=== PATIENT | female | born 1950 | race Caucasian/White ===

== ENCOUNTER → 2016-12-07 | Outpatient (CLI) | payer BC, OTHER ==
[~2016-12-07] MED LIST: ASPCH81X PO; BIOT1CAP8 PO; CALC-51 PO; CHOL20009 PO; DICY10CA12 PO; FLUT0.15 NAE; GLUC1CAP33 PO; LEVO75TA5 PO; MULT-506 PO; NAPR1CAP12 PO; PRM/3 PO; ROSU5TAB PO; TYLOTC500 PO; VITACAP26 PO
[2016-12-07 13:13] LABS: ALT/SGPT 35 U/L (12-78); BLOOD UREA NITROGEN 10 mg/dl (7-18); BUN/CREATININE RATIO 15.8 (10-20); CALCIUM 9.6 mg/dl (8.5-10.1); CARBON DIOXIDE 26 mmol/L (21-32); CHLORIDE 107 mmol/L (98-107); CHOLESTEROL 189 mg/dl (0-200); CREATININE 0.66 mg/dl (0.60-1.20); GLUCOSE 89 mg/dl (70-99); POTASSIUM 4.4 mmol/L (3.5-5.1); SODIUM 142 mmol/L (136-145); TRIGLYCERIDES 140 mg/dl (0-150); VERY LOW DENSITY LIPOPROT CALC 28 mg/dl
[2016-12-07 13:23] LABS: ALB/GLOB RATIO 1.1 (0.9-2); ALKALINE PHOSPHATASE 85 U/L (45-117); AST/SGOT 24 U/L (15-37); CHOLESTEROL/HDL RATIO 2.7; HDL CHOLESTEROL 70 mg/dl; LDL CHOLESTEROL CALCULATED 91 mg/dl; THYROID STIMULATING HORMONE 0.994 uIu/ml (0.300-4.500)
== END | disposition home or self-care (01) ==
LOC: C.LABBFT 09:56
PROVIDERS: ATTEND Nurse Practitioner
DX: E78.5 Hyperlipidemia, unspecified (principal); E03.9 Hypothyroidism, unspecified

== ENCOUNTER → 2017-02-22 | Outpatient (CLI) | payer OTHER ==
--- NOTE | 2017-02-27 09:09 | CODING QUERY MEDICAL NECESSITY ---
SUPPORTING DIAGNOSIS NEEDED Dr. Henson, A supporting diagnosis is required for the test/procedure performed on this patient in order for us to be reimbursed by the patient's insurance. Please provide a supporting diagnosis for the following test/procedure listed below next to the test name along with your signature. *If there is no additional diagnosis for this patient that would support the following test/procedure please document that below next to the test/procedure. Test(s)/Procedure(s) that require a supporting diagnosis: * ([id number]) DXA BONE DENSITY, AXIAL DIAGNOSIS: DATE OF SERVICE: 02/22/17 Provider Signature: Date: Thank you Rufus Taylor [facility] Information Management Once completed, please kindly fax back to [phone] For questions please call [phone]
== END | disposition home or self-care (01) ==
LOC: C.MAMM 10:51
PROVIDERS: ATTEND Nurse Practitioner
DX: Z13.820 Encounter for screening for osteoporosis (principal); E89.40 Asymptomatic postprocedural ovarian failure; Z79.899 Other long term (current) drug therapy

== ENCOUNTER → 2017-03-30 | Outpatient (CLI) | payer BC, OTHER ==
--- NOTE | 2017-03-30 14:53 | MAMMOGRAPHY REPORT ---
BILATERAL DIGITAL SCREENING MAMMOGRAM WITH CAD: 03/30/2017 CLINICAL HISTORY: Routine screening. Patient has no complaints. TECHNIQUE: Current study was also evaluated with a Computer Aided Detection (CAD) system. Bilatera l CC and MLO views were obtained. COMPARISON: Comparison is made to exams dated: 03/24/2015 mammogram, 03/23/2014 mammogram, 03/19/2013 dilshad mogram, 03/18/2012 mammogram, 03/17/2011 mammogram, and 03/16/2010 mammogram - [facility] nt. BREAST COMPOSITION: The tissue of both breasts is almost entirely fatty. FINDINGS: No suspicious masses, calcifications, or areas of architectural distortion are noted in e ither breast. There has been no significant interval change compared to prior exams. Scattered bilat eral benign-appearing calcifications are not significantly changed. IMPRESSION: ACR BI-RADS CATEGORY 2: BENIGN There is no mammographic evidence of malignancy. A 1 year screening mammogram is recommended. The p atient will receive written notification of the results. Approximately 10% of breast cancers are not detected with mammography. A negative mammographic repor t should not delay biopsy if a clinically suggestive mass is present. Lucinda Amor M.D. /:03/30/2017 12:48:38 Environmental Remediation Specialist: Marbella VALENZUELA(Humaira)(Josep)(ELIZABETH), [facility] letter sent: Normal 1/2 BI-RADS Code: ACR BI-RADS Category 2: Benign
== END | disposition home or self-care (01) ==
LOC: C.MAMM 10:10
PROVIDERS: ATTEND Nurse Practitioner
DX: Z12.31 Encounter for screening mammogram for malignant neoplasm of breast (principal); Z79.899 Other long term (current) drug therapy; E87.5 Hyperkalemia; E03.9 Hypothyroidism, unspecified; M15.9 Polyosteoarthritis, unspecified; J31.0 Chronic rhinitis

== ENCOUNTER → 2017-06-12 | Outpatient (CLI) | payer OTHER ==
[2017-06-12 12:48] LABS: ALB/GLOB RATIO 1.1 (0.9-2); ALKALINE PHOSPHATASE 84 U/L (45-117); ALT/SGPT 33 U/L (12-78); AST/SGOT 24 U/L (15-37); BLOOD UREA NITROGEN 14 mg/dl (7-18); BUN/CREATININE RATIO 19.4 (10-20); CALCIUM 9.3 mg/dl (8.5-10.1); CARBON DIOXIDE 29 mmol/L (21-32); CHLORIDE 105 mmol/L (98-107); CHOLESTEROL 206 mg/dl (0-200); GLUCOSE 89 mg/dl (70-99); HDL CHOLESTEROL 68 mg/dl; POTASSIUM 3.9 mmol/L (3.5-5.1); SODIUM 140 mmol/L (136-145)
[2017-06-12 13:02] LABS: LDL CHOLESTEROL CALCULATED 106 mg/dl; TRIGLYCERIDES 161 mg/dl (0-150); VERY LOW DENSITY LIPOPROT CALC 32 mg/dl
--- NOTE | 2017-06-19 09:11 | CODING QUERY MEDICAL NECESSITY ---
SUPPORTING DIAGNOSIS NEEDED Sixto SON, A supporting diagnosis is required for the test/procedure performed on this patient in order for us to be reimbursed by the patient's insurance. Please provide a supporting diagnosis for the following test/procedure listed below next to the test name along with your signature. *If there is no additional diagnosis for this patient that would support the following test/procedure please document that below next to the test/procedure. Test(s)/Procedure(s) that require a supporting diagnosis: * ([id number]) VITAMIN D ASSAY DIAGNOSIS: DATE OF SERVICE: 06/12/17 Provider Signature: Date: Thank you Rufus Taylor [facility] Information Management Once completed, please kindly fax back to [phone] For questions please call [phone]
== END | disposition home or self-care (01) ==
LOC: C.LABBFT 10:10
PROVIDERS: ATTEND Nurse Practitioner
DX: M15.9 Polyosteoarthritis, unspecified (principal); E78.5 Hyperlipidemia, unspecified; E03.9 Hypothyroidism, unspecified; Z13.820 Encounter for screening for osteoporosis

== ENCOUNTER → 2017-10-18 | Outpatient (CLI) | payer OTHER ==
[2017-10-18 14:39] LABS: URINE APPEARANCE CLEAR (CLEAR); URINE BILIRUBIN NEG (NEG); URINE COLOR YELLOW; URINE NITRITE NEG (NEG); URINE SPECIFIC GRAVITY 1.019 (1.000-1.030); UROBILINOGEN NEG (NEG)
[2017-10-18 14:40] LABS: MANUAL MICROSCOPIC REQUIRED? NO; REVIEW REQ? NO
[2017-10-18 14:42] LABS: BASO % 0.4 %; BASO ABS # 0.03 K/uL (0-0.2); COMPLETE YES; EOS % 2.2 %; HEMATOCRIT 42.3 % (37-47); IG% 0.3 %; LYMPH % 24.8 %; LYMPH ABS # 1.78 K/uL (1.2-3.4); MEAN CELL VOLUME 96.6 fL (80-100); MEAN CORPUSCULAR HEMOGLOBIN 32.2 pg (25-34); MEAN CORPUSCULAR HGB CONC 33.3 g/dl (32-36); MEAN PLATELET VOLUME 10.8 fL (7.4-10.4); MONO % 6.5 %; NEUT % 65.8 %; PLATELET COUNT 296 K/uL (130-400); RED BLOOD COUNT 4.38 M/uL (4.2-5.4); WHITE BLOOD COUNT 7.19 K/uL (4.8-10.8)
== END | disposition home or self-care (01) ==
LOC: C.LAB1850 12:19
PROVIDERS: ATTEND Obstetrics & Gynecology
DX: Z01.812 Encounter for preprocedural laboratory examination (principal)

== ENCOUNTER → 2017-11-16 | Day surgery (SDC) | payer OTHER ==
[2017-11-01 09:20] VITALS: BMI 45.0
[~2017-11-16] VITALS: Ht 160 cm; Wt 115.9 kg
[~2017-11-16] MED LIST changes: +ATROPINE SULFATE 0.1 MG/ML 5ML SYR IV PRN; +BIOT1CAP3 PO; -BIOT1CAP8 PO; +BUPIVACAINE 0.5 % 5 MG/1 ML MPF 30ML VIAL ONE; -DICY10CA12 PO; +EpHEDrine SULFATE INJ 50 MG/ML AMP IV PRN; +FENTANYL CITRATE INJ 50 MCG/1 ML 2 ML VIAL IV PRN; +FENTANYL CITRATE INJ 50 MCG/1 ML 2 ML VIAL ONE; +HYDR-5688 PO; +HYDROmorphone INJ 1 MG/ML SYR IV PRN; +KETOROLAC TROMETHAMINE 30 MG/ML VIAL IV. PRN; +LABETALOL HCL IV 5 MG/ML 20ML IV PRN; +LACTATED RINGER'S 1000ML 1,000 ML IV SCH; +LIDOCAINE HCL 2% 2 ML VIAL (20MG/ML) ONE; +MEPERIDINE HCL 25 MG/ML CARP IV PRN; +MIDAZOLAM HCL 1 MG/ML 2ML VIAL ONE; +ONDANSETRON INJ 2 MG/ML 2 ML VIAL IV PRN; +ONDANSETRON INJ 2 MG/ML 2 ML VIAL ONE; +OXYCODONE/ACETAMINOPHEN 5-325 TAB PO PRN; -PRM/3 PO; +PROPOFOL IV EMULSION 10 MG/ML 20 ML VIAL IV ONE; +SILVER NITR/POTASSIUM NITRATE APPLICATOR ONE; +SODIUM CHLORIDE 0.9% 1000ML 1,000 ML IV SCH
[2017-11-16 08:57] VITALS: BP 165/71; PULSE 87; TEMP 36.9; O2SAT 96; Ht 160 cm; Wt 115.9 kg
--- NOTE | 2017-11-16 10:42 | History & Physical Bridge Note ---
H&P Re-Evaluation Bridge Note: I have examined the patient, reviewed the History & Physical and in the interval since the performance of the History & Physical I have noted the following changes of clinical significance: No changes noted
--- NOTE | 2017-11-16 12:07 | [facility] Post Operative Brief Note ---
Immediate Operative Summary Operative Date Nov 16, 2017. Pre-Operative Diagnosis Bartholin Gland Cyst Post-Operative Diagnosis Bartholin Gland Cyst Procedure(s) Performed Right Marsupialization and Removal Bartholin's Cyst Surgeon Dr. Grace Lopez Television Inspector Surgeon(s) None Estimated Blood Loss 100ml Findings 2cm Bartholin's Cyst. Otherwise normal appearing tissue. Specimens Permanent Solution: A.) Bartholin's Gland Cyst Drains none, bladder drained prior to procedure Anesthesia general Complication(s) None Disposition Recovery Room / PACU
--- NOTE | 2017-11-16 12:10 | Discharge Instructions ---
Discharge Instructions Date of Service Nov 16, 2017. Visit Reason for Visit: Bartholin Gland Cyst Discharge Discharge Diagnosis / Problem: Bartholin Gland Cyst Discharge Goals Goal(s): Diagnostic testing, Therapeutic intervention Activity Recommendations Activity Limitations: per Instructions/Follow-up section Anesthesia . Post Anesthesia Instructions: If you have had General Anesthesia or IV Sedation: * Do not drive today. * Resume driving when surgeon permits. * Do not make important decisions or sign legal documents today. * Call surgeon for: 1. Temperature elevations greater than 101 degrees F. 2. Uncontrollable pain. 3. Excessive bleeding. 4. Persistent nausea and vomiting. 5. Medication intolerance (nausea, vomiting or rash). * For nausea and vomiting use only clear liquids such as: tea, soda, bouillon until nausea subsides, then gradually increase diet as tolerated. * If you have any concerns or questions, call your surgeon's office. If physician is unavailable and it is an emergency, call 911 or go to the nearest emergency room. . Instructions / Follow-Up Instructions / Follow-Up ACTIVITY RECOMMENDATIONS: * Avoid tampons, douching, hot tubs, pools, and intercourse until bleeding has stopped. * May shower as usual. * No strenuous activity for 24-48 hours. After 24-48 hours, you may do anything you feel like doing (driving and sports are okay). SPECIAL CARE INSTRUCTIONS: Special Diet: * Mild nausea may occur in the immediate post-operative period. * Take clear liquids such as tea, cola or bouillon until all nausea has subsided; you may then resume your normal diet. Special Care: * Light bleeding and vaginal spotting can last from a few days to 3-4 weeks. Call your doctor if bleeding becomes heavier than the heaviest part of your period. * Check your temperature twice a day for one week. If it goes above 100.4 degrees Fahrenheit (38.0 Celsius), notify your doctor. * Call your doctor's office for an appointment for 2 weeks after your surgery. FOLLOW-UP VISIT: Call your doctor's office for an appointment for 2 weeks after your surgery. Diet Recommendations Recommended Home Diet: resume previous diet Procedures Procedures Performed: Right Marsupialization and Removal Bartholin's Cyst Pending Studies Studies pending at discharge: yes List of pending studies: pathology - Bartholin's cyst Medical Emergencies . Who to Call and When: Medical Emergencies: If at any time you feel your situation is an emergency, please call 911 immediately. . Non-Emergent Contact Non-Emergency issues call your: Primary Care Provider, Instructional Specialist . . "Provider Documentation" section prepared by Grace Lopez. . [place] Drug Monitoring Program Search Results: patient reviewed within database
--- NOTE | 2017-11-16 12:37 | OPERATIVE REPORT ---
DATE OF OPERATION: 11/16/2017 PREOPERATIVE DIAGNOSIS: Bartholin gland cyst. POSTOPERATIVE DIAGNOSIS: Same. PROCEDURES PERFORMED: Right marsupialization and removal of Bartholin cyst. SURGEON: Grace Lopez DO REVIT DRAFTER: None. ESTIMATED BLOOD LOSS: 100 mL. FINDINGS: A 2-cm Bartholin cyst. Otherwise normal appearing tissue. SPECIMENS: Bartholin gland cyst. DRAINS: None. Bladder drained prior to procedure. ANESTHESIA: General. COMPLICATIONS: None. DISPOSITION: Stable and good to recovery room. INDICATIONS FOR PROCEDURE: The patient is a 66-year-old who had a persistent right Bartholin cyst, approximately 2 cm. It was noticeable, but not tender due to the patient's age and therefore, risk for malignancy, she elected to have it removed. DESCRIPTION OF PROCEDURE: The patient was seen in the preoperative holding area, where risks, benefits, and alternatives were reviewed. She elected to proceed with the case. All questions were answered to her satisfaction. She had previously signed an informed consent in the office under no duress. She was taken to the operating room, where general anesthesia was administered. She was prepared and draped in the usual sterile fashion in the dorsal lithotomy position with feet in Yellofin stirrups. Allis clamps were used to retract tissue to visualize the Bartholin cyst. It was right-sided nondraining and approximately 2 cm mobile. A scalpel was used to make an incision on the anterior aspect of the hymenal ring. I attempted to shell out the cyst wall; however, the cyst ruptured for clear fluid during this process. Therefore, the cyst wall was grasped with hemostats and carefully dissected from the surrounding tissue with both blunt dissection and Bovie cautery. This was then sent to pathology. Using Bovie cautery, hemostasis was attempted. Due to multiple small oozing bleeders, 3-0 Vicryl stitch suture was used to suture the Bartholin cyst wall edges in a circumferential fashion. Excellent hemostasis was achieved. The patient was then taken to the recovery area in stable and good condition. I attest to the content of the Intraoperative Record and any orders documented therein. Any exception s are noted below.
--- NOTE | 2017-11-16 12:58 | Anesthesiology Progress Note ---
Anesthesia Post Op Note Date & Time Nov 16, 2017 at 12:57 Vital Signs Pain Intensity: 0 Vital Signs Past 12 Hours Date Time Temp Pulse Resp B/P (MAP) Pulse Ox O2 Delivery O2 Flow Rate FiO2 11/16/17 12:51 85 23 96 11/16/17 12:51 86 23 11/16/17 12:50 154/85 11/16/17 12:46 84 17 98 11/16/17 12:46 85 17 11/16/17 12:45 136/84 11/16/17 12:41 80 15 11/16/17 12:41 81 15 99 11/16/17 12:40 135/76 11/16/17 12:36 85 17 11/16/17 12:36 84 17 132/82 98 11/16/17 12:33 36.7 89 19 132/82 (97) 98 11/16/17 12:31 95 19 98 11/16/17 12:31 94 19 11/16/17 12:30 139/87 11/16/17 12:29 91 18 11/16/17 12:29 89 18 96 11/16/17 12:29 89 18 96 11/16/17 12:29 91 18 11/16/17 12:25 131/87 11/16/17 12:25 131/87 11/16/17 12:24 93 15 97 11/16/17 12:24 93 15 97 11/16/17 12:24 91 15 11/16/17 12:24 91 15 11/16/17 12:20 120/76 11/16/17 12:20 120/76 11/16/17 12:19 93 17 95 11/16/17 12:19 95 17 11/16/17 12:19 93 17 95 11/16/17 12:19 95 17 11/16/17 12:15 123/65 11/16/17 12:15 123/65 11/16/17 12:14 89 12 11/16/17 12:14 89 12 11/16/17 12:14 88 12 99 11/16/17 12:14 88 12 99 11/16/17 12:10 132/71 11/16/17 12:10 132/71 11/16/17 12:09 36.4 88 12 136/77 (98) 98 Nasal Cannula 2 11/16/17 12:09 88 14 136/77 95 11/16/17 12:09 88 14 136/77 95 11/16/17 12:09 88 14 11/16/17 12:09 88 14 11/16/17 08:57 36.9 87 20 165/71 (102) 96 Room Air Notes Mental Status: alert / awake / arousable, participated in evaluation Pt Amnestic to Procedure: Yes Nausea / Vomiting: adequately controlled Pain: adequately controlled Airway Patency, RR, SpO2: stable & adequate BP & HR: stable & adequate Hydration State: stable & adequate Anesthetic Complications: no major complications apparent
[2017-11-16 13:00] VITALS: BP 147/77; PULSE 85; TEMP 36.4; O2SAT 96
[2017-11-16 13:30] VITALS: BP 137/86; PULSE 73; TEMP 36.3; O2SAT 100
[2017-11-16 14:00] VITALS: BP 184/88; PULSE 77; TEMP 36.4; O2SAT 95
== END | disposition home or self-care (01) ==
LOC: C.ACU 08:35
PROVIDERS: ATTEND Obstetrics & Gynecology
DX: N75.0 Cyst of Bartholin's gland (principal); E78.5 Hyperlipidemia, unspecified; E03.9 Hypothyroidism, unspecified; E66.9 Obesity, unspecified; Z79.82 Long term (current) use of aspirin; E78.00 Pure hypercholesterolemia, unspecified; M19.90 Unspecified osteoarthritis, unspecified site; Z90.710 Acquired absence of both cervix and uterus; Z90.49 Acquired absence of other specified parts of digestive tract; Z88.0 Allergy status to penicillin; K21.9 Gastro-esophageal reflux disease without esophagitis

== ENCOUNTER → 2018-01-07 | Outpatient (CLI) | payer OTHER ==
[~2018-01-07] MED LIST changes: -ATROPINE SULFATE 0.1 MG/ML 5ML SYR IV PRN; -BUPIVACAINE 0.5 % 5 MG/1 ML MPF 30ML VIAL ONE; -EpHEDrine SULFATE INJ 50 MG/ML AMP IV PRN; -FENTANYL CITRATE INJ 50 MCG/1 ML 2 ML VIAL IV PRN; -FENTANYL CITRATE INJ 50 MCG/1 ML 2 ML VIAL ONE; -HYDR-5688 PO; -HYDROmorphone INJ 1 MG/ML SYR IV PRN; -KETOROLAC TROMETHAMINE 30 MG/ML VIAL IV. PRN; -LABETALOL HCL IV 5 MG/ML 20ML IV PRN; -LACTATED RINGER'S 1000ML 1,000 ML IV SCH; -LIDOCAINE HCL 2% 2 ML VIAL (20MG/ML) ONE; -MEPERIDINE HCL 25 MG/ML CARP IV PRN; -MIDAZOLAM HCL 1 MG/ML 2ML VIAL ONE; -ONDANSETRON INJ 2 MG/ML 2 ML VIAL IV PRN; -ONDANSETRON INJ 2 MG/ML 2 ML VIAL ONE; -OXYCODONE/ACETAMINOPHEN 5-325 TAB PO PRN; -PROPOFOL IV EMULSION 10 MG/ML 20 ML VIAL IV ONE; -SILVER NITR/POTASSIUM NITRATE APPLICATOR ONE; -SODIUM CHLORIDE 0.9% 1000ML 1,000 ML IV SCH
[2018-01-07 12:42] LABS: HEMATOCRIT 42.6 % (37-47); HEMOGLOBIN 14.3 g/dL (12.0-16.0); MEAN CELL VOLUME 96.2 fL (80-100); MEAN CORPUSCULAR HEMOGLOBIN 32.3 pg (25-34); MEAN CORPUSCULAR HGB CONC 33.6 g/dl (32-36); MEAN PLATELET VOLUME 10.6 fL (7.4-10.4); PLATELET COUNT 304 K/uL (130-400); RED CELL DISTRIBUTION WIDTH CV 14.2 % (11.5-14.5); RED CELL DISTRIBUTION WIDTH SD 49.8 fL (36.4-46.3); WHITE BLOOD COUNT 5.24 K/uL (4.8-10.8)
[2018-01-07 13:46] LABS: BLOOD UREA NITROGEN 13 mg/dl (7-18); CALCIUM 9.9 mg/dl (8.5-10.1); CARBON DIOXIDE 30 mmol/L (21-32); CHOLESTEROL 204 mg/dl (0-200); GLUCOSE 89 mg/dl (70-99); POTASSIUM 4.2 mmol/L (3.5-5.1); SODIUM 141 mmol/L (136-145)
[2018-01-07 13:49] LABS: LDL CHOLESTEROL CALCULATED 108 mg/dl
== END | disposition home or self-care (01) ==
LOC: C.LABBFT 09:40
PROVIDERS: ATTEND Nurse Practitioner
DX: E78.5 Hyperlipidemia, unspecified (principal)

== ENCOUNTER → 2018-04-01 | Outpatient (CLI) | payer OTHER ==
--- NOTE | 2018-04-02 15:04 | MAMMOGRAPHY REPORT ---
BILATERAL DIGITAL SCREENING MAMMOGRAM TOMOSYNTHESIS WITH CAD: 04/01/2018 CLINICAL HISTORY: Routine screening. Patient has no complaints. TECHNIQUE: Breast tomosynthesis in addition to standard 2D mammography was performed. Current study was also evaluated with a Computer Aided Detection (CAD) system. COMPARISON: Comparison is made to exams dated: 03/30/2017 mammogram, 03/27/2016 mammogram, 03/24/2015 dilshad mogram, 03/23/2014 mammogram, 03/19/2013 mammogram, and 03/18/2012 mammogram - [facility] BREAST COMPOSITION: The tissue of both breasts is almost entirely fatty. FINDINGS: There are scattered benign-appearing calcifications. A 10 mm focal asymmetry in the upper outer middle to posterior right breast is stable in size and visual appearance dating back to at leas t 03/16/2010, therefore considered benign. No suspicious mass, architectural distortion or cluster of microcalcifications is seen. IMPRESSION: ACR BI-RADS CATEGORY 1: NEGATIVE There is no mammographic evidence of malignancy. A 1 year screening mammogram is recommended. The pa tient will receive written notification of the results. Approximately 10% of breast cancers are not detected with mammography. A negative mammographic report should not delay biopsy if a clinically suggestive mass is present. Lamar Vee M.D. ay/:04/01/2018 16:57:25 Vp Cardiovascular Service Line: Jennifer VALENZUELA(R)(Josep), [facility] letter sent: Normal 1/2 BI-RADS Code: ACR BI-RADS Category 1: Negative
== END | disposition home or self-care (01) ==
LOC: C.MAMM 11:25
PROVIDERS: ATTEND Obstetrics & Gynecology
DX: Z12.31 Encounter for screening mammogram for malignant neoplasm of breast (principal)

== ENCOUNTER → 2018-06-14 | Outpatient (CLI) | payer OTHER ==
--- NOTE | 2018-06-14 10:48 | DIAGNOSTIC IMAGING REPORT ---
PELVIS/UNILATERAL HIP 2-3VIEWS HISTORY: 67 years-old Female R10.30 acute pelvis and right hip pain COMPARISON: None available TECHNIQUE: AP view of the pelvis with 2 views of the right hip FINDINGS: Degenerative changes of the SI joints, pubic symphysis and lower lumbar spine. 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 There is no acute fracture or dislocation. Phleboliths about the pelvis. IMPRESSION: No acute fracture or dislocation. The above report was generated using voice recognition software. It may contain grammatical, syntax or spelling errors. Electronically signed by: Brenton Avilez M.D. 06/14/2018 10:46 AM Dictated Date/Time: 06/14/2018 10:45 AM
== END | disposition home or self-care (01) ==
LOC: C.RAD1850 10:14
PROVIDERS: ATTEND Nurse Practitioner
DX: R10.30 Lower abdominal pain, unspecified (principal); M25.551 Pain in right hip

== ENCOUNTER → 2018-07-08 | Outpatient (CLI) | payer OTHER ==
[2018-07-08 13:53] LABS: ALBUMIN 3.9 gm/dl (3.4-5.0); ALKALINE PHOSPHATASE 74 U/L (45-117); ALT/SGPT 26 U/L (12-78); AST/SGOT 16 U/L (15-37); BLOOD UREA NITROGEN 15 mg/dl (7-18); CALCIUM 9.1 mg/dl (8.5-10.1); CARBON DIOXIDE 28 mmol/L (21-32); CHOLESTEROL 198 mg/dl (0-200); GLUCOSE 97 mg/dl (70-99); LDL CHOLESTEROL CALCULATED 99 mg/dl; SODIUM 141 mmol/L (136-145); TOTAL PROTEIN 7.3 gm/dl (6.4-8.2)
== END | disposition home or self-care (01) ==
LOC: C.LABBFT 09:19
PROVIDERS: ATTEND Nurse Practitioner
DX: E78.5 Hyperlipidemia, unspecified (principal); E03.9 Hypothyroidism, unspecified

== ENCOUNTER 2020-10-15 10:52 | Inpatient (IN) ==
[2020-10-15] MEDS ORDERED: DEXAMETHASONE SOD INJ 10 MG/ML VIAL IV ONE ×2 (11:23→20:33)
[2020-10-15] MEDS: SODIUM CHLORIDE 0.9% 1000ML 1,000 ML IV SCH ×2 (11:30→21:10)
--- NOTE | 2020-10-15 11:47 | XRay Report ---
XR chest 1V portable HISTORY: 69 years-old Female SEPSIS acute sepsis COMPARISON: CT abdomen 05/23/2007 TECHNIQUE: Portable AP view of the chest. FINDINGS: Cardiac silhouette is upper limits of normal in size. Mild asymmetric right hilar prominence. There i s unchanged right hemidiaphragmatic elevation. Pulmonary vascular congestion with radicular opacities . Calcified granuloma of the left upper lung. No pneumothorax, large pleural effusion or lobar airspa ce consolidation. Degenerative changes of the shoulders and spine with left shoulder rotator cuff river cific tendinosis. Cholecystectomy. IMPRESSION: 1. Pulmonary vascular congestion with bilateral reticular opacities are suggestive of pulmonary edema versus atypical pneumonitis. 2. Asymmetric right hilar prominence may be projectional or reflect underlying adenopathy or lesion. Attention at follow-up recommended. ACT 112: Negative or not required by law. The above report was generated using voice recognition software. It may contain grammatical, syntax o r spelling errors. Electronically signed by: Brenton Avilez M.D. 10/15/2020 11:46 AM
[2020-10-15 11:55] LABS: Basophils # (auto) 0.01 K/uL (0-0.2); Basophils % (auto) 0.1 %; Hematocrit (blood only) 45.8 % (37-47); Hemoglobin 15.8 g/dL (12.0-16.0); Immature Granulocytes # (auto) 0.13 K/uL (0.00-0.02); Immature Granulocytes % (auto) 1.1 %; Lymphocytes # (auto) 0.56 K/uL (1.2-3.4); Lymphocytes % (auto) 4.8 %; Mean Corpuscular Hemoglobin 32.9 pg (25-34); Mean Corpuscular Hgb Conc 34.5 g/dL (32-36); Mean Corpuscular Volume 95.4 fL (80-100); Mean Platelet Volume 10.7 fL (7.4-10.4); Monocytes # (auto) 0.57 K/uL (0.11-0.59); Monocytes % (auto) 4.9 %; Neutrophils # (auto) 10.38 K/uL (1.4-6.5); Neutrophils % (auto) 89.1 %; Nucleated RBC # (auto) 0.03 K/uL (0-0); Nucleated RBC % (auto) 0.2 %; Platelet Count 299 K/uL (130-400); RDW Coefficient of Variation 13.5 % (11.5-14.5); RDW Standard Deviation 47.5 fL (36.4-46.3); White Blood Count 11.65 K/uL (4.8-10.8)
[2020-10-15 11:56] LABS: Base Excess VBG 3.9 mEq/L; Oxygen Saturation VBG 63.5 %; pH VBG 7.43 (7.36-7.41)
[2020-10-15 12:01] LABS: iSTAT Creatinine 0.9 mg/dl (0.6-1.3); iSTAT Hemoglobin 15.6 g/dl (12.0-16.0); iSTAT Ionized Calcium 1.04 mmol/l (1.12-1.32); iSTAT Potassium 3.5 mmol/L (3.3-5.0)
[2020-10-15 12:06] LABS: INR 1.1 (0.9-1.1); Partial Thromboplastin Ratio 0.9; Partial Thromboplastin Time 24.2 Seconds (21.0-31.0); Prothrombin Time 11.2 Seconds (9.0-12.0)
[2020-10-15 12:16] LABS: Alanine Aminotransferase 60 U/L (12-78); Albumin Level 2.8 gm/dl (3.4-5.0); Aspartate Aminotransferase 73 U/L (15-37); BUN Creatinine Ratio 31.2 (10-20); Blood Urea Nitrogen 29 mg/dl (7-18); Calcium 9.1 mg/dl (8.5-10.1); Carbon Dioxide 28 mmol/L (21-32); Chloride 101 mmol/L (98-107); Creatinine Clr Calc Pharmacy 67.5 ml/min; Est GFR (African American) 74.2; Glucose 129 mg/dl (70-99); Magnesium 2.8 mg/dl (1.8-2.4); Potassium 3.5 mmol/L (3.5-5.1); Sodium 136 mmol/L (136-145)
[2020-10-15 12:21] LABS: Albumin Globulin Ratio 0.6 (0.9-2); Alkaline Phosphatase 78 U/L (45-117); Bilirubin,Total 0.7 mg/dl (0.2-1); Creatine Kinase 182 U/L (26-192); Total Protein 7.8 gm/dl (6.4-8.2); Troponin I < 0.015 ng/ml (0-0.045)
[2020-10-15] MEDS ORDERED: OPTIRAY 320 125ml IV ONE (13:02)
--- NOTE | 2020-10-15 13:24 | CT Scan Report ---
CT head/brain wo con CLINICAL HISTORY: 69 years-old Female with fall. Acute head injury status post fall. TECHNIQUE: Multiple axial CT images of the head were obtained without contrast. A dose lowering tech nique was utilized adhering to the principles of ALARA. CT DOSE: 776.86 mGycm COMPARISON: Brain MRI 01/29/2019 FINDINGS: No acute intracranial hemorrhage, midline shift, intracranial mass, hydrocephalus, territorial ischem ia or abnormal extra-axial collection. Patchy white matter hypodensities suggest chronic microvascula r ischemic disease. The calvarium is intact. The paranasal sinuses, mastoid air cells, and middle ear cavities are clear . IMPRESSION: No acute intracranial abnormality or calvarial fracture. ACT 112: Negative or not required by law. The above report was generated using voice recognition software. It may contain grammatical, syntax o r spelling errors. Electronically signed by: Brenton Avilez M.D. 10/15/2020 1:17 PM
--- NOTE | 2020-10-15 13:30 | CT Scan Report ---
CT cervical spine wo con CT DOSE: 466.95 mGycm CLINICAL HISTORY: 69 years-old Female with fall. Acute head and neck injury status post fall COMPARISON: Head CT of same day TECHNIQUE: Multiple axial CT images of the cervical spine were obtained without contrast. A dose low ering technique was utilized adhering to the principles of ALARA. FINDINGS: Multilevel disc space narrowing, moderate at C5-C6. Mostly mild multilevel spondylitic spurring with mild to moderate facet arthrosis. No acute fracture or subluxation. Evaluation of the central canal a nd neuroforamina is better assessed by MRI. Bilateral neuroforaminal narrowing appears to be at least mild to moderate C5-C6. Groundglass opacities with mosaic attenuation are noted involving the imaged lung apices. No pneumoth orax. Suspected plaque of the carotid bulbs. IMPRESSION: 1. No acute fracture or subluxation. 2. Biapical pulmonary opacities are better characterized in detail on the CTA chest study of same day . ACT 112: Negative or not required by law. The above report was generated using voice recognition software. It may contain grammatical, syntax o r spelling errors. Electronically signed by: Brenton Avilez M.D. 10/15/2020 1:28 PM
--- NOTE | 2020-10-15 13:34 | CT Scan Report ---
CT ANGIOGRAPHY OF THE CHEST, PULMONARY EMBOLUS PROTOCOL CLINICAL HISTORY: Shortness of breath and cough. Covid. COMPARISON STUDY: Chest radiograph performed earlier today. TECHNIQUE: Following IV administration of 119 mL of Optiray-320, helical axial images of the chest we re obtained utilizing the pulmonary embolus protocol. Maximal intensity projections and sagittal and coronal reformats were viewed on an independent 3D workstation. IV contrast was administered withou t complication. Automated exposure control was utilized for the study. A dose lowering technique wa s utilized adhering to the principles of ALARA. CT DOSE: 652.55 mGycm FINDINGS: No pulmonary emboli are identified although the segmental and subsegmental pulmonary arter ies are suboptimally assessed given respiratory motion. Prominent mediastinal and bilateral hilar lym ph nodes are likely reactive. Mild cardiomegaly is noted. There is no pericardial effusion. There is no pneumothorax or pleural effusion. Extensive groundglass opacities are noted. There is also moderat e consolidation within the bilateral lower lobes. No cavitation is present. Central airways are paten t. No acute rib or thoracic spine fracture is noted although sensitivity for detection of fractures i s diminished given motion artifact. A small hiatal hernia is present. Gallbladder is surgically absen t. Several hepatic cysts are incidentally noted. IMPRESSION: 1. No pulmonary emboli identified although segmental and subsegmental pulmonary arteries suboptimally assessed due to respiratory motion. 2. Extensive groundglass opacities throughout the lungs with bilateral lower lobe consolidation. Thes e findings represent an infectious process. 3. Small hiatal hernia. 4. Cardiomegaly. ACT 112: Negative or not required by law. Electronically signed by: Israel Gar M.D. 10/15/2020 1:32 PM
[2020-10-15] MEDS ORDERED: ONDANSETRON INJ 2 MG/ML 2 ML VIAL IV STA (13:45)
--- NOTE | 2020-10-15 14:18 | History & Physical Report ---
Date of Service October 15, 2020 Assessment & Plan (1) Sepsis: Lactate 2.2 -> 1.5 Source - COVID-19 +/- possible bacterial PNA Procalcitonin negative but given severity of illness on imaging and hypoxia with mildly increased WBC will cover for bacterial PNA. Given penicillin allergy with "respiratory distress" will start aztreonam and levaquin - both niece and patient are unable to elaborate on this allergy. MRSA nose swab negative therefore will hold off vancomycin at the present time. Influenza negative Follow up blood cultures UA pending but no symptoms suggestive of UTI. (2) Pneumonia due to COVID-19 virus: Decadron 6 mg IV given in ER. Continue Decadron 6 mg IV daily for 9 further days. Discussed remdesivir and convalescent plasma - she agrees to both these interventions. FDA patient information sheets given to patient and blood consent signed. Self prone as able. Consult pulmonology. (3) Acute respiratory failure with hypoxia: Aim O2 sats > 90%. Currently adequate on high flow oxygen @ 40LPM, FiO2 100%. (4) Prediabetes: HbA1C 5.9 in May. Will repeat with AM labs. Glucose 129 on admission. BSG ACHS and will initially use correction factor only Novolog in case dexamethasone increases her glucose levels. (5) Hyperlipidemia: Continue her usual rosuvastatin dosing. (6) GERD (gastroesophageal reflux disease): Continue her usual pantoprazole 40mg PO daily (7) Esophageal dysmotility: Aspiration precautions. (8) Hypothyroidism: TSH 1.31 in Aug. Continue levothyroxine 75 mcg PO daily (9) Anxiety: Will reduce her usual clonazepam 0.5 -> 0.25mg q12h PRN as does not use this regularly and to avoid respiratory depression. (10) DVT prophylaxis: Lovenox 40mg SQ BID Admission and Anticipated Discharge Date Admission Date: 10/15/2020 History of Present Illness Primary Care Provider: ADELAIDA Lopes Diane Garcia is a 69 year old female who presents to the ER with cold-like symptoms and recent diagnosis of COVID-19 pneumonia. She reports initially having cold symptoms since the (12 days ago). Symptoms including sore throat, chills, generalized weakness, myalgias, right sided headache and non- productive cough. She denies any objective fevers or shortness of breath. She reports feeling nauseous and losing her appetite. Notes she has not eaten properly for days and main issue is being generally weak to the point most of yesterday she spent on the floor too weak to get up. I discussed her care with the patient's permission with her niece Dipak who confirms the above history. She also notes thinking her Aunt seemed not to be able to complete her sentences yesterday due to shortness of breath and has been getting increasingly confused in addition to generalized weakness. She encouraged her Aunt to call for an ambulance yesterday but she refused. Today she was unable to contact her by phone so called for an ambulance herself. In the ER O2 sats were as low as 65% on room air (when her high flow became disconnected). CXR and subsequent CT concerning for extensive groundglass opacities bilaterally. She was started on treatment for COVID-19 pneumonia with Dexamethasone and referred to medicine for admission. Allergies Allergy/AdvReac Type Severity Reaction Status Date / Time Penicillins Allergy Severe RESP Verified 07/15/20 09:32 DISTRESS/HIVES Home Medications Medication Instructions Recorded Confirmed Type Glucosamine Chondroitin 1 cap PO BID 04/03/19 10/15/20 History aspirin [Aspirin Low Dose] 81 mg PO HS 04/03/19 10/15/20 History biotin 5,000 mcg SUBLINGUAL 1200 04/03/19 10/15/20 History calcium carbonate-vitamin D3 1 tab PO BID 04/03/19 10/15/20 History [Calcium 600 + D(3)] cholecalciferol (vitamin D3) 2,000 unit PO 1200 04/03/19 10/15/20 History [Vitamin D3] multivitamin 1 tab PO 1200 04/03/19 10/15/20 History clonazepam 0.5 mg tablet 0.5 mg PO BID PRN #60 tab 09/17/19 10/15/20 Rx ciclopirox 8 % topical solution 1 appln TOP DAILY #6.6 ml 05/26/20 10/15/20 Rx fluticasone propionate 50 1 spray INTRANASAL HS #16 gm 06/15/20 10/15/20 Rx mcg/actuation nasal spray,suspension levothyroxine 75 mcg tablet 75 mcg PO DAILY #90 tab 07/05/20 10/15/20 Rx rosuvastatin 5 mg tablet 5 mg PO .COMPLEX #36 tab 07/08/20 10/15/20 Rx meloxicam 15 mg tablet 15 mg PO DAILY PRN #30 tab 07/28/20 10/15/20 Rx ondansetron HCl 4 mg tablet 4 mg PO Q8H PRN #30 tab 10/11/20 10/15/20 Rx pantoprazole 40 mg PO DAILYBB 10/15/20 10/15/20 History Past Med/Surg History Medical History COVID-19 GERD (gastroesophageal reflux disease) History of anesthesia reaction difficulty waking Hyperlipidemia Hypothyroidism Migraine Osteoarthritis Schatzki's ring of distal esophagus Surgical History History of cholecystectomy History of colonoscopy 2004 - Mand - Divertics sigmoid History of dilatation and curettage History of oral surgery permanent bridge placed History of total hysterectomy with bilateral salpingo-oophorectomy (BSO) 12/09/2013 History of vaginal surgery bartholin cyst removal History of wisdom tooth extraction Hx of laparoscopy diagnostic Family History Sister Family history of diabetes mellitus Bleeding disorder Grandfather (Paternal) Family hx of colon cancer Father Cardiac disorder Cancer Sister Hypertension Clotting disorder Sinusitis Mother Hypertension Stroke Cancer Sinusitis Other No family history of adverse response to anesthesia Social History Smoking Status: Never smoker Second Hand Exposure: No (father smoked); Hx Alcohol Use: Yes Alcohol type: beer, wine and hard liquor Alcohol Intake Frequency Comment: Social Drinker Hx Substance Use: No Preferred Language: Wolof Communication Ability: Effective Process Tech Required: No Beliefs That Will Affect Care: None marital status: Current Living Situation: Alone Other Information That Helps Us Care for You: No Feels Safe at Home: Yes Safety Concerns: Feels Safe At This Time Assistive Devices: Glasses Review of Systems Review of Systems: All systems reviewed & are unremarkable except as noted in HPI & below Constitutional: + chills, + body aches and + fatigue Respiratory: + cough and + dyspnea on exertion; no wheezing Gastrointestinal: no abdominal pain, no heartburn, no nausea, no vomiting, no constipation and no diarrhea/loose stools Physical Exam Constitutional: well developed; + not well nourished and no acute distress Eyes: + anicteric sclerae; normal pupil size Respiratory: + retractions, + uses accessory muscles and + cough (dry); + not able to speak in complete sentence Auscultation: lungs clear to auscultation bilaterally (anteriorly) and + diminished lung sounds (bibasal, poor inspiratory effort); no crackles, no rales and no rhonchi Cardiovascular: Rate/Rhythm: regular rate and regular rhythm Heart Sounds: no murmur Vessels: no JVD Extremities: + abnormal capillary refill (6-7 seconds toes and fingers b/l equal), no calf tenderness and no pedal edema Gastrointestinal (Abdomen): Inspection/Auscultation: + hypoactive bowel sounds Percussion/Palpation: abdomen soft; abdomen nontender, no guarding and abdomen not rigid Skin: no rashes, warm and dry (no areas of cellulitis) Neurologic: moves all extremities and awake; no focal motor deficits (no laterlizing deficit) and not confused Speech / Cognition: normal speech Motor/Sensory: no tremor and no pronator drift Psychiatric: A+Ox3, euthymic affect Genitourinary: no CVA tenderness Results & Data Results & Data ([facility]) Vital Signs (Past 12 Hours) Vital Signs Temp Pulse Resp BP Pulse Ox 10/15/20 12:00 96 H 21 113/76 95 10/15/20 11:46 20 93 10/15/20 11:45 89 24 121/78 88 L 10/15/20 11:30 91 H 35 H 121/85 87 L 10/15/20 11:15 83 28 H 128/67 90 10/15/20 11:14 83 32 H 128/74 90 10/15/20 11:00 37.1 C 88 33 H 134/78 70 L 10/15/20 10:59 110 H 33 H 134/[address] head/brain wo con IMPRESSION: No acute intracranial abnormality or calvarial fracture. CT cervical spine wo con IMPRESSION: 1. No acute fracture or subluxation. 2. Biapical pulmonary opacities are better characterized in detail on the CTA chest study of same day. XR chest 1V portable IMPRESSION: 1. Pulmonary vascular congestion with bilateral reticular opacities are suggestive of pulmonary edema versus atypical pneumonitis. 2. Asymmetric right hilar prominence may be projectional or reflect underlying adenopathy or lesion. Attention at follow-up recommended. CT ANGIOGRAPHY OF THE CHEST, PULMONARY EMBOLUS PROTOCOL IMPRESSION: 1. No pulmonary emboli identified although segmental and subsegmental pulmonary arteries suboptimally assessed due to respiratory motion. 2. Extensive groundglass opacities throughout the lungs with bilateral lower lobe consolidation. These findings represent an infectious process. 3. Small hiatal hernia. 4. Cardiomegaly. Medications Administered ER medications given: Decadron 6 mg IV Ondansetron 4 mg IV ECG Indication: SOB/dyspnea Rate (beats per minute): 74 Rhythm: normal sinus Findings: no acute ischemic change Comparison ECG Date: from (February 24, 2002) Change: no significant change Code Status & VTE Plan Code Status Full as discussed with the patient VTE Prophylaxis Plan VTE Prophylaxis will be ordered: Yes PG Care Time/CCT Total # of Minutes Spent Total Time Spent with Patient: Total time spent is greater than 50% in coordination of care (as documented) at patient's floor/unit and/or counseling patient: Coding Level of Care Code 54548 Initial Inpt Care Lvl 3 Diagnoses Sepsis A41.9 Sepsis acute organ dysfunction status: unspecified Sepsis type: sepsis due to unspecified organism Pneumonia due to COVID-19 virus U07.1; J12.89 Acute respiratory failure with hypoxia J96.01 Prediabetes R73.03 Hyperlipidemia E78.5 GERD (gastroesophageal reflux disease) K21.9 Esophageal dysmotility K22.4 Hypothyroidism E03.9 Anxiety F41.9 DVT prophylaxis Z29.9 (1) Sepsis Sepsis acute organ dysfunction status: unspecified Sepsis type: sepsis due to unspecified organism Qualified Code(s): A41.9 - Sepsis, unspecified organism
[2020-10-15] MEDS ORDERED: AZITHROMYCIN 500 MG in DEXTROSE 5% 250 ML IV STA (14:30)
[2020-10-15] MEDS ORDERED: CEFEPIME 2,000 MG in SYRINGE 0 ML IV STA (14:30)
[2020-10-15 14:53] LABS: D Dimer 1140 ug/L FEU (0-500)
[2020-10-15 15:16] LABS: C Reactive Protein 17.3 mg/dl (0-0.29); Ferritin 1197.4 ng/ml (8-388)
[2020-10-15] MEDS ORDERED: CEFEPIME 2,000 MG/20 ML VIAL ONE (15:27)
[2020-10-15] MEDS ORDERED: AZTREONAM CONSULT ACTIVE PRN (15:29)
[2020-10-15] MEDS ORDERED: levoFLOXacin/D5W 750 MG/150 ML BAG IV SCH (15:45)
[2020-10-15] MEDS ORDERED: AZTREONAM 2,000 MG in DEXTROSE 5% 100 ML IV ONE (15:45)
--- NOTE | 2020-10-15 16:01 | Emergency Department Note ---
History of Present Illness General Chief complaint: Shortness of Breath/Dyspnea Stated complaint: ILLNESS, DIARRHEA, NAUSEA, COVID + Time Seen by Provider: 10/15/20 11:17 History of Present Illness Provider complaint: Shortness of breath fall Covid positive Onset (ago): day(s) 1 Maximum Pain Intensity: 0 Associated symptoms: + cough, + shortness of breath and + weakness; no confusion, no chest pain and no headaches 69-year-old female presents emergency department for shortness of breath and fall. Patient was tested for COVID-19 on October 05, 2020 and tested positive. Patient reports she has been feeling increasingly weak and short of breath. She reports she has been coughing a lot. Patient reports she fell yesterday and was unable to get up. Family called to check up on her and found her lying on the ground and EMS was called. Patient also reports diarrhea. No melena or hematochezia. No hemoptysis. No hematuria or dysuria. Home Medications Medication Instructions Recorded Confirmed Type Glucosamine Chondroitin 1 cap PO BID 04/03/19 10/15/20 History aspirin [Aspirin Low Dose] 81 mg PO HS 04/03/19 10/15/20 History biotin 5,000 mcg SUBLINGUAL 1200 04/03/19 10/15/20 History calcium carbonate-vitamin D3 1 tab PO BID 04/03/19 10/15/20 History [Calcium 600 + D(3)] cholecalciferol (vitamin D3) 2,000 unit PO 1200 04/03/19 10/15/20 History [Vitamin D3] multivitamin 1 tab PO 1200 04/03/19 10/15/20 History clonazepam 0.5 mg tablet 0.5 mg PO BID PRN #60 tab 09/17/19 10/15/20 Rx ciclopirox 8 % topical solution 1 appln TOP DAILY #6.6 ml 05/26/20 10/15/20 Rx fluticasone propionate 50 1 spray INTRANASAL HS #16 gm 06/15/20 10/15/20 Rx mcg/actuation nasal spray,suspension levothyroxine 75 mcg tablet 75 mcg PO DAILY #90 tab 07/05/20 10/15/20 Rx rosuvastatin 5 mg tablet 5 mg PO .COMPLEX #36 tab 07/08/20 10/15/20 Rx meloxicam 15 mg tablet 15 mg PO DAILY PRN #30 tab 07/28/20 10/15/20 Rx ondansetron HCl 4 mg tablet 4 mg PO Q8H PRN #30 tab 10/11/20 10/15/20 Rx pantoprazole 40 mg PO DAILYBB 10/15/20 10/15/20 History Allergies Allergy/AdvReac Type Severity Reaction Status Date / Time Penicillins Allergy Severe RESP Verified 07/15/20 09:32 DISTRESS/HIVES Past Med/Surg History Medical History COVID-19 GERD (gastroesophageal reflux disease) History of anesthesia reaction difficulty waking Hyperlipidemia Hypothyroidism Migraine Osteoarthritis Schatzki's ring of distal esophagus Surgical History History of cholecystectomy History of colonoscopy 2004 - - Divertics sigmoid History of dilatation and curettage History of oral surgery permanent bridge placed History of total hysterectomy with bilateral salpingo-oophorectomy (BSO) 12/09/2013 History of vaginal surgery bartholin cyst removal History of wisdom tooth extraction Hx of laparoscopy diagnostic Family History Sister Family history of diabetes mellitus Bleeding disorder Grandfather (Paternal) Family hx of colon cancer Father Cardiac disorder Cancer Sister Hypertension Clotting disorder Sinusitis Mother Hypertension Stroke Cancer Sinusitis Other No family history of adverse response to anesthesia Social History Smoking Status: Unknown if ever smoked Second Hand Exposure: No (father smoked); Hx Alcohol Use: Yes Alcohol type: beer, wine and hard liquor Alcohol Intake Frequency Comment: Social Drinker Hx Substance Use: No Preferred Language: Turkmen Communication Ability: Effective Defense Analyst Required: No Beliefs That Will Affect Care: None marital status: Current Living Situation: Significant Other Feels Safe at Home: Yes Assistive Devices: Glasses Review of Systems A total of 10 systems reviewed and were otherwise negative Physical Exam Vital Signs Vital Signs - 24 hr 10/15/20 10:59 10/15/20 11:00 10/15/20 11:14 Temperature 37.1 C Temperature Source Oral Pulse Rate 110 H 88 83 Pulse Rate from SpO2 Sensor 104 H 83 Pulse Rhythm Regular Pulse Strength Normal Respiratory Rate 33 H 33 H 32 H Respiratory Effort / Characteristics Short of Breath Respiratory Depth Shallow Respiratory Pattern Tachypnea Blood Pressure 134/78 134/78 128/74 Blood Pressure Mean 83 96 102 Blood Pressure Position Lying Pulse Oximetry 84 L 70 L 90 Oxygen Delivery Method Room Air Non-rebreather Oxygen Flow Rate 0 Fraction of Inspired Oxygen Sepsis Recent Fever Within 48 Hours No Sepsis New/Unexplained Change in Mental Status N/A Sepsis Action Taken by Nursing No Action Required Oxygen Flow Rate - Titration 15 Pulse Oximetry Post Tiitration 90 10/15/20 11:15 10/15/20 11:30 10/15/20 11:45 Temperature Temperature Source Pulse Rate 83 91 H 89 Pulse Rate from SpO2 Sensor 80 94 H 87 Pulse Rhythm Pulse Strength Respiratory Rate 28 H 35 H 24 Respiratory Effort / Characteristics Respiratory Depth Respiratory Pattern Blood Pressure 128/67 121/85 121/78 Blood Pressure Mean 90 94 92 Blood Pressure Position Pulse Oximetry 90 87 L 88 L Oxygen Delivery Method Oxygen Flow Rate Fraction of Inspired Oxygen Sepsis Recent Fever Within 48 Hours Sepsis New/Unexplained Change in Mental Status Sepsis Action Taken by Nursing Oxygen Flow Rate - Titration Pulse Oximetry Post Tiitration 10/15/20 11:46 10/15/20 12:00 10/15/20 12:15 Temperature Temperature Source Pulse Rate 96 H 81 Pulse Rate from SpO2 Sensor 97 H 81 Pulse Rhythm Pulse Strength Respiratory Rate 20 21 26 H Respiratory Effort / Characteristics Non-Labored Spontaneous Respiratory Depth Respiratory Pattern Blood Pressure 113/76 135/94 Blood Pressure Mean 92 101 Blood Pressure Position Pulse Oximetry 93 95 94 Oxygen Delivery Method High Flow Nasal Cannula Oxygen Flow Rate 40 Fraction of Inspired Oxygen 100 Sepsis Recent Fever Within 48 Hours Sepsis New/Unexplained Change in Mental Status Sepsis Action Taken by Nursing Oxygen Flow Rate - Titration Pulse Oximetry Post Tiitration 10/15/20 12:30 10/15/20 12:45 10/15/20 13:00 Temperature Temperature Source Pulse Rate 77 78 79 Pulse Rate from SpO2 Sensor 78 75 76 Pulse Rhythm Pulse Strength Respiratory Rate 25 H 24 27 H Respiratory Effort / Characteristics Respiratory Depth Respiratory Pattern Blood Pressure 129/88 124/79 125/71 Blood Pressure Mean 103 107 89 Blood Pressure Position Pulse Oximetry 95 97 75 L Oxygen Delivery Method Oxygen Flow Rate Fraction of Inspired Oxygen Sepsis Recent Fever Within 48 Hours Sepsis New/Unexplained Change in Mental Status Sepsis Action Taken by Nursing Oxygen Flow Rate - Titration Pulse Oximetry Post Tiitration 10/15/20 13:30 10/15/20 13:33 10/15/20 13:47 Temperature Temperature Source Pulse Rate 90 77 72 Pulse Rate from SpO2 Sensor 90 78 Pulse Rhythm Pulse Strength Respiratory Rate 22 23 32 H Respiratory Effort / Characteristics Respiratory Depth Respiratory Pattern Blood Pressure 150/95 H 139/99 138/94 Blood Pressure Mean 107 106 114 Blood Pressure Position Pulse Oximetry 96 98 Oxygen Delivery Method Oxygen Flow Rate Fraction of Inspired Oxygen Sepsis Recent Fever Within 48 Hours Sepsis New/Unexplained Change in Mental Status Sepsis Action Taken by Nursing Oxygen Flow Rate - Titration Pulse Oximetry Post Tiitration 10/15/20 14:00 10/15/20 14:15 10/15/20 14:30 Temperature Temperature Source Pulse Rate 73 77 91 H Pulse Rate from SpO2 Sensor Pulse Rhythm Pulse Strength Respiratory Rate 26 H 22 Respiratory Effort / Characteristics Respiratory Depth Respiratory Pattern Blood Pressure 142/86 H 146/102 H 146/85 H Blood Pressure Mean 101 113 113 Blood Pressure Position Pulse Oximetry Oxygen Delivery Method Oxygen Flow Rate Fraction of Inspired Oxygen Sepsis Recent Fever Within 48 Hours Sepsis New/Unexplained Change in Mental Status Sepsis Action Taken by Nursing Oxygen Flow Rate - Titration Pulse Oximetry Post Tiitration 10/15/20 14:45 10/15/20 15:01 10/15/20 15:15 Temperature Temperature Source Pulse Rate Pulse Rate from SpO2 Sensor 85 77 Pulse Rhythm Pulse Strength Respiratory Rate Respiratory Effort / Characteristics Respiratory Depth Respiratory Pattern Blood Pressure 122/88 166/116 H 174/103 H Blood Pressure Mean 94 125 135 Blood Pressure Position Pulse Oximetry 89 L 90 Oxygen Delivery Method Oxygen Flow Rate Fraction of Inspired Oxygen Sepsis Recent Fever Within 48 Hours Sepsis New/Unexplained Change in Mental Status Sepsis Action Taken by Nursing Oxygen Flow Rate - Titration Pulse Oximetry Post Tiitration Physical Exam GENERAL: She is oriented to person, place, and time. She appears well-developed and well-nourished. She does not appear distressed. HENT: Exam performed. -Head: Normocephalic and atraumatic. -Right Ear: External ear normal. No mastoid tenderness. -Left Ear: External ear normal. No mastoid tenderness. -Mouth/Throat: The oropharynx is clear and moist. No trismus in the jaw. No dental abscesses or uvula swelling. No oropharyngeal exudate or tonsillar abscesses. EYES: Conjunctivae and EOM are normal. Pupils are equal, round, and reactive to light. Right eye exhibits no discharge. Left eye exhibits no discharge. No scleral icterus. NECK: Normal range of motion. Neck supple. No JVD present. No spinous process tenderness present. No carotid bruit present. No rigidity. No tracheal deviation and normal range of motion present. No Brudzinski's sign and no Kernig's sign noted. CV: Normal rate, regular rhythm, normal heart sounds and intact distal pulses. There is no peripheral edema. Palpable radial pulses bue. PULM/CHEST: Rhonchi bilaterally. ABD: The abdomen is soft. Bowel sounds are normal. She has no distension. No mass is present. There is no tenderness. There is no rebound, no guarding, no Goyal's sign and no tenderness at McBurney's point. Rovsig negative MUSC/SKEL: Normal range of motion. There is no peripheral edema, tenderness or deformity. LYMPH: No cervical adenopathy. NEURO: She is alert and oriented to person, place, and time. She has normal strength. No cranial nerve deficit or sensory deficit. Coordination and gait normal. GCS eye subscore is 4. GCS verbal subscore is 5. GCS motor subscore is 6. Cerebellar tests wnl. SKIN: Skin is warm and dry. She is not diaphoretic. PSYCH: She has a normal mood and affect. Behavior is normal. Judgment and thought content normal. Course Course 1117: The patient was evaluated in room B8. A complete history and physical exam was performed. Patient was seen in full airborne precautions. Patient was seen in N95's, gloves, gowns, face shield by myself and staff. Patient was started on supervisor dials and hooked up to continuous pulse oximetr y. Patient's pulse oximeter he on room air was in the low 80s and high 70s. Patient was started on nonrebreather mask which only improved her oxygen saturation to 88 to 89%. Patient will be started on high flow nasal cannula. Decadron 6 mg IV push ordered for the patient. Cardiac monitoring: An order was placed for continuous cardiac monitoring. The monitor shows a rate of 70 with sinus rhythm 1336: Vital signs stable. Patient's oxygen saturation stable on high flow nasal cannula. Imaging shows no acute traumatic injury. No PE on CTA of the chest. Extensive groundglass opacities throughout the lungs and bilateral lower lobe consolidation. Lactic acid 2.2. Given the patient's hypoxia and lactic acidemia, patient will be admitted to the [facility]. Administered Medications Sodium Chloride (Nss 1000ml) 1,000 mls @ 125 mls/hr IV .Q8H HARISH Stop: 11/14/20 11:29 Last Admin: 10/15/20 11:30 Dose: 125 mls/hr Documented by: [id number] Levofloxacin/Dextrose (Levaquin/D5w) 750 mg in 150 mls @ 100 mls/hr IV 1545 HARISH Stop: 10/15/20 17:14 Last Admin: 10/15/20 15:39 Dose: 100 mls/hr Documented by: [id number] Aztreonam 2,000 mg/ Dextrose 110 mls @ 110 mls/hr IV 1545 ONE Stop: 10/15/20 16:44 Last Admin: 10/15/20 16:15 Dose: 110 mls/hr Documented by: [id number] Discontinued Medications Cefepime HCl (Cefepime 2,000 Mg/20 Ml Vial) Confirm Administered Dose 2,000 mg .ROUTE .STK-MED ONE Stop: 10/15/20 15:28 Last Admin: 10/15/20 15:29 Dose: Not Given Documented by: [id number] Dexamethasone (Dexamethasone Sod Inj 10 Mg/Ml Vial) 6 mg IV NOW ONE Stop: 10/15/20 11:24 Last Admin: 10/15/20 11:25 Dose: 6 mg Documented by: [id number] Ioversol (Optiray 320 125ml) 119 ml IV ONCE ONE Stop: 10/15/20 13:03 Last Admin: 10/15/20 13:03 Dose: 119 ml Documented by: [id number] Ondansetron HCl (Ondansetron Inj 2 Mg/Ml 2 Ml Vial) 4 mg IV NOW STA Stop: 10/15/20 13:46 Last Admin: 10/15/20 14:16 Dose: 4 mg Documented by: [id number] Critical Care Time Critical Care Time: Yes Total Critical Care Time: 68 I have personally spent greater than 68 minutes of critical care time in the direct management of this patient. This includes bedside care, interpretation of diagnostic studies, and testing, discussion with consultants, patient, and family members, and other required patient management activities. This 68 minutes is in excess of all separately billable procedures. Medical Decision Making Laboratory Data Result diagrams: 10/15/20 11:41 10/15/20 11:41 Lab Results 10/15/20 10/15/20 10/15/20 Range/Units 11:40 11:41 11:41 WBC 11.65 H (4.8-10.8) K/uL RBC 4.80 (4.2-5.4) M/uL Hgb 15.8 (12.0-16.0) g/dL POC Hgb 15.6 (12.0-16.0) g/dl Hct 45.8 (37-47) % POC Hct 46 (37-47) % MCV 95.4 (80-100) fL MCH 32.9 (25-34) pg MCHC 34.5 (32-36) g/dL RDW Std Deviation 47.5 H (36.4-46.3) fL RDW Coeff of Mary 13.5 (11.5-14.5) % Plt Count 299 (130-400) K/uL MPV 10.7 H (7.4-10.4) fL Immature Gran % (Auto) 1.1 % Neut % (Auto) 89.1 % Lymph % (Auto) 4.8 % [place] % (Auto) 4.9 % Eos % (Auto) 0.0 % Baso % (Auto) 0.1 % Neut # (Auto) 10.38 H (1.4-6.5) K/uL Lymph # (Auto) 0.56 L (1.2-3.4) K/uL [place] # (Auto) 0.57 (0.11-0.59) K/uL Eos # (Auto) 0.00 (0-0.5) K/uL Baso # (Auto) 0.01 (0-0.2) K/uL Immature Gran # (Auto) 0.13 H (0.00-0.02) K/uL Absolute Nucleated RBC 0.03 H (0-0) K/uL Nucleated RBC % (auto) 0.2 % PT 11.2 (9.0-12.0) Seconds INR 1.1 (0.9-1.1) APTT 24.2 (21.0-31.0) Seconds PTT Ratio 0.9 D-Dimer (0-500) ug/L FEU VBG pH (7.36-7.41) VBG pCO2 (38-50) mmHg VBG pO2 mmHg VBG HCO3 mmol/L VBG O2 Saturation % VBG Base Excess mEq/L Barometric Pressure mm/Hg POC Sodium 138 (135-144) mmol/L Sodium (136-145) mmol/L POC Potassium 3.5 (3.3-5.0) mmol/L Potassium (3.5-5.1) mmol/L POC Chloride 100 L (101-112) mmol/L Chloride (98-107) mmol/L Carbon Dioxide (21-32) mmol/L POC Total CO2 28 (24-31) mmol/L Anion Gap (3-11) POC Anion Gap 14.0 L (16-25) mmol/L POC BUN 30 H (7-18) mg/dl BUN (7-18) mg/dl Creatinine (0.6-1.2) mg/dl POC Creatinine 0.9 (0.6-1.3) mg/dl Est Cr Clr Drug Dosing ml/min Est GFR ( Amer) Est GFR (Non-Af Amer) BUN/Creatinine Ratio (10-20) Glucose (70-99) mg/dl POC Glucose (other) 131 H (70-99) mg/dl Lactate (0.4-2.0) mmol/L Calcium (8.5-10.1) mg/dl POC Ioniz Calcium Lynn 1.04 L (1.12-1.32) mmol/l Magnesium (1.8-2.4) mg/dl Ferritin (8-388) ng/ml Total Bilirubin (0.2-1) mg/dl AST (15-37) U/L ALT (12-78) U/L Alkaline Phosphatase (45-117) U/L Lactate Dehydrogenase (84-246) U/L Total Creatine Kinase (26-192) U/L Troponin I (0-0.045) ng/ml C-Reactive Protein (0-0.29) mg/dl Total Protein (6.4-8.2) gm/dl Albumin (3.4-5.0) gm/dl Globulin (2.5-4.0) gm/dl Albumin/Globulin Ratio (0.9-2) Procalcitonin (0-0.5) ng/ml Urine Color Urine Appearance (Clear) Urine pH (4.5-7.5) Ur Specific Waggoner (1.000-1.030) Urine Protein (Negative) Urine Glucose (UA) (Negative) Urine Ketones (Negative) Urine Blood (Negative) Urine Nitrite (Negative) Urine Bilirubin (Negative) Urine Urobilinogen (Negative) Ur Leukocyte Esterase (Negative) Urine WBC (Auto) (0-5) /hpf Urine RBC (Auto) (0-4) /hpf U Hyaline Cast (Auto) (0-5) /lpf U Epithel Cells (Auto) (0-5) /lpf Urine Bacteria (Auto) (Negative) Urine Yeast Blood Type Antibody Screen 10/15/20 10/15/20 10/15/20 Range/Units 11:41 11:41 11:41 WBC (4.8-10.8) K/uL RBC (4.2-5.4) M/uL Hgb (12.0-16.0) g/dL POC Hgb (12.0-16.0) g/dl Hct (37-47) % POC Hct (37-47) % MCV (80-100) fL MCH (25-34) pg MCHC (32-36) g/dL RDW Std Deviation (36.4-46.3) fL RDW Coeff of Mary (11.5-14.5) % Plt Count (130-400) K/uL MPV (7.4-10.4) fL Immature Gran % (Auto) % Neut % (Auto) % Lymph % (Auto) % [place] % (Auto) % Eos % (Auto) % Baso % (Auto) % Neut # (Auto) (1.4-6.5) K/uL Lymph # (Auto) (1.2-3.4) K/uL [place] # (Auto) (0.11-0.59) K/uL Eos # (Auto) (0-0.5) K/uL Baso # (Auto) (0-0.2) K/uL Immature Gran # (Auto) (0.00-0.02) K/uL Absolute Nucleated RBC (0-0) K/uL Nucleated RBC % (auto) % PT (9.0-12.0) Seconds INR (0.9-1.1) APTT (21.0-31.0) Seconds PTT Ratio D-Dimer (0-500) ug/L FEU VBG pH (7.36-7.41) VBG pCO2 (38-50) mmHg VBG pO2 mmHg VBG HCO3 mmol/L VBG O2 Saturation % VBG Base Excess mEq/L Barometric Pressure mm/Hg POC Sodium (135-144) mmol/L Sodium 136 (136-145) mmol/L POC Potassium (3.3-5.0) mmol/L Potassium 3.5 (3.5-5.1) mmol/L POC Chloride (101-112) mmol/L Chloride 101 (98-107) mmol/L Carbon Dioxide 28 (21-32) mmol/L POC Total CO2 (24-31) mmol/L Anion Gap 7.0 (3-11) POC Anion Gap (16-25) mmol/L POC BUN (7-18) mg/dl BUN 29 H (7-18) mg/dl Creatinine 0.92 (0.6-1.2) mg/dl POC Creatinine (0.6-1.3) mg/dl Est Cr Clr Drug Dosing 67.5 ml/min Est GFR ( Amer) 74.2 Est GFR (Non-Af Amer) 64.0 BUN/Creatinine Ratio 31.2 H (10-20) Glucose 129 H (70-99) mg/dl POC Glucose (other) (70-99) mg/dl Lactate 2.2 H* (0.4-2.0) mmol/L Calcium 9.1 (8.5-10.1) mg/dl POC Ioniz Calcium Lynn (1.12-1.32) mmol/l Magnesium 2.8 H (1.8-2.4) mg/dl Ferritin (8-388) ng/ml Total Bilirubin 0.7 (0.2-1) mg/dl AST 73 H (15-37) U/L ALT 60 (12-78) U/L Alkaline Phosphatase 78 (45-117) U/L Lactate Dehydrogenase (84-246) U/L Total Creatine Kinase 182 (26-192) U/L Troponin I < 0.015 (0-0.045) ng/ml C-Reactive Protein (0-0.29) mg/dl Total Protein 7.8 (6.4-8.2) gm/dl Albumin 2.8 L (3.4-5.0) gm/dl Globulin 5.0 H (2.5-4.0) gm/dl Albumin/Globulin Ratio 0.6 L (0.9-2) Procalcitonin 0.14 (0-0.5) ng/ml Urine Color Urine Appearance (Clear) Urine pH (4.5-7.5) Ur Specific W[place]oner (1.000-1.030) Urine Protein (Negative) Urine Glucose (UA) (Negative) Urine Ketones (Negative) Urine Blood (Negative) Urine Nitrite (Negative) Urine Bilirubin (Negative) Urine Urobilinogen (Negative) Ur Leukocyte Esterase (Negative) Urine WBC (Auto) (0-5) /hpf Urine RBC (Auto) (0-4) /hpf U Hyaline Cast (Auto) (0-5) /lpf U Epithel Cells (Auto) (0-5) /lpf Urine Bacteria (Auto) (Negative) Urine Yeast Blood Type Antibody Screen 10/15/20 10/15/20 10/15/20 Range/Units 11:41 11:41 11:41 WBC (4.8-10.8) K/uL RBC (4.2-5.4) M/uL Hgb (12.0-16.0) g/dL POC Hgb (12.0-16.0) g/dl Hct (37-47) % POC Hct (37-47) % MCV (80-100) fL MCH (25-34) pg MCHC (32-36) g/dL RDW Std Deviation (36.4-46.3) fL RDW Coeff of Mary (11.5-14.5) % Plt Count (130-400) K/uL MPV (7.4-10.4) fL Immature Gran % (Auto) % Neut % (Auto) % Lymph % (Auto) % [place] % (Auto) % Eos % (Auto) % Baso % (Auto) % Neut # (Auto) (1.4-6.5) K/uL Lymph # (Auto) (1.2-3.4) K/uL [place] # (Auto) (0.11-0.59) K/uL Eos # (Auto) (0-0.5) K/uL Baso # (Auto) (0-0.2) K/uL Immature Gran # (Auto) (0.00-0.02) K/uL Absolute Nucleated RBC (0-0) K/uL Nucleated RBC % (auto) % PT (9.0-12.0) Seconds INR (0.9-1.1) APTT (21.0-31.0) Seconds PTT Ratio D-Dimer 1140 H* (0-500) ug/L FEU VBG pH 7.43 H (7.36-7.41) VBG pCO2 44 (38-50) mmHg VBG pO2 34 mmHg VBG HCO3 29 mmol/L VBG O2 Saturation 63.5 % VBG Base Excess 3.9 mEq/L Barometric Pressure 736.1 mm/Hg POC Sodium (135-144) mmol/L Sodium (136-145) mmol/L POC Potassium (3.3-5.0) mmol/L Potassium (3.5-5.1) mmol/L POC Chloride (101-112) mmol/L Chloride (98-107) mmol/L Carbon Dioxide (21-32) mmol/L POC Total CO2 (24-31) mmol/L Anion Gap (3-11) POC Anion Gap (16-25) mmol/L POC BUN (7-18) mg/dl BUN (7-18) mg/dl Creatinine (0.6-1.2) mg/dl POC Creatinine (0.6-1.3) mg/dl Est Cr Clr Drug Dosing ml/min Est GFR ( Amer) Est GFR (Non-Af Amer) BUN/Creatinine Ratio (10-20) Glucose (70-99) mg/dl POC Glucose (other) (70-99) mg/dl Lactate (0.4-2.0) mmol/L Calcium (8.5-10.1) mg/dl POC Ioniz Calcium Lynn (1.12-1.32) mmol/l Magnesium (1.8-2.4) mg/dl Ferritin 1197.4 H (8-388) ng/ml Total Bilirubin (0.2-1) mg/dl AST (15-37) U/L ALT (12-78) U/L Alkaline Phosphatase (45-117) U/L Lactate Dehydrogenase (84-246) U/L Total Creatine Kinase (26-192) U/L Troponin I (0-0.045) ng/ml C-Reactive Protein 17.30 H (0-0.29) mg/dl Total Protein (6.4-8.2) gm/dl Albumin (3.4-5.0) gm/dl Globulin (2.5-4.0) gm/dl Albumin/Globulin Ratio (0.9-2) Procalcitonin (0-0.5) ng/ml Urine Color Urine Appearance (Clear) Urine pH (4.5-7.5) Ur Specific [place] (1.000-1.030) Urine Protein (Negative) Urine Glucose (UA) (Negative) Urine Ketones (Negative) Urine Blood (Negative) Urine Nitrite (Negative) Urine Bilirubin (Negative) Urine Urobilinogen (Negative) Ur Leukocyte Esterase (Negative) Urine WBC (Auto) (0-5) /hpf Urine RBC (Auto) (0-4) /hpf U Hyaline Cast (Auto) (0-5) /lpf U Epithel Cells (Auto) (0-5) /lpf Urine Bacteria (Auto) (Negative) Urine Yeast Blood Type Antibody Screen 10/15/20 10/15/20 10/15/20 Range/Units 14:10 15:04 15:04 WBC (4.8-10.8) K/uL RBC (4.2-5.4) M/uL Hgb (12.0-16.0) g/dL POC Hgb (12.0-16.0) g/dl Hct (37-47) % POC Hct (37-47) % MCV (80-100) fL MCH (25-34) pg MCHC (32-36) g/dL RDW Std Deviation (36.4-46.3) fL RDW Coeff of Mary (11.5-14.5) % Plt Count (130-400) K/uL MPV (7.4-10.4) fL Immature Gran % (Auto) % Neut % (Auto) % Lymph % (Auto) % [place] % (Auto) % Eos % (Auto) % Baso % (Auto) % Neut # (Auto) (1.4-6.5) K/uL Lymph # (Auto) (1.2-3.4) K/uL [place] # (Auto) (0.11-0.59) K/uL Eos # (Auto) (0-0.5) K/uL Baso # (Auto) (0-0.2) K/uL Immature Gran # (Auto) (0.00-0.02) K/uL Absolute Nucleated RBC (0-0) K/uL Nucleated RBC % (auto) % PT (9.0-12.0) Seconds INR (0.9-1.1) APTT (21.0-31.0) Seconds PTT Ratio D-Dimer (0-500) ug/L FEU VBG pH (7.36-7.41) VBG pCO2 (38-50) mmHg VBG pO2 mmHg VBG HCO3 mmol/L VBG O2 Saturation % VBG Base Excess mEq/L Barometric Pressure mm/Hg POC Sodium (135-144) mmol/L Sodium (136-145) mmol/L POC Potassium (3.3-5.0) mmol/L Potassium (3.5-5.1) mmol/L POC Chloride (101-112) mmol/L Chloride (98-107) mmol/L Carbon Dioxide (21-32) mmol/L POC Total CO2 (24-31) mmol/L Anion Gap (3-11) POC Anion Gap (16-25) mmol/L POC BUN (7-18) mg/dl BUN (7-18) mg/dl Creatinine (0.6-1.2) mg/dl POC Creatinine (0.6-1.3) mg/dl Est Cr Clr Drug Dosing ml/min Est GFR ( Amer) Est GFR (Non-Af Amer) BUN/Creatinine Ratio (10-20) Glucose (70-99) mg/dl POC Glucose (other) (70-99) mg/dl Lactate 1.5 (0.4-2.0) mmol/L Calcium (8.5-10.1) mg/dl POC Ioniz Calcium Lynn (1.12-1.32) mmol/l Magnesium (1.8-2.4) mg/dl Ferritin (8-388) ng/ml Total Bilirubin (0.2-1) mg/dl AST (15-37) U/L ALT (12-78) U/L Alkaline Phosphatase (45-117) U/L Lactate Dehydrogenase 585 H (84-246) U/L Total Creatine Kinase (26-192) U/L Troponin I (0-0.045) ng/ml C-Reactive Protein (0-0.29) mg/dl Total Protein (6.4-8.2) gm/dl Albumin (3.4-5.0) gm/dl Globulin (2.5-4.0) gm/dl Albumin/Globulin Ratio (0.9-2) Procalcitonin (0-0.5) ng/ml Urine Color Urine Appearance (Clear) Urine pH (4.5-7.5) Ur Specific [place] (1.000-1.030) Urine Protein (Negative) Urine Glucose (UA) (Negative) Urine Ketones (Negative) Urine Blood (Negative) Urine Nitrite (Negative) Urine Bilirubin (Negative) Urine Urobilinogen (Negative) Ur Leukocyte Esterase (Negative) Urine WBC (Auto) (0-5) /hpf Urine RBC (Auto) (0-4) /hpf U Hyaline Cast (Auto) (0-5) /lpf U Epithel Cells (Auto) (0-5) /lpf Urine Bacteria (Auto) (Negative) Urine Yeast Blood Type O Positive Antibody Screen NEGATIVE 10/15/20 Range/Units 15:30 WBC (4.8-10.8) K/uL RBC (4.2-5.4) M/uL Hgb (12.0-16.0) g/dL POC Hgb (12.0-16.0) g/dl Hct (37-47) % POC Hct (37-47) % MCV (80-100) fL MCH (25-34) pg MCHC (32-36) g/dL RDW Std Deviation (36.4-46.3) fL RDW Coeff of Mary (11.5-14.5) % Plt Count (130-400) K/uL MPV (7.4-10.4) fL Immature Gran % (Auto) % Neut % (Auto) % Lymph % (Auto) % [place] % (Auto) % Eos % (Auto) % Baso % (Auto) % Neut # (Auto) (1.4-6.5) K/uL Lymph # (Auto) (1.2-3.4) K/uL [place] # (Auto) (0.11-0.59) K/uL Eos # (Auto) (0-0.5) K/uL Baso # (Auto) (0-0.2) K/uL Immature Gran # (Auto) (0.00-0.02) K/uL Absolute Nucleated RBC (0-0) K/uL Nucleated RBC % (auto) % PT (9.0-12.0) Seconds INR (0.9-1.1) APTT (21.0-31.0) Seconds PTT Ratio D-Dimer (0-500) ug/L FEU VBG pH (7.36-7.41) VBG pCO2 (38-50) mmHg VBG pO2 mmHg VBG HCO3 mmol/L VBG O2 Saturation % VBG Base Excess mEq/L Barometric Pressure mm/Hg POC Sodium (135-144) mmol/L Sodium (136-145) mmol/L POC Potassium (3.3-5.0) mmol/L Potassium (3.5-5.1) mmol/L POC Chloride (101-112) mmol/L Chloride (98-107) mmol/L Carbon Dioxide (21-32) mmol/L POC Total CO2 (24-31) mmol/L Anion Gap (3-11) POC Anion Gap (16-25) mmol/L POC BUN (7-18) mg/dl BUN (7-18) mg/dl Creatinine (0.6-1.2) mg/dl POC Creatinine (0.6-1.3) mg/dl Est Cr Clr Drug Dosing ml/min Est GFR ( Amer) Est GFR (Non-Af Amer) BUN/Creatinine Ratio (10-20) Glucose (70-99) mg/dl POC Glucose (other) (70-99) mg/dl Lactate (0.4-2.0) mmol/L Calcium (8.5-10.1) mg/dl POC Ioniz Calcium Lynn (1.12-1.32) mmol/l Magnesium (1.8-2.4) mg/dl Ferritin (8-388) ng/ml Total Bilirubin (0.2-1) mg/dl AST (15-37) U/L ALT (12-78) U/L Alkaline Phosphatase (45-117) U/L Lactate Dehydrogenase (84-246) U/L Total Creatine Kinase (26-192) U/L Troponin I (0-0.045) ng/ml C-Reactive Protein (0-0.29) mg/dl Total Protein (6.4-8.2) gm/dl Albumin (3.4-5.0) gm/dl Globulin (2.5-4.0) gm/dl Albumin/Globulin Ratio (0.9-2) Procalcitonin (0-0.5) ng/ml Urine Color Yellow Urine Appearance Clear (Clear) Urine pH 6.0 (4.5-7.5) Ur Specific W[place]oner > 1.045 H (1.000-1.030) Urine Protein 1+ H (Negative) Urine Glucose (UA) Negative (Negative) Urine Ketones 1+ H (Negative) Urine Blood 1+ H (Negative) Urine Nitrite Negative (Negative) Urine Bilirubin Negative (Negative) Urine Urobilinogen Negative (Negative) Ur Leukocyte Esterase 2+ H (Negative) Urine WBC (Auto) >30 H (0-5) /hpf Urine RBC (Auto) 0-4 (0-4) /hpf U Hyaline Cast (Auto) 5-10 H (0-5) /lpf U Epithel Cells (Auto) >30 H (0-5) /lpf Urine Bacteria (Auto) 1+ H (Negative) Urine Yeast Not Reportable Blood Type Antibody Screen Imaging Data Radiologist's Impression: CT head/brain wo con CLINICAL HISTORY: 69 years-old Female with fall. Acute head injury status post fall. TECHNIQUE: Multiple axial CT images of the head were obtained without contrast. A dose lowering technique was utilized adhering to the principles of ALARA. CT DOSE: 776.86 mGycm COMPARISON: Brain MRI 01/29/2019 FINDINGS: No acute intracranial hemorrhage, midline shift, intracranial mass, hydrocephalus, territorial ischemia or abnormal extra-axial collection. Patchy white matter hypodensities suggest chronic microvascular ischemic disease. The calvarium is intact. The paranasal sinuses, mastoid air cells, and middle ear cavities are clear. IMPRESSION: No acute intracranial abnormality or calvarial fracture. ACT 112: Negative or not required by law. The above report was generated using voice recognition software. It may contain grammatical, syntax or spelling errors. Electronically signed by: Brenton Avilez M.D. 10/15/2020 1:17 PM Dictated: 10/15/201314Transcribed: 10/15/201314 CT ANGIOGRAPHY OF THE CHEST, PULMONARY EMBOLUS PROTOCOL CLINICAL HISTORY: Shortness of breath and cough. Covid. COMPARISON STUDY: Chest radiograph performed earlier today. TECHNIQUE: Following IV administration of 119 mL of [id number]-320, helical axial images of the chest were obtained utilizing the pulmonary embolus protocol. Maximal intensity projections and sagittal and coronal reformats were viewed on an independent 3D workstation. IV contrast was administered without complication. Automated exposure control was utilized for the study. A dose lowering technique was utilized adhering to the principles of ALARA. CT DOSE: 652.55 mGycm FINDINGS: No pulmonary emboli are identified although the segmental and subsegmental pulmonary arteries are suboptimally assessed given respiratory motion. Prominent mediastinal and bilateral hilar lymph nodes are likely reactive. Mild cardiomegaly is noted. There is no pericardial effusion. There is no pneumothorax or pleural effusion. Extensive groundglass opacities are noted. There is also moderate consolidation within the bilateral lower lobes. No cavitation is present. Central airways are patent. No acute rib or thoracic spine fracture is noted although sensitivity for detection of fractures is diminished given motion artifact. A small hiatal hernia is present. Gallbladder is surgically absent. Several hepatic cysts are incidentally noted. IMPRESSION: 1. No pulmonary emboli identified although segmental and subsegmental pulmonary arteries suboptimally assessed due to respiratory motion. 2. Extensive groundglass opacities throughout the lungs with bilateral lower lobe consolidation. These findings represent an infectious process. 3. Small hiatal hernia. 4. Cardiomegaly. ACT 112: Negative or not required by law. Electronically signed by: Israel Gar M.D. 10/15/2020 1:32 PM Dictated: 10/15/20 1324Transcribed: 10/15/[address] cervical spine wo con CT DOSE: 466.95 mGycm CLINICAL HISTORY: 69 years-old Female with fall. Acute head and neck injury status post fall COMPARISON: Head CT of same day TECHNIQUE: Multiple axial CT images of the cervical spine were obtained without contrast. A dose lowering technique was utilized adhering to the principles of ALARA. FINDINGS: Multilevel disc space narrowing, moderate at C5-C6. Mostly mild multilevel spondylitic spurring with mild to moderate facet arthrosis. No acute fracture or subluxation. Evaluation of the central canal and neuroforamina is better assessed by MRI. Bilateral neuroforaminal narrowing appears to be at least mild to moderate C5-C6. Groundglass opacities with mosaic attenuation are noted involving the imaged lung apices. No pneumothorax. Suspected plaque of the carotid bulbs. IMPRESSION: 1. No acute fracture or subluxation. 2. Biapical pulmonary opacities are better characterized in detail on the CTA chest study of same day. ACT 112: Negative or not required by law. The above report was generated using voice recognition software. It may contain grammatical, syntax or spelling errors. Electronically signed by: Brenton Avilez M.D. 10/15/2020 1:28 PM Dictated: 10/15/20 1324Transcribed: 10/15/20 1324 XR chest 1V portable HISTORY: 69 years-old Female SEPSIS acute sepsis COMPARISON: CT abdomen 05/23/2007 TECHNIQUE: Portable AP view of the chest. FINDINGS: Cardiac silhouette is upper limits of normal in size. Mild asymmetric right hilar prominence. There is unchanged right hemidiaphragmatic elevation. Pulmonary vascular congestion with radicular opacities. Calcified granuloma of the left upper lung. No pneumothorax, large pleural effusion or lobar airspace consolidation. Degenerative changes of the shoulders and spine with left shoulder rotator cuff calcific tendinosis. Cholecystectomy. IMPRESSION: 1. Pulmonary vascular congestion with bilateral reticular opacities are suggestive of pulmonary edema versus atypical pneumonitis. 2. Asymmetric right hilar prominence may be projectional or reflect underlying adenopathy or lesion. Attention at follow-up recommended. ACT 112: Negative or not required by law. The above report was generated using voice recognition software. It may contain grammatical, syntax or spelling errors. Electronically signed by: Brenton Avilez M.D. 10/15/2020 11:46 AM Dictated: 10/15/20 1143Transcribed: 10/15/20 1143 ECG Data Indication: + SOB/dyspnea Rate (beats per minute): 74 Rhythm: + normal sinus ECG Intervals/blocks: + Normal QRS, + Normal GA and + Normal QT-c ECG ST segments: + Normal ST segments Additional Comments: T wave inversion in lead III only. [facility] Narrative 1117: The patient was evaluated in room B8. A complete history and physical exam was performed. Patient was seen in full airborne precautions. Patient was seen in N95's, gloves, gowns, face shield by myself and staff. Patient was started on supervisor dials and hooked up to continuous pulse oximetry. Patient's pulse oximeter he on room air was in the low 80s and high 70s. Patient was started on nonrebreather mask which only improved her oxygen saturation to 88 to 89%. Patient will be started on high flow nasal cannula. Decadron 6 mg IV push ordered for the patient. Cardiac monitoring: An order was placed for continuous cardiac monitoring. The monitor shows a rate of 70 with sinus rhythm 1336: Vital signs stable. Patient's oxygen saturation stable on high flow nasal cannula. Imaging shows no acute traumatic injury. No PE on CTA of the chest. Extensive groundglass opacities throughout the lungs and bilateral lower lobe consolidation. Lactic acid 2.2. Given the patient's hypoxia and lactic acidemia, patient will be admitted to the [facility]. Impression & Plan Hypoxia, 2019 novel coronavirus–infected pneumonia (NCIP)#8211;infected pneumonia (NCIP), Sepsis Discharge Plan Visit Data Chief Complaint: Shortness of Breath/Dyspnea Stated Complaint: ILLNESS, DIARRHEA, NAUSEA, COVID + ED Provider: Kenyon Younger Discharge Problem: Hypoxia, 2019 novel coronavirus–infected pneumonia (NCIP)#8211;infected pneumonia (NCIP), Sepsis Patient Disposition: Admitted As Inpatient Forms Stand Alone Forms: My [facility] Prescriptions Prescriptions: No Action fluticasone propionate [Flonase Allergy Relief] 50 mcg/actuation spray,suspension 1 spray INTRANASAL HS Qty: 16 RF: 5 levothyroxine 75 mcg tablet 75 mcg PO DAILY Qty: 90 RF: 3 rosuvastatin 5 mg tablet 5 mg PO .COMPLEX Qty: 36 RF: 3 meloxicam 15 mg tablet 15 mg PO DAILY PRN (Reason: Pain) Qty: 30 RF: 5 ondansetron HCl 4 mg tablet 4 mg PO Q8H PRN (Reason: nausea) Qty: 30 RF: 0 clonazepam 0.5 mg tablet 0.5 mg PO BID PRN (Reason: anxiety) Qty: 60 RF: 2 ciclopirox 8 % solution 1 appln TOP DAILY Qty: 6.6 RF: 5 multivitamin Tablet 1 tab PO 1200 RF: 0 aspirin [Aspirin Low Dose] 81 mg Tablet,Delayed Release (Dr/Ec) 81 mg PO HS RF: 0 calcium carbonate-vitamin D3 [Calcium 600 + D(3)] 600 mg(1,500mg) -400 unit Tablet 1 tab PO BID RF: 0 cholecalciferol (vitamin D3) [Vitamin D3] 2,000 unit Tablet 2,000 unit PO 1200 RF: 0 biotin 5,000 mcg Tablet, Sublingual 5,000 mcg SUBLINGUAL 1200 RF: 0 Glucosamine Chondroitin 550-30-1 mg Capsule 1 cap PO BID RF: 0 pantoprazole 40 mg tablet,delayed release (DR/EC) 40 mg PO DAILYBB RF: 0 Referrals Referrals: Dolly Henson CRNP [Primary Care Provider] - Discharge Problem: Sepsis Qualifiers: Sepsis type: sepsis due to unspecified organism Sepsis acute organ dysfunction status: unspecified Qualified Code(s): A41.9 - Sepsis, unspecified organism
[2020-10-15 16:09] LABS: Appearance Urine Clear (Clear); Bilirubin Urine Negative (Negative); Blood Urine 1+ (Negative); Color Urine Yellow; Epithelial Cell Urine Auto >30 /lpf (0-5); Glucose Urine UA Negative (Negative); Ketones Urine 1+ (Negative); Leukocyte Esterase Urine 2+ (Negative); Nitrite Urine Negative (Negative); Protein Urine 1+ (Negative); RBC Urine Automated 0-4 /hpf (0-4); Specific Gravity Urine > 1.045 (1.000-1.030); Urobilinogen Urine Negative (Negative); WBC Urine Automated >30 /hpf (0-5)
[2020-10-15 16:24] LABS: Bacteria Urine Automated 1+ (Negative)
[2020-10-15 17:04] LABS: Influenza A virus by PCR Negative (Negative); Influenza B virus by PCR Negative (Negative)
[2020-10-15] MEDS ORDERED: GLUCAGON FOR INJ 1 MG VIAL SQ PRN (20:33)
[2020-10-15] MEDS ORDERED: GLUCOSE 10 TABS/TUBE PO PRN (20:33)
[2020-10-15] MEDS ORDERED: CEFEPIME CONSULT ACTIVE ONE (20:33)
[2020-10-15] MEDS ORDERED: MELOXICAM 7.5 MG TAB PO PRN (20:33)
[2020-10-15] MEDS ORDERED: clonazePAM 0.5 MG TAB PO PRN (20:33)
[2020-10-15] MEDS ORDERED: REMDESIVIR 200 MG in SODIUM CHLORIDE 0.9% 210 ML IV STA (20:33)
[2020-10-15] MEDS ORDERED: GLUCOSE 40% GEL 15 GM TUBE PO PRN (20:33)
[2020-10-15] MEDS ORDERED: CARBOHYDRATES FOR HYPOGLYCEMIA PO PRN (20:33)
[2020-10-15] MEDS ORDERED: ALUMINUM/MAGNESIUM SUSP 30 ML UDC PO PRN (20:33)
[2020-10-15] MEDS ORDERED: DEXTROSE 50% 50 ML SYRINGE IV PRN (20:33)
[2020-10-15] MEDS ORDERED: ONDANSETRON 4 MG OD TAB PO PRN (20:54)
[2020-10-15] MEDS ORDERED: NON-FORMULARY MEDICATION (Glucos Sul 2kcl-Msm-Chond-C-Mn [Glucosamine Chondroitin] 550-30- PO SCH (21:00)
[2020-10-15] MEDS: FLUTICASONE PROPIONATE NA SPR 16 GM BTL NAE SCH (21:44)
[2020-10-15] MEDS: ENOXAPARIN INJ 40 MG/0.4 ML SYR SQ SCH (21:45)
[2020-10-15] MEDS: CALCIUM 600MG + VIT D 400 IU TAB PO SCH (21:46)
[2020-10-15] MEDS: ASPIRIN 81 MG ECTAB PO SCH (21:46)
[2020-10-15] MEDS: INSULIN ASPART 100 UNITS/ML 3 ML PEN SC SCH ×2 (22:02→22:04)
--- NOTE | 2020-10-15 23:12 | Electrocardiogram Report ---
Test Reason : Blood Pressure : / mmHG Vent. Rate : 074 BPM Atrial Rate : 074 BPM P-R Int : 136 ms QRS Dur : 086 ms QT Int : 362 ms P-R-T Axes : 060 020 009 degrees QTc Int : 401 ms Normal sinus rhythm Normal ECG When compared with ECG of 24-FEB-2002 16:27, No significant change was found Confirmed by Francisco J Thompson ([id number]) on 10/15/2020 11:11:45 PM Referred By: Confirmed By:Francisco J Thompson
[2020-10-15] MEDS: AZTREONAM 2,000 MG in DEXTROSE 5% 100 ML IV SCH (23:57)
[2020-10-16] MEDS: SODIUM CHLORIDE 0.9% 10ML FLUSH IV SCH ×2 (01:52→23:01)
[2020-10-16] MEDS: LEVOTHYROXINE SODIUM 75 MCG TABLET PO SCH (05:34)
[2020-10-16] MEDS: PANTOprazole 40 MG TAB PO SCH (05:34)
[2020-10-16 07:14] LABS: Basophils # (auto) 0.01 K/uL (0-0.2); Basophils % (auto) 0.1 %; Hematocrit (blood only) 39.6 % (37-47); Hemoglobin 13.2 g/dL (12.0-16.0); Immature Granulocytes # (auto) 0.18 K/uL (0.00-0.02); Immature Granulocytes % (auto) 1.6 %; Lymphocytes # (auto) 0.77 K/uL (1.2-3.4); Mean Corpuscular Hgb Conc 33.3 g/dL (32-36); Mean Corpuscular Volume 96.1 fL (80-100); Mean Platelet Volume 10.7 fL (7.4-10.4); Monocytes # (auto) 0.32 K/uL (0.11-0.59); Monocytes % (auto) 2.9 %; Neutrophils # (auto) 9.73 K/uL (1.4-6.5); Neutrophils % (auto) 88.4 %; Platelet Count 338 K/uL (130-400); RDW Coefficient of Variation 13.6 % (11.5-14.5); RDW Standard Deviation 48.2 fL (36.4-46.3); Red Blood Count 4.12 M/uL (4.2-5.4); White Blood Count 11.01 K/uL (4.8-10.8)
[2020-10-16 07:28] LABS: Albumin Level 2.3 gm/dl (3.4-5.0); BUN Creatinine Ratio 32.5 (10-20); Calcium 8.9 mg/dl (8.5-10.1); Creatinine Clr Calc Pharmacy 84.7 ml/min; Est GFR (African American) 98.1; Est GFR (Non-African American) 84.6; Potassium 3.7 mmol/L (3.5-5.1)
[2020-10-16 07:31] LABS: Albumin Globulin Ratio 0.5 (0.9-2); Bilirubin,Total 0.4 mg/dl (0.2-1); Globulin 4.4 gm/dl (2.5-4.0); Total Protein 6.7 gm/dl (6.4-8.2)
[2020-10-16 08:03] LABS: Estimated Average Glucose 140 mg/dl; Hemoglobin A1C 6.5 % (4.5-5.6)
[2020-10-16] MEDS: DEXAMETHASONE SOD PHOSPHATE 6 MG in SYRINGE 0 ML IV SCH (08:56)
[2020-10-16] MEDS: AZTREONAM 2,000 MG in DEXTROSE 5% 100 ML IV SCH (08:56)
[2020-10-16] MEDS: CALCIUM 600MG + VIT D 400 IU TAB PO SCH ×2 (08:57→21:40)
[2020-10-16] MEDS: ENOXAPARIN INJ 40 MG/0.4 ML SYR SQ SCH ×2 (08:58→21:38)
[2020-10-16] MEDS ORDERED: AZITHROMYCIN 250 MG in DEXTROSE 5% 250 ML IV SCH (09:00)
[2020-10-16] MEDS: INSULIN ASPART 100 UNITS/ML 3 ML PEN SC SCH ×4 (09:18→22:00)
--- NOTE | 2020-10-16 12:00 | Pulmonary Consultation ---
Date of Consultation October 16, 2020 Assessment & Plan (1) 2019 novel coronavirus–infected pneumonia (NCIP)#8211;infected pneumonia (NCIP): (2) Acute respiratory failure with hypoxia: Impression: 69-year-old female diagnosed with COVID-19 10/05/2020 admitted 10/15/2020 with diffuse pulmonary infiltrates and progressive hypoxemic respiratory failure. She has been on high flow and overnight required noninvasive positive pressure ventilation. This morning she is back to high flow oxygen at 30 L/min and FiO2 100%. She appears very comfortable and in no apparent respiratory distress. Recommendations: 1. Covid pneumonia: Patient is currently receiving therapy with remdesivir and dexamethasone per protocols. This is appropriate given the degree of hypoxemia. 2. Hypoxemic respiratory failure: I reviewed with the patient options at this point time. I would like her to try self proning is much as possible to see if this can improve her VQ mismatch and shunt physiology. Given the fairly diffuse nature on her CT scan, I am not sure if this will be beneficial or not, however there does appear to be some basilar consolidation which may predispose her to shunt physiology and may improve with prone positioning. She will give it a try. We will continue high flow oxygen with target oxygen saturations greater than or equal to 85%. If we are unable to achieve this, noninvasive positive pressure ventilation may be appropriate. Would defer intubation until the patient develops respiratory distress. 3. The patient was placed on broad-spectrum antibiotics for presumed pneumonia. She does not require double coverage gram-negative rods so we will discontinue the aztreonam. Continue levofloxacin. Procalcitonin has been negative so I think 3 days of antimicrobial therapy should be adequate. We will check a BNP and try and gently diurese the patient as well to try and improve any hydrostatic pulmonary edema component. 4. Management of the other medical issues for the patient will be deferred to the admitting service. We will try and move her to a bed capable of ICU capabilities in the event that she deteriorates. I discussed with the hospitalist as well as with the charge nurse on the floor. The patient is critically ill at this point time. A total of 40 minutes of critical care time was spent evaluation management stabilization of this patient including discussion with other providers and nursing staff. We will continue to follow closely with you History of Present Illness Attending Physician: Michael Monae, DO Allergies Allergy/AdvReac Type Severity Reaction Status Date / Time Penicillins Allergy Severe RESP Verified 07/15/20 09:32 DISTRESS/HIVES Home Medications Medication Instructions Recorded Confirmed Type Glucosamine Chondroitin 1 cap PO BID 04/03/19 10/15/20 History aspirin [Aspirin Low Dose] 81 mg PO HS 04/03/19 10/15/20 History biotin 5,000 mcg SUBLINGUAL 1200 04/03/19 10/15/20 History calcium carbonate-vitamin D3 1 tab PO BID 04/03/19 10/15/20 History [Calcium 600 + D(3)] cholecalciferol (vitamin D3) 2,000 unit PO 1200 04/03/19 10/15/20 History [Vitamin D3] multivitamin 1 tab PO 1200 04/03/19 10/15/20 History clonazepam 0.5 mg tablet 0.5 mg PO BID PRN #60 tab 09/17/19 10/15/20 Rx ciclopirox 8 % topical solution 1 appln TOP DAILY #6.6 ml 05/26/20 10/15/20 Rx fluticasone propionate 50 1 spray INTRANASAL HS #16 gm 06/15/20 10/15/20 Rx mcg/actuation nasal spray,suspension levothyroxine 75 mcg tablet 75 mcg PO DAILY #90 tab 07/05/20 10/15/20 Rx rosuvastatin 5 mg tablet 5 mg PO .COMPLEX #36 tab 07/08/20 10/15/20 Rx meloxicam 15 mg tablet 15 mg PO DAILY PRN #30 tab 07/28/20 10/15/20 Rx ondansetron HCl 4 mg tablet 4 mg PO Q8H PRN #30 tab 10/11/20 10/15/20 Rx pantoprazole 40 mg PO DAILYBB 10/15/20 10/15/20 History Patient History Medical History COVID-19 GERD (gastroesophageal reflux disease) History of anesthesia reaction difficulty waking Hyperlipidemia Hypothyroidism Migraine Osteoarthritis Schatzki's ring of distal esophagus Surgical History History of cholecystectomy History of colonoscopy 2004 - - Divertics sigmoid History of dilatation and curettage History of oral surgery permanent bridge placed History of total hysterectomy with bilateral salpingo-oophorectomy (BSO) 12/09/2013 History of vaginal surgery bartholin cyst removal History of wisdom tooth extraction Hx of laparoscopy diagnostic Family History Sister Family history of diabetes mellitus Bleeding disorder Grandfather (Paternal) Family hx of colon cancer Father Cardiac disorder Cancer Sister Hypertension Clotting disorder Sinusitis Mother Hypertension Stroke Cancer Sinusitis Other No family history of adverse response to anesthesia Social History Smoking Status: Never smoker Second Hand Exposure: No (father smoked); Hx Alcohol Use: Yes Alcohol type: beer, wine and hard liquor Alcohol Intake Frequency Comment: Social Drinker Hx Substance Use: No Preferred Language: Liberian Communication Ability: Effective Floor Worker [place] Required: No Beliefs That Will Affect Care: None marital status: Current Living Situation: Alone Other Information That Helps Us Care for You: No Feels Safe at Home: Yes Safety Concerns: Feels Safe At This Time Assistive Devices: Glasses Review of Systems Review of Systems: Please refer to admission H&P. No additions or deletions Physical Exam Constitutional: WD/WN, vitals as above Patient appears relatively comfortable without conversational dyspnea despite her oxygen requirement Neck: trachea midline, no thyromegaly Respiratory: normal respiratory effort Coarse breath sounds bilaterally with few mid-to-late end expiratory wheezes Cardiovascular: RRR, no murmur, no edema Gastrointestinal (Abdomen): normal bowel sounds, soft, nontender, no hepatosplenomegaly Musculoskeletal: Extremities: extremities normal to inspection Skin: no rashes, warm and dry Neurologic: Nonfocal exam Lymphatic: no cervical lymphadenopathy Results & Data Results & Data ([facility]) Vital Signs (Past 12 Hours) Vital Signs Temp Pulse Pulse Resp BP Pulse Ox 10/16/20 11:36 36.8 C 75 24 146/84 H 93 10/16/20 11:30 57 L 20 99 10/16/20 10:36 100 10/16/20 09:32 55 L 10/16/20 08:04 58 L 20 90 10/16/20 07:08 55 L 18 108/73 95 10/16/20 04:10 36.9 C 55 L 20 155/95 H 92 10/16/20 02:25 52 L 18 94 10/16/20 00:18 91 10/16/20 00:05 88 L 10/16/20 00:02 87 L 10/16/20 00:01 36.8 C 66 18 142/72 H 80 L 10/15/20 23:53 58 L 18 91 Laboratory Results 10/16/20 06:31 10/16/20 06:31 INR 1.1 Venous blood gas with a pH 7.43 and CO2 of 44 Initial lactate 2.2 now down to 1.5 Ferritin elevated at 1197 Initial AST elevated at 73 now down to 65 LDH elevated 585 CPK 182 which is normal C-reactive protein elevated at 17.3 Initial procalcitonin 0.14 and currently 0.19 Influenza negative COVID-19 from 10/05/2020 + Diagnostic Findings Chest x-ray from 10/15/2020 was independently reviewed. There is diffuse increased densities throughout without ham consolidation. CT angiogram from 10/15/2020 was independently reviewed. There are patchy areas of groundglass opacity with some basilar consolidation present. These groundglass opacities extend up to the apices with some mosaicism. No significant adenopathy. PG Care Time/CCT Total # of Minutes Spent Total Time Spent with Patient: Total time spent is greater than 50% in coordination of care (as documented) at patient's floor/unit and/or counseling patient: Coding Level of Care Code None Diagnoses 2019 novel coronavirus–infected pneumonia (NCIP)#8211;infected pneumonia (NCIP) U07.1; J12.89 Acute respiratory failure with hypoxia J96.01 Time Spent (min) 45 Comment 45 minutes critical care time, [id number]
[2020-10-16] MEDS: CHOLECALCIFEROL 1,000 UNITS 25 MCG TAB PO SCH (12:12)
[2020-10-16] MEDS: MULTIVITAMIN TAB PO SCH (12:12)
[2020-10-16] MEDS: FUROSEMIDE 20 MG in SYRINGE 0 ML IV SCH (12:26)
[2020-10-16] MEDS: levoFLOXacin/D5W 750 MG/150 ML BAG IV SCH (17:01)
--- NOTE | 2020-10-16 21:13 | Hospitalist Progress Note ---
Date of Service October 16, 2020 Assessment & Plan (1) Sepsis: Lactate 2.2 -> 1.5 Source - COVID-19 +/- possible bacterial PNA Procalcitonin negative but given severity of illness on imaging and hypoxia with mildly increased WBC will cover for bacterial PNA. stop aztreonam, continue levofloxacin for 3 days and re-evaluate Influenza negative Follow up blood cultures UA pending but no symptoms suggestive of UTI. (2) Pneumonia due to COVID-19 virus: Continue Decadron 6 mg IV daily, day 2 today continue Remdesivir, day 2 convalescent plasma on 10/16 on HFNC 100% FiO2 and 40L, no distress at all auto prone as much as possible to reduce effects of shunt physiology pulmonary following (3) Acute respiratory failure with hypoxia: Aim O2 sats > 90%. Currently adequate on high flow oxygen @ 40LPM, FiO2 100%. continue to prone as much as she can (4) Prediabetes: HbA1C 5.9 in May. Glucose 129 on admission. BSG ACHS and will initially use correction factor only Novolog in case dexamethasone increases her glucose levels. (5) Hyperlipidemia: Continue her usual rosuvastatin dosing. (6) GERD (gastroesophageal reflux disease): Continue her usual pantoprazole 40mg PO daily (7) Esophageal dysmotility: Aspiration precautions. (8) Hypothyroidism: TSH 1.31 in Aug. Continue levothyroxine 75 mcg PO daily (9) Anxiety: Will reduce her usual clonazepam 0.5 -> 0.25mg q12h PRN as does not use this regularly and to avoid respiratory depression. (10) DVT prophylaxis: Lovenox 40mg SQ BID Admission and Anticipated Discharge Date Admission Date: October 15, 2020 Subjective patient was on BIPAP over night, now on HFNC 40L and 100% FiO2 she is not in any distress, she is comfortable laying prone to promote better oxygen exchange she reports that she is strong and physically fit at baseline, she was just using a chainsaw to cut down trees three days ago she is determined to get through this illness discussed with her the importance of eating to maintain strength appreciate consult from Dr. Zazueta, discussed plan with him moved patient to 206 in case she would decompensate and we could intubate if needed patient is open to being intubated and ventilated if needed Review of Systems Review of Systems: All systems reviewed & are unremarkable except as noted in Subjective Constitutional: no fever, no chills, no sweats, no fatigue and no weakness Respiratory: + dyspnea and + dyspnea on exertion; no cough and no wheezing Cardiovascular: no chest pain and no edema Physical Exam Constitutional: well developed, well nourished and comfortable; no acute distress Neck: trachea midline, no thyromegaly Respiratory: + labored breathing and + tachypneic; no respiratory distress and no cough Auscultation: lungs clear to auscultation bilaterally Cardiovascular: RRR, no murmur, no edema Gastrointestinal (Abdomen): normal bowel sounds, soft, nontender, no hepatosplenomegaly Musculoskeletal: no cyanosis or clubbing, extremities motor strength 5/5 Skin: no rashes, warm and dry Neurologic: patellar DTR's 2+ bilat, sensation intact and PERRL, EOMI, accommodation nl, no face palsy, no dysarthria Psychiatric: A+Ox3, euthymic affect Results & Data Results & Data ([facility]) Vital Signs (Past 12 Hours) Vital Signs Temp Pulse Pulse Resp BP BP Pulse Ox 10/16/20 20:10 36.9 C 66 22 122/73 90 10/16/20 20:06 36.9 C 66 22 122/73 90 10/16/20 19:30 36.6 C 67 20 123/64 89 L 10/16/20 19:25 73 20 91 10/16/20 18:30 36.6 C 71 20 107/68 91 10/16/20 18:00 36.8 C 87 22 130/97 91 10/16/20 17:45 36.8 C 69 22 123/75 89 L 10/16/20 17:26 36.9 C 61 18 115/83 89 L 10/16/20 16:06 36.6 C 70 22 119/79 89 L 10/16/20 15:35 61 20 91 10/16/20 13:44 78 10/16/20 12:50 58 L 20 92 10/16/20 11:36 36.8 C 75 24 146/84 H 93 10/16/20 11:30 57 L 20 99 10/16/20 10:36 100 10/16/20 09:32 55 L Laboratory Results Laboratory Results - last 24 hr 11/27/20 11/28/20 11/28/20 15:04 06:31 06:31 WBC 11.01 H RBC 4.12 L Hgb 13.2 Hct 39.6 MCV 96.1 MCH 32.0 MCHC 33.3 RDW Std Deviation 48.2 H RDW Coeff of Mary 13.6 Plt Count 338 MPV 10.7 H Immature Gran % (Auto) 1.6 Neut % (Auto) 88.4 Lymph % (Auto) 7.0 [place] % (Auto) 2.9 Eos % (Auto) 0.0 Baso % (Auto) 0.1 Neut # (Auto) 9.73 H Lymph # (Auto) 0.77 L [place] # (Auto) 0.32 Eos # (Auto) 0.00 Baso # (Auto) 0.01 Immature Gran # (Auto) 0.18 H Sodium 142 Potassium 3.7 Chloride 107 Carbon Dioxide 29 Anion Gap 6.0 BUN 24 H Creatinine 0.73 Est Cr Clr Drug Dosing 84.7 Est GFR ( Amer) 98.1 Est GFR (Non-Af Amer) 84.6 BUN/Creatinine Ratio 32.5 H Glucose 146 H POC Glucose Estimat Average Glucose Hemoglobin A1c Calcium 8.9 Total Bilirubin 0.4 AST 65 H ALT 60 Alkaline Phosphatase 66 NT-Pro-B Natriuret Pep Total Protein 6.7 Albumin 2.3 L Globulin 4.4 H Albumin/Globulin Ratio 0.5 L Procalcitonin Hepatitis C Ab Screen Blood Type O Positive Antibody Screen NEGATIVE 10/16/20 10/16/20 10/16/20 06:31 06:31 06:31 WBC RBC Hgb Hct MCV MCH MCHC RDW Std Deviation RDW Coeff of Mary Plt Count MPV Immature Gran % (Auto) Neut % (Auto) Lymph % (Auto) [place] % (Auto) Eos % (Auto) Baso % (Auto) Neut # (Auto) Lymph # (Auto) [place] # (Auto) Eos # (Auto) Baso # (Auto) Immature Gran # (Auto) Sodium Potassium Chloride Carbon Dioxide Anion Gap BUN Creatinine Est Cr Clr Drug Dosing Est GFR ( Amer) Est GFR (Non-Af Amer) BUN/Creatinine Ratio Glucose POC Glucose Estimat Average Glucose 140 Hemoglobin A1c 6.5 H Calcium Total Bilirubin AST ALT Alkaline Phosphatase NT-Pro-B Natriuret Pep Total Protein Albumin Globulin Albumin/Globulin Ratio Procalcitonin 0.19 Hepatitis C Ab Screen Neg Blood Type Antibody Screen 10/16/20 10/16/20 10/16/20 07:45 11:34 12:10 WBC RBC Hgb Hct MCV MCH MCHC RDW Std Deviation RDW Coeff of Mary Plt Count MPV Immature Gran % (Auto) Neut % (Auto) Lymph % (Auto) [place] % (Auto) Eos % (Auto) Baso % (Auto) Neut # (Auto) Lymph # (Auto) [place] # (Auto) Eos # (Auto) Baso # (Auto) Immature Gran # (Auto) Sodium Potassium Chloride Carbon Dioxide Anion Gap BUN Creatinine Est Cr Clr Drug Dosing Est GFR ( Amer) Est GFR (Non-Af Amer) BUN/Creatinine Ratio Glucose POC Glucose 143 H 160 H Estimat Average Glucose Hemoglobin A1c Calcium Total Bilirubin AST ALT Alkaline Phosphatase NT-Pro-B Natriuret Pep 308 Total Protein Albumin Globulin Albumin/Globulin Ratio Procalcitonin Hepatitis C Ab Screen Blood Type Antibody Screen 10/16/20 10/16/20 16:52 20:53 WBC RBC Hgb Hct MCV MCH MCHC RDW Std Deviation RDW Coeff of Mary Plt Count MPV Immature Gran % (Auto) Neut % (Auto) Lymph % (Auto) [place] % (Auto) Eos % (Auto) Baso % (Auto) Neut # (Auto) Lymph # (Auto) [place] # (Auto) Eos # (Auto) Baso # (Auto) Immature Gran # (Auto) Sodium Potassium Chloride Carbon Dioxide Anion Gap BUN Creatinine Est Cr Clr Drug Dosing Est GFR ( Amer) Est GFR (Non-Af Amer) BUN/Creatinine Ratio Glucose POC Glucose 155 H 162 H Estimat Average Glucose Hemoglobin A1c Calcium Total Bilirubin AST ALT Alkaline Phosphatase NT-Pro-B Natriuret Pep Total Protein Albumin Globulin Albumin/Globulin Ratio Procalcitonin Hepatitis C Ab Screen Blood Type Antibody Screen Medications Administered Current Inpatient Medications Acetaminophen (Acetaminophen 325 Mg Tab) 650 mg PO Q4H PRN PRN Reason: Pain or Fever Stop: 11/14/20 20:32 Al Hydrox/Mg Hydrox/Simethicone (Aluminum/Magnesium Susp 30 Ml Udc) 15 ml PO Q4H PRN PRN Reason: Dyspepsia Stop: 11/14/20 20:32 Aspirin (Aspirin 81 Mg Ectab) 81 mg PO HS HARISH Stop: 11/14/20 20:59 Last Admin: 10/16/20 21:46 Dose: 81 mg Documented by: Clonazepam (Clonazepam 0.25 Mg Tab) 0.25 mg PO BID PRN PRN Reason: anxiety Stop: 11/14/20 20:32 Dextrose (Dextrose 50% 50 Ml Syringe) 25 - 50 ml IV UD PRN; Protocol PRN Reason: Hypoglycemia Protocol Stop: 11/14/20 20:32 Enoxaparin Sodium (Enoxaparin Inj 40 Mg/0.4 Ml Syr) 40 mg SQ BID HARISH Stop: 11/14/20 20:59 Last Admin: 10/16/20 21:38 Dose: 40 mg Documented by: Fluticasone Propionate (Fluticasone Propionate Na Spr 16 Gm Btl) 1 sprays ABRAHAN HS HARISH Stop: 11/14/20 20:59 Last Admin: 10/16/20 21:39 Dose: 1 sprays Documented by: Glucagon (Glucagon For Inj 1 Mg Vial) 1 mg SQ UD PRN; Protocol PRN Reason: Hypoglycemia Protocol Stop: 11/14/20 20:32 Glucose (Glucose 10 Tabs/Tube) 4 - 8 tabs PO UD PRN; Protocol PRN Reason: Hypoglycemia Protocol Stop: 11/14/20 20:32 Glucose (Glucose 40% Gel 15 Gm Tube) 15 - 30 gm PO UD PRN; Protocol PRN Reason: Hypoglycemia Protocol Stop: 11/14/20 20:32 Remdesivir 100 mg/ Sodium (Chloride) 250 mls @ 250 mls/hr IV Q24H HARISH; Protocol Stop: 10/19/20 21:59 Last Admin: 10/16/20 21:38 Dose: 250 mls/hr Documented by: Dexamethasone Sodium Phosphate (6 mg/ Syringe) 1.5 mls @ 1 mls/min IV QAM [facility] Stop: 10/24/20 09:02 Last Admin: 10/16/20 08:56 Dose: 1 mls/min Documented by: Levofloxacin/Dextrose (Levaquin/D5w) 750 mg in 150 mls @ 100 mls/hr IV DAILY@1600 HARISH; Protocol Stop: 10/22/20 15:59 Last Infusion: 10/16/20 18:37 Dose: Infused Documented by: Furosemide 20 mg/ Syringe 2 mls @ 4 mls/min IV DAILY [facility] Stop: 11/15/20 12:14 Last Admin: 10/16/20 12:26 Dose: 4 mls/min Documented by: Insulin Aspart (Insulin Aspart 100 Units/Ml 3 Ml Pen) 0 units SC ACHS [facility] Stop: 11/14/20 20:32 Last Admin: 10/16/20 22:00 Dose: 1 units Documented by: Levothyroxine Sodium (Levothyroxine Sodium 75 Mcg Tablet) 75 mcg PO DAILYBB [facility] Stop: 11/15/20 06:29 Last Admin: 10/16/20 05:34 Dose: 75 mcg Documented by: Meloxicam (Meloxicam 7.5 Mg Tab) 15 mg PO DAILY PRN PRN Reason: Pain Stop: 11/14/20 20:32 Last Admin: 10/16/20 08:58 Dose: 15 mg Documented by: Miscellaneous (Carbohydrates For Hypoglycemia ) 15 - 30 gm PO UD PRN PRN Reason: Hypoglycemia Protocol Stop: 11/14/20 20:32 Miscellaneous Information (Levofloxacin Consult Active) 1 ea N/A UD PRN PRN Reason: Consult Stop: 11/14/20 15:28 Multivitamins (Multivitamin Tab) 1 tab PO 1200 [facility] Stop: 11/15/20 11:59 Last Admin: 10/16/20 12:12 Dose: 1 tab Documented by: Multivitamins/Minerals (Calcium 600mg + Vit D 400 Iu Tab) 1 tab PO BID [facility] Stop: 11/14/20 20:59 Last Admin: 10/16/20 21:40 Dose: 1 tab Documented by: Ondansetron HCl (Ondansetron 4 Mg Od Tab) 4 mg PO Q8H PRN PRN Reason: nausea Stop: 11/14/20 20:53 Pantoprazole Sodium (Pantoprazole 40 Mg Tab) [facility] Stop: 11/15/20 06:29 Last Admin: 10/16/20 05:34 Dose: 40 mg Documented by: Polyethylene Glycol (Polyethylene (Miralax) 17 Gm Pack) 17 gm PO DAILY PRN PRN Reason: Constipation Stop: 11/14/20 20:32 Rosuvastatin Calcium (Rosuvastatin Calcium 5 Mg Tab) 5 mg PO MoWeFr@0900 [facility] Stop: 11/17/20 08:59 Sodium Chloride (Sodium Chloride 0.9% 10ml Flush) 30 ml IV Q24H [facility] Stop: 10/19/20 21:01 Last Admin: 10/16/20 01:52 Dose: 30 ml Documented by: Vitamin D (Cholecalciferol 1,000 Units 25 Mcg Tab) 2,000 units PO DAILY@1200 [facility] Stop: 11/15/20 11:59 Last Admin: 10/16/20 12:12 Dose: 2,000 units Documented by: PG Care Time/CCT Total # of Minutes Spent Total Time Spent: 40 Total Time Spent with Patient: Total time spent is greater than 50% in coordination of care (as documented) at patient's floor/unit and/or counseling patient: Prolonged Care Time Prolonged Care Time: No Coding Level of Care Code 60374 Subseq Hosp Care Lvl 3 Diagnoses Sepsis A41.9 Sepsis acute organ dysfunction status: unspecified Sepsis type: sepsis due to unspecified organism Pneumonia due to COVID-19 virus U07.1; J12.89 Acute respiratory failure with hypoxia J96.01 Prediabetes R73.03 Hyperlipidemia E78.5 GERD (gastroesophageal reflux disease) K21.9 Esophageal dysmotility K22.4 Hypothyroidism E03.9 Anxiety F41.9 DVT prophylaxis Z29.9 (1) Sepsis Sepsis acute organ dysfunction status: unspecified Sepsis type: sepsis due to unspecified organism Qualified Code(s): A41.9 - Sepsis, unspecified organism
[2020-10-16] MEDS: REMDESIVIR 100 MG in SODIUM CHLORIDE 0.9% 230 ML IV SCH (21:38)
[2020-10-16] MEDS: FLUTICASONE PROPIONATE NA SPR 16 GM BTL NAE SCH (21:39)
[2020-10-16] MEDS: ASPIRIN 81 MG ECTAB PO SCH (21:46)
[2020-10-17] MEDS ORDERED: COUGH DROP (SUGAR FREE) LOZ 24 LOZ/1 BOX BUCCAL ONE (01:44)
[2020-10-17] MEDS: ACETAMINOPHEN 325 MG TAB PO PRN ×2 (04:11→22:46)
[2020-10-17] MEDS: LEVOTHYROXINE SODIUM 75 MCG TABLET PO SCH (06:24)
[2020-10-17] MEDS: PANTOprazole 40 MG TAB PO SCH (06:24)
[2020-10-17] MEDS: INSULIN ASPART 100 UNITS/ML 3 ML PEN SC SCH ×4 (08:09→20:28)
[2020-10-17] MEDS: FUROSEMIDE 20 MG in SYRINGE 0 ML IV SCH (08:10)
[2020-10-17] MEDS: CALCIUM 600MG + VIT D 400 IU TAB PO SCH ×2 (08:10→20:27)
[2020-10-17] MEDS: DEXAMETHASONE SOD PHOSPHATE 6 MG in SYRINGE 0 ML IV SCH (08:10)
[2020-10-17] MEDS: ENOXAPARIN INJ 40 MG/0.4 ML SYR SQ SCH ×2 (09:15→20:27)
--- NOTE | 2020-10-17 11:15 | Pulmonology Progress Note ---
Date of Service October 17, 2020 Assessment & Plan (1) 2019 novel coronavirus–infected pneumonia (NCIP)#8211;infected pneumonia (NCIP): (2) Acute respiratory failure with hypoxia: Impression: 69-year-old female diagnosed with COVID-19 10/05/2020 admitted 10/15/2020 with diffuse pulmonary infiltrates and progressive hypoxemic respiratory failure. Patient continues to demonstrate significant shunt physiology with high oxygen requirement intermittently requiring high flow nasal cannula or BiPAP. Recommendations: 1. Covid pneumonia: Patient is currently receiving therapy with remdesivir and dexamethasone per protocols. This is appropriate given the degree of hypoxemia. 2. Hypoxemic respiratory failure: The patient has not been enthusiastic about pursuing proning up to this point. I advised her that I do think it would be beneficial to see whether or not she can respond and we can improve her shunt physiology. We will continue to alternate between high flow and BiPAP at this point time. The patient states that she is amenable to trying to self prone. We did discuss placing a [place] catheter to eliminate need to get up and urinate at the bedside commode and try and improve her oxygenation however she is reluctant to consider this at this point time. I did advise her that if things worsen, the recommendation would be to pursue mechanical ventilation. She is amenable to being intubated but states that right now she is doing just fine. We will continue to follow her closely. 3. The patient was placed on broad-spectrum antibiotics for presumed pneumonia. We deescalated to levofloxacin as monotherapy which should be adequate. She is currently day #3. Can likely discontinue in the next 24 hours based on clinical response. We also initiated diuretics to treat any form of hydrostatic pulmonary edema. Her I/O remains slightly positive, however her BNP was normal at 308. 4. Management of the other medical issues for the patient will be deferred to the admitting service. Patient's prognosis is guarded. We will continue to follow closely. The patient is critically ill at this point time. A total of 40 minutes of critical care time was spent evaluation management stabilization of this patient including discussion with other providers and nursing staff. We will continue to follow closely with you. Prognosis is guarded and the patient is certainly at risk of developing progressive respiratory failure requiring intubation mechanical ventilation. Admission and Anticipated Discharge Date Admission Date: October 15, 2020 Subjective Patient seen and examined. She is currently on BiPAP. Her oxygen saturations are in the low 90% range on 100% FiO2. She again does not appear toxic or in any distress. She wants to eat and drink. We recommended proning yesterday however the patient was reluctant to consider proning. She is coughing but not expectorating any phlegm. Review of Systems Review of Systems: Unchanged from prior Physical Exam Constitutional: well developed; not ill appearing Neck: trachea midline, no thyromegaly Respiratory: + labored breathing and + uses accessory muscles Faint rales bilaterally Cardiovascular: RRR, no murmur, no edema Gastrointestinal (Abdomen): normal bowel sounds, soft, nontender, no hepatosplenomegaly Musculoskeletal: Extremities: extremities normal to inspection Skin: no rashes, warm and dry Lymphatic: no cervical lymphadenopathy Results & Data Results & Data ([facility]) Vital Signs (Past 12 Hours) Vital Signs Temp Pulse Pulse Resp BP Pulse Ox 10/17/20 07:53 81 30 H 90 10/17/20 07:30 37 C 74 20 146/93 H 88 L 10/17/20 06:22 37.2 C 10/17/20 04:19 38.2 C H 92 10/17/20 03:45 37.5 C 83 20 164/97 H 10/17/20 03:32 65 20 90 10/16/20 23:20 68 22 91 Laboratory Results 10/16/20 06:31 10/16/20 06:31 Diagnostic Findings No new imaging PG Care Time/CCT Total # of Minutes Spent Total Time Spent with Patient: Total time spent is greater than 50% in coordination of care (as documented) at patient's floor/unit and/or counseling patient: Coding Level of Care Code None Diagnoses 2019 novel coronavirus–infected pneumonia (NCIP)#8211;infected pneumonia (NCIP) U07.1; J12.89 Acute respiratory failure with hypoxia J96.01 Time Spent (min) 45 Comment 45 minutes critical care time, [id number]
[2020-10-17] MEDS: CHOLECALCIFEROL 1,000 UNITS 25 MCG TAB PO SCH (12:24)
[2020-10-17] MEDS: MULTIVITAMIN TAB PO SCH (12:24)
--- NOTE | 2020-10-17 16:43 | Hospitalist Progress Note ---
Date of Service October 17, 2020 Assessment & Plan (1) Sepsis: Lactate 2.2 -> 1.5 Source - COVID-19 +/- possible bacterial PNA Procalcitonin negative but given severity of illness on imaging and hypoxia with mildly increased WBC will cover for bacterial PNA. stop aztreonam, continue levofloxacin for 5 days then stop, today is day 3 Influenza negative Follow up blood cultures - no growth (2) Pneumonia due to COVID-19 virus: Continue Decadron 6 mg IV daily, day 3 today continue Remdesivir, day 3 convalescent plasma on 10/16 on HFNC 100% FiO2 and 40L, no distress at all auto prone as much as possible to reduce effects of shunt physiology pulmonary following, appreciate recommendations from Dr. Zazueta (3) Acute respiratory failure with hypoxia: Aim O2 sats > 90%. Currently adequate on high flow oxygen @ 40LPM, FiO2 100%. continue to prone as much as she can she needs BIPAP at night some times (4) Prediabetes: HbA1C 5.9 in May. Glucose 129 on admission. BSG ACHS and will initially use correction factor only Novolog in case dexamethasone increases her glucose levels sugars stable (5) Hyperlipidemia: Continue her usual rosuvastatin dosing. (6) GERD (gastroesophageal reflux disease): Continue her usual pantoprazole 40mg PO daily (7) Esophageal dysmotility: Aspiration precautions. (8) Hypothyroidism: TSH 1.31 in Aug. Continue levothyroxine 75 mcg PO daily (9) Anxiety: Will reduce her usual clonazepam 0.5 -> 0.25mg q12h PRN as does not use this regularly and to avoid respiratory depression. (10) DVT prophylaxis: Lovenox 40mg SQ BID Admission and Anticipated Discharge Date Admission Date: October 15, 2020 Subjective patient says she feels fine, minimal shortness of breath she says she is eating fairly well she needed BIPAP this morning due to saturations being in the mid 80's on HFNC encouraged her to keep trying to lay on her stomach, she said she will try discussed with Dr. Zazueta, he spoke with the patient, stressed that she is really ill, needs to listen to our advice about laying prone no labs today Review of Systems Review of Systems: All systems reviewed & are unremarkable except as noted in Subjective Constitutional: + weakness; no fever and no fatigue Respiratory: + cough, + dyspnea and + dyspnea on exertion Cardiovascular: no chest pain and no edema Gastrointestinal: no abdominal pain, no nausea, no vomiting, no constipation and no diarrhea/loose stools Physical Exam Constitutional: well developed, well nourished and comfortable; no acute distress Neck: trachea midline, no thyromegaly Respiratory: + labored breathing and + tachypneic; no respiratory distress and no cough Auscultation: lungs clear to auscultation bilaterally Cardiovascular: RRR, no murmur, no edema Gastrointestinal (Abdomen): normal bowel sounds, soft, nontender, no hepatosplenomegaly Musculoskeletal: no cyanosis or clubbing, extremities motor strength 5/5 Skin: no rashes, warm and dry Neurologic: patellar DTR's 2+ bilat, sensation intact and PERRL, EOMI, accommodation nl, no face palsy, no dysarthria Psychiatric: A+Ox3, euthymic affect Results & Data Results & Data ([facility]) Vital Signs (Past 12 Hours) Vital Signs Temp Pulse Pulse Resp BP BP Pulse Ox 10/17/20 15:41 37.3 C 67 25 H 107/55 L 94 10/17/20 15:22 64 19 93 10/17/20 11:44 37.1 C 76 20 122/71 91 10/17/20 11:12 80 18 91 10/17/20 07:53 81 30 H 90 10/17/20 07:30 37 C 74 20 146/93 H 88 L 10/17/20 06:22 37.2 C Laboratory Results Laboratory Results - last 24 hr 10/15/20 10/16/20 10/16/20 15:04 16:52 20:53 POC Glucose 155 H 162 H Blood Type O Positive Antibody Screen NEGATIVE 10/17/20 10/17/20 07:28 11:43 POC Glucose 94 130 H Blood Type Antibody Screen Medications Administered Current Inpatient Medications Acetaminophen (Acetaminophen 325 Mg Tab) 650 mg PO Q4H PRN PRN Reason: Pain or Fever Stop: 11/14/20 20:32 Last Admin: 10/17/20 04:11 Dose: 650 mg Documented by: Al Hydrox/Mg Hydrox/Simethicone (Aluminum/Magnesium Susp 30 Ml Udc) 15 ml PO Q4H PRN PRN Reason: Dyspepsia Stop: 11/14/20 20:32 Aspirin (Aspirin 81 Mg Ectab) 81 mg PO HS [facility] Stop: 11/14/20 20:59 Last Admin: 10/16/20 21:46 Dose: 81 mg Documented by: Clonazepam (Clonazepam 0.25 Mg Tab) 0.25 mg PO BID PRN PRN Reason: anxiety Stop: 11/14/20 20:32 Dextrose (Dextrose 50% 50 Ml Syringe) 25 - 50 ml IV UD PRN; Protocol PRN Reason: Hypoglycemia Protocol Stop: 11/14/20 20:32 Enoxaparin Sodium (Enoxaparin Inj 40 Mg/0.4 Ml Syr) 40 mg SQ BID [facility] Stop: 11/14/20 20:59 Last Admin: 10/17/20 09:15 Dose: 40 mg Documented by: Fluticasone Propionate (Fluticasone Propionate Na Spr 16 Gm Btl) [address] [facility] Stop: 11/14/20 20:59 Last Admin: 10/16/20 21:39 Dose: 1 sprays Documented by: Glucagon (Glucagon For Inj 1 Mg Vial) 1 mg SQ UD PRN; Protocol PRN Reason: Hypoglycemia Protocol Stop: 11/14/20 20:32 Glucose (Glucose 10 Tabs/Tube) 4 - 8 tabs PO UD PRN; Protocol PRN Reason: Hypoglycemia Protocol Stop: 11/14/20 20:32 Glucose (Glucose 40% Gel 15 Gm Tube) 15 - 30 gm PO UD PRN; Protocol PRN Reason: Hypoglycemia Protocol Stop: 11/14/20 20:32 Remdesivir 100 mg/ Sodium (Chloride) 250 mls @ 250 mls/hr IV Q24H [facility]; Protocol Stop: 10/19/20 21:59 Last Infusion: 10/16/20 23:02 Dose: Infused Documented by: Dexamethasone Sodium Phosphate (6 mg/ Syringe) 1.5 mls @ 1 mls/min IV QAM [facility] Stop: 10/24/20 09:02 Last Admin: 10/17/20 08:10 Dose: 1 mls/min Documented by: Levofloxacin/Dextrose (Levaquin/D5w) 750 mg in 150 mls @ 100 mls/hr IV DAILY@1600 [facility]; Protocol Stop: 10/22/20 15:59 Last Infusion: 10/16/20 18:37 Dose: Infused Documented by: Furosemide 20 mg/ Syringe 2 mls @ 4 mls/min IV DAILY [facility] Stop: 11/15/20 12:14 Last Admin: 10/17/20 08:10 Dose: 4 mls/min Documented by: Insulin Aspart (Insulin Aspart 100 Units/Ml 3 Ml Pen) 0 units SC ACHS [facility] Stop: 11/14/20 20:32 Last Admin: 10/17/20 12:06 Dose: Not Given Documented by: Levothyroxine Sodium (Levothyroxine Sodium 75 Mcg Tablet) 75 mcg PO DAILYBB [facility] Stop: 11/15/20 06:29 Last Admin: 10/17/20 06:24 Dose: 75 mcg Documented by: Meloxicam (Meloxicam 7.5 Mg Tab) 15 mg PO DAILY PRN PRN Reason: Pain Stop: 11/14/20 20:32 Last Admin: 10/16/20 08:58 Dose: 15 mg Documented by: Miscellaneous (Carbohydrates For Hypoglycemia ) 15 - 30 gm PO UD PRN PRN Reason: Hypoglycemia Protocol Stop: 11/14/20 20:32 Miscellaneous Information (Levofloxacin Consult Active) 1 ea N/A UD PRN PRN Reason: Consult Stop: 11/14/20 15:28 Multivitamins (Multivitamin Tab) 1 tab PO 1200 [facility] Stop: 11/15/20 11:59 Last Admin: 10/17/20 12:24 Dose: 1 tab Documented by: Multivitamins/Minerals (Calcium 600mg + Vit D 400 Iu Tab) 1 tab PO BID [facility] Stop: 11/14/20 20:59 Last Admin: 10/17/20 08:10 Dose: Not Given Documented by: Ondansetron HCl (Ondansetron 4 Mg Od Tab) 4 mg PO Q8H PRN PRN Reason: nausea Stop: 11/14/20 20:53 Pantoprazole Sodium (Pantoprazole 40 Mg Tab) 40 mg PO DAILYBB [facility] Stop: 11/15/20 06:29 Last Admin: 10/17/20 06:24 Dose: 40 mg Documented by: Polyethylene Glycol (Polyethylene (Miralax) 17 Gm Pack) 17 gm PO DAILY PRN PRN Reason: Constipation Stop: 11/14/20 20:32 Rosuvastatin Calcium (Rosuvastatin Calcium 5 Mg Tab) 5 mg PO MoWeFr@0900 [facility] Stop: 11/17/20 08:59 Sodium Chloride (Sodium Chloride 0.9% 10ml Flush) 30 ml IV Q24H [facility] Stop: 10/19/20 21:01 Last Admin: 10/16/20 23:01 Dose: 30 ml Documented by: Vitamin D (Cholecalciferol 1,000 Units 25 Mcg Tab) 2,000 units PO DAILY@1200 [facility] Stop: 11/15/20 11:59 Last Admin: 10/17/20 12:24 Dose: 2,000 units Documented by: PG Care Time/CCT Total # of Minutes Spent Total Time Spent: 36 Total Time Spent with Patient: Total time spent is greater than 50% in coordination of care (as documented) at patient's floor/unit and/or counseling patient: two visits with patient discussion with Dr. Zazueta reviewed chart and labs documentation Coding Level of Care Code 96371 Subseq Hosp Care Lvl 3 Diagnoses Sepsis A41.9 Sepsis acute organ dysfunction status: unspecified Sepsis type: sepsis due to unspecified organism Pneumonia due to COVID-19 virus U07.1; J12.89 Acute respiratory failure with hypoxia J96.01 Prediabetes R73.03 Hyperlipidemia E78.5 GERD (gastroesophageal reflux disease) K21.9 Esophageal dysmotility K22.4 Hypothyroidism E03.9 Anxiety F41.9 DVT prophylaxis Z29.9 (1) Sepsis Sepsis acute organ dysfunction status: unspecified Sepsis type: sepsis due to unspecified organism Qualified Code(s): A41.9 - Sepsis, unspecified organism
[2020-10-17] MEDS: levoFLOXacin/D5W 750 MG/150 ML BAG IV SCH (17:11)
[2020-10-17] MEDS: FLUTICASONE PROPIONATE NA SPR 16 GM BTL NAE SCH (20:26)
[2020-10-17] MEDS: ASPIRIN 81 MG ECTAB PO SCH (20:27)
[2020-10-17] MEDS: SODIUM CHLORIDE 0.9% 10ML FLUSH IV SCH (20:46)
[2020-10-17] MEDS: REMDESIVIR 100 MG in SODIUM CHLORIDE 0.9% 230 ML IV SCH (20:46)
[2020-10-18] MEDS: ACETAMINOPHEN 325 MG TAB PO PRN ×2 (03:32→15:21)
[2020-10-18] MEDS: PANTOprazole 40 MG TAB PO SCH (06:48)
[2020-10-18] MEDS: LEVOTHYROXINE SODIUM 75 MCG TABLET PO SCH (06:49)
[2020-10-18 07:18] LABS: Est GFR (African American) 105.2; Est GFR (Non-African American) 90.8
--- NOTE | 2020-10-18 07:43 | Hospitalist Progress Note ---
Date of Service October 18, 2020 Assessment & Plan (1) Sepsis: Lactate 2.2 -> 1.5 Source - COVID-19 +/- possible bacterial PNA Procalcitonin negative but given severity of illness on imaging and hypoxia with mildly increased WBC will cover for bacterial PNA. stop aztreonam, continue levofloxacin for 5 days then stop, LD 10/19 still with fevers to 100.8 10/18/20 Influenza negative Follow up blood cultures - no growth to date (2) Pneumonia due to COVID-19 virus: Continue Decadron 6 mg IV daily,LD 10/24 continue Remdesivir, LD 10/19 convalescent plasma on 10/16 on HFNC 100% FiO2 and 40L, auto prone as much as possible to reduce effects of shunt physiology pulmonary following, appreciate recommendations (3) Acute respiratory failure with hypoxia: Aim O2 sats > 90%. Currently adequate on high flow oxygen @ 40LPM, FiO2 100%. continue to prone as much as she can she needs BIPAP at night some times (4) Prediabetes: HbA1C 5.9 in May. Glucose 129 on admission. BSG ACHS and will initially use correction factor only Novolog in case dexamethasone increases her glucose levels so far BSG have been acceptable (5) Hyperlipidemia: Continue her usual rosuvastatin dosing. (6) GERD (gastroesophageal reflux disease): Continue her usual pantoprazole 40mg PO daily (7) Esophageal dysmotility: Aspiration precautions. (8) Hypothyroidism: TSH 1.31 in Aug. Continue levothyroxine 75 mcg PO daily (9) Anxiety: reduced her usual clonazepam 0.5 -> 0.25mg q12h PRN (10) DVT prophylaxis: Lovenox 40mg SQ BID Admission and Anticipated Discharge Date Admission Date: October 15, 2020 Subjective this pt was seen while laying on her side, she states she feels "ok" and was on HI flow oxygen 40 Liters 100%. She was not having diarrhea and did not have loss of taste or smell, she was able to sit at the bedside and eat, still has cough and temps to 100.8 Review of Systems Review of Systems: Moderate respiratory distress and fatigue no headache, blurry or double vision no speech or swallowing issues no chest pain, pressure or palpitations short of breath at rest and non productive cough no abdominal pain, nausea or vomiting, diarrhea or constipation no dysuria, hematuria or frequency no focal joint pain or swelling no back pain, CVA tenderness or radicular pain no bruising, bleeding or rashes no focal signs of weakness or numbness or altered sensation no complaints of anxiety or depression. Physical Exam Physical Exam: The patient appeared to be moderately ill Vital signs as documented. Head exam is normocephalic atraumatic no scleral icterus Neck is without JVD, thyromegaly, or carotid bruits. Lungs are coarse bibasilar rales Cardiac exam, Rhythm is regular.. No murmurs, rubs or gallops. Abdominal exam reveals normal bowel sounds, soft non tender, no masses Extremities are nonedematous and both pedal pulses are present Neurologic exam is alert and oriented, no focal loss of strength or sensation Skin is without bruises or rashes Psychologically is without concerns for anxiety or depression. Results & Data Results & Data ([facility]) Vital Signs (Past 12 Hours) Vital Signs Temp Pulse Pulse Pulse Resp BP Pulse Ox 10/18/20 07:26 82 22 86 L 10/18/20 05:45 98.8 F 10/18/20 03:25 100.8 F H 87 20 130/79 91 10/18/20 03:18 90 31 H 88 L 10/18/20 00:44 80 28 H 92 10/18/20 00:12 98.6 F 102 H 24 116/59 L 83 L 10/17/20 23:14 89 22 88 L 10/17/20 19:41 81 24 90 PG Care Time/CCT Total # of Minutes Spent Total Time Spent with Patient: Total time spent is greater than 50% in c oordination of care (as documented) at patient's floor/unit and/or counseling patient: Coding Level of Care Code 80342 Subseq Hosp Care Lvl 3 Diagnoses Sepsis A41.9 Sepsis acute organ dysfunction status: unspecified Sepsis type: sepsis due to unspecified organism Pneumonia due to COVID-19 virus U07.1; J12.89 Acute respiratory failure with hypoxia J96.01 Prediabetes R73.03 Hyperlipidemia E78.5 GERD (gastroesophageal reflux disease) K21.9 Esophageal dysmotility K22.4 Hypothyroidism E03.9 Anxiety F41.9 DVT prophylaxis Z29.9 (1) Sepsis Sepsis acute organ dysfunction status: unspecified Sepsis type: sepsis due to unspecified organism Qualified Code(s): A41.9 - Sepsis, unspecified organism
[2020-10-18] MEDS: ROSUVASTATIN CALCIUM 5 MG TAB PO SCH (08:30)
[2020-10-18] MEDS: CALCIUM 600MG + VIT D 400 IU TAB PO SCH ×2 (08:31→21:02)
[2020-10-18] MEDS: DEXAMETHASONE SOD PHOSPHATE 6 MG in SYRINGE 0 ML IV SCH (08:31)
[2020-10-18] MEDS: FUROSEMIDE 20 MG in SYRINGE 0 ML IV SCH (08:31)
[2020-10-18] MEDS: ENOXAPARIN INJ 40 MG/0.4 ML SYR SQ SCH ×2 (08:31→21:03)
[2020-10-18] MEDS: INSULIN ASPART 100 UNITS/ML 3 ML PEN SC SCH ×4 (09:19→21:06)
--- NOTE | 2020-10-18 10:31 | Pulmonology Progress Note ---
Date of Service October 18, 2020 Assessment & Plan (1) 2019 novel coronavirus–infected pneumonia (NCIP)#8211;infected pneumonia (NCIP): (2) Acute respiratory failure with hypoxia: Impression: 69-year-old female diagnosed with COVID-19 10/05/2020 admitted 10/15/2020 with diffuse pulmonary infiltrates and progressive hypoxemic respiratory failure. Patient continues to demonstrate significant shunt physiology with high oxygen requirement intermittently requiring high flow nasal cannula or BiPAP. Recommendations: Covid pneumonia: Patient is currently receiving therapy with remdesivir and dexamethasone per protocols. This is appropriate given the degree of hypoxemia. Recommend a 10-day course of Decadron with a possible 10-day course of remdesivir. Self proning is recommended. She says that she is going to try to prone more. Her procalcitonin has been negative. She is currently on Levaquin. This can be continued for total of 5 to 7 days for possible atypical pneumonia. Her overall fluid balance is 5.46 L positive. She is currently on a low-dose of 20 mg IV Lasix. Admission and Anticipated Discharge Date Admission Date: October 15, 2020 Subjective She denies any significant complaints currently. She does have some mild pain in her right arm where the nurses tried to place an IV. She denies any chest pain, fevers or chills. She has not been proning much, but notes that she has been "trying". Review of Systems Review of Systems: All systems reviewed & are unremarkable except as noted in HPI & below Physical Exam Constitutional: well developed, well nourished and comfortable; no acute distress Eyes: PERRL, conjunctivae normal, anicteric sclerae ENMT: external ear and nose normal, oropharynx normal Neck: trachea midline, no thyromegaly Respiratory: + cough; no respiratory distress Auscultation: lungs clear to auscultation bilaterally Cardiovascular: RRR, no murmur, no edema Gastrointestinal (Abdomen): normal bowel sounds, soft, nontender, no hepatosplenomegaly Musculoskeletal: no cyanosis or clubbing, extremities motor strength 5/5 Skin: no rashes, warm and dry Neurologic: patellar DTR's 2+ bilat, sensation intact and PERRL, EOMI, accommodation nl, no face palsy, no dysarthria Psychiatric: A+Ox3, euthymic affect Results & Data Results & Data ([facility]) Vital Signs (Past 12 Hours) Vital Signs Temp Pulse Pulse Pulse Resp BP Pulse Ox 10/18/20 07:50 98.4 F 64 20 115/65 88 L 10/18/20 07:26 82 22 86 L 10/18/20 05:45 98.8 F 10/18/20 03:25 100.8 F H 87 20 130/79 91 10/18/20 03:18 90 31 H 88 L 10/18/20 00:44 80 28 H 92 10/18/20 00:12 98.6 F 102 H 24 116/59 L 83 L 10/17/20 23:14 89 22 88 L I reviewed the vital signs, labs and imaging PG Care Time/CCT Total # of Minutes Spent Total Time Spent with Patient: Total time spent is greater than 50% in coordi nation of care (as documented) at patient's floor/unit and/or counseling patient: Coding Level of Care Code 74586 Subseq Hosp Care Lvl 3 Diagnoses 2019 novel coronavirus–infected pneumonia (NCIP)#8211;infected pneumonia (NCIP) U07.1; J12.89 Acute respiratory failure with hypoxia J96.01
[2020-10-18] MEDS ORDERED: SODIUM CHLORIDE 0.65% NA SOLN 45 ML (OCEAN) NAE PRN (10:46)
[2020-10-18] MEDS: MULTIVITAMIN TAB PO SCH (12:59)
[2020-10-18] MEDS: CHOLECALCIFEROL 1,000 UNITS 25 MCG TAB PO SCH (12:59)
[2020-10-18] MEDS: levoFLOXacin/D5W 750 MG/150 ML BAG IV SCH (15:22)
[2020-10-18] MEDS: REMDESIVIR 100 MG in SODIUM CHLORIDE 0.9% 230 ML IV SCH (21:00)
[2020-10-18] MEDS: clonazePAM 0.25 MG TAB PO PRN (21:02)
[2020-10-18] MEDS: ASPIRIN 81 MG ECTAB PO SCH (21:02)
[2020-10-18] MEDS: FLUTICASONE PROPIONATE NA SPR 16 GM BTL SCH (21:03)
[2020-10-18] MEDS: SODIUM CHLORIDE 0.9% 10ML FLUSH IV SCH (21:04)
[2020-10-19] MEDS: LEVOTHYROXINE SODIUM 75 MCG TABLET PO SCH (06:27)
[2020-10-19] MEDS: PANTOprazole 40 MG TAB PO SCH (06:27)
[2020-10-19 07:04] LABS: Creatinine Clr Calc Pharmacy 87.3 ml/min; Est GFR (African American) 101.4; Est GFR (Non-African American) 87.5
--- NOTE | 2020-10-19 07:54 | Hospitalist Progress Note ---
Date of Service October 19, 2020 Assessment & Plan (1) Sepsis: Lactate 2.2 -> 1.5 Source - COVID-19 +/- possible bacterial PNA Procalcitonin negative but given severity of illness on imaging and hypoxia with mildly increased WBC initially was also covered for bacterial pneumonia with levofloxacin. With her persistent fevers and confirmation of group c beta strep uti >100,000 poa. Pulmonary medicine requires continuation of levofloxacin for bacterial pneumonia coverage and checking a pro calcitonin. will complete 5 days and have procal in am with other labs Influenza negative Follow up blood cultures - no growth to date (2) Pneumonia due to COVID-19 virus: Continue Decadron 6 mg IV daily,LD 10/24 continue Remdesivir, LD 10/19 convalescent plasma on 10/16 on HFNC 100% FiO2 and 40L, auto prone as much as possible to reduce effects of shunt physiology pulmonary following, appreciate recommendations (3) Acute respiratory failure with hypoxia: Aim O2 sats > 90%. Currently adequate on high flow oxygen @ 40LPM, FiO2 100%. continue to prone as much as she can she needs BIPAP at night some times remains with significant oxygen requirements (4) Prediabetes: HbA1C 5.9 in May. Glucose 129 on admission. BSG ACHS and will initially use correction factor only, Novolog in case dexamethasone increases her glucose levels so far BSG have been acceptable (5) Hyperlipidemia: Continue her usual rosuvastatin dosing. (6) GERD (gastroesophageal reflux disease): Continue her usual pantoprazole 40mg PO daily (7) Esophageal dysmotility: Aspiration precautions. (8) Hypothyroidism: TSH 1.31 in Aug. Continue levothyroxine 75 mcg PO daily (9) Anxiety: reduced her usual clonazepam 0.5 -> 0.25mg q12h PRN (10) DVT prophylaxis: Lovenox 40mg SQ BID, consider increasing to therapuetic dosing if hypoxia persists Admission and Anticipated Discharge Date Admission Date: October 15, 2020 Subjective This patient had a fever today although still fairly asymptomatic with it. Once again was 100 degrees. She is found to have a group C strep UTI. To this and because of recurrent fevers despite treating her Covid almost 4 days we will amend her antibiotics in case her strep is resistant to levofloxacin for which she is on. She remains on HI flow oxygen 40 Liters 100%. She continues without having diarrhea and did not have loss of taste or smell, she was able to sit at the bedside and eat, still has cough Review of Systems Review of Systems: Moderate respiratory distress and fatigue no headache, blurry or double vision no speech or swallowing issues no chest pain, pressure or palpitations short of breath at rest and non productive cough no abdominal pain, nausea or vomiting, diarrhea or constipation no dysuria, hematuria or frequency no focal joint pain or swelling no back pain, CVA tenderness or radicular pain no bruising, bleeding or rashes no focal signs of weakness or numbness or altered sensation no complaints of anxiety or depression. Physical Exam Physical Exam: The patient appeared to be moderately ill Vital signs as documented. Head exam is normocephalic atraumatic no scleral icterus Neck is without JVD, thyromegaly, or carotid bruits. Lungs are coarse bibasilar rales Cardiac exam, Rhythm is regular.. No murmurs, rubs or gallops. Abdominal exam reveals normal bowel sounds, soft non tender, no masses Extremities are nonedematous and both pedal pulses are present Neurologic exam is alert and oriented, no focal loss of strength or sensation Skin is without bruises or rashes Psychologically is without concerns for anxiety or depression. Results & Data Results & Data ([facility]) Vital Signs (Past 12 Hours) Vital Signs Temp Pulse Pulse Pulse Resp BP BP 10/19/20 07:51 100.6 F H 97 H 21 111/84 10/19/20 07:35 71 35 H 10/19/20 04:17 98.6 F 69 22 141/87 H 10/19/20 02:10 58 L 20 10/18/20 23:46 55 L 22 10/18/20 23:34 98.4 F 60 21 122/60 Pulse Ox 10/19/20 07:51 94 10/19/20 07:35 92 10/19/20 04:17 94 10/19/20 02:10 96 10/18/20 23:46 95 10/18/20 23:34 95 PG Care Time/CCT Total # of Minutes Spent Total Time Spent with Patient: Total time spent is greater than 50% in coordination of care (as documented) at patient's floor/unit and/or counseling patient: Coding Level of Care Code 70363 Subseq Hosp Care Lvl 3 Diagnoses Sepsis A41.9 Sepsis acute organ dysfunction status: unspecified Sepsis type: sepsis due to unspecified organism Pneumonia due to COVID-19 virus U07.1; J12.89 Acute respiratory failure with hypoxia J96.01 Prediabetes R73.03 Hyperlipidemia E78.5 GERD (gastroesophageal reflux disease) K21.9 Esophageal dysmotility K22.4 Hypothyroidism E03.9 Anxiety F41.9 DVT prophylaxis Z29.9 (1) Sepsis Sepsis acute organ dysfunction status: unspecified Sepsis type: sepsis due to unspecified organism Qualified Code(s): A41.9 - Sepsis, unspecified organism
[2020-10-19] MEDS: CALCIUM 600MG + VIT D 400 IU TAB PO SCH ×2 (08:36→21:51)
[2020-10-19] MEDS: ENOXAPARIN INJ 40 MG/0.4 ML SYR SQ SCH ×2 (08:36→21:52)
[2020-10-19] MEDS: DEXAMETHASONE SOD PHOSPHATE 6 MG in SYRINGE 0 ML IV SCH (08:40)
[2020-10-19] MEDS: FUROSEMIDE 20 MG in SYRINGE 0 ML IV SCH (08:40)
[2020-10-19] MEDS: INSULIN ASPART 100 UNITS/ML 3 ML PEN SC SCH ×4 (09:59→21:55)
[2020-10-19] MEDS: MULTIVITAMIN TAB PO SCH (13:04)
[2020-10-19] MEDS: CHOLECALCIFEROL 1,000 UNITS 25 MCG TAB PO SCH (13:04)
[2020-10-19] MEDS: cefTRIAXone SODIUM 2,000 MG in DEXTROSE 5% 50 ML IV SCH (13:19)
--- NOTE | 2020-10-19 13:53 | Pulmonology Progress Note ---
Date of Service October 19, 2020 Assessment & Plan (1) 2019 novel coronavirus–infected pneumonia (NCIP)#8211;infected pneumonia (NCIP): (2) Acute respiratory failure with hypoxia: Impression: 69-year-old female diagnosed with COVID-19 10/05/2020 admitted 10/15/2020 with diffuse pulmonary infiltrates and progressive hypoxemic respiratory failure. Patient continues to demonstrate significant shunt physiology with high oxygen requirement intermittently requiring high flow nasal cannula or BiPAP. Recommendations: Covid pneumonia: Patient is currently receiving therapy with remdesivir and dexamethasone per protocols. This is appropriate given the degree of hypoxemia. Self proning is recommended. She says that she is going to try to prone more. Her procalcitonin has been negative. She has been switched back to Rocephin due to ongoing fever. I would recommend rechecking a procalcitonin level. She ideally should complete a course of 5 to 7 days of antibiotics for atypical coverage. Rocephin will not be adequate for atypical coverage. She is on low- dose diuretics. I think this could be likely switched to as needed. Her overall prognosis remains guarded. Pulmonary will follow from periphery. Please call with questions. Thank you for the consult. (3) Fever: Admission and Anticipated Discharge Date Admission Date: October 15, 2020 Subjective At the time of the exam, the patient was on BiPAP. She was actually reporting that she was feeling better. There has been no significant change in her oxygenation status. She was laying completely supine with the head of the bed at a level 0 degrees. I increase her incline to 35 degrees and asked her to keep the head of the bed elevated. She denies any chest pain, fevers or chills. She is eager to get better. Review of Systems Review of Systems: All systems reviewed & are unremarkable except as noted in HPI & below Physical Exam Constitutional: + ill appearing; no acute distress Eyes: PERRL, conjunctivae normal, anicteric sclerae ENMT: external ear and nose normal, oropharynx normal Respiratory: + cough; no respiratory distress Auscultation: lungs clear to auscultation bilaterally Cardiovascular: RRR, no murmur, no edema Chest (Breasts): normal inspection/palpation of breasts Gastrointestinal (Abdomen): normal bowel sounds, soft, nontender, no hepatosplenomegaly Skin: no rashes, warm and dry Neurologic: PERRL, EOMI, accommodation nl, no face palsy, no dysarthria Psychiatric: A+Ox3, euthymic affect Results & Data Results & Data ([place]) Vital Signs (Past 12 Hours) Vital Signs Temp Pulse Pulse Pulse Resp BP BP 10/19/20 13:00 98.2 F 99 H 18 100/49 L 10/19/20 10:42 101 H 32 H 10/19/20 08:00 87 10/19/20 07:51 100.6 F H 97 H 21 111/84 10/19/20 07:35 71 35 H 10/19/20 04:17 98.6 F 69 22 141/87 H 10/19/20 02:10 58 L 20 Pulse Ox 10/19/20 13:00 92 10/19/20 10:42 90 10/19/20 08:00 10/19/20 07:51 94 10/19/20 07:35 92 10/19/20 04:17 94 10/19/20 02:10 96 I reviewed the vital signs, labs and imaging PG Care Time/CCT Total # of Minutes Spent Total Time Spent with Patient: Total time spent is greater than 50% in coordination of care (as documented) at patient's floor/unit and/or counseling patient: Coding Level of Care Code 02157 Subseq Hosp Care Lvl 3 Diagnoses 2019 novel coronavirus–infected pneumonia (NCIP)#8211;infected pneumonia (NCIP) U07.1; J12.89 Acute respiratory failure with hypoxia J96.01 Fever R50.9
[2020-10-19] MEDS: levoFLOXacin/D5W 500 MG/100 ML BAG IV SCH (18:34)
[2020-10-19] MEDS: REMDESIVIR 100 MG in SODIUM CHLORIDE 0.9% 230 ML IV SCH (21:49)
[2020-10-19] MEDS: FLUTICASONE PROPIONATE NA SPR 16 GM BTL SCH (21:50)
[2020-10-19] MEDS: clonazePAM 0.25 MG TAB PO PRN (21:51)
[2020-10-19] MEDS: ASPIRIN 81 MG ECTAB PO SCH (21:52)
[2020-10-19] MEDS: SODIUM CHLORIDE 0.9% 10ML FLUSH IV SCH (21:53)
[2020-10-20] MEDS: LEVOTHYROXINE SODIUM 75 MCG TABLET PO SCH (06:05)
[2020-10-20] MEDS: PANTOprazole 40 MG TAB PO SCH (06:05)
[2020-10-20 07:08] LABS: Hematocrit (blood only) 39.8 % (37-47); Hemoglobin 13.3 g/dL (12.0-16.0); Mean Corpuscular Hemoglobin 31.9 pg (25-34); Mean Corpuscular Hgb Conc 33.4 g/dL (32-36); Mean Corpuscular Volume 95.4 fL (80-100); Mean Platelet Volume 10.1 fL (7.4-10.4); Platelet Count 335 K/uL (130-400); RDW Coefficient of Variation 13.6 % (11.5-14.5); RDW Standard Deviation 47.2 fL (36.4-46.3); Red Blood Count 4.17 M/uL (4.2-5.4); White Blood Count 15.02 K/uL (4.8-10.8)
[2020-10-20 07:31] LABS: BUN Creatinine Ratio 30.2 (10-20); Calcium 8.8 mg/dl (8.5-10.1); Creatinine Clr Calc Pharmacy 99.9 ml/min; Est GFR (African American) 107.4; Est GFR (Non-African American) 92.7; Potassium 3.4 mmol/L (3.5-5.1)
[2020-10-20 07:43] LABS: ALC (manual) 0.92 K/uL (1.2-3.4); Lymphocytes # (manual) 0.92 K/uL (1.2-3.4); Lymphocytes % (manual) 6.1 %; Metamyelocytes # (manual) 0.27 K/uL (0-0); Metamyelocytes % (manual) 1.8 %; Monocytes # (manual) 0.14 K/uL (0.11-0.59); Monocytes % (manual) 0.9 %; Neutrophils % (manual) 91.2 %
[2020-10-20] MEDS: INSULIN ASPART 100 UNITS/ML 3 ML PEN SC SCH ×4 (08:21→20:49)
[2020-10-20] MEDS: DEXAMETHASONE SOD PHOSPHATE 6 MG in SYRINGE 0 ML IV SCH (09:45)
[2020-10-20] MEDS: ROSUVASTATIN CALCIUM 5 MG TAB PO SCH (09:45)
[2020-10-20] MEDS: ENOXAPARIN INJ 40 MG/0.4 ML SYR SQ SCH ×2 (09:45→20:14)
[2020-10-20] MEDS: CALCIUM 600MG + VIT D 400 IU TAB PO SCH ×2 (09:45→20:09)
[2020-10-20] MEDS: MULTIVITAMIN TAB PO SCH (12:31)
[2020-10-20] MEDS: CHOLECALCIFEROL 1,000 UNITS 25 MCG TAB PO SCH (12:31)
[2020-10-20] MEDS: cefTRIAXone SODIUM 2,000 MG in DEXTROSE 5% 50 ML IV SCH (13:12)
[2020-10-20] MEDS: levoFLOXacin/D5W 500 MG/100 ML BAG IV SCH (18:04)
--- NOTE | 2020-10-20 18:46 | Hospitalist Progress Note ---
Date of Service October 20, 2020 Assessment & Plan (1) Sepsis: Lactate 2.2 -> 1.5 Source - COVID-19 +/- possible bacterial PNA Procalcitonin negative but given severity of illness on imaging and hypoxia with mildly increased WBC initially was also covered for bacterial pneumonia with levofloxacin. no additonal fevers, did start rocephin, group c beta strep uti >100,000 poa. Pulmonary medicine requires continuation of levofloxacin for bacterial pneumonia coverage and checking a pro calcitonin. will complete 5 days and have procal in am with other labs Influenza negative Follow up blood cultures - no growth to date (2) Pneumonia due to COVID-19 virus: Continue Decadron 6 mg IV daily,LD 10/24 continue Remdesivir, LD 10/19 convalescent plasma on 10/16 on HFNC 100% FiO2 and 40L, auto prone as much as possible to reduce effects of shunt physiology pulmonary following, appreciate recommendations (3) Acute respiratory failure with hypoxia: Aim O2 sats > 90%. Currently adequate on high flow oxygen @ 40LPM, FiO2 100%. continue to prone as much as she can she needs BIPAP at night some times remains with significant oxygen requirements (4) Prediabetes: HbA1C 5.9 in May. Glucose 129 on admission. BSG ACHS and will initially use correction factor only, Novolog in case dexamethasone increases her glucose levels so far BSG have been acceptable (5) Hyperlipidemia: Continue her usual rosuvastatin dosing. (6) GERD (gastroesophageal reflux disease): Continue her usual pantoprazole 40mg PO daily (7) Esophageal dysmotility: Aspiration precautions. (8) Hypothyroidism: TSH 1.31 in Aug. Continue levothyroxine 75 mcg PO daily (9) Anxiety: reduced her usual clonazepam 0.5 -> 0.25mg q12h PRN (10) DVT prophylaxis: Lovenox 40mg SQ BID Admission and Anticipated Discharge Date Admission Date: October 15, 2020 Subjective This patient had no fever since 10/19/20. She is found to have a group C strep UTI. Because of recurrent fevers despite treating her Covid almost 4 days we will amend her antibiotics in case her strep is resistant to levofloxacin for which she is on. She remains on HI flow oxygen 40 Liters 100%. She continues without having diarrhea and did not have loss of taste or smell, she was able to sit at the bedside and eat, still has cough Review of Systems Review of Systems: Moderate respiratory distress and fatigue no headache, blurry or double vision no speech or swallowing issues no chest pain, pressure or palpitations short of breath at rest and non productive cough no abdominal pain, nausea or vomiting, diarrhea or constipation no dysuria, hematuria or frequency no focal joint pain or swelling no back pain, CVA tenderness or radicular pain no bruising, bleeding or rashes no focal signs of weakness or numbness or altered sensation no complaints of anxiety or depression. Physical Exam Physical Exam: The patient appeared to be moderately ill Vital signs as documented. Head exam is normocephalic atraumatic no scleral icterus Neck is without JVD, thyromegaly, or carotid bruits. Lungs are coarse bibasilar rales Cardiac exam, Rhythm is regular.. No murmurs, rubs or gallops. Abdominal exam reveals normal bowel sounds, soft non tender, no masses Extremities are nonedematous and both pedal pulses are present Neurologic exam is alert and oriented, no focal loss of strength or sensation Skin is without bruises or rashes Psychologically is without concerns for anxiety or depression. Results & Data Results & Data ([facility]) Vital Signs (Past 12 Hours) Vital Signs Temp Pulse Pulse Resp BP BP Pulse Ox 10/20/20 17:55 97.7 F 76 24 113/62 90 10/20/20 16:00 89 10/20/20 15:35 97.7 F 81 20 140/87 88 L 10/20/20 14:41 64 24 90 10/20/20 13:15 98.8 F 85 22 141/60 H 88 L 10/20/20 11:37 77 22 89 L 10/20/20 09:11 74 22 90 10/20/20 08:00 53 L 10/20/20 07:49 98.1 F 56 L 16 127/75 96 PG Care Time/CCT Total # of Minutes Spent Total Time Spent with Patient: Total time spent is greater than 50% in coordination of care (as documented) at patient's floor/unit and/or counseling patient: Coding Level of Care Code 07746 Subseq Hosp Care Lvl 3 Diagnoses Sepsis A41.9 Sepsis acute organ dysfunction status: unspecified Sepsis type: sepsis due to unspecified organism Pneumonia due to COVID-19 virus U07.1; J12.89 Acute respiratory failure with hypoxia J96.01 Prediabetes R73.03 Hyperlipidemia E78.5 GERD (gastroesophageal reflux disease) K21.9 Esophageal dysmotility K22.4 Hypothyroidism E03.9 Anxiety F41.9 DVT prophylaxis Z29.9 (1) Sepsis Sepsis acute organ dysfunction status: unspecified Sepsis type: sepsis due to unspecified organism Qualified Code(s): A41.9 - Sepsis, unspecified organism
[2020-10-20] MEDS: ASPIRIN 81 MG ECTAB PO SCH (20:09)
[2020-10-20] MEDS: FLUTICASONE PROPIONATE NA SPR 16 GM BTL SCH (20:09)
[2020-10-21] MEDS: PANTOprazole 40 MG TAB PO SCH (05:40)
[2020-10-21] MEDS: LEVOTHYROXINE SODIUM 75 MCG TABLET PO SCH (05:40)
[2020-10-21] MEDS: INSULIN ASPART 100 UNITS/ML 3 ML PEN SC SCH ×4 (10:05→20:44)
[2020-10-21] MEDS: DEXAMETHASONE SOD PHOSPHATE 6 MG in SYRINGE 0 ML IV SCH (10:05)
[2020-10-21] MEDS: CALCIUM 600MG + VIT D 400 IU TAB PO SCH ×2 (10:05→20:19)
[2020-10-21] MEDS: ENOXAPARIN INJ 40 MG/0.4 ML SYR SQ SCH ×2 (10:06→20:19)
[2020-10-21] MEDS: cefTRIAXone SODIUM 2,000 MG in DEXTROSE 5% 50 ML IV SCH (12:43)
[2020-10-21] MEDS: CHOLECALCIFEROL 1,000 UNITS 25 MCG TAB PO SCH (16:15)
[2020-10-21] MEDS: MULTIVITAMIN TAB PO SCH (16:17)
[2020-10-21] MEDS: ACETAMINOPHEN 325 MG TAB PO PRN (16:32)
--- NOTE | 2020-10-21 18:02 | Hospitalist Progress Note ---
Date of Service October 21, 2020 Assessment & Plan (1) Sepsis: Lactate 2.2 -> 1.5 Source - COVID-19 +/- possible bacterial PNA Procalcitonin negative but given severity of illness on imaging and hypoxia with mildly increased WBC initially was also covered for bacterial pneumonia with levofloxacin(completed 5 days ). no additional fevers, did start rocephin, group c beta strep uti >100,000 poa. Pulmonary medicine requires continuation of levofloxacin for bacterial pneumonia coverage and checking a pro calcitonin. will complete 5 days and have procal in am with other labs Influenza negative Follow up blood cultures - no growth to date (2) Pneumonia due to COVID-19 virus: Continue Decadron 6 mg IV daily,LD 10/24 continue Remdesivir, LD 10/19 convalescent plasma on 10/16 support with hiflo and bipap, bipap setting 14/8, 60% auto prone as much as possible to reduce effects of shunt physiology pulmonary following, appreciate recommendations (3) Acute respiratory failure with hypoxia: Aim O2 sats > 90%. Currently adequate on high flow oxygen and bipap when sleeping continue to prone as much as she can she needs BIPAP at night some times remains with significant oxygen requirements (4) Prediabetes: HbA1C 5.9 in May. Glucose 129 on admission. BSG ACHS and will initially use correction factor only, Novolog in case dexamethasone increases her glucose levels so far BSG have been acceptable (5) Hyperlipidemia: Continue her usual rosuvastatin dosing. (6) GERD (gastroesophageal reflux disease): Continue her usual pantoprazole 40mg PO daily (7) Esophageal dysmotility: Aspiration precautions. (8) Hypothyroidism: TSH 1.31 in Aug. Continue levothyroxine 75 mcg PO daily (9) Anxiety: reduced her usual clonazepam 0.5 -> 0.25mg q12h PRN (10) DVT prophylaxis: Lovenox 40mg SQ BID Admission and Anticipated Discharge Date Admission Date: October 15, 2020 Subjective This patient remains without fever since 10/19/20. She is found to have a group C strep UTI. She remains on HI flow oxygen 40 Liters 100%. Review of Systems Review of Systems: Moderate respiratory distress and fatigue no headache, blurry or double vision no speech or swallowing issues no chest pain, pressure or palpitations short of breath at rest and non productive cough no abdominal pain, nausea or vomiting, diarrhea or constipation no dysuria, hematuria or frequency no focal joint pain or swelling no back pain, CVA tenderness or radicular pain no bruising, bleeding or rashes no focal signs of weakness or numbness or altered sensation no complaints of anxiety or depression. Physical Exam Physical Exam: The patient appeared to be moderately ill Vital signs as documented. Head exam is normocephalic atraumatic no scleral icterus Neck is without JVD, thyromegaly, or carotid bruits. Lungs are coarse bibasilar rales Cardiac exam, Rhythm is regular.. No murmurs, rubs or gallops. Abdominal exam reveals normal bowel sounds, soft non tender, no masses Extremities are nonedematous and both pedal pulses are present Neurologic exam is alert and oriented, no focal loss of strength or sensation Skin is without bruises or rashes Psychologically is without concerns for anxiety or depression. Results & Data Results & Data ([facility]) Vital Signs (Past 12 Hours) Vital Signs Temp Pulse Pulse Pulse Resp BP BP 10/21/20 15:50 98.4 F 62 22 132/69 10/21/20 13:59 64 23 10/21/20 12:17 69 20 10/21/20 12:15 98.2 F 89 18 141/84 H 10/21/20 12:07 89 24 10/21/20 11:29 98.2 F 68 18 121/75 10/21/20 08:44 97.7 F 68 18 128/69 10/21/20 08:00 72 10/21/20 07:42 78 22 Pulse Ox 10/21/20 15:50 91 10/21/20 13:59 88 L 10/21/20 12:17 80 L 10/21/20 12:15 90 10/21/20 12:07 89 L 10/21/20 11:29 93 10/21/20 08:44 95 10/21/20 08:00 10/21/20 07:42 93 PG Care Time/CCT Total # of Minutes Spent Total Time Spent with Patient: Total time spent is greater than 50% in coordination of care (as documented) at patient's floor/unit and/or counseling patient: Coding Level of Care Code 63388 Subseq Hosp Care Lvl 3 Diagnoses Sepsis A41.9 Sepsis acute organ dysfunction status: unspecified Sepsis type: sepsis due to unspecified organism Pneumonia due to COVID-19 virus U07.1; J12.89 Acute respiratory failure with hypoxia J96.01 Prediabetes R73.03 Hyperlipidemia E78.5 GERD (gastroesophageal reflux disease) K21.9 Esophageal dysmotility K22.4 Hypothyroidism E03.9 Anxiety F41.9 DVT prophylaxis Z29.9 (1) Sepsis Sepsis acute organ dysfunction status: unspecified Sepsis type: sepsis due to unspecified organism Qualified Code(s): A41.9 - Sepsis, unspecified organism
[2020-10-21] MEDS: levoFLOXacin/D5W 500 MG/100 ML BAG IV SCH (18:46)
[2020-10-21] MEDS: FLUTICASONE PROPIONATE NA SPR 16 GM BTL SCH (20:18)
[2020-10-21] MEDS: ASPIRIN 81 MG ECTAB PO SCH (20:19)
--- NOTE | 2020-10-21 23:33 | Communication Note ---
Date of Service: October 21, 2020 Code jeremie called ~[phone] regarding diminished O2 saturations in pt with PNA due to COVID-19 virus. Upon entering the room it was discovered that pt had taken BiPAP off due to concerns of not being able to catch a breath. BiPAP was quickly placed back on pt correctly and O2 saturations improved into high 90s. This was reportedly not first such occurrence like this. Due to concern of pt's possible confusion and repeat occurrences of taking BiPAP off with low respiratory reserve as evidenced by quick desaturations and lack of staffing to have 1:1 si tter, decision made to transfer pt to where pt can be placed in room with clear doors for continuous monitoring. Pt continues to be med surg status. Attending made aware of all of the above. Resident Activity Tracking Resident Involvement: Resident Care Provided Care Provided: Adult [facility]
[2020-10-22] MEDS: MELATONIN 3 MG TAB PO SCH ×2 (01:11→19:48)
[2020-10-22] MEDS: LEVOTHYROXINE SODIUM 75 MCG TABLET PO SCH (06:08)
[2020-10-22] MEDS: PANTOprazole 40 MG TAB PO SCH (06:08)
[2020-10-22] MEDS: INSULIN ASPART 100 UNITS/ML 3 ML PEN SC SCH ×4 (08:27→20:38)
[2020-10-22] MEDS: DEXAMETHASONE SOD PHOSPHATE 6 MG in SYRINGE 0 ML IV SCH (08:29)
[2020-10-22] MEDS: ENOXAPARIN INJ 40 MG/0.4 ML SYR SQ SCH ×2 (08:29→19:44)
--- NOTE | 2020-10-22 10:20 | XRay Report ---
SINGLE VIEW CHEST CLINICAL HISTORY: Hypoxia. FINDINGS: An AP, portable, upright chest radiograph is compared to chest x-ray and chest CT dated . The heart is top normal for projection. Multifocal airspace consolidation is similar to prev ious. No large pleural effusion or pneumothorax is seen. A calcified granuloma seen in the left upper lobe. The skeletal structures are osteopenic. The bony thorax is grossly intact. IMPRESSION: Multifocal airspace consolidation is similar to 10/15/2020. ACT 112: Negative or not required by law. Electronically signed by: Steven Chavez M.D. 10/22/2020 10:19 AM
[2020-10-22] MEDS: METOPROLOL TARTRATE 1 MG/ML VIAL IV PRN (11:46)
[2020-10-22] MEDS: cefTRIAXone SODIUM 2,000 MG in DEXTROSE 5% 50 ML IV SCH (11:50)
[2020-10-22] MEDS: MULTIVITAMIN TAB PO SCH (12:42)
[2020-10-22] MEDS: CHOLECALCIFEROL 1,000 UNITS 25 MCG TAB PO SCH (12:42)
[2020-10-22] MEDS: ROSUVASTATIN CALCIUM 5 MG TAB PO SCH (12:44)
[2020-10-22] MEDS: CALCIUM 600MG + VIT D 400 IU TAB PO SCH (12:45)
--- NOTE | 2020-10-22 12:58 | Electrocardiogram Report ---
Test Reason : Blood Pressure : / mmHG Vent. Rate : 117 BPM Atrial Rate : 107 BPM P-R Int : 000 ms QRS Dur : 082 ms QT Int : 318 ms P-R-T Axes : 000 036 -42 degrees QTc Int : 443 ms Poor data quality, interpretation may be adversely affected Atrial fibrillation with rapid ventricular response Nonspecific ST abnormality Abnormal ECG When compared with ECG of 15-OCT-2020 11:12, Atrial fibrillation has replaced Sinus rhythm Vent. rate has increased BY 43 BPM T wave inversion more evident in Inferior leads Confirmed by Jono Blankenship ([id number]) on 10/22/2020 12:57:47 PM Referred By: REFERRED SELF Confirmed By:Valdez Blankenship
[2020-10-22] MEDS ORDERED: FUROSEMIDE 20 MG in SYRINGE 0 ML IV ONE (15:14)
[2020-10-22] MEDS ORDERED: FUROSEMIDE 40 MG/4 ML VIAL IV STA (15:16)
--- NOTE | 2020-10-22 15:20 | Hospitalist Progress Note ---
Date of Service October 22, 2020 Assessment & Plan (1) Atrial fibrillation: Patient developed atrial fibrillation in the face of her hypoxic respiratory distress on 10/22 rate controlled with parenteral intermittent metoprolol hopeful to increase her oxygen will return her to sinus rhythm. If not she may be started on a more routine longer acting rate controlling agent. At this time she is anticoagulated with prophylactic Lovenox dosing however if she remains in atrial fibrillation for more than 24 hours we will revert to full dose therapeutic dosing, her electrolytes were not checked for some time we will check her electrolytes and magnesium (2) Pneumonia due to COVID-19 virus: Continue Decadron 6 mg IV daily,LD 10/24 continue Remdesivir, LD 10/19 convalescent plasma on 10/16 support with hiflo and bipap, bipap setting /, 60% auto prone as much as possible to reduce effects of shunt physiology pulmonary following, appreciate recommendations (3) Acute respiratory failure with hypoxia: Aim O2 sats > 90%. Currently adequate on high flow oxygen and bipap when sleeping continue to prone as much as she can she needs BIPAP intermittently throughout the day remains with significant oxygen requirements (4) Sepsis: Lactate 2.2 -> 1.5 Source - COVID-19 +/- possible bacterial PNA Procalcitonin negative but given severity of illness on imaging and hypoxia with mildly increased WBC initially was also covered for bacterial pneumonia with levofloxacin(completed 5 days ). no additional fevers, did start rocephin, group c beta strep uti >100,000 poa. Pulmonary medicine requires continuation of levofloxacin for bacterial pneumonia coverage and checking a pro calcitonin. will complete 5 days and have procal in am with other labs Influenza negative Follow up blood cultures - no growth to date Repeat chest x-ray after periods of extended BiPAP need on 10/23 shows continued bilateral groundglass infiltrates without improvement, due to increased oxygen demands patient will receive 1 dose of diuretics checking renal function in the morning (5) Prediabetes: HbA1C 5.9 in May. Glucose 129 on admission. BSG ACHS and will initially use correction factor only, Novolog in case dexamethasone increases her glucose levels so far BSG have been acceptable (6) Hyperlipidemia: Continue her usual rosuvastatin dosing. (7) GERD (gastroesophageal reflux disease): Continue her usual pantoprazole 40mg PO daily (8) Esophageal dysmotility: Aspiration precautions. (9) Hypothyroidism: TSH 1.31 in Aug. Continue levothyroxine 75 mcg PO daily (10) Anxiety: reduced her usual clonazepam 0.5 -> 0.25mg q12h PRN (11) DVT prophylaxis: Lovenox 40mg SQ BID Admission and Anticipated Discharge Date Admission Date: October 15, 2020 Subjective Patient had a code purple overnight where she took her BiPAP off in her room. She is in the room was further away from the nurses station was this was not discovered for period of time. Patient was subsequently be transferred back to a telemetry bed where she could be more visibly seen. She is regained her typical alert self temporarily being on high flow oxygen, she denies any focal complaints but she does still require BiPAP when resting Review of Systems Review of Systems: Moderate respiratory distress and fatigue no headache, blurry or double vision no speech or swallowing issues no chest pain, pressure or palpitations Continues to be short of breath at rest and non productive cough no abdominal pain, nausea or vomiting, diarrhea or constipation no dysuria, hematuria or frequency no focal joint pain or swelling no back pain, CVA tenderness or radicular pain no bruising, bleeding or rashes no focal signs of weakness or numbness or altered sensation no complaints of anxiety or depression. Physical Exam Physical Exam: The patient appeared to be moderately ill Vital signs as documented. Head exam is normocephalic atraumatic no scleral icterus Neck is without JVD, thyromegaly, or carotid bruits. Lungs are coarse bibasilar rales Cardiac exam, Rhythm is irregular regular.. Tachycardic at times, no murmurs, rubs or gallops. Abdominal exam reveals normal bowel sounds, soft non tender, no masses Extremities are nonedematous and both pedal pulses are present Neurologic exam is alert and oriented, no focal loss of strength or sensation Skin is without bruises or rashes Psychologically is without concerns for anxiety or depression. Results & Data Results & Data ([facility]) Vital Signs (Past 12 Hours) Vital Signs Temp Pulse Pulse Resp BP BP Pulse Ox 10/22/20 11:46 121 H 107/60 10/22/20 11:44 113 H 24 97 10/22/20 07:59 84 88 22 79 L 10/22/20 07:50 97.7 F 103 H 21 146/123 H 87 L 10/22/20 04:27 98.1 F 72 20 123/89 90 PG Care Time/CCT Total # of Minutes Spent Total Time Spent with Patient: Total time spent is greater than 50% in coordination of care (as documented) at patient's floor/unit and/or counseling patient: Coding Level of Care Code 07137 Subseq Hosp Care Lvl 3 Diagnoses Atrial fibrillation I48.91 Pneumonia due to COVID-19 virus U07.1; J12.89 Acute respiratory failure with hypoxia J96.01 Sepsis A41.9 Sepsis acute organ dysfunction status: unspecified Sepsis type: sepsis due to unspecified organism Prediabetes R73.03 Hyperlipidemia E78.5 GERD (gastroesophageal reflux disease) K21.9 Esophageal dysmotility K22.4 Hypothyroidism E03.9 Anxiety F41.9 DVT prophylaxis Z29.9 (1) Sepsis Sepsis acute organ dysfunction status: unspecified Sepsis type: sepsis due to unspecified organism Qualified Code(s): A41.9 - Sepsis, unspecified organism
[2020-10-22] MEDS ORDERED: METOPROLOL TARTRATE 25 MG TAB PO ONE (16:00)
[2020-10-22] MEDS ORDERED: FUROSEMIDE 40 MG/4 ML VIAL IV ONE (16:20)
[2020-10-22 16:31] LABS: BUN Creatinine Ratio 23.8 (10-20); Calcium 8.6 mg/dl (8.5-10.1); Creatinine Clr Calc Pharmacy 76.2 ml/min; Est GFR (African American) 86.5; Est GFR (Non-African American) 74.6; Magnesium 2.6 mg/dl (1.8-2.4); Potassium 4.1 mmol/L (3.5-5.1)
[2020-10-22] MEDS: guaiFENesin 600 MG TABCR PO SCH (19:43)
[2020-10-22] MEDS: FLUTICASONE PROPIONATE NA SPR 16 GM BTL SCH (19:45)
[2020-10-22] MEDS: ASPIRIN 81 MG ECTAB PO SCH (19:46)
[2020-10-23] MEDS ORDERED: LORazepam 2 MG/4 ML VIAL ONE (10:20)
[2020-10-23] MEDS ORDERED: 0.2 MICRON FILTER SET 1 EA IV ONE (12:40)
[2020-10-23] MEDS ORDERED: AMIODARONE 360MG / 200ML D5W IV ONE (12:45)
[2020-10-23] MEDS ORDERED: DIGOXIN 500 MCG in SYRINGE 8 ML IV ONE (13:15)
[2020-10-23] MEDS ORDERED: MAGNESIUM SULFATE / D5W 1 GM/100 ML BAG IV SCH (13:15)
[2020-10-23] MEDS: LEVOTHYROXINE SODIUM 75 MCG TABLET PO SCH (17:14)
[2020-10-23] MEDS: PANTOprazole 40 MG TAB PO SCH (17:14)
[2020-10-23] MEDS: ENOXAPARIN INJ 40 MG/0.4 ML SYR SQ SCH (17:15)
[2020-10-23] MEDS: DEXAMETHASONE SOD PHOSPHATE 6 MG in SYRINGE 0 ML IV SCH (17:15)
[2020-10-23] MEDS: INSULIN ASPART 100 UNITS/ML 3 ML PEN SC SCH ×4 (17:15→20:59)
[2020-10-23] MEDS: guaiFENesin 600 MG TABCR PO SCH ×2 (17:15→20:23)
[2020-10-23] MEDS: MULTIVITAMIN TAB PO SCH (17:16)
[2020-10-23] MEDS: CHOLECALCIFEROL 1,000 UNITS 25 MCG TAB PO SCH (17:16)
[2020-10-23] MEDS: cefTRIAXone SODIUM 2,000 MG in DEXTROSE 5% 50 ML IV SCH (17:16)
--- NOTE | 2020-10-23 17:33 | Hospitalist Progress Note ---
Date of Service October 23, 2020 Assessment & Plan (1) Atrial fibrillation: Patient developed atrial fibrillation in the face of her hypoxic respiratory distress on 10/22 patient persistent with tachyarrhythmia associate with hypoxia to the point where her heart rate was exceeding 200. A phone conversation with cardiology prompted the decision that institute amiodarone therapy without bolus and 1 dose of digoxin 0.5. Patient was also given 1 g of magnesium prior to understanding that her magnesium was repleted. Patient reportedly broke and became slightly bradycardic at times in a junctional rhythm but now she is bigeminy in sinus in route and around 70 bpm. Her blood pressure is much better when her heart is controlled with its rate. We did therapeutically anticoagulate her at this point time he likely will need to be anticoagulated possibly for a month we will discuss this further with cardiology (2) Pneumonia due to COVID-19 virus: Continue Decadron 6 mg IV daily,LD 10/24 continue Remdesivir, LD 10/19 convalescent plasma on 10/16 Patient has been intolerant of high flow on 10/23 we will continue BiPAP and retry this tomorrow. auto prone as much as possible to reduce effects of shunt physiology pulmonary following, appreciate recommendations (3) Acute respiratory failure with hypoxia: Aim O2 sats > 90%. Currently adequate on high flow oxygen and bipap when sleeping continue to prone as much as she can She will be maintained on BiPAP (4) Sepsis: Lactate 2.2 -> 1.5 Source - COVID-19 +/- possible bacterial PNA Procalcitonin negative but given severity of illness on imaging and hypoxia with mildly increased WBC initially was also covered for bacterial pneumonia with levofloxacin(completed 5 days ). no additional fevers, did start rocephin, group c beta strep uti >100,000 poa. Pulmonary medicine requires continuation of levofloxacin for bacterial pneumonia coverage and checking a pro calcitonin. will complete 5 days and have procal in am with other labs Influenza negative Follow up blood cultures - no growth to date Repeat chest x-ray after periods of extended BiPAP need on 10/23 shows continued bilateral groundglass infiltrates without improvement, (5) Prediabetes: HbA1C 5.9 in May. Glucose 129 on admission. BSG ACHS and will initially use correction factor only, Novolog in case dexamethasone increases her glucose levels so far BSG have been acceptable (6) Hyperlipidemia: Continue her usual rosuvastatin dosing. (7) GERD (gastroesophageal reflux disease): Continue her usual pantoprazole 40mg PO daily (8) Esophageal dysmotility: Aspiration precautions. (9) Hypothyroidism: TSH 1.31 in Aug. Continue levothyroxine 75 mcg PO daily (10) Anxiety: reduced her usual clonazepam 0.5 -> 0.25mg q12h PRN added some as needed Ativan to help with anxiety (11) DVT prophylaxis: Lovenox therapeutic Lovenox currently Admission and Anticipated Discharge Date Admission Date: October 15, 2020 Subjective Patient having significant issues coming off BiPAP with high flow nasal cannula she becomes hypoxic in which accelerates her atrial fibrillation creating hypotension. This happened on 2 occasions necessitating us to just abandon attempts at high flow today resume BiPAP and have her prone. We did also apply rate controlling agent of amiodarone and 1 dose of digoxin. The patient then broke to a sinus bradycardia type rhythm but her rhythm is now in the 70s it appears to be sinus in bigeminy her electrolytes are replete we will not attempt to have her come off BiPAP until 10/24 we did therapeutically anticoagulate her due to her history of atrial fibrillation on 10/23 Review of Systems Review of Systems: Moderate respiratory distress and fatigue no headache, blurry or double vision no speech or swallowing issues no chest pain, pressure or palpitations Continues to be short of breath at rest and non productive cough no abdominal pain, nausea or vomiting, diarrhea or constipation no dysuria, hematuria or frequency no focal joint pain or swelling no back pain, CVA tenderness or radicular pain no bruising, bleeding or rashes no focal signs of weakness or numbness or altered sensation no complaints of anxiety or depression. Physical Exam Physical Exam: The patient appeared to be moderately ill Vital signs as documented. Head exam is normocephalic atraumatic no scleral icterus Neck is without JVD, thyromegaly, or carotid bruits. Lungs are coarse bibasilar rales Cardiac exam, Rhythm is irregular regular.. Tachycardic at times, no murmurs, rubs or gallops. Abdominal exam reveals normal bowel sounds, soft non tender, no masses Extremities are nonedematous and both pedal pulses are present Neurologic exam is alert and oriented, no focal loss of strength or sensation Skin is without bruises or rashes Psychologically is without concerns for anxiety or depression. PG Care Time/CCT Total # of Minutes Spent Total Time Spent with Patient: Total time spent is greater than 50% in coordination of care (as documented) at patient's floor/unit and/or counseling patient: Coding Level of Care Code 10251 Subseq Hosp Care Lvl 3 Diagnoses Atrial fibrillation I48.91 Pneumonia due to COVID-19 virus U07.1; J12.89 Acute respiratory failure with hypoxia J96.01 Sepsis A41.9 Sepsis acute organ dysfunction status: unspecified Sepsis type: sepsis due to unspecified organism Prediabetes R73.03 Hyperlipidemia E78.5 GERD (gastroesophageal reflux disease) K21.9 Esophageal dysmotility K22.4 Hypothyroidism E03.9 Anxiety F41.9 DVT prophylaxis Z29.9 (1) Sepsis Sepsis acute organ dysfunction status: unspecified Sepsis type: sepsis due to unspecified organism Qualified Code(s): A41.9 - Sepsis, unspecified organism
[2020-10-23 17:48] LABS: BUN Creatinine Ratio 28.5 (10-20); Creatinine Clr Calc Pharmacy 75.3 ml/min; Est GFR (African American) 85.2; Est GFR (Non-African American) 73.5; Magnesium 2.2 mg/dl (1.8-2.4); Potassium 4.1 mmol/L (3.5-5.1)
[2020-10-23] MEDS: MELATONIN 3 MG TAB PO SCH (20:23)
[2020-10-23] MEDS: ASPIRIN 81 MG ECTAB PO SCH (20:23)
[2020-10-23] MEDS: FLUTICASONE PROPIONATE NA SPR 16 GM BTL SCH (20:23)
[2020-10-23] MEDS: LORazepam 0.5 MG/1 ML VIAL IV PRN (20:25)
[2020-10-23] MEDS: ENOXAPARIN 100 MG/1ML SYR SQ SCH (21:56)
--- NOTE | 2020-10-23 22:59 | Critical Care Progress Note ---
Date of Service October 23, 2020 Assessment & Plan (1) 2019 novel coronavirus–infected pneumonia (NCIP)#8211;infected pneumonia (NCIP): (2) Acute respiratory failure with hypoxia: Impression: 69-year-old female diagnosed with COVID-19 10/05/2020 admitted 10/15/2020 with diffuse pulmonary infiltrates and progressive hypoxemic respiratory failure. Patient continues to demonstrate significant shunt physiology with high oxygen requirement intermittently requiring high flow nasal cannula or BiPAP. Recommendations: Covid pneumonia: No further indication for remdesivir at this time. Steroids should be stopped after 10 days as she runs the risk of GIB, myopathy, hypergl ycemia, etc with likely minimal benefit to her pulmonary status. Recommend self proning, out of bed to chair and IS as much as possibe. Patient has not been compliant with recommendation. Recommend increasing flow rate to 60L on high flow nasal cannula with goal saturation of roughly 92-94%. I will check a pro- BNP, ESR, CRP and ferritin tomorrow morning. CXR ordered as well. Lasix can be used prn to maintain slightly negative balance daily. She is positive 6L since admission. No clear indication for abx at this time and can discontinue Rocephin. Obesity, atelectasis, V/Q mistmatch playing a large role in her hypoxia as well. Proning would be beneficial as noted above. Intubation and mechanical ventilation would likely lead to increased mortality and morbidity and should be reserved as a last line. If intubated, VV ecmo may need to be considered. Atrial fibrillation with RVR: Rates better controlled with amiodarone bolus. Likely hypoxia mediated. Cardiology consult placed by hospitalist. Unclear indication for anticoagulation as CHADS-VASC score is low. She is on a very large dose of Lovenox. Consider checking Xa levels given her obesity. Can coordinate with pharmacy. Now that her rates are better controlled, recommend echocardiogram to eval RV and LVEF. Body habitus may limit image quality. Her overall prognosis remains guarded. I again discussed code status with the patient and she indicated that she would like to remain a full code. Case discussed with hospitalist and bedside RN. Pulmonary will continue to follow. 39 min critical care time. Due to a high probability of clinically significant, life threatening deterioration, the patient required my highest level of preparedness to intervene emergently and I personally spent this critical care time directly and personally managing the patient. This critical care time included obtaining a history; examining the patient; pulse oximetry; ordering and review of studies; arranging urgent treatment with development of a management plan; evaluation of patient's response to treatment; frequent reassessment; and, discussions with other providers. (3) Fever: (4) Atrial fibrillation: (5) Hypotension: (6) Obesity (BMI 30-39.9): Admission and Anticipated Discharge Date Admission Date: October 15, 2020 Subjective Pt with mild shortness of breath at rest. Had some hypotension with AF RVR earlier in the night and morning. Bedside nurse trying to place additional IV. She was desaturing on high flow nasal cannula and thus was placed on BiPAP. She has not been self proning much. Review of Systems Review of Systems: All systems reviewed & are unremarkable except as noted in HPI & below Physical Exam Constitutional: well developed and + obese; no acute distress Eyes: PERRL, conjunctivae normal, anicteric sclerae ENMT: external ear and nose normal, oropharynx normal Respiratory: + tachypneic; no labored breathing and does not use accessory muscles Auscultation: lungs clear to auscultation bilaterally Cardiovascular: Rate/Rhythm: + tachycardic and + irregularly irregular Heart Sounds: no murmur Extremities: no edema Chest (Breasts): normal inspection/palpation of breasts Gastrointestinal (Abdomen): normal bowel sounds, soft, nontender, no hepatosplenomegaly Skin: no rashes, warm and dry Neurologic: PERRL, EOMI, accommodation nl, no face palsy, no dysarthria Psychiatric: A+Ox3, euthymic affect Results & Data Results & Data ([facility]) Vital Signs (Past 12 Hours) Vital Signs Temp Pulse Pulse Resp BP Pulse Ox 10/23/20 21:56 55 L 10/23/20 20:00 98.2 F 55 L 22 163/87 H 97 I reviewed vital signs, labs and imaging. Coding Level of Care Code Critical Care 1st 30-74 mins Diagnoses 2019 novel coronavirus–infected pneumonia (NCIP)#8211;infected pneumonia (NCIP) U07.1; J12.89 Acute respiratory failure with hypoxia J96.01 Fever R50.9 Atrial fibrillation I48.91 Hypotension I95.9 Obesity (BMI 30-39.9) E66.9 Time Spent (min) 39
[2020-10-24] MEDS: ENOXAPARIN 100 MG/1ML SYR SQ SCH ×2 (01:16→13:04)
[2020-10-24] MEDS: PANTOprazole 40 MG TAB PO SCH (05:48)
[2020-10-24] MEDS: LEVOTHYROXINE SODIUM 75 MCG TABLET PO SCH (05:48)
[2020-10-24] MEDS: AMIODARONE / D5W 360 MG/200 ML BAG IV SCH ×2 (07:37→07:40)
--- NOTE | 2020-10-24 07:59 | Hospitalist Progress Note ---
Date of Service October 24, 2020 Assessment & Plan (1) Atrial fibrillation: Patient developed atrial fibrillation in the face of her hypoxic respiratory distress on 10/22 patient persistent with tachyarrhythmia associate with hypoxia to the point where her heart rate was exceeding 200. A phone conversation with cardiology prompted the decision that institute amiodarone therapy without bolus and 1 dose of digoxin 0.5. Patient was also given 1 g of magnesium prior to understanding that her magnesium was repleted. Patient reportedly broke and became slightly bradycardic at times in a junctional rhythm but now she is bigeminy in sinus in route and around 70 bpm. Her blood pressure remained better when her heart is controlled . We did therapeutically anticoagulate her at this point time he likely will need to be anticoagulated possibly for a month but since her A. fib is of short this duration may consider discuss this further with cardiology prior to instituting oral anticoagulation therapy currently she is on Lovenox (2) Pneumonia due to COVID-19 virus: Continue Decadron 6 mg IV daily,LD 10/24 continue Remdesivir, LD 10/19 convalescent plasma on 10/16 Patient has been tolerant of short durations of high flow on 10/24 we will patric nue BiPAP and prone ventilation is much as possible to reduce effects of shunt physiology pulmonary following, appreciate recommendations (3) Acute respiratory failure with hypoxia: Aim O2 sats > 90%. Currently adequate on high flow oxygen and bipap when sleeping continue to prone as much as she can She will be maintained on BiPAP/high flow oxygen (4) Sepsis: Lactate 2.2 -> 1.5 Source - COVID-19 +/- possible bacterial PNA Procalcitonin negative but given severity of illness on imaging and hypoxia with mildly increased WBC initially was also covered for bacterial pneumonia with levofloxacin(completed 5 days ). no additional fevers, did start rocephin, group c beta strep uti >100,000 poa. completed levofloxacin for bacterial pneumonia coverage for 5 days Influenza negative Follow up blood cultures - no growth to date Repeat chest x-ray after periods of extended BiPAP need on 10/24 shows continued bilateral groundglass infiltrates without improvement, (5) Prediabetes: HbA1C 5.9 in May. Glucose 129 on admission. BSG ACHS and will initially use correction factor only, Novolog in case dexamethasone increases her glucose levels so far BSG have been acceptable (6) Hyperlipidemia: Continue her usual rosuvastatin dosing. (7) GERD (gastroesophageal reflux disease): Continue her usual pantoprazole 40mg PO daily (8) Esophageal dysmotility: Aspiration precautions. (9) Hypothyroidism: TSH 1.31 in Aug. Continue levothyroxine 75 mcg PO daily (10) Anxiety: reduced her usual clonazepam 0.5 -> 0.25mg q12h PRN added some as needed Ativan to help with anxiety (11) DVT prophylaxis: Lovenox therapeutic Lovenox currently Admission and Anticipated Discharge Date Admission Date: October 15, 2020 Subjective Patient has been able to tolerate some times of BiPAP today. However when she becomes hypoxic on high flow she accelerates her atrial fibrillation creating hypotension. He did receive amiodarone and 1 dose of digoxin on 10/23 and appears to be back in sinus rhythm on 10/24. resume BiPAP and have her prone. we did therapeutically anticoagulate her due to her history of atrial fibrillation on 10/23 Review of Systems Review of Systems: Moderate respiratory distress and fatigue no headache, blurry or double vision no speech or swallowing issues no chest pain, pressure or palpitations Continues to be short of breath at rest and non productive cough no abdominal pain, nausea or vomiting, diarrhea or constipation no dysuria, hematuria or frequency no focal joint pain or swelling no back pain, CVA tenderness or radicular pain no bruising, bleeding or rashes no focal signs of weakness or numbness or altered sensation no complaints of anxiety or depression. Physical Exam Physical Exam: The patient appeared to be moderately ill Vital signs as documented. Head exam is normocephalic atraumatic no scleral icterus Neck is without JVD, thyromegaly, or carotid bruits. Lungs are coarse bibasilar rales Cardiac exam, Rhythm is irregular regular.. Tachycardic at times, no murmurs, rubs or gallops. Abdominal exam reveals normal bowel sounds, soft non tender, no masses Extremities are nonedematous and both pedal pulses are present Neurologic exam is alert and oriented, no focal loss of strength or sensation Skin is without bruises or rashes Psychologically is without concerns for anxiety or depression. Results & Data Results & Data ([facility]) Vital Signs (Past 12 Hours) Vital Signs Temp Pulse Pulse Resp BP Pulse Ox 10/24/20 07:33 56 L 24 95 10/24/20 03:29 98.2 F 60 20 132/89 91 10/24/20 02:17 77 20 96 10/23/20 23:16 77 20 96 10/23/20 23:13 98.4 F 68 20 132/64 96 10/23/20 23:08 57 L 10/23/20 21:56 55 L 10/23/20 20:00 98.2 F 55 L 22 163/87 H 97 PG Care Time/CCT Total # of Minutes Spent Total Time Spent with Patient: Total time spent is greater than 50% in c oordination of care (as documented) at patient's floor/unit and/or counseling patient: Coding Level of Care Code 79935 Subseq Hosp Care Lvl 3 Diagnoses Atrial fibrillation I48.91 Pneumonia due to COVID-19 virus U07.1; J12.89 Acute respiratory failure with hypoxia J96.01 Sepsis A41.9 Sepsis acute organ dysfunction status: unspecified Sepsis type: sepsis due to unspecified organism Prediabetes R73.03 Hyperlipidemia E78.5 GERD (gastroesophageal reflux disease) K21.9 Esophageal dysmotility K22.4 Hypothyroidism E03.9 Anxiety F41.9 DVT prophylaxis Z29.9 (1) Sepsis Sepsis acute organ dysfunction status: unspecified Sepsis type: sepsis due to unspecified organism Qualified Code(s): A41.9 - Sepsis, unspecified organism
[2020-10-24 08:08] LABS: BUN Creatinine Ratio 27.9 (10-20); C Reactive Protein 9.67 mg/dl (0-0.29); Calcium 9.1 mg/dl (8.5-10.1); Creatinine Clr Calc Pharmacy 91.8 ml/min; Est GFR (African American) 104.7; Est GFR (Non-African American) 90.3; Potassium 3.9 mmol/L (3.5-5.1)
[2020-10-24] MEDS: guaiFENesin 600 MG TABCR PO SCH ×2 (08:24→19:27)
[2020-10-24] MEDS: INSULIN ASPART 100 UNITS/ML 3 ML PEN SC SCH ×4 (08:26→20:50)
[2020-10-24] MEDS: DEXAMETHASONE SOD PHOSPHATE 6 MG in SYRINGE 0 ML IV SCH (09:00)
--- NOTE | 2020-10-24 09:10 | XRay Report ---
XR chest 1V portable CLINICAL HISTORY: follow up viral pna and pulmonary edema COMPARISON STUDY: Chest radiograph October 22, 2020. Chest CT October 15, 2020. FINDINGS: The patient is rotated. There is no pneumothorax or pleural effusion. Moderate bilateral ai rspace opacities have increased since prior exam of October 22, 2020. Cardiomediastinal silhouette is stable. IMPRESSION: Progression of moderate bilateral airspace opacities consistent with an infectious proce ss. ACT 112: Negative or not required by law. Electronically signed by: Israel Gar M.D. 10/24/2020 9:09 AM
--- NOTE | 2020-10-24 12:52 | Pulmonology Progress Note ---
Date of Service October 24, 2020 Assessment & Plan (1) 2019 novel coronavirus–infected pneumonia (NCIP)#8211;infected pneumonia (NCIP): (2) Acute respiratory failure with hypoxia: Impression: 69-year-old female diagnosed with COVID-19 10/05/2020 admitted 10/15/2020 with diffuse pulmonary infiltrates and progressive hypoxemic respiratory failure. Patient continues to demonstrate significant shunt physiology with high oxygen requirement intermittently requiring high flow nasal cannula or BiPAP. Recommendations: Covid pneumonia: No further indication for remdesivir at this time. She has completed her course of Decadron. Continue self proning, out of bed to chair and incentive spirometry. Patient is more compliant with therapy today. Recommend increasing flow rate to 60L on high flow nasal cannula with goal saturation of roughly 92-94%. I discussed this with the respiratory therapist. We will have her bring in a ventilator to allow for flow rates up to 60 L via nasal cannula. Chest x-ray is mildly worse. Ferritin level continues to be elevated. ESR is elevated. proBNP within normal limits. Lasix can be used prn to maintain slightly negative balance daily. No clear indication for any further antibiotics at this time. Obesity, atelectasis, V/Q mistmatch playing a large role in her hypoxia as well. Proning would be beneficial as noted above. Intubation and mechanical ventilation would likely lead to increased mortality and morbidity and should be reserved as a last line. If intubated, VV ecmo may need to be considered. She is on high doses of Lovenox. Consider checking Xa levels given her obesity. Atrial fibrillation with RVR: Heart rates are much better controlled today. This appears to be hypoxia mediated. Her overall prognosis remains guarded. Pulmonary will continue to follow. (3) Fever: (4) Atrial fibrillation: (5) Hypotension: (6) Obesity (BMI 30-39.9): Admission and Anticipated Discharge Date Admission Date: October 15, 2020 Subjective Patient seen and examined this afternoon. She is self proning currently. She denies any significant shortness of breath. She notes that her appetite is poor and that she has not been eating well in the morning. Her cough is mild and dry. She is currently on BiPAP. I had a discussion with the bedside nurse, respiratory therapist and the hospitalist. The nurse indicated that the patient desaturates to 78% on high flow nasal cannula. She has been on BiPAP since 9 AM. Review of Systems Review of Systems: All systems reviewed & are unremarkable except as noted in HPI & below Physical Exam Constitutional: well developed and + obese; no acute distress Eyes: PERRL, conjunctivae normal, anicteric sclerae ENMT: external ear and nose normal, oropharynx normal Respiratory: + tachypneic; no labored breathing and does not use accessory muscles Auscultation: lungs clear to auscultation bilaterally Cardiovascular: Rate/Rhythm: + tachycardic and + irregularly irregular Heart Sounds: no murmur Extremities: no edema Chest (Breasts): normal inspection/palpation of breasts Gastrointestinal (Abdomen): normal bowel sounds, soft, nontender, no hepatosplenomegaly Skin: no rashes, warm and dry Neurologic: PERRL, EOMI, accommodation nl, no face palsy, no dysarthria Psychiatric: A+Ox3, euthymic affect Results & Data Results & Data ([facility]) Vital Signs (Past 12 Hours) Vital Signs Temp Pulse Pulse Pulse Resp BP Pulse Ox 10/24/20 12:38 100 H 30 H 88 L 10/24/20 11:57 81 24 94 10/24/20 11:31 99.5 F 65 26 H 146/74 H 95 10/24/20 09:10 56 L 10/24/20 08:40 71 18 90 10/24/20 08:20 74 26 H 10/24/20 08:01 97.7 F 77 27 H 146/79 H 95 10/24/20 07:33 56 L 24 95 10/24/20 03:29 98.2 F 60 20 132/89 91 10/24/20 02:17 77 20 96 Vital signs reviewed. Chest x-ray with progression of bilateral airspace opacities. proBNP within normal limits. PG Care Time/CCT Total # of Minutes Spent Total Time Spent with Patient: Total time spent is greater than 50% in coordination of care (as documented) at patient's floor/unit and/or counseling patient: Coding Level of Care Code 77154 Subseq Hosp Care Lvl 3 Diagnoses 2019 novel coronavirus–infected pneumonia (NCIP)#8211;infected pneumonia (NCIP) U07.1; J12.89 Acute respiratory failure with hypoxia J96.01 Fever R50.9 Atrial fibrillation I48.91 Hypotension I95.9 Obesity (BMI 30-39.9) E66.9
[2020-10-24] MEDS: MULTIVITAMIN TAB PO SCH (13:02)
[2020-10-24] MEDS: CHOLECALCIFEROL 1,000 UNITS 25 MCG TAB PO SCH (13:04)
[2020-10-24] MEDS: FLUTICASONE PROPIONATE NA SPR 16 GM BTL SCH (19:27)
[2020-10-24] MEDS: ASPIRIN 81 MG ECTAB PO SCH (19:27)
[2020-10-24] MEDS: MELATONIN 3 MG TAB PO SCH (19:27)
[2020-10-25] MEDS: ENOXAPARIN 100 MG/1ML SYR SQ SCH ×2 (01:26→14:43)
[2020-10-25] MEDS: PANTOprazole 40 MG TAB PO SCH (06:14)
[2020-10-25] MEDS: LEVOTHYROXINE SODIUM 75 MCG TABLET PO SCH (06:14)
[2020-10-25] MEDS: INSULIN ASPART 100 UNITS/ML 3 ML PEN SC SCH ×4 (07:49→20:56)
[2020-10-25] MEDS: guaiFENesin 600 MG TABCR PO SCH ×2 (07:56→20:50)
[2020-10-25] MEDS: ROSUVASTATIN CALCIUM 5 MG TAB PO SCH (07:56)
[2020-10-25] MEDS: ACETAMINOPHEN 325 MG TAB PO PRN (10:05)
[2020-10-25] MEDS: CHOLECALCIFEROL 1,000 UNITS 25 MCG TAB PO SCH (12:13)
[2020-10-25] MEDS: MULTIVITAMIN TAB PO SCH (12:13)
--- NOTE | 2020-10-25 15:56 | Hospitalist Progress Note ---
Date of Service October 25, 2020 Assessment & Plan (1) Atrial fibrillation: Patient developed atrial fibrillation in the face of her hypoxic respiratory distress on 10/22 patient persistent with tachyarrhythmia associate with hypoxia to the point where her heart rate was exceeding 200. A phone conversation with cardiology prompted the decision that institute amiodarone therapy without bolus and 1 dose of digoxin 0.5. Patient was also given 1 g of magnesium prior to understanding that her magnesium was repleted. Patient reportedly broke and became slightly bradycardic at times in a junctional rhythm HR well controlled today continue full anticoagulation not currently on any rate or rhythm control medications continue to monitor on tele (2) Pneumonia due to COVID-19 virus: Continue Decadron 6 mg IV daily, will resume since she remains on HFNC treated with Remdesivir, LD 10/19 convalescent plasma on 10/16 Patient has been tolerant of short durations of high flow on 10/24 we will continue BiPAP and prone ventilation is much as possible to reduce effects of shunt physiology pulmonary following, appreciate recommendations she is on 60L and 100% FiO2, saturations 86-88% when sitting up, improved when prone she is eating okay prognosis remains guarded (3) Acute respiratory failure with hypoxia: Aim O2 sats > 90%. Currently adequate on high flow oxygen and bipap when sleeping continue to prone as much as she can She will be maintained on BiPAP/high flow oxygen (4) Sepsis: Lactate 2.2 -> 1.5 Source - COVID-19 +/- possible bacterial PNA Procalcitonin negative but given severity of illness on imaging and hypoxia with mildly increased WBC initially was also covered for bacterial pneumonia with levofloxacin(completed 5 days ). no additional fevers, did start rocephin, group c beta strep uti >100,000 poa. completed levofloxacin for bacterial pneumonia coverage for 5 days Influenza negative Follow up blood cultures - no growth to date Repeat chest x-ray after periods of extended BiPAP need on 10/24 shows continued bilateral groundglass infiltrates without improvement, (5) Prediabetes: HbA1C 5.9 in May. Glucose 129 on admission. BSG ACHS and will initially use correction factor only, Novolog in case dexamethasone increases her glucose levels so far BSG have been acceptable (6) Hyperlipidemia: Continue her usual rosuvastatin dosing. (7) GERD (gastroesophageal reflux disease): Continue her usual pantoprazole 40mg PO daily (8) Esophageal dysmotility: Aspiration precautions. (9) Hypothyroidism: TSH 1.31 in Aug. Continue levothyroxine 75 mcg PO daily (10) Anxiety: reduced her usual clonazepam 0.5 -> 0.25mg q12h PRN added some as needed Ativan to help with anxiety (11) DVT prophylaxis: Lovenox therapeutic Lovenox currently Admission and Anticipated Discharge Date Admission Date: October 15, 2020 Subjective patient sitting up in chair, saturations 87% on HFNC 60L and 100% no dyspnea, no distress at all reviewed pulmonary recommendations with her stressed importance of laying prone, said she will continue to be compliant she is eating fairly well, no fever despite being so hypoxic, she feels strong, says she would like to take a walk in the hallway explained that she is on too much oxygen, will need to be patient Review of Systems Review of Systems: All systems reviewed & are unremarkable except as noted in Subjective Respiratory: + cough and + dyspnea on exertion Physical Exam Constitutional: well developed, well nourished and comfortable; no acute distress Neck: trachea midline, no thyromegaly Respiratory: + labored breathing and + tachypneic; no respiratory distress and no cough Auscultation: lungs clear to auscultation bilaterally Cardiovascular: RRR, no murmur, no edema Gastrointestinal (Abdomen): normal bowel sounds, soft, nontender, no hepatosplenomegaly Musculoskeletal: no cyanosis or clubbing, extremities motor strength 5/5 Skin: no rashes, warm and dry Neurologic: patellar DTR's 2+ bilat, sensation intact and PERRL, EOMI, accommodation nl, no face palsy, no dysarthria Psychiatric: A+Ox3, euthymic affect Results & Data Results & Data ([facility]) Vital Signs (Past 12 Hours) Vital Signs Temp Pulse Pulse Resp BP BP Pulse Ox 10/25/20 15:36 37.1 C 78 18 147/83 H 87 L 10/25/20 12:04 37.5 C 82 20 115/66 100 10/25/20 11:53 65 18 88 L 10/25/20 09:00 54 L 10/25/20 08:40 68 22 90 10/25/20 08:07 36.6 C 60 22 115/66 100 10/25/20 07:46 56 L 21 89 L 10/25/20 04:10 37.1 C 61 20 124/66 94 Laboratory Results Laboratory Results - last 24 hr 10/23/20 10/25/20 10/25/20 07:21 07:48 11:50 POC Glucose 115 H 90 115 H 10/25/20 10/25/20 16:28 20:11 POC Glucose 116 H 146 H Medications Administered Current Inpatient Medications Acetaminophen (Acetaminophen 325 Mg Tab) 650 mg PO Q4H PRN PRN Reason: Pain or Fever Stop: 11/14/20 20:32 Last Admin: 10/25/20 10:05 Dose: 650 mg Documented by: Al Hydrox/Mg Hydrox/Simethicone (Aluminum/Magnesium Susp 30 Ml Udc) 15 ml PO Q4H PRN PRN Reason: Dyspepsia Stop: 11/14/20 20:32 Aspirin (Aspirin 81 Mg Ectab) 81 mg PO [facility] Stop: 11/14/20 20:59 Last Admin: 10/25/20 20:50 Dose: 81 mg Documented by: Clonazepam (Clonazepam 0.25 Mg Tab) 0.25 mg PO BID PRN PRN Reason: anxiety Stop: 11/14/20 20:32 Last Admin: 10/19/20 21:51 Dose: 0.25 mg Documented by: Dextrose (Dextrose 50% 50 Ml Syringe) 25 - 50 ml IV UD PRN; Protocol PRN Reason: Hypoglycemia Protocol Stop: 11/14/20 20:32 Enoxaparin Sodium (Enoxaparin 100 Mg/1ml Syr) 100 mg SQ Q12H [facility] Stop: 11/22/20 13:14 Last Admin: 10/25/20 14:43 Dose: 100 mg Documented by: Fluticasone Propionate (Fluticasone Propionate Na Spr 16 Gm Btl) 2 sprays NA HS [facility] Stop: 11/17/20 20:59 Last Admin: 10/25/20 20:50 Dose: 2 sprays Documented by: Glucagon (Glucagon For Inj 1 Mg Vial) 1 mg SQ UD PRN; Protocol PRN Reason: Hypoglycemia Protocol Stop: 11/14/20 20:32 Glucose (Glucose 10 Tabs/Tube) 4 - 8 tabs PO UD PRN; Protocol PRN Reason: Hypoglycemia Protocol Stop: 11/14/20 20:32 Glucose (Glucose 40% Gel 15 Gm Tube) 15 - 30 gm PO UD PRN; Protocol PRN Reason: Hypoglycemia Protocol Stop: 11/14/20 20:32 Guaifenesin (Guaifenesin 600 Mg Tabcr) 1,200 mg PO Q12 [facility] Stop: 11/21/20 20:59 Last Admin: 10/25/20 20:50 Dose: 1,200 mg Documented by: Lorazepam (Ativan) 0.5 mg in 1 mls @ 1 mls/min IV Q4H PRN PRN Reason: Anxiety Stop: 11/22/20 09:41 Last Admin: 10/23/20 20:25 Dose: 1 mls/min Documented by: Insulin Aspart (Insulin Aspart 100 Units/Ml 3 Ml Pen) 0 units SC ACHS [facility] Stop: 11/14/20 20:32 Last Admin: 10/25/20 20:56 Dose: 1 units Documented by: Levothyroxine Sodium (Levothyroxine Sodium 75 Mcg Tablet) 75 mcg PO DAILYBB [facility] Stop: 11/15/20 06:29 Last Admin: 10/25/20 06:14 Dose: 75 mcg Documented by: Melatonin (Melatonin 3 Mg Tab) 3 mg PO HS [facility] Stop: 11/20/20 23:04 Last Admin: 10/25/20 20:49 Dose: 3 mg Documented by: Meloxicam (Meloxicam 7.5 Mg Tab) 15 mg PO DAILY PRN PRN Reason: Pain Stop: 11/14/20 20:32 Last Admin: 10/16/20 08:58 Dose: 15 mg Documented by: Metoprolol Tartrate (Metoprolol Tartrate 1 Mg/Ml Vial) 5 mg IV Q4 PRN PRN Reason: sbp> 185, dbp >95, HR >120 Stop: 11/21/20 11:26 Last Admin: 10/22/20 11:46 Dose: 5 mg Documented by: Miscellaneous (Carbohydrates For Hypoglycemia ) 15 - 30 gm PO UD PRN PRN Reason: Hypoglycemia Protocol Stop: 11/14/20 20:32 Multivitamins (Multivitamin Tab) 1 tab PO 1200 [facility] Stop: 11/15/20 11:59 Last Admin: 10/25/20 12:13 Dose: 1 tab Documented by: Ondansetron HCl (Ondansetron 4 Mg Od Tab) 4 mg PO Q8H PRN PRN Reason: nausea Stop: 11/14/20 20:53 Last Admin: 10/17/20 22:46 Dose: 4 mg Documented by: Pantoprazole Sodium (Pantoprazole 40 Mg Tab) 40 mg PO DAILYBB [facility] Stop: 11/15/20 06:29 Last Admin: 10/25/20 06:14 Dose: 40 mg Documented by: Polyethylene Glycol (Polyethylene (Miralax) 17 Gm Pack) 17 gm PO DAILY PRN PRN Reason: Constipation Stop: 11/14/20 20:32 Rosuvastatin Calcium (Rosuvastatin Calcium 5 Mg Tab) 5 mg PO MoWeFr@0900 [facility] Stop: 11/17/20 08:59 Last Admin: 10/25/20 07:56 Dose: 5 mg Documented by: Sodium Chloride (Sodium Chloride 0.65% Na Soln 45 Ml ([place])) 2 sprays ABRAHAN QID PRN PRN Reason: Congestion Stop: 11/17/20 10:45 Last Admin: 10/18/20 14:56 Dose: 2 sprays Documented by: Vitamin D (Cholecalciferol 1,000 Units 25 Mcg Tab) 2,000 units PO DAILY@1200 [facility] Stop: 11/15/20 11:59 Last Admin: 10/25/20 12:13 Dose: 2,000 units Documented by: PG Care Time/CCT Total # of Minutes Spent Total Time Spent with Patient: Total time spent is greater than 50% in coordination of care (as documented) at patient's floor/unit and/or counseling patient: Coding Level of Care Code 97098 Subseq Hosp Care Lvl 2 Diagnoses Atrial fibrillation I48.91 Pneumonia due to COVID-19 virus U07.1; J12.89 Acute respiratory failure with hypoxia J96.01 Sepsis A41.9 Sepsis acute organ dysfunction status: unspecified Sepsis type: sepsis due to unspecified organism Prediabetes R73.03 Hyperlipidemia E78.5 GERD (gastroesophageal reflux disease) K21.9 Esophageal dysmotility K22.4 Hypothyroidism E03.9 Anxiety F41.9 DVT prophylaxis Z29.9 (1) Sepsis Sepsis acute organ dysfunction status: unspecified Sepsis type: sepsis due to unspecified organism Qualified Code(s): A41.9 - Sepsis, unspecified organism
[2020-10-25] MEDS: MELATONIN 3 MG TAB PO SCH (20:49)
[2020-10-25] MEDS: ASPIRIN 81 MG ECTAB PO SCH (20:50)
[2020-10-25] MEDS: FLUTICASONE PROPIONATE NA SPR 16 GM BTL SCH (20:50)
[2020-10-26] MEDS: ENOXAPARIN 100 MG/1ML SYR SQ SCH ×2 (00:58→12:30)
[2020-10-26] MEDS: PANTOprazole 40 MG TAB PO SCH (05:06)
[2020-10-26] MEDS: LEVOTHYROXINE SODIUM 75 MCG TABLET PO SCH (05:06)
[2020-10-26 06:57] LABS: BUN Creatinine Ratio 18.7 (10-20); Calcium 8.4 mg/dl (8.5-10.1); Creatinine Clr Calc Pharmacy 108.2 ml/min; Est GFR (African American) 110.4; Est GFR (Non-African American) 95.3; Potassium 4.2 mmol/L (3.5-5.1)
[2020-10-26] MEDS: guaiFENesin 600 MG TABCR PO SCH ×2 (07:35→20:01)
[2020-10-26] MEDS: dexAMETHasone 6 MG in SYRINGE 0 ML IV SCH (08:37)
[2020-10-26] MEDS: INSULIN ASPART 100 UNITS/ML 3 ML PEN SC SCH ×4 (09:49→22:10)
--- NOTE | 2020-10-26 09:57 | Hospitalist Progress Note ---
Date of Service October 26, 2020 Assessment & Plan (1) Atrial fibrillation: Patient developed atrial fibrillation in the face of her hypoxic respiratory distress on 10/22 cardiology recommended amiodarone therapy without bolus and 1 dose of digoxin 0.5. Patient reportedly broke and became slightly bradycardic at times in a junctional rhythm HR well controlled today continue full anticoagulation not currently on any rate or rhythm control medications continue to monitor on tele, rate in 60's (2) Pneumonia due to COVID-19 virus: Continue Decadron 6 mg IV daily, will resume since she remains on HFNC treated with Remdesivir, LD 10/19 convalescent plasma on 10/16 Patient has been tolerant of short durations of high flow on 10/24 we will continue BiPAP and prone ventilation is much as possible to reduce effects of shunt physiology unsure of what else to do to improve saturations remains on BIPAP all day, unlikely that intubation and ventilation would improve clinical picture CXR with persistent infiltrates, ARDS picture ABG with PaO2 69 on 100% FiO2 prognosis remains guarded will add gentle IV fluids as not drinking/eating today (3) Acute respiratory failure with hypoxia: Aim O2 sats > 90%. Currently adequate BIPAP with 100% FiO2 continue to prone as much as she can see above (4) Sepsis: Lactate 2.2 -> 1.5 Source - COVID-19 +/- possible bacterial PNA Procalcitonin negative but given severity of illness on imaging and hypoxia with mildly increased WBC initially was also covered for bacterial pneumonia with levofloxacin(completed 5 days ). no additional fevers, did start rocephin, group c beta strep uti >100,000 poa. completed levofloxacin for bacterial pneumonia coverage for 5 days Influenza negative Follow up blood cultures - no growth to date (5) Prediabetes: HbA1C 5.9 in May. Glucose 129 on admission. BSG ACHS and will initially use correction factor only, Novolog in case dexamethasone increases her glucose levels so far BSG have been acceptable (6) Hyperlipidemia: Continue her usual rosuvastatin dosing. (7) GERD (gastroesophageal reflux disease): Continue her usual pantoprazole 40mg PO daily (8) Esophageal dysmotility: Aspiration precautions. (9) Hypothyroidism: TSH 1.31 in Aug. Continue levothyroxine 75 mcg PO daily (10) Anxiety: reduced her usual clonazepam 0.5 -> 0.25mg q12h PRN added some as needed Ativan to help with anxiety (11) DVT prophylaxis: Lovenox therapeutic Lovenox currently Admission and Anticipated Discharge Date Admission Date: October 15, 2020 Subjective patient requiring BIPAP all day today, no distress and no dyspnea could not keep saturations > 90% on high flow not eating very well since she is on BIPAP got a CXR today, continues to show diffuse infiltrates, ARDS ABG with PaO2 69, CO2 41, pH 7.46 unsure of what could improve saturations at this point besides laying prone or on her side she has been requiring HFNC or BIPAP for 11 days now Review of Systems Review of Systems: All systems reviewed & are unremarkable except as noted in Subjective Respiratory: + dyspnea and + dyspnea on exertion Physical Exam Constitutional: well developed, well nourished and comfortable; no acute distress Neck: trachea midline, no thyromegaly Respiratory: + labored breathing and + tachypneic; no respiratory distress and no cough Auscultation: lungs clear to auscultation bilaterally Cardiovascular: RRR, no murmur, no edema Gastrointestinal (Abdomen): normal bowel sounds, soft, nontender, no hepatosplenomegaly Musculoskeletal: no cyanosis or clubbing, extremities motor strength 5/5 Skin: no rashes, warm and dry Neurologic: patellar DTR's 2+ bilat, sensation intact and PERRL, EOMI, accommodation nl, no face palsy, no dysarthria Psychiatric: A+Ox3, euthymic affect Results & Data Results & Data ([facility]) Vital Signs (Past 12 Hours) Vital Signs Temp Pulse Pulse Pulse Resp BP Pulse Ox 10/26/20 07:44 36.4 C L 76 17 126/59 L 91 10/26/20 07:22 66 24 88 L 10/26/20 07:04 64 10/26/20 04:00 37 C 75 22 144/77 H 89 L 10/26/20 03:28 80 26 H 92 10/26/20 00:00 79 10/25/20 23:29 37.6 C H 87 24 114/79 92 10/25/20 22:57 84 26 H 90 Laboratory Results Laboratory Results - last 24 hr 10/25/20 10/26/20 10/26/20 20:11 05:55 07:40 ABG pH ABG pCO2 ABG pO2 ABG HCO3 ABG O2 Saturation ABG Base Excess Kishan Test Barometric Pressure Oxygen Given Sodium 137 Potassium 4.2 Chloride 104 Carbon Dioxide 29 Anion Gap 4.0 BUN 11 Creatinine 0.57 L Est Cr Clr Drug Dosing 108.2 Est GFR ( Amer) 110.4 Est GFR (Non-Af Amer) 95.3 BUN/Creatinine Ratio 18.7 Glucose 109 H POC Glucose 146 H 104 H Calcium 8.4 L 10/26/20 10/26/20 10/26/20 10:22 11:38 16:17 ABG pH 7.46 H ABG pCO2 41 ABG pO2 69 L ABG HCO3 28 H ABG O2 Saturation 94.7 ABG Base Excess 4.1 H Kishan Test Pos Barometric Pressure 731.7 Oxygen Given 100 FI O2 Sodium Potassium Chloride Carbon Dioxide Anion Gap BUN Creatinine Est Cr Clr Drug Dosing Est GFR ( Amer) Est GFR (Non-Af Amer) BUN/Creatinine Ratio Glucose POC Glucose 153 H 234 H Calcium Medications Administered Current Inpatient Medications Acetaminophen (Acetaminophen 325 Mg Tab) 650 mg PO Q4H PRN PRN Reason: Pain or Fever Stop: 11/14/20 20:32 Last Admin: 10/25/20 10:05 Dose: 650 mg Documented by: Al Hydrox/Mg Hydrox/Simethicone (Aluminum/Magnesium Susp 30 Ml Udc) 15 ml PO Q4H PRN PRN Reason: Dyspepsia Stop: 11/14/20 20:32 Aspirin (Aspirin 81 Mg Ectab) 81 mg PO HS [facility] Stop: 11/14/20 20:59 Last Admin: 10/25/20 20:50 Dose: 81 mg Documented by: Clonazepam (Clonazepam 0.25 Mg Tab) 0.25 mg PO BID PRN PRN Reason: anxiety Stop: 11/14/20 20:32 Last Admin: 10/19/20 21:51 Dose: 0.25 mg Documented by: Dextrose (Dextrose 50% 50 Ml Syringe) 25 - 50 ml IV UD PRN; Protocol PRN Reason: Hypoglycemia Protocol Stop: 11/14/20 20:32 Enoxaparin Sodium (Enoxaparin 100 Mg/1ml Syr) 100 mg SQ Q12H [facility] Stop: 11/22/20 13:14 Last Admin: 10/26/20 12:30 Dose: 100 mg Documented by: Fluticasone Propionate (Fluticasone Propionate Na Spr 16 Gm Btl) 2 sprays NA HS REPLACED BY [facility] Stop: 11/17/20 20:59 Last Admin: 10/25/20 20:50 Dose: 2 sprays Documented by: Glucagon (Glucagon For Inj 1 Mg Vial) 1 mg SQ UD PRN; Protocol PRN Reason: Hypoglycemia Protocol Stop: 11/14/20 20:32 Glucose (Glucose 10 Tabs/Tube) 4 - 8 tabs PO UD PRN; Protocol PRN Reason: Hypoglycemia Protocol Stop: 11/14/20 20:32 Glucose (Glucose 40% Gel 15 Gm Tube) 15 - 30 gm PO UD PRN; Protocol PRN Reason: Hypoglycemia Protocol Stop: 11/14/20 20:32 Guaifenesin (Guaifenesin 600 Mg Tabcr) 1,200 mg PO Q12 [facility] Stop: 11/21/20 20:59 Last Admin: 10/26/20 07:35 Dose: 1,200 mg Documented by: Lorazepam (Ativan) 0.5 mg in 1 mls @ 1 mls/min IV Q4H PRN PRN Reason: Anxiety Stop: 11/22/20 09:41 Last Admin: 10/23/20 20:25 Dose: 1 mls/min Documented by: Dexamethasone 6 mg/ Syringe 1.5 mls @ 1 mls/min IV QAM REPLACED BY [facility] Stop: 11/25/20 08:59 Last Admin: 10/26/20 08:37 Dose: 1 mls/min Documented by: Dextrose/Sodium Chloride (D5w And 1/2nss) 1,000 mls @ 80 mls/hr IV .[id number] REPLACED BY [facility] Stop: 11/25/20 09:59 Last Admin: 10/26/20 10:15 Dose: 80 mls/hr Documented by: Insulin Aspart (Insulin Aspart 100 Units/Ml 3 Ml Pen) 0 units SC ACHS REPLACED BY [facility] Stop: 11/14/20 20:32 Last Admin: 10/26/20 12:29 Dose: 1 units Documented by: Levothyroxine Sodium (Levothyroxine Sodium 75 Mcg Tablet) 75 mcg PO DAILYBB REPLACED BY [facility] Stop: 11/15/20 06:29 Last Admin: 10/26/20 05:06 Dose: 75 mcg Documented by: Melatonin (Melatonin 3 Mg Tab) 3 mg PO HS REPL[facility]ED BY [facility] Stop: 11/20/20 23:04 Last Admin: 10/25/20 20:49 Dose: 3 mg Documented by: Meloxicam (Meloxicam 7.5 Mg Tab) 15 mg PO DAILY PRN PRN Reason: Pain Stop: 11/14/20 20:32 Last Admin: 10/16/20 08:58 Dose: 15 mg Documented by: Metoprolol Tartrate (Metoprolol Tartrate 1 Mg/Ml Vial) 5 mg IV Q4 PRN PRN Reason: sbp> 185, dbp >95, HR >120 Stop: 11/21/20 11:26 Last Admin: 10/22/20 11:46 Dose: 5 mg Documented by: Miscellaneous (Carbohydrates For Hypoglycemia ) 15 - 30 gm PO UD PRN PRN Reason: Hypoglycemia Protocol Stop: 11/14/20 20:32 Multivitamins (Multivitamin Tab) 1 tab PO 1200 [facility] Stop: 11/15/20 11:59 Last Admin: 10/26/20 11:04 Dose: 1 tab Documented by: Ondansetron HCl (Ondansetron 4 Mg Od Tab) 4 mg PO Q8H PRN PRN Reason: nausea Stop: 11/14/20 20:53 Last Admin: 10/17/20 22:46 Dose: 4 mg Documented by: Pantoprazole Sodium (Pantoprazole 40 Mg Tab) 40 mg PO DAILYBB REPLACED BY [facility] Stop: 11/15/20 06:29 Last Admin: 10/26/20 05:06 Dose: 40 mg Documented by: Polyethylene Glycol (Polyethylene (Miralax) 17 Gm Pack) 17 gm PO DAILY PRN PRN Reason: Constipation Stop: 11/14/20 20:32 Rosuvastatin Calcium (Rosuvastatin Calcium 5 Mg Tab) 5 mg PO MoWeFr@0900 REPLACED BY [facility] Stop: 11/17/20 08:59 Last Admin: 10/25/20 07:56 Dose: 5 mg Documented by: Sodium Chloride (Sodium Chloride 0.65% Na Soln 45 Ml ([place])) 2 sprays ABRAHAN QID PRN PRN Reason: Congestion Stop: 11/17/20 10:45 Last Admin: 10/18/20 14:56 Dose: 2 sprays Documented by: Vitamin D (Cholecalciferol 1,000 Units 25 Mcg Tab) 2,000 units PO DAILY@1200 [facility] Stop: 11/15/20 11:59 Last Admin: 10/26/20 11:04 Dose: 2,000 units Documented by: PG Care Time/CCT Total # of Minutes Spent Total Time Spent with Patient: Total time spent is greater than 50% in coordination of care (as documented) at patient's floor/unit and/or counseling patient: Coding Level of Care Code 37827 Subseq Hosp Care Lvl 3 Diagnoses Atrial fibrillation I48.91 Pneumonia due to COVID-19 virus U07.1; J12.89 Acute respiratory failure with hypoxia J96.01 Sepsis A41.9 Sepsis acute organ dysfunction status: unspecified Sepsis type: sepsis due to unspecified organism Prediabetes R73.03 Hyperlipidemia E78.5 GERD (gastroesophageal reflux disease) K21.9 Esophageal dysmotility K22.4 Hypothyroidism E03.9 Anxiety F41.9 DVT prophylaxis Z29.9 (1) Sepsis Sepsis acute organ dysfunction status: unspecified Sepsis type: sepsis due to unspecified organism Qualified Code(s): A41.9 - Sepsis, unspecified organism
[2020-10-26] MEDS: D5W AND 1/2NSS 1,000 ML IV SCH ×2 (10:15→22:12)
[2020-10-26 10:48] LABS: Allen Test Pos (Pos)
[2020-10-26 10:49] LABS: Base Excess ABG 4.1 mEq/L (-9-1.8); HCO3 ABG 28 mmol/L (19-24); Oxygen Saturation ABG 94.7 % (90-95); PCO2 ABG 41 mmHg (35-46); PO2 ABG 69 mmHg (80-95); pH ABG 7.46 (7.35-7.45)
[2020-10-26] MEDS: CHOLECALCIFEROL 1,000 UNITS 25 MCG TAB PO SCH (11:04)
[2020-10-26] MEDS: MULTIVITAMIN TAB PO SCH (11:04)
--- NOTE | 2020-10-26 11:41 | XRay Report ---
XR chest 1V portable CLINICAL HISTORY: hypoxia, COVID COMPARISON STUDY: Chest CT October 15, 2020. Chest radiograph October 24, 2020. FINDINGS: Lung volumes are normal. There is no pneumothorax or pleural effusion. Mild elevation of th e right hemidiaphragm is unchanged. Moderate bilateral airspace opacities and interstitial thickening are similar to prior exam. Cardiomediastinal silhouette is stable. Patient is mildly rotated. IMPRESSION: No significant change in diffuse airspace opacities and interstitial thickening. The fin dings favor an infectious process. ARDS or pulmonary edema could appear similar. ACT 112: Negative or not required by law. Electronically signed by: Israel Gar M.D. 10/26/2020 11:40 AM
[2020-10-26] MEDS: MELATONIN 3 MG TAB PO SCH (19:58)
[2020-10-26] MEDS: ASPIRIN 81 MG ECTAB PO SCH (20:00)
[2020-10-26] MEDS: FLUTICASONE PROPIONATE NA SPR 16 GM BTL SCH (20:01)
[2020-10-27] MEDS: ENOXAPARIN 100 MG/1ML SYR SQ SCH ×2 (00:34→15:29)
[2020-10-27] MEDS: LEVOTHYROXINE SODIUM 75 MCG TABLET PO SCH (05:55)
[2020-10-27] MEDS: PANTOprazole 40 MG TAB PO SCH (05:55)
[2020-10-27 06:17] LABS: Hemoglobin 12.8 g/dL (12.0-16.0); Mean Corpuscular Hemoglobin 31.7 pg (25-34); Mean Corpuscular Hgb Conc 32.8 g/dL (32-36); Mean Corpuscular Volume 96.5 fL (80-100); Mean Platelet Volume 9.8 fL (7.4-10.4); Platelet Count 318 K/uL (130-400); RDW Coefficient of Variation 13.9 % (11.5-14.5); RDW Standard Deviation 49.2 fL (36.4-46.3); Red Blood Count 4.04 M/uL (4.2-5.4); White Blood Count 18.73 K/uL (4.8-10.8)
[2020-10-27 06:52] LABS: Creatinine Clr Calc Pharmacy 124.5 ml/min; Est GFR (Non-African American) 100.1
[2020-10-27] MEDS: LORazepam 0.5 MG/1 ML VIAL IV PRN (07:49)
[2020-10-27] MEDS: dexAMETHasone 6 MG in SYRINGE 0 ML IV SCH (07:54)
[2020-10-27] MEDS: INSULIN ASPART 100 UNITS/ML 3 ML PEN SC SCH ×4 (07:55→21:06)
[2020-10-27] MEDS: ROSUVASTATIN CALCIUM 5 MG TAB PO SCH (11:00)
[2020-10-27] MEDS: guaiFENesin 600 MG TABCR PO SCH ×2 (11:00→20:45)
[2020-10-27] MEDS: D5W AND 1/2NSS 1,000 ML IV SCH ×2 (11:07→17:44)
[2020-10-27] MEDS: MULTIVITAMIN TAB PO SCH (12:15)
[2020-10-27] MEDS: CHOLECALCIFEROL 1,000 UNITS 25 MCG TAB PO SCH (12:15)
[2020-10-27] MEDS ORDERED: CISATRACURIUM BESYLATE IV SOLN 2 MG/ML 10 ML VIAL IV STA (12:37)
[2020-10-27] MEDS ORDERED: STAT IV Infusion **Titration per Protocol STA (12:37)
[2020-10-27] MEDS ORDERED: SUCCINYLCHOLINE CHLORIDE 20 MG/ML 10 ML VIAL IV STA (12:47)
[2020-10-27] MEDS ORDERED: ETOMIDATE 2 MG/ML 20 ML VIAL IV ONE ×2 (12:47→17:19)
[2020-10-27] MEDS ORDERED: RAPID SEQUENCE INDUCTION BAG ONE (12:50)
--- NOTE | 2020-10-27 12:51 | Hospitalist Progress Note ---
Date of Service October 27, 2020 Assessment & Plan (1) Acute respiratory failure with hypoxia: Aim O2 sats > 90%. Currently adequate BIPAP with 100% FiO2 continue to prone as much as she can at this point she has been on BIPAP for 48 hours, no improvement discussed with her that intubation/ventilation is only chance of recovery she agrees to intubation Dr. Richards will take over her care (2) Pneumonia due to COVID-19 virus: Continue Decadron 6 mg IV daily, will continue since she remains on BIPAP and now needs intubated completed course of Remdesivir, LD 10/19 convalescent plasma on 10/16 unsure of what else to do to improve saturations except intubation remains on BIPAP all day CXR with persistent infiltrates, ARDS picture ABG with PaO2 69 on 100% FiO2 prognosis remains guarded plan for intubation this afternoon (3) Atrial fibrillation: Patient developed atrial fibrillation in the face of her hypoxic respiratory distress on 10/22 cardiology recommended amiodarone therapy without bolus and 1 dose of digoxin 0.5. Patient reportedly broke and became slightly bradycardic at times in a junctional rhythm continue full anticoagulation for now but may not be necessary not currently on any rate or rhythm control medications continue to monitor on tele, rate in 60's (4) Sepsis: Lactate 2.2 -> 1.5 Source - COVID-19 +/- possible bacterial PNA completed course of Levaquin sepsis resolved (5) Prediabetes: HbA1C 5.9 in May. Glucose 129 on admission. BSG ACHS and will initially use correction factor only, Novolog in case dexamethasone increases her glucose levels so far BSG have been acceptable (6) Hyperlipidemia: Continue her usual rosuvastatin dosing. (7) GERD (gastroesophageal reflux disease): Continue her usual pantoprazole 40mg PO daily (8) Esophageal dysmotility: Aspiration precautions. (9) Hypothyroidism: TSH 1.31 in Aug. Continue levothyroxine 75 mcg PO daily (10) Anxiety: reduced her usual clonazepam 0.5 -> 0.25mg q12h PRN added some as needed Ativan to help with anxiety patient tearful today and nervous about intubation (11) DVT prophylaxis: Lovenox therapeutic Lovenox currently Admission and Anticipated Discharge Date Admission Date: October 15, 2020 Subjective patient unable to come off the BIPAP for about 48 hours now doing worse, very tachypneic, using abdominal muscles several discussions at the bedside with Dr. Rihcards and myself about the need for intubation and ventilation discussed that she would not recover on the BIPAP she agreed to intubation this afternoon I updated her niece Dipak as well as her friend/neighbor Francisco J the patient stated that she would want her niece Dipak to make decisions once she is intubated / sedated reviewed labs, WBC is 18k, Cr is 0.49 Review of Systems Review of Systems: All systems reviewed & are unremarkable except as noted in Subjective Constitutional: + fatigue and + weakness Respiratory: + dyspnea and + dyspnea on exertion; no cough Physical Exam Constitutional: well developed, well nourished and comfortable; no acute distress Neck: trachea midline, no thyromegaly Respiratory: + labored breathing and + tachypneic; no respiratory distress and no cough Auscultation: lungs clear to auscultation bilaterally Cardiovascular: RRR, no murmur, no edema Gastrointestinal (Abdomen): normal bowel sounds, soft, nontender, no hepatosplenomegaly Musculoskeletal: no cyanosis or clubbing, extremities motor strength 5/5 Skin: no rashes, warm and dry Neurologic: patellar DTR's 2+ bilat, sensation intact and PERRL, EOMI, accomm odation nl, no face palsy, no dysarthria Psychiatric: Orientation: alert and oriented x 3 Affect: + anxious affect and + tearful affect Results & Data Results & Data ([facility]) Vital Signs (Past 12 Hours) Vital Signs Temp Pulse Pulse Resp BP Pulse Ox 10/27/20 11:39 36.6 C 69 20 134/93 92 10/27/20 11:24 65 30 H 92 10/27/20 09:37 56 L 10/27/20 07:32 36.5 C 75 20 148/74 H 91 10/27/20 06:54 56 L 30 H 93 10/27/20 04:02 36.9 C 72 22 142/95 H 90 10/27/20 02:24 52 L 22 90 Laboratory Results Laboratory Results - last 24 hr 10/26/20 10/26/20 10/27/20 16:17 20:19 05:42 WBC 18.73 H RBC 4.04 L Hgb 12.8 Hct 39.0 MCV 96.5 MCH 31.7 MCHC 32.8 RDW Std Deviation 49.2 H RDW Coeff of Mary 13.9 Plt Count 318 MPV 9.8 Creatinine Est Cr Clr Drug Dosing Est GFR ( Amer) Est GFR (Non-Af Amer) POC Glucose 234 H 205 H 10/27/20 10/27/20 10/27/20 05:42 07:54 12:00 WBC RBC Hgb Hct MCV MCH MCHC RDW Std Deviation RDW Coeff of Mary Plt Count MPV Creatinine 0.49 L Est Cr Clr Drug Dosing 124.5 Est GFR ( Amer) 116.0 Est GFR (Non-Af Amer) 100.1 POC Glucose 144 H 158 H Medications Administered Current Inpatient Medications Acetaminophen (Acetaminophen 325 Mg Tab) 650 mg PO Q4H PRN PRN Reason: Pain or Fever Stop: 11/14/20 20:32 Last Admin: 10/25/20 10:05 Dose: 650 mg Documented by: Al Hydrox/Mg Hydrox/Simethicone (Aluminum/Magnesium Susp 30 Ml Udc) 15 ml PO Q4H PRN PRN Reason: Dyspepsia Stop: 11/14/20 20:32 Aspirin (Aspirin 81 Mg Ectab) 81 mg PO HS [facility] Stop: 11/14/20 20:59 Last Admin: 10/26/20 20:00 Dose: 81 mg Documented by: Clonazepam (Clonazepam 0.25 Mg Tab) 0.25 mg PO BID PRN PRN Reason: anxiety Stop: 11/14/20 20:32 Last Admin: 10/19/20 21:51 Dose: 0.25 mg Documented by: Dextrose (Dextrose 50% 50 Ml Syringe) 25 - 50 ml IV UD PRN; Protocol PRN Reason: Hypoglycemia Protocol Stop: 11/14/20 20:32 Enoxaparin Sodium (Enoxaparin 100 Mg/1ml Syr) 100 mg SQ Q12H [facility] Stop: 11/22/20 13:14 Last Admin: 10/27/20 00:34 Dose: 100 mg Documented by: Fluticasone Propionate (Fluticasone Propionate Na Spr 16 Gm Btl) 2 sprays NA HS [facility] Stop: 11/17/20 20:59 Last Admin: 10/26/20 20:01 Dose: 2 sprays Documented by: Glucagon (Glucagon For Inj 1 Mg Vial) 1 mg SQ UD PRN; Protocol PRN Reason: Hypoglycemia Protocol Stop: 11/14/20 20:32 Glucose (Glucose 10 Tabs/Tube) 4 - 8 tabs PO UD PRN; Protocol PRN Reason: Hypoglycemia Protocol Stop: 11/14/20 20:32 Glucose (Glucose 40% Gel 15 Gm Tube) 15 - 30 gm PO UD PRN; Protocol PRN Reason: Hypoglycemia Protocol Stop: 11/14/20 20:32 Guaifenesin (Guaifenesin 600 Mg Tabcr) 1,200 mg PO Q12 [facility] Stop: 11/21/20 20:59 Last Admin: 10/27/20 11:00 Dose: Not Given Documented by: Lorazepam (Ativan) 0.5 mg in 1 mls @ 1 mls/min IV Q4H PRN PRN Reason: Anxiety Stop: 11/22/20 09:41 Last Admin: 10/27/20 07:49 Dose: 1 mls/min Documented by: Dexamethasone 6 mg/ Syringe 1.5 mls @ 1 mls/min IV QAM [facility] Stop: 11/25/20 08:59 Last Admin: 10/27/20 07:54 Dose: 1 mls/min Documented by: Dextrose/Sodium Chloride (D5w And 1/2nss) 1,000 mls @ 80 mls/hr IV .[id number] [facility] Stop: 11/25/20 09:59 Last Admin: 10/27/20 11:07 Dose: 80 mls/hr Documented by: Insulin Aspart (Insulin Aspart 100 Units/Ml 3 Ml Pen) 0 units SC ACHS [facility] Stop: 11/14/20 20:32 Last Admin: 10/27/20 12:12 Dose: 1 units Documented by: Levothyroxine Sodium (Levothyroxine Sodium 75 Mcg Tablet) 75 mcg PO DAILYBB [facility] Stop: 11/15/20 06:29 Last Admin: 10/27/20 05:55 Dose: 75 mcg Documented by: Melatonin (Melatonin 3 Mg Tab) 3 mg PO HS [facility] Stop: 11/20/20 23:04 Last Admin: 10/26/20 19:58 Dose: 3 mg Documented by: Meloxicam (Meloxicam 7.5 Mg Tab) 15 mg PO DAILY PRN PRN Reason: Pain Stop: 11/14/20 20:32 Last Admin: 10/16/20 08:58 Dose: 15 mg Documented by: Metoprolol Tartrate (Metoprolol Tartrate 1 Mg/Ml Vial) 5 mg IV Q4 PRN PRN Reason: sbp> 185, dbp >95, HR >120 Stop: 11/21/20 11:26 Last Admin: 10/22/20 11:46 Dose: 5 mg Documented by: Miscellaneous (Carbohydrates For Hypoglycemia ) 15 - 30 gm PO UD PRN PRN Reason: Hypoglycemia Protocol Stop: 11/14/20 20:32 Multivitamins (Multivitamin Tab) 1 tab PO 1200 [facility] Stop: 11/15/20 11:59 Last Admin: 10/27/20 12:15 Dose: Not Given Documented by: Ondansetron HCl (Ondansetron 4 Mg Od Tab) 4 mg PO Q8H PRN PRN Reason: nausea Stop: 11/14/20 20:53 Last Admin: 10/17/20 22:46 Dose: 4 mg Documented by: Pantoprazole Sodium (Pantoprazole 40 Mg Tab) 40 mg PO DAILYBB [facility] Stop: 11/15/20 06:29 Last Admin: 10/27/20 05:55 Dose: 40 mg Documented by: Polyethylene Glycol (Polyethylene (Miralax) 17 Gm Pack) 17 gm PO DAILY PRN PRN Reason: Constipation Stop: 11/14/20 20:32 Rosuvastatin Calcium (Rosuvastatin Calcium 5 Mg Tab) 5 mg PO MoWeFr@0900 [facility] Stop: 11/17/20 08:59 Last Admin: 10/27/20 11:00 Dose: Not Given Documented by: Sodium Chloride (Sodium Chloride 0.65% Na Soln 45 Ml ([place])) 2 sprays ABRAHAN QID PRN PRN Reason: Congestion Stop: 11/17/20 10:45 Last Admin: 10/18/20 14:56 Dose: 2 sprays Documented by: Vitamin D (Cholecalciferol 1,000 Units 25 Mcg Tab) 2,000 units PO DAILY@1200 [facility] Stop: 11/15/20 11:59 Last Admin: 10/27/20 12:15 Dose: Not Given Documented by: PG Care Time/CCT Total # of Minutes Spent Total Time Spent: 65 Total Time Spent with Patient: Total time spent is greater than 50% in coordination of care (as documented) at patient's floor/unit and/or counseling patient: 12 minutes on phone with friend Francisco J 10 minutes on the phone with jerrica Quesada 3 separate visits to the bedside with patient [address] Richards about care reviewing labs, chart, documentation Prolonged Care Time Prolonged Care Time: Yes Total Prolonged Care Time: 35 Coding Level of Care Code 72988 Subseq Hosp Care Lvl 3 Diagnoses Acute respiratory failure with hypoxia J96.01 Pneumonia due to COVID-19 virus U07.1; J12.89 Atrial fibrillation I48.91 Sepsis A41.9 Sepsis acute organ dysfunction status: unspecified Sepsis type: sepsis due to unspecified organism Prediabetes R73.03 Hyperlipidemia E78.5 GERD (gastroesophageal reflux disease) K21.9 Esophageal dysmotility K22.4 Hypothyroidism E03.9 Anxiety F41.9 DVT prophylaxis Z29.9 Additional Codes Prolonged Care Time - Prolonged Care Time: Yes ([id number]) (1) Sepsis Sepsis acute organ dysfunction status: unspecified Sepsis type: sepsis due to unspecified organism Qualified Code(s): A41.9 - Sepsis, unspecified organism
--- NOTE | 2020-10-27 14:16 | Procedure Note ---
Procedure Note Date of Service October 27, 2020 Procedure date: Noted above Procedure: Radial artery cannulation Pre-procedure Diagnosis: Need for invasive monitoring[, hypotension/frequent blood draws] Post-procedure Diagnosis: same as above Prior to Procedure: Informed Consent: The risks, benefits, indications, potential complications, and alternatives were explained to the patient and Verbal informed consent obtainedDue to NOELLE-Jorge and in the presence of Dr. Monae. Attending Staff: Lala Richards DO Skin Prep: Chlorhexidine Anesthesia: 3mL 1% lidocaine without epinephrine The identity of the patient was confirmed and a bedside time out was performed. Description of Procedure: After sterile prep and sterile drape utilizing standard sterile technique the superficial skin of the rightradial artery was anesthetized. The target artery was identified via dynamic ultrasound guidance and entered with a 20-gauge arrow Angiocath. Pulsatile bright red blood return was noted. Via modified Seldinger technique the self-contained guidewire was advanced and the Angiocath advanced over the guidewire. The guidewire was removed and brisk arterial blood return was noted. The pressure monitor was connected, and the arterial line was secured via silk suture. A sterile dressing was then applied. Complications: None Estimated blood loss: Trace Patient tolerated the procedure well. Coding CPT Codes Tubes, Drains, and Vasc Access - Tubes, Drains, and Vasc Access: [id number] Place Catheter In Artery ([id number]) [facility] [place] Procedure Codes (Charges) Tubes, Drains, and Vasc Access Procedure 1: Tubes, Drains, and Vasc Access: [id number] Place Catheter In Artery
--- NOTE | 2020-10-27 14:20 | Procedure Note ---
Procedure Note Date of Service October 27, 2020 Procedure date: Noted above Procedure: Central venous access Pre-procedure indication: Need for vasoactive medication administration, vascular access in COVID-19 pronation Post-procedure Diagnosis: same as above Prior to Procedure: Informed Consent: The risks, benefits, indications, potential complications, and alternatives were explained to the patient and informed consent obtained. Attending Staff: Lala Richards DO Resident/APC: Not applicable Skin Prep: Chlorhexidine Anesthesia: 4 mL 1% lidocaine without epinephrine The identity of the patient was confirmed and a bedside time out [was] performed. Description of Procedure: After sterile prep and sterile drape utilizing sta ndard sterile technique the superficial skin of the left subclavian area was anesthetized. The target vessel was identified and entered with an 18-gauge needle. Dark venous blood return was noted. A guidewire was inserted through the needle and into the vessel. The needle was withdrawn and a skin rowan was made. A tissue dilator was advanced via Seldinger technique and removed. A triple lumen catheter was inserted via Seldinger technique and the guidewire removed. All ports sarah beth and flushed easily. A Biopatch was placed, and the catheter was secured via silk suture. A sterile dressing was then applied. Complications: None Estimated blood loss: Trace Patient tolerated the procedure well. Coding CPT Codes Tubes, Drains, and Vasc Access - Tubes, Drains, and Vasc Access: [id number] Insertion Of Non-tunneled Catheter Age 6 Yrs> ([id number]) [facility] [place] Procedure Codes (Charges) Tubes, Drains, and Vasc Access Procedure 1: Tubes, Drains, and Vasc Access: [id number] Insertion Of Non-tunneled Catheter Age 6 Yrs>
--- NOTE | 2020-10-27 14:26 | XRay Report ---
XR chest 1V portable CLINICAL HISTORY: Respiratory failure COMPARISON STUDY: 10/26/2020 FINDINGS: There is an endotracheal tube 34 mm above the emeterio. There is a left subclavian central ve nous catheter projected superior vena cava. No pneumothorax is visualized in the supine study. There is nasogastric tube within the stomach. There are persistent extensive bilateral pulmonary airspace o pacities[ IMPRESSION: 1. Persistent extensive bilateral pulmonary airspace opacities 2. Interval placement of an endotracheal tube 5.4 cm above the emeterio 3. Interval placement of a left subclavian central venous catheter. 4. Interval placement of nasogastric tube within the stomach. ACT 112: Negative or not required by law. Electronically signed by: Sheldon Saunders M.D. 10/27/2020 2:24 PM
--- NOTE | 2020-10-27 14:26 | Procedure Note ---
Procedure Note Date of Service October 27, 2020 Procedure date: Noted above Procedure: Cardiopulmonary resuscitation Pre-procedure Diagnosis: CODE BLUE, cardiac arrest Post-procedure Diagnosis: same as above Prior to Procedure: Informed Consent: Emergent Attending Staff: Lala Richards DO Please refer to nursing code flowsheet for further details Description of Procedure: ACS protocols were followed for a hypoxic bradycardic arrest. Patient was noted to be in a bradycardic/pulseless arrest and was given 0.5 mg epinephrine received 2 minutes of high-quality CPR and had return of spontaneous circulation. Complications: no apparent complications Coding CPT Codes Resuscitation - Resuscitation: 54923 Heart/lung resuscitation CPR ([id number]) [facility] Procedure Codes (Charges) Indication for Procedure Indication for procedure: Resuscitation Resuscitation: 29098 Heart/lung resuscitation CPR
--- NOTE | 2020-10-27 14:30 | Procedure Note ---
Procedure Note Date of Service October 27, 2020 Procedure Date: Noted above Procedure: Endotracheal intubation Pre-procedure Diagnosis: Acute hypoxic respiratory failure secondary to COVID-19 Post-procedure Diagnosis: same as above Prior to Procedure: Informed Consent: patient had been verbally consented in the presence of Dr. Monae Attending Staff: Lala Richards DO The identity of the patient was confirmed and a bedside time out was performed. Description of Procedure: Patient was evaluated and required intubation for impending respiratory failure. The patient was prepared in the usual fashion. A 3 MAC Video laryngoscope was used. A 8.0 mm inner diameter endotracheal tube was placed endotracheally to 22 cm at the teeth. A grade 1 view was obtained. The endotracheal tube was noted to pass through the vocal cords. Chest rise was bilateral. Bilateral breath sounds were heard without air sounds in the abdomen. Mist was noted in the endotracheal tube. End-tidal CO2 measurement was positive. Chest x-ray shows proper endotracheal tube placement. Complications: [None] patient was saturating 90% while on100% FiO2.Patient's intubation procedure took approximately 30 seconds she desaturated to 85 1 the tube was introduced into the trachea.She was connected to the ventilator and started to ventilate her oxygen saturation continued to drop down to 75 before recovering to the mid 80s.She was given a recruitment maneuver of 30 cm of water with 0 pressure support for 30 seconds was performed. Patient tolerated this procedure well. Approximately 3 to 4 minutes she suffered a subsequent hypoxic/bradycardic arrest. Findings: Not applicable Specimens: Not applicable Estimated blood loss: Zero Coding CPT Codes Resuscitation - Resuscitation: 62425 Endotracheal Intubation, emergency ([id number]) [facility] [place] Procedure Codes (Charges) Resuscitation Resuscitation: 45717 Endotracheal Intubation, emergency
--- NOTE | 2020-10-27 14:55 | Critical Care Consultation ---
Date of Consultation October 27, 2020 Assessment & Plan (1) Cardiac arrest following intubation: Reason Critically Ill: Severe hypoxemia secondary to COVID-19 PLAN: Neuro: Encephalopathy acute - Definitive metabolic medication component -At risk for anoxic injury given cardiac arrest however this was approximately 2 minutes -At risk given continued hypoxia and aggressive ventilator settings Resp: COVID-19 pneumonia Acute respiratory distress syndrome Severe hypoxemic respiratory failure PF ratio less than 100 -ARDSnet guidelines 6 cc/kg body weight equals 360 mL -High PEEP low FiO2 Pronation therapy -18 hours prone -Cis atracurium infusion CV: SVT -This appeared to be in response to epinephrine given during CPR -Patient was given 5 mg metoprolol with minimal decrease in heart rate -Patient was given 500 mcg/kg over 1 minute esmolol infusion mild improvement in heart rate from 160s to 145 -Patient given 6 mg adenosine for possible reentrant tachycardia, patient had mild improvement in heart rate from 140s to 130s -Continuing esmolol infusion at 75 mcg/kg/min will discontinue wants patient's hyperadrenergic state has improved. Fluids/Renal: Minimize fluids if possible ID: Monitor fever curve GI/Nutrition: N.p.o. while prone Consider bolus feedings when supine Heme: Leukocytosis likely secondary to steroid use DVT prophylaxis: Lovenox 100 mg every 12 Endocrine: ICU hyperglycemia protocol Vascular access: Left subclavian placed 10/27 arterial line placed 10/27 Code Status: Full Disposition: ICU (2) Atrial fibrillation: (3) Fever: (4) Anxiety: (5) Hypoxia: (6) 2019 novel coronavirus–infected pneumonia (NCIP)#8211;infected pneumonia (NCIP): (7) Acute respiratory failure with hypoxia: (8) Prediabetes: Supervising Physician Co-Signing Physician Notes I was present and assisted with the pronating process. Patient tolerated the pronating movement. I have personally spent 120 minutes of critical care time in the direct management of this patient. This is a life/limb threatening event. This i ncludes time spent evaluating patient, direct bedside care, chart review, placing orders, interpretation of diagnostic studies, discussion with consultants, patient, and/or family members regarding treatment decisions, as well as other required patient management activities. This time is exclusive of all separately billable procedures, and teaching time and separate from and in addition to any other critical care service time. History of Present Illness Reason for Consultation: Acute hypoxic respiratory failure requiring intubation and mechanical ventilation Requesting Physician: Michael Monae DO Attending Physician: Michael Monae DO History of Present Illness Patient is a 69-year-old female who has acute hypoxic respiratory failure from 2019 novel coronavirus.She has been on high flow nasal cannula and noninvasive mechanical ventilation for 2 days and continues to decline she is currently on 100% FiO2 and is tachypneic into the 30s and 40s and unable to tolerate eating secondary to profound hypoxia. Allergies Allergy/AdvReac Type Severity Reaction Status Date / Time Penicillins Allergy Severe RESP Verified 07/15/20 09:32 DISTRESS/HIVES Home Medications Medication Instructions Recorded Confirmed Type Glucosamine Chondroitin 1 cap PO BID 04/03/19 10/15/20 History aspirin [Aspirin Low Dose] 81 mg PO HS 04/03/19 10/15/20 History biotin 5,000 mcg SUBLINGUAL 1200 04/03/19 10/15/20 History calcium carbonate-vitamin D3 1 tab PO BID 04/03/19 10/15/20 History [Calcium 600 + D(3)] cholecalciferol (vitamin D3) 2,000 unit PO 1200 04/03/19 10/15/20 History [Vitamin D3] multivitamin 1 tab PO 1200 04/03/19 10/15/20 History clonazepam 0.5 mg tablet 0.5 mg PO BID PRN #60 tab 09/17/19 10/15/20 Rx ciclopirox 8 % topical solution 1 appln TOP DAILY #6.6 ml 05/26/20 10/15/20 Rx fluticasone propionate 50 1 spray INTRANASAL HS #16 gm 06/15/20 10/15/20 Rx mcg/actuation nasal spray,suspension levothyroxine 75 mcg tablet 75 mcg PO DAILY #90 tab 07/05/20 10/15/20 Rx rosuvastatin 5 mg tablet 5 mg PO .COMPLEX #36 tab 07/08/20 10/15/20 Rx meloxicam 15 mg tablet 15 mg PO DAILY PRN #30 tab 07/28/20 10/15/20 Rx ondansetron HCl 4 mg tablet 4 mg PO Q8H PRN #30 tab 10/11/20 10/15/20 Rx pantoprazole 40 mg PO DAILYBB 10/15/20 10/15/20 History Patient History Medical History COVID-19 Fever GERD (gastroesophageal reflux disease) History of anesthesia reaction difficulty waking Hyperlipidemia Hypotension Hypothyroidism Migraine Obesity (BMI 30-39.9) Osteoarthritis Schatzki's ring of distal esophagus Surgical History History of cholecystectomy History of colonoscopy 2004 - [place] - Divertics sigmoid History of dilatation and curettage History of oral surgery permanent bridge placed History of total hysterectomy with bilateral salpingo-oophorectomy (BSO) 12/09/2013 History of vaginal surgery bartholin cyst removal History of wisdom tooth extraction Hx of laparoscopy diagnostic Family History Sister Family history of diabetes mellitus Bleeding disorder Grandfather (Paternal) Family hx of colon cancer Father Cardiac disorder Cancer Sister Hypertension Clotting disorder Sinusitis Mother Hypertension Stroke Cancer Sinusitis Other No family history of adverse response to anesthesia Social History Smoking Status: Never smoker Second Hand Exposure: No (father smoked); Hx Alcohol Use: Yes Alcohol type: beer, wine and hard liquor Alcohol Intake Frequency Comment: Social Drinker Hx Substance Use: No Preferred Language: Albanian Communication Ability: Effective 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 nontoxic. Skin: Warm, dry, Head: Atraumatic Ears, nose, mouth and throat: airway patent, No loose chipped teeth Cardiovascular: Normal peripheral perfusion Respiratory: no respiratory distress obvious tachypnea and respiratory distress speaking in 1-2 word sentences Gastrointestinal: Non distended Musculoskeletal: No deformity Results & Data Results & Data ([facility]) Vital Signs (Past 12 Hours) Vital Signs Temp Pulse Pulse Resp BP Pulse Ox 10/27/20 12:38 158 H 20 80 L 10/27/20 11:39 36.6 C 69 20 134/93 92 10/27/20 11:24 65 30 H 92 10/27/20 09:37 56 L 10/27/20 07:32 36.5 C 75 20 148/74 H 91 10/27/20 06:54 56 L 30 H 93 10/27/20 04:02 36.9 C 72 22 142/95 H 90 Laboratory Results 10/27/20 10/27/20 10/27/20 Range/Units 14:38 14:38 13:38 WBC (4.8-10.8) K/uL RBC (4.2-5.4) M/uL Hgb (12.0-16.0) g/dL Hct (37-47) % MCV (80-100) fL MCH (25-34) pg MCHC (32-36) g/dL RDW Std Deviation (36.4-46.3) fL RDW Coeff of Mary (11.5-14.5) % Plt Count (130-400) K/uL MPV (7.4-10.4) fL PT Pending INR Pending APTT Pending PTT Ratio Pending Fibrinogen Pending ABG pH Pending ABG pCO2 Pending ABG pO2 Pending ABG HCO3 Pending ABG O2 Saturation Pending ABG Base Excess Pending Kishan Test Pending Oxygen Given Pending Creatinine (0.6-1.2) mg/dl Est Cr Clr Drug Dosing ml/min Est GFR ( Amer) Est GFR (Non-Af Amer) POC Glucose (70-99) mg/dl Ionized Calcium Pending Blood Type Antibody Screen 10/27/20 10/27/20 10/27/20 Range/Units 13:38 12:00 07:54 WBC (4.8-10.8) K/uL RBC (4.2-5.4) M/uL Hgb (12.0-16.0) g/dL Hct (37-47) % MCV (80-100) fL MCH (25-34) pg MCHC (32-36) g/dL RDW Std Deviation (36.4-46.3) fL RDW Coeff of Mary (11.5-14.5) % Plt Count (130-400) K/uL MPV (7.4-10.4) fL PT INR APTT PTT Ratio Fibrinogen ABG pH ABG pCO2 ABG pO2 ABG HCO3 ABG O2 Saturation ABG Base Excess Kishan Test Oxygen Given Creatinine (0.6-1.2) mg/dl Est Cr Clr Drug Dosing ml/min Est GFR ( Amer) Est GFR (Non-Af Amer) POC Glucose 158 H 144 H (70-99) mg/dl Ionized Calcium Blood Type Pending Antibody Screen Pending 10/27/20 10/27/20 10/26/20 Range/Units 05:42 05:42 20:19 WBC 18.73 H (4.8-10.8) K/uL RBC 4.04 L (4.2-5.4) M/uL Hgb 12.8 (12.0-16.0) g/dL Hct 39.0 (37-47) % MCV 96.5 (80-100) fL MCH 31.7 (25-34) pg MCHC 32.8 (32-36) g/dL RDW Std Deviation 49.2 H (36.4-46.3) fL RDW Coeff of Mary 13.9 (11.5-14.5) % Plt Count 318 (130-400) K/uL MPV 9.8 (7.4-10.4) fL PT INR APTT PTT Ratio Fibrinogen ABG pH ABG pCO2 ABG pO2 ABG HCO3 ABG O2 Saturation ABG Base Excess Kishan Test Oxygen Given Creatinine 0.49 L (0.6-1.2) mg/dl Est Cr Clr Drug Dosing 124.5 ml/min Est GFR ( Amer) 116.0 Est GFR (Non-Af Amer) 100.1 POC Glucose 205 H (70-99) mg/dl Ionized Calcium Blood Type Antibody Screen 10/26/20 Range/Units 16:17 WBC (4.8-10.8) K/uL RBC (4.2-5.4) M/uL Hgb (12.0-16.0) g/dL Hct (37-47) % MCV (80-100) fL MCH (25-34) pg MCHC (32-36) g/dL RDW Std Deviation (36.4-46.3) fL RDW Coeff of Mary (11.5-14.5) % Plt Count (130-400) K/uL MPV (7.4-10.4) fL PT INR APTT PTT Ratio Fibrinogen ABG pH ABG pCO2 ABG pO2 ABG HCO3 ABG O2 Saturation ABG Base Excess Kishan Test Oxygen Given Creatinine (0.6-1.2) mg/dl Est Cr Clr Drug Dosing ml/min Est GFR ( Amer) Est GFR (Non-Af Amer) POC Glucose 234 H (70-99) mg/dl Ionized Calcium Blood Type Antibody Screen Coding Level of Care Code Critical Care 1st 30-74 mins Diagnoses Cardiac arrest following intubation I97.89; I46.9 Atrial fibrillation I48.91 Fever R50.9 Anxiety F41.9 Hypoxia R09.02 2019 novel coronavirus–infected pneumonia (NCIP)#8211;infected pneumonia (NCIP) U07.1; J12.89 Acute respiratory failure with hypoxia J96.01 Prediabetes R73.03 Time Spent (min) 120
[2020-10-27 14:58] LABS: Base Excess ABG -0.9 mEq/L (-9-1.8); HCO3 ABG 29 mmol/L (19-24); Oxygen Saturation ABG 80.4 % (90-95); PCO2 ABG 66 mmHg (35-46); PO2 ABG 53 mmHg (80-95); pH ABG 7.26 (7.35-7.45)
[2020-10-27 15:08] LABS: Allen Test POS (Pos)
[2020-10-27] MEDS: fentaNYL DRIP 1,250 MCG/250 ML BAG IV SCH (15:14)
[2020-10-27] MEDS: MIDAZOLAM HCL 125 MG/250 ML BAG IV SCH (15:15)
[2020-10-27] MEDS: CISATRACURIUM BESYLATE 40 MG in 0.9 % SODIUM CHLORIDE 80 ML IV SCH ×2 (15:22→16:36)
[2020-10-27 15:26] LABS: Fibrinogen 846 mg/dl (184-400); INR 1.2 (0.9-1.1); Partial Thromboplastin Ratio 0.9; Partial Thromboplastin Time 25.4 Seconds (21.0-31.0); Prothrombin Time 12.4 Seconds (9.0-12.0)
[2020-10-27] MEDS ORDERED: VECURONIUM BROMIDE 10 MG VIAL IV ONE (17:19)
[2020-10-27] MEDS ORDERED: fentaNYL citrate 100 MCG/2 ML VIAL IV ONE (17:19)
[2020-10-27] MEDS ORDERED: SUCCINYLCHOLINE CHLORIDE 20 MG/ML 10 ML VIAL IV ONE (17:19)
[2020-10-27] MEDS ORDERED: SODIUM BICARB 8.4% INJ 50 MEQ/50 ML SYR IV ONE (17:21)
[2020-10-27] MEDS ORDERED: ADENOSINE IV SOLN 3 MG/ML 2 ML VIAL IV ONE (17:21)
[2020-10-27] MEDS ORDERED: METOPROLOL TARTRATE 1 MG/ML VIAL IV ONE (17:21)
[2020-10-27] MEDS ORDERED: DEXTROSE 50% 50 ML SYRINGE IV ONE (17:21)
[2020-10-27] MEDS: ARTIFICIAL TEARS OP OINT 3.5 GM TUBE OP SCH ×2 (17:33→21:02)
[2020-10-27] MEDS: FLUTICASONE PROPIONATE NA SPR 16 GM BTL SCH (20:45)
[2020-10-27] MEDS: ASPIRIN 81 MG ECTAB PO SCH (20:45)
[2020-10-27] MEDS: MELATONIN 3 MG TAB PO SCH (20:45)
[2020-10-28] MEDS: ARTIFICIAL TEARS OP OINT 3.5 GM TUBE OP SCH ×7 (00:14→23:43)
[2020-10-28] MEDS: ENOXAPARIN 100 MG/1ML SYR SQ SCH ×2 (00:15→12:55)
[2020-10-28] MEDS: fentaNYL DRIP 1,250 MCG/250 ML BAG IV SCH ×2 (01:34→13:48)
[2020-10-28] MEDS: CISATRACURIUM BESYLATE 40 MG in 0.9 % SODIUM CHLORIDE 80 ML IV SCH ×3 (02:11→21:03)
[2020-10-28] MEDS: D5W AND 1/2NSS 1,000 ML IV SCH ×2 (04:04→16:37)
[2020-10-28] MEDS: PANTOprazole 40 MG TAB PO SCH (05:26)
[2020-10-28] MEDS: LEVOTHYROXINE SODIUM 75 MCG TABLET PO SCH (05:26)
[2020-10-28] MEDS: INSULIN ASPART 100 UNITS/ML 3 ML PEN SC SCH ×4 (06:05→20:36)
[2020-10-28 06:26] LABS: INR 1.1 (0.9-1.1); Partial Thromboplastin Ratio 1.1; Prothrombin Time 11.9 Seconds (9.0-12.0)
[2020-10-28 06:46] LABS: Albumin Level 1.7 gm/dl (3.4-5.0); BUN Creatinine Ratio 26.9 (10-20); Calcium 9.3 mg/dl (8.5-10.1); Creatinine Clr Calc Pharmacy 130.9 ml/min; Est GFR (African American) 117.6; Est GFR (Non-African American) 101.5; Magnesium 2.2 mg/dl (1.8-2.4); Potassium 4.7 mmol/L (3.5-5.1)
[2020-10-28 06:49] LABS: Bilirubin Direct 0.1 mg/dl (0-0.2); Bilirubin,Total 0.4 mg/dl (0.2-1); Phosphorus 3.6 mg/dl (2.5-4.9); Total Protein 5.9 gm/dl (6.4-8.2)
[2020-10-28 06:58] LABS: Hematocrit (blood only) 39.2 % (37-47); Hemoglobin 12.5 g/dL (12.0-16.0); Mean Corpuscular Hemoglobin 32.3 pg (25-34); Mean Corpuscular Hgb Conc 31.9 g/dL (32-36); Mean Corpuscular Volume 101.3 fL (80-100); Mean Platelet Volume 9.7 fL (7.4-10.4); Platelet Count 328 K/uL (130-400); RDW Coefficient of Variation 14.5 % (11.5-14.5); RDW Standard Deviation 53.4 fL (36.4-46.3); Red Blood Count 3.87 M/uL (4.2-5.4); White Blood Count 22.62 K/uL (4.8-10.8)
[2020-10-28] MEDS: guaiFENesin 600 MG TABCR PO SCH ×2 (07:29→20:08)
[2020-10-28 07:35] LABS: Basophils # (auto) 0.01 K/uL (0-0.2); Eosinophils # (auto) 0.01 K/uL (0-0.5); Immature Granulocytes # (auto) 0.19 K/uL (0.00-0.02); Immature Granulocytes % (auto) 0.8 %; Lymphocytes # (auto) 0.77 K/uL (1.2-3.4); Lymphocytes % (auto) 3.4 %; Monocytes # (auto) 0.14 K/uL (0.11-0.59); Monocytes % (auto) 0.6 %; Neutrophils % (auto) 95.2 %
[2020-10-28] MEDS: dexAMETHasone 6 MG in SYRINGE 0 ML IV SCH (09:09)
--- NOTE | 2020-10-28 09:22 | Hospitalist Progress Note ---
Date of Service October 28, 2020 Assessment & Plan (1) Acute respiratory failure with hypoxia: intubated on 10/27, turned prone this morning with PEEP 18, FiO2 60%, PRVC mode with low tidal volumes management per Dr. Richards patient required HFNC and BIPAP since admission on 10/15 from 10/25 to 10/27 she could not come off BIPAP she and her family agreed to intubation and mech ventilation she would like her niece Dipak to make decisions for her while on the ventilator (2) Pneumonia due to COVID-19 virus: Continue Decadron 6 mg IV daily, will continue since she is requiring mech ventilation completed course of Remdesivir, LD 10/19 convalescent plasma on 10/16 prognosis remains guarded but ventilation is her only option to pull through (3) Atrial fibrillation: Patient developed atrial fibrillation in the face of her hypoxic respiratory distress on 10/22 cardiology recommended amiodarone therapy without bolus and 1 dose of digoxin 0.5. Patient reportedly broke and became slightly bradycardic at times in a junctional rhythm continue full anticoagulation for now but may not be necessary not currently on any rate or rhythm control medications continue to monitor on tele, rate in 60's (4) Sepsis: Lactate 2.2 -> 1.5 Source - COVID-19 +/- possible bacterial PNA completed course of Levaquin sepsis resolved (5) Prediabetes: HbA1C 5.9 in May. Glucose 129 on admission. BSG ACHS and will initially use correction factor only, Novolog in case dexamethasone increases her glucose levels so far BSG have been acceptable (6) Hyperlipidemia: Continue her usual rosuvastatin dosing. (7) GERD (gastroesophageal reflux disease): Continue her usual pantoprazole 40mg PO daily (8) Esophageal dysmotility: Aspiration precautions. (9) Hypothyroidism: TSH 1.31 in Aug. Continue levothyroxine 75 mcg PO daily (10) Anxiety: now on sedation (11) DVT prophylaxis: Lovenox therapeutic Lovenox currently Admission and Anticipated Discharge Date Admission Date: October 15, 2020 Subjective patient intubated yesterday, turned prone this morning she is requiring 60% FiO2 and PEEP is 18 reviewed labs, CBC and BMP stable ventilator management per Dr. Richards Review of Systems Review of Systems: Unobtainable due to endotracheal tube Physical Exam Constitutional: well developed, well nourished and + mechanically ventilated (prone) Neck: trachea midline, no thyromegaly Respiratory: symmetric chest movement (ventilated) Auscultation: lungs clear to auscultation bilaterally Cardiovascular: RRR, no murmur, no edema Gastrointestinal (Abdomen): normal bowel sounds, soft, nontender, no hepatosplenomegaly Musculoskeletal: no cyanosis or clubbing, extremities motor strength 5/5 Skin: no rashes, warm and dry Neurologic: + obtunded; no focal motor deficits Psychiatric: Orientation: + not alert Results & Data Results & Data ([facility]) Vital Signs (Past 12 Hours) Vital Signs Temp Pulse Resp BP Pulse Ox 10/28/20 08:35 73 20 96 10/28/20 08:15 74 20 96 10/28/20 08:00 37.3 C 76 21 137/61 96 10/28/20 07:45 71 21 96 10/28/20 07:30 72 20 126/61 96 10/28/20 07:15 81 20 96 10/28/20 07:00 67 21 114/60 96 10/28/20 06:00 63 20 121/58 L 95 10/28/20 05:30 81 20 111/58 L 95 10/28/20 05:00 80 20 119/75 95 10/28/20 04:30 82 20 127/64 96 10/28/20 04:00 36.8 C 80 20 122/63 95 10/28/20 03:30 69 20 128/68 95 10/28/20 03:00 65 20 131/56 L 94 10/28/20 02:35 64 21 94 10/28/20 02:30 65 20 135/70 94 10/28/20 02:00 70 20 138/59 L 93 10/28/20 01:30 61 20 121/61 93 10/28/20 01:00 75 20 134/72 93 10/28/20 00:30 72 20 116/52 L 92 10/28/20 00:10 20 10/28/20 00:00 36.7 C 87 20 124/63 95 10/27/20 23:30 88 20 116/65 95 10/27/20 23:00 75 20 115/59 L 97 10/27/20 22:35 58 L 20 96 10/27/20 22:30 60 20 105/58 L 97 10/27/20 22:00 63 20 118/66 95 10/27/20 21:30 67 20 106/67 95 Laboratory Results Laboratory Results - last 24 hr 10/27/20 10/27/20 10/27/20 12:00 13:38 13:38 WBC RBC Hgb Hct MCV MCH MCHC RDW Std Deviation RDW Coeff of Mary Plt Count MPV Immature Gran % (Auto) Neut % (Auto) Lymph % (Auto) [place] % (Auto) Eos % (Auto) Baso % (Auto) Neut # (Auto) Lymph # (Auto) [place] # (Auto) Eos # (Auto) Baso # (Auto) Immature Gran # (Auto) PT 12.4 H INR 1.2 H APTT 25.4 PTT Ratio 0.9 Fibrinogen 846 H ABG pH ABG pCO2 ABG pO2 ABG HCO3 ABG O2 Saturation ABG Base Excess Kishan Test Barometric Pressure Oxygen Given Sodium Potassium Chloride Carbon Dioxide Anion Gap BUN Creatinine Est Cr Clr Drug Dosing Est GFR ( Amer) Est GFR (Non-Af Amer) BUN/Creatinine Ratio Glucose POC Glucose 158 H Calcium Ionized Calcium Phosphorus Magnesium Total Bilirubin Direct Bilirubin AST ALT Alkaline Phosphatase Total Protein Albumin Lipase Blood Type O Positive Antibody Screen NEGATIVE 10/27/20 10/27/20 10/27/20 14:38 14:38 17:37 WBC RBC Hgb Hct MCV MCH MCHC RDW Std Deviation RDW Coeff of Mary Plt Count MPV Immature Gran % (Auto) Neut % (Auto) Lymph % (Auto) [place] % (Auto) Eos % (Auto) Baso % (Auto) Neut # (Auto) Lymph # (Auto) [place] # (Auto) Eos # (Auto) Baso # (Auto) Immature Gran # (Auto) PT INR APTT PTT Ratio Fibrinogen ABG pH 7.26 L ABG pCO2 66 H ABG pO2 53 L ABG HCO3 29 H ABG O2 Saturation 80.4 L ABG Base Excess -0.9 Kishan Test POS Barometric Pressure 728.2 Oxygen Given FiO2 100% Sodium Potassium Chloride Carbon Dioxide Anion Gap BUN Creatinine Est Cr Clr Drug Dosing Est GFR ( Amer) Est GFR (Non-Af Amer) BUN/Creatinine Ratio Glucose POC Glucose 200 H Calcium Ionized Calcium 1.22 Phosphorus Magnesium Total Bilirubin Direct Bilirubin AST ALT Alkaline Phosphatase Total Protein Albumin Lipase Blood Type Antibody Screen 10/27/20 10/28/2010/28/20 20:27 05:36 05:36 WBC 22.62 H RBC 3.87 L Hgb 12.5 Hct 39.2 MCV 101.3 H MCH 32.3 MCHC 31.9 L RDW Std Deviation 53.4 H RDW Coeff of Mary 14.5 Plt Count 328 MPV 9.7 Immature Gran % (Auto) 0.8 Neut % (Auto) 95.2 Lymph % (Auto) 3.4 [place] % (Auto) 0.6 Eos % (Auto) 0.0 Baso % (Auto) 0.0 Neut # (Auto) 21.50 H Lymph # (Auto) 0.77 L [place] # (Auto) 0.14 Eos # (Auto) 0.01 Baso # (Auto) 0.01 Immature Gran # (Auto) 0.19 H PT 11.9 INR 1.1 APTT 32.0 H PTT Ratio 1.1 Fibrinogen ABG pH ABG pCO2 ABG pO2 ABG HCO3 ABG O2 Saturation ABG Base Excess Kishan Test Barometric Pressure Oxygen Given Sodium Potassium Chloride Carbon Dioxide Anion Gap BUN Creatinine Est Cr Clr Drug Dosing Est GFR ( Amer) Est GFR (Non-Af Amer) BUN/Creatinine Ratio Glucose POC Glucose 211 H Calcium Ionized Calcium Phosphorus Magnesium Total Bilirubin Direct Bilirubin AST ALT Alkaline Phosphatase Total Protein Albumin Lipase Blood Type Antibody Screen 10/28/20 10/28/20 10/28/20 05:36 05:36 06:02 WBC RBC Hgb Hct MCV MCH MCHC RDW Std Deviation RDW Coeff of Mary Plt Count MPV Immature Gran % (Auto) Neut % (Auto) Lymph % (Auto) [place] % (Auto) Eos % (Auto) Baso % (Auto) Neut # (Auto) Lymph # (Auto) [place] # (Auto) Eos # (Auto) Baso # (Auto) Immature Gran # (Auto) PT INR APTT PTT Ratio Fibrinogen ABG pH ABG pCO2 ABG pO2 ABG HCO3 ABG O2 Saturation ABG Base Excess Kishan Test Barometric Pressure Oxygen Given Sodium 140 Potassium 4.7 Chloride 105 Carbon Dioxide 31 Anion Gap 4.0 BUN 13 Creatinine 0.47 L Est Cr Clr Drug Dosing 130.9 Est GFR ( Amer) 117.6 Est GFR (Non-Af Amer) 101.5 BUN/Creatinine Ratio 26.9 H Glucose 144 H POC Glucose 138 H Calcium 9.3 Ionized Calcium 1.23 Phosphorus 3.6 Magnesium 2.2 Total Bilirubin 0.4 Direct Bilirubin 0.1 AST 26 ALT 53 Alkaline Phosphatase 124 H Total Protein 5.9 L Albumin 1.7 L Lipase 63 L Blood Type Antibody Screen Medications Administered Current Inpatient Medications Acetaminophen (Acetaminophen 325 Mg Tab) 650 mg PO Q4H PRN PRN Reason: Pain or Fever Stop: 11/14/20 20:32 Last Admin: 10/25/20 10:05 Dose: 650 mg Documented by: Al Hydrox/Mg Hydrox/Simethicone (Aluminum/Magnesium Susp 30 Ml Udc) 15 ml PO Q4H PRN PRN Reason: Dyspepsia Stop: 11/14/20 20:32 Aspirin (Aspirin 81 Mg Ectab) 81 mg PO HS [facility] Stop: 11/14/20 20:59 Last Admin: 10/27/20 20:45 Dose: Not Given Documented by: Clonazepam (Clonazepam 0.25 Mg Tab) 0.25 mg PO BID PRN PRN Reason: anxiety Stop: 11/14/20 20:32 Last Admin: 10/19/20 21:51 Dose: 0.25 mg Documented by: Dextrose (Dextrose 50% 50 Ml Syringe) 25 - 50 ml IV UD PRN; Protocol PRN Reason: Hypoglycemia Protocol Stop: 11/14/20 20:32 Enoxaparin Sodium (Enoxaparin 100 Mg/1ml Syr) 100 mg SQ Q12H [facility] Stop: 11/22/20 13:14 Last Admin: 10/28/20 00:15 Dose: 100 mg Documented by: Fentanyl Citrate (Fentanyl Bolus From Bag) 50 mcg IV Q60M PRN PRN Reason: Pain or Agitation Stop: 11/10/20 12:36 Fluticasone Propionate (Fluticasone Propionate Na Spr 16 Gm Btl) 2 sprays NA HS [facility] Stop: 11/17/20 20:59 Last Admin: 10/27/20 20:45 Dose: Not Given Documented by: Glucagon (Glucagon For Inj 1 Mg Vial) 1 mg SQ UD PRN; Protocol PRN Reason: Hypoglycemia Protocol Stop: 11/14/20 20:32 Glucose (Glucose 10 Tabs/Tube) 4 - 8 tabs PO UD PRN; Protocol PRN Reason: Hypoglycemia Protocol Stop: 11/14/20 20:32 Glucose (Glucose 40% Gel 15 Gm Tube) 15 - 30 gm PO UD PRN; Protocol PRN Reason: Hypoglycemia Protocol Stop: 11/14/20 20:32 Guaifenesin (Guaifenesin 600 Mg Tabcr) 1,200 mg PO Q12 [facility] Stop: 11/21/20 20:59 Last Admin: 10/28/20 07:29 Dose: Not Given Documented by: Lorazepam (Ativan) 0.5 mg in 1 mls @ 1 mls/min IV Q4H PRN PRN Reason: Anxiety Stop: 11/22/20 09:41 Last Admin: 10/27/20 07:49 Dose: 1 mls/min Documented by: Dexamethasone 6 mg/ Syringe 1.5 mls @ 1 mls/min IV QAM [facility] Stop: 11/25/20 08:59 Last Admin: 10/28/20 09:09 Dose: 1 mls/min Documented by: Dextrose/Sodium Chloride (D5w And 1/2nss) 1,000 mls @ 80 mls/hr IV .[id number] [facility] Stop: 11/25/20 09:59 Last Admin: 10/28/20 04:04 Dose: 80 mls/hr Documented by: Cisatracurium Besylate 40 mg/ (Sodium Chloride) 100 mls @ 8.205 mls/hr IV .[id number] [facility]; Protocol Stop: 11/26/20 12:59 Last Titration: 10/28/20 07:19 Dose: 1 mcg/kg/min, 8.2 mls/hr Documented by: Midazolam HCl (Versed) 125 mg in 250 mls @ 2 mls/hr IV .Q96H [facility]; Protocol Stop: 11/26/20 12:44 Last Titration: 10/28/20 07:19 Dose: 4 mg/hr, 8 mls/hr Documented by: Fentanyl Citrate (Fentanyl Drip) 1,250 mcg in 250 mls @ 5 mls/hr IV .Q50H [facility]; Protocol Stop: 11/10/20 12:44 Last Titration: 10/28/20 07:19 Dose: 100 mcg/hr, 20 mls/hr Documented by: Insulin Aspart (Insulin Aspart 100 Units/Ml 3 Ml Pen) 0 units SC Q6 [facility] Stop: 11/27/20 05:59 Last Admin: 10/28/20 06:05 Dose: Not Given Documented by: Levothyroxine Sodium (Levothyroxine Sodium 75 Mcg Tablet) 75 mcg PO DAILYBB [facility] Stop: 11/15/20 06:29 Last Admin: 10/28/20 05:26 Dose: 75 mcg Documented by: Melatonin (Melatonin 3 Mg Tab) 3 mg PO HS [facility] Stop: 11/20/20 23:04 Last Admin: 10/27/20 20:45 Dose: Not Given Documented by: Meloxicam (Meloxicam 7.5 Mg Tab) 15 mg PO DAILY PRN PRN Reason: Pain Stop: 11/14/20 20:32 Last Admin: 10/16/20 08:58 Dose: 15 mg Documented by: Metoprolol Tartrate (Metoprolol Tartrate 1 Mg/Ml Vial) 5 mg IV Q4 PRN PRN Reason: sbp> 185, dbp >95, HR >120 Stop: 11/21/20 11:26 Last Admin: 10/22/20 11:46 Dose: 5 mg Documented by: Midazolam HCl (Midazolam Bolus From Bag) 2 mg IV Q60M PRN PRN Reason: Sedation Stop: 11/26/20 12:36 Miscellaneous (Carbohydrates For Hypoglycemia ) 15 - 30 gm PO UD PRN PRN Reason: Hypoglycemia Protocol Stop: 11/14/20 20:32 Multi-Ingredient Cream (Artificial Tears Op Oint 3.5 Gm Tube) 1 appln OP Q4 [facility] Stop: 11/26/20 16:06 Last Admin: 10/28/20 09:09 Dose: 1 appln Documented by: Multivitamins (Multivitamin Tab) 1 tab PO 1200 [facility] Stop: 11/15/20 11:59 Last Admin: 10/27/20 12:15 Dose: Not Given Documented by: Ondansetron HCl (Ondansetron 4 Mg Od Tab) 4 mg PO Q8H PRN PRN Reason: nausea Stop: 11/14/20 20:53 Last Admin: 10/17/20 22:46 Dose: 4 mg Documented by: Pantoprazole Sodium (Pantoprazole 40 Mg Tab) 40 mg PO DAILYBB [facility] Stop: 11/15/20 06:29 Last Admin: 10/28/20 05:26 Dose: 40 mg Documented by: Polyethylene Glycol (Polyethylene (Miralax) 17 Gm Pack) 17 gm PO DAILY PRN PRN Reason: Constipation Stop: 11/14/20 20:32 Rosuvastatin Calcium (Rosuvastatin Calcium 5 Mg Tab) 5 mg PO MoWeFr@0900 [facility] Stop: 11/17/20 08:59 Last Admin: 10/27/20 11:00 Dose: Not Given Documented by: Sodium Chloride (Sodium Chloride 0.65% Na Soln 45 Ml ([place])) 2 sprays ABRAHAN QID PRN PRN Reason: Congestion Stop: 11/17/20 10:45 Last Admin: 10/18/20 14:56 Dose: 2 sprays Documented by: Vitamin D (Cholecalciferol 1,000 Units 25 Mcg Tab) 2,000 units PO DAILY@1200 HARISH Stop: 11/15/20 11:59 Last Admin: 10/27/20 12:15 Dose: Not Given Documented by: PG Care Time/CCT Total # of Minutes Spent Total Time Spent with Patient: Total time spent is greater than 50% in coordination of care (as documented) at patient's floor/unit and/or counseling patient: Coding Level of Care Code 57760 Subseq Hosp Care Lvl 3 Diagnoses Acute respiratory failure with hypoxia J96.01 Pneumonia due to COVID-19 virus U07.1; J12.89 Atrial fibrillation I48.91 Sepsis A41.9 Sepsis acute organ dysfunction status: unspecified Sepsis type: sepsis due to unspecified organism Prediabetes R73.03 Hyperlipidemia E78.5 GERD (gastroesophageal reflux disease) K21.9 Esophageal dysmotility K22.4 Hypothyroidism E03.9 Anxiety F41.9 DVT prophylaxis Z29.9 (1) Sepsis Sepsis acute organ dysfunction status: unspecified Sepsis type: sepsis due to unspecified organism Qualified Code(s): A41.9 - Sepsis, unspecified organism
--- NOTE | 2020-10-28 12:03 | Critical Care Progress Note ---
Date of Service October 28, 2020 Assessment & Plan (1) Cardiac arrest following intubation: Reason Critically Ill: Severe hypoxemia secondary to COVID-19 PLAN: Neuro: Encephalopathy acute -At risk for anoxic injury -Less than 2-minute cardiac arrest after intubation Resp: COVID-19 pneumonia Acute respiratory distress syndrome Severe hypoxemic respiratory failure PF ratio less than 100 -ARDSnet guidelines 6 cc/kg body weight equals 360 mL -High PEEP low FiO2 Pronation therapy -18 hours prone will continue proning -Cis atracurium infusion CV: SVT: Resolved ID: Monitor fever curve GI/Nutrition: N.p.o. while prone Consider bolus feedings when supine Heme: Leukocytosis likely secondary to steroid use DVT prophylaxis: Lovenox 100 mg every 12 Endocrine: ICU hyperglycemia protocol Vascular access: Left subclavian placed 10/27 arterial line placed 10/27 Code Status: Full Disposition: ICU (2) Atrial fibrillation: (3) Fever: (4) Anxiety: (5) Hypoxia: (6) 2019 novel coronavirus–infected pneumonia ([facility])#8211;infected pneumonia (NCIP): (7) Prediabetes: Admission and Anticipated Discharge Date Admission Date: October 15, 2020 Supervising Physician Co-Signing Physician Notes Patient was cussed on multidisciplinary rounds I have personally spent 45 minutes of critical care time in the direct management of this patient. This is a life/limb threatening event. This includes time spent evaluating patient, direct bedside care, chart review, placing orders, interpretation of diagnostic studies, discussion with consultants, patient, and/or family members regarding treatment decisions, as well as other required patient management activities. This time is exclusive of all separately billable procedures, and teaching time and separate from and in addition to any other critical care service time. Subjective No overnight events. Review of Systems Review of Systems: Unobtainable due to endotracheal tube Physical Exam Physical Exam: General: 3 TP Skin: Warm, dry, Head: Atraumatic Ears, nose, mouth and throat: Obscured by endotracheal tube Cardiovascular: Normal peripheral perfusion Respiratory: Ventilator settings reviewed Gastrointestinal: Non distended Musculoskeletal: No deformity Results & Data Results & Data ([facility]) Vital Signs (Past 12 Hours) Vital Signs Temp Pulse Resp BP Pulse Ox 10/28/20 08:35 73 20 96 10/28/20 08:15 74 20 96 10/28/20 08:00 37.3 C 76 21 137/61 96 10/28/20 07:45 71 21 96 10/28/20 07:30 72 20 126/61 96 10/28/20 07:15 81 20 96 10/28/20 07:00 67 21 114/60 96 10/28/20 06:00 63 20 121/58 L 95 10/28/20 05:30 81 20 111/58 L 95 10/28/20 05:00 80 20 119/75 95 10/28/20 04:30 82 20 127/64 96 10/28/20 04:00 36.8 C 80 20 122/63 95 10/28/20 03:30 69 20 128/68 95 10/28/20 03:00 65 20 131/56 L 94 10/28/20 02:35 64 21 94 10/28/20 02:30 65 20 135/70 94 10/28/20 02:00 70 20 138/59 L 93 10/28/20 01:30 61 20 121/61 93 10/28/20 01:00 75 20 134/72 93 10/28/20 00:30 72 20 116/52 L 92 10/28/20 00:10 20 Coding Level of Care Code Critical Care 1st 30-74 mins Diagnoses Cardiac arrest following intubation I97.89; I46.9 Atrial fibrillation I48.91 Fever R50.9 Anxiety F41.9 Hypoxia R09.02 2019 novel coronavirus–infected pneumonia ([facility])#8211;infected pneumonia ([facility]) U07.1; J12.89 Prediabetes R73.03
[2020-10-28] MEDS: MULTIVITAMIN TAB PO SCH (12:54)
[2020-10-28] MEDS: CHOLECALCIFEROL 1,000 UNITS 25 MCG TAB PO SCH (12:54)
[2020-10-28] MEDS: MIDAZOLAM HCL 125 MG/250 ML BAG IV SCH (20:04)
[2020-10-28] MEDS: FLUTICASONE PROPIONATE NA SPR 16 GM BTL SCH (20:08)
[2020-10-28] MEDS: MELATONIN 3 MG TAB PO SCH (20:08)
[2020-10-28] MEDS: ASPIRIN 81 MG CHEW PO SCH (20:11)
--- NOTE | 2020-10-28 21:29 | Communication Note ---
Date of Service: October 28, 2020 2020: Assessed the patient at bedside in ventilation perfusion while on current ventilator settings. During signout with attending physician, concern was for need for possible proning as the patient has required increasing FiO2 and high levels of PEEP to maintain appropriate oxygen saturations. Patient is currently at an FiO2 of 50% and a PEEP of 18. Her saturations are approximately 90%. At this point, decision was made to prone patient to help with lung recruitment and with hopes of being able to improve ventilator settings. 2044: Team assembled included myself, respiratory therapist, clinical supervisor water treatment plant, and four ICU trained RNs. Assessment of all indwelling tubes and lines was performed. Patient remained on monitor throughout the process. FiO2 was temporarily titrated to 100% during procedure. Respiratory therapy maintained cervical spine and ET tube. Patient was appropriately padded in all locations prior to proning procedure. With ample help, the patient was easily placed in the prone position. All lines, tubes, and monitoring devices were replaced. FiO2 was titrated down to 60% and the patient is maintaining oxygen saturations in the high 90s. Patient to remain in prone position per unit protocol with repeat ABG in morning with hopes for ability to titrate down ventilator settings as tolerated. I have personally spent 32 minutes of critical care time in the direct management of this patient. This is a life/limb threatening event. This includes time spent evaluating patient, direct bedside care, chart review, placing orders, interpretation of diagnostic studies, discussion with consultants, patient, and family members, as well as other required patient management activities. This time is exclusive of all separately billable procedures, and teaching time and separate from and in addition to any other critical care service time. Coding Level of Care Code Critical Care doug addt'l 30 min
[2020-10-29] MEDS: ENOXAPARIN 100 MG/1ML SYR SQ SCH ×2 (00:09→12:16)
[2020-10-29] MEDS: INSULIN ASPART 100 UNITS/ML 3 ML PEN SC SCH ×6 (00:10→20:23)
[2020-10-29] MEDS: CISATRACURIUM BESYLATE 40 MG in 0.9 % SODIUM CHLORIDE 80 ML IV SCH ×4 (03:19→23:29)
[2020-10-29] MEDS: fentaNYL DRIP 1,250 MCG/250 ML BAG IV SCH ×2 (03:19→15:17)
[2020-10-29] MEDS: ARTIFICIAL TEARS OP OINT 3.5 GM TUBE OP SCH ×5 (03:20→20:29)
[2020-10-29 05:04] LABS: iSTAT Allen Test Pass; iSTAT Art Bld Gas pCO2 Correct 61 mmHg (35-46); iSTAT Art Bld Gas pH Corrected 7.336 (7.35-7.45); iSTAT Arterial Blood Gas HCO3 33 meg/L (19-24); iSTAT Arterial Blood Gas pCO2 63 mmHg (35-46); iSTAT Arterial Blood Gas pH 7.33 (7.35-7.45); iSTAT Arterial Blood Gas pO2 51 mmHg (80-95); iSTAT Arterial Blood Gas pO2 C 49; iSTAT Carbon Dioxide 35 mmol/L (24-31); iSTAT Hematocrit 34 % (37-47); iSTAT Hemoglobin 11.6 g/dl (12.0-16.0); iSTAT Potassium 4.4 mmol/L (3.3-5.0); iSTAT Site Art Line; iSTAT Sodium 134 mmol/L (135-144)
[2020-10-29] MEDS: D5W AND 1/2NSS 1,000 ML IV SCH ×2 (05:26→21:46)
[2020-10-29] MEDS: LEVOTHYROXINE SODIUM 75 MCG TABLET PO SCH (05:26)
[2020-10-29 07:22] LABS: Eosinophils # (auto) 0.01 K/uL (0-0.5); Eosinophils % (auto) 0.1 %; Hematocrit (blood only) 36.1 % (37-47); Hemoglobin 11.4 g/dL (12.0-16.0); Immature Granulocytes # (auto) 0.12 K/uL (0.00-0.02); Immature Granulocytes % (auto) 0.9 %; Lymphocytes # (auto) 0.49 K/uL (1.2-3.4); Lymphocytes % (auto) 3.5 %; Mean Corpuscular Hemoglobin 31.5 pg (25-34); Mean Corpuscular Hgb Conc 31.6 g/dL (32-36); Mean Corpuscular Volume 99.7 fL (80-100); Mean Platelet Volume 9.5 fL (7.4-10.4); Monocytes # (auto) 0.21 K/uL (0.11-0.59); Monocytes % (auto) 1.5 %; Neutrophils # (auto) 13.27 K/uL (1.4-6.5); Platelet Count 215 K/uL (130-400); Red Blood Count 3.62 M/uL (4.2-5.4)
[2020-10-29 07:41] LABS: INR 1.1 (0.9-1.1); Partial Thromboplastin Ratio 1.2; Partial Thromboplastin Time 34.2 Seconds (21.0-31.0); Prothrombin Time 11.7 Seconds (9.0-12.0)
[2020-10-29 07:52] LABS: Alanine Aminotransferase 48 U/L (12-78); Albumin Level 1.5 gm/dl (3.4-5.0); Aspartate Aminotransferase 24 U/L (15-37); BUN Creatinine Ratio 28.3 (10-20); Bilirubin Direct < 0.1 mg/dl (0-0.2); Blood Urea Nitrogen 10 mg/dl (7-18); Calcium 8.2 mg/dl (8.5-10.1); Carbon Dioxide 34 mmol/L (21-32); Chloride 102 mmol/L (98-107); Creatinine Clr Calc Pharmacy 170.9 ml/min; Est GFR (African American) 128.4; Est GFR (Non-African American) 110.8; Glucose 132 mg/dl (70-99); Potassium 4.4 mmol/L (3.5-5.1); Sodium 137 mmol/L (136-145)
[2020-10-29 08:03] LABS: Alkaline Phosphatase 85 U/L (45-117); Bilirubin,Total 0.3 mg/dl (0.2-1); Phosphorus 2.4 mg/dl (2.5-4.9); Total Protein 5.3 gm/dl (6.4-8.2)
[2020-10-29] MEDS: guaiFENesin 600 MG TABCR PO SCH ×2 (08:39→20:21)
[2020-10-29] MEDS: ROSUVASTATIN CALCIUM 5 MG TAB PO SCH (08:40)
[2020-10-29] MEDS: dexAMETHasone 6 MG in SYRINGE 0 ML IV SCH (08:42)
--- NOTE | 2020-10-29 10:25 | Critical Care Progress Note ---
Date of Service October 29, 2020 Assessment & Plan (1) Cardiac arrest following intubation: Reason Critically Ill: Severe hypoxemia secondary to COVID-19 PLAN: Neuro: Encephalopathy acute - At risk for anoxic injury given cardiac arrest however this was approximately 2 minutes -At risk given continued hypoxia despite aggressive ventilator settings Resp: COVID-19 pneumonia Acute respiratory distress syndrome Severe hypoxemic respiratory failure PF ratio less than 200 -High PEEP low FiO2 -No significant change in compliance between prone and supine positions Pronation therapy -Cis atracurium infusion x72 hours -10/30 completed now discontinued CV: SVT: Resolved ID: Monitor fever curve GI/Nutrition: N.p.o. while prone Consider bolus feedings when supine Heme: Leukocytosis likely secondary to steroid use DVT prophylaxis: Lovenox 100 mg every 12 Endocrine: ICU hyperglycemia protocol Day 14 of Decadron stop after today Vascular access: Left subclavian placed 10/27 arterial line placed 10/27 Code Status: Full Disposition: ICU (2) Atrial fibrillation: (3) Fever: (4) Anxiety: (5) Hypoxia: (6) 2019 novel coronavirus–infected pneumonia (NCIP)#8211;infected pneumonia (NCIP): (7) Prediabetes: Admission and Anticipated Discharge Date Admission Date: October 15, 2020 Supervising Physician Co-Signing Physician Notes I was present and assisted with the pronating process. Patient tolerated the pronating movement. Subjective No overnight events patient was proned via overnight team Review of Systems Review of Systems: Unobtainable due to endotracheal tube Physical Exam Physical Exam: General: 3 TP Skin: Warm, dry, Head: Atraumatic Ears, nose, mouth and throat: Obscured by endotracheal tube Cardiovascular: Normal peripheral perfusion Respiratory: Ventilator settings reviewed Gastrointestinal: Non distended Musculoskeletal: No deformity Results & Data Results & Data ([facility]) Vital Signs (Past 12 Hours) Vital Signs Temp Pulse Pulse Resp BP BP Pulse Ox 10/29/20 08:10 36.9 C 56 L 165/75 H 94 10/29/20 08:02 55 L 20 95 10/29/20 06:00 54 L 20 157/72 H 94 10/29/20 05:30 65 20 165/72 H 94 10/29/20 05:00 59 L 20 147/61 H 95 10/29/20 04:44 65 20 92 10/29/20 04:30 55 L 20 129/46 L 90 10/29/20 04:00 36.7 C 54 L 136/44 L 89 L 10/29/20 03:30 54 L 20 136/46 L 89 L 10/29/20 03:00 54 L 20 130/48 L 89 L 10/29/20 02:50 61 20 90 10/29/20 02:30 53 L 20 158/71 H 89 L 10/29/20 02:00 59 L 154/73 H 89 L 10/29/20 01:30 56 L 20 163/75 H 89 L 10/29/20 01:00 61 20 156/76 H 88 L 10/29/20 00:30 59 L 20 171/76 H 88 L 10/29/20 00:00 36.8 C 57 L 20 160/77 H 95 10/28/20 23:56 52 L 20 90 10/28/20 23:30 55 L 20 115/58 L 94 10/28/20 23:00 59 L 20 118/54 L 93 10/28/20 22:30 59 L 20 117/57 L 93 Laboratory Results I reviewed the laboratory data for 10/29/2020 Coding Level of Care Code Critical Care ea addt'l 30 min Diagnoses Cardiac arrest following intubation I97.89; I46.9 Atrial fibrillation I48.91 Fever R50.9 Anxiety F41.9 Hypoxia R09.02 2019 novel coronavirus–infected pneumonia ([facility]IP)#8211;infected pneumonia ([facility]) U07.1; J12.89 Prediabetes R73.03 Time Spent (min) 85
[2020-10-29] MEDS ORDERED: POTASSIUM PHOSPHATE 9 MMOL in SODIUM CHLORIDE 0.9% 250 ML IV ONE (10:30)
[2020-10-29] MEDS: PANTOprazole 40 MG in SYRINGE 0 ML IV SCH (12:17)
[2020-10-29] MEDS: MULTI VIT W/MINERALS LIQUID 15 ML UDP PO SCH (15:14)
[2020-10-29] MEDS: CHOLECALCIFEROL 1,000 UNITS 25 MCG TAB PO SCH (15:15)
[2020-10-29] MEDS ORDERED: NOVASOURCE RENAL 2.0 CAL 1000ML BAG OG SCH (15:30)
--- NOTE | 2020-10-29 16:13 | Hospitalist Progress Note ---
Date of Service October 29, 2020 Assessment & Plan (1) Acute respiratory failure with hypoxia: intubated on 10/27, turned prone this morning with PEEP 16, FiO2 50%, improved lung compliance management per Dr. Richards patient required HFNC and BIPAP since admission on 10/15 from 10/25 to 10/27 she could not come off BIPAP she and her family agreed to intubation and mech ventilation she would like her niece Dipak to make decisions for her while on the ventilator (2) Pneumonia due to COVID-19 virus: stop Decadron today, it has been 14 days completed course of Remdesivir, LD 10/19 convalescent plasma on 10/16 prognosis remains guarded but ventilation is her only option to pull through (3) Atrial fibrillation: Patient developed atrial fibrillation in the face of her hypoxic respiratory distress on 10/22 cardiology recommended amiodarone therapy without bolus and 1 dose of digoxin 0.5. Patient reportedly broke and became slightly bradycardic at times in a junctional rhythm continue full anticoagulation for now but may not be necessary not currently on any rate or rhythm control medications continue to monitor on tele, rate in 60's had SVT after brief code blue after intubation (4) Sepsis: Source - COVID-19 +/- possible bacterial PNA completed course of Levaquin sepsis resolved (5) Prediabetes: HbA1C 5.9 in May. Glucose 129 on admission. BSG ACHS and will initially use correction factor only, Novolog in case dexamethasone increases her glucose levels so far BSG have been acceptable (6) Hyperlipidemia: Continue her usual rosuvastatin dosing. (7) GERD (gastroesophageal reflux disease): Continue her usual pantoprazole 40mg PO daily (8) Esophageal dysmotility: Aspiration precautions. (9) Hypothyroidism: TSH 1.31 in Aug. Continue levothyroxine 75 mcg PO daily (10) Anxiety: now on sedation (11) DVT prophylaxis: Lovenox therapeutic Lovenox currently Admission and Anticipated Discharge Date Admission Date: October 15, 2020 Subjective patient remains ventilated prolonged periods of proning, tolerating lung compliance better today on low FiO2, high PEEP settings Review of Systems Review of Systems: Unobtainable due to endotracheal tube Physical Exam Constitutional: well developed, well nourished and + mechanically ventilated (prone) Neck: trachea midline, no thyromegaly Respiratory: symmetric chest movement (ventilated) Auscultation: lungs clear to auscultation bilaterally Cardiovascular: RRR, no murmur, no edema Gastrointestinal (Abdomen): normal bowel sounds, soft, nontender, no hepatosplenomegaly Musculoskeletal: no cyanosis or clubbing, extremities motor strength 5/5 Skin: no rashes, warm and dry Neurologic: + obtunded; no focal motor deficits Psychiatric: Orientation: + not alert Results & Data Results & Data ([facility]) Vital Signs (Past 12 Hours) Vital Signs Temp Pulse Pulse Resp BP BP Pulse Ox 10/29/20 15:49 68 20 92 10/29/20 15:25 36.8 C 10/29/20 12:31 100 H 159/75 H 92 10/29/20 12:30 92 H 92 10/29/20 12:00 98 H 92 10/29/20 11:31 94 H 139/85 92 10/29/20 11:30 89 92 10/29/20 11:13 80 139/85 92 10/29/20 11:10 36.6 C 20 92 10/29/20 11:04 84 93 10/29/20 11:01 101 H 92 10/29/20 11:00 104 H 93 10/29/20 10:45 83 20 90 10/29/20 10:31 76 87 L 10/29/20 10:30 86 87 L 10/29/20 10:00 43 L 161/79 H 93 10/29/20 09:30 47 L 159/74 H 92 10/29/20 09:00 53 L 153/72 H 94 10/29/20 08:30 50 L 155/74 H 95 10/29/20 08:10 36.9 C 56 L 165/75 H 94 10/29/20 08:02 55 L 20 95 10/29/20 08:00 52 L 165/75 H 93 10/29/20 07:30 47 L 158/74 H 94 10/29/20 07:01 59 L 187/78 H 94 10/29/20 07:00 55 L 94 10/29/20 06:00 54 L 20 157/72 H 94 10/29/20 05:30 65 20 165/72 H 94 10/29/20 05:00 59 L 20 147/61 H 95 10/29/20 04:44 65 20 92 10/29/20 04:30 55 L 20 129/46 L 90 Laboratory Results Laboratory Results - last 24 hr 10/29/20 10/29/20 10/29/20 00:06 04:16 04:44 WBC RBC Hgb POC Hgb 11.6 L Hct POC Hct 34 L MCV MCH MCHC RDW Std Deviation RDW Coeff of Mary Plt Count MPV Immature Gran % (Auto) Neut % (Auto) Lymph % (Auto) [place] % (Auto) Eos % (Auto) Baso % (Auto) Neut # (Auto) Lymph # (Auto) [place] # (Auto) Eos # (Auto) Baso # (Auto) Immature Gran # (Auto) PT INR APTT PTT Ratio Sample Site Art Line POC pH 7.33 L POC pCO2 63 H POC pO2 51 L POC HCO3 33 H POC Total CO2 35 H POC Base Excess 7.0 H ABG pH (Temp Correct) 7.336 L ABG pCO2 (Temp Corrct 61 H POC ABG pO2 at Pt Temp 49 POC ABG O2 Sat 82.0 L Kishan Test Pass O2 Delivery Device Ventilator POC O2 Rate 20 Tidal Volume 360 PEEP 16 POC Sodium 134 L Sodium POC Potassium 4.4 Potassium Chloride Carbon Dioxide Anion Gap BUN Creatinine Est Cr Clr Drug Dosing Est GFR ( Amer) Est GFR (Non-Af Amer) BUN/Creatinine Ratio Glucose POC Glucose 158 H 132 H Calcium Phosphorus Magnesium Total Bilirubin Direct Bilirubin AST ALT Alkaline Phosphatase Total Protein Albumin 10/29/20 10/29/20 10/29/20 06:54 06:54 06:54 WBC 14.10 H RBC 3.62 L Hgb 11.4 L POC Hgb Hct 36.1 L POC Hct MCV 99.7 MCH 31.5 MCHC 31.6 L RDW Std Deviation 51.0 H RDW Coeff of Mary 14.0 Plt Count 215 MPV 9.5 Immature Gran % (Auto) 0.9 Neut % (Auto) 94.0 Lymph % (Auto) 3.5 [place] % (Auto) 1.5 Eos % (Auto) 0.1 Baso % (Auto) 0.0 Neut # (Auto) 13.27 H Lymph # (Auto) 0.49 L [place] # (Auto) 0.21 Eos # (Auto) 0.01 Baso # (Auto) 0.00 Immature Gran # (Auto) 0.12 H PT 11.7 INR 1.1 APTT 34.2 H PTT Ratio 1.2 Sample Site POC pH POC pCO2 POC pO2 POC HCO3 POC Total CO2 POC Base Excess ABG pH (Temp Correct) ABG pCO2 (Temp Corrct POC ABG pO2 at Pt Temp POC ABG O2 Sat Kishan Test O2 Delivery Device POC O2 Rate Tidal Volume PEEP POC Sodium Sodium 137 POC Potassium Potassium 4.4 Chloride 102 Carbon Dioxide 34 H Anion Gap 1.0 L BUN 10 Creatinine 0.36 L Est Cr Clr Drug Dosing 170.9 Est GFR ( Amer) 128.4 Est GFR (Non-Af Amer) 110.8 BUN/Creatinine Ratio 28.3 H Glucose 132 H POC Glucose Calcium 8.2 L Phosphorus 2.4 L D Magnesium 2.0 Total Bilirubin 0.3 Direct Bilirubin < 0.1 AST 24 ALT 48 Alkaline Phosphatase 85 Total Protein 5.3 L Albumin 1.5 L 10/29/20 10/29/20 10/29/20 07:47 11:30 16:12 WBC RBC Hgb POC Hgb Hct POC Hct MCV MCH MCHC RDW Std Deviation RDW Coeff of Mary Plt Count MPV Immature Gran % (Auto) Neut % (Auto) Lymph % (Auto) [place] % (Auto) Eos % (Auto) Baso % (Auto) Neut # (Auto) Lymph # (Auto) [place] # (Auto) Eos # (Auto) Baso # (Auto) Immature Gran # (Auto) PT INR APTT PTT Ratio Sample Site POC pH POC pCO2 POC pO2 POC HCO3 POC Total CO2 POC Base Excess ABG pH (Temp Correct) ABG pCO2 (Temp Corrct POC ABG pO2 at Pt Temp POC ABG O2 Sat Kishan Test O2 Delivery Device POC O2 Rate Tidal Volume PEEP POC Sodium Sodium POC Potassium Potassium Chloride Carbon Dioxide Anion Gap BUN Creatinine Est Cr Clr Drug Dosing Est GFR ( Amer) Est GFR (Non-Af Amer) BUN/Creatinine Ratio Glucose POC Glucose 127 H 124 H 124 H Calcium Phosphorus Magnesium Total Bilirubin Direct Bilirubin AST ALT Alkaline Phosphatase Total Protein Albumin 10/29/20 20:20 WBC RBC Hgb POC Hgb Hct POC Hct MCV MCH MCHC RDW Std Deviation RDW Coeff of Mary Plt Count MPV Immature Gran % (Auto) Neut % (Auto) Lymph % (Auto) [place] % (Auto) Eos % (Auto) Baso % (Auto) Neut # (Auto) Lymph # (Auto) [place] # (Auto) Eos # (Auto) Baso # (Auto) Immature Gran # (Auto) PT INR APTT PTT Ratio Sample Site POC pH POC pCO2 POC pO2 POC HCO3 POC Total CO2 POC Base Excess ABG pH (Temp Correct) ABG pCO2 (Temp Corrct POC ABG pO2 at Pt Temp POC ABG O2 Sat Kishan Test O2 Delivery Device POC O2 Rate Tidal Volume PEEP POC Sodium Sodium POC Potassium Potassium Chloride Carbon Dioxide Anion Gap BUN Creatinine Est Cr Clr Drug Dosing Est GFR ( Amer) Est GFR (Non-Af Amer) BUN/Creatinine Ratio Glucose POC Glucose 236 H Calcium Phosphorus Magnesium Total Bilirubin Direct Bilirubin AST ALT Alkaline Phosphatase Total Protein Albumin Medications Administered Current Inpatient Medications Acetaminophen (Acetaminophen 325 Mg Tab) 650 mg PO Q4H PRN PRN Reason: Pain or Fever Stop: 11/14/20 20:32 Last Admin: 10/25/20 10:05 Dose: 650 mg Documented by: Al Hydrox/Mg Hydrox/Simethicone (Aluminum/Magnesium Susp 30 Ml Udc) 15 ml PO Q4H PRN PRN Reason: Dyspepsia Stop: 11/14/20 20:32 Aspirin (Aspirin 81 Mg Chew) 81 mg PO HS HARISH Stop: 11/27/20 20:59 Last Admin: 10/29/20 20:36 Dose: 81 mg Documented by: Dextrose (Dextrose 50% 50 Ml Syringe) 25 - 50 ml IV UD PRN; Protocol PRN Reason: Hypoglycemia Protocol Stop: 11/14/20 20:32 Enoxaparin Sodium (Enoxaparin 100 Mg/1ml Syr) 100 mg SQ Q12H HARISH Stop: 11/22/20 13:14 Last Admin: 10/29/20 12:16 Dose: 100 mg Documented by: Enteral Nutritional Formula (Novasource Renal 2.0 Juan Daniel 1000ml Bag) 1,000 ml OG UD HARISH; Protocol Stop: 11/28/20 15:29 Last Admin: 10/29/20 17:10 Dose: 120 ml Documented by: Fentanyl Citrate (Fentanyl Bolus From Bag) 50 mcg IV Q60M PRN PRN Reason: Pain or Agitation Stop: 11/10/20 12:36 Fluticasone Propionate (Fluticasone Propionate Na Spr 16 Gm Btl) 2 sprays NA HS HARISH Stop: 11/17/20 20:59 Last Admin: 10/29/20 20:22 Dose: Not Given Documented by: Glucagon (Glucagon For Inj 1 Mg Vial) 1 mg SQ UD PRN; Protocol PRN Reason: Hypoglycemia Protocol Stop: 11/14/20 20:32 Glucose (Glucose 10 Tabs/Tube) 4 - 8 tabs PO UD PRN; Protocol PRN Reason: Hypoglycemia Protocol Stop: 11/14/20 20:32 Glucose (Glucose 40% Gel 15 Gm Tube) 15 - 30 gm PO UD PRN; Protocol PRN Reason: Hypoglycemia Protocol Stop: 11/14/20 20:32 Guaifenesin (Guaifenesin 600 Mg Tabcr) 1,200 mg PO Q12 HARISH Stop: 11/21/20 20:59 Last Admin: 10/29/20 20:21 Dose: Not Given Documented by: Heparin Sodium (Beef Lung) (Heparin 10 Unit/Ml 5 Ml Flush) 5 ml FLUSH PRN PRN PRN Reason: Flush Stop: 11/27/20 22:57 Dextrose/Sodium Chloride (D5w And 1/2nss) 1,000 mls @ 80 mls/hr IV .[id number] HARISH Stop: 11/25/20 09:59 Last Infusion: 10/29/20 18:36 Dose: 80 mls/hr Documented by: Cisatracurium Besylate 40 mg/ (Sodium Chloride) 100 mls @ 16.41 mls/hr IV .Q6H6M HARISH; Protocol Stop: 10/30/20 13:00 Last Titration: 10/29/20 19:04 Dose: 2 mcg/kg/min, 16.4 mls/hr Documented by: Midazolam HCl (Versed) 125 mg in 250 mls @ 2 mls/hr IV .Q96H [facility]; Protocol Stop: 11/26/20 12:44 Last Titration: 10/29/20 19:04 Dose: 4 mg/hr, 8 mls/hr Documented by: Fentanyl Citrate (Fentanyl Drip) 1,250 mcg in 250 mls @ 5 mls/hr IV .Q50H HARISH; Protocol Stop: 11/10/20 12:44 Last Titration: 10/29/20 19:04 Dose: 100 mcg/hr, 20 mls/hr Documented by: Pantoprazole Sodium 40 mg/ (Syringe) 10 mls @ 5 mls/min IV DAILY@1200 HARISH Stop: 11/28/20 11:59 Last Admin: 10/29/20 12:17 Dose: 5 mls/min Documented by: Insulin Aspart (Insulin Aspart 100 Units/Ml 3 Ml Pen) 0 units SC Q4 [facility]; Protocol Stop: 11/27/20 15:59 Last Admin: 10/29/20 20:23 Dose: 7 units Documented by: Levothyroxine Sodium (Levothyroxine Sodium 75 Mcg Tablet) 75 mcg PO DAILYBB [facility] Stop: 11/15/20 06:29 Last Admin: 10/29/20 05:26 Dose: 75 mcg Documented by: Melatonin (Melatonin 3 Mg Tab) 3 mg PO HS [facility] Stop: 11/20/20 23:04 Last Admin: 10/29/20 20:21 Dose: Not Given Documented by: Meloxicam (Meloxicam 7.5 Mg Tab) 15 mg PO DAILY PRN PRN Reason: Pain Stop: 11/14/20 20:32 Last Admin: 10/16/20 08:58 Dose: 15 mg Documented by: Metoprolol Tartrate (Metoprolol Tartrate 1 Mg/Ml Vial) 5 mg IV Q4 PRN PRN Reason: sbp> 185, dbp >95, HR >120 Stop: 11/21/20 11:26 Last Admin: 10/29/20 17:35 Dose: 5 mg Documented by: Midazolam HCl (Midazolam Bolus From Bag) 2 mg IV Q60M PRN PRN Reason: Sedation Stop: 11/26/20 12:36 Miscellaneous (Carbohydrates For Hypoglycemia ) 15 - 30 gm PO UD PRN PRN Reason: Hypoglycemia Protocol Stop: 11/14/20 20:32 Miscellaneous (Cisatracurium - Stop Order) 1 ea N/A TODAY@1300 ONE Stop: 10/30/20 13:01 Multi-Ingredient Cream (Artificial Tears Op Oint 3.5 Gm Tube) 1 appln OP Q4 [facility] Stop: 11/26/20 16:06 Last Admin: 10/29/20 20:29 Dose: 1 appln Documented by: Multivitamins/Minerals (Multi Vit W/Minerals Liquid 15 Ml Udp) 15 ml PO DAILY@1200 HARISH Stop: 11/28/20 11:59 Last Admin: 10/29/20 15:14 Dose: 15 ml Documented by: Nutritional Formula (Prosource No Carb 30 Ml/Pkt) 30 ml OG TID [facility] Stop: 11/28/20 20:59 Ondansetron HCl (Ondansetron 4 Mg Od Tab) 4 mg PO Q8H PRN PRN Reason: nausea Stop: 11/14/20 20:53 Last Admin: 10/17/20 22:46 Dose: 4 mg Documented by: Polyethylene Glycol (Polyethylene (Miralax) 17 Gm Pack) 17 gm PO DAILY PRN PRN Reason: Constipation Stop: 11/14/20 20:32 Rosuvastatin Calcium (Rosuvastatin Calcium 5 Mg Tab) 5 mg PO MoWeFr@0900 [facility] Stop: 11/17/20 08:59 Last Admin: 10/29/20 08:40 Dose: Not Given Documented by: Sodium Chloride (Sodium Chloride 0.65% Na Soln 45 Ml ([place])) 2 sprays ABRAHAN QID PRN PRN Reason: Congestion Stop: 11/17/20 10:45 Last Admin: 10/18/20 14:56 Dose: 2 sprays Documented by: Vitamin D (Cholecalciferol 1,000 Units 25 Mcg Tab) 2,000 units PO DAILY@1200 [facility] Stop: 11/15/20 11:59 Last Admin: 10/29/20 15:15 Dose: 2,000 units Documented by: PG Care Time/CCT Total # of Minutes Spent Total Time Spent with Patient: Total time spent is greater than 50% in coordination of care (as documented) at patient's floor/unit and/or counseling patient: Coding Level of Care Code 05808 Subseq Hosp Care Lvl 2 Diagnoses Acute respiratory failure with hypoxia J96.01 Pneumonia due to COVID-19 virus U07.1; J12.89 Atrial fibrillation I48.91 Sepsis A41.9 Sepsis acute organ dysfunction status: unspecified Sepsis type: sepsis due to unspecified organism Prediabetes R73.03 Hyperlipidemia E78.5 GERD (gastroesophageal reflux disease) K21.9 Esophageal dysmotility K22.4 Hypothyroidism E03.9 Anxiety F41.9 DVT prophylaxis Z29.9 (1) Sepsis Sepsis acute organ dysfunction status: unspecified Sepsis type: sepsis due to unspecified organism Qualified Code(s): A41.9 - Sepsis, unspecified organism
[2020-10-29] MEDS: METOPROLOL TARTRATE 1 MG/ML VIAL IV PRN (17:35)
[2020-10-29] MEDS: MELATONIN 3 MG TAB PO SCH (20:21)
[2020-10-29] MEDS: FLUTICASONE PROPIONATE NA SPR 16 GM BTL SCH (20:22)
[2020-10-29] MEDS: ASPIRIN 81 MG CHEW PO SCH (20:36)
--- NOTE | 2020-10-29 21:07 | Communication Note ---
Date of Service: October 29, 2020 2100: Patient was evaluated bedside. In conversation with attending physician at change of shift, the patient is requiring proning procedure for increasing airway recruitment as well as for hopes of improving ventilator settings. After assembling appropriate staff including respiratory therapy and nursing staff, the patient was placed into the prone position without issue. The patient's oxygen saturations immediately improved. Patient tolerated intervention well. Changes to ventilator settings will be made throughout the evening. No immedia te complications were met. I have personally spent 25 minutes of critical care time in the direct management of this patient. This is a life/limb threatening event. This includes time spent evaluating patient, direct bedside care, chart review, placing orders, interpretation of diagnostic studies, discussion with consultants, patient, and family members, as well as other required patient management activities. This time is exclusive of all separately billable procedures, and teaching time and separate from and in addition to any other critical care service time. Coding Level of Care Code Critical Care doug addt'l 30 min Time Spent (min) 25
[2020-10-29] MEDS: PROSOURCE NO CARB 30 ML/PKT OG SCH (21:43)
[2020-10-30] MEDS: INSULIN ASPART 100 UNITS/ML 3 ML PEN SC SCH ×7 (00:36→23:52)
[2020-10-30] MEDS: ARTIFICIAL TEARS OP OINT 3.5 GM TUBE OP SCH ×7 (00:37→23:51)
[2020-10-30] MEDS: ENOXAPARIN 100 MG/1ML SYR SQ SCH ×2 (03:09→12:14)
[2020-10-30] MEDS: fentaNYL DRIP 1,250 MCG/250 ML BAG IV SCH ×3 (03:11→20:05)
[2020-10-30] MEDS: MIDAZOLAM HCL 125 MG/250 ML BAG IV SCH (03:43)
[2020-10-30 04:07] LABS: iSTAT Art Bld Gas pCO2 Correct 66 mmHg (35-46); iSTAT Art Bld Gas pH Corrected 7.341 (7.35-7.45); iSTAT Arterial Blood Gas HCO3 36 meg/L (19-24); iSTAT Arterial Blood Gas pCO2 67 mmHg (35-46); iSTAT Arterial Blood Gas pH 7.34 (7.35-7.45); iSTAT Arterial Blood Gas pO2 63 mmHg (80-95); iSTAT Arterial Blood Gas pO2 C 62; iSTAT Carbon Dioxide 38 mmol/L (24-31); iSTAT Hematocrit 34 % (37-47); iSTAT Hemoglobin 11.6 g/dl (12.0-16.0); iSTAT Potassium 5.4 mmol/L (3.3-5.0); iSTAT Site Art Line; iSTAT Sodium 134 mmol/L (135-144)
[2020-10-30] MEDS: LEVOTHYROXINE SODIUM 75 MCG TABLET PO SCH (05:32)
[2020-10-30] MEDS: CISATRACURIUM BESYLATE 40 MG in 0.9 % SODIUM CHLORIDE 80 ML IV SCH ×3 (05:32→16:52)
[2020-10-30 06:48] LABS: Basophils # (auto) 0.01 K/uL (0-0.2); Basophils % (auto) 0.1 %; Eosinophils # (auto) 0.01 K/uL (0-0.5); Eosinophils % (auto) 0.1 %; Hematocrit (blood only) 36.7 % (37-47); Hemoglobin 11.7 g/dL (12.0-16.0); Immature Granulocytes # (auto) 0.21 K/uL (0.00-0.02); Immature Granulocytes % (auto) 1.6 %; Lymphocytes # (auto) 0.72 K/uL (1.2-3.4); Lymphocytes % (auto) 5.5 %; Mean Corpuscular Hemoglobin 31.5 pg (25-34); Mean Corpuscular Hgb Conc 31.9 g/dL (32-36); Mean Corpuscular Volume 98.9 fL (80-100); Mean Platelet Volume 9.3 fL (7.4-10.4); Monocytes # (auto) 0.28 K/uL (0.11-0.59); Monocytes % (auto) 2.1 %; Neutrophils # (auto) 11.85 K/uL (1.4-6.5); Neutrophils % (auto) 90.6 %; Platelet Count 224 K/uL (130-400); RDW Coefficient of Variation 13.9 % (11.5-14.5); RDW Standard Deviation 49.6 fL (36.4-46.3); Red Blood Count 3.71 M/uL (4.2-5.4); White Blood Count 13.08 K/uL (4.8-10.8)
[2020-10-30 07:01] LABS: INR 1.1 (0.9-1.1); Partial Thromboplastin Ratio 1.1; Partial Thromboplastin Time 31.3 Seconds (21.0-31.0); Prothrombin Time 11.4 Seconds (9.0-12.0)
[2020-10-30 07:15] LABS: Albumin Level 1.7 gm/dl (3.4-5.0); BUN Creatinine Ratio 30.2 (10-20); Bilirubin Direct 0.1 mg/dl (0-0.2); Calcium 8.5 mg/dl (8.5-10.1); Creatinine Clr Calc Pharmacy 153.8 ml/min; Magnesium 1.9 mg/dl (1.8-2.4); Potassium 4.4 mmol/L (3.5-5.1)
[2020-10-30 07:18] LABS: Bilirubin,Total 0.3 mg/dl (0.2-1); Phosphorus 2.5 mg/dl (2.5-4.9); Total Protein 5.4 gm/dl (6.4-8.2)
[2020-10-30] MEDS: guaiFENesin 600 MG TABCR PO SCH ×2 (08:35→19:42)
[2020-10-30] MEDS: PROSOURCE NO CARB 30 ML/PKT OG SCH ×3 (08:35→19:43)
[2020-10-30] MEDS: D5W AND 1/2NSS 1,000 ML IV SCH (10:21)
[2020-10-30] MEDS: PANTOprazole 40 MG in SYRINGE 0 ML IV SCH (12:14)
[2020-10-30] MEDS: MULTI VIT W/MINERALS LIQUID 15 ML UDP PO SCH (12:14)
[2020-10-30] MEDS: CHOLECALCIFEROL 1,000 UNITS 25 MCG TAB PO SCH (12:15)
[2020-10-30] MEDS ORDERED: CISATRACURIUM - STOP ORDER ONE (13:00)
--- NOTE | 2020-10-30 13:59 | Critical Care Progress Note ---
Date of Service October 30, 2020 Assessment & Plan (1) Cardiac arrest following intubation: Reason Critically Ill: Severe hypoxemia secondary to COVID-19 PLAN: Neuro: Encephalopathy acute - At risk for anoxic injury given cardiac arrest however this was approximately 2 minutes -At risk given continued hypoxia despite aggressive ventilator settings Sedation and analgesia -Goal RASS -4 negative for while in prone position Resp: COVID-19 pneumonia Acute respiratory distress syndrome Severe hypoxemic respiratory failure PF ratio less than 200 -High PEEP low FiO2 -No significant change in compliance between prone and supine positions Pronation therapy -Cis atracurium infusion x72 hours 10/27/-10/30 completed after return to supine CV: SVT: Resolved ID: Monitor fever curve GI/Nutrition: N.p.o. while prone - Nova source 180 mL/h x 4 hours when supine -1 Prosource Heme: Leukocytosis likely secondary to steroid use DVT prophylaxis: Lovenox 100 mg every 12 Endocrine: ICU hyperglycemia protocol Day 14 of Decadron stop after today Vascular access: Left subclavian placed 10/27 arterial line placed 10/27 Code Status: Full Disposition: ICU (2) Atrial fibrillation: (3) Fever: (4) Anxiety: (5) Hypoxia: (6) 2019 novel coronavirus–infected pneumonia (NCIP)#8211;infected pneumonia (NCIP): (7) Prediabetes: Admission and Anticipated Discharge Date Admission Date: October 15, 2020 Supervising Physician Co-Signing Physician Notes I was present and assisted with the pronating process. Patient tolerated the pronating movement. I have personally spent 85 minutes of critical care time in the direct management of this patient. This is a life/limb threatening event. This includes time spent evaluating patient, direct bedside care, chart review, placing orders, interpretation of diagnostic studies, discussion with cons ultants, patient, and/or family members regarding treatment decisions, as well as other required patient management activities. This time is exclusive of all separately billable procedures, and teaching time and separate from and in addition to any other critical care service time. Subjective No overnight events, patient remains heavily sedated Review of Systems Review of Systems: Unobtainable due to endotracheal tube Physical Exam Physical Exam: General: 3P, RASS -4 Skin: Warm, dry, Head: Atraumatic Ears, nose, mouth and throat: Obscured by endotracheal tube Cardiovascular: Normal peripheral perfusion Respiratory: Ventilator settings reviewed, PEEP 16 FiO2 50% Gastrointestinal: Non distended Musculoskeletal: No deformity Results & Data Results & Data ([facility]) Vital Signs (Past 12 Hours) Vital Signs Pulse Resp BP Pulse Ox 10/30/20 12:00 53 L 154/48 H 10/30/20 11:44 53 L 20 92 10/30/20 08:00 58 L 120/43 L 10/30/20 07:58 58 L 20 93 10/30/20 06:31 63 191/80 H 92 10/30/20 06:00 56 L 117/65 93 10/30/20 05:31 61 166/79 H 91 10/30/20 05:00 71 133/77 93 10/30/20 04:30 64 143/75 H 92 10/30/20 04:00 64 214/90 H 91 10/30/20 03:56 84 20 90 10/30/20 03:30 68 140/73 91 10/30/20 03:00 60 138/75 92 10/30/20 02:30 69 137/73 91 10/30/20 02:00 61 154/75 H 90 Laboratory Results 10/30/20 10/30/20 10/30/20 Range/Units 11:32 08:30 06:24 WBC (4.8-10.8) K/uL RBC (4.2-5.4) M/uL Hgb (12.0-16.0) g/dL POC Hgb (12.0-16.0) g/dl Hct (37-47) % POC Hct (37-47) % MCV (80-100) fL MCH (25-34) pg MCHC (32-36) g/dL RDW Std Deviation (36.4-46.3) fL RDW Coeff of Mary (11.5-14.5) % Plt Count (130-400) K/uL MPV (7.4-10.4) fL Immature Gran % (Auto) % Neut % (Auto) % Lymph % (Auto) % [place] % (Auto) % Eos % (Auto) % Baso % (Auto) % Neut # (Auto) (1.4-6.5) K/uL Lymph # (Auto) (1.2-3.4) K/uL [place] # (Auto) (0.11-0.59) K/uL Eos # (Auto) (0-0.5) K/uL Baso # (Auto) (0-0.2) K/uL Immature Gran # (Auto) (0.00-0.02) K/uL PT (9.0-12.0) Seconds INR (0.9-1.1) APTT (21.0-31.0) Seconds PTT Ratio Sample Site POC pH (7.35-7.45) POC pCO2 (35-46) mmHg POC pO2 (80-95) mmHg POC HCO3 (19-24) beau/L POC Total CO2 (24-31) mmol/L POC Base Excess (-9-1.8) baeu/L ABG pH (Temp Correct) (7.35-7.45) ABG pCO2 (Temp Corrct (35-46) mmHg POC ABG pO2 at Pt Temp POC ABG O2 Sat (90-95) % Kishan Test O2 Delivery Device POC O2 Rate Minute Ventilation Tidal Volume PEEP POC Sodium (135-144) mmol/L Sodium 137 (136-145) mmol/L POC Potassium (3.3-5.0) mmol/L Potassium 4.4 (3.5-5.1) mmol/L Chloride 102 (98-107) mmol/L Carbon Dioxide 34 H (21-32) mmol/L Anion Gap 1.0 L (3-11) BUN 12 (7-18) mg/dl Creatinine 0.40 L (0.6-1.2) mg/dl Est Cr Clr Drug Dosing 153.8 ml/min Est GFR ( Amer) 124.0 Est GFR (Non-Af Amer) 107.0 BUN/Creatinine Ratio 30.2 H (10-20) Glucose 136 H (70-99) mg/dl POC Glucose 127 H 147 H (70-99) mg/dl Calcium 8.5 (8.5-10.1) mg/dl Phosphorus 2.5 (2.5-4.9) mg/dl Magnesium 1.9 (1.8-2.4) mg/dl Total Bilirubin 0.3 (0.2-1) mg/dl Direct Bilirubin 0.1 (0-0.2) mg/dl AST 22 (15-37) U/L ALT 52 (12-78) U/L Alkaline Phosphatase 90 (45-117) U/L Total Protein 5.4 L (6.4-8.2) gm/dl Albumin 1.7 L (3.4-5.0) gm/dl 10/30/20 10/30/20 10/30/20 Range/Units 06:24 06:24 03:57 WBC 13.08 H (4.8-10.8) K/uL RBC 3.71 L (4.2-5.4) M/uL Hgb 11.7 L (12.0-16.0) g/dL POC Hgb (12.0-16.0) g/dl Hct 36.7 L (37-47) % POC Hct (37-47) % MCV 98.9 (80-100) fL MCH 31.5 (25-34) pg MCHC 31.9 L (32-36) g/dL RDW Std Deviation 49.6 H (36.4-46.3) fL RDW Coeff of Mary 13.9 (11.5-14.5) % Plt Count 224 (130-400) K/uL MPV 9.3 (7.4-10.4) fL Immature Gran % (Auto) 1.6 % Neut % (Auto) 90.6 % Lymph % (Auto) 5.5 % [place] % (Auto) 2.1 % Eos % (Auto) 0.1 % Baso % (Auto) 0.1 % Neut # (Auto) 11.85 H (1.4-6.5) K/uL Lymph # (Auto) 0.72 L (1.2-3.4) K/uL [place] # (Auto) 0.28 (0.11-0.59) K/uL Eos # (Auto) 0.01 (0-0.5) K/uL Baso # (Auto) 0.01 (0-0.2) K/uL Immature Gran # (Auto) 0.21 H (0.00-0.02) K/uL PT 11.4 (9.0-12.0) Seconds INR 1.1 (0.9-1.1) APTT 31.3 H (21.0-31.0) Seconds PTT Ratio 1.1 Sample Site POC pH (7.35-7.45) POC pCO2 (35-46) mmHg POC pO2 (80-95) mmHg POC HCO3 (19-24) beau/L POC Total CO2 (24-31) mmol/L POC Base Excess (-9-1.8) beau/L ABG pH (Temp Correct) (7.35-7.45) ABG pCO2 (Temp Corrct (35-46) mmHg POC ABG pO2 at Pt Temp POC ABG O2 Sat (90-95) % Kishan Test O2 Delivery Device POC O2 Rate Minute Ventilation Tidal Volume PEEP POC Sodium (135-144) mmol/L Sodium (136-145) mmol/L POC Potassium (3.3-5.0) mmol/L Potassium (3.5-5.1) mmol/L Chloride (98-107) mmol/L Carbon Dioxide (21-32) mmol/L Anion Gap (3-11) BUN (7-18) mg/dl Creatinine (0.6-1.2) mg/dl Est Cr Clr Drug Dosing ml/min Est GFR ( Amer) Est GFR (Non-Af Amer) BUN/Creatinine Ratio (10-20) Glucose (70-99) mg/dl POC Glucose 147 H (70-99) mg/dl Calcium (8.5-10.1) mg/dl Phosphorus (2.5-4.9) mg/dl Magnesium (1.8-2.4) mg/dl Total Bilirubin (0.2-1) mg/dl Direct Bilirubin (0-0.2) mg/dl AST (15-37) U/L ALT (12-78) U/L Alkaline Phosphatase (45-117) U/L Total Protein (6.4-8.2) gm/dl Albumin (3.4-5.0) gm/dl 10/30/20 10/30/20 10/29/20 Range/Units 03:51 00:34 20:20 WBC (4.8-10.8) K/uL RBC (4.2-5.4) M/uL Hgb (12.0-16.0) g/dL POC Hgb 11.6 L (12.0-16.0) g/dl Hct (37-47) % POC Hct 34 L (37-47) % MCV (80-100) fL MCH (25-34) pg MCHC (32-36) g/dL RDW Std Deviation (36.4-46.3) fL RDW Coeff of Mary (11.5-14.5) % Plt Count (130-400) K/uL MPV (7.4-10.4) fL Immature Gran % (Auto) % Neut % (Auto) % Lymph % (Auto) % [place] % (Auto) % Eos % (Auto) % Baso % (Auto) % Neut # (Auto) (1.4-6.5) K/uL Lymph # (Auto) (1.2-3.4) K/uL [place] # (Auto) (0.11-0.59) K/uL Eos # (Auto) (0-0.5) K/uL Baso # (Auto) (0-0.2) K/uL Immature Gran # (Auto) (0.00-0.02) K/uL PT (9.0-12.0) Seconds INR (0.9-1.1) APTT (21.0-31.0) Seconds PTT Ratio Sample Site Art Line POC pH 7.34 L (7.35-7.45) POC pCO2 67 H (35-46) mmHg POC pO2 63 L (80-95) mmHg POC HCO3 36 H (19-24) beau/L POC Total CO2 38 H (24-31) mmol/L POC Base Excess 10.0 H (-9-1.8) beau/L ABG pH (Temp Correct) 7.341 L (7.35-7.45) ABG pCO2 (Temp Corrct 66 H (35-46) mmHg POC ABG pO2 at Pt Temp 62 POC ABG O2 Sat 89.0 L (90-95) % Kishan Test NA O2 Delivery Device Ventilator POC O2 Rate 20 Minute Ventilation 7.0 Tidal Volume 360 PEEP 16 POC Sodium 134 L (135-144) mmol/L Sodium (136-145) mmol/L POC Potassium 5.4 H (3.3-5.0) mmol/L Potassium (3.5-5.1) mmol/L Chloride (98-107) mmol/L Carbon Dioxide (21-32) mmol/L Anion Gap (3-11) BUN (7-18) mg/dl Creatinine (0.6-1.2) mg/dl Est Cr Clr Drug Dosing ml/min Est GFR ( Amer) Est GFR (Non-Af Amer) BUN/Creatinine Ratio (10-20) Glucose (70-99) mg/dl POC Glucose 174 H 236 H (70-99) mg/dl Calcium (8.5-10.1) mg/dl Phosphorus (2.5-4.9) mg/dl Magnesium (1.8-2.4) mg/dl Total Bilirubin (0.2-1) mg/dl Direct Bilirubin (0-0.2) mg/dl AST (15-37) U/L ALT (12-78) U/L Alkaline Phosphatase (45-117) U/L Total Protein (6.4-8.2) gm/dl Albumin (3.4-5.0) gm/dl 10/29/20 Range/Units 16:12 WBC (4.8-10.8) K/uL RBC (4.2-5.4) M/uL Hgb (12.0-16.0) g/dL POC Hgb (12.0-16.0) g/dl Hct (37-47) % POC Hct (37-47) % MCV (80-100) fL MCH (25-34) pg MCHC (32-36) g/dL RDW Std Deviation (36.4-46.3) fL RDW Coeff of Mary (11.5-14.5) % Plt Count (130-400) K/uL MPV (7.4-10.4) fL Immature Gran % (Auto) % Neut % (Auto) % Lymph % (Auto) % [place] % (Auto) % Eos % (Auto) % Baso % (Auto) % Neut # (Auto) (1.4-6.5) K/uL Lymph # (Auto) (1.2-3.4) K/uL [place] # (Auto) (0.11-0.59) K/uL Eos # (Auto) (0-0.5) K/uL Baso # (Auto) (0-0.2) K/uL Immature Gran # (Auto) (0.00-0.02) K/uL PT (9.0-12.0) Seconds INR (0.9-1.1) APTT (21.0-31.0) Seconds PTT Ratio Sample Site POC pH (7.35-7.45) POC pCO2 (35-46) mmHg POC pO2 (80-95) mmHg POC HCO3 (19-24) beau/L POC Total CO2 (24-31) mmol/L POC Base Excess (-9-1.8) beau/L ABG pH (Temp Correct) (7.35-7.45) ABG pCO2 (Temp Corrct (35-46) mmHg POC ABG pO2 at Pt Temp POC ABG O2 Sat (90-95) % Kishan Test O2 Delivery Device POC O2 Rate Minute Ventilation Tidal Volume PEEP POC Sodium (135-144) mmol/L Sodium (136-145) mmol/L POC Potassium (3.3-5.0) mmol/L Potassium (3.5-5.1) mmol/L Chloride (98-107) mmol/L Carbon Dioxide (21-32) mmol/L Anion Gap (3-11) BUN (7-18) mg/dl Creatinine (0.6-1.2) mg/dl Est Cr Clr Drug Dosing ml/min Est GFR ( Amer) Est GFR (Non-Af Amer) BUN/Creatinine Ratio (10-20) Glucose (70-99) mg/dl POC Glucose 124 H (70-99) mg/dl Calcium (8.5-10.1) mg/dl Phosphorus (2.5-4.9) mg/dl Magnesium (1.8-2.4) mg/dl Total Bilirubin (0.2-1) mg/dl Direct Bilirubin (0-0.2) mg/dl AST (15-37) U/L ALT (12-78) U/L Alkaline Phosphatase (45-117) U/L Total Protein (6.4-8.2) gm/dl Albumin (3.4-5.0) gm/dl Diagnostic Findings Chest x-ray ordered for when patient returns to supine position Coding Level of Care Code Critical Care ea addt'l 30 min Diagnoses Cardiac arrest following intubation I97.89; I46.9 Atrial fibrillation I48.91 Fever R50.9 Anxiety F41.9 Hypoxia R09.02 2019 novel coronavirus–infected pneumonia (NCIP)#8211;infected pneumonia (NCIP) U07.1; J12.89 Prediabetes R73.03
[2020-10-30] MEDS ORDERED: Nursing to Pharmacy Communication SCH (14:15)
--- NOTE | 2020-10-30 15:08 | Hospitalist Progress Note ---
Date of Service October 30, 2020 Assessment & Plan (1) Acute respiratory failure with hypoxia: intubated on 10/27, turned prone ARDSnet settings with high PEEP and low FiO2 today is day 3 of mechanical ventilation management per Dr. Richards patient required HFNC and BIPAP since admission on 10/15 from 10/25 to 10/27 she could not come off BIPAP she and her family agreed to intubation and mech ventilation she would like her niece Dipak to make decisions for her while on the ventilator (2) Pneumonia due to COVID-19 virus: stop Decadron 10/29, it has been 14 days completed course of Remdesivir, LD 10/19 convalescent plasma on 10/16 prognosis remains guarded but ventilation is her only option to pull through, day 3 of mechanical ventilation (3) Atrial fibrillation: Patient developed atrial fibrillation in the face of her hypoxic respiratory distress on 10/22 cardiology recommended amiodarone therapy without bolus and 1 dose of digoxin 0.5. Patient reportedly broke and became slightly bradycardic at times in a junctional rhythm continue full anticoagulation for now but may not be necessary not currently on any rate or rhythm control medications continue to monitor on tele, rate in 60's had SVT after brief code blue after intubation (4) Sepsis: Source - COVID-19 +/- possible bacterial PNA completed course of Levaquin sepsis resolved (5) Prediabetes: HbA1C 5.9 in May. Glucose 129 on admission. BSG ACHS and will initially use correction factor only, Novolog in case dexamethasone increases her glucose levels so far BSG have been acceptable (6) Hyperlipidemia: Continue her usual rosuvastatin dosing. (7) GERD (gastroesophageal reflux disease): Continue her usual pantoprazole 40mg PO daily (8) Esophageal dysmotility: Aspiration precautions. (9) Hypothyroidism: TSH 1.31 in Aug. Continue levothyroxine 75 mcg PO daily (10) Anxiety: now on sedation (11) DVT prophylaxis: Lovenox therapeutic Lovenox currently Admission and Anticipated Discharge Date Admission Date: October 15, 2020 Subjective patient prone on vent no major issues overnight per RN defer to Dr. Richards who is managing Review of Systems Review of Systems: Unobtainable due to endotracheal tube Physical Exam Constitutional: well developed, well nourished and + mechanically ventilated (prone) Neck: trachea midline, no thyromegaly Respiratory: symmetric chest movement (ventilated) Auscultation: lungs clear to auscultation bilaterally Cardiovascular: RRR, no murmur, no edema Gastrointestinal (Abdomen): normal bowel sounds, soft, nontender, no hepatosplenomegaly Skin: no rashes, warm and dry Neurologic: + obtunded; no focal motor deficits Psychiatric: Orientation: + not alert Results & Data Results & Data ([facility]) Vital Signs (Past 12 Hours) Vital Signs Pulse Resp BP Pulse Ox 10/30/20 12:00 53 L 154/48 H 10/30/20 11:44 53 L 20 92 10/30/20 08:00 58 L 120/43 L 10/30/20 07:58 58 L 20 93 10/30/20 06:31 63 191/80 H 92 10/30/20 06:00 56 L 117/65 93 10/30/20 05:31 61 166/79 H 91 10/30/20 05:00 71 133/77 93 10/30/20 04:30 64 143/75 H 92 10/30/20 04:00 64 214/90 H 91 10/30/20 03:56 84 20 90 10/30/20 03:30 68 140/73 91 Laboratory Results Laboratory Results - last 24 hr 10/29/20 10/29/20 10/30/20 16:12 20:20 00:34 WBC RBC Hgb POC Hgb Hct POC Hct MCV MCH MCHC RDW Std Deviation RDW Coeff of Mary Plt Count MPV Immature Gran % (Auto) Neut % (Auto) Lymph % (Auto) Angelina % (Auto) Eos % (Auto) Baso % (Auto) Neut # (Auto) Lymph # (Auto) Angelina # (Auto) Eos # (Auto) Baso # (Auto) Immature Gran # (Auto) PT INR APTT PTT Ratio Sample Site POC pH POC pCO2 POC pO2 POC HCO3 POC Total CO2 POC Base Excess ABG pH (Temp Correct) ABG pCO2 (Temp Corrct POC ABG pO2 at Pt Temp POC ABG O2 Sat Kishan Test O2 Delivery Device POC O2 Rate Minute Ventilation Tidal Volume PEEP POC Sodium Sodium POC Potassium Potassium Chloride Carbon Dioxide Anion Gap BUN Creatinine Est Cr Clr Drug Dosing Est GFR ( Amer) Est GFR (Non-Af Amer) BUN/Creatinine Ratio Glucose POC Glucose 124 H 236 H 174 H Calcium Phosphorus Magnesium Total Bilirubin Direct Bilirubin AST ALT Alkaline Phosphatase Total Protein Albumin 10/30/20 10/30/20 10/30/20 03:51 03:57 06:24 WBC 13.08 H RBC 3.71 L Hgb 11.7 L POC Hgb 11.6 L Hct 36.7 L POC Hct 34 L MCV 98.9 MCH 31.5 MCHC 31.9 L RDW Std Deviation 49.6 H RDW Coeff of Mary 13.9 Plt Count 224 MPV 9.3 Immature Gran % (Auto) 1.6 Neut % (Auto) 90.6 Lymph % (Auto) 5.5 Angelina % (Auto) 2.1 Eos % (Auto) 0.1 Baso % (Auto) 0.1 Neut # (Auto) 11.85 H Lymph # (Auto) 0.72 L Angelina # (Auto) 0.28 Eos # (Auto) 0.01 Baso # (Auto) 0.01 Immature Gran # (Auto) 0.21 H PT INR APTT PTT Ratio Sample Site Art Line POC pH 7.34 L POC pCO2 67 H POC pO2 63 L POC HCO3 36 H POC Total CO2 38 H POC Base Excess 10.0 H ABG pH (Temp Correct) 7.341 L ABG pCO2 (Temp Corrct 66 H POC ABG pO2 at Pt Temp 62 POC ABG O2 Sat 89.0 L Kishan Test NA O2 Delivery Device Ventilator POC O2 Rate 20 Minute Ventilation 7.0 Tidal Volume 360 PEEP 16 POC Sodium 134 L Sodium POC Potassium 5.4 H Potassium Chloride Carbon Dioxide Anion Gap BUN Creatinine Est Cr Clr Drug Dosing Est GFR ( Amer) Est GFR (Non-Af Amer) BUN/Creatinine Ratio Glucose POC Glucose 147 H Calcium Phosphorus Magnesium Total Bilirubin Direct Bilirubin AST ALT Alkaline Phosphatase Total Protein Albumin 10/30/20 10/30/20 10/30/20 06:24 06:24 08:30 WBC RBC Hgb POC Hgb Hct POC Hct MCV MCH MCHC RDW Std Deviation RDW Coeff of Mary Plt Count MPV Immature Gran % (Auto) Neut % (Auto) Lymph % (Auto) Angelina % (Auto) Eos % (Auto) Baso % (Auto) Neut # (Auto) Lymph # (Auto) Angelina # (Auto) Eos # (Auto) Baso # (Auto) Immature Gran # (Auto) PT 11.4 INR 1.1 APTT 31.3 H PTT Ratio 1.1 Sample Site POC pH POC pCO2 POC pO2 POC HCO3 POC Total CO2 POC Base Excess ABG pH (Temp Correct) ABG pCO2 (Temp Corrct POC ABG pO2 at Pt Temp POC ABG O2 Sat Kishan Test O2 Delivery Device POC O2 Rate Minute Ventilation Tidal Volume PEEP POC Sodium Sodium 137 POC Potassium Potassium 4.4 Chloride 102 Carbon Dioxide 34 H Anion Gap 1.0 L BUN 12 Creatinine 0.40 L Est Cr Clr Drug Dosing 153.8 Est GFR ( Amer) 124.0 Est GFR (Non-Af Amer) 107.0 BUN/Creatinine Ratio 30.2 H Glucose 136 H POC Glucose 147 H Calcium 8.5 Phosphorus 2.5 Magnesium 1.9 Total Bilirubin 0.3 Direct Bilirubin 0.1 AST 22 ALT 52 Alkaline Phosphatase 90 Total Protein 5.4 L Albumin 1.7 L 10/30/20 11:32 WBC RBC Hgb POC Hgb Hct POC Hct MCV MCH MCHC RDW Std Deviation RDW Coeff of Mary Plt Count MPV Immature Gran % (Auto) Neut % (Auto) Lymph % (Auto) Angelina % (Auto) Eos % (Auto) Baso % (Auto) Neut # (Auto) Lymph # (Auto) Angelina # (Auto) Eos # (Auto) Baso # (Auto) Immature Gran # (Auto) PT INR APTT PTT Ratio Sample Site POC pH POC pCO2 POC pO2 POC HCO3 POC Total CO2 POC Base Excess ABG pH (Temp Correct) ABG pCO2 (Temp Corrct POC ABG pO2 at Pt Temp POC ABG O2 Sat Kishan Test O2 Delivery Device POC O2 Rate Minute Ventilation Tidal Volume PEEP POC Sodium Sodium POC Potassium Potassium Chloride Carbon Dioxide Anion Gap BUN Creatinine Est Cr Clr Drug Dosing Est GFR ( Amer) Est GFR (Non-Af Amer) BUN/Creatinine Ratio Glucose POC Glucose 127 H Calcium Phosphorus Magnesium Total Bilirubin Direct Bilirubin AST ALT Alkaline Phosphatase Total Protein Albumin Medications Administered Current Inpatient Medications Acetaminophen (Acetaminophen 325 Mg Tab) 650 mg PO Q4H PRN PRN Reason: Pain or Fever Stop: 11/14/20 20:32 Last Admin: 10/25/20 10:05 Dose: 650 mg Documented by: Al Hydrox/Mg Hydrox/Simethicone (Aluminum/Magnesium Susp 30 Ml Udc) 15 ml PO Q4H PRN PRN Reason: Dyspepsia Stop: 11/14/20 20:32 Aspirin (Aspirin 81 Mg Chew) 81 mg PO HS HARISH Stop: 11/27/20 20:59 Last Admin: 10/29/20 20:36 Dose: 81 mg Documented by: Dextrose (Dextrose 50% 50 Ml Syringe) 25 - 50 ml IV UD PRN; Protocol PRN Reason: Hypoglycemia Protocol Stop: 11/14/20 20:32 Enoxaparin Sodium (Enoxaparin 100 Mg/1ml Syr) 100 mg SQ Q12H HARISH Stop: 11/22/20 13:14 Last Admin: 10/30/20 12:14 Dose: 100 mg Documented by: Enteral Nutritional Formula (Novasource Renal 2.0 Juan Daniel 1000ml Bag) 1,000 ml OG UD HARISH; Protocol Stop: 11/28/20 15:29 Last Admin: 10/29/20 17:10 Dose: 120 ml Documented by: Enteral Nutritional Formula (Novasource Renal 2.0 Juan Daniel 1000ml Bag) 720 ml GT Q24H HARISH; Protocol Stop: 11/29/20 17:59 Fentanyl Citrate (Fentanyl Bolus From Bag) 50 mcg IV Q60M PRN PRN Reason: Pain or Agitation Stop: 11/10/20 12:36 Last Admin: 10/30/20 06:48 Dose: 50 mcg Documented by: Fluticasone Propionate (Fluticasone Propionate Na Spr 16 Gm Btl) 2 sprays NA [facility] Stop: 11/17/20 20:59 Last Admin: 10/29/20 20:22 Dose: Not Given Documented by: Glucagon (Glucagon For Inj 1 Mg Vial) 1 mg SQ UD PRN; Protocol PRN Reason: Hypoglycemia Protocol Stop: 11/14/20 20:32 Glucose (Glucose 10 Tabs/Tube) 4 - 8 tabs PO UD PRN; Protocol PRN Reason: Hypoglycemia Protocol Stop: 11/14/20 20:32 Glucose (Glucose 40% Gel 15 Gm Tube) 15 - 30 gm PO UD PRN; Protocol PRN Reason: Hypoglycemia Protocol Stop: 11/14/20 20:32 Guaifenesin (Guaifenesin 600 Mg Tabcr) 1,200 mg PO Q12 HARISH Stop: 11/21/20 20:59 Last Admin: 10/30/20 08:35 Dose: 1,200 mg Documented by: Heparin Sodium (Beef Lung) (Heparin 10 Unit/Ml 5 Ml Flush) 5 ml FLUSH PRN PRN PRN Reason: Flush Stop: 11/27/20 22:57 Dextrose/Sodium Chloride (D5w And 1/2nss) 1,000 mls @ 80 mls/hr IV .[id number] [facility] Stop: 11/25/20 09:59 Last Admin: 10/30/20 10:21 Dose: 80 mls/hr Documented by: Cisatracurium Besylate 40 mg/ (Sodium Chloride) 100 mls @ 16.41 mls/hr IV .Q6H6M [facility]; Protocol Stop: 10/30/20 16:00 Last Admin: 10/30/20 12:03 Dose: 2 mcg/kg/min, 16.4 mls/hr Documented by: Midazolam HCl (Versed) 125 mg in 250 mls @ 12 mls/hr IV .[id number] [facility]; Protocol Stop: 11/26/20 12:44 Last Titration: 10/30/20 08:46 Dose: 6 mg/hr, 12 mls/hr Documented by: Fentanyl Citrate (Fentanyl Drip) 1,250 mcg in 250 mls @ 30 mls/hr IV .Q8H20M [facility]; Protocol Stop: 11/10/20 12:44 Last Admin: 10/30/20 12:44 Dose: 150 mcg/hr, 30 mls/hr Documented by: Pantoprazole Sodium 40 mg/ (Syringe) 10 mls @ 5 mls/min IV DAILY@1200 HARISH Stop: 11/28/20 11:59 Last Admin: 10/30/20 12:14 Dose: 5 mls/min Documented by: Insulin Aspart (Insulin Aspart 100 Units/Ml 3 Ml Pen) 0 units SC Q4 [facility]; Protocol Stop: 11/27/20 15:59 Last Admin: 10/30/20 12:15 Dose: 2 units Documented by: Levothyroxine Sodium (Levothyroxine Sodium 75 Mcg Tablet) 75 mcg PO DAILYBB [facility] Stop: 11/15/20 06:29 Last Admin: 10/30/20 05:32 Dose: 75 mcg Documented by: Melatonin (Melatonin 3 Mg Tab) 3 mg PO HS [facility] Stop: 11/20/20 23:04 Last Admin: 10/29/20 20:21 Dose: Not Given Documented by: Meloxicam (Meloxicam 7.5 Mg Tab) 15 mg PO DAILY PRN PRN Reason: Pain Stop: 11/14/20 20:32 Last Admin: 10/16/20 08:58 Dose: 15 mg Documented by: Metoprolol Tartrate (Metoprolol Tartrate 1 Mg/Ml Vial) 5 mg IV Q4 PRN PRN Reason: sbp> 185, dbp >95, HR >120 Stop: 11/21/20 11:26 Last Admin: 10/29/20 17:35 Dose: 5 mg Documented by: Midazolam HCl (Midazolam Bolus From Bag) 2 mg IV Q60M PRN PRN Reason: Sedation Stop: 11/26/20 12:36 Miscellaneous (Carbohydrates For Hypoglycemia ) 15 - 30 gm PO UD PRN PRN Reason: Hypoglycemia Protocol Stop: 11/14/20 20:32 Multi-Ingredient Cream (Artificial Tears Op Oint 3.5 Gm Tube) 1 appln OP Q4 HARISH Stop: 11/26/20 16:06 Last Admin: 10/30/20 12:14 Dose: 1 appln Documented by: Multivitamins/Minerals (Multi Vit W/Minerals Liquid 15 Ml Udp) 15 ml PO DAILY@1200 [facility] Stop: 11/28/20 11:59 Last Admin: 10/30/20 12:14 Dose: 15 ml Documented by: Nutritional Formula (Prosource No Carb 30 Ml/Pkt) 30 ml OG TID [facility] Stop: 11/28/20 20:59 Last Admin: 10/30/20 08:35 Dose: 30 ml Documented by: Nutritional Formula (Prosource No Carb 30 Ml/Pkt) 30 ml PO Q24H [facility] Stop: 11/29/20 17:59 Ondansetron HCl (Ondansetron 4 Mg Od Tab) 4 mg PO Q8H PRN PRN Reason: nausea Stop: 11/14/20 20:53 Last Admin: 10/17/20 22:46 Dose: 4 mg Documented by: Polyethylene Glycol (Polyethylene (Miralax) 17 Gm Pack) 17 gm PO DAILY PRN PRN Reason: Constipation Stop: 11/14/20 20:32 Rosuvastatin Calcium (Rosuvastatin Calcium 5 Mg Tab) 5 mg PO MoWeFr@0900 [facility] Stop: 11/17/20 08:59 Last Admin: 10/29/20 08:40 Dose: Not Given Documented by: Sodium Chloride (Sodium Chloride 0.65% Na Soln 45 Ml ([place])) 2 sprays ABRAHAN QID PRN PRN Reason: Congestion Stop: 11/17/20 10:45 Last Admin: 10/18/20 14:56 Dose: 2 sprays Documented by: Vitamin D (Cholecalciferol 1,000 Units 25 Mcg Tab) 2,000 units PO DAILY@1200 HARISH Stop: 11/15/20 11:59 Last Admin: 10/30/20 12:15 Dose: 2,000 units Documented by: PG Care Time/CCT Total # of Minutes Spent Total Time Spent with Patient: Total time spent is greater than 50% in coordination of care (as documented) at patient's floor/unit and/or counseling patient: Coding Level of Care Code 88405 Subseq Hosp Care Lvl 2 Diagnoses Acute respiratory failure with hypoxia J96.01 Pneumonia due to COVID-19 virus U07.1; J12.89 Atrial fibrillation I48.91 Sepsis A41.9 Sepsis acute organ dysfunction status: unspecified Sepsis type: sepsis due to unspecified organism Prediabetes R73.03 Hyperlipidemia E78.5 GERD (gastroesophageal reflux disease) K21.9 Esophageal dysmotility K22.4 Hypothyroidism E03.9 Anxiety F41.9 DVT prophylaxis Z29.9 (1) Sepsis Sepsis acute organ dysfunction status: unspecified Sepsis type: sepsis due to unspecified organism Qualified Code(s): A41.9 - Sepsis, unspecified organism
[2020-10-30] MEDS: PROSOURCE NO CARB 30 ML/PKT PO SCH (16:55)
[2020-10-30] MEDS: NOVASOURCE RENAL 2.0 CAL 1000ML BAG GT SCH (16:56)
--- NOTE | 2020-10-30 17:39 | XRay Report ---
SINGLE VIEW CHEST CLINICAL HISTORY: Respiratory failure. FINDINGS: An AP, portable, semierect chest radiograph is compared to study dated 10/27/2020. The endot burt tube, an enteric tube, and a left subclavian central venous catheter are unchanged in positio n. The heart is top normal for projection noting atherosclerotic calcification of the thoracic aorta. Multifocal airspace consolidation is similar to previous. No large pleural effusion or pneumothorax is seen. A calcified granuloma is again noted in the left upper lobe. The skeletal structures are ost eopenic. The bony thorax is grossly intact. IMPRESSION: 1. Stable lines and tubes. 2. Multifocal airspace consolidation has not significantly changed as compared to 10/27/2020. ACT 112: Negative or not required by law. Electronically signed by: Steven Chavez M.D. 10/30/2020 5:38 PM
[2020-10-30 19:25] LABS: iSTAT Art Bld Gas pCO2 Correct 59 mmHg (35-46); iSTAT Art Bld Gas pH Corrected 7.355 (7.35-7.45); iSTAT Arterial Blood Gas HCO3 33 meg/L (19-24); iSTAT Arterial Blood Gas pCO2 60 mmHg (35-46); iSTAT Arterial Blood Gas pH 7.35 (7.35-7.45); iSTAT Arterial Blood Gas pO2 76 mmHg (80-95); iSTAT Arterial Blood Gas pO2 C 73; iSTAT Carbon Dioxide 35 mmol/L (24-31); iSTAT Hematocrit 35 % (37-47); iSTAT Hemoglobin 11.9 g/dl (12.0-16.0); iSTAT Potassium 3.8 mmol/L (3.3-5.0); iSTAT Site Art Line; iSTAT Sodium 134 mmol/L (135-144)
[2020-10-30 19:38] LABS: Blood Urea Nitrogen 13 mg/dl (7-18); Calcium 8.3 mg/dl (8.5-10.1); Carbon Dioxide 32 mmol/L (21-32); Chloride 102 mmol/L (98-107); Creatinine Clr Calc Pharmacy 161.2 ml/min; Est GFR (African American) 125.1; Est GFR (Non-African American) 107.9; Glucose 145 mg/dl (70-99); Magnesium 1.7 mg/dl (1.8-2.4); Phosphorus 2.1 mg/dl (2.5-4.9); Sodium 136 mmol/L (136-145)
[2020-10-30] MEDS: MELATONIN 3 MG TAB PO SCH (19:42)
[2020-10-30] MEDS: FLUTICASONE PROPIONATE NA SPR 16 GM BTL SCH (19:42)
[2020-10-30 19:43] LABS: Troponin I < 0.015 ng/ml (0-0.045)
[2020-10-30] MEDS ORDERED: ATROPINE SULFATE 0.1 MG/ML 10ML SYR IV STA (19:53)
[2020-10-30] MEDS: ASPIRIN 81 MG CHEW PO SCH (20:00)
[2020-10-30] MEDS ORDERED: MAGNESIUM SULFATE / D5W 1 GM/100 ML BAG IV ONE (20:00)
[2020-10-30] MEDS ORDERED: CALCIUM GLUCONATE 10% 1,000 MG in SODIUM CHLORIDE 0.9% 50 ML IV ONE (20:15)
[2020-10-31] MEDS: ENOXAPARIN 100 MG/1ML SYR SQ SCH ×2 (01:20→11:56)
[2020-10-31 01:22] LABS: Basophils # (auto) 0.02 K/uL (0-0.2); Basophils % (auto) 0.2 %; Eosinophils # (auto) 0.18 K/uL (0-0.5); Eosinophils % (auto) 1.4 %; Hematocrit (blood only) 34.1 % (37-47); Hemoglobin 11.1 g/dL (12.0-16.0); Immature Granulocytes # (auto) 0.25 K/uL (0.00-0.02); Lymphocytes # (auto) 0.46 K/uL (1.2-3.4); Lymphocytes % (auto) 3.7 %; Mean Corpuscular Hemoglobin 32.1 pg (25-34); Mean Corpuscular Hgb Conc 32.6 g/dL (32-36); Mean Corpuscular Volume 98.6 fL (80-100); Mean Platelet Volume 9.6 fL (7.4-10.4); Monocytes # (auto) 0.37 K/uL (0.11-0.59); Monocytes % (auto) 2.9 %; Neutrophils # (auto) 11.28 K/uL (1.4-6.5); Neutrophils % (auto) 89.8 %; Platelet Count 184 K/uL (130-400); RDW Standard Deviation 49.4 fL (36.4-46.3); Red Blood Count 3.46 M/uL (4.2-5.4); White Blood Count 12.56 K/uL (4.8-10.8)
[2020-10-31] MEDS: MIDAZOLAM BOLUS FROM BAG IV PRN (01:24)
[2020-10-31] MEDS: MIDAZOLAM HCL 125 MG/250 ML BAG IV SCH (01:25)
[2020-10-31 02:08] LABS: Fibrinogen 486 mg/dl (184-400); INR 1.1 (0.9-1.1); Partial Thromboplastin Ratio 1.2; Partial Thromboplastin Time 32.1 Seconds (21.0-31.0); Prothrombin Time 11.7 Seconds (9.0-12.0)
[2020-10-31] MEDS: ARTIFICIAL TEARS OP OINT 3.5 GM TUBE OP SCH ×5 (03:51→19:57)
[2020-10-31] MEDS: INSULIN ASPART 100 UNITS/ML 3 ML PEN SC SCH ×5 (03:55→20:10)
[2020-10-31] MEDS: fentaNYL DRIP 1,250 MCG/250 ML BAG IV SCH ×3 (03:56→21:30)
[2020-10-31 04:28] LABS: iSTAT Art Bld Gas pCO2 Correct 62 mmHg (35-46); iSTAT Art Bld Gas pH Corrected 7.332 (7.35-7.45); iSTAT Arterial Blood Gas HCO3 33 meg/L (19-24); iSTAT Arterial Blood Gas pCO2 60 mmHg (35-46); iSTAT Arterial Blood Gas pH 7.35 (7.35-7.45); iSTAT Arterial Blood Gas pO2 63 mmHg (80-95); iSTAT Arterial Blood Gas pO2 C 67; iSTAT Carbon Dioxide 34 mmol/L (24-31); iSTAT Hematocrit 37 % (37-47); iSTAT Hemoglobin 12.6 g/dl (12.0-16.0); iSTAT Potassium 3.8 mmol/L (3.3-5.0); iSTAT Site Art Line; iSTAT Sodium 134 mmol/L (135-144)
[2020-10-31] MEDS: POLYETHYLENE (MIRALAX) 17 GM PACK PO PRN ×2 (04:49→22:12)
[2020-10-31] MEDS ORDERED: ACETAMINOPHEN 1,000 MG/100 ML VIAL IV STA ×2 (05:00→21:47)
[2020-10-31] MEDS: LEVOTHYROXINE SODIUM 75 MCG TABLET PO SCH (05:13)
[2020-10-31] MEDS: PROSOURCE NO CARB 30 ML/PKT OG SCH ×3 (07:23→19:59)
[2020-10-31] MEDS: guaiFENesin 600 MG TABCR PO SCH ×2 (07:23→19:59)
[2020-10-31 08:36] LABS: Albumin Level 1.6 gm/dl (3.4-5.0); BUN Creatinine Ratio 38.4 (10-20); Bilirubin Direct 0.2 mg/dl (0-0.2); Bilirubin,Total 0.4 mg/dl (0.2-1); Calcium 8.7 mg/dl (8.5-10.1); Creatinine Clr Calc Pharmacy 120.9 ml/min; Est GFR (African American) 113.8; Est GFR (Non-African American) 98.2; Magnesium 1.9 mg/dl (1.8-2.4); Phosphorus 1.6 mg/dl (2.5-4.9); Potassium 3.9 mmol/L (3.5-5.1); Total Protein 5.2 gm/dl (6.4-8.2)
--- NOTE | 2020-10-31 09:22 | XRay Report ---
XR chest 1V portable HISTORY: Pneumonia. Follow-up. intubation COMPARISON: Chest 10/30/2020. FINDINGS: Satisfactory support line placement. The endotracheal tube terminates 4.6 cm from the gerry a. No pneumothorax. Hazy bibasilar airspace opacities persist. The heart is normal in size. No pleura l effusions. IMPRESSION: 1. Satisfactory support line placement. 2. No change in the hazy bilateral airspace opacities consistent with a pneumonia. ACT 112: Negative or not required by law. Electronically signed by: Can Mayers M.D. 10/31/2020 9:21 AM
[2020-10-31] MEDS: MULTI VIT W/MINERALS LIQUID 15 ML UDP PO SCH (11:54)
[2020-10-31] MEDS: CHOLECALCIFEROL 1,000 UNITS 25 MCG TAB PO SCH (11:55)
[2020-10-31] MEDS: PANTOprazole 40 MG in SYRINGE 0 ML IV SCH (12:20)
--- NOTE | 2020-10-31 14:07 | Critical Care Progress Note ---
Date of Service October 31, 2020 Assessment & Plan (1) Cardiac arrest following intubation: Reason Critically Ill: Severe hypoxemia secondary to COVID-19 PLAN: Neuro: Encephalopathy acute - At risk for anoxic injury given cardiac arrest however this was approximately 2 minutes -At risk given continued hypoxia despite aggressive ventilator settings Sedation and analgesia -Goal RASS -4 negative for while in prone position Resp: Mechanical ventilation day 5 COVID-19 pneumonia Acute respiratory distress syndrome Severe hypoxemic respiratory failure PF ratio less than 200 -High PEEP low FiO2 -No significant change in compliance between prone and supine positions Pronation therapy -Cis atracurium infusion x72 hours 10/27/-10/30 completed after return to supine CV: SVT: Resolved ID: Monitor fever curve GI/Nutrition: N.p.o. while prone - Nova source 180 mL/h x 4 hours when supine -1 Prosource Heme: Leukocytosis likely secondary to steroid use DVT prophylaxis: Lovenox 100 mg every 12 Endocrine: ICU hyperglycemia protocol Day 14 of Decadron stop after today Vascular access: Left subclavian placed 10/27 arterial line placed 10/27 Code Status: Full Disposition: ICU (2) Atrial fibrillation: (3) Fever: (4) Anxiety: (5) Hypoxia: (6) 2019 novel coronavirus–infected pneumonia (NCIP)#8211;infected pneumonia (NCIP): (7) Prediabetes: Admission and Anticipated Discharge Date Admission Date: October 15, 2020 Supervising Physician Co-Signing Physician Notes I have personally spent 35 minutes of critical care time in the direct management of this patient. This is a life/limb threatening event. This includes time spent evaluating patient, direct bedside care, chart review, placing orders, interpretation of diagnostic studies, discussion with consultants, patient, and/or family members regarding treatment decisions, as well as other required patient management activities. This time is exclusive of all separately billable procedures, and teaching time and separate from and in addition to any other critical care service time. Subjective No overnight events Review of Systems Review of Systems: Unobtainable due to endotracheal tube Physical Exam Physical Exam: General: RASS -4 Skin: Warm, dry, Head: Atraumatic Ears, nose, mouth and throat: Obscured by endotracheal tube Cardiovascular: Normal peripheral perfusion Respiratory: Ventilator settings reviewed, PEEP 16 FiO2 50% Gastrointestinal: Non distended Musculoskeletal: No deformity Results & Data Results & Data ([facility]) Vital Signs (Past 12 Hours) Vital Signs Temp Pulse Resp BP Pulse Ox 10/31/20 11:51 89 112/49 L 10/31/20 11:45 84 22 91 10/31/20 07:55 98 H 22 90 10/31/20 07:45 90 95/39 L 10/31/20 06:00 93 H 114/54 L 90 10/31/20 05:30 99 H 107/53 L 91 10/31/20 05:00 86 134/70 94 10/31/20 04:30 86 151/94 H 10/31/20 04:05 83 22 91 10/31/20 04:01 37.9 C H 82 172/85 H 90 10/31/20 04:00 76 186/52 H 10/31/20 03:30 68 92 10/31/20 02:31 66 186/83 H 87 L 10/31/20 02:30 91 H 89 L Laboratory Results 10/31/20 10/31/20 10/31/20 Range/Units 11:55 07:21 06:44 WBC (4.8-10.8) K/uL RBC (4.2-5.4) M/uL Hgb (12.0-16.0) g/dL POC Hgb (12.0-16.0) g/dl Hct (37-47) % POC Hct (37-47) % MCV (80-100) fL MCH (25-34) pg MCHC (32-36) g/dL RDW Std Deviation (36.4-46.3) fL RDW Coeff of Mary (11.5-14.5) % Plt Count (130-400) K/uL MPV (7.4-10.4) fL Immature Gran % (Auto) % Neut % (Auto) % Lymph % (Auto) % [place] % (Auto) % Eos % (Auto) % Baso % (Auto) % Neut # (Auto) (1.4-6.5) K/uL Lymph # (Auto) (1.2-3.4) K/uL [place] # (Auto) (0.11-0.59) K/uL Eos # (Auto) (0-0.5) K/uL Baso # (Auto) (0-0.2) K/uL Immature Gran # (Auto) (0.00-0.02) K/uL PT (9.0-12.0) Seconds INR (0.9-1.1) APTT (21.0-31.0) Seconds PTT Ratio Fibrinogen (184-400) mg/dl Sample Site POC pH (7.35-7.45) POC pCO2 (35-46) mmHg POC pO2 (80-95) mmHg POC HCO3 (19-24) beau/L POC Total CO2 (24-31) mmol/L POC Base Excess (-9-1.8) beau/L ABG pH (Temp Correct) (7.35-7.45) ABG pCO2 (Temp Corrct (35-46) mmHg POC ABG pO2 at Pt Temp POC ABG O2 Sat (90-95) % Kishan Test O2 Delivery Device POC O2 Rate Minute Ventilation Tidal Volume PEEP POC Sodium (135-144) mmol/L Sodium 135 L (136-145) mmol/L POC Potassium (3.3-5.0) mmol/L Potassium 3.9 (3.5-5.1) mmol/L Chloride 99 (98-107) mmol/L Carbon Dioxide 31 (21-32) mmol/L Anion Gap 5.0 (3-11) BUN 20 H D (7-18) mg/dl Creatinine 0.52 L (0.6-1.2) mg/dl Est Cr Clr Drug Dosing 120.9 ml/min Est GFR ( Amer) 113.8 Est GFR (Non-Af Amer) 98.2 BUN/Creatinine Ratio 38.4 H (10-20) Glucose 178 H (70-99) mg/dl POC Glucose 119 H 168 H (70-99) mg/dl Calcium 8.7 (8.5-10.1) mg/dl Phosphorus 1.6 L (2.5-4.9) mg/dl Magnesium 1.9 (1.8-2.4) mg/dl Total Bilirubin 0.4 (0.2-1) mg/dl Direct Bilirubin 0.2 D (0-0.2) mg/dl AST 35 (15-37) U/L ALT 64 (12-78) U/L Alkaline Phosphatase 125 H (45-117) U/L Troponin I (0-0.045) ng/ml Total Protein 5.2 L (6.4-8.2) gm/dl Albumin 1.6 L (3.4-5.0) gm/dl 10/31/20 10/31/20 10/31/20 Range/Units 06:44 04:14 03:54 WBC (4.8-10.8) K/uL RBC (4.2-5.4) M/uL Hgb (12.0-16.0) g/dL POC Hgb 12.6 (12.0-16.0) g/dl Hct (37-47) % POC Hct 37 (37-47) % MCV (80-100) fL MCH (25-34) pg MCHC (32-36) g/dL RDW Std Deviation (36.4-46.3) fL RDW Coeff of Mary (11.5-14.5) % Plt Count (130-400) K/uL MPV (7.4-10.4) fL Immature Gran % (Auto) % Neut % (Auto) % Lymph % (Auto) % [place] % (Auto) % Eos % (Auto) % Baso % (Auto) % Neut # (Auto) (1.4-6.5) K/uL Lymph # (Auto) (1.2-3.4) K/uL [place] # (Auto) (0.11-0.59) K/uL Eos # (Auto) (0-0.5) K/uL Baso # (Auto) (0-0.2) K/uL Immature Gran # (Auto) (0.00-0.02) K/uL PT (9.0-12.0) Seconds INR (0.9-1.1) APTT (21.0-31.0) Seconds PTT Ratio Fibrinogen (184-400) mg/dl Sample Site Art Line POC pH 7.35 (7.35-7.45) POC pCO2 60 H (35-46) mmHg POC pO2 63 L (80-95) mmHg POC HCO3 33 H (19-24) beau/L POC Total CO2 34 H (24-31) mmol/L POC Base Excess 7.0 H (-9-1.8) beau/L ABG pH (Temp Correct) 7.332 L (7.35-7.45) ABG pCO2 (Temp Corrct 62 H (35-46) mmHg POC ABG pO2 at Pt Temp 67 POC ABG O2 Sat 90.0 (90-95) % Kishan Test NA O2 Delivery Device Ventilator POC O2 Rate 20 Minute Ventilation 8.72 Tidal Volume 360 PEEP 14 POC Sodium 134 L (135-144) mmol/L Sodium (136-145) mmol/L POC Potassium 3.8 (3.3-5.0) mmol/L Potassium (3.5-5.1) mmol/L Chloride (98-107) mmol/L Carbon Dioxide (21-32) mmol/L Anion Gap (3-11) BUN (7-18) mg/dl Creatinine (0.6-1.2) mg/dl Est Cr Clr Drug Dosing ml/min Est GFR ( Amer) Est GFR (Non-Af Amer) BUN/Creatinine Ratio (10-20) Glucose (70-99) mg/dl POC Glucose 146 H (70-99) mg/dl Calcium (8.5-10.1) mg/dl Phosphorus (2.5-4.9) mg/dl Magnesium (1.8-2.4) mg/dl Total Bilirubin (0.2-1) mg/dl Direct Bilirubin (0-0.2) mg/dl AST (15-37) U/L ALT (12-78) U/L Alkaline Phosphatase (45-117) U/L Troponin I < 0.015 (0-0.045) ng/ml Total Protein (6.4-8.2) gm/dl Albumin (3.4-5.0) gm/dl 10/31/20 10/31/20 10/31/20 Range/Units 01:33 01:09 01:09 WBC 12.56 H (4.8-10.8) K/uL RBC 3.46 L (4.2-5.4) M/uL Hgb 11.1 L (12.0-16.0) g/dL POC Hgb (12.0-16.0) g/dl Hct 34.1 L (37-47) % POC Hct (37-47) % MCV 98.6 (80-100) fL MCH 32.1 (25-34) pg MCHC 32.6 (32-36) g/dL RDW Std Deviation 49.4 H (36.4-46.3) fL RDW Coeff of Mary 14.0 (11.5-14.5) % Plt Count 184 (130-400) K/uL MPV 9.6 (7.4-10.4) fL Immature Gran % (Auto) 2.0 % Neut % (Auto) 89.8 % Lymph % (Auto) 3.7 % [place] % (Auto) 2.9 % Eos % (Auto) 1.4 % Baso % (Auto) 0.2 % Neut # (Auto) 11.28 H (1.4-6.5) K/uL Lymph # (Auto) 0.46 L (1.2-3.4) K/uL [place] # (Auto) 0.37 (0.11-0.59) K/uL Eos # (Auto) 0.18 (0-0.5) K/uL Baso # (Auto) 0.02 (0-0.2) K/uL Immature Gran # (Auto) 0.25 H (0.00-0.02) K/uL PT 11.7 (9.0-12.0) Seconds INR 1.1 (0.9-1.1) APTT 32.1 H (21.0-31.0) Seconds PTT Ratio 1.2 Fibrinogen 486 H (184-400) mg/dl Sample Site POC pH (7.35-7.45) POC pCO2 (35-46) mmHg POC pO2 (80-95) mmHg POC HCO3 (19-24) beau/L POC Total CO2 (24-31) mmol/L POC Base Excess (-9-1.8) beau/L ABG pH (Temp Correct) (7.35-7.45) ABG pCO2 (Temp Corrct (35-46) mmHg POC ABG pO2 at Pt Temp POC ABG O2 Sat (90-95) % Kishan Test O2 Delivery Device POC O2 Rate Minute Ventilation Tidal Volume PEEP POC Sodium (135-144) mmol/L Sodium (136-145) mmol/L POC Potassium (3.3-5.0) mmol/L Potassium (3.5-5.1) mmol/L Chloride (98-107) mmol/L Carbon Dioxide (21-32) mmol/L Anion Gap (3-11) BUN (7-18) mg/dl Creatinine (0.6-1.2) mg/dl Est Cr Clr Drug Dosing ml/min Est GFR ( Amer) Est GFR (Non-Af Amer) BUN/Creatinine Ratio (10-20) Glucose (70-99) mg/dl POC Glucose 119 H (70-99) mg/dl Calcium (8.5-10.1) mg/dl Phosphorus (2.5-4.9) mg/dl Magnesium (1.8-2.4) mg/dl Total Bilirubin (0.2-1) mg/dl Direct Bilirubin (0-0.2) mg/dl AST (15-37) U/L ALT (12-78) U/L Alkaline Phosphatase (45-117) U/L Troponin I (0-0.045) ng/ml Total Protein (6.4-8.2) gm/dl Albumin (3.4-5.0) gm/dl 10/31/20 10/30/20 10/30/20 Range/Units 01:09 23:50 21:18 WBC (4.8-10.8) K/uL RBC (4.2-5.4) M/uL Hgb (12.0-16.0) g/dL POC Hgb (12.0-16.0) g/dl Hct (37-47) % POC Hct (37-47) % MCV (80-100) fL MCH (25-34) pg MCHC (32-36) g/dL RDW Std Deviation (36.4-46.3) fL RDW Coeff of Mary (11.5-14.5) % Plt Count (130-400) K/uL MPV (7.4-10.4) fL Immature Gran % (Auto) % Neut % (Auto) % Lymph % (Auto) % [place] % (Auto) % Eos % (Auto) % Baso % (Auto) % Neut # (Auto) (1.4-6.5) K/uL Lymph # (Auto) (1.2-3.4) K/uL [place] # (Auto) (0.11-0.59) K/uL Eos # (Auto) (0-0.5) K/uL Baso # (Auto) (0-0.2) K/uL Immature Gran # (Auto) (0.00-0.02) K/uL PT (9.0-12.0) Seconds INR (0.9-1.1) APTT (21.0-31.0) Seconds PTT Ratio Fibrinogen (184-400) mg/dl Sample Site POC pH (7.35-7.45) POC pCO2 (35-46) mmHg POC pO2 (80-95) mmHg POC HCO3 (19-24) beau/L POC Total CO2 (24-31) mmol/L POC Base Excess (-9-1.8) beau/L ABG pH (Temp Correct) (7.35-7.45) ABG pCO2 (Temp Corrct (35-46) mmHg POC ABG pO2 at Pt Temp POC ABG O2 Sat (90-95) % Kishan Test O2 Delivery Device POC O2 Rate Minute Ventilation Tidal Volume PEEP POC Sodium (135-144) mmol/L Sodium (136-145) mmol/L POC Potassium (3.3-5.0) mmol/L Potassium (3.5-5.1) mmol/L Chloride (98-107) mmol/L Carbon Dioxide (21-32) mmol/L Anion Gap (3-11) BUN (7-18) mg/dl Creatinine (0.6-1.2) mg/dl Est Cr Clr Drug Dosing ml/min Est GFR ( Amer) Est GFR (Non-Af Amer) BUN/Creatinine Ratio (10-20) Glucose (70-99) mg/dl POC Glucose 116 H 101 H (70-99) mg/dl Calcium (8.5-10.1) mg/dl Phosphorus (2.5-4.9) mg/dl Magnesium (1.8-2.4) mg/dl Total Bilirubin (0.2-1) mg/dl Direct Bilirubin (0-0.2) mg/dl AST (15-37) U/L ALT (12-78) U/L Alkaline Phosphatase (45-117) U/L Troponin I < 0.015 (0-0.045) ng/ml Total Protein (6.4-8.2) gm/dl Albumin (3.4-5.0) gm/dl 10/30/20 10/30/20 10/30/20 Range/Units 19:53 19:10 19:07 WBC (4.8-10.8) K/uL RBC (4.2-5.4) M/uL Hgb (12.0-16.0) g/dL POC Hgb 11.9 L (12.0-16.0) g/dl Hct (37-47) % POC Hct 35 L (37-47) % MCV (80-100) fL MCH (25-34) pg MCHC (32-36) g/dL RDW Std Deviation (36.4-46.3) fL RDW Coeff of Mary (11.5-14.5) % Plt Count (130-400) K/uL MPV (7.4-10.4) fL Immature Gran % (Auto) % Neut % (Auto) % Lymph % (Auto) % [place] % (Auto) % Eos % (Auto) % Baso % (Auto) % Neut # (Auto) (1.4-6.5) K/uL Lymph # (Auto) (1.2-3.4) K/uL [place] # (Auto) (0.11-0.59) K/uL Eos # (Auto) (0-0.5) K/uL Baso # (Auto) (0-0.2) K/uL Immature Gran # (Auto) (0.00-0.02) K/uL PT (9.0-12.0) Seconds INR (0.9-1.1) APTT (21.0-31.0) Seconds PTT Ratio Fibrinogen (184-400) mg/dl Sample Site Art Line POC pH 7.35 (7.35-7.45) POC pCO2 60 H (35-46) mmHg POC pO2 76 L (80-95) mmHg POC HCO3 33 H (19-24) beau/L POC Total CO2 35 H (24-31) mmol/L POC Base Excess 8.0 H (-9-1.8) beau/L ABG pH (Temp Correct) 7.355 (7.35-7.45) ABG pCO2 (Temp Corrct 59 H (35-46) mmHg POC ABG pO2 at Pt Temp 73 POC ABG O2 Sat 94.0 (90-95) % Kishan Test NA O2 Delivery Device Ventilator POC O2 Rate 20 Minute Ventilation Tidal Volume 360 PEEP 14 POC Sodium 134 L (135-144) mmol/L Sodium 136 (136-145) mmol/L POC Potassium 3.8 (3.3-5.0) mmol/L Potassium 4.0 (3.5-5.1) mmol/L Chloride 102 (98-107) mmol/L Carbon Dioxide 32 (21-32) mmol/L Anion Gap 3.0 (3-11) BUN 13 (7-18) mg/dl Creatinine 0.39 L (0.6-1.2) mg/dl Est Cr Clr Drug Dosing 161.2 ml/min Est GFR ( Amer) 125.1 Est GFR (Non-Af Amer) 107.9 BUN/Creatinine Ratio 32.0 H (10-20) Glucose 145 H (70-99) mg/dl POC Glucose 99 (70-99) mg/dl Calcium 8.3 L (8.5-10.1) mg/dl Phosphorus 2.1 L (2.5-4.9) mg/dl Magnesium 1.7 L (1.8-2.4) mg/dl Total Bilirubin (0.2-1) mg/dl Direct Bilirubin (0-0.2) mg/dl AST (15-37) U/L ALT (12-78) U/L Alkaline Phosphatase (45-117) U/L Troponin I < 0.015 (0-0.045) ng/ml Total Protein (6.4-8.2) gm/dl Albumin (3.4-5.0) gm/dl 10/30/20 Range/Units 16:21 WBC (4.8-10.8) K/uL RBC (4.2-5.4) M/uL Hgb (12.0-16.0) g/dL POC Hgb (12.0-16.0) g/dl Hct (37-47) % POC Hct (37-47) % MCV (80-100) fL MCH (25-34) pg MCHC (32-36) g/dL RDW Std Deviation (36.4-46.3) fL RDW Coeff of Mary (11.5-14.5) % Plt Count (130-400) K/uL MPV (7.4-10.4) fL Immature Gran % (Auto) % Neut % (Auto) % Lymph % (Auto) % [place] % (Auto) % Eos % (Auto) % Baso % (Auto) % Neut # (Auto) (1.4-6.5) K/uL Lymph # (Auto) (1.2-3.4) K/uL [place] # (Auto) (0.11-0.59) K/uL Eos # (Auto) (0-0.5) K/uL Baso # (Auto) (0-0.2) K/uL Immature Gran # (Auto) (0.00-0.02) K/uL PT (9.0-12.0) Seconds INR (0.9-1.1) APTT (21.0-31.0) Seconds PTT Ratio Fibrinogen (184-400) mg/dl Sample Site POC pH (7.35-7.45) POC pCO2 (35-46) mmHg POC pO2 (80-95) mmHg POC HCO3 (19-24) beau/L POC Total CO2 (24-31) mmol/L POC Base Excess (-9-1.8) beau/L ABG pH (Temp Correct) (7.35-7.45) ABG pCO2 (Temp Corrct (35-46) mmHg POC ABG pO2 at Pt Temp POC ABG O2 Sat (90-95) % Kishan Test O2 Delivery Device POC O2 Rate Minute Ventilation Tidal Volume PEEP POC Sodium (135-144) mmol/L Sodium (136-145) mmol/L POC Potassium (3.3-5.0) mmol/L Potassium (3.5-5.1) mmol/L Chloride (98-107) mmol/L Carbon Dioxide (21-32) mmol/L Anion Gap (3-11) BUN (7-18) mg/dl Creatinine (0.6-1.2) mg/dl Est Cr Clr Drug Dosing ml/min Est GFR ( Amer) Est GFR (Non-Af Amer) BUN/Creatinine Ratio (10-20) Glucose (70-99) mg/dl POC Glucose 111 H (70-99) mg/dl Calcium (8.5-10.1) mg/dl Phosphorus (2.5-4.9) mg/dl Magnesium (1.8-2.4) mg/dl Total Bilirubin (0.2-1) mg/dl Direct Bilirubin (0-0.2) mg/dl AST (15-37) U/L ALT (12-78) U/L Alkaline Phosphatase (45-117) U/L Troponin I (0-0.045) ng/ml Total Protein (6.4-8.2) gm/dl Albumin (3.4-5.0) gm/dl Coding Level of Care Code Critical Care 1st 30-74 mins Diagnoses Cardiac arrest following intubation I97.89; I46.9 Atrial fibrillation I48.91 Fever R50.9 Anxiety F41.9 Hypoxia R09.02 2019 novel coronavirus–infected pneumonia (NCIP)#8211;infected pneumonia (NCIP) U07.1; J12.89 Prediabetes R73.03
--- NOTE | 2020-10-31 14:45 | Hospitalist Progress Note ---
Date of Service October 31, 2020 Assessment & Plan (1) Acute respiratory failure with hypoxia: intubated on 10/27, turned prone ARDSnet settings with high PEEP and low FiO2 no real improvement in lung compliance when switching from supine to prone today is day 5 of mechanical ventilation management per Dr. Richards patient required HFNC and BIPAP since admission on 10/15 from 10/25 to 10/27 she could not come off BIPAP she and her family agreed to [facility] she would like her niece Dipak to make decisions for her while on the ventilator (2) Pneumonia due to COVID-19 virus: stop Decadron 10/29, it has been 14 days completed course of Remdesivir, LD 10/19 convalescent plasma on 10/16 prognosis remains poor but ventilation is her only option to pull through, day 5 of mechanical ventilation (3) Atrial fibrillation: Patient developed atrial fibrillation in the face of her hypoxic respiratory distress on 10/22 cardiology recommended amiodarone therapy without bolus and 1 dose of digoxin 0.5. Patient reportedly broke and became slightly bradycardic at times in a junctional rhythm continue full anticoagulation for now, Lovenox 100 q12 not currently on any rate or rhythm control medications continue to monitor on tele had SVT after brief code blue after intubation, no further episodes (4) Sepsis: Source - COVID-19 +/- possible bacterial PNA completed course of Levaquin sepsis resolved (5) Prediabetes: HbA1C 5.9 in May. Glucose 129 on admission. BSG ACHS and will initially use correction factor only, Novolog in case dexamethasone increases her glucose levels so far BSG have been acceptable (6) Hyperlipidemia: Continue her usual rosuvastatin dosing. (7) GERD (gastroesophageal reflux disease): Continue her usual pantoprazole 40mg PO daily (8) Esophageal dysmotility: Aspiration precautions. (9) Hypothyroidism: TSH 1.31 in Aug. Continue levothyroxine 75 mcg PO daily (10) Anxiety: now on sedation (11) DVT prophylaxis: Lovenox therapeutic Lovenox currently Admission and Anticipated Discharge Date Admission Date: October 15, 2020 Subjective patient not doing well, no improvement in lung compliance when switching from supine to prone AF ratio is < 200 Review of Systems Review of Systems: Unobtainable due to endotracheal tube and Unobtainable due to reduced consciousness Physical Exam Constitutional: well developed, well nourished and + mechanically ventilated (supine) Neck: trachea midline, no thyromegaly Respiratory: symmetric chest movement (ventilated) Auscultation: lungs clear to auscultation bilaterally Cardiovascular: RRR, no murmur, no edema Gastrointestinal (Abdomen): normal bowel sounds, soft, nontender, no hepatosplenomegaly Skin: no rashes, warm and dry Neurologic: + obtunded; no focal motor deficits Psychiatric: Orientation: + not alert Results & Data Results & Data ([facility]) Vital Signs (Past 12 Hours) Vital Signs Temp Pulse Resp BP Pulse Ox 10/31/20 11:51 89 112/49 L 10/31/20 11:45 84 22 91 10/31/20 07:55 98 H 22 90 10/31/20 07:45 90 95/39 L 10/31/20 06:00 93 H 114/54 L 90 10/31/20 05:30 99 H 107/53 L 91 10/31/20 05:00 86 134/70 94 10/31/20 04:30 86 151/94 H 10/31/20 04:05 83 22 91 10/31/20 04:01 37.9 C H 82 172/85 H 90 10/31/20 04:00 76 186/52 H 10/31/20 03:30 68 92 Laboratory Results Laboratory Results - last 24 hr 10/30/20 10/30/20 10/30/20 16:21 19:07 19:10 WBC RBC Hgb POC Hgb 11.9 L Hct POC Hct 35 L MCV MCH MCHC RDW Std Deviation RDW Coeff of Mary Plt Count MPV Immature Gran % (Auto) Neut % (Auto) Lymph % (Auto) [place] % (Auto) Eos % (Auto) Baso % (Auto) Neut # (Auto) Lymph # (Auto) [place] # (Auto) Eos # (Auto) Baso # (Auto) Immature Gran # (Auto) PT INR APTT PTT Ratio Fibrinogen Sample Site Art Line POC pH 7.35 POC pCO2 60 H POC pO2 76 L POC HCO3 33 H POC Total CO2 35 H POC Base Excess 8.0 H ABG pH (Temp Correct) 7.355 ABG pCO2 (Temp Corrct 59 H POC ABG pO2 at Pt Temp 73 POC ABG O2 Sat 94.0 Kishan Test NA O2 Delivery Device Ventilator POC O2 Rate 20 Minute Ventilation Tidal Volume 360 PEEP 14 POC Sodium 134 L Sodium 136 POC Potassium 3.8 Potassium 4.0 Chloride 102 Carbon Dioxide 32 Anion Gap 3.0 BUN 13 Creatinine 0.39 L Est Cr Clr Drug Dosing 161.2 Est GFR ( Amer) 125.1 Est GFR (Non-Af Amer) 107.9 BUN/Creatinine Ratio 32.0 H Glucose 145 H POC Glucose 111 H Calcium 8.3 L Phosphorus 2.1 L Magnesium 1.7 L Total Bilirubin Direct Bilirubin AST ALT Alkaline Phosphatase Troponin I < 0.015 Total Protein Albumin 10/30/20 10/30/20 10/30/20 19:53 21:18 23:50 WBC RBC Hgb POC Hgb Hct POC Hct MCV MCH MCHC RDW Std Deviation RDW Coeff of Mary Plt Count MPV Immature Gran % (Auto) Neut % (Auto) Lymph % (Auto) [place] % (Auto) Eos % (Auto) Baso % (Auto) Neut # (Auto) Lymph # (Auto) [place] # (Auto) Eos # (Auto) Baso # (Auto) Immature Gran # (Auto) PT INR APTT PTT Ratio Fibrinogen Sample Site POC pH POC pCO2 POC pO2 POC HCO3 POC Total CO2 POC Base Excess ABG pH (Temp Correct) ABG pCO2 (Temp Corrct POC ABG pO2 at Pt Temp POC ABG O2 Sat Kishan Test O2 Delivery Device POC O2 Rate Minute Ventilation Tidal Volume PEEP POC Sodium Sodium POC Potassium Potassium Chloride Carbon Dioxide Anion Gap BUN Creatinine Est Cr Clr Drug Dosing Est GFR ( Amer) Est GFR (Non-Af Amer) BUN/Creatinine Ratio Glucose POC Glucose 99 101 H 116 H Calcium Phosphorus Magnesium Total Bilirubin Direct Bilirubin AST ALT Alkaline Phosphatase Troponin I Total Protein Albumin 10/31/20 10/31/20 10/31/20 01:09 01:09 01:09 WBC 12.56 H RBC 3.46 L Hgb 11.1 L POC Hgb Hct 34.1 L POC Hct MCV 98.6 MCH 32.1 MCHC 32.6 RDW Std Deviation 49.4 H RDW Coeff of Mary 14.0 Plt Count 184 MPV 9.6 Immature Gran % (Auto) 2.0 Neut % (Auto) 89.8 Lymph % (Auto) 3.7 [place] % (Auto) 2.9 Eos % (Auto) 1.4 Baso % (Auto) 0.2 Neut # (Auto) 11.28 H Lymph # (Auto) 0.46 L [place] # (Auto) 0.37 Eos # (Auto) 0.18 Baso # (Auto) 0.02 Immature Gran # (Auto) 0.25 H PT 11.7 INR 1.1 APTT 32.1 H PTT Ratio 1.2 Fibrinogen 486 H Sample Site POC pH POC pCO2 POC pO2 POC HCO3 POC Total CO2 POC Base Excess ABG pH (Temp Correct) ABG pCO2 (Temp Corrct POC ABG pO2 at Pt Temp POC ABG O2 Sat Kishan Test O2 Delivery Device POC O2 Rate Minute Ventilation Tidal Volume PEEP POC Sodium Sodium POC Potassium Potassium Chloride Carbon Dioxide Anion Gap BUN Creatinine Est Cr Clr Drug Dosing Est GFR ( Amer) Est GFR (Non-Af Amer) BUN/Creatinine Ratio Glucose POC Glucose Calcium Phosphorus Magnesium Total Bilirubin Direct Bilirubin AST ALT Alkaline Phosphatase Troponin I < 0.015 Total Protein Albumin 10/31/20 10/31/20 10/31/20 01:33 03:54 04:14 WBC RBC Hgb POC Hgb 12.6 Hct POC Hct 37 MCV MCH MCHC RDW Std Deviation RDW Coeff of Mary Plt Count MPV Immature Gran % (Auto) Neut % (Auto) Lymph % (Auto) [place] % (Auto) Eos % (Auto) Baso % (Auto) Neut # (Auto) Lymph # (Auto) [place] # (Auto) Eos # (Auto) Baso # (Auto) Immature Gran # (Auto) PT INR APTT PTT Ratio Fibrinogen Sample Site Art Line POC pH 7.35 POC pCO2 60 H POC pO2 63 L POC HCO3 33 H POC Total CO2 34 H POC Base Excess 7.0 H ABG pH (Temp Correct) 7.332 L ABG pCO2 (Temp Corrct 62 H POC ABG pO2 at Pt Temp 67 POC ABG O2 Sat 90.0 Kishan Test NA O2 Delivery Device Ventilator POC O2 Rate 20 Minute Ventilation 8.72 Tidal Volume 360 PEEP 14 POC Sodium 134 L Sodium POC Potassium 3.8 Potassium Chloride Carbon Dioxide Anion Gap BUN Creatinine Est Cr Clr Drug Dosing Est GFR ( Amer) Est GFR (Non-Af Amer) BUN/Creatinine Ratio Glucose POC Glucose 119 H 146 H Calcium Phosphorus Magnesium Total Bilirubin Direct Bilirubin AST ALT Alkaline Phosphatase Troponin I Total Protein Albumin 10/31/20 10/31/20 10/31/20 06:44 06:44 07:21 WBC RBC Hgb POC Hgb Hct POC Hct MCV MCH MCHC RDW Std Deviation RDW Coeff of Mary Plt Count MPV Immature Gran % (Auto) Neut % (Auto) Lymph % (Auto) [place] % (Auto) Eos % (Auto) Baso % (Auto) Neut # (Auto) Lymph # (Auto) [place] # (Auto) Eos # (Auto) Baso # (Auto) Immature Gran # (Auto) PT INR APTT PTT Ratio Fibrinogen Sample Site POC pH POC pCO2 POC pO2 POC HCO3 POC Total CO2 POC Base Excess ABG pH (Temp Correct) ABG pCO2 (Temp Corrct POC ABG pO2 at Pt Temp POC ABG O2 Sat Kishan Test O2 Delivery Device POC O2 Rate Minute Ventilation Tidal Volume PEEP POC Sodium Sodium 135 L POC Potassium Potassium 3.9 Chloride 99 Carbon Dioxide 31 Anion Gap 5.0 BUN 20 H D Creatinine 0.52 L Est Cr Clr Drug Dosing 120.9 Est GFR ( Amer) 113.8 Est GFR (Non-Af Amer) 98.2 BUN/Creatinine Ratio 38.4 H Glucose 178 H POC Glucose 168 H Calcium 8.7 Phosphorus 1.6 L Magnesium 1.9 Total Bilirubin 0.4 Direct Bilirubin 0.2 D AST 35 ALT 64 Alkaline Phosphatase 125 H Troponin I < 0.015 Total Protein 5.2 L Albumin 1.6 L 10/31/20 11:55 WBC RBC Hgb POC Hgb Hct POC Hct MCV MCH MCHC RDW Std Deviation RDW Coeff of Mary Plt Count MPV Immature Gran % (Auto) Neut % (Auto) Lymph % (Auto) [place] % (Auto) Eos % (Auto) Baso % (Auto) Neut # (Auto) Lymph # (Auto) [place] # (Auto) Eos # (Auto) Baso # (Auto) Immature Gran # (Auto) PT INR APTT PTT Ratio Fibrinogen Sample Site POC pH POC pCO2 POC pO2 POC HCO3 POC Total CO2 POC Base Excess ABG pH (Temp Correct) ABG pCO2 (Temp Corrct POC ABG pO2 at Pt Temp POC ABG O2 Sat Kishan Test O2 Delivery Device POC O2 Rate Minute Ventilation Tidal Volume PEEP POC Sodium Sodium POC Potassium Potassium Chloride Carbon Dioxide Anion Gap BUN Creatinine Est Cr Clr Drug Dosing Est GFR ( Amer) Est GFR (Non-Af Amer) BUN/Creatinine Ratio Glucose POC Glucose 119 H Calcium Phosphorus Magnesium Total Bilirubin Direct Bilirubin AST ALT Alkaline Phosphatase Troponin I Total Protein Albumin Medications Administered Current Inpatient Medications Acetaminophen (Acetaminophen 325 Mg Tab) 650 mg PO Q4H PRN PRN Reason: Pain or Fever Stop: 11/14/20 20:32 Last Admin: 10/25/20 10:05 Dose: 650 mg Documented by: Al Hydrox/Mg Hydrox/Simethicone (Aluminum/Magnesium Susp 30 Ml Udc) 15 ml PO Q4H PRN PRN Reason: Dyspepsia Stop: 11/14/20 20:32 Aspirin (Aspirin 81 Mg Chew) 81 mg PO HS HARISH Stop: 11/27/20 20:59 Last Admin: 10/30/20 20:00 Dose: 81 mg Documented by: Dextrose (Dextrose 50% 50 Ml Syringe) 25 - 50 ml IV UD PRN; Protocol PRN Reason: Hypoglycemia Protocol Stop: 11/14/20 20:32 Enoxaparin Sodium (Enoxaparin 100 Mg/1ml Syr) 100 mg SQ Q12H HARISH Stop: 11/22/20 13:14 Last Admin: 10/31/20 11:56 Dose: 100 mg Documented by: Enteral Nutritional Formula (Novasource Renal 2.0 Juan Daniel 1000ml Bag) 1,000 ml OG UD HARISH; Protocol Stop: 11/28/20 15:29 Last Admin: 10/29/20 17:10 Dose: 120 ml Documented by: Enteral Nutritional Formula (Novasource Renal 2.0 Juan Daniel 1000ml Bag) 720 ml GT Q24H HARISH; Protocol Stop: 11/29/20 17:59 Last Admin: 10/30/20 16:56 Dose: 720 ml Documented by: Fentanyl Citrate (Fentanyl Bolus From Bag) 50 mcg IV Q60M PRN PRN Reason: Pain or Agitation Stop: 11/10/20 12:36 Last Admin: 10/31/20 06:49 Dose: 50 mcg Documented by: Fluticasone Propionate (Fluticasone Propionate Na Spr 16 Gm Btl) 2 sprays NA HS HARISH Stop: 11/17/20 20:59 Last Admin: 10/30/20 19:42 Dose: Not Given Documented by: Glucagon (Glucagon For Inj 1 Mg Vial) 1 mg SQ UD PRN; Protocol PRN Reason: Hypoglycemia Protocol Stop: 11/14/20 20:32 Glucose (Glucose 10 Tabs/Tube) 4 - 8 tabs PO UD PRN; Protocol PRN Reason: Hypoglycemia Protocol Stop: 11/14/20 20:32 Glucose (Glucose 40% Gel 15 Gm Tube) 15 - 30 gm PO UD PRN; Protocol PRN Reason: Hypoglycemia Protocol Stop: 11/14/20 20:32 Guaifenesin (Guaifenesin 600 Mg Tabcr) 1,200 mg PO Q12 HARISH Stop: 11/21/20 20:59 Last Admin: 10/31/20 07:23 Dose: 1,200 mg Documented by: Heparin Sodium (Beef Lung) (Heparin 10 Unit/Ml 5 Ml Flush) 5 ml FLUSH PRN PRN PRN Reason: Flush Stop: 11/27/20 22:57 Midazolam HCl (Versed) 125 mg in 250 mls @ 10 mls/hr IV .Q25H [facility]; Protocol Stop: 11/26/20 12:44 Last Titration: 10/31/20 07:04 Dose: 5 mg/hr, 10 mls/hr Documented by: Fentanyl Citrate (Fentanyl Drip) 1,250 mcg in 250 mls @ 30 mls/hr IV .Q8H20M [facility]; Protocol Stop: 11/10/20 12:44 Last Admin: 10/31/20 11:57 Dose: 150 mcg/hr, 30 mls/hr Documented by: Pantoprazole Sodium 40 mg/ (Syringe) 10 mls @ 5 mls/min IV DAILY@1200 HARISH Stop: 11/28/20 11:59 Last Admin: 10/31/20 12:20 Dose: 5 mls/min Documented by: Insulin Aspart (Insulin Aspart 100 Units/Ml 3 Ml Pen) 0 units SC Q4 [facility]; Protocol Stop: 11/27/20 15:59 Last Admin: 10/31/20 11:56 Dose: 2 units Documented by: Levothyroxine Sodium (Levothyroxine Sodium 75 Mcg Tablet) 75 mcg PO DAILYBB [facility] Stop: 11/15/20 06:29 Last Admin: 10/31/20 05:13 Dose: 75 mcg Documented by: Melatonin (Melatonin 3 Mg Tab) 3 mg PO HS [facility] Stop: 11/20/20 23:04 Last Admin: 10/30/20 19:42 Dose: Not Given Documented by: Meloxicam (Meloxicam 7.5 Mg Tab) 15 mg PO DAILY PRN PRN Reason: Pain Stop: 11/14/20 20:32 Last Admin: 10/16/20 08:58 Dose: 15 mg Documented by: Metoprolol Tartrate (Metoprolol Tartrate 1 Mg/Ml Vial) 5 mg IV Q4 PRN PRN Reason: sbp> 185, dbp >95, HR >120 Stop: 11/21/20 11:26 Last Admin: 10/29/20 17:35 Dose: 5 mg Documented by: Midazolam HCl (Midazolam Bolus From Bag) 2 mg IV Q60M PRN PRN Reason: Sedation Stop: 11/26/20 12:36 Last Admin: 10/31/20 01:24 Dose: 2 mg Documented by: Miscellaneous (Carbohydrates For Hypoglycemia ) 15 - 30 gm PO UD PRN PRN Reason: Hypoglycemia Protocol Stop: 11/14/20 20:32 Multi-Ingredient Cream (Artificial Tears Op Oint 3.5 Gm Tube) 1 appln OP Q4 HARISH Stop: 11/26/20 16:06 Last Admin: 10/31/20 11:54 Dose: 1 appln Documented by: Multivitamins/Minerals (Multi Vit W/Minerals Liquid 15 Ml Udp) 15 ml PO DAILY@1200 [facility] Stop: 11/28/20 11:59 Last Admin: 10/31/20 11:54 Dose: 15 ml Documented by: Nutritional Formula (Prosource No Carb 30 Ml/Pkt) 30 ml OG TID [facility] Stop: 11/28/20 20:59 Last Admin: 10/31/20 07:23 Dose: 30 ml Documented by: Nutritional Formula (Prosource No Carb 30 Ml/Pkt) 30 ml PO Q24H [facility] Stop: 11/29/20 17:59 Last Admin: 10/30/20 16:55 Dose: 30 ml Documented by: Ondansetron HCl (Ondansetron 4 Mg Od Tab) 4 mg PO Q8H PRN PRN Reason: nausea Stop: 11/14/20 20:53 Last Admin: 10/17/20 22:46 Dose: 4 mg Documented by: Polyethylene Glycol (Polyethylene (Miralax) 17 Gm Pack) 17 gm PO DAILY PRN PRN Reason: Constipation Stop: 11/14/20 20:32 Last Admin: 10/31/20 04:49 Dose: 17 gm Documented by: Rosuvastatin Calcium (Rosuvastatin Calcium 5 Mg Tab) 5 mg PO MoWeFr@0900 [facility] Stop: 11/17/20 08:59 Last Admin: 10/29/20 08:40 Dose: Not Given Documented by: Sodium Chloride (Sodium Chloride 0.65% Na Soln 45 Ml ([place])) 2 sprays ABRAHAN QID PRN PRN Reason: Congestion Stop: 11/17/20 10:45 Last Admin: 10/18/20 14:56 Dose: 2 sprays Documented by: Vitamin D (Cholecalciferol 1,000 Units 25 Mcg Tab) 2,000 units PO DAILY@1200 [facility] Stop: 11/15/20 11:59 Last Admin: 10/31/20 11:55 Dose: 2,000 units Documented by: PG Care Time/CCT Total # of Minutes Spent Total Time Spent with Patient: Total time spent is greater than 50% in coordination of care (as documented) at patient's floor/unit and/or counseling patient: Coding Level of Care Code 84104 Subseq Hosp Care Lvl 2 Diagnoses Acute respiratory failure with hypoxia J96.01 Pneumonia due to COVID-19 virus U07.1; J12.89 Atrial fibrillation I48.91 Sepsis A41.9 Sepsis acute organ dysfunction status: unspecified Sepsis type: sepsis due to unspecified organism Prediabetes R73.03 Hyperlipidemia E78.5 GERD (gastroesophageal reflux disease) K21.9 Esophageal dysmotility K22.4 Hypothyroidism E03.9 Anxiety F41.9 DVT prophylaxis Z29.9 (1) Sepsis Sepsis acute organ dysfunction status: unspecified Sepsis type: sepsis due to unspecified organism Qualified Code(s): A41.9 - Sepsis, unspecified organism
[2020-10-31] MEDS ORDERED: POT PHOSPHATE MONOBASIC W/ SOD TAB PO ONE ×2 (15:00→17:15)
[2020-10-31] MEDS: NOVASOURCE RENAL 2.0 CAL 1000ML BAG GT SCH (17:24)
[2020-10-31] MEDS: PROSOURCE NO CARB 30 ML/PKT PO SCH (18:47)
[2020-10-31] MEDS: ASPIRIN 81 MG CHEW PO SCH (19:58)
[2020-10-31] MEDS: MELATONIN 3 MG TAB PO SCH (20:00)
[2020-10-31] MEDS: FLUTICASONE PROPIONATE NA SPR 16 GM BTL SCH (20:28)
[2020-11-01] MEDS: ARTIFICIAL TEARS OP OINT 3.5 GM TUBE OP SCH ×6 (00:16→19:45)
[2020-11-01] MEDS: INSULIN ASPART 100 UNITS/ML 3 ML PEN SC SCH ×6 (00:16→19:46)
[2020-11-01] MEDS: ENOXAPARIN 100 MG/1ML SYR SQ SCH ×2 (00:17→12:15)
[2020-11-01] MEDS: MIDAZOLAM HCL 125 MG/250 ML BAG IV SCH (03:45)
[2020-11-01 04:22] LABS: iSTAT Art Bld Gas pCO2 Correct 66 mmHg (35-46); iSTAT Arterial Blood Gas HCO3 35 meg/L (19-24); iSTAT Arterial Blood Gas pCO2 66 mmHg (35-46); iSTAT Arterial Blood Gas pH 7.33 (7.35-7.45); iSTAT Arterial Blood Gas pO2 60 mmHg (80-95); iSTAT Arterial Blood Gas pO2 C 60; iSTAT Carbon Dioxide 37 mmol/L (24-31); iSTAT Hematocrit 31 % (37-47); iSTAT Hemoglobin 10.5 g/dl (12.0-16.0); iSTAT Potassium 3.7 mmol/L (3.3-5.0); iSTAT Site Art Line; iSTAT Sodium 135 mmol/L (135-144)
[2020-11-01] MEDS: fentaNYL DRIP 1,250 MCG/250 ML BAG IV SCH ×2 (05:16→19:06)
[2020-11-01] MEDS: LEVOTHYROXINE SODIUM 75 MCG TABLET PO SCH (05:17)
--- NOTE | 2020-11-01 06:34 | Electrocardiogram Report ---
Test Reason : Blood Pressure : / mmHG Vent. Rate : 054 BPM Atrial Rate : 054 BPM P-R Int : 114 ms QRS Dur : 098 ms QT Int : 450 ms P-R-T Axes : 028 051 025 degrees QTc Int : 426 ms Sinus bradycardia Otherwise normal ECG When compared with ECG of 22-OCT-2020 10:59, Sinus rhythm has replaced Atrial fibrillation Vent. rate has decreased BY 63 BPM Non-specific change in ST segment in Inferior leads T wave inversion less evident in Inferior leads Confirmed by Francisco J Thompson ([id number]) on 11/01/2020 6:34:34 AM Referred By: REFERRED SELF Confirmed By:Francisco J Thompson
[2020-11-01] MEDS: MIDAZOLAM BOLUS FROM BAG IV PRN ×2 (06:39→12:21)
--- NOTE | 2020-11-01 08:34 | XRay Report ---
XR chest 1V portable HISTORY: Coronavirus. Follow-up. COMPARISON: Chest 10/31/2020. FINDINGS: Endotracheal tube terminates 5 cm from the emeterio. Nasogastric tube terminates in the fundu s of the stomach. Left subclavian central venous catheter terminates at the SVC. This remains unchang ed. No pneumothorax. Interstitial thickening and peripheral airspace opacities are not significant ch anged consistent with a viral pneumonia. No pleural effusions. IMPRESSION: 1. Satisfactory support line placement. 2. No change in the bilateral airspace opacities consistent with a viral pneumonia. ACT 112: Negative or not required by law. Electronically signed by: Can Mayers M.D. 11/01/2020 8:33 AM
[2020-11-01] MEDS: ROSUVASTATIN CALCIUM 5 MG TAB PO SCH (08:42)
[2020-11-01] MEDS: PROSOURCE NO CARB 30 ML/PKT OG SCH (08:43)
[2020-11-01] MEDS: guaiFENesin 600 MG TABCR PO SCH (08:50)
[2020-11-01] MEDS ORDERED: ACETAMINOPHEN SUSP 500 MG/15.6 ML UDP PO STA (11:20)
[2020-11-01] MEDS: PEPTAMEN INTENSE VHP 1.0 CAL 1,000 ML BAG OG SCH (12:10)
[2020-11-01] MEDS: PANTOprazole 40 MG in SYRINGE 0 ML IV SCH (12:14)
[2020-11-01] MEDS: MULTI VIT W/MINERALS LIQUID 15 ML UDP PO SCH (12:14)
[2020-11-01] MEDS: CHOLECALCIFEROL 1,000 UNITS 25 MCG TAB PO SCH (12:15)
--- NOTE | 2020-11-01 12:55 | Hospitalist Progress Note ---
Date of Service November 01, 2020 Assessment & Plan (1) Acute respiratory failure with hypoxia: intubated on 10/27, turned prone ARDSnet settings with high PEEP and low FiO2 no real improvement in lung compliance when switching from supine to prone Patient required HFNC and BIPAP since admission on 10/15. From 10/25 to 10/27 she could not come off BIPAP. She and her family agreed to intubation and [facility] ventilation. Intubated on 10/27. -> She would like her niece Dipak to make decisions for her while on the ventilator. No change today. (2) Pneumonia due to COVID-19 virus: stop Decadron 10/29, it has been 14 days completed course of Remdesivir, LD 10/19 convalescent plasma on 10/16 Prognosis remains poor but ventilation is her only option to pull through. (3) Atrial fibrillation: Patient developed atrial fibrillation in the face of her hypoxic respiratory distress on 10/22. cardiology recommended amiodarone therapy without bolus and 1 dose of digoxin 0.5. Patient reportedly broke and became slightly bradycardic at times in a junctional rhythm continue full anticoagulation for now, Lovenox 100 q12 not currently on any rate or rhythm control medications continue to monitor on tele had SVT after brief code blue after intubation, no further episodes (4) Sepsis: Source - COVID-19 +/- possible bacterial PNA completed course of Levaquin sepsis resolved (5) Prediabetes: HbA1C 5.9 in May. Glucose 129 on admission. BSG ACHS and will initially use correction factor only, Novolog in case dexa methasone increases her glucose levels so far BSG have been acceptable - 150-180. (6) Hyperlipidemia: Continue her usual rosuvastatin dosing. (7) GERD (gastroesophageal reflux disease): Continue her usual pantoprazole 40mg PO daily (8) Esophageal dysmotility: Aspiration precautions. (9) Hypothyroidism: TSH 1.31 in Aug. Continue levothyroxine 75 mcg PO daily (10) Anxiety: now on sedation (11) DVT prophylaxis: Lovenox therapeutic Lovenox currently Admission and Anticipated Discharge Date Admission Date: October 15, 2020 Subjective Intubated. Review of Systems Review of Systems: Unobtainable due to endotracheal tube Physical Exam Constitutional: WD/WN, vitals as above + acute distress Eyes: EOM intact bilaterally; no conjunctival abnormality ENMT: external ear and nose normal, oropharynx normal Mouth / Teeth: 1. Intubated Neck: trachea midline, no thyromegaly normal visual inspection Respiratory: + respiratory distress and + tachypneic Cardiovascular: RRR, no murmur, no edema Gastrointestinal (Abdomen): Inspection/Auscultation: abdomen normal to inspection; abdomen not distended Musculoskeletal: no cyanosis or clubbing, extremities motor strength 5/5 Skin: no rashes, warm and dry Neurologic: + does not move all extremities and + not awake Psychiatric: Orientation: + not alert and + not oriented to person Results & Data Results & Data ([facility]) Vital Signs (Past 12 Hours) Vital Signs Temp Pulse Resp BP Pulse Ox 11/01/20 11:00 38.4 C H 93 H 23 177/66 H 90 11/01/20 10:00 38.2 C H 90 151/70 H 89 L 11/01/20 09:00 38.1 C H 99 H 131/74 89 L 11/01/20 08:30 38.0 C H 102 H 152/82 H 89 L 11/01/20 08:26 100 H 24 89 L 11/01/20 08:00 37.9 C H 98 H 167/69 H 88 L 11/01/20 07:30 37.6 C H 100 H 139/80 89 L 11/01/20 07:00 37.4 C 95 H 184/96 H 90 11/01/20 06:30 37.1 C 100 H 217/71 H 89 L 11/01/20 06:20 37.0 C 97 H 188/99 H 89 L 11/01/20 06:01 36.9 C 86 194/93 H 89 L 11/01/20 05:30 36.8 C 88 175/93 H 90 11/01/20 05:03 36.9 C 78 160/60 H 88 L 11/01/20 04:00 37.0 C 76 146/68 H 89 L 11/01/20 03:54 83 21 91 11/01/20 03:30 37.1 C 92 H 131/78 92 11/01/20 03:00 37.1 C 88 138/82 92 11/01/20 02:30 37.2 C 94 H 135/80 92 11/01/20 02:00 37.3 C 89 130/76 91 12/14/20 01:30 37.5 C 94 H 110/70 91 11/01/20 01:00 37.6 C H 117 H 106/70 91 PG Care Time/CCT Total # of Minutes Spent Total Time Spent with Patient: Total time spent is greater than 50% in coordination of care (as documented) at patient's floor/unit and/or counseling patient: Coding Level of Care Code 83455 Subseq Hosp Care Lvl 3 Diagnoses Acute respiratory failure with hypoxia J96.01 Pneumonia due to COVID-19 virus U07.1; J12.89 Atrial fibrillation I48.91 Sepsis A41.9 Sepsis acute organ dysfunction status: unspecified Sepsis type: sepsis due to unspecified organism Prediabetes R73.03 Hyperlipidemia E78.5 GERD (gastroesophageal reflux disease) K21.9 Esophageal dysmotility K22.4 Hypothyroidism E03.9 Anxiety F41.9 DVT prophylaxis Z29.9 (1) Sepsis Sepsis acute organ dysfunction status: unspecified Sepsis type: sepsis due to unspecified organism Qualified Code(s): A41.9 - Sepsis, unspecified organism
[2020-11-01] MEDS ORDERED: PROPOFOL BOLUS FROM BAG IV PRN (16:19)
[2020-11-01] MEDS ORDERED: STAT IV Infusion **Titration per Protocol STA (16:19)
--- NOTE | 2020-11-01 16:28 | Critical Care Progress Note ---
Date of Service November 01, 2020 Assessment & Plan (1) 2019 novel coronavirus–infected pneumonia (NCIP)#8211;infected pneumonia (NCIP): Impression: 69-year-old female with severe acute hypoxemic respiratory failure intubated due to novel coronavirus with ARDS. 24-hour events: Patient has been maintained on her current vent settings. Not made any significant progress in weaning her oxygen requirements. She continues to demonstrate intermittent periods of agitation associated with hypertension. PLAN: Neuro: Continue sedation with fentanyl and Versed. We will add propofol and Precedex to assist with sedation. No need for additional neuromuscular blockade at this point time. Resp: ARDS secondary to coronavirus infection. The patient is currently day #6 mechanical ventilation with diffuse pulmonary infiltrates. She continues to require high levels of ventilatory support with high PEEP and high FiO2. Her compliance is poor with plateau pressures in the mid to high 20 range. No needs for additional proning or neuromuscular paralytics at this point time. Depending on the patient's clinical course, may consider tracheostomy around day 10 but will need to determine who the medical proxy decision-maker is for this patient. Asked case management and palliative care to assist in this endeavor. CV: SVT: Resolved. Intermittently hypertensive. We will see how she responds to Precedex. May need to add additional antihypertensives. ID: Still febrile. Will obtain respiratory cultures to see if there is a secondary pneumonic infection going on. Hold on blood cultures for now. GI/Nutrition: Advance tube feedings to goal. Heme: Continue DVT prophylaxis with Lovenox. Endocrine: Glycemic control per protocol. Continue Synthroid Vascular access: Left subclavian placed 10/27 arterial line placed 10/27 Code Status: Full Disposition: ICU Patient remains critically ill with significant possibility of clinical decline and . A total of 45 minutes critical care time was spent in evaluation management of this patient with life-threatening illness. (2) Acute respiratory failure with hypoxia: (3) Sepsis: Admission and Anticipated Discharge Date Admission Date: October 15, 2020 Subjective Intubated and sedated Review of Systems Review of Systems: Unobtainable due to endotracheal tube Physical Exam Constitutional: WD/WN, vitals as above + acute distress Eyes: EOM intact bilaterally; no conjunctival abnormality ENMT: external ear and nose normal, oropharynx normal Neck: trachea midline, no thyromegaly normal visual inspection Respiratory: + respiratory distress and + tachypneic Cardiovascular: RRR, no murmur, no edema Gastrointestinal (Abdomen): Inspection/Auscultation: abdomen normal to inspection; abdomen not distended Musculoskeletal: no cyanosis or clubbing, extremities motor strength 5/5 Skin: no rashes, warm and dry Neurologic: + does not move all extremities and + not awake Psychiatric: Orientation: + not alert and + not oriented to person Results & Data Results & Data ([facility]) Vital Signs (Past 12 Hours) Vital Signs Temp Pulse Resp BP Pulse Ox 11/01/20 15:43 92 H 23 90 11/01/20 14:00 38.0 C H 110 H 125/65 91 11/01/20 13:00 38.2 C H 64 141/67 H 90 11/01/20 12:00 38.4 C H 102 H 169/68 H 89 L 11/01/20 11:00 38.4 C H 93 H 23 177/66 H 90 11/01/20 10:00 38.2 C H 90 151/70 H 89 L 11/01/20 09:00 38.1 C H 99 H 131/74 89 L 11/01/20 08:30 38.0 C H 102 H 152/82 H 89 L 11/01/20 08:26 100 H 24 89 L 11/01/20 08:00 37.9 C H 98 H 167/69 H 88 L 11/01/20 07:30 37.6 C H 100 H 139/80 89 L 11/01/20 07:00 37.4 C 95 H 184/96 H 90 11/01/20 06:30 37.1 C 100 H 217/71 H 89 L 11/01/20 06:20 37.0 C 97 H 188/99 H 89 L 11/01/20 06:01 36.9 C 86 194/93 H 89 L 11/01/20 05:30 36.8 C 88 175/93 H 90 11/01/20 05:03 36.9 C 78 160/60 H 88 L Laboratory Results 10/31/20 01:09 10/31/20 06:44 Diagnostic Findings Chest x-ray from today was independently reviewed. Endotracheal tube and subcl jeannette line are in good position. There are diffuse hazy interstitial opacities more prominent on the left than the right. No appreciable change from prior Coding Level of Care Code Critical Care 1st 30-74 mins Diagnoses 2019 novel coronavirus–infected pneumonia (NCIP)#8211;infected pneumonia (NCIP) U07.1; J12.89 Acute respiratory failure with hypoxia J96.01 Sepsis A41.9 Sepsis acute organ dysfunction status: unspecified Sepsis type: sepsis due to unspecified organism Time Spent (min) 45 (1) Sepsis Sepsis acute organ dysfunction status: unspecified Sepsis type: sepsis due to unspecified organism Qualified Code(s): A41.9 - Sepsis, unspecified organism
[2020-11-01] MEDS: DEXMEDETOMIDINE HCL 200 MCG in SODIUM CHLORIDE 0.9% 48 ML IV SCH ×2 (17:21→22:43)
[2020-11-01] MEDS: propofoL 1,000 MG/100 ML VIAL IV SCH (17:21)
[2020-11-01] MEDS: ASPIRIN 81 MG CHEW PO SCH (19:49)
[2020-11-01] MEDS: MELATONIN 3 MG TAB PO SCH (19:50)
[2020-11-02] MEDS: ARTIFICIAL TEARS OP OINT 3.5 GM TUBE OP SCH ×6 (00:07→20:17)
[2020-11-02] MEDS: INSULIN ASPART 100 UNITS/ML 3 ML PEN SC SCH ×6 (00:29→20:15)
[2020-11-02] MEDS: ENOXAPARIN 100 MG/1ML SYR SQ SCH ×2 (00:29→13:06)
[2020-11-02 02:10] LABS: iSTAT Arterial Blood Gas HCO3 37 meg/L (19-24); iSTAT Arterial Blood Gas pCO2 50 mmHg (35-46); iSTAT Arterial Blood Gas pH 7.47 (7.35-7.45); iSTAT Arterial Blood Gas pO2 56 mmHg (80-95); iSTAT Carbon Dioxide 38 mmol/L (24-31); iSTAT FiO2 45 %; iSTAT Site Art Line
[2020-11-02 02:15] LABS: Basophils # (auto) 0.02 K/uL (0-0.2); Basophils % (auto) 0.1 %; Eosinophils # (auto) 0.35 K/uL (0-0.5); Eosinophils % (auto) 2.4 %; Hematocrit (blood only) 30.7 % (37-47); Hemoglobin 10.1 g/dL (12.0-16.0); Immature Granulocytes # (auto) 0.67 K/uL (0.00-0.02); Immature Granulocytes % (auto) 4.7 %; Lymphocytes # (auto) 0.63 K/uL (1.2-3.4); Lymphocytes % (auto) 4.4 %; Mean Corpuscular Hemoglobin 32.3 pg (25-34); Mean Corpuscular Hgb Conc 32.9 g/dL (32-36); Mean Corpuscular Volume 98.1 fL (80-100); Mean Platelet Volume 9.6 fL (7.4-10.4); Monocytes # (auto) 0.45 K/uL (0.11-0.59); Monocytes % (auto) 3.1 %; Neutrophils # (auto) 12.27 K/uL (1.4-6.5); Neutrophils % (auto) 85.3 %; Nucleated RBC # (auto) 0.04 K/uL (0-0); Nucleated RBC % (auto) 0.3 %; Platelet Count 145 K/uL (130-400); RDW Coefficient of Variation 14.5 % (11.5-14.5); Red Blood Count 3.13 M/uL (4.2-5.4); White Blood Count 14.39 K/uL (4.8-10.8)
[2020-11-02 03:23] LABS: Alanine Aminotransferase 43 U/L (12-78); Albumin Globulin Ratio 0.4 (0.9-2); Albumin Level 1.5 gm/dl (3.4-5.0); Alkaline Phosphatase 97 U/L (45-117); Aspartate Aminotransferase 19 U/L (15-37); Bilirubin,Total 0.4 mg/dl (0.2-1); Calcium 8.3 mg/dl (8.5-10.1); Carbon Dioxide 34 mmol/L (21-32); Chloride 100 mmol/L (98-107); Creatinine Clr Calc Pharmacy 185.6 ml/min; Est GFR (African American) 129.6; Est GFR (Non-African American) 111.8; Globulin 3.7 gm/dl (2.5-4.0); Glucose 126 mg/dl (70-99); Magnesium 1.9 mg/dl (1.8-2.4); Phosphorus 2.4 mg/dl (2.5-4.9); Potassium 4.2 mmol/L (3.5-5.1); Sodium 136 mmol/L (136-145); Total Protein 5.2 gm/dl (6.4-8.2)
[2020-11-02 03:30] LABS: Blood Urea Nitrogen 19 mg/dl (7-18)
[2020-11-02 03:35] LABS: Troponin I < 0.015 ng/ml (0-0.045)
[2020-11-02] MEDS: propofoL 1,000 MG/100 ML VIAL IV SCH ×4 (04:20→23:12)
[2020-11-02] MEDS: LEVOTHYROXINE SODIUM 75 MCG TABLET PO SCH (05:31)
[2020-11-02] MEDS: PANTOprazole 40 MG in SYRINGE 0 ML IV SCH (11:06)
[2020-11-02] MEDS: CHOLECALCIFEROL 1,000 UNITS 25 MCG TAB PO SCH (11:06)
[2020-11-02] MEDS: ACETAMINOPHEN SUSP 500 MG/15.6 ML UDP PO PRN (11:06)
[2020-11-02] MEDS: MULTI VIT W/MINERALS LIQUID 15 ML UDP PO SCH (11:06)
[2020-11-02] MEDS: MIDAZOLAM HCL 125 MG/250 ML BAG IV SCH (11:25)
--- NOTE | 2020-11-02 11:48 | Critical Care Progress Note ---
Date of Service November 02, 2020 Assessment & Plan (1) 2019 novel coronavirus–infected pneumonia (NCIP)#8211;infected pneumonia (NCIP): Impression: 69-year-old female with severe acute hypoxemic respiratory failure intubated due to novel coronavirus with ARDS. 24-hour events: Patient was initiated on Precedex and propofol but Precedex resulted in sinus pauses of up to 4 seconds and this was discontinued. She has been maintained on propofol for sedation and doing reasonably well. Her vent settings have remained stable. She has been hemodynamically stable. She is not yet had a bowel movement. PLAN: Neuro: Continue propofol and as needed fentanyl and Versed. Unable to wean sedation due to high ventilator requirements currently. Hold on additional Precedex given the patient's bradycardia Resp: ARDS secondary to coronavirus infection. The patient is currently day #7 mechanical ventilation with diffuse pulmonary infiltrates. She continues to require high levels of ventilatory support with high PEEP and high FiO2. Plateau pressures in the high teens to low 20s this morning with improved compliance in the mid 40 range. Discussed with proxy medical decision maker the potential need for tracheostomy. She is on board. If she fails to make significant progress towards mechanical ventilation liberation towards the end of this week we will consider bedside percutaneous dilatation of tracheostomy. Could consider Maduri protocol for late-phase ARDS however we will see how she does in the next 24 hours. CV: SVT: Resolved. Blood pressure under adequate control. Continue diuresis attempts ID: Fever curve better. Off antibiotics. Awaiting respiratory cultures GI/Nutrition: Advancing tube feedings to goal. Start lactulose for bowel regiment. Will give enema given KUB pattern Heme: Continue DVT prophylaxis with Lovenox. Endocrine: Glycemic control per protocol. Continue Synthroid Vascular access: Left subclavian placed 10/27 arterial line placed 10/27 Code Status: Full Disposition: ICU Patient remains critically ill with significant possibility of clinical decline and . A total of 38 minutes critical care time was spent in evaluation management of this patient with life-threatening illness. Admission and Anticipated Discharge Date Admission Date: October 15, 2020 Subjective Intubated and sedated Review of Systems Review of Systems: Unchanged from prior Results & Data Results & Data ([facility]) Vital Signs (Past 12 Hours) Vital Signs Temp Pulse Resp BP Pulse Ox 11/02/20 09:00 37.7 C H 57 L 134/47 L 93 12/15/20 08:15 75 21 94 11/02/20 08:00 37.5 C 56 L 127/51 L 94 11/02/20 07:00 37.3 C 56 L 119/49 L 93 11/02/20 05:53 57 L 22 89 L 11/02/20 04:00 37.5 C 75 120/63 83 L 11/02/20 03:30 37.5 C 72 133/49 L 84 L 11/02/20 03:00 37.4 C 70 117/55 L 86 L 11/02/20 02:30 37.4 C 61 22 139/57 L 87 L 11/02/20 02:00 37.4 C 57 L 131/55 L 88 L 11/02/20 01:30 37.3 C 55 L 121/61 90 11/02/20 01:00 37.3 C 58 L 119/59 L 90 11/02/20 00:30 37.2 C 56 L 110/45 L 89 L 11/02/20 00:00 37.2 C 57 L 103/65 89 L 11/01/20 23:52 55 L 24 89 L Laboratory Results 11/02/20 01:55 11/02/20 01:55 Sodium 136, potassium 4.2, chloride 100, bicarb 34, BUN 19, creatinine 0.35 and glucose of 126 Albumin 1.2. Respiratory culture pending Diagnostic Findings Chest x-ray from today was independently reviewed. Endotracheal tube about 5 cm above the emeterio but remains within the heads of the clavicles. Subclavian line in good position. There are persistent bilateral interstitial opacities more confluent at the left lung base. Not appreciably changed from prior Coding Level of Care Code Critical Care 1st 30-74 mins Diagnoses 2019 novel coronavirus–infected pneumonia (NCIP)#8211;infected pneumonia (NCIP) U07.1; J12.89 Time Spent (min) 38
[2020-11-02] MEDS ORDERED: FUROSEMIDE 40 MG/4 ML VIAL IV ONE ×2 (12:00)
[2020-11-02] MEDS ORDERED: acetaZOLAMIDE 500 MG in SYRINGE 0 ML IV ONE (12:15)
--- NOTE | 2020-11-02 12:25 | XRay Report ---
KUB HISTORY: Abdominal distension COMPARISON: Abdomen and pelvis CT 05/23/2007. FINDINGS: No dilated loops of bowel to suggest an obstruction. Moderate well-formed stool seen within the colon and rectum. A rectal thermometer is noted. Prior cholecystectomy. Nasogastric tube is seen within the stomach. The tip is not included on this study. No renal calculi. No ureteral calculi. N o pneumoperitoneum or pneumatosis. IMPRESSION: 1. No evidence for bowel obstruction. 2. Moderate well-formed stool seen within the colon and rectum. 3. Nasogastric tube is seen within the stomach. The tip is not included on this study. ACT 112: Negative or not required by law. Electronically signed by: Can Mayers M.D. 11/02/2020 12:24 PM
[2020-11-02] MEDS: fentaNYL DRIP 1,250 MCG/250 ML BAG IV SCH ×2 (12:58→23:13)
[2020-11-02] MEDS: LACTULOSE SYRUP 20 GM/30 ML UDC PO SCH (12:59)
[2020-11-02] MEDS: METOCLOPRAMIDE HCL 5 MG TABLET PO SCH ×2 (13:02→21:45)
[2020-11-02] MEDS: PEPTAMEN INTENSE VHP 1.0 CAL 1,000 ML BAG OG SCH (16:45)
--- NOTE | 2020-11-02 18:15 | Hospitalist Progress Note ---
Date of Service November 02, 2020 Assessment & Plan (1) Acute respiratory failure with hypoxia: Intubated on 10/27, turned prone. ARDSnet settings with high PEEP and low FiO2 no real improvement in lung compliance when switching from supine to prone. She and her family agreed to intubation and [facility] ventilation. Intubated on 10/27. -> She would like her niece Dipak to make decisions for her while on the ventilator. No change presently. Her compliance is poor with high Ppeak and high driving pressures. (2) Pneumonia due to COVID-19 virus: stop Decadron 10/29, it has been 14 days completed course of Remdesivir, LD 10/19 convalescent plasma on 10/16 Prognosis remains poor but ventilation is her only option to pull through. (3) Atrial fibrillation: Patient developed atrial fibrillation in the face of her hypoxic respiratory distress on 10/22. cardiology recommended amiodarone therapy without bolus and 1 dose of digoxin 0.5. Patient reportedly broke and became slightly bradycardic at times in a junctional rhythm continue full anticoagulation for now, Lovenox 100 q12 not currently on any rate or rhythm control medications continue to monitor on tele had SVT after brief code blue after intubation, no further episodes. (4) Sepsis: Source - COVID-19 +/- possible bacterial PNA completed course of Levaquin sepsis resolved (5) Prediabetes: HbA1C 5.9 in May. Glucose 129 on admission. BSG ACHS and will initially use correction factor only, Novolog in case dexamethasone increases her glucose levels so far BSG have been acceptable - 150-180. (6) Hyperlipidemia: Continue her usual rosuvastatin dosing. (7) GERD (gastroesophageal reflux disease): Continue her usual pantoprazole 40mg PO daily (8) Esophageal dysmotility: Aspiration precautions. (9) Hypothyroidism: TSH 1.31 in Aug. Continue levothyroxine 75 mcg PO daily (10) Anxiety: now on sedation (11) DVT prophylaxis: Lovenox therapeutic Lovenox currently Admission and Anticipated Discharge Date Admission Date: October 15, 2020 Subjective Intubated Review of Systems Review of Systems: Unobtainable due to endotracheal tube Physical Exam Constitutional: WD/WN, vitals as above + acute distress Eyes: EOM intact bilaterally; no conjunctival abnormality ENMT: external ear and nose normal, oropharynx normal Neck: trachea midline, no thyromegaly normal visual inspection Respiratory: + respiratory distress and + tachypneic Cardiovascular: RRR, no murmur, no edema Gastrointestinal (Abdomen): Inspection/Auscultation: abdomen normal to inspection; abdomen not distended Musculoskeletal: no cyanosis or clubbing, extremities motor strength 5/5 Skin: no rashes, warm and dry Neurologic: + does not move all extremities and + not awake Psychiatric: Orientation: + not alert and + not oriented to person Results & Data Results & Data ([facility]) Vital Signs (Past 12 Hours) Vital Signs Temp Pulse Resp BP Pulse Ox 11/02/20 15:01 81 148/60 H 88 L 11/02/20 14:20 79 22 91 11/02/20 14:00 37.3 C 79 149/55 H 91 11/02/20 13:00 37.4 C 60 123/48 L 90 11/02/20 12:00 37.6 C H 56 L 125/50 L 93 11/02/20 11:32 60 21 94 11/02/20 11:00 37.8 C H 60 129/60 93 11/02/20 10:00 37.8 C H 61 133/61 93 11/02/20 09:00 37.7 C H 57 L 134/47 L 93 11/02/20 08:15 75 21 94 11/02/20 08:00 37.5 C 56 L 127/51 L 94 11/02/20 07:00 37.3 C 56 L 119/49 L 93 PG Care Time/CCT Total # of Minutes Spent Total Time Spent with Patient: Total time spent is greater than 50% in coordination of care (as documented) at patient's floor/unit and/or counseling p atient: Coding Level of Care Code 06282 Subseq Hosp Care Lvl 3 Diagnoses Acute respiratory failure with hypoxia J96.01 Pneumonia due to COVID-19 virus U07.1; J12.89 Atrial fibrillation I48.91 Sepsis A41.9 Sepsis acute organ dysfunction status: unspecified Sepsis type: sepsis due to unspecified organism Prediabetes R73.03 Hyperlipidemia E78.5 GERD (gastroesophageal reflux disease) K21.9 Esophageal dysmotility K22.4 Hypothyroidism E03.9 Anxiety F41.9 DVT prophylaxis Z29.9 (1) Sepsis Sepsis acute organ dysfunction status: unspecified Sepsis type: sepsis due to unspecified organism Qualified Code(s): A41.9 - Sepsis, unspecified organism
--- NOTE | 2020-11-02 18:52 | XRay Report ---
XR chest 1V portable CLINICAL HISTORY: increasing hypoxia COMPARISON STUDY: Chest radiograph November 01, 2020. FINDINGS: The tip of the endotracheal tube is 4 cm above the emeterio. The tip of nasogastric tube is w ithin the gastric fundus. The tip of left subclavian central line is within the SVC. There is no pneu mothorax. No pleural effusion is identified. Cardiomediastinal silhouette is stable. Interstitial thi ckening and bilateral opacities, greater within left lung, have slightly increased. IMPRESSION: 1. Increase in interstitial thickening and bilateral opacities. The findings favor viral pneumonia ho wever pulmonary edema or ARDS could appear similar. 2. Satisfactory positioning of lines and tubes. ACT 112: Negative or not required by law. Electronically signed by: Israel Gar M.D. 11/02/2020 6:50 PM
[2020-11-02] MEDS ORDERED: Nursing to Pharmacy Communication SCH (19:30)
[2020-11-02] MEDS: MELATONIN 3 MG TAB PO SCH (21:42)
[2020-11-02] MEDS: ASPIRIN 81 MG CHEW PO SCH (21:47)
[2020-11-03] MEDS: ARTIFICIAL TEARS OP OINT 3.5 GM TUBE OP SCH ×6 (00:22→20:11)
[2020-11-03] MEDS: ENOXAPARIN 100 MG/1ML SYR SQ SCH (00:23)
[2020-11-03] MEDS: INSULIN ASPART 100 UNITS/ML 3 ML PEN SC SCH ×6 (00:30→20:11)
[2020-11-03] MEDS: propofoL 1,000 MG/100 ML VIAL IV SCH ×6 (03:03→21:46)
[2020-11-03 05:06] LABS: iSTAT Arterial Blood Gas HCO3 38 meg/L (19-24); iSTAT Arterial Blood Gas pCO2 74 mmHg (35-46); iSTAT Arterial Blood Gas pH 7.31 (7.35-7.45); iSTAT Arterial Blood Gas pO2 70 mmHg (80-95); iSTAT Carbon Dioxide > 40 mmol/L (24-31); iSTAT Site Art Line
[2020-11-03] MEDS: LEVOTHYROXINE SODIUM 75 MCG TABLET PO SCH (05:30)
[2020-11-03] MEDS: METOCLOPRAMIDE HCL 5 MG TABLET PO SCH ×3 (05:30→21:46)
[2020-11-03 07:03] LABS: Hematocrit (blood only) 30.4 % (37-47); Hemoglobin 9.4 g/dL (12.0-16.0); Mean Corpuscular Hemoglobin 31.2 pg (25-34); Mean Corpuscular Hgb Conc 30.9 g/dL (32-36); Mean Platelet Volume 10.1 fL (7.4-10.4); Nucleated RBC # (auto) 0.06 K/uL (0-0); Nucleated RBC % (auto) 0.6 %; Platelet Count 154 K/uL (130-400); RDW Coefficient of Variation 14.9 % (11.5-14.5); RDW Standard Deviation 54.1 fL (36.4-46.3); Red Blood Count 3.01 M/uL (4.2-5.4); White Blood Count 9.61 K/uL (4.8-10.8)
[2020-11-03 07:40] LABS: Albumin Globulin Ratio 0.4 (0.9-2); Albumin Level 1.4 gm/dl (3.4-5.0); BUN Creatinine Ratio 40.4 (10-20); Bilirubin,Total 0.5 mg/dl (0.2-1); Calcium 8.6 mg/dl (8.5-10.1); Creatinine Clr Calc Pharmacy 199.9 ml/min; Est GFR (African American) 133.5; Est GFR (Non-African American) 115.2; Globulin 3.6 gm/dl (2.5-4.0); Magnesium 2.1 mg/dl (1.8-2.4); Phosphorus 3.5 mg/dl (2.5-4.9)
[2020-11-03] MEDS: FUROSEMIDE 20 MG in SYRINGE 0 ML IV SCH ×2 (07:59→09:44)
[2020-11-03] MEDS: LACTULOSE SYRUP 20 GM/30 ML UDC PO SCH (08:00)
[2020-11-03 08:02] LABS: ALC (manual) 0.19 K/uL (1.2-3.4); ANC (manual) 8.36 K/uL (1.4-6.5); Eosinophils # (manual) 0.48 K/uL (0-0.5); Lymphocytes # (manual) 0.19 K/uL (1.2-3.4); Metamyelocytes # (manual) 0.48 K/uL (0-0); Neutrophils # (manual) 8.36 K/uL (1.4-6.5)
[2020-11-03] MEDS: ROSUVASTATIN CALCIUM 5 MG TAB PO SCH (08:02)
--- NOTE | 2020-11-03 09:39 | XRay Report ---
XR chest 1V portable CLINICAL HISTORY: Respiratory failure COMPARISON STUDY: 11/02/2020 FINDINGS: There is an endotracheal tube 4.5 cm above the emeterio. There is a left subclavian central v enous catheter present. There is a nasogastric tube within the stomach. There are persistent bilatera l pulmonary airspace opacities with equivocal slight improvement on the left. There are no significan t pleural effusions. No pneumothorax is visualized.[ IMPRESSION: 1. Persistent extensive bilateral pulmonary airspace opacities with equivocal slight improvement on t he left ACT 112: Negative or not required by law. Electronically signed by: Sheldon Saunders M.D. 11/03/2020 9:38 AM
[2020-11-03] MEDS: fentaNYL DRIP 1,250 MCG/250 ML BAG IV SCH ×3 (09:43→20:12)
[2020-11-03] MEDS: ACETAMINOPHEN SUSP 500 MG/15.6 ML UDP PO PRN (10:21)
[2020-11-03] MEDS ORDERED: hydrALAZINE HCL 20 MG/ML VIAL IV STA (10:41)
[2020-11-03] MEDS ORDERED: fentaNYL citrate 100 MCG/2 ML VIAL IV STA (10:41)
[2020-11-03] MEDS ORDERED: DEXAMETHASONE SOD PHOSPHATE 20 MG in SYRINGE 0 ML IV SCH (10:45)
[2020-11-03] MEDS ORDERED: hydrALAZINE HCL 20 MG/ML VIAL ONE (10:50)
--- NOTE | 2020-11-03 10:52 | Critical Care Progress Note ---
Date of Service November 03, 2020 Assessment & Plan (1) 2019 novel coronavirus–infected pneumonia (NCIP)#8211;infected pneumonia (NCIP): Impression: 69-year-old female with severe acute hypoxemic respiratory failure intubated due to novel coronavirus with ARDS. 24-hour events: Patient has been maintained on propofol and has been intermittently bradycardic but is now hypertensive. And she has continued to require high ventilator settings and we have been unable to wean significantly. She was initiated on diuretics and is starting to mobilize some fluid. PLAN: Neuro: Continue propofol and as needed fentanyl and Versed. Unable to wean sedation due to high ventilator requirements currently. Hold on additional Precedex given the patient's bradycardia. Resp: ARDS secondary to coronavirus infection. The patient is currently day #8 mechanical ventilation with diffuse pulmonary infiltrates. She continues to re quire high levels of ventilatory support with high PEEP and high FiO2. She is actually had an requirement for increased PEEP and FiO2 over the last 24 hours. Her chest x-ray looks better. I suspect she may be entering late-phase ARDS and will place her on 20 mg dexamethasone for 5 days followed by 10 mg dexamethasone for 5days for late-phase ARDS fibrosis. I suspect is highly likely the patient may require tracheostomy however her current vent settings would make this somewhat risky and will try and see if we can get her FiO2 and PEEP to wean down to the point that the procedure could be accomplished safely. I discussed this with her POA yesterday who was in agreement. We will continue attempts at diuresis. Her blood gas today demonstrates worsening hypercarbia but improved oxygenation in the setting of increasing her FiO2 and PEEP CV: SVT: Resolved. She is fully anticoagulated given this episode. Continue diuresis. We will add IV and oral hydralazine to her regiment. Given the sinus pauses we will hold on AV osbaldo blocking agents. ID: Fever curve better. Off antibiotics. Respiratory cultures no growth to date. White count now normal GI/Nutrition: Continue tube feedings to goal. Start lactulose for bowel regiment. KUB showed no evidence of obstruction but stool in the rectal vault. Enemas as needed Heme: Continue DVT prophylaxis with Lovenox. She is mildly anemic with no evidence of acute blood loss and no indication for transfusion. She is on full dose anticoagulation given her history of SVT or A. fib earlier in the course of her hospitalization with recommendations to continue this for 30 days. I think at this point time we can decrease her down to prophylactic doses as she has not had persistent SVT or atrial abnormalities Endocrine: Glycemic control per protocol. Continue Synthroid Vascular access: Left subclavian placed 10/27 arterial line placed 10/27 Code Status: Full Disposition: ICU Patient remains critically ill with significant possibility of clinical decline and . A total of 49 minutes critical care time was spent in evaluation management of this patient with life-threatening illness. Admission and Anticipated Discharge Date Admission Date: October 15, 2020 Subjective Intubated Review of Systems Review of Systems: Unchanged from prior Physical Exam Constitutional: + mechanically ventilated obese. intubated and sedated. Eyes: PERRL; no scleral abnormality Neck: trachea midline, no thyromegaly Respiratory: Coarse breath sounds bilaterally with crackles. No wheezing Cardiovascular: RRR, no murmur, no edema Gastrointestinal (Abdomen): normal bowel sounds, soft, nontender, no hepatosplenomegaly Musculoskeletal: Extremities: extremities normal to inspection Skin: no rashes, warm and dry Neurologic: Nonfocal exam Lymphatic: no cervical lymphadenopathy Results & Data Results & Data ([facility]) Vital Signs (Past 12 Hours) Vital Signs Temp Pulse Resp BP Pulse Ox 11/03/20 10:00 37.4 C 70 199/80 H 91 11/03/20 09:38 37.3 C 60 209/72 H 90 11/03/20 09:00 37.2 C 72 138/59 L 94 11/03/20 08:01 37.0 C 59 L 152/67 H 91 11/03/20 07:30 37.0 C 65 115/52 L 92 11/03/20 07:29 64 24 92 11/03/20 06:00 36.7 C 72 20 92 11/03/20 04:47 61 20 92 11/03/20 04:00 37 C 76 22 105/55 L 94 11/03/20 02:00 37.2 C 67 20 129/52 L 94 11/03/20 00:37 76 21 93 11/03/20 00:00 37.3 C 78 20 127/59 L 92 11/02/20 23:00 37.6 C H 76 22 151/82 H 93 Laboratory Results 11/03/20 06:27 11/03/20 06:27 10/15/20 10/26/20 10/27/20 11:41 10:22 14:38 ABG pH 7.46 H 7.26 L ABG pCO2 41 66 H ABG pO2 69 L 53 L ABG HCO3 28 H 29 H ABG O2 Saturation 94.7 80.4 L ABG Base Excess 4.1 H -0.9 VBG pH 7.43 H VBG pCO2 44 VBG pO2 34 VBG HCO3 29 VBG O2 Saturation 63.5 VBG Base Excess 3.9 I/O: -700 cc Diagnostic Findings Chest x-ray today was independently reviewed. Tubes and lines are stable. There are persistent bilateral hazy opacities with some clearing on the left. Coding Level of Care Code Critical Care 1st 30-74 mins Diagnoses 2019 novel coronavirus–infected pneumonia (NCIP)#8211;infected pneumonia (NCIP) U07.1; J12.89 Time Spent (min) 49
[2020-11-03] MEDS: MULTI VIT W/MINERALS LIQUID 15 ML UDP PO SCH (11:54)
[2020-11-03] MEDS: DEXAMETHASONE SOD PHOSPHATE 20 MG in DEXTROSE 5% 25 ML IV SCH (11:55)
[2020-11-03] MEDS: PANTOprazole 40 MG in SYRINGE 0 ML IV SCH (12:00)
--- NOTE | 2020-11-03 14:19 | Hospitalist Progress Note ---
Date of Service November 03, 2020 Assessment & Plan (1) Acute respiratory failure with hypoxia: Intubated on 10/27, turned prone. ARDSnet settings with high PEEP and low FiO2 no real improvement in lung compliance when switching from supine to prone. She and her family agreed to intubation and [facility] ventilation. Intubated on 10/27. -> She would like her niece Dipak to make decisions for her while on the ventilator. Worsening ventilator settings. Cheynes-Pinedo breathing at times per RT. Considering trach/PEG. (2) Pneumonia due to COVID-19 virus: stop Decadron 10/29, it has been 14 days completed course of Remdesivir, LD 10/19 convalescent plasma on 10/16 Prognosis remains poor but ventilation is her only option to pull through. (3) Atrial fibrillation: Patient developed atrial fibrillation in the face of her hypoxic respiratory distress on 10/22. cardiology recommended amiodarone therapy without bolus and 1 dose of digoxin 0.5. Patient reportedly broke and became slightly bradycardic at times in a junctional rhythm continue full anticoagulation for now, Lovenox 100 q12 not currently on any rate or rhythm control medications continue to monitor on tele had SVT after brief code blue after intubation, no further episodes. (4) Sepsis: Source - COVID-19 +/- possible bacterial PNA completed course of Levaquin sepsis resolved (5) Prediabetes: HbA1C 5.9 in May. Glucose 129 on admission. BSG ACHS and will initially use correction factor only, Novolog in case dexamethasone increases her glucose levels so far BSG have been acceptable - 150-180. (6) Hyperlipidemia: Continue her usual rosuvastatin dosing. (7) GERD (gastroesophageal reflux disease): Continue her usual pantoprazole 40mg PO daily (8) Esophageal dysmotility: Aspiration precautions. (9) Hypothyroidism: TSH 1.31 in Aug. Continue levothyroxine 75 mcg PO daily (10) Anxiety: now on sedation (11) DVT prophylaxis: Lovenox therapeutic Lovenox currently Admission and Anticipated Discharge Date Admission Date: October 15, 2020 Subjective Intubated Physical Exam Constitutional: WD/WN, vitals as above + acute distress Eyes: EOM intact bilaterally; no conjunctival abnormality ENMT: external ear and nose normal, oropharynx normal Neck: trachea midline, no thyromegaly normal visual inspection Respiratory: + respiratory distress and + tachypneic Cardiovascular: RRR, no murmur, no edema Gastrointestinal (Abdomen): Inspection/Auscultation: abdomen normal to inspection; abdomen not distended Musculoskeletal: no cyanosis or clubbing, extremities motor strength 5/5 Skin: no rashes, warm and dry Neurologic: + does not move all extremities and + not awake Psychiatric: Orientation: + not alert and + not oriented to person Results & Data Results & Data ([facility]) Vital Signs (Past 12 Hours) Vital Signs Temp Pulse Resp BP Pulse Ox 11/03/20 13:30 103 H 139/62 93 11/03/20 13:19 94 H 132/57 L 93 11/03/20 13:01 80 169/78 H 90 11/03/20 13:00 89 90 11/03/20 12:30 37.7 C H 105 H 166/57 H 88 L 11/03/20 12:00 37.6 C H 97 H 176/67 H 89 L 11/03/20 11:48 89 27 H 89 L 11/03/20 11:31 37.5 C 80 191/60 H 90 11/03/20 11:22 37.5 C 96 H 138/60 91 11/03/20 11:00 37.5 C 79 125/55 L 92 11/03/20 10:30 37.5 C 77 135/60 92 11/03/20 10:00 37.4 C 70 199/80 H 91 11/03/20 09:38 37.3 C 60 209/72 H 90 11/03/20 09:07 60 11/03/20 09:00 37.2 C 72 138/59 L 94 11/03/20 08:01 37.0 C 59 L 152/67 H 91 11/03/20 07:30 37.0 C 65 115/52 L 92 11/03/20 07:29 64 24 92 11/03/20 06:00 36.7 C 72 20 92 11/03/20 04:47 61 20 92 11/03/20 04:00 37 C 76 22 105/55 L 94 PG Care Time/CCT Total # of Minutes Spent Total Time Spent with Patient: Total time spent is greater than 50% in coordination of care (as documented) at patient's floor/unit and/or counseling patient: Coding Level of Care Code 89566 Subseq Hosp Care Lv 2 Diagnoses Acute respiratory failure with hypoxia J96.01 Pneumonia due to COVID-19 virus U07.1; J12.89 Atrial fibrillation I48.91 Sepsis A41.9 Sepsis acute organ dysfunction status: unspecified Sepsis type: sepsis due to unspecified organism Prediabetes R73.03 Hyperlipidemia E78.5 GERD (gastroesophageal reflux disease) K21.9 Esophageal dysmotility K22.4 Hypothyroidism E03.9 Anxiety F41.9 DVT prophylaxis Z29.9 (1) Sepsis Sepsis acute organ dysfunction status: unspecified Sepsis type: sepsis due to unspecified organism Qualified Code(s): A41.9 - Sepsis, unspecified organism
[2020-11-03] MEDS: hydrALAZINE HCL 25 MG TAB PO SCH ×2 (15:04→20:10)
[2020-11-03] MEDS: ACETAMINOPHEN 325 MG TAB PO PRN (16:54)
[2020-11-03] MEDS: PEPTAMEN INTENSE VHP 1.0 CAL 1,000 ML BAG OG SCH (17:15)
[2020-11-03] MEDS: ICU ELECTROLYTE REPLACEMENT PROTOCOL SCH (17:40)
[2020-11-03] MEDS: ASPIRIN 81 MG CHEW PO SCH (20:10)
--- NOTE | 2020-11-03 22:07 | Electrocardiogram Report ---
Test Reason : Blood Pressure : / mmHG Vent. Rate : 051 BPM Atrial Rate : 051 BPM P-R Int : 096 ms QRS Dur : 088 ms QT Int : 402 ms P-R-T Axes : 032 046 022 degrees QTc Int : 370 ms Sinus bradycardia with sinus arrhythmia with short AL Otherwise normal ECG When compared with ECG of 30-OCT-2020 18:46, QT has shortened Confirmed by Cong Gan ([id number]) on 11/03/2020 10:06:36 PM Referred By: REFERRED SELF Confirmed By:Cong Gan
[2020-11-04] MEDS: INSULIN ASPART 100 UNITS/ML 3 ML PEN SC SCH ×6 (00:14→21:50)
[2020-11-04] MEDS: ARTIFICIAL TEARS OP OINT 3.5 GM TUBE OP SCH ×6 (00:15→20:47)
[2020-11-04] MEDS: propofoL 1,000 MG/100 ML VIAL IV SCH ×6 (03:29→21:51)
[2020-11-04 04:23] LABS: iSTAT Art Bld Gas pCO2 Correct 55 mmHg (35-46); iSTAT Art Bld Gas pH Corrected 7.461 (7.35-7.45); iSTAT Arterial Blood Gas HCO3 39 meg/L (19-24); iSTAT Arterial Blood Gas pCO2 53 mmHg (35-46); iSTAT Arterial Blood Gas pH 7.47 (7.35-7.45); iSTAT Arterial Blood Gas pO2 44 mmHg (80-95); iSTAT Arterial Blood Gas pO2 C 46; iSTAT Carbon Dioxide > 40 mmol/L (24-31); iSTAT Hematocrit 28 % (37-47); iSTAT Hemoglobin 9.5 g/dl (12.0-16.0); iSTAT Potassium 4.1 mmol/L (3.3-5.0); iSTAT Site Art Line; iSTAT Sodium 134 mmol/L (135-144)
[2020-11-04] MEDS: METOCLOPRAMIDE HCL 5 MG TABLET PO SCH ×3 (05:14→21:52)
[2020-11-04] MEDS: LEVOTHYROXINE SODIUM 75 MCG TABLET PO SCH (05:14)
[2020-11-04] MEDS: POLYETHYLENE (MIRALAX) 17 GM PACK PO PRN (05:14)
[2020-11-04 05:56] LABS: Basophils # (auto) 0.02 K/uL (0-0.2); Basophils % (auto) 0.2 %; Eosinophils # (auto) 0.09 K/uL (0-0.5); Eosinophils % (auto) 0.7 %; Hemoglobin 9.7 g/dL (12.0-16.0); Immature Granulocytes # (auto) 0.54 K/uL (0.00-0.02); Immature Granulocytes % (auto) 4.2 %; Lymphocytes # (auto) 0.94 K/uL (1.2-3.4); Lymphocytes % (auto) 7.4 %; Mean Corpuscular Hgb Conc 32.3 g/dL (32-36); Mean Platelet Volume 9.4 fL (7.4-10.4); Monocytes # (auto) 0.37 K/uL (0.11-0.59); Monocytes % (auto) 2.9 %; Neutrophils # (auto) 10.77 K/uL (1.4-6.5); Neutrophils % (auto) 84.6 %; Platelet Count 174 K/uL (130-400); RDW Coefficient of Variation 14.7 % (11.5-14.5); RDW Standard Deviation 52.4 fL (36.4-46.3); Red Blood Count 3.03 M/uL (4.2-5.4); White Blood Count 12.73 K/uL (4.8-10.8)
[2020-11-04 06:40] LABS: Albumin Level 1.6 gm/dl (3.4-5.0); BUN Creatinine Ratio 40.2 (10-20); Calcium 8.7 mg/dl (8.5-10.1); Creatinine Clr Calc Pharmacy 206.2 ml/min; Est GFR (African American) 134.9; Est GFR (Non-African American) 116.4; Magnesium 2.2 mg/dl (1.8-2.4); Potassium 4.3 mmol/L (3.5-5.1)
[2020-11-04 06:43] LABS: Albumin Globulin Ratio 0.4 (0.9-2); Bilirubin,Total 0.4 mg/dl (0.2-1); Globulin 4.1 gm/dl (2.5-4.0); Phosphorus 3.2 mg/dl (2.5-4.9); Total Protein 5.7 gm/dl (6.4-8.2)
[2020-11-04] MEDS: ICU ELECTROLYTE REPLACEMENT PROTOCOL SCH ×2 (07:06→16:16)
[2020-11-04] MEDS: ENOXAPARIN INJ 40 MG/0.4 ML SYR SQ SCH ×2 (07:11→20:46)
[2020-11-04] MEDS: fentaNYL DRIP 1,250 MCG/250 ML BAG IV SCH ×2 (07:13→19:11)
[2020-11-04] MEDS: hydrALAZINE HCL 25 MG TAB PO SCH ×3 (07:53→21:51)
[2020-11-04] MEDS: LACTULOSE SYRUP 20 GM/30 ML UDC PO SCH (07:54)
[2020-11-04] MEDS: DEXAMETHASONE SOD PHOSPHATE 20 MG in DEXTROSE 5% 25 ML IV SCH (07:54)
[2020-11-04] MEDS: FUROSEMIDE 40 MG in SYRINGE 0 ML IV SCH (07:54)
--- NOTE | 2020-11-04 08:51 | XRay Report ---
XR chest 1V portable HISTORY: Pneumonia. Respiratory failure. COMPARISON: Chest 11/03/2020. FINDINGS: Lines and tubes remain unchanged in position with the endotracheal tube terminating 4 cm fr om the emeterio. No pneumothorax. Low lung volumes. Mild elevation of the right hemidiaphragm. Diffuse reticular nodule and hazy airspace opacities remain unchanged. No pleural effusions. No pneumothorax. IMPRESSION: 1. Satisfactory support line placement. 2. No change in the bilateral airspace opacities/interstitial thickening. ACT 112: Negative or not required by law. Electronically signed by: Can Mayers M.D. 11/04/2020 8:49 AM
[2020-11-04] MEDS ORDERED: DOCUSATE SODIUM SYRUP 100 MG/10 ML UDC PO STA (10:21)
[2020-11-04] MEDS ORDERED: SENNOSIDES 8.8 MG/5 ML UDC PO STA (10:21)
[2020-11-04] MEDS: FAMOTIDINE 20 MG in SYRINGE 3 ML IV SCH ×2 (11:31→21:52)
[2020-11-04] MEDS: MULTI VIT W/MINERALS LIQUID 15 ML UDP PO SCH (12:18)
--- NOTE | 2020-11-04 12:47 | Critical Care Progress Note ---
Date of Service November 04, 2020 Assessment & Plan (1) 2019 novel coronavirus–infected pneumonia (NCIP)#8211;infected pneumonia (NCIP): Impression: 69-year-old female with severe acute hypoxemic respiratory failure intubated due to novel coronavirus with ARDS. 24-hour events: Patient required increasing PEEP and FiO2 overnight and is currently back up to a PEEP of 14 with an FiO2 of 0.7. She has been hemodynamically stable and has had no additional issues of bradycardia or pauses. She remains sedated on propofol and Precedex. PLAN: Neuro: Continue propofol and as needed fentanyl and Versed. Unable to wean sedation due to high ventilator requirements currently. Hold on additional Precedex given the patient's bradycardia. Resp: ARDS secondary to coronavirus infection. The patient is currently day #9 mecha nical ventilation with diffuse pulmonary infiltrates. She continues to require high levels of ventilatory support with high PEEP and high FiO2. She is actually had an requirement for increased PEEP and FiO2 over the last 24 hours. Her chest x-ray today demonstrates progressive infiltrates. I suspect she may be entering late-phase ARDS and have initiated 20 mg dexamethasone for 5 days followed by 10 mg dexamethasone for 5days for late-phase ARDS fibrosis. I suspect is highly likely the patient may require tracheostomy however her current vent settings would make this somewhat risky and will try and see if we can get her FiO2 and PEEP to wean down to the point that the procedure could be accomplished safely. Current blood gas shows improvement in ventilation with worsening oxygenation. Current vent settings PRVC 20/360/14/0 0.7 with a peak pressure of 23 and a plateau pressure of 20 and a compliance in the mid 40s. End-tidal CO2 continues to correlate CV: SVT: Resolved. She had some issues with intermittent bradycardia but these appear to be stabilized ID: Fever curve better. Off antibiotics. White count did bump in the last 24 hours but multiple respiratory cultures of show no growth to date. Continue to follow cultures and if febrile would have low threshold for starting antibiotics for potential ventilator associated infection. GI/Nutrition: Continue tube feedings at goal. Intensifying bowel regimen to try and promote bowel movement. May consider Relistor if no bowel movement in the next 48 hours Heme: Continue DVT prophylaxis with Lovenox. She is mildly anemic with no evidence of acute blood loss and no indication for transfusion. Endocrine: Glycemic control per protocol. Continue Synthroid Vascular access: Left subclavian placed 10/27 arterial line placed 10/27 Code Status: Full Disposition: ICU Patient remains critically ill with significant possibility of clinical decline and . A total of 45 minutes critical care time was spent in evaluation management of this patient with life-threatening illness. I discussed with the patient's medical proxy decision-maker, Oksana Lopez. She was updated on the patient's status. I advised her that her current vent settings would preclude safely doing a bedside percutaneous dilatation of tracheostomy. In addition I advised that with her ventilator settings increasing over the last several days, this is not a favorable prognostic indicator and she may be approaching maxing out what we can do on the ventilator. We could consider transition to inverse ratio ventilation but I do not think she is a candidate for salvage extracorporeal membrane oxygenation or other aggressive interventions. I did advise them that if the patient continues to deteriorate and suffers a cardiopulmonary arrest, the utility of CPR would be quite low in this patient and I recommended changing status from full code to DO NOT RESUSCITATE. She is taken it under advisement and will discuss with other family members and get back to us. Admission and Anticipated Discharge Date Admission Date: October 15, 2020 Subjective Intubated and sedated Review of Systems Review of Systems: Unobtainable due to endotracheal tube Physical Exam Constitutional: well developed and + mechanically ventilated; not ill appearing Eyes: PERRL; no scleral abnormality Neck: trachea midline, no thyromegaly Respiratory: + labored breathing and + uses accessory muscles Cardiovascular: RRR, no murmur, no edema Gastrointestinal (Abdomen): normal bowel sounds, soft, nontender, no hepatosplenomegaly Musculoskeletal: Extremities: extremities normal to inspection Skin: no rashes, warm and dry Lymphatic: no cervical lymphadenopathy Results & Data Results & Data ([facility]) Vital Signs (Past 12 Hours) Vital Signs Temp Pulse Resp BP Pulse Ox 11/04/20 11:06 79 28 H 94 11/04/20 09:45 37.3 C 80 163/71 H 93 11/04/20 09:00 37.2 C 86 92 11/04/20 08:30 37.2 C 98 H 177/76 H 92 11/04/20 08:01 37.2 C 74 93 11/04/20 08:00 37.2 C 95 H 145/72 H 93 11/04/20 07:38 89 108/63 11/04/20 07:36 89 11/04/20 07:31 37.3 C 92 H 93 11/04/20 07:30 37.3 C 86 155/67 H 92 11/04/20 07:26 78 22 93 11/04/20 07:23 37.3 C 88 162/59 H 89 L 11/04/20 07:00 37.4 C 85 140/60 94 11/04/20 06:45 37.4 C 94 H 94 11/04/20 06:00 37.4 C 85 20 146/73 H 93 11/04/20 04:05 71 25 H 91 11/04/20 04:00 37.5 C 96 H 24 133/55 L 95 11/04/20 02:05 93 H 20 124/52 L 91 11/04/20 02:00 37.7 C H 91 H 32 H 188/74 H 91 Laboratory Results 11/04/20 05:27 11/04/20 05:27 Respiratory culture from yesterday no growth to date. Diagnostic Findings Chest x-ray from today was independently reviewed and compared to prior films. There are persistent and slightly progressive airspace opacities bilaterally. Tubes and support lines in good position Coding Level of Care Code Critical Care 1st 30-74 mins Diagnoses 2019 novel coronavirus–infected pneumonia (NCIP)#8211;infected pneumonia (NCIP) U07.1; J12.89 Time Spent (min) 45
[2020-11-04] MEDS: PEPTAMEN INTENSE VHP 1.0 CAL 1,000 ML BAG OG SCH (16:29)
--- NOTE | 2020-11-04 18:02 | Hospitalist Progress Note ---
Date of Service November 04, 2020 Assessment & Plan (1) Acute respiratory failure with hypoxia: Intubated on 10/27, turned prone. ARDSnet settings with high PEEP and low FiO2 no real improvement in lung compliance when switching from supine to prone. She and her family agreed to intubation and [facility] ventilation. Intubated on 10/27. -> She would like her niece Dipak to make decisions for her while on the ventilator. Worsening ventilator settings. Cheynes-Pinedo breathing at times per RT. Considering trach/PEG. Worsening today with [facility]. (2) Pneumonia due to COVID-19 virus: stop Decadron 10/29, it has been 14 days completed course of Remdesivir, LD 10/19 convalescent plasma on 10/16 Prognosis remains poor but ventilation is her only option to pull through. (3) Atrial fibrillation: Patient developed atrial fibrillation in the face of her hypoxic respiratory distress on 10/22. cardiology recommended amiodarone therapy without bolus and 1 dose of digoxin 0.5. Patient reportedly broke and became slightly bradycardic at times in a junctional rhythm continue full anticoagulation for now, Lovenox 100 q12 not currently on any rate or rhythm control medications continue to monitor on tele had SVT after brief code blue after intubation, no further episodes. (4) Sepsis: Source - COVID-19 +/- possible bacterial PNA completed course of Levaquin sepsis resolved (5) Prediabetes: HbA1C 5.9 in May. Glucose 129 on admission. BSG ACHS and will initially use correction factor only, Novolog in case dexamethasone increases her glucose levels so far BSG have been acceptable - 150-180. (6) Hyperlipidemia: Continue her usual rosuvastatin dosing. (7) GERD (gastroesophageal reflux disease): Continue her usual pantoprazole 40mg PO daily (8) Esophageal dysmotility: Aspiration precautions. (9) Hypothyroidism: TSH 1.31 in Aug. Continue levothyroxine 75 mcg PO daily (10) Anxiety: now on sedation (11) DVT prophylaxis: Lovenox therapeutic Lovenox currently Admission and Anticipated Discharge Date Admission Date: October 15, 2020 Subjective No response. Review of Systems Review of Systems: Unobtainable due to endotracheal tube Physical Exam Constitutional: WD/WN, vitals as above + acute distress Eyes: EOM intact bilaterally; no conjunctival abnormality ENMT: external ear and nose normal, oropharynx normal Neck: trachea midline, no thyromegaly normal visual inspection Respiratory: + respiratory distress and + tachypneic Cardiovascular: RRR, no murmur, no edema Gastrointestinal (Abdomen): Inspection/Auscultation: abdomen normal to inspection; abdomen not distended Musculoskeletal: no cyanosis or clubbing, extremities motor strength 5/5 Skin: no rashes, warm and dry Neurologic: + does not move all extremities and + not awake Psychiatric: Orientation: + not alert and + not oriented to person Results & Data Results & Data ([facility]) Vital Signs (Past 12 Hours) Vital Signs Temp Pulse Resp BP Pulse Ox 11/04/20 17:00 37.4 C 88 11/04/20 16:56 37.4 C 89 188/76 H 93 11/04/20 16:29 37.4 C 104 H 92 11/04/20 16:28 37.4 C 93 H 166/93 H 94 11/04/20 16:27 37.4 C 104 H 193/76 H 93 11/04/20 16:00 37.5 C 96 H 92 11/04/20 15:37 113 H 31 H 92 11/04/20 14:00 37.8 C H 111 H 178/91 H 91 11/04/20 13:30 37.9 C H 119 H 208/111 H 90 11/04/20 12:00 37.5 C 77 93 11/04/20 11:31 37.4 C 74 196/72 H 95 11/04/20 11:06 79 28 H 94 11/04/20 11:00 37.3 C 70 150/94 H 94 11/04/20 10:30 37.4 C 83 149/86 H 94 11/04/20 10:00 37.3 C 71 196/70 H 94 11/04/20 09:46 37.3 C 80 93 11/04/20 09:45 37.3 C 80 163/71 H 93 11/04/20 09:00 37.2 C 86 92 11/04/20 08:30 37.2 C 98 H 177/76 H 92 11/04/20 08:01 37.2 C 74 93 11/04/20 08:00 37.2 C 95 H 145/72 H 93 11/04/20 07:38 89 108/63 11/04/20 07:36 89 11/04/20 07:31 37.3 C 92 H 93 11/04/20 07:30 37.3 C 86 155/67 H 92 11/04/20 07:26 78 22 93 11/04/20 07:23 37.3 C 88 162/59 H 89 L 11/04/20 07:00 37.4 C 85 140/60 94 11/04/20 06:45 37.4 C 94 H 94 PG Care Time/CCT Total # of Minutes Spent Total Time Spent with Patient: Total time spent is greater than 50% in coordination of care (as documented) at patient's floor/unit and/or counseling patient: Coding Level of Care Code 54564 Subseq Hosp Care Lvl 2 Diagnoses Acute respiratory failure with hypoxia J96.01 Pneumonia due to COVID-19 virus U07.1; J12.89 Atrial fibrillation I48.91 Sepsis A41.9 Sepsis acute organ dysfunction status: unspecified Sepsis type: sepsis due to unspecified organism Prediabetes R73.03 Hyperlipidemia E78.5 GERD (gastroesophageal reflux disease) K21.9 Esophageal dysmotility K22.4 Hypothyroidism E03.9 Anxiety F41.9 DVT prophylaxis Z29.9 (1) Sepsis Sepsis acute organ dysfunction status: unspecified Sepsis type: sepsis due to unspecified organism Qualified Code(s): A41.9 - Sepsis, unspecified organism
[2020-11-04] MEDS ORDERED: PROPOFOL IV EMULSION 10 MG/ML 100 ML VIAL IV ONE (20:40)
[2020-11-04] MEDS ORDERED: STAT IV Infusion **Titration per Protocol STA (20:54)
[2020-11-04] MEDS: ASPIRIN 81 MG CHEW PO SCH (21:51)
[2020-11-05] MEDS: PROPOFOL BOLUS FROM BAG IV PRN ×3 (00:13→02:59)
[2020-11-05] MEDS: INSULIN ASPART 100 UNITS/ML 3 ML PEN SC SCH ×6 (00:48→20:54)
[2020-11-05] MEDS: propofoL 1,000 MG/100 ML VIAL IV SCH ×8 (02:36→20:54)
[2020-11-05] MEDS: fentaNYL DRIP 1,250 MCG/250 ML BAG IV SCH ×5 (03:01→21:17)
[2020-11-05] MEDS: ARTIFICIAL TEARS OP OINT 3.5 GM TUBE OP SCH ×5 (04:32→20:29)
[2020-11-05] MEDS: LEVOTHYROXINE SODIUM 75 MCG TABLET PO SCH (05:29)
[2020-11-05] MEDS: METOCLOPRAMIDE HCL 5 MG TABLET PO SCH ×3 (05:29→20:31)
[2020-11-05 05:42] LABS: iSTAT Arterial Blood Gas HCO3 41 meg/L (19-24); iSTAT Arterial Blood Gas pCO2 69 mmHg (35-46); iSTAT Arterial Blood Gas pH 7.38 (7.35-7.45); iSTAT Arterial Blood Gas pO2 48 mmHg (80-95); iSTAT Carbon Dioxide > 40 mmol/L (24-31); iSTAT Site Art Line
[2020-11-05] MEDS: ENOXAPARIN INJ 40 MG/0.4 ML SYR SQ SCH ×2 (07:14→20:27)
[2020-11-05] MEDS: LACTULOSE SYRUP 20 GM/30 ML UDC PO SCH (07:14)
[2020-11-05] MEDS: hydrALAZINE HCL 25 MG TAB PO SCH ×3 (07:15→20:34)
[2020-11-05] MEDS: ROSUVASTATIN CALCIUM 5 MG TAB PO SCH (07:15)
[2020-11-05] MEDS ORDERED: FUROSEMIDE 40 MG/4 ML VIAL IV ONE (07:17)
[2020-11-05] MEDS: DEXAMETHASONE SOD PHOSPHATE 20 MG in DEXTROSE 5% 25 ML IV SCH (07:18)
[2020-11-05] MEDS: FAMOTIDINE 20 MG in SYRINGE 3 ML IV SCH ×2 (07:18→20:38)
[2020-11-05] MEDS: FUROSEMIDE 40 MG in SYRINGE 0 ML IV SCH (07:20)
[2020-11-05 08:14] LABS: Basophils # (auto) 0.01 K/uL (0-0.2); Basophils % (auto) 0.1 %; Eosinophils # (auto) 0.09 K/uL (0-0.5); Eosinophils % (auto) 0.8 %; Hematocrit (blood only) 30.4 % (37-47); Hemoglobin 9.7 g/dL (12.0-16.0); Immature Granulocytes # (auto) 0.51 K/uL (0.00-0.02); Immature Granulocytes % (auto) 4.7 %; Lymphocytes # (auto) 0.66 K/uL (1.2-3.4); Mean Corpuscular Hemoglobin 31.8 pg (25-34); Mean Corpuscular Hgb Conc 31.9 g/dL (32-36); Mean Corpuscular Volume 99.7 fL (80-100); Mean Platelet Volume 9.7 fL (7.4-10.4); Monocytes # (auto) 0.84 K/uL (0.11-0.59); Monocytes % (auto) 7.7 %; Neutrophils # (auto) 8.85 K/uL (1.4-6.5); Neutrophils % (auto) 80.7 %; Nucleated RBC # (auto) 0.03 K/uL (0-0); Nucleated RBC % (auto) 0.3 %; Platelet Count 188 K/uL (130-400); RDW Coefficient of Variation 14.7 % (11.5-14.5); RDW Standard Deviation 52.4 fL (36.4-46.3); Red Blood Count 3.05 M/uL (4.2-5.4); White Blood Count 10.96 K/uL (4.8-10.8)
--- NOTE | 2020-11-05 08:44 | XRay Report ---
XR chest 1V portable HISTORY: Breast failure. Pneumonia. COMPARISON: Chest 11/04/2020. FINDINGS: Satisfactory support line placement with the endotracheal tube terminating 3.8 cm from the emeterio. There are low lung volumes. Bilateral airspace opacities persist. These are similar to the pr ior study. No pleural effusions. No pneumothorax. IMPRESSION: 1. Satisfactory support line placement. 2. No change in the bilateral airspace opacities. ACT 112: Negative or not required by law. Electronically signed by: Can Mayers M.D. 11/05/2020 8:43 AM
[2020-11-05 09:00] LABS: Albumin Globulin Ratio 0.4 (0.9-2); Albumin Level 1.6 gm/dl (3.4-5.0); BUN Creatinine Ratio 99.6 (10-20); Bilirubin,Total 0.3 mg/dl (0.2-1); Calcium 9.4 mg/dl (8.5-10.1); Creatinine Clr Calc Pharmacy 245.5 ml/min; Est GFR (African American) 142.9; Est GFR (Non-African American) 123.3; Magnesium 2.3 mg/dl (1.8-2.4); Phosphorus 3.5 mg/dl (2.5-4.9); Potassium 4.1 mmol/L (3.5-5.1); Total Protein 5.6 gm/dl (6.4-8.2)
[2020-11-05] MEDS: ICU ELECTROLYTE REPLACEMENT PROTOCOL SCH ×2 (09:10→18:06)
[2020-11-05] MEDS ORDERED: VECURONIUM BROMIDE 10 MG VIAL IV ONE (10:23)
[2020-11-05] MEDS ORDERED: VECURONIUM BROMIDE 10 MG VIAL IV STA (12:58)
[2020-11-05] MEDS: MULTI VIT W/MINERALS LIQUID 15 ML UDP PO SCH (14:02)
--- NOTE | 2020-11-05 14:09 | Procedure Note ---
Procedure Note Date of Service November 05, 2020 Procedure: Bedside percutaneous dilatation of tracheostomy Indication: Persistent hypoxemic respiratory failure due to Covid with need for mechanical ventilation. Consent: Risks and benefits were explained to the patient's medical power of civil litigation attorney, Ms. Lopez. Consent was obtained verified and timeout was performed prior to commencement of the procedure. Estimated blood loss: Less than 5 mL Research [address] Coordinator Dr. Zazueta Noise Tester: HUSAM Hopkins Anesthesia: Patient was maintained on propofol and fentanyl infusions. 100 mcg IV fentanyl was administered as a bolus. 10 mg of vecuronium administered for paralytics. Procedure: Timeout was performed. Appropriate imaging and laboratory studies were reviewed prior to commencement of the procedure. Patient was placed in supine position and a neck roll placed behind the shoulders to allow for extension of the neck. She was placed on 100% FiO2 on the ventilator. Landmarks were easily palpable in the thyroid and cricoid cartilages were easily identifiable. An area approximately 1 cm below the cricoid cartilage was palpated. Ultrasound was performed over this area which demonstrated no significant bridging vascular structures. After the patient was adequately sedated, the neck was prepped using chlorhexidine and allowed to dry completely. A sterile field was established. 10 cc of 1% lidocaine with epinephrine was used for local anesthesia in the area approximately 1cm beneath the cricoid cartilage. Once adequate anesthesia was obtained, the scalpel was used to make a 2cm horizontal incision over the trachea. Using blunt dissection with the curved hemostats and finger, we dissected down until the tracheal rings were palpable with my finger. The area was able to be blotted using the curved hemostats. At that point in time, HUSAM hopkins advance the fiberoptic bronchoscope through the existing endotracheal tube to the tip of the ET tube. The balloon was deflated and the tube was retracted with the bronchoscope to the level of the glottis until the anterior tracheal rings could be seen being blotted externally by the curved hemostats. At that point in time the tube was secured. An 18-gauge Angiocath was advanced through the second intratracheal ring and was observed to be within the airway bronchoscopically. The needle was removed and a wire was advanced through the Angiocath. It was observed extending into the distal airways. The catheter was removed and the rigid dilator was used to dilate the tract. It appeared that there was a fracture of one of the anterior cartilages with this dilatation. The Blue Rhino dilator with the guiding catheter in place was moistened with saline to allow the hydrophilic coating to activate. This catheter was then advanced over the wire and the tract dilated. The Rhino dilator was removed leaving the guiding catheter in place with the wire. A previously tested 6 oh Shiley catheter had been loaded on a loading catheter and was advanced over the wire and the guiding catheter into the airway. The guiding catheter and the wire were then removed leaving the tracheostomy tube in place. HUSAM hopkins then removed the fiberoptic bronchoscope from the endotracheal tube and advanced it through the newly placed tracheostomy and confirmed its position within the airway. Minimal bleeding was encountered. The bronchoscope was removed and the inner cannula for the tracheostomy was replaced and the patient attached to the ventilator and the balloon inflated. Return volumes were appropriate. The tracheostomy tube was secured in place with 2-0 Vicryl sutures at the 6 and 12:00 positions and trach ties and a drain sponge were applied. The shoulder roll was removed. The endotracheal tube and orogastric tubes were withdrawn from the oropharynx. The patient tolerated the procedure well with transient bradycardia during the procedure which resolved with reestablishment of the airway. Coding CPT Codes ENT - ENT: 02430 Incision of windpipe ([id number]) [facility] Procedure Codes (Charges) ENT ENT: 53946 Incision of windpipe
--- NOTE | 2020-11-05 14:10 | Hospitalist Progress Note ---
Date of Service November 05, 2020 Assessment & Plan (1) Acute respiratory failure with hypoxia: Intubated on 10/27, turned prone. ARDSnet settings with high PEEP and low FiO2 no real improvement in lung compliance when switching from supine to prone. She and her family agreed to intubation and [facility] ventilation. Intubated on 10/27. -> She would like her niece Dipak to make decisions for her while on the ventilator. Worsening ventilator settings. [place]Pinedo breathing at times per RT. Planning for trach soon. (2) Pneumonia due to COVID-19 virus: stop Decadron 10/29, it has been 14 days completed course of Remdesivir, LD 10/19 convalescent plasma on 10/16 Prognosis remains poor but ventilation is her only option to pull through. (3) Atrial fibrillation: Patient developed atrial fibrillation in the face of her hypoxic respiratory distress on 10/22. cardiology recommended amiodarone therapy without bolus and 1 dose of digoxin 0.5. Patient reportedly broke and became slightly bradycardic at times in a junctional rhythm continue full anticoagulation for now, Lovenox 100 q12 not currently on any rate or rhythm control medications continue to monitor on tele had SVT after brief code blue after intubation, no further episodes. (4) Sepsis: Source - COVID-19 +/- possible bacterial PNA completed course of Levaquin sepsis resolved (5) Prediabetes: HbA1C 5.9 in May. Glucose 129 on admission. BSG ACHS and will initially use correction factor only, Novolog in case dexamethasone increases her glucose levels so far BSG have been acceptable - 150-180. (6) Hyperlipidemia: Continue her usual rosuvastatin dosing. (7) GERD (gastroesophageal reflux disease): Continue her usual pantoprazole 40mg PO daily (8) Esophageal dysmotility: Aspiration precautions. (9) Hypothyroidism: TSH 1.31 in Aug. Continue levothyroxine 75 mcg PO daily (10) Anxiety: now on sedation (11) DVT prophylaxis: Lovenox therapeutic Lovenox currently Admission and Anticipated Discharge Date Admission Date: October 15, 2020 Subjective Intubated. Review of Systems Review of Systems: Unobtainable due to endotracheal tube Physical Exam Constitutional: WD/WN, vitals as above + acute distress Eyes: EOM intact bilaterally; no conjunctival abnormality ENMT: external ear and nose normal, oropharynx normal Neck: trachea midline, no thyromegaly normal visual inspection Respiratory: + respiratory distress and + tachypneic Cardiovascular: RRR, no murmur, no edema Gastrointestinal (Abdomen): Inspection/Auscultation: abdomen normal to inspection; abdomen not distended Musculoskeletal: no cyanosis or clubbing, extremities motor strength 5/5 Skin: no rashes, warm and dry Neurologic: + does not move all extremities and + not awake Psychiatric: Orientation: + not alert and + not oriented to person Results & Data Results & Data ([facility]) Vital Signs (Past 12 Hours) Vital Signs Temp Pulse Resp BP Pulse Ox 11/05/20 12:00 37.1 C 118 H 92/52 L 90 11/05/20 11:44 108 H 21 90 11/05/20 11:00 37.0 C 127 H 95/54 L 96 11/05/20 10:00 37.0 C 134 H 91/51 L 96 11/05/20 09:38 37.0 C 128 H 112/54 L 97 11/05/20 09:21 37.0 C 90 11/05/20 09:20 37.0 C 112/54 L 90 11/05/20 09:01 37.0 C 135 H 88 L 11/05/20 09:00 37.0 C 128 H 11/05/20 08:00 36.8 C 113 H 87 L 11/05/20 07:43 91 H 23 87 L 11/05/20 07:00 36.7 C 96 H 98/49 L 89 L 11/05/20 06:12 36.6 C 71 115/56 L 93 11/05/20 06:01 36.6 C 61 92 11/05/20 06:00 36.6 C 75 121/51 L 92 11/05/20 05:01 36.6 C 67 94 11/05/20 05:00 36.6 C 68 108/49 L 89 L 11/05/20 04:00 36.8 C 78 100/47 L 92 11/05/20 03:00 37.1 C 92 H 133/60 92 11/05/20 02:42 37.1 C 74 169/65 H 91 11/05/20 02:14 79 27 H 91 PG Care Time/CCT Total # of Minutes Spent Total Time Spent with Patient: Total time spent is greater than 50% in coordination of care (as documented) at patient's floor/unit and/or counseling patient: Coding Level of Care Code 79053 Subseq Hosp Care Lvl 2 Diagnoses Acute respiratory failure with hypoxia J96.01 Pneumonia due to COVID-19 virus U07.1; J12.89 Atrial fibrillation I48.91 Sepsis A41.9 Sepsis acute organ dysfunction status: unspecified Sepsis type: sepsis due to unspecified organism Prediabetes R73.03 Hyperlipidemia E78.5 GERD (gastroesophageal reflux disease) K21.9 Esophageal dysmotility K22.4 Hypothyroidism E03.9 Anxiety F41.9 DVT prophylaxis Z29.9 (1) Sepsis Sepsis acute organ dysfunction status: unspecified Sepsis type: sepsis due to unspecified organism Qualified Code(s): A41.9 - Sepsis, unspecified organism
--- NOTE | 2020-11-05 14:13 | Critical Care Progress Note ---
Date of Service November 05, 2020 Assessment & Plan (1) 2019 novel coronavirus–infected pneumonia (NCIP)#8211;infected pneumonia (NCIP): Impression: 69-year-old female with severe acute hypoxemic respiratory failure intubated due to novel coronavirus with ARDS. 24-hour events: Patient has been about the same with regards to her pulmonary status. Her ventilatory requirements oscillate mildly but have not changed significantly. She has been hemodynamically stable. PLAN: Neuro: Continue propofol and as needed fentanyl and Versed. Unable to wean sedation due to high ventilator requirements currently. Hold on additional Precedex given the patient's bradycardia. Resp: ARDS secondary to coronavirus infection. The patient is currently day #10 mechanical ventilation with diffuse pulmonary infiltrates. I suspect she may be entering late-phase ARDS and have initiated 20 mg dexamethasone for 5 days followed by 10 mg dexamethasone for 5 days for late-phase ARDS fibrosis. I discussed with her MD SAWYER today and recommended proceeding with percutaneous dilatation of tracheostomy which she was agreeable to. Please see separate procedure notes. Hopefully once the trach is placed, will be able to wean her sedation significantly. CV: SVT: Intermittent what appears to be atrial tachycardia. She had some issues with intermittent bradycardia as well as well as intermittent hypotension. She is currently hemodynamically stable and in a normal rhythm. She had been on full dose anticoagulation previously and this may need to be resumed if the patient has persistent episodes of atrial arrhythmia. ID: Fever curve better. Off antibiotics. White count decreasing with multiple respiratory cultures no growth to date. Continue to follow cultures and if febrile would have low threshold for starting antibiotics for potential ventilator associated infection. GI/Nutrition: Will discontinue the orogastric tube when the percutaneous dilatation of tracheostomy is placed. We will need to replace nasoenteric feeding tube. Confirmation radiographically prior to continuation of tube feeding. Heme: Continue DVT prophylaxis with Lovenox. She is mildly anemic with no evidence of acute blood loss and no indication for transfusion. Endocrine: Glycemic control per protocol. Continue Synthroid Vascular access: Left subclavian placed 10/27 arterial line placed 10/27 Code Status: Full Disposition: ICU Patient remains critically ill with significant possibility of clinical decline and . A total of 47 minutes critical care time was spent in evaluation management of this patient with life-threatening illness exclusive of procedures. I discussed with the patient's medical proxy decision-maker, Oksana Loepz. She was updated on the patient's status today. We are still awaiting a decision regarding CODE STATUS but I think it would be appropriate to make the patient DO NOT RESUSCITATE in the event of a cardiopulmonary arrest. They have taken it under advisement. She did consent to the tracheostomy tube today Admission and Anticipated Discharge Date Admission Date: October 15, 2020 Subjective Patient is intubated and sedated Review of Systems Review of Systems: Unobtainable due to endotracheal tube Physical Exam Constitutional: + mechanically ventilated Intubated and sedated Eyes: PERRL; no scleral abnormality Neck: trachea midline, no thyromegaly Respiratory: + labored breathing and + uses accessory muscles Cardiovascular: RRR, no murmur, no edema Gastrointestinal (Abdomen): normal bowel sounds, soft, nontender, no hepatosplenomegaly Musculoskeletal: Extremities: extremities normal to inspection Skin: no rashes, warm and dry Lymphatic: no cervical lymphadenopathy Results & Data Results & Data ([facility]) Vital Signs (Past 12 Hours) Vital Signs Temp Pulse Resp BP Pulse Ox 11/05/20 12:00 37.1 C 118 H 92/52 L 90 11/05/20 11:44 108 H 21 90 11/05/20 11:00 37.0 C 127 H 95/54 L 96 11/05/20 10:00 37.0 C 134 H 91/51 L 96 11/05/20 09:38 37.0 C 128 H 112/54 L 97 11/05/20 09:21 37.0 C 90 11/05/20 09:20 37.0 C 112/54 L 90 11/05/20 09:01 37.0 C 135 H 88 L 11/05/20 09:00 37.0 C 128 H 11/05/20 08:00 36.8 C 113 H 87 L 11/05/20 07:43 91 H 23 87 L 11/05/20 07:00 36.7 C 96 H 98/49 L 89 L 11/05/20 06:12 36.6 C 71 115/56 L 93 11/05/20 06:01 36.6 C 61 92 11/05/20 06:00 36.6 C 75 121/51 L 92 11/05/20 05:01 36.6 C 67 94 11/05/20 05:00 36.6 C 68 108/49 L 89 L 11/05/20 04:00 36.8 C 78 100/47 L 92 11/05/20 03:00 37.1 C 92 H 133/60 92 11/05/20 02:42 37.1 C 74 169/65 H 91 11/05/20 02:14 79 27 H 91 Laboratory Results 11/05/20 07:09 11/05/20 07:09 Diagnostic Findings Chest x-ray from today was independently reviewed. Tubes and lines are in good position. There are persistent diffuse bilateral parenchymal opacities, slightly progressed from prior. Coding Level of Care Code Critical Care 1st 30-74 mins Diagnoses 2019 novel coronavirus–infected pneumonia (NCIP)#8211;infected pneumonia (NCIP) U07.1; J12.89 Time Spent (min) 45
--- NOTE | 2020-11-05 14:19 | Procedure Note ---
Procedure Note Date of Service November 05, 2020 Note Attending: Dr. Zazueta Procedure Name: Fiberoptic bronchoscopy for placement of percutaneous tracheostomy tube Procedure time out: 13:20 site verified, patient ID confirmed, correct procedure Consent obtained: written (The risks, benefits, indications, potential complications, and alternatives were explained to the family and informed consent obtained by Dr. Zazueta.) Time of procedure: 1320 Performed by: physician clinical studies specialist with supervision throughout the entire procedure by Dr. Zazueta Indications: diagnostic, therapeutic Contraindications: none Indication: Patient requiring percutaneous placement of tracheostomy tube. Fiberoptic bronchoscopy required for clearance of secretions prior to the procedure, visualization of cannulization, and verification of airways status post procedure. Description: Bronchoscopic inspection of the airways was completed prior to the start of the percutaneous tracheostomy surgical procedure. The right and main left bronchus as well as the segmental branches of the right middle and right lower lobe and left upper, lingula and left lower lobes were examined with no blood or other mucous plugging. There were minimal secretions at the emeterio which were easily suctioned and evacuated with the bronchoscope. Otherwise, airways were clear of any blood or mucus. The fiberoptic bronchoscope was introduced into the endotracheal tube. The needle entry site in the trachea midline was visualized as was the placement of the guidewire into the distal trachea. Photographs were taken to confirm placement of the guidewire After placement of the tracheostomy tube, the bronchoscope was withdrawn from the endotracheal tube and introduced through the tracheostomy tube to confirm correct placement. The bronchoscope was then withdrawn to allow suturing of the tracheostomy tube into position. There was no evidence of bronchial trauma on the final examination with the fiberoptic bronchoscope. After confirmation of position and securement of the tracheostomy tube the endotracheal tube was removed without difficulty or complication. Dr. Zazueta was present for the entire procedure as he was performing a percutaneous tracheostomy placement Complications: none Patient tolerated procedure: well Post-procedure vital signs: reviewed and stable Comments: The patient received fentanyl propofol infusion with a secured airway. Once the patient was adequately sedated, vecuronium was administered for neuromuscular blockade. This was ordered and monitored by Dr. Zazueta during my portion of the procedure Coding CPT Codes Pulmonary/Thoracic - Pulmonary and Thoracic: 28540 Bronchoscopy, clear airways ([id number]) [facility] [place] Codes (Charges) Indication for Procedure Indication for procedure: Patient requiring percutaneous placement of tracheostomy tube. Fiberoptic bronchoscopy required for clearance of secretions prior to the procedure, visualization of cannulization, and verification of airways status post procedure. Pulmonary/Thoracic Procedure 1: Pulmonary and Thoracic: 99107 Bronchoscopy, clear airways
--- NOTE | 2020-11-05 15:26 | XRay Report ---
SINGLE VIEW CHEST CLINICAL HISTORY: Enteric tube placement. FINDINGS: An AP, portable, upright chest radiograph is compared to study performed earlier the same d ay 11/05/2020. The examination is degraded by portable technique and patient rotation. A portion of t he right lung as correlated from view. An enteric tube has been placed. The tip projects below the di aphragm over the mid stomach. A left subclavian central venous catheter is unchanged in position. An endotracheal tube is removed and a tracheostomy has been placed. The cardiomediastinal silhouette is unremarkable noting atherosclerotic calcification of the thoracic aorta. Multifocal airspace consolid ation is seen throughout both lungs. No large pleural effusion or pneumothorax is seen. The skeletal structures are osteopenic. The bony thorax is grossly intact. IMPRESSION: 1. An enteric tube has been placed. The tip projects below the diaphragm over the mid stomach. 2. The endotracheal tube has been removed and a tracheostomy has been placed. 3. Multifocal airspace consolidation is unchanged from previous. ACT 112: Negative or not required by law. Electronically signed by: Steven Chavez M.D. 11/05/2020 3:25 PM
[2020-11-05] MEDS: MEROPENEM 500 MG in SYRINGE 0 ML IV SCH ×2 (16:34→20:38)
[2020-11-05] MEDS: PEPTAMEN INTENSE VHP 1.0 CAL 1,000 ML BAG OG SCH (16:34)
[2020-11-05] MEDS: ASPIRIN 81 MG CHEW PO SCH (21:00)
[2020-11-05] MEDS ORDERED: MIDAZOLAM HCL 1 MG/ML 2ML VIAL IV PRN (22:12)
[2020-11-06] MEDS: ARTIFICIAL TEARS OP OINT 3.5 GM TUBE OP SCH ×6 (00:11→19:57)
[2020-11-06] MEDS: INSULIN ASPART 100 UNITS/ML 3 ML PEN SC SCH ×6 (00:11→20:16)
[2020-11-06] MEDS: propofoL 1,000 MG/100 ML VIAL IV SCH ×6 (00:39→22:33)
[2020-11-06] MEDS: MEROPENEM 500 MG in SYRINGE 0 ML IV SCH ×2 (01:24→07:41)
[2020-11-06 05:19] LABS: iSTAT Arterial Blood Gas HCO3 42 meg/L (19-24); iSTAT Arterial Blood Gas pCO2 63 mmHg (35-46); iSTAT Arterial Blood Gas pH 7.43 (7.35-7.45); iSTAT Arterial Blood Gas pO2 58 mmHg (80-95); iSTAT Carbon Dioxide > 40 mmol/L (24-31); iSTAT Site Art Line
[2020-11-06] MEDS: LEVOTHYROXINE SODIUM 75 MCG TABLET PO SCH (05:44)
[2020-11-06] MEDS: METOCLOPRAMIDE HCL 5 MG TABLET PO SCH (05:45)
[2020-11-06 06:27] LABS: Basophils # (auto) 0.04 K/uL (0-0.2); Basophils % (auto) 0.3 %; Eosinophils # (auto) 0.37 K/uL (0-0.5); Eosinophils % (auto) 2.7 %; Hematocrit (blood only) 34.2 % (37-47); Hemoglobin 10.7 g/dL (12.0-16.0); Immature Granulocytes # (auto) 0.61 K/uL (0.00-0.02); Immature Granulocytes % (auto) 4.4 %; Lymphocytes # (auto) 0.55 K/uL (1.2-3.4); Mean Corpuscular Hemoglobin 31.7 pg (25-34); Mean Corpuscular Hgb Conc 31.3 g/dL (32-36); Mean Corpuscular Volume 101.2 fL (80-100); Mean Platelet Volume 9.8 fL (7.4-10.4); Monocytes # (auto) 1.07 K/uL (0.11-0.59); Monocytes % (auto) 7.7 %; Neutrophils # (auto) 11.23 K/uL (1.4-6.5); Neutrophils % (auto) 80.9 %; Nucleated RBC # (auto) 0.04 K/uL (0-0); Nucleated RBC % (auto) 0.3 %; Platelet Count 239 K/uL (130-400); RDW Standard Deviation 54.2 fL (36.4-46.3); Red Blood Count 3.38 M/uL (4.2-5.4); White Blood Count 13.87 K/uL (4.8-10.8)
[2020-11-06] MEDS: fentaNYL DRIP 1,250 MCG/250 ML BAG IV SCH ×4 (06:33→23:50)
[2020-11-06 07:05] LABS: BUN Creatinine Ratio 83.8 (10-20); Calcium 8.9 mg/dl (8.5-10.1); Creatinine Clr Calc Pharmacy 206.8 ml/min; Est GFR (African American) 134.9; Est GFR (Non-African American) 116.4; Magnesium 2.1 mg/dl (1.8-2.4); Potassium 4.4 mmol/L (3.5-5.1)
[2020-11-06 07:11] LABS: Albumin Globulin Ratio 0.4 (0.9-2); Bilirubin,Total 0.3 mg/dl (0.2-1); Globulin 4.5 gm/dl (2.5-4.0); Phosphorus 2.9 mg/dl (2.5-4.9); Total Protein 6.5 gm/dl (6.4-8.2)
[2020-11-06] MEDS: ICU ELECTROLYTE REPLACEMENT PROTOCOL SCH ×2 (07:27→17:37)
[2020-11-06] MEDS: FAMOTIDINE 20 MG in SYRINGE 3 ML IV SCH ×2 (07:41→20:21)
[2020-11-06] MEDS: DEXAMETHASONE SOD PHOSPHATE 20 MG in DEXTROSE 5% 25 ML IV SCH (07:42)
[2020-11-06] MEDS: LACTULOSE SYRUP 20 GM/30 ML UDC PO SCH (07:42)
[2020-11-06] MEDS: ENOXAPARIN INJ 40 MG/0.4 ML SYR SQ SCH ×2 (07:43→19:56)
[2020-11-06] MEDS: FUROSEMIDE 40 MG in SYRINGE 0 ML IV SCH (08:02)
[2020-11-06] MEDS: hydrALAZINE HCL 25 MG TAB PO SCH (08:02)
--- NOTE | 2020-11-06 08:55 | Critical Care Progress Note ---
Date of Service November 06, 2020 Assessment & Plan (1) 2019 novel coronavirus–infected pneumonia (NCIP)#8211;infected pneumonia (NCIP): Impression: 69-year-old female with severe acute hypoxemic respiratory failure intubated due to novel coronavirus with ARDS. 24-hour events: She is status post tracheostomy placement yesterday. No acute issues overnight. PLAN: Neuro: We are weaning her propofol and fentanyl. I have discontinued her Versed boluses as needed. If agitation continues to be an issue, we can consider starting her on Seroquel twice daily. I am discontinuing her Precedex. Resp: ARDS secondary to coronavirus infection. The patient is currently day #11 mechanical ventilation with diffuse pulmonary infiltrates. Continue 20 mg Decadron for total 5 days and then 10 mg of Decadron for 5 days for possible fibroproliferative phase of ARDS. She is status post tracheostomy. No issues at this time. She has high FiO2 requirements. She is on a lung protective ventilation strategy. CV: She is currently hemodynamically stable and in a normal rhythm. She was previously in atrial fibrillation and SVT. She had been on full dose anticoagulation previously and this may need to be resumed if the patient has persistent episodes of atrial arrhythmia. ID: She is growing pansensitive Klebsiella from her sputum culture. Urine cultures were growing group C strep from 10/15/2020 which were treated. I will switch her to ceftriaxone from meropenem. She did complete a course of 7 days of antibiotics. GI/Nutrition: NG tube is in place. Continue tube feeds. She will need a PEG tube placed later during the hospitalization. Continue bowel regimen while on fentanyl. I have added MiraLAX as needed. Heme: Continue DVT prophylaxis with Lovenox. She is mildly anemic with no evidence of acute blood loss and no indication for transfusion. Endocrine: Glycemic control per protocol. Continue Synthroid Vascular access: Left subclavian placed 10/27 arterial line placed 10/27 Code Status: Full Disposition: ICU at this time and she will likely need LTAC placement in the near future. CRITICAL CARE TIME - I have personally spent 43 minutes of critical care time in the direct management of this patient. This is a life/limb threatening event. This includes time spent evaluating patient, direct bedside care, chart review, placing orders, interpretation of diagnostic studies, discussion with consultants, patient, and family members, as well as other required patient management activities. This time is exclusive of all separately billable procedures, and teaching time and separate from and in addition to any other critical care service time. Admission and Anticipated Discharge Date Admission Date: October 15, 2020 Subjective Patient is heavily sedated with fentanyl and propofol running at 125 mcg and 50 mg respectively. No issues overnight. Tracheostomy site appears clear, dry and intact. She is requiring an FiO2 of 80%. No significant issues overnight per nursing. Mean arterial pressures have been running in the mid 50s off of the arterial line and in the 70s off of the noninvasive blood pressure cuff. Review of Systems Review of Systems: Unobtainable due to endotracheal tube Physical Exam Constitutional: Mechanically ventilated and sedated. Nonresponsive to commands. Eyes: PERRL, conjunctivae normal, anicteric sclerae ENMT: external ear and nose normal, oropharynx normal Neck: Tracheostomy in place. Clean dry and intact. Respiratory: normal respiratory effort and + tachypneic Cardiovascular: RRR, no murmur, no edema Gastrointestinal (Abdomen): normal bowel sounds, soft, nontender, no hepatosplenomegaly Musculoskeletal: no cyanosis or clubbing, extremities motor strength 5/5 Skin: no rashes, warm and dry Neurologic: PERRL, EOMI, accommodation nl, no face palsy, no dysarthria Psychiatric: A+Ox3, euthymic affect Results & Data Results & Data ([facility]) Vital Signs (Past 12 Hours) Vital Signs Temp Pulse Resp BP Pulse Ox 11/06/20 07:54 69 22 95 11/06/20 06:35 99.1 F 102 H 153/82 H 95 11/06/20 06:00 99.5 F 84 94 11/06/20 05:09 97 H 31 H 90 11/06/20 05:00 99.3 F 100 H 153/90 H 90 11/06/20 04:11 99.0 F 119 H 161/99 H 92 11/06/20 04:00 99.0 F 123 H 94/51 L 92 11/06/20 03:00 99.1 F 69 160/79 H 93 11/06/20 02:17 81 24 97 11/06/20 02:02 98.8 F 101 H 96 11/06/20 02:01 99.0 F 60 128/60 97 11/06/20 02:00 98.8 F 81 97 11/06/20 01:00 99.1 F 88 94/42 L 97 11/06/20 00:01 99.3 F 81 101/40 L 96 11/06/20 00:00 99.1 F 84 11/05/20 23:11 99 H 29 H 94 11/05/20 23:02 99.3 F 104 H 94 11/05/20 23:01 99.1 F 99 H 155/92 H 95 11/05/20 23:00 99.3 F 99 H 95 11/05/20 22:00 99.0 F 86 129/69 95 11/05/20 21:00 98.8 F 81 123/46 L 97 I reviewed the vital signs, labs and imaging Coding Level of Care Code Critical Care 1st 30-74 mins Diagnoses 2019 novel coronavirus–infected pneumonia (NCIP)#8211;infected pneumonia (NCIP) U07.1; J12.89 Time Spent (min) 43
[2020-11-06] MEDS ORDERED: cefTRIAXone SODIUM 1,000 MG in DEXTROSE 5% 50 ML IV SCH (09:00)
[2020-11-06] MEDS ORDERED: POLYETHYLENE (MIRALAX) 17 GM PACK PO PRN (09:01)
[2020-11-06] MEDS: POLYETHYLENE (MIRALAX) 17 GM PACK PO PRN (09:34)
[2020-11-06] MEDS: cefTRIAXone SODIUM 2,000 MG in DEXTROSE 5% 50 ML IV SCH (10:03)
[2020-11-06] MEDS ORDERED: STAT IV Infusion **Titration per Protocol STA (10:42)
--- NOTE | 2020-11-06 10:52 | Electrocardiogram Report ---
Test Reason : Blood Pressure : / mmHG Vent. Rate : 089 BPM Atrial Rate : 089 BPM P-R Int : 154 ms QRS Dur : 082 ms QT Int : 336 ms P-R-T Axes : 027 038 -03 degrees QTc Int : 408 ms Poor data quality, interpretation may be adversely affected Sinus rhythm with Premature atrial complexes Otherwise normal ECG When compared with ECG of 02-NOV-2020 02:07, Premature atrial complexes are now Present NE interval has increased Vent. rate has increased BY 38 BPM Confirmed by Jono Blankenship ([id number]) on 11/06/2020 10:51:22 AM Referred By: REFERRED SELF Confirmed By:Valdez Blankenship
[2020-11-06] MEDS: MULTI VIT W/MINERALS LIQUID 15 ML UDP PO SCH (12:07)
[2020-11-06] MEDS ORDERED: LABETALOL HCL IV 5 MG/ML 20ML IV STA (12:41)
[2020-11-06] MEDS ORDERED: LABETALOL HCL IV 5 MG/ML 20ML IV ONE (12:42)
--- NOTE | 2020-11-06 12:47 | Communication Note ---
Date of Service: November 06, 2020 I came by the bedside this afternoon to follow-up on the patient noted that the patient's systolic blood pressure was in the 200s range. We went up on the fentanyl to 150 mcg and gave a 50 mcg bolus. We have also gone up on the propofol back to 30 mg. She appears to have some autonomic dysfunction possibly related to Covid infection. Earlier today, her systolic blood pressures were in the 70s and 80s. Some of this may be sedation and pain mediated. I have ordered an esmolol drip which is available if her heart rates go above 110. She has been in intermittent atrial fibrillation. I have ordered 5 mg of labetalol for blood pressure at this time. She is very critically ill. Her prognosis is extremely poor. She has a high likelihood of undergoing a cardiac arrest. CRITICAL CARE TIME - I have personally spent 17 minutes of critical care time in the direct management of this patient. This is a life/limb threatening event. This includes time spent evaluating patient, direct bedside care, chart review, placing orders, interpretation of diagnostic studies, discussion with consultants, patient, and family members, as well as other required patient management activities. This time is exclusive of all separately billable procedures, and teaching time and separate from and in addition to any other critical care service time. Coding Level of Care Code Critical Care 1st 30-74 mins
[2020-11-06] MEDS: ESMOLOL / NSS 2,500 MG/250 ML BAG IV SCH ×2 (13:28→20:02)
[2020-11-06] MEDS: PEPTAMEN INTENSE VHP 1.0 CAL 1,000 ML BAG OG SCH (15:30)
[2020-11-06] MEDS: ASPIRIN 81 MG CHEW PO SCH (20:21)
--- NOTE | 2020-11-06 23:32 | Hospitalist Progress Note ---
Date of Service November 06, 2020 Assessment & Plan (1) Acute respiratory failure with hypoxia: Intubated on 10/27, turned prone. ARDSnet settings with high PEEP and low FiO2 no real improvement in lung compliance when switching from supine to prone. She and her family agreed to intubation and [facility] ventilation. Intubated on 10/27. -> She would like her niece Dipak to make decisions for her while on the ventilator. Worsening ventilator settings. [place] breathing at times per RT. tracheostomy on 11/05 tolerated well, try to wean from ventilator (2) Pneumonia due to COVID-19 virus: stopped Decadron 10/29, it had been 14 days completed course of Remdesivir, LD 10/19 convalescent plasma on 10/16 Prognosis remains poor, try to wean oxygen (3) Atrial fibrillation: Patient developed atrial fibrillation in the face of her hypoxic respiratory distress on 10/22. cardiology recommended amiodarone therapy without bolus and 1 dose of digoxin 0.5. Patient reportedly broke and became slightly bradycardic at times in a junctional rhythm continue full anticoagulation for now, Lovenox 100 q12 not currently on any rate or rhythm control medications continue to monitor on tele now with runs of Afib with RVR on 11/06, resolved (4) Sepsis: Source - COVID-19 +/- possible bacterial PNA completed course of Levaquin sepsis resolved (5) Prediabetes: HbA1C 5.9 in May. Glucose 129 on admission. BSG ACHS and will initially use correction factor only, Novolog in case dexamethasone increases her glucose levels so far BSG have been acceptable - 150-180. (6) Hyperlipidemia: Continue her usual rosuvastatin dosing. (7) GERD (gastroesophageal reflux disease): Continue her usual pantoprazole 40mg PO daily (8) Esophageal dysmotility: Aspiration precautions. (9) Hypothyroidism: TSH 1.31 in Aug. Continue levothyroxine 75 mcg PO daily (10) Anxiety: now on sedation (11) DVT prophylaxis: Lovenox therapeutic Lovenox currently Admission and Anticipated Discharge Date Admission Date: October 15, 2020 Subjective patient unstable in the morning recurrent afib with RVR, hypotensive at times requiring Trendelenberg eventually stabilized with sedation remains on ventilator with tracheostomy Review of Systems Review of Systems: Unobtainable due to cognitive status (sedated) Physical Exam Constitutional: well developed, well nourished and + mechanically ventilated (supine, tracheostomy) Neck: trachea midline, no thyromegaly + tracheostomy present Respiratory: symmetric chest movement (ventilated) Auscultation: lungs clear to auscultation bilaterally Cardiovascular: Rate/Rhythm: + tachycardic and + irregularly irregular Heart Sounds: normal S1 and normal S2 Extremities: normal capillary refill; no edema Gastrointestinal (Abdomen): normal bowel sounds, soft, nontender, no hepatosplenomegaly Musculoskeletal: no cyanosis or clubbing, extremities motor strength 5/5 Skin: no rashes, warm and dry Neurologic: patellar DTR's 2+ bilat, sensation intact and PERRL, EOMI, accommodation nl, no face palsy, no dysarthria + obtunded; no focal motor deficits Psychiatric: A+Ox3, euthymic affect Orientation: + not alert Affect: + anxious affect and + tearful affect Results & Data Results & Data ([facility]) Vital Signs (Past 12 Hours) Vital Signs Temp Pulse Resp BP Pulse Ox 11/06/20 23:00 37.6 C H 78 160/82 H 91 11/06/20 22:40 88 28 H 91 11/06/20 22:00 37.3 C 80 150/107 H 92 11/06/20 21:01 37.3 C 88 201/114 H 92 11/06/20 21:00 37.3 C 79 91 11/06/20 20:05 144 H 22 96 11/06/20 20:00 37.3 C 143 H 151/112 H 95 11/06/20 19:03 37.3 C 69 147/54 H 95 11/06/20 19:00 37.3 C 155 H 85/53 L 96 11/06/20 18:37 23 11/06/20 18:01 37.3 C 81 122/51 L 94 11/06/20 18:00 37.3 C 93 H 11/06/20 17:00 37.3 C 98 H 180/104 H 93 11/06/20 16:45 37.2 C 87 169/50 H 92 11/06/20 16:05 37.0 C 11/06/20 16:01 37.2 C 79 98 11/06/20 16:00 37.2 C 94 H 96 11/06/20 15:53 30 H 11/06/20 15:00 37.3 C 65 177/98 H 93 11/06/20 14:05 37.3 C 119 H 94 11/06/20 14:04 37.3 C 117 H 147/81 H 94 11/06/20 14:00 37.3 C 115 H 184/104 H 94 11/06/20 13:00 37.3 C 113 H 147/86 H 94 11/06/20 12:24 37.2 C 94 H 192/85 H 93 11/06/20 12:11 37.2 C 98 H 201/108 H 93 11/06/20 12:01 37.2 C 82 211/81 H 94 11/06/20 12:00 37.2 C 96 H 92 11/06/20 11:47 83 30 H 94 Laboratory Results Laboratory Results - last 24 hr 11/06/20 11/06/20 11/06/20 00:02 04:40 05:02 WBC RBC Hgb Hct MCV MCH MCHC RDW Std Deviation RDW Coeff of Mary Plt Count MPV Immature Gran % (Auto) Neut % (Auto) Lymph % (Auto) Saline % (Auto) Eos % (Auto) Baso % (Auto) Neut # (Auto) Lymph # (Auto) Saline # (Auto) Eos # (Auto) Baso # (Auto) Immature Gran # (Auto) Absolute Nucleated RBC Nucleated RBC % (auto) Sample Site POC pH POC pCO2 POC pO2 POC HCO3 POC Total CO2 POC Base Excess POC ABG O2 Sat Kishan Test O2 Delivery Device POC O2 Rate Minute Ventilation Tidal Volume PEEP Sodium 135 L Potassium 4.4 Chloride 91 L Carbon Dioxide 40 H Anion Gap 4.0 BUN 26 H Creatinine 0.31 L Est Cr Clr Drug Dosing 206.8 Est GFR ( Amer) 134.9 Est GFR (Non-Af Amer) 116.4 BUN/Creatinine Ratio 83.8 H Glucose 138 H POC Glucose 103 H 138 H Calcium 8.9 Phosphorus 2.9 Magnesium 2.1 Total Bilirubin 0.3 AST 27 ALT 37 Alkaline Phosphatase 142 H Total Protein 6.5 Albumin 2.0 L Globulin 4.5 H Albumin/Globulin Ratio 0.4 L Triglycerides 11/06/20 11/06/20 11/06/20 05:02 05:02 05:02 WBC 13.87 H RBC 3.38 L Hgb 10.7 L Hct 34.2 L MCV 101.2 H MCH 31.7 MCHC 31.3 L RDW Std Deviation 54.2 H RDW Coeff of Mary 15.0 H Plt Count 239 MPV 9.8 Immature Gran % (Auto) 4.4 Neut % (Auto) 80.9 Lymph % (Auto) 4.0 Saline % (Auto) 7.7 Eos % (Auto) 2.7 Baso % (Auto) 0.3 Neut # (Auto) 11.23 H Lymph # (Auto) 0.55 L Saline # (Auto) 1.07 H Eos # (Auto) 0.37 Baso # (Auto) 0.04 Immature Gran # (Auto) 0.61 H Absolute Nucleated RBC 0.04 H Nucleated RBC % (auto) 0.3 Sample Site Art Line POC pH 7.43 POC pCO2 63 H POC pO2 58 L POC HCO3 42 H POC Total CO2 > 40 H* POC Base Excess 17.0 H POC ABG O2 Sat 89.0 L Kishan Test NA O2 Delivery Device Ventilator POC O2 Rate 20 Minute Ventilation 12.8 Tidal Volume 360 PEEP 14 Sodium Potassium Chloride Carbon Dioxide Anion Gap BUN Creatinine Est Cr Clr Drug Dosing Est GFR ( Amer) Est GFR (Non-Af Amer) BUN/Creatinine Ratio Glucose POC Glucose Calcium Phosphorus Magnesium Total Bilirubin AST ALT Alkaline Phosphatase Total Protein Albumin Globulin Albumin/Globulin Ratio Triglycerides 237 H 11/06/20 11/06/20 11/06/20 12:00 16:44 20:07 WBC RBC Hgb Hct MCV MCH MCHC RDW Std Deviation RDW Coeff of Mary Plt Count MPV Immature Gran % (Auto) Neut % (Auto) Lymph % (Auto) Saline % (Auto) Eos % (Auto) Baso % (Auto) Neut # (Auto) Lymph # (Auto) Saline # (Auto) Eos # (Auto) Baso # (Auto) Immature Gran # (Auto) Absolute Nucleated RBC Nucleated RBC % (auto) Sample Site POC pH POC pCO2 POC pO2 POC HCO3 POC Total CO2 POC Base Excess POC ABG O2 Sat Kishan Test O2 Delivery Device POC O2 Rate Minute Ventilation Tidal Volume PEEP Sodium Potassium Chloride Carbon Dioxide Anion Gap BUN Creatinine Est Cr Clr Drug Dosing Est GFR ( Amer) Est GFR (Non-Af Amer) BUN/Creatinine Ratio Glucose POC Glucose 144 H 148 H 120 H Calcium Phosphorus Magnesium Total Bilirubin AST ALT Alkaline Phosphatase Total Protein Albumin Globulin Albumin/Globulin Ratio Triglycerides Medications Administered Current Inpatient Medications Acetaminophen (Acetaminophen 325 Mg Tab) 650 mg PO Q4H PRN PRN Reason: Pain or Fever Stop: 11/14/20 20:32 Last Admin: 11/03/20 16:54 Dose: 650 mg Documented by: Al Hydrox/Mg Hydrox/Simethicone (Aluminum/Magnesium Susp 30 Ml Udc) 15 ml PO Q 4H PRN PRN Reason: Dyspepsia Stop: 11/14/20 20:32 Aspirin (Aspirin 81 Mg Chew) 81 mg PO HS HARISH Stop: 11/27/20 20:59 Last Admin: 11/06/20 20:21 Dose: 81 mg Documented by: Dextrose (Dextrose 50% 50 Ml Syringe) 25 - 50 ml IV UD PRN; Protocol PRN Reason: Hypoglycemia Protocol Stop: 11/14/20 20:32 Enoxaparin Sodium (Enoxaparin Inj 40 Mg/0.4 Ml Syr) 40 mg SQ Q12H HARISH Stop: 12/04/20 06:59 Last Admin: 11/06/20 19:56 Dose: 40 mg Documented by: Fentanyl Citrate (Fentanyl Bolus From Bag) 50 mcg IV Q60M PRN PRN Reason: Pain or Agitation Stop: 11/10/20 12:36 Last Admin: 11/05/20 02:47 Dose: 50 mcg Documented by: Glucagon (Glucagon For Inj 1 Mg Vial) 1 mg SQ UD PRN; Protocol PRN Reason: Hypoglycemia Protocol Stop: 11/14/20 20:32 Glucose (Glucose 10 Tabs/Tube) 4 - 8 tabs PO UD PRN; Protocol PRN Reason: Hypoglycemia Protocol Stop: 11/14/20 20:32 Glucose (Glucose 40% Gel 15 Gm Tube) 15 - 30 gm PO UD PRN; Protocol PRN Reason: Hypoglycemia Protocol Stop: 11/14/20 20:32 Heparin Sodium (Beef Lung) (Heparin 10 Unit/Ml 5 Ml Flush) 5 ml FLUSH PRN PRN PRN Reason: Flush Stop: 11/27/20 22:57 Fentanyl Citrate (Fentanyl Drip) 1,250 mcg in 250 mls @ 30 mls/hr IV .Q8H20M HARISH; Protocol Stop: 11/10/20 12:44 Last Titration: 11/06/20 18:32 Dose: 150 mcg/hr, 30 mls/hr Documented by: Furosemide 40 mg/ Syringe 4 mls @ 4 mls/min IV DAILY HARISH Stop: 12/04/20 08:59 Last Admin: 11/06/20 08:02 Dose: 4 mls/min Documented by: Dexamethasone Sodium Phosphate (20 mg/ Dextrose) 30 mls @ 0.833 mls/min IV DAILY HARISH Stop: 11/07/20 09:35 Last Infusion: 11/06/20 09:10 Dose: Infused Documented by: Famotidine 20 mg/ Syringe 5 mls @ 2.5 mls/min IV Q12 HARISH Stop: 12/04/20 10:29 Last Admin: 11/06/20 20:21 Dose: 2.5 mls/min Documented by: Propofol (Diprivan) 1,000 mg in 100 mls @ 19.08 mls/hr IV .Q5H15M HARISH; Protocol Stop: 11/07/20 20:59 Last Titration: 11/06/20 23:18 Dose: 30 mcg/kg/min, 19.1 mls/hr Documented by: Ceftriaxone Sodium 2,000 mg/ (Dextrose) 70 mls @ 140 mls/hr IV Q24H HARISH Stop: 11/13/20 09:59 Last Infusion: 11/06/20 10:59 Dose: Infused Documented by: Esmolol HCl (Brevibloc) 2,500 mg in 250 mls @ 31.95 mls/hr IV .Q7H50M HARISH; Protocol Stop: 12/06/20 10:44 Last Admin: 11/06/20 20:02 Dose: 50 mcg/kg/min, 32 mls/hr Documented by: Insulin Aspart (Insulin Aspart 100 Units/Ml 3 Ml Pen) 0 units SC Q4 [facility]; Protocol Stop: 11/27/20 15:59 Last Admin: 11/06/20 20:16 Dose: 2 units Documented by: Lactulose (Lactulose Syrup 20 Gm/30 Ml Udc) 20 gm PO DAILY HARISH Stop: 12/02/20 11:59 Last Admin: 11/06/20 07:42 Dose: 20 gm Documented by: Levothyroxine Sodium (Levothyroxine Sodium 75 Mcg Tablet) 75 mcg PO DAILYBB [facility] Stop: 11/15/20 06:29 Last Admin: 11/06/20 05:44 Dose: 75 mcg Documented by: Miscellaneous (Carbohydrates For Hypoglycemia ) 15 - 30 gm PO UD PRN PRN Reason: Hypoglycemia Protocol Stop: 11/14/20 20:32 Miscellaneous (Icu Electrolyte Replacement Protocol) 1 ea N/A BID@06,18 HARISH; Protocol Stop: 11/10/20 17:59 Last Admin: 11/06/20 17:37 Dose: Not Given Documented by: Multi-Ingredient Cream (Artificial Tears Op Oint 3.5 Gm Tube) 1 appln OP Q4 HARISH Stop: 11/26/20 16:06 Last Admin: 11/06/20 19:57 Dose: 1 appln Documented by: Multivitamins/Minerals (Multi Vit W/Minerals Liquid 15 Ml Udp) 15 ml PO DAILY@1200 HARISH Stop: 11/28/20 11:59 Last Admin: 11/06/20 12:07 Dose: 15 ml Documented by: Nutritional Formula (Peptamen Intense Vhp 1.0 Juan Daniel 1,000 Ml Bag) 1,000 ml OG DAILY@1600 HARISH; Protocol Stop: 12/03/20 15:59 Last Admin: 11/06/20 15:30 Dose: 1,000 ml Documented by: Polyethylene Glycol (Polyethylene (Miralax) 17 Gm Pack) 17 gm PO DAILY PRN PRN Reason: Constipation Stop: 11/14/20 20:32 Last Admin: 11/06/20 09:34 Dose: 17 gm Documented by: Polyethylene Glycol (Polyethylene (Miralax) 17 Gm Pack) 17 gm PO DAILY PRN PRN Reason: Constipation Stop: 12/06/20 09:00 Propofol (Propofol Bolus From Bag) 20 mg IV Q5M PRN PRN Reason: Sedation Stop: 11/07/20 20:53 Last Admin: 11/05/20 02:59 Dose: 20 mg Documented by: Rosuvastatin Calcium (Rosuvastatin Calcium 5 Mg Tab) 5 mg PO MoWeFr@0900 [facility] Stop: 11/17/20 08:59 Last Admin: 11/05/20 07:15 Dose: 5 mg Documented by: PG Care Time/CCT Total # of Minutes Spent Total Time Spent with Patient: Total time spent is greater than 50% in coordination of care (as documented) at patient's floor/unit and/or counseling patient: Coding Level of Care Code 56689 Subseq Hosp Care Lvl 2 Diagnoses Acute respiratory failure with hypoxia J96.01 Pneumonia due to COVID-19 virus U07.1; J12.89 Atrial fibrillation I48.91 Sepsis A41.9 Sepsis acute organ dysfunction status: unspecified Sepsis type: sepsis due to unspecified organism Prediabetes R73.03 Hyperlipidemia E78.5 GERD (gastroesophageal reflux disease) K21.9 Esophageal dysmotility K22.4 Hypothyroidism E03.9 Anxiety F41.9 DVT prophylaxis Z29.9 (1) Sepsis Sepsis acute organ dysfunction status: unspecified Sepsis type: sepsis due to unspecified organism Qualified Code(s): A41.9 - Sepsis, unspecified organism
[2020-11-07] MEDS: ARTIFICIAL TEARS OP OINT 3.5 GM TUBE OP SCH ×6 (00:15→20:24)
[2020-11-07] MEDS: INSULIN ASPART 100 UNITS/ML 3 ML PEN SC SCH ×6 (00:15→20:26)
[2020-11-07] MEDS: propofoL 1,000 MG/100 ML VIAL IV SCH ×3 (02:55→17:11)
[2020-11-07] MEDS: ESMOLOL / NSS 2,500 MG/250 ML BAG IV SCH ×2 (05:07→13:54)
[2020-11-07 05:37] LABS: iSTAT Allen Test Pass; iSTAT Art Bld Gas pCO2 Correct 61 mmHg (35-46); iSTAT Art Bld Gas pH Corrected 7.488 (7.35-7.45); iSTAT Arterial Blood Gas HCO3 47 meg/L (19-24); iSTAT Arterial Blood Gas pCO2 61 mmHg (35-46); iSTAT Arterial Blood Gas pH 7.49 (7.35-7.45); iSTAT Arterial Blood Gas pO2 50 mmHg (80-95); iSTAT Arterial Blood Gas pO2 C 51; iSTAT Carbon Dioxide > 40 mmol/L (24-31); iSTAT FiO2 60 %; iSTAT Hematocrit 32 % (37-47); iSTAT Hemoglobin 10.9 g/dl (12.0-16.0); iSTAT Site Art Line; iSTAT Sodium 132 mmol/L (135-144)
[2020-11-07] MEDS: LEVOTHYROXINE SODIUM 75 MCG TABLET PO SCH (07:01)
[2020-11-07] MEDS: ENOXAPARIN INJ 40 MG/0.4 ML SYR SQ SCH ×2 (07:01→17:45)
[2020-11-07 07:10] LABS: Hematocrit (blood only) 32.8 % (37-47); Hemoglobin 10.3 g/dL (12.0-16.0); Mean Corpuscular Hemoglobin 31.6 pg (25-34); Mean Corpuscular Hgb Conc 31.4 g/dL (32-36); Mean Corpuscular Volume 100.6 fL (80-100); Mean Platelet Volume 9.7 fL (7.4-10.4); Nucleated RBC # (auto) 0.04 K/uL (0-0); Nucleated RBC % (auto) 0.3 %; Platelet Count 226 K/uL (130-400); RDW Coefficient of Variation 14.5 % (11.5-14.5); RDW Standard Deviation 52.1 fL (36.4-46.3); Red Blood Count 3.26 M/uL (4.2-5.4); White Blood Count 14.37 K/uL (4.8-10.8)
[2020-11-07] MEDS: ICU ELECTROLYTE REPLACEMENT PROTOCOL SCH ×2 (07:44→17:02)
[2020-11-07] MEDS: LACTULOSE SYRUP 20 GM/30 ML UDC PO SCH (07:47)
[2020-11-07] MEDS: FUROSEMIDE 40 MG in SYRINGE 0 ML IV SCH (07:51)
[2020-11-07] MEDS: FAMOTIDINE 20 MG in SYRINGE 3 ML IV SCH ×2 (07:53→20:25)
[2020-11-07 07:54] LABS: BUN Creatinine Ratio 100.4 (10-20); Calcium 8.9 mg/dl (8.5-10.1); Creatinine Clr Calc Pharmacy 244.3 ml/min; Est GFR (African American) 142.9; Est GFR (Non-African American) 123.3; Magnesium 1.9 mg/dl (1.8-2.4); Phosphorus 2.4 mg/dl (2.5-4.9); Potassium 4.4 mmol/L (3.5-5.1)
[2020-11-07 07:56] LABS: ALC (manual) 0.26 K/uL (1.2-3.4); ANC (manual) 12.83 K/uL (1.4-6.5); Eosinophils # (manual) 0.63 K/uL (0-0.5); Eosinophils % (manual) 4.4 %; Lymphocytes # (manual) 0.26 K/uL (1.2-3.4); Lymphocytes % (manual) 1.8 %; Monocytes # (manual) 0.26 K/uL (0.11-0.59); Monocytes % (manual) 1.8 %; Myelocytes # (manual) 0.39 K/uL (0-0); Myelocytes % (manual) 2.7 %; Neutrophils # (manual) 12.83 K/uL (1.4-6.5); Neutrophils % (manual) 89.3 %
[2020-11-07] MEDS: fentaNYL DRIP 1,250 MCG/250 ML BAG IV SCH ×2 (07:56→17:10)
--- NOTE | 2020-11-07 08:05 | XRay Report ---
XR chest 1V portable HISTORY: 69 years-old Female resp failure acute respiratory failure COMPARISON: Chest radiograph 11/05/2020 TECHNIQUE: Portable AP view of the chest FINDINGS: Cardiomediastinal and hilar silhouettes are unchanged. Tracheostomy cannula overlies the midline supe rior to the clavicular heads. A feeding tube is present which courses below the diaphragm, distal tip outside the [id number]. Unchanged positioning of the left subclavian central venous catheter. No pneumothorax. Extensive bilateral airspace opacities are redemonstrated and appear generally stable f rom comparison with equivocal improved aeration of the right midlung. Degenerative changes of the mani ulders and spine. IMPRESSION: 1. Lines and tubes as above. 2. Unchanged extensive bilateral airspace opacities. ACT 112: Negative or not required by law. The above report was generated using voice recognition software. It may contain grammatical, syntax o r spelling errors. Electronically signed by: Brenton Avilez M.D. 11/07/2020 8:03 AM
[2020-11-07] MEDS: DEXAMETHASONE SOD PHOSPHATE 20 MG in DEXTROSE 5% 25 ML IV SCH (09:05)
[2020-11-07] MEDS: PEPTAMEN INTENSE VHP 1.0 CAL 1,000 ML BAG OG SCH (10:19)
[2020-11-07] MEDS: cefTRIAXone SODIUM 2,000 MG in DEXTROSE 5% 50 ML IV SCH (10:19)
--- NOTE | 2020-11-07 10:43 | Critical Care Progress Note ---
Date of Service November 07, 2020 Assessment & Plan (1) 2019 novel coronavirus–infected pneumonia (NCIP)#8211;infected pneumonia (NCIP): Impression: 69-year-old female with severe acute hypoxemic respiratory failure intubated due to novel coronavirus with ARDS now status post tracheostomy. PLAN: Neuro: Will try to wean fentanyl and propofol off. Will start oxycodone 5 mg q4h prn. I have discontinued her Versed boluses as needed. If agitation continues to be an issue, we can consider starting her on Seroquel twice daily. Resp: ARDS secondary to coronavirus infection. The patient is currently day #12 of mechanical ventilation with diffuse pulmonary infiltrates. Continue 20 mg Decadron for total 5 days and then 10 mg of Decadron for 5 days for possible fibroproliferative phase of ARDS. She is status post tracheostomy. She has high FiO2 requirements. She is on a lung protective ventilation strategy. Wean vent as able. CV: She was previously in atrial fibrillation and SVT. She had been on full dose anticoagulation previously and this may need to be resumed if the patient has persistent episodes of atrial arrhythmia. She is currently on a low dose of esmolol due to ongoing tachyarrhythmia. We will start low-dose phenylephrine to maintain mean arterial pressures above 65. As we wean off sedation, hopefully hopefully her pressures will come up. ID: She is growing pansensitive Klebsiella from her sputum culture. Urine cultures were growing group C strep from 10/15/2020 which were treated. Continue rocephin. Previously on merrem. Will have her complete a seven day course for klebseilla. GI/Nutrition: NG tube is in place. Continue tube feeds. She will need a PEG tube placed later during the hospitalization. Continue bowel regimen while on fentanyl. I have added MiraLAX as needed. Heme: Continue DVT prophylaxis with Lovenox. She is mildly anemic with no evidence of acute blood loss and no indication for transfusion. Endocrine: Glycemic control per protocol. Continue Synthroid Vascular access: Left subclavian placed 10/27 arterial line placed 10/27 Code Status: Full Disposition: ICU at this time and she will likely need LTAC placement in the near future. CRITICAL CARE TIME - I have personally spent 37 minutes of critical care time in the direct management of this patient. This is a life/limb threatening event. This includes time spent evaluating patient, direct bedside care, chart review, placing orders, interpretation of diagnostic studies, discussion with consultants, patient, and family members, as well as other required patient management activities. This time is exclusive of all separately billable procedures, and teaching time and separate from and in addition to any other critical care service time. Admission and Anticipated Discharge Date Admission Date: October 15, 2020 Subjective Patient continues to require high amounts of sedation and having moments of ta jameel-nazanin events. Currently on a low dose of esmolol, but MAPs are in the 40s. Review of Systems Review of Systems: Unobtainable due to endotracheal tube and Unobtainable due to reduced consciousness Physical Exam Constitutional: Mechanically ventilated and sedated. Nonresponsive to commands. Eyes: PERRL, conjunctivae normal, anicteric sclerae ENMT: external ear and nose normal, oropharynx normal Neck: Tracheostomy in place. Clean dry and intact. Respiratory: normal respiratory effort and + tachypneic Cardiovascular: RRR, no murmur, no edema Gastrointestinal (Abdomen): normal bowel sounds, soft, nontender, no hepatosplenomegaly Musculoskeletal: no cyanosis or clubbing, extremities motor strength 5/5 Skin: no rashes, warm and dry Neurologic: PERRL, EOMI, accommodation nl, no face palsy, no dysarthria Psychiatric: A+Ox3, euthymic affect Results & Data Results & Data ([facility]) Vital Signs (Past 12 Hours) Vital Signs Temp Pulse Resp BP Pulse Ox 11/07/20 08:00 69 103/46 L 11/07/20 07:40 99.5 F 69 103/46 L 90 11/07/20 07:31 66 20 91 11/07/20 07:00 99.7 F H 73 137/65 93 11/07/20 06:00 99.5 F 83 145/89 H 92 11/07/20 05:23 88 20 92 11/07/20 05:00 99.0 F 93 H 200/115 H 90 11/07/20 04:15 81 29 H 90 11/07/20 04:01 99.0 F 83 192/81 H 92 11/07/20 04:00 99.0 F 73 89 L 11/07/20 03:00 99.3 F 68 113/51 L 91 12/20/20 02:00 99.5 F 73 97/45 L 92 11/07/20 01:00 99.9 F H 74 118/65 90 11/07/20 00:00 99.7 F H 86 164/88 H 90 11/06/20 23:00 99.7 F H 78 160/82 H 91 11/06/20 22:40 88 28 H 91 I reviewed vital signs, labs and imaging. Coding Level of Care Code Critical Care 1st 30-74 mins Diagnoses 2019 novel coronavirus–infected pneumonia (NCIP)#8211;infected pneumonia (NCIP) U07.1; J12.89 Time Spent (min) 37
[2020-11-07] MEDS ORDERED: STAT IV Infusion **Titration per Protocol STA (10:50)
--- NOTE | 2020-11-07 13:06 | Electrocardiogram Report ---
Test Reason : Blood Pressure : / mmHG Vent. Rate : 103 BPM Atrial Rate : 103 BPM P-R Int : 158 ms QRS Dur : 082 ms QT Int : 338 ms P-R-T Axes : 029 034 013 degrees QTc Int : 442 ms Sinus tachycardia with Premature atrial complexes Otherwise normal ECG When compared with ECG of 06-NOV-2020 07:39, No significant change was found Confirmed by Jono Blankenship ([id number] on 11/07/2020 1:06:04 PM Referred By: REFERRED SELF Confirmed By:Valdez Blankenship
[2020-11-07] MEDS: MULTI VIT W/MINERALS LIQUID 15 ML UDP PO SCH (13:39)
[2020-11-07] MEDS ORDERED: POTASSIUM PHOS 3 MMOL/1 ML INFUSION IV STA (17:08)
[2020-11-07] MEDS: MAGNESIUM SULFATE / D5W 1 GM/100 ML BAG IV SCH ×2 (17:44→18:24)
[2020-11-07] MEDS ORDERED: POTASSIUM PHOSPHATE 15 MMOL in SODIUM CHLORIDE 0.9% 250 ML IV ONE (18:00)
[2020-11-07] MEDS: ASPIRIN 81 MG CHEW PO SCH (20:24)
--- NOTE | 2020-11-07 23:20 | Hospitalist Progress Note ---
Date of Service November 07, 2020 Assessment & Plan (1) Acute respiratory failure with hypoxia: Intubated on 10/27, turned prone. ARDSnet settings with high PEEP and low FiO2 no real improvement in lung compliance when switching from supine to prone. She and her family agreed to intubation and [facility] ventilation. Intubated on 10/27. tracheostomy on 11/05 still trying to wean from ventilator, difficult time with sedation/anxiety (2) Pneumonia due to COVID-19 virus: stopped Decadron 10/29, it had been 14 days completed course of Remdesivir, LD 10/19 convalescent plasma on 10/16 Prognosis remains poor, try to wean from ventilator looking into LTACH once more stable (3) Atrial fibrillation: Patient developed atrial fibrillation in the face of her hypoxic respiratory distress on 10/22. cardiology recommended amiodarone therapy without bolus and 1 dose of digoxin 0.5. Patient reportedly broke and became slightly bradycardic at times in a junctional rhythm continue full anticoagulation for now, Lovenox 100 q12 continue to monitor on tele, having afib with RVR BP very sensitive, possible autonomic dysfunction esmolol drip PRN ordered (4) Metabolic acidosis: initiate Diamox, follow HCO3 levels (5) Sepsis: Source - COVID-19 +/- possible bacterial PNA completed course of Levaquin sepsis resolved (6) Prediabetes: HbA1C 5.9 in May. Glucose 129 on admission. BSG ACHS and will initially use correction factor only, Novolog in case dexamethasone increases her glucose levels so far BSG have been acceptable - 150-180. (7) Hyperlipidemia: Continue her usual rosuvastatin dosing. (8) GERD (gastroesophageal reflux disease): Continue her usual pantoprazole 40mg PO daily (9) Esophageal dysmotility: Aspiration precautions. (10) Hypothyroidism: TSH 1.31 in Aug. Continue levothyroxine 75 mcg PO daily (11) Anxiety: now on sedation (12) DVT prophylaxis: Lovenox therapeutic Lovenox currently Admission and Anticipated Discharge Date Admission Date: October 15, 2020 Subjective patient with what appears to be autonomic dysfunction elevated BP and then hypotensive after treatment still agitated on ventilator Review of Systems Review of Systems: Unobtainable due to cognitive status Physical Exam Constitutional: well developed, well nourished and + mechanically ventilated (supine, tracheostomy) Neck: trachea midline, no thyromegaly + tracheostomy present Respiratory: symmetric chest movement (ventilated) Auscultation: lungs clear to auscultation bilaterally Cardiovascular: RRR, no murmur, no edema Gastrointestinal (Abdomen): normal bowel sounds, soft, nontender, no hepatosplenomegaly Musculoskeletal: no cyanosis or clubbing, extremities motor strength 5/5 Skin: no rashes, warm and dry Neurologic: + obtunded; no focal motor deficits Psychiatric: Orientation: + not alert Results & Data Results & Data ([facility]) Vital Signs (Past 12 Hours) Vital Signs Temp Pulse Resp BP Pulse Ox 11/07/20 19:25 93 H 26 H 91 11/07/20 16:12 68 22 90 11/07/20 16:00 68 67/25 L 11/07/20 13:30 37.5 C 83 91 11/07/20 13:00 37.5 C 83 184/85 H 90 11/07/20 12:30 37.3 C 81 90 11/07/20 12:01 37.2 C 76 184/104 H 91 11/07/20 12:00 37.2 C 69 103/46 L 11/07/20 11:30 37.0 C 75 92 Laboratory Results Laboratory Results - last 24 hr 11/07/20 11/07/20 11/07/20 00:05 04:01 05:23 WBC RBC Hgb POC Hgb 10.9 L Hct POC Hct 32 L MCV MCH MCHC RDW Std Deviation RDW Coeff of Mary Plt Count MPV Absolute Nucleated RBC Nucleated RBC % (auto) Neutrophils % (Manual) Lymphocytes % (Manual) Monocytes % (Manual) Eosinophils % (Manual) Myelocytes % (Man) Neutrophils # (Manual) Total Absolute Neuts Lymphocytes # (Manual) Total Abs Lymphocytes Monocytes # (Manual) Eosinophils # (Manual) Myelocytes # (Manual) Sample Site Art Line POC pH 7.49 H POC pCO2 61 H POC pO2 50 L POC HCO3 47 H POC Total CO2 > 40 H* POC Base Excess 23.0 H ABG pH (Temp Correct) 7.488 H ABG pCO2 (Temp Corrct 61 H POC ABG pO2 at Pt Temp 51 POC ABG O2 Sat 86.0 L Kishan Test Pass O2 Delivery Device Ventilator POC O2 Rate 20 POC FiO2 60 Tidal Volume 360 PEEP 14 POC Sodium 132 L Sodium POC Potassium 5.0 Potassium Chloride Carbon Dioxide Anion Gap BUN Creatinine Est Cr Clr Drug Dosing Est GFR ( Amer) Est GFR (Non-Af Amer) BUN/Creatinine Ratio Glucose POC Glucose 178 H 100 H Calcium Phosphorus Magnesium 11/07/20 11/07/20 11/07/20 06:26 06:26 07:41 WBC 14.37 H RBC 3.26 L Hgb 10.3 L POC Hgb Hct 32.8 L POC Hct MCV 100.6 H MCH 31.6 MCHC 31.4 L RDW Std Deviation 52.1 H RDW Coeff of Mary 14.5 Plt Count 226 MPV 9.7 Absolute Nucleated RBC 0.04 H Nucleated RBC % (auto) 0.3 Neutrophils % (Manual) 89.3 Lymphocytes % (Manual) 1.8 Monocytes % (Manual) 1.8 Eosinophils % (Manual) 4.4 Myelocytes % (Man) 2.7 Neutrophils # (Manual) 12.83 H Total Absolute Neuts 12.83 H Lymphocytes # (Manual) 0.26 L Total Abs Lymphocytes 0.26 L Monocytes # (Manual) 0.26 Eosinophils # (Manual) 0.63 H Myelocytes # (Manual) 0.39 H Sample Site POC pH POC pCO2 POC pO2 POC HCO3 POC Total CO2 POC Base Excess ABG pH (Temp Correct) ABG pCO2 (Temp Corrct POC ABG pO2 at Pt Temp POC ABG O2 Sat Kishan Test O2 Delivery Device POC O2 Rate POC FiO2 Tidal Volume PEEP POC Sodium Sodium 135 L POC Potassium Potassium 4.4 Chloride 91 L Carbon Dioxide 40 H Anion Gap 3.0 BUN 27 H Creatinine 0.26 L Est Cr Clr Drug Dosing 244.3 Est GFR ( Amer) 142.9 Est GFR (Non-Af Amer) 123.3 BUN/Creatinine Ratio 100.4 H Glucose 163 H POC Glucose 173 H Calcium 8.9 Phosphorus 2.4 L Magnesium 1.9 11/07/20 11/07/20 11/07/20 11:45 16:17 20:20 WBC RBC Hgb POC Hgb Hct POC Hct MCV MCH MCHC RDW Std Deviation RDW Coeff of Mary Plt Count MPV Absolute Nucleated RBC Nucleated RBC % (auto) Neutrophils % (Manual) Lymphocytes % (Manual) Monocytes % (Manual) Eosinophils % (Manual) Myelocytes % (Man) Neutrophils # (Manual) Total Absolute Neuts Lymphocytes # (Manual) Total Abs Lymphocytes Monocytes # (Manual) Eosinophils # (Manual) Myelocytes # (Manual) Sample Site POC pH POC pCO2 POC pO2 POC HCO3 POC Total CO2 POC Base Excess ABG pH (Temp Correct) ABG pCO2 (Temp Corrct POC ABG pO2 at Pt Temp POC ABG O2 Sat Kishan Test O2 Delivery Device POC O2 Rate POC FiO2 Tidal Volume PEEP POC Sodium Sodium POC Potassium Potassium Chloride Carbon Dioxide Anion Gap BUN Creatinine Est Cr Clr Drug Dosing Est GFR ( Amer) Est GFR (Non-Af Amer) BUN/Creatinine Ratio Glucose POC Glucose 119 H 189 H 185 H Calcium Phosphorus Magnesium Medications Administered Current Inpatient Medications Acetaminophen (Acetaminophen 325 Mg Tab) 650 mg PO Q4H PRN PRN Reason: Pain or Fever Stop: 11/14/20 20:32 Last Admin: 11/03/20 16:54 Dose: 650 mg Documented by: Al Hydrox/Mg Hydrox/Simethicone (Aluminum/Magnesium Susp 30 Ml Udc) 15 ml PO Q4H PRN PRN Reason: Dyspepsia Stop: 11/14/20 20:32 Aspirin (Aspirin 81 Mg Chew) 81 mg PO HS HARISH Stop: 11/27/20 20:59 Last Admin: 11/07/20 20:24 Dose: 81 mg Documented by: Dextrose (Dextrose 50% 50 Ml Syringe) 25 - 50 ml IV UD PRN; Protocol PRN Reason: Hypoglycemia Protocol Stop: 11/14/20 20:32 Enoxaparin Sodium (Enoxaparin Inj 40 Mg/0.4 Ml Syr) 40 mg SQ Q12H HARISH Stop: 12/04/20 06:59 Last Admin: 11/07/20 17:45 Dose: 40 mg Documented by: Fentanyl Citrate (Fentanyl Bolus From Bag) 50 mcg IV Q60M PRN PRN Reason: Pain or Agitation Stop: 11/10/20 12:36 Last Admin: 11/05/20 02:47 Dose: 50 mcg Documented by: Glucagon (Glucagon For Inj 1 Mg Vial) 1 mg SQ UD PRN; Protocol PRN Reason: Hypoglycemia Protocol Stop: 11/14/20 20:32 Glucose (Glucose 10 Tabs/Tube) 4 - 8 tabs PO UD PRN; Protocol PRN Reason: Hypoglycemia Protocol Stop: 11/14/20 20:32 Glucose (Glucose 40% Gel 15 Gm Tube) 15 - 30 gm PO UD PRN; Protocol PRN Reason: Hypoglycemia Protocol Stop: 11/14/20 20:32 Heparin Sodium (Beef Lung) (Heparin 10 Unit/Ml 5 Ml Flush) 5 ml FLUSH PRN PRN PRN Reason: Flush Stop: 11/27/20 22:57 Fentanyl Citrate (Fentanyl Drip) 1,250 mcg in 250 mls @ 20 mls/hr IV .[id number] [facility]; Protocol Stop: 11/10/20 12:44 Last Titration: 11/07/20 19:06 Dose: 100 mcg/hr, 20 mls/hr Documented by: Furosemide 40 mg/ Syringe 4 mls @ 4 mls/min IV DAILY HARISH Stop: 12/04/20 08:59 Last Admin: 11/07/20 07:51 Dose: 4 mls/min Documented by: Famotidine 20 mg/ Syringe 5 mls @ 2.5 mls/min IV Q12 [facility] Stop: 12/04/20 10:29 Last Admin: 11/07/20 20:25 Dose: 2.5 mls/min Documented by: Ceftriaxone Sodium 2,000 mg/ (Dextrose) 70 mls @ 140 mls/hr IV Q24H [facility] Stop: 11/13/20 09:59 Last Infusion: 11/07/20 10:59 Dose: Infused Documented by: Esmolol HCl (Brevibloc) 2,500 mg in 250 mls @ 15.975 mls/hr IV .[id number] [facility]; Protocol Stop: 12/06/20 10:44 Last Titration: 11/07/20 19:06 Dose: 25 mcg/kg/min, 16 mls/hr Documented by: Phenylephrine HCl 20 mg/ (Dextrose) 502 mls @ 78.914 mls/hr IV .Q6H22M [facility]; Protocol Stop: 12/07/20 10:59 Insulin Aspart (Insulin Aspart 100 Units/Ml 3 Ml Pen) 0 units SC Q4 [facility]; Protocol Stop: 11/27/20 15:59 Last Admin: 11/07/20 20:26 Dose: 5 units Documented by: Lactulose (Lactulose Syrup 20 Gm/30 Ml Udc) 20 gm PO DAILY [facility] Stop: 12/02/20 11:59 Last Admin: 11/07/20 07:47 Dose: 20 gm Documented by: Levothyroxine Sodium (Levothyroxine Sodium 75 Mcg Tablet) [facility] Stop: 11/15/20 06:29 Last Admin: 11/07/20 07:01 Dose: 75 mcg Documented by: Miscellaneous (Carbohydrates For Hypoglycemia ) 15 - 30 gm PO UD PRN PRN Reason: Hypoglycemia Protocol Stop: 11/14/20 20:32 Miscellaneous (Icu Electrolyte Replacement Protocol) 1 ea N/A BID@06,18 [facility]; Protocol Stop: 11/10/20 17:59 Last Admin: 11/07/20 17:02 Dose: 1 ea Documented by: Multi-Ingredient Cream (Artificial Tears Op Oint 3.5 Gm Tube) 1 appln OP Q4 [facility] Stop: 11/26/20 16:06 Last Admin: 11/07/20 20:24 Dose: 1 appln Documented by: Multivitamins/Minerals (Multi Vit W/Minerals Liquid 15 Ml Udp) 15 ml PO DAILY@1200 [facility] Stop: 11/28/20 11:59 Last Admin: 11/07/20 13:39 Dose: 15 ml Documented by: Nutritional Formula (Peptamen Intense Vhp 1.0 Juan Daniel 1,000 Ml Bag) 1,000 ml OG DAILY@1600 [facility]; Protocol Stop: 12/03/20 15:59 Last Admin: 11/07/20 10:19 Dose: 1,000 ml Documented by: Oxycodone HCl (Oxycodone Hcl Soln 5 Mg/5 Ml Udc) 5 mg PO Q4H PRN PRN Reason: Pain Stop: 11/21/20 10:47 Polyethylene Glycol (Polyethylene (Miralax) 17 Gm Pack) 17 gm PO DAILY PRN PRN Reason: Constipation Stop: 12/06/20 09:00 Rosuvastatin Calcium (Rosuvastatin Calcium 5 Mg Tab) 5 mg PO MoWeFr@0900 [facility] Stop: 11/17/20 08:59 Last Admin: 11/05/20 07:15 Dose: 5 mg Documented by: PG Care Time/CCT Total # of Minutes Spent Total Time Spent with Patient: Total time spent is greater than 50% in coordination of care (as documented) at patient's floor/unit and/or counseling patient: Coding Level of Care Code 56858 Subseq Hosp Care Lvl 2 Diagnoses Acute respiratory failure with hypoxia J96.01 Pneumonia due to COVID-19 virus U07.1; J12.89 Atrial fibrillation I48.91 Metabolic acidosis E87.2 Sepsis A41.9 Sepsis acute organ dysfunction status: unspecified Sepsis type: sepsis due to unspecified organism Prediabetes R73.03 Hyperlipidemia E78.5 GERD (gastroesophageal reflux disease) K21.9 Esophageal dysmotility K22.4 Hypothyroidism E03.9 Anxiety F41.9 DVT prophylaxis Z29.9 (1) Sepsis Sepsis acute organ dysfunction status: unspecified Sepsis type: sepsis due to unspecified organism Qualified Code(s): A41.9 - Sepsis, unspecified organism
[2020-11-08] MEDS: INSULIN ASPART 100 UNITS/ML 3 ML PEN SC SCH ×6 (01:47→20:17)
[2020-11-08] MEDS: ARTIFICIAL TEARS OP OINT 3.5 GM TUBE OP SCH ×6 (01:47→20:13)
[2020-11-08] MEDS ORDERED: PROPOFOL BOLUS FROM BAG IV PRN (02:02)
[2020-11-08] MEDS ORDERED: STAT IV Infusion **Titration per Protocol STA (02:02)
[2020-11-08] MEDS: propofoL 1,000 MG/100 ML VIAL IV SCH ×5 (02:24→15:51)
[2020-11-08 05:06] LABS: iSTAT Art Bld Gas pCO2 Correct 77 mmHg (35-46); iSTAT Art Bld Gas pH Corrected 7.401 (7.35-7.45); iSTAT Arterial Blood Gas HCO3 47 meg/L (19-24); iSTAT Arterial Blood Gas pCO2 75 mmHg (35-46); iSTAT Arterial Blood Gas pH 7.41 (7.35-7.45); iSTAT Arterial Blood Gas pO2 85 mmHg (80-95); iSTAT Arterial Blood Gas pO2 C 88; iSTAT Carbon Dioxide > 40 mmol/L (24-31); iSTAT FiO2 60 %; iSTAT Hematocrit 27 % (37-47); iSTAT Hemoglobin 9.2 g/dl (12.0-16.0); iSTAT Potassium 4.7 mmol/L (3.3-5.0); iSTAT Site Art Line; iSTAT Sodium 133 mmol/L (135-144)
[2020-11-08] MEDS: PEPTAMEN INTENSE VHP 1.0 CAL 1,000 ML BAG OG SCH (05:42)
[2020-11-08] MEDS: LEVOTHYROXINE SODIUM 75 MCG TABLET PO SCH (05:43)
[2020-11-08] MEDS: fentaNYL DRIP 1,250 MCG/250 ML BAG IV SCH ×2 (06:32→15:49)
[2020-11-08 07:31] LABS: Potassium 4.6 mmol/L (3.5-5.1)
[2020-11-08 07:32] LABS: Magnesium 2.4 mg/dl (1.8-2.4)
[2020-11-08 07:35] LABS: Hematocrit (blood only) 29.6 % (37-47); Hemoglobin 9.3 g/dL (12.0-16.0); Mean Corpuscular Hemoglobin 31.5 pg (25-34); Mean Corpuscular Hgb Conc 31.4 g/dL (32-36); Mean Corpuscular Volume 100.3 fL (80-100); Mean Platelet Volume 9.5 fL (7.4-10.4); Platelet Count 267 K/uL (130-400); RDW Coefficient of Variation 14.7 % (11.5-14.5); RDW Standard Deviation 52.8 fL (36.4-46.3); Red Blood Count 2.95 M/uL (4.2-5.4); White Blood Count 11.87 K/uL (4.8-10.8)
[2020-11-08] MEDS: ESMOLOL / NSS 2,500 MG/250 ML BAG IV SCH ×2 (07:46→15:49)
[2020-11-08] MEDS: FAMOTIDINE 20 MG in SYRINGE 3 ML IV SCH ×2 (07:49→20:13)
[2020-11-08] MEDS: FUROSEMIDE 40 MG in SYRINGE 0 ML IV SCH (07:50)
[2020-11-08] MEDS: ENOXAPARIN INJ 40 MG/0.4 ML SYR SQ SCH ×2 (07:51→20:11)
[2020-11-08] MEDS: LACTULOSE SYRUP 20 GM/30 ML UDC PO SCH (07:51)
[2020-11-08] MEDS: PHENYLEPHRINE HCL 20 MG in DEXTROSE 5% 500 ML IV SCH ×3 (07:52→07:54)
[2020-11-08] MEDS: ROSUVASTATIN CALCIUM 5 MG TAB PO SCH (07:52)
[2020-11-08 07:55] LABS: BUN Creatinine Ratio 128.2 (10-20); Blood Urea Nitrogen 28 mg/dl (7-18); Calcium 8.5 mg/dl (8.5-10.1); Carbon Dioxide 43 mmol/L (21-32); Chloride 94 mmol/L (98-107); Creatinine Clr Calc Pharmacy 288.8 ml/min; Est GFR (African American) > 150.0; Est GFR (Non-African American) 130.3; Glucose 114 mg/dl (70-99); Sodium 136 mmol/L (136-145)
[2020-11-08 08:04] LABS: ALC (manual) 0.93 K/uL (1.2-3.4); ANC (manual) 10.13 K/uL (1.4-6.5); Eosinophils % (manual) 1.7 %; Lymphocytes # (manual) 0.93 K/uL (1.2-3.4); Lymphocytes % (manual) 7.8 %; Metamyelocytes # (manual) 0.11 K/uL (0-0); Metamyelocytes % (manual) 0.9 %; Monocytes # (manual) 0.51 K/uL (0.11-0.59); Monocytes % (manual) 4.3 %; Neutrophils # (manual) 10.13 K/uL (1.4-6.5); Neutrophils % (manual) 85.3 %; Polychromasia 1+
[2020-11-08] MEDS: ICU ELECTROLYTE REPLACEMENT PROTOCOL SCH ×2 (08:12→16:32)
[2020-11-08] MEDS: acetaZOLAMIDE 250 MG in DEXTROSE 5% 100 ML IV SCH ×2 (09:26→20:16)
[2020-11-08] MEDS: cefTRIAXone SODIUM 2,000 MG in DEXTROSE 5% 50 ML IV SCH (09:27)
--- NOTE | 2020-11-08 10:24 | XRay Report ---
XR chest 1V portable HISTORY: 69 years-old Female rresp failure acute respiratory failure COMPARISON: Chest radiograph 11/07/2020 TECHNIQUE: Portable AP view of the chest FINDINGS: Cardiomediastinal and hilar silhouettes are unchanged. Calcified plaque of the thoracic aorta. Trache ostomy cannula overlies the midline, superior to the level of the clavicular heads. Unchanged positio javier of the left subclavian central venous catheter. Enteric tube is present coursing below the level of the diaphragm. Unchanged mild right hemidiaphragmatic elevation. There is no pneumothorax or larg e pleural effusion. Extensive bilateral airspace opacities appear unchanged. Left shoulder rotator cu ff calcific tendinosis. Bones appear grossly intact. IMPRESSION: 1. Lines and tubes as above. 2. Stable extensive bilateral airspace opacities. 3. No pneumothorax. ACT 112: Negative or not required by law. The above report was generated using voice recognition software. It may contain grammatical, syntax o r spelling errors. Electronically signed by: Brenton Avilez M.D. 11/08/2020 10:23 AM
--- NOTE | 2020-11-08 10:26 | Cardiology Consultation ---
Date of Consultation November 08, 2020 Assessment & Plan (1) Atrial fibrillation: As far as I know the patient does not have a history of atrial fibrillation however paroxysmal atrial fibrillation is common in her age group and asymptomatic paroxysmal atrial fibrillation is also relatively common. It is certainly possible that she has had it in the past in which case she probably should be on long-term anticoagulation. On the other hand it could all be stress-induced. Under the circumstances since she is on a monitor and she has relatively brief episodes (most of which do not appear to be atrial fibrillation) I do not think full anticoagulation is indicated. She will be on DVT prophylaxis which will give her some level of anticoagulation and should she develop more sustained atrial fibrillation (lasting 12 to 24 hours in duration) then full anticoagulation would be indicated. If she recovers from Covid we can consider long-term monitoring to see whether she has atrial fibrillation outside of this extremely stressful situation, that can be done either with an implantable loop recorder (which is the best option since they last 3 years) or external monitoring which which can be performed for up to 30 days. We can decide on whether to do monitoring once her pulmonary course becomes more clear. History of Present Illness Reason for Consultation: Atrial fibrillation and anticoagulation Attending Physician: Michael Monae, History of Present Illness This consult was requested for review of anticoagulation with regard to her paroxysmal atrial fibrillation. The consultation is going to be done remotely as the patient is in the Covid unit and doing a physical examination would yield little information in this regard. This is a 69-year-old woman admitted October 15, 2020 with respiratory failure due to COVID-19, now with ARDS, intubated and with a tracheostomy. She has been on a mechanical ventilator for 12 days (10/27/2020). During this hospitalization she has had brief episodes of atrial fibrillation. I believe the first episode was identified October 22, 2020 while severely ill, she was initiated on amiodarone at that time, I believe she had some bradycardia on it and she is no longer on amiodarone. She has been maintained on anticoagulation with Lovenox 40 mg every 12 hours. On November 06, 2020 I believe she had further episodes of atrial fibrillation. I have reviewed telemetry strips but that does not give the duration or atrial fibrillation burden, for the most part she is in sinus rhythm. I cannot obtain a history as she is intubated and I have not seen her in the Covid unit, from review of her prior records I do not believe she has a history of atrial fibrillation and she was not on anticoagulation on presentation. Allergies Allergy/AdvReac Type Severity Reaction Status Date / Time Penicillins Allergy Severe RESP Verified 07/15/20 09:32 DISTRESS/HIVES Home Medications Medication Instructions Recorded Confirmed Type Glucosamine Chondroitin 1 cap PO BID 04/03/19 10/15/20 History aspirin [Aspirin Low Dose] 81 mg PO HS 04/03/19 10/15/20 History biotin 5,000 mcg SUBLINGUAL 1200 04/03/19 10/15/20 History calcium carbonate-vitamin D3 1 tab PO BID 04/03/19 10/15/20 History [Calcium 600 + D(3)] cholecalciferol (vitamin D3) 2,000 unit PO 1200 04/03/19 10/15/20 History [Vitamin D3] multivitamin 1 tab PO 1200 04/03/19 10/15/20 History clonazepam 0.5 mg tablet 0.5 mg PO BID PRN #60 tab 09/17/19 10/15/20 Rx ciclopirox 8 % topical solution 1 appln TOP DAILY #6.6 ml 05/26/20 10/15/20 Rx fluticasone propionate 50 1 spray INTRANASAL HS #16 gm 06/15/20 10/15/20 Rx mcg/actuation nasal spray,suspension levothyroxine 75 mcg tablet 75 mcg PO DAILY #90 tab 07/05/20 10/15/20 Rx rosuvastatin 5 mg tablet 5 mg PO .COMPLEX #36 tab 07/08/20 10/15/20 Rx meloxicam 15 mg tablet 15 mg PO DAILY PRN #30 tab 07/28/20 10/15/20 Rx ondansetron HCl 4 mg tablet 4 mg PO Q8H PRN #30 tab 10/11/20 10/15/20 Rx pantoprazole 40 mg PO DAILYBB 10/15/20 10/15/20 History Patient History Medical History COVID-19 Fever GERD (gastroesophageal reflux disease) History of anesthesia reaction difficulty waking Hyperlipidemia Hypotension Hypothyroidism Migraine Obesity (BMI 30-39.9) Osteoarthritis Schatzki's ring of distal esophagus Surgical History History of cholecystectomy History of colonoscopy 2004 - [place] - [facility] sigmoid History of dilatation and curettage History of oral surgery permanent bridge placed History of total hysterectomy with bilateral salpingo-oophorectomy (BSO) 12/09/2013 History of vaginal surgery bartholin cyst removal History of wisdom tooth extraction Hx of laparoscopy diagnostic Family History Sister Family history of diabetes mellitus Bleeding disorder Grandfather (Paternal) Family hx of colon cancer Father Cardiac disorder Cancer Sister Hypertension Clotting disorder Sinusitis Mother Hypertension Stroke Cancer Sinusitis Other No family history of adverse response to anesthesia Social History Smoking Status: Never smoker Second Hand Exposure: No (father smoked); Hx Alcohol Use: Yes Alcohol type: beer, wine and hard liquor Alcohol Intake Frequency Comment: Social Drinker Hx Substance Use: No Preferred Language: Arabic Communication Ability: Effective Command And Control Officer Required: No Beliefs That Will Affect Care: None marital status: Current Living Situation: Alone Other Information That Helps Us Care for You: No Feels Safe at Home: Yes Safety Concerns: Feels Safe At This Time Assistive Devices: Oxygen - Continuous Review of Systems Review of Systems: Unobtainable due to endotracheal tube Physical Exam Physical Exam: Physical exam was not performed as the patient is prone on a ve ntilator in the Covid unit and exam would yield little to the consultation. Results & Data ([facility]) Vital Signs (Past 12 Hours) Vital Signs Temp Pulse Resp BP Pulse Ox 11/08/20 08:00 37.0 C 75 161/89 H 95 11/08/20 07:16 60 23 94 11/08/20 07:00 37.1 C 63 136/78 95 11/08/20 04:50 63 23 94 11/08/20 04:25 37.4 C 78 23 125/57 L 92 11/08/20 00:40 78 25 H 92 Laboratory Results CBC 11/08/20 11/08/20 Range/Units 05:36 06:55 WBC Cancelled 11.87 H RBC Cancelled 2.95 L Hgb Cancelled 9.3 L Hct Cancelled 29.6 L Plt Count Cancelled 267 Neut # (Auto) Cancelled Lymph # (Auto) Cancelled Fergus # (Auto) Cancelled Eos # (Auto) Cancelled Baso # (Auto) Cancelled Comprehensive Metabolic Panel 11/08/20 11/08/20 Range/Units 05:36 06:50 Sodium 136 (136-145) mmol/L Potassium 4.6 (3.5-5.1) mmol/L Chloride 94 L (98-107) mmol/L Carbon Dioxide 43 H* (21-32) mmol/L BUN 28 H (7-18) mg/dl Creatinine 0.22 L (0.6-1.2) mg/dl Glucose 114 H (70-99) mg/dl Calcium 8.5 (8.5-10.1) mg/dl Intake and Output 11/07/20 11/08/20 11/08/20 22:59 06:59 14:59 Intake Total 1096.280 / 2808.031 950.857 / 2808.031 68.792 / 68.792 Output Total 1250 / 1750 500 / 1750 Balance -153.720 / 1058.031 450.857 / 1058.031 68.792 / 68.792 Intake: IV 826.280 / 1998.031 410.857 / 1998.031 68.792 / 68.792 BREVIBLOC 2,500 mg In 250 ml @ 126.134 / 500.000 123.866 / 500.000 25 MCG/KG/MIN 15.975 mls/hr IV .[id number] [facility] Rx#:[id number] MAGNESIUM SULFATE / D5W 1 gm In 200 / 200 100 ml @ 50 mls/hr IV Q2H [facility] Rx#:[id number] Potassium Phosphate 15 Mmol In 255 / 255 Nss 250 ml @ 88 mls/hr IV ONE ONE Rx#:[id number] fentaNYL DRIP 1,250 mcg In 250 143.334 / 671.167 211.333 / 671.167 ml @ 100 MCG/HR 20 mls/hr IV . [id number] [facility] Rx#:[id number] DIPRIVAN 1,000 mg In 100 ml @ 101.812 / 271.864 75.658 / 271.864 68.792 / 68.792 20 MCG/KG/MIN 12.72 mls/hr IV . Q7H52M [facility] Rx#:[id number] Tube Feeding 240 / 720 480 / 720 Tube Irrigant 30 / 90 60 / 90 Output: Urine Amount (Catheter) 1250 / 1750 500 / 1750 Rincon/Indwelling 1250 / 1750 500 / 1750 Diagnostic Findings Review of telemetry for the last 72 hours on the computer, as well as monitor strips dating back to her admission shows periods of what appears to be an atrial tachycardia over the last 3 days, these tend to be brief, most appear to be automatic although some could be atrial flutter, perhaps atrial fibrillation that seems less likely due to the regularity. The majority of the time she is in sinus rhythm with premature atrial beats, PG Care Time/CCT Total # of Minutes Spent Total Time Spent with Patient: Total time spent is greater than 50% in coordination of care (as documented) at patient's floor/unit and/or counseling patient: Coding Level of Care Code 89569 Initial Inpt Care Lvl 3 Diagnoses Atrial fibrillation I48.91
[2020-11-08] MEDS ORDERED: AMIODARONE 200 MG TAB PO SCH (11:00)
[2020-11-08] MEDS: DEXAMETHASONE SOD PHOSPHATE 6 MG in SYRINGE 0 ML IV SCH (11:18)
[2020-11-08] MEDS: MULTI VIT W/MINERALS LIQUID 15 ML UDP PO SCH (12:17)
[2020-11-08] MEDS: hydrALAZINE HCL 20 MG/ML VIAL IV PRN (12:56)
--- NOTE | 2020-11-08 13:47 | Critical Care Progress Note ---
Date of Service November 08, 2020 Assessment & Plan (1) 2019 novel coronavirus–infected pneumonia (NCIP)#8211;infected pneumonia (NCIP): Impression: 69-year-old female with severe acute hypoxemic respiratory failure intubated due to novel coronavirus with ARDS now status post tracheostomy. PLAN: Neuro: Still on propofol and fentanyl, will try to wean it off. We will consider Seroquel if the patient still has bouts of agitation. QTC 442 Continue with oxycodone 5 mg as needed Resp: Trach dependent respiratory failure secondary to COVID-19 pneumonia Patient got 10 days of dexamethasone. She is still on high PEEP. Patient was started on ARDS protocol 20 mg of Decadron which was completed today. Complete fine more days of 10 mg of Decadron and then stop. ARDS secondary to coronavirus infection. The patient is currently day #13 of mechanical ventilation with diffuse pulmonary infiltrates. Wean PEEP and FiO2 to keep PO2 greater than 90% CV: History of A. fib with SVTs Patient has autonomic dysfunction when it comes to high blood pressure. Going up to 200s requiring medications going down into 80s systolic requiring pressors Currently on esmolol drip to control the heart rate as well as blood pressure. ID: Pansensitive Klebsiella from her sputum culture. Continue rocephin. Previously on merrem. Continue with total 7 days of Rocephin Urine cultures were growing group C strep from 10/15/2020 which were treated. COVID-19 pneumonia: S/p treatment GI/Nutrition: NG tube is in place. Continue tube feeds. She will need a PEG tube later which can be placed even at LTACH I have added MiraLAX as needed. Heme: Continue DVT prophylaxis with Lovenox. She is mildly anemic with no evidence of acute blood loss and no indication for transfusion. Endocrine: Glycemic control per protocol. Continue Synthroid Code Status: Full Disposition: ICU at this time and she will likely need LTAC placement in the near future. --Prophylaxis VTE: Lovenox GI: Pepcid Lines:Left subclavian placed 10/27 arterial line placed 10/27 Diet: Tube feeds Plan: In and out: +747, urine output 1750 ABG 7.4/75/85 on PEEP of 14, 60% Chest x-ray still shows diffuse infiltrates bilaterally Patient's bicarb is 43 today. Patient has been on Lasix on a daily basis. We will hold the Lasix and give her acetazolamide 250 MG every 12 for total of 6 doses. Monitor pH. Patient systolic blood pressure has been in the 200s. Patient has very labile blood pressure. I will start the patient on hydralazine 10 mg every 6 hours as needed I will also start the patient on amlodipine to be taken on a daily basis. Try to titrate off esmolol. For the patient history of A. fib and SVTs she has been on esmolol drip for a while. I will start the patient on amiodarone drip without bolus. Cardiology has been consulted as well. They agree with prophylactic anticoagulation no need for therapeutic anticoagulation for the time being. Patient still has bouts of agitation/restlessness where her respiratory goes into high 30s. Start working on LTAC. I have personally spent 36 minutes of critical care time in the direct management of this patient. This is a life/limb threatening event. This includes time spent evaluating patient, direct bedside care, chart review, placing orders, interpretation of diagnostic studies, discussion with consultants, patient, and family members, as well as other required patient management activities. This time is exclusive of all separately billable procedures, and teaching time and separate from and in addition to any other critical care service time. Admission and Anticipated Discharge Date Admission Date: October 15, 2020 Subjective Patient seen and examined at bedside. On propofol at the time of examination High blood pressure was in the 200s systolic she was still on esmolol drip Heart rate in the 80s. Afebrile. Review of Systems Review of Systems: All systems reviewed & are unremarkable except as noted in Subjective, Unobtainable due to mental health condition and Unobtainable due to cognitive status Physical Exam Physical Exam: Constitutional: No acute distress HEENT: PERRLA, positive trach Respiratory system: Decreased air entry bilaterally, no wheeze, no rhonchi positive crackles bilaterally CVS: S1-S2 positive, no murmurs or gallops Abdomen: Soft, nontender, nondistended, positive bowel sounds x4 Extremities: +2 pulses bilaterally radialis/ dorsalis pedis, no cyanosis, no edema Neuro: Sedated, positive corneal, positive gag, breathing over the vent Psych: Unable to assess G/U: Positive [place] Skin: no rashes, warm and dry Lymphatic: no cervical or axillary lymphadenopathy Results & Data Results & Data ([facility]) Vital Signs (Past 12 Hours) Vital Signs Temp Pulse Resp BP Pulse Ox 11/08/20 12:49 65 11/08/20 11:28 74 28 H 92 11/08/20 10:00 37.2 C 90 203/106 H 89 L 11/08/20 09:00 36.9 C 86 193/104 H 91 11/08/20 08:00 37.0 C 75 161/89 H 95 11/08/20 07:16 60 23 94 11/08/20 07:00 37.1 C 63 136/78 95 11/08/20 04:50 63 23 94 11/08/20 04:25 37.4 C 78 23 125/57 L 92 11/08/20 06:55 11/08/20 06:50 Coding Level of Care Code Critical Care 1st 30-74 mins Diagnoses 2019 novel coronavirus–infected pneumonia (NCIP)#8211;infected pneumonia ([facility]) U07.1; J12.89 Time Spent (min) 36
[2020-11-08] MEDS ORDERED: 0.2 MICRON FILTER SET 1 EA IV ONE (14:45)
[2020-11-08] MEDS ORDERED: AMIODARONE / D5W 360 MG/200 ML BAG IV SCH (15:00)
[2020-11-08] MEDS: amLODIPine BESYLATE 5 MG TAB PO SCH (15:15)
[2020-11-08] MEDS: ASPIRIN 81 MG CHEW PO SCH (20:13)
[2020-11-08] MEDS: AMIODARONE / D5W 360 MG/200 ML BAG IV SCH (20:17)
--- NOTE | 2020-11-08 22:41 | Hospitalist Progress Note ---
Date of Service November 08, 2020 Assessment & Plan (1) Acute respiratory failure with hypoxia: Intubated on 10/27, turned prone. ARDSnet settings with high PEEP and low FiO2 no real improvement in lung compliance when switching from supine to prone. She and her family agreed to intubation and [facility] ventilation. Intubated on 10/27. tracheostomy on 11/05 still trying to wean from ventilator, difficult time with sedation/anxiety (2) Pneumonia due to COVID-19 virus: stopped Decadron 10/29, it had been 14 days completed course of Remdesivir, LD 10/19 convalescent plasma on 10/16 Prognosis remains poor, try to wean from ventilator looking into LTACH once more stable (3) Atrial fibrillation: Patient developed atrial fibrillation in the face of her hypoxic respiratory distress on 10/22. cardiology recommended amiodarone therapy without bolus and 1 dose of digoxin 0.5. Patient reportedly broke and became slightly bradycardic at times in a junctional rhythm continue full anticoagulation for now, Lovenox 100 q12 continue to monitor on tele, having afib with RVR at times BP very sensitive, possible autonomic dysfunction esmolol drip PRN ordered (4) Metabolic acidosis: initiate Diamox, follow HCO3 levels, coming down (5) Sepsis: Source - COVID-19 +/- possible bacterial PNA completed course of Levaquin sepsis resolved (6) Prediabetes: HbA1C 5.9 in May. Glucose 129 on admission no longer on dexamethasone, easier to manage (7) Hyperlipidemia: (8) GERD (gastroesophageal reflux disease): Continue her usual pantoprazole 40mg PO daily (9) Esophageal dysmotility: Aspiration precautions. (10) Hypothyroidism: TSH 1.31 in Aug. Continue levothyroxine 75 mcg PO daily (11) Anxiety: now on sedation (12) DVT prophylaxis: Lovenox therapeutic Admission and Anticipated Discharge Date Admission Date: October 15, [address] Mendoza Review of Systems Review of Systems: Unobtainable due to reduced consciousness (tracheostomy) Physical Exam Constitutional: well developed, well nourished and + mechanically ventilated (supine, tracheostomy) Neck: trachea midline, no thyromegaly + tracheostomy present Respiratory: symmetric chest movement (ventilated) Auscultation: lungs clear to auscultation bilaterally Cardiovascular: RRR, no murmur, no edema Gastrointestinal (Abdomen): normal bowel sounds, soft, nontender, no hepatosplenomegaly Musculoskeletal: Head/Neck/Chest: normocephalic, head atraumatic and neck supple Extremities: extremities normal to inspection; no cyanosis and no clubbing Skin: no rashes, warm and dry Neurologic: + obtunded; no focal motor deficits Psychiatric: Orientation: + not alert Results & Data Results & Data ([facility]) Vital Signs (Past 12 Hours) Vital Signs Temp Pulse Resp BP Pulse Ox 11/08/20 19:30 75 27 H 89 L 11/08/20 16:00 37.1 C 82 186/89 H 91 11/08/20 15:32 90 30 H 60 L 11/08/20 15:00 37.2 C 93 H 162/102 H 92 11/08/20 14:00 37.4 C 83 178/84 H 89 L 11/08/20 13:00 37.2 C 80 194/99 H 90 11/08/20 12:49 65 11/08/20 12:00 37.3 C 101 H 182/102 H 90 11/08/20 11:28 74 28 H 92 11/08/20 11:00 37.4 C 93 H 158/85 H 92 Laboratory Results Laboratory Results - last 24 hr 11/08/20 11/08/20 11/08/20 01:27 04:03 04:52 WBC RBC Hgb POC Hgb 9.2 L Hct POC Hct 27 L MCV MCH MCHC RDW Std Deviation RDW Coeff of Mary Plt Count MPV Immature Gran % (Auto) Neut % (Auto) Lymph % (Auto) Shannon % (Auto) Eos % (Auto) Baso % (Auto) Neut # (Auto) Lymph # (Auto) Shannon # (Auto) Eos # (Auto) Baso # (Auto) Immature Gran # (Auto) Absolute Nucleated RBC Nucleated RBC % (auto) Neutrophils % (Manual) Band Neutrophils % Lymphocytes % (Manual) Prolymphocyte % Reactive Lymphs % (Man) Monocytes % (Manual) Eosinophils % (Manual) Basophils % (Manual) Metamyelocytes % (Man) Myelocytes % (Man) Promyelocytes % (Man) Blast Cells % (Manual) Plasma Cell % (Manual) Other Cells % Nucleated RBC % Neutrophils # (Manual) Band Neutrophils # Total Absolute Neuts Lymphocytes # (Manual) Prolymphocyte # Reactive Lymphs # Total Abs Lymphocytes Monocytes # (Manual) Eosinophils # (Manual) Basophils # (Manual) Metamyelocytes # (Man) Myelocytes # (Manual) Promyelocytes # (Man) Blast Cells # (Man) Plasma Cell # (Manual) Other Cells # Nucleated RBCs # (Man) Hypersegmented Neuts Hyposegmented Neuts Hypogranular Neuts Large Granular Lymphs # Lrg Granular Lymphs Hairy Cells Smudge Cells Toxic Granulation Toxic Vacuolation Dohle Bodies Nanda Rods Platelet Estimate Hypogranular Platelets Clumped Platelets Giant Platelets Platelet Satelliting RBC Morphology Polychromasia Hypochromasia Poikilocytosis Basophilic Stippling Anisocytosis Microcytosis Macrocytosis Spherocytes Pappenheimer Bodies Sickle Cells Target Cells Tear Drop Cells Ovalocytes Stomatocytes [place] Bodies Echinocytes Acanthocytes (Spur) Rouleaux RBC Agglutinates Schistocytes RBC Morph Comment Sezary Cell Sample Site Art Line POC pH 7.41 POC pCO2 75 H POC pO2 85 POC HCO3 47 H POC Total CO2 > 40 H* POC Base Excess 23.0 H ABG pH (Temp Correct) 7.401 ABG pCO2 (Temp Corrct 77 H POC ABG pO2 at Pt Temp 88 POC ABG O2 Sat 96.0 H Kishan Test NA O2 Delivery Device Ventilator POC O2 Rate 20 POC FiO2 60 Tidal Volume 380 PEEP 14 POC Sodium 133 L Sodium POC Potassium 4.7 Potassium Chloride Carbon Dioxide Anion Gap BUN Creatinine Est Cr Clr Drug Dosing Est GFR ( Amer) Est GFR (Non-Af Amer) BUN/Creatinine Ratio Glucose POC Glucose 136 H 130 H Calcium Phosphorus Magnesium 11/08/20 11/08/20 11/08/20 05:36 05:36 05:45 WBC Cancelled RBC Cancelled Hgb Cancelled POC Hgb Hct Cancelled POC Hct MCV Cancelled MCH Cancelled MCHC Cancelled RDW Std Deviation Cancelled RDW Coeff of Mary Cancelled Plt Count Cancelled MPV Cancelled Immature Gran % (Auto) Cancelled Neut % (Auto) Cancelled Lymph % (Auto) Cancelled Shannon % (Auto) Cancelled Eos % (Auto) Cancelled Baso % (Auto) Cancelled Neut # (Auto) Cancelled Lymph # (Auto) Cancelled Shannon # (Auto) Cancelled Eos # (Auto) Cancelled Baso # (Auto) Cancelled Immature Gran # (Auto) Cancelled Absolute Nucleated RBC Cancelled Nucleated RBC % (auto) Cancelled Neutrophils % (Manual) Cancelled Band Neutrophils % Cancelled Lymphocytes % (Manual) Cancelled Prolymphocyte % Cancelled Reactive Lymphs % (Man) Cancelled Monocytes % (Manual) Cancelled Eosinophils % (Manual) Cancelled Basophils % (Manual) Cancelled Metamyelocytes % (Man) Cancelled Myelocytes % (Man) Cancelled Promyelocytes % (Man) Cancelled Blast Cells % (Manual) Cancelled Plasma Cell % (Manual) Cancelled Other Cells % Cancelled Nucleated RBC % Cancelled Neutrophils # (Manual) Cancelled Band Neutrophils # Cancelled Total Absolute Neuts Cancelled Lymphocytes # (Manual) Cancelled Prolymphocyte # Cancelled Reactive Lymphs # Cancelled Total Abs Lymphocytes Cancelled Monocytes # (Manual) Cancelled Eosinophils # (Manual) Cancelled Basophils # (Manual) Cancelled Metamyelocytes # (Man) Cancelled Myelocytes # (Manual) Cancelled Promyelocytes # (Man) Cancelled Blast Cells # (Man) Cancelled Plasma Cell # (Manual) Cancelled Other Cells # Cancelled Nucleated RBCs # (Man) Cancelled Hypersegmented Neuts Cancelled Hyposegmented Neuts Cancelled Hypogranular Neuts Cancelled Large Granular Lymphs Cancelled # Lrg Granular Lymphs Cancelled Hairy Cells Cancelled Smudge Cells Cancelled Toxic Granulation Cancelled Toxic Vacuolation Cancelled Dohle Bodies Cancelled Nanda Rods Cancelled Platelet Estimate Cancelled Hypogranular Platelets Cancelled Clumped Platelets Cancelled Giant Platelets Cancelled Platelet Satelliting Cancelled RBC Morphology Cancelled Polychromasia Cancelled Hypochromasia Cancelled Poikilocytosis Cancelled Basophilic Stippling Cancelled Anisocytosis Cancelled Microcytosis Cancelled Macrocytosis Cancelled Spherocytes Cancelled Pappenheimer Bodies Cancelled Sickle Cells Cancelled Target Cells Cancelled Tear Drop Cells Cancelled Ovalocytes Cancelled Stomatocytes Cancelled [place] Bodies Cancelled Echinocytes Cancelled Acanthocytes (Spur) Cancelled Rouleaux Cancelled RBC Agglutinates Cancelled Schistocytes Cancelled RBC Morph Comment Cancelled Sezary Cell Cancelled Sample Site POC pH POC pCO2 POC pO2 POC HCO3 POC Total CO2 POC Base Excess ABG pH (Temp Correct) ABG pCO2 (Temp Corrct POC ABG pO2 at Pt Temp POC ABG O2 Sat Kishna Test O2 Delivery Device POC O2 Rate POC FiO2 Tidal Volume PEEP POC Sodium Sodium POC Potassium Potassium Chloride Carbon Dioxide Anion Gap BUN Creatinine Est Cr Clr Drug Dosing Est GFR ( Amer) Est GFR (Non-Af Amer) BUN/Creatinine Ratio Glucose POC Glucose 114 H Calcium Phosphorus Magnesium 11/08/20 11/08/20 11/08/20 06:50 06:55 07:50 WBC 11.87 H RBC 2.95 L Hgb 9.3 L POC Hgb Hct 29.6 L POC Hct MCV 100.3 H MCH 31.5 MCHC 31.4 L RDW Std Deviation 52.8 H RDW Coeff of Mary 14.7 H Plt Count 267 MPV 9.5 Immature Gran % (Auto) Neut % (Auto) Lymph % (Auto) Shannon % (Auto) Eos % (Auto) Baso % (Auto) Neut # (Auto) Lymph # (Auto) Shannon # (Auto) Eos # (Auto) Baso # (Auto) Immature Gran # (Auto) Absolute Nucleated RBC Nucleated RBC % (auto) Neutrophils % (Manual) 85.3 Band Neutrophils % Lymphocytes % (Manual) 7.8 Prolymphocyte % Reactive Lymphs % (Man) Monocytes % (Manual) 4.3 Eosinophils % (Manual) 1.7 Basophils % (Manual) Metamyelocytes % (Man) 0.9 Myelocytes % (Man) Promyelocytes % (Man) Blast Cells % (Manual) Plasma Cell % (Manual) Other Cells % Nucleated RBC % Neutrophils # (Manual) 10.13 H Band Neutrophils # Total Absolute Neuts 10.13 H Lymphocytes # (Manual) 0.93 L Prolymphocyte # Reactive Lymphs # Total Abs Lymphocytes 0.93 L Monocytes # (Manual) 0.51 Eosinophils # (Manual) 0.20 Basophils # (Manual) Metamyelocytes # (Man) 0.11 H Myelocytes # (Manual) Promyelocytes # (Man) Blast Cells # (Man) Plasma Cell # (Manual) Other Cells # Nucleated RBCs # (Man) Hypersegmented Neuts Hyposegmented Neuts Hypogranular Neuts Large Granular Lymphs # Lrg Granular Lymphs Hairy Cells Smudge Cells Toxic Granulation Toxic Vacuolation Dohle Bodies Nanda Rods Platelet Estimate Hypogranular Platelets Clumped Platelets Giant Platelets Platelet Satelliting RBC Morphology Polychromasia 1+ Hypochromasia Poikilocytosis Basophilic Stippling Anisocytosis Microcytosis Macrocytosis Spherocytes Pappenheimer Bodies Sickle Cells Target Cells Tear Drop Cells Ovalocytes Stomatocytes [place] Bodies Echinocytes Acanthocytes (Spur) Rouleaux RBC Agglutinates Schistocytes RBC Morph Comment Sezary Cell Sample Site POC pH POC pCO2 POC pO2 POC HCO3 POC Total CO2 POC Base Excess ABG pH (Temp Correct) ABG pCO2 (Temp Corrct POC ABG pO2 at Pt Temp POC ABG O2 Sat Kishan Test O2 Delivery Device POC O2 Rate POC FiO2 Tidal Volume PEEP POC Sodium Sodium 136 POC Potassium Potassium 4.6 Chloride 94 L Carbon Dioxide 43 H* Anion Gap -1.0 L BUN 28 H Creatinine 0.22 L Est Cr Clr Drug Dosing 288.8 Est GFR ( Amer) > 150.0 Est GFR (Non-Af Amer) 130.3 BUN/Creatinine Ratio 128.2 H Glucose 114 H POC Glucose 122 H Calcium 8.5 Phosphorus Magnesium 2.4 11/08/20 11/08/20 11/08/20 11:54 16:18 20:08 WBC RBC Hgb POC Hgb Hct POC Hct MCV MCH MCHC RDW Std Deviation RDW Coeff of Mary Plt Count MPV Immature Gran % (Auto) Neut % (Auto) Lymph % (Auto) Shannon % (Auto) Eos % (Auto) Baso % (Auto) Neut # (Auto) Lymph # (Auto) Shannon # (Auto) Eos # (Auto) Baso # (Auto) Immature Gran # (Auto) Absolute Nucleated RBC Nucleated RBC % (auto) Neutrophils % (Manual) Band Neutrophils % Lymphocytes % (Manual) Prolymphocyte % Reactive Lymphs % (Man) Monocytes % (Manual) Eosinophils % (Manual) Basophils % (Manual) Metamyelocytes % (Man) Myelocytes % (Man) Promyelocytes % (Man) Blast Cells % (Manual) Plasma Cell % (Manual) Other Cells % Nucleated RBC % Neutrophils # (Manual) Band Neutrophils # Total Absolute Neuts Lymphocytes # (Manual) Prolymphocyte # Reactive Lymphs # Total Abs Lymphocytes Monocytes # (Manual) Eosinophils # (Manual) Basophils # (Manual) Metamyelocytes # (Man) Myelocytes # (Manual) Promyelocytes # (Man) Blast Cells # (Man) Plasma Cell # (Manual) Other Cells # Nucleated RBCs # (Man) Hypersegmented Neuts Hyposegmented Neuts Hypogranular Neuts Large Granular Lymphs # Lrg Granular Lymphs Hairy Cells Smudge Cells Toxic Granulation Toxic Vacuolation Dohle Bodies Nanda Rods Platelet Estimate Hypogranular Platelets Clumped Platelets Giant Platelets Platelet Satelliting RBC Morphology Polychromasia Hypochromasia Poikilocytosis Basophilic Stippling Anisocytosis Microcytosis Macrocytosis Spherocytes Pappenheimer Bodies Sickle Cells Target Cells Tear Drop Cells Ovalocytes Stomatocytes [place] Bodies Echinocytes Acanthocytes (Spur) Rouleaux RBC Agglutinates Schistocytes RBC Morph Comment Sezary Cell Sample Site POC pH POC pCO2 POC pO2 POC HCO3 POC Total CO2 POC Base Excess ABG pH (Temp Correct) ABG pCO2 (Temp Corrct POC ABG pO2 at Pt Temp POC ABG O2 Sat Kishan Test O2 Delivery Device POC O2 Rate POC FiO2 Tidal Volume PEEP POC Sodium Sodium POC Potassium Potassium Chloride Carbon Dioxide Anion Gap BUN Creatinine Est Cr Clr Drug Dosing Est GFR ( Amer) Est GFR (Non-Af Amer) BUN/Creatinine Ratio Glucose POC Glucose 172 H 202 H 171 H Calcium Phosphorus Magnesium Medications Administered Current Inpatient Medications Acetaminophen (Acetaminophen 325 Mg Tab) 650 mg PO Q4H PRN PRN Reason: Pain or Fever Stop: 11/14/20 20:32 Last Admin: 11/03/20 16:54 Dose: 650 mg Documented by: Al Hydrox/Mg Hydrox/Simethicone (Aluminum/Magnesium Susp 30 Ml Udc) 15 ml PO Q4H PRN PRN Reason: Dyspepsia Stop: 11/14/20 20:32 Amlodipine Besylate (Amlodipine Besylate 5 Mg Tab) 10 mg PO QAM HARISH Stop: 12/08/20 14:44 Last Admin: 11/08/20 15:15 Dose: 10 mg Documented by: Aspirin (Aspirin 81 Mg Chew) 81 mg PO HS HARISH Stop: 11/27/20 20:59 Last Admin: 11/08/20 20:13 Dose: 81 mg Documented by: Dextrose (Dextrose 50% 50 Ml Syringe) 25 - 50 ml IV UD PRN; Protocol PRN Reason: Hypoglycemia Protocol Stop: 11/14/20 20:32 Enoxaparin Sodium (Enoxaparin Inj 40 Mg/0.4 Ml Syr) 40 mg SQ Q12H HARISH Stop: 12/04/20 06:59 Last Admin: 11/08/20 20:11 Dose: 40 mg Documented by: Fentanyl Citrate (Fentanyl Bolus From Bag) 50 mcg IV Q60M PRN PRN Reason: Pain or Agitation Stop: 11/10/20 12:36 Last Admin: 11/08/20 13:47 Dose: 50 mcg Documented by: Glucagon (Glucagon For Inj 1 Mg Vial) 1 mg SQ UD PRN; Protocol PRN Reason: Hypoglycemia Protocol Stop: 11/14/20 20:32 Glucose (Glucose 10 Tabs/Tube) 4 - 8 tabs PO UD PRN; Protocol PRN Reason: Hypoglycemia Protocol Stop: 11/14/20 20:32 Glucose (Glucose 40% Gel 15 Gm Tube) 15 - 30 gm PO UD PRN; Protocol PRN Reason: Hypoglycemia Protocol Stop: 11/14/20 20:32 Heparin Sodium (Beef Lung) (Heparin 10 Unit/Ml 5 Ml Flush) 5 ml FLUSH PRN PRN PRN Reason: Flush Stop: 11/27/20 22:57 Hydralazine HCl (Hydralazine Hcl 20 Mg/Ml Vial) 10 mg IV Q6H PRN PRN Reason: SBP > 160 Stop: 12/08/20 10:34 Last Admin: 11/08/20 12:56 Dose: 10 mg Documented by: Fentanyl Citrate (Fentanyl Drip) 1,250 mcg in 250 mls @ 25 mls/hr IV .Q10H HARISH; Protocol Stop: 11/10/20 12:44 Last Admin: 11/08/20 15:49 Dose: 125 mcg/hr, 25 mls/hr Documented by: Furosemide 40 mg/ Syringe 4 mls @ 4 mls/min IV DAILY HARISH Stop: 12/04/20 08:59 Last Admin: 11/08/20 07:50 Dose: 4 mls/min Documented by: Famotidine 20 mg/ Syringe 5 mls @ 2.5 mls/min IV Q12 [facility]ISH Stop: 12/04/20 10:29 Last Admin: 11/08/20 20:13 Dose: 2.5 mls/min Documented by: Ceftriaxone Sodium 2,000 mg/ (Dextrose) 70 mls @ 140 mls/hr IV Q24H [facility]ISH Stop: 11/13/20 09:59 Last Infusion: 11/08/20 10:44 Dose: Infused Documented by: Esmolol HCl (Brevibloc) 2,500 mg in 250 mls @ 19.17 mls/hr IV .Q13H3M [facility]; Protocol Stop: 12/06/20 10:44 Last Titration: 11/08/20 20:18 Dose: 30 mcg/kg/min, 19.2 mls/hr Documented by: Propofol (Diprivan) 1,000 mg in 100 mls @ 12.576 mls/hr IV .Q7H58M [facility]; Prot ocol Stop: 11/11/20 02:14 Last Admin: 11/08/20 11:18 Dose: Not Given Documented by: Acetazolamide 250 mg/ Dextrose 102.5 mls @ 100 mls/hr IV BID [facility] Stop: 11/10/20 22:02 Last Admin: 11/08/20 20:16 Dose: 100 mls/hr Documented by: Dexamethasone Sodium Phosphate (6 mg/ Syringe) 1.5 mls @ 1 mls/min IV QAM [facility] Stop: 11/12/20 09:02 Last Admin: 11/08/20 11:18 Dose: 1 mls/min Documented by: Amiodarone HCl/Dextrose (Nexterone / D5w) 360 mg in 200 mls @ 16.7 mls/hr IV .[id number] [facility] Stop: 12/08/20 20:59 Last Admin: 11/08/20 20:17 Dose: 16.7 mls/hr Documented by: Insulin Aspart (Insulin Aspart 100 Units/Ml 3 Ml Pen) 0 units SC Q4 [facility]; Protocol Stop: 11/27/20 15:59 Last Admin: 11/08/20 20:17 Dose: 3 units Documented by: Lactulose (Lactulose Syrup 20 Gm/30 Ml Udc) 20 gm PO DAILY [facility] Stop: 12/02/20 11:59 Last Admin: 11/08/20 07:51 Dose: 20 gm Documented by: Levothyroxine Sodium (Levothyroxine Sodium 75 Mcg Tablet) [facility] Stop: 11/15/20 06:29 Last Admin: 11/08/20 05:43 Dose: 75 mcg Documented by: Miscellaneous (Carbohydrates For Hypoglycemia ) 15 - 30 gm PO UD PRN PRN Reason: Hypoglycemia Protocol Stop: 11/14/20 20:32 Miscellaneous (Icu Electrolyte Replacement Protocol) 1 ea N/A BID@ [facility]; Protocol Stop: 11/10/20 17:59 Last Admin: 11/08/20 16:32 Dose: Not Given Documented by: Multi-Ingredient Cream (Artificial Tears Op Oint 3.5 Gm Tube) 1 appln OP Q4 [facility] Stop: 11/26/20 16:06 Last Admin: 11/08/20 20:13 Dose: 1 appln Documented by: Multivitamins/Minerals (Multi Vit W/Minerals Liquid 15 Ml Udp) 15 ml PO DAILY@1200 [facility] Stop: 11/28/20 11:59 Last Admin: 11/08/20 12:17 Dose: 15 ml Documented by: Nutritional Formula (Peptamen Intense Vhp 1.0 Juan Daniel 1,000 Ml Bag) 1,000 ml OG DAILY@1600 [facility]; Protocol Stop: 12/03/20 15:59 Last Admin: 11/08/20 05:42 Dose: 1,000 ml Documented by: Oxycodone HCl (Oxycodone Hcl Soln 5 Mg/5 Ml Udc) 5 mg PO Q4H PRN PRN Reason: Pain Stop: 11/21/20 10:47 Polyethylene Glycol (Polyethylene (Miralax) 17 Gm Pack) 17 gm PO DAILY PRN PRN Reason: Constipation Stop: 12/06/20 09:00 Propofol (Propofol Bolus From Bag) 20 mg IV Q5M PRN PRN Reason: Sedation Stop: 11/11/20 02:01 Last Admin: 11/08/20 13:34 Dose: 20 mg Documented by: Rosuvastatin Calcium (Rosuvastatin Calcium 5 Mg Tab) 5 mg PO MoWeFr@0900 [facility] Stop: 11/17/20 08:59 Last Admin: 11/08/20 07:52 Dose: 5 mg Documented by: PG Care Time/CCT Total # of Minutes Spent Total Time Spent with Patient: Total time spent is greater than 50% in coordination of care (as documented) at patient's floor/unit and/or counseling patient: Coding Level of Care Code 20939 Subseq Hosp Care Lvl 2 Diagnoses Acute respiratory failure with hypoxia J96.01 Pneumonia due to COVID-19 virus U07.1; J12.89 Atrial fibrillation I48.91 Metabolic acidosis E87.2 Sepsis A41.9 Sepsis acute organ dysfunction status: unspecified Sepsis type: sepsis due to unspecified organism Prediabetes R73.03 Hyperlipidemia E78.5 GERD (gastroesophageal reflux disease) K21.9 Esophageal dysmotility K22.4 Hypothyroidism E03.9 Anxiety F41.9 DVT prophylaxis Z29.9 (1) Sepsis Sepsis acute organ dysfunction status: unspecified Sepsis type: sepsis due to unspecified organism Qualified Code(s): A41.9 - Sepsis, unspecified organism
[2020-11-09] MEDS: propofoL 1,000 MG/100 ML VIAL IV SCH ×8 (00:15→18:09)
[2020-11-09] MEDS: INSULIN ASPART 100 UNITS/ML 3 ML PEN SC SCH ×7 (00:46→23:48)
[2020-11-09] MEDS: ARTIFICIAL TEARS OP OINT 3.5 GM TUBE OP SCH ×7 (00:46→23:49)
[2020-11-09] MEDS: fentaNYL DRIP 1,250 MCG/250 ML BAG IV SCH ×3 (03:49→22:21)
[2020-11-09 04:17] LABS: iSTAT Art Bld Gas pCO2 Correct 69 mmHg (35-46); iSTAT Art Bld Gas pH Corrected 7.382 (7.35-7.45); iSTAT Arterial Blood Gas HCO3 41 meg/L (19-24); iSTAT Arterial Blood Gas pCO2 71 mmHg (35-46); iSTAT Arterial Blood Gas pH 7.37 (7.35-7.45); iSTAT Arterial Blood Gas pO2 66 mmHg (80-95); iSTAT Arterial Blood Gas pO2 C 64; iSTAT Carbon Dioxide > 40 mmol/L (24-31); iSTAT Hematocrit 31 % (37-47); iSTAT Hemoglobin 10.5 g/dl (12.0-16.0); iSTAT Potassium 4.2 mmol/L (3.3-5.0); iSTAT Site Art Line; iSTAT Sodium 132 mmol/L (135-144)
[2020-11-09] MEDS: ESMOLOL / NSS 2,500 MG/250 ML BAG IV SCH (04:37)
[2020-11-09] MEDS: ENOXAPARIN INJ 40 MG/0.4 ML SYR SQ SCH ×2 (06:25→18:08)
[2020-11-09] MEDS: LEVOTHYROXINE SODIUM 75 MCG TABLET PO SCH (06:26)
[2020-11-09 06:51] LABS: Hematocrit (blood only) 30.4 % (37-47); Hemoglobin 9.9 g/dL (12.0-16.0); Mean Corpuscular Hemoglobin 32.6 pg (25-34); Mean Corpuscular Hgb Conc 32.6 g/dL (32-36); Mean Platelet Volume 9.4 fL (7.4-10.4); Platelet Count 310 K/uL (130-400); RDW Standard Deviation 53.9 fL (36.4-46.3); Red Blood Count 3.04 M/uL (4.2-5.4); White Blood Count 13.52 K/uL (4.8-10.8)
[2020-11-09 07:15] LABS: Basophils # (auto) 0.03 K/uL (0-0.2); Basophils % (auto) 0.2 %; Eosinophils # (auto) 0.19 K/uL (0-0.5); Eosinophils % (auto) 1.4 %; Immature Granulocytes % (auto) 5.2 %; Lymphocytes # (auto) 0.71 K/uL (1.2-3.4); Lymphocytes % (auto) 5.3 %; Monocytes # (auto) 0.65 K/uL (0.11-0.59); Monocytes % (auto) 4.8 %; Neutrophils # (auto) 11.24 K/uL (1.4-6.5); Neutrophils % (auto) 83.1 %
[2020-11-09 07:40] LABS: Calcium 8.7 mg/dl (8.5-10.1); Creatinine Clr Calc Pharmacy 266.5 ml/min; Est GFR (African American) 146.7; Est GFR (Non-African American) 126.6; Magnesium 2.3 mg/dl (1.8-2.4); Phosphorus 3.3 mg/dl (2.5-4.9); Potassium 3.7 mmol/L (3.5-5.1)
[2020-11-09] MEDS: ICU ELECTROLYTE REPLACEMENT PROTOCOL SCH ×2 (07:56→18:04)
[2020-11-09] MEDS ORDERED: POTASSIUM CHLORIDE 20 MEQ/15 ML UDC NG STA (07:58)
[2020-11-09] MEDS: AMIODARONE / D5W 360 MG/200 ML BAG IV SCH ×2 (08:07→20:22)
[2020-11-09] MEDS: LACTULOSE SYRUP 20 GM/30 ML UDC PO SCH (08:08)
[2020-11-09] MEDS: DEXAMETHASONE SOD PHOSPHATE 6 MG in SYRINGE 0 ML IV SCH (08:08)
[2020-11-09] MEDS: amLODIPine BESYLATE 5 MG TAB PO SCH (08:09)
[2020-11-09] MEDS: MULTI VIT W/MINERALS LIQUID 15 ML UDP PO SCH (08:09)
[2020-11-09] MEDS: FAMOTIDINE 20 MG in SYRINGE 3 ML IV SCH ×2 (08:11→20:17)
[2020-11-09] MEDS: acetaZOLAMIDE 250 MG in DEXTROSE 5% 100 ML IV SCH ×2 (08:11→20:16)
--- NOTE | 2020-11-09 08:40 | XRay Report ---
XR chest 1V portable HISTORY: 69 years-old Female resp failure acute respiratory failure COMPARISON: Chest radiograph 11/08/2020 TECHNIQUE: Portable AP view of the chest FINDINGS: Tracheostomy cannula overlies the midline. A feeding tube is present with distal tip extending inferi shaun outside the [id number] below the level the diaphragm. Left subclavian central venous catheter is unchanged with distal tip terminating in the expected location of the inferior SVC. Cardiomediast inal and hilar silhouettes are unchanged. No pneumothorax or large pleural effusion. Extensive bilate ral airspace opacities appear unchanged. Bones appear grossly intact. Cholecystectomy. IMPRESSION: 1. Lines and tubes as above. 2. Extensive bilateral airspace opacities appear generally stable. 3. No pneumothorax. ACT 112: Negative or not required by law. The above report was generated using voice recognition software. It may contain grammatical, syntax o r spelling errors. Electronically signed by: Brenton Avilez M.D. 11/09/2020 8:39 AM
--- NOTE | 2020-11-09 09:29 | Cardiology Progress Note ---
Date of Service November 09, 2020 Assessment & Plan (1) Atrial fibrillation: As far as I know the patient does not have a history of atrial fibrillation however paroxysmal atrial fibrillation is common in her age group and asymptomatic paroxysmal atrial fibrillation is also relatively common. It is certainly possible that she has had it in the past in which case she probably should be on long-term anticoagulation. On the other hand it could all be stress-induced. Under the circumstances since she is on a monitor and she has relatively brief episodes (most of which do not appear to be atrial fibrillation) I do not think full anticoagulation is indicated. She will be on DVT prophylaxis which will give her some level of anticoagulation and should she develop more sustained atrial fibrillation (lasting 12 to 24 hours in duration) then full anticoagulation would be indicated. If she recovers from Covid we can consider long-term monitoring to see whether she has atrial fibrillation outside of this extremely stressful situation, that can be done either with an implantable loop recorder (which is the best option since they last 3 years) or external monitoring which which can be performed for up to 30 days. We can decide on whether to do monitoring once her pulmonary course becomes more clear. Her rhythm is much better now on IV amiodarone, she has had very little significant ectopy and her heart rate is a little bit low but acceptable. Most the time her blood pressure is acceptable as well. I would continue it for now, I am not sure we will need it for the long run but at least for now it may be a good idea as long as she continues to tolerate it. Admission and Anticipated Discharge Date Admission Date: October 15, 2020 Subjective Patient remains on a ventilator in the Covid unit. Physical Exam Physical Exam: I did not enter the Covid unit to examine her. Results & Data ([facility]) Vital Signs (Past 12 Hours) Vital Signs Temp Pulse Resp BP Pulse Ox 11/09/20 07:05 65 24 93 11/09/20 07:00 36.5 C 66 86/36 L 92 11/09/20 06:00 36.4 C L 66 112/49 L 94 11/09/20 05:01 36.5 C 115/54 L 92 11/09/20 05:00 36.5 C 11/09/20 04:03 64 20 92 11/09/20 04:01 36.5 C 68 158/76 H 99 12/22/20 04:00 36.5 C 70 97 11/09/20 03:00 36.6 C 67 115/58 L 92 11/09/20 02:00 36.6 C 64 123/61 93 11/09/20 01:00 36.7 C 66 132/56 L 92 11/09/20 00:00 36.7 C 67 115/52 L 92 11/08/20 23:36 66 24 91 11/08/20 23:00 36.8 C 66 115/55 L 92 11/08/20 22:00 36.9 C 69 104/57 L 92 Laboratory Results CBC 11/09/20 Range/Units 06:05 WBC 13.52 H (4.8-10.8) K/uL RBC 3.04 L (4.2-5.4) M/uL Hgb 9.9 L (12.0-16.0) g/dL Hct 30.4 L (37-47) % Plt Count 310 (130-400) K/uL Neut # (Auto) 11.24 H (1.4-6.5) K/uL Lymph # (Auto) 0.71 L (1.2-3.4) K/uL [place] # (Auto) 0.65 H (0.11-0.59) K/uL Eos # (Auto) 0.19 (0-0.5) K/uL Baso # (Auto) 0.03 (0-0.2) K/uL Comprehensive Metabolic Panel 11/09/20 Range/Units 06:05 Sodium 134 L (136-145) mmol/L Potassium 3.7 D (3.5-5.1) mmol/L Chloride 94 L (98-107) mmol/L Carbon Dioxide 38 H (21-32) mmol/L BUN 31 H (7-18) mg/dl Creatinine 0.24 L (0.6-1.2) mg/dl Glucose 129 H (70-99) mg/dl Calcium 8.7 (8.5-10.1) mg/dl Intake and Output 11/08/20 11/09/20 11/09/20 22:59 06:59 14:59 Intake Total 904.354 / 2269.256 1123.61 / 2269.256 600.117 / 600.117 Output Total 1000 / 4650 1050 / 4650 Balance -95.646 / -2380.744 73.61 / -2380.744 600.117 / 600.117 Intake: IV 574.354 / 1399.256 583.61 / 1399.256 600.117 / 600.117 NEXTERONE / D5W 360 mg In 200 397.617 / 397.617 ml @ 33.3 mls/hr IV .Q6H1M HARISH Rx#:[id number] BREVIBLOC 2,500 mg In 250 ml @ 186.187 / 353.227 167.04 / 353.227 30 MCG/KG/MIN 19.17 mls/hr IV . Q13H3M HARISH Rx#:[id number] Diamox 250 mg In D5 100 ml @ 102.5 / 205.0 102.5 / 102.5 100 mls/hr IV BID HARISH Rx#: [id number] fentaNYL DRIP 1,250 mcg In 250 185.667 / 435.667 250 / 435.667 ml @ 125 MCG/HR 25 mls/hr IV . Q10H HARISH Rx#:[id number] DIPRIVAN 1,000 mg In 100 ml @ 100 / 335.362 166.57 / 335.362 100 / 100 20 MCG/KG/MIN 12.72 mls/hr IV . Q7H52M HARISH Rx#:[id number] Oral 480 / 480 Tube Feeding 240 / 300 60 / 300 Tube Irrigant 90 / 90 Output: Urine Amount (Catheter) 1000 / 4650 1050 / 4650 Rincon/Indwelling 1000 / 4650 1050 / 4650 Other: Weight 104.8 kg 106.1 kg Weight Measurement Method Built in [facility] Diagnostic Findings Telemetry: Sinus rhythm rate 60-70, no significant arrhythmias overnight. PG Care Time/CCT Total # of Minutes Spent Total Time Spent with Patient: Total time spent is greater than 50% in coordination of care (as documented) at patient's floor/unit and/or counseling patient: Coding Level of Care Code 11992 Subseq Hosp Care Lvl 2 Diagnoses Atrial fibrillation I48.91
[2020-11-09] MEDS: cefTRIAXone SODIUM 2,000 MG in DEXTROSE 5% 50 ML IV SCH (10:13)
[2020-11-09] MEDS ORDERED: DEXAMETHASONE SOD PHOSPHATE 4 MG in SYRINGE 0 ML IV ONE (11:00)
--- NOTE | 2020-11-09 11:05 | Critical Care Progress Note ---
Date of Service November 09, 2020 Assessment & Plan (1) 2019 novel coronavirus–infected pneumonia (NCIP)#8211;infected pneumonia (NCIP): Impression: 69-year-old female with severe acute hypoxemic respiratory failure intubated due to novel coronavirus with ARDS now status post tracheostomy. PLAN: Neuro: Still on propofol and fentanyl, actively trying to wean it off We will consider Seroquel if the patient still has bouts of agitation. QTC 442 Continue with oxycodone 5 mg as needed Resp: Trach dependent respiratory failure secondary to COVID-19 pneumonia Patient got 10 days of dexamethasone. She is still on high PEEP. Patient was started on ARDS protocol 20 mg of Decadron which was completed today. Complete 4 more days of 10 mg of Decadron and then stop. ARDS secondary to coronavirus infection. Wean PEEP and FiO2 to keep PO2 greater than 90% CV: History of A. fib with SVTs Patient has autonomic dysfunction when it comes to high blood pressure. Going up to 200s requiring medications going down into 80s systolic requiring pressors -Uncontrolled hypertension Currently on esmolol drip to control the heart rate as well as blood pressure. ID: Pansensitive Klebsiella from her sputum culture. Continue rocephin. Previously on merrem. Continue with total 7 days of Rocephin Urine cultures were growing group C strep from 10/15/2020 which were treated. COVID-19 pneumonia: S/p treatment GI/Nutrition: NG tube is in place. Continue tube feeds. She will need a PEG tube later which can be placed even at LTACH C/w MiraLAX as needed. Heme: Monitor H&H Endocrine: Glycemic control per protocol. Continue Synthroid Code Status: DNR Disposition: ICU at this time and she will likely need LTAC placement in the near future. --Prophylaxis VTE: Lovenox GI: Pepcid Lines:Left subclavian placed 10/27 arterial line placed 10/27, positive Rincon Diet: Tube feeds Plan: In and out: -2.2 L urine output 4.6 L ABG 7.37/71/66 on PEEP of 12, 60% Went down on PEEP to 10. Keep O2 saturation greater than 88% Chest x-ray shows diffuse infiltrates bilaterally still. Continue with Diamox. Keep an eye on pH. If it goes below 7.30, will hold Diamox. Patient is on amiodarone drip currently to help with the heart rate. Esmolol drip is also going on. We will start the patient on metoprolol 5 mg IV every 6 hours so that we can titrate off the esmolol drip. Hydralazine 50 mg every 8 hours also has been added. Blood pressure is better controlled compared to yesterday. Patient still has bouts of agitation/restlessness where her respiratory goes into high 30s. Disposition will be LTAC when bed is available. Given the patient has subclavian line since 10/27/2020 we will try to get a PICC line in and take the subclavian line out. Given the patient is diuresing a lot we will continue with Rincon for the time being. Plan is to remove the Rincon in the next 24-48 hours. I spoke with rickiruby Lopez (POA) at [phone] as well as sister Holger [phone]. Both were updated regarding the patient's current condition and the prognosis. Niruby who is the POA understands and would like the patient to be DNR/no CPR. Regarding the goals of care of the patient. They will make a decision regarding possible comfort measures if there is no improvement in the near future. All questions inquiries of patient's family were answered in depth. I have personally spent 47 minutes of critical care time in the direct management of this patient. This is a life/limb threatening event. This includes time spent evaluating patient, direct bedside care, chart review, placing orders, interpretation of diagnostic studies, discussion with consultants, patient, and family members, as well as other required patient management activities. This time is exclusive of all separately billable procedures, and teaching time and separate from and in addition to any other critical care service time. Admission and Anticipated Discharge Date Admission Date: October 15, 2020 Subjective Patient seen and examined at bedside. On propofol 20, fentanyl 125, esmolol and amiodarone drip. Patient was breathing at the rate of 26 at the time of examination with backup respiratory rate of 20 She is getting good tidal volumes. Patient is now following commands. Afebrile in the last 24 hours Review of Systems Review of Systems: Unobtainable due to mental health condition and Unobtainable due to cognitive status Physical Exam Physical Exam: Constitutional: No acute distress HEENT: PERRLA, positive trach Respiratory system: Decreased air entry bilaterally, no wheeze, no rhonchi positive crackles bilaterally CVS: S1-S2 positive, no murmurs or gallops Abdomen: Soft, nontender, nondistended, positive bowel sounds x4 Extremities: +2 pulses bilaterally radialis/ dorsalis pedis, no cyanosis, no edema Neuro: Sedated, positive corneal, positive gag, breathing over the vent Psych: Unable to assess G/U: Positive Rincon Skin: no rashes, warm and dry Lymphatic: no cervical or axillary lymphadenopathy Results & Data Results & [facility] ([facility]) Vital Signs (Past 12 Hours) Vital Signs Temp Pulse Resp BP Pulse Ox 11/09/20 09:00 36.7 C 68 116/47 L 92 11/09/20 08:01 36.5 C 67 110/57 L 94 11/09/20 08:00 36.5 C 67 11/09/20 07:05 65 24 93 11/09/20 07:00 36.5 C 66 86/36 L 92 11/09/20 06:00 36.4 C L 66 112/49 L 94 11/09/20 05:01 36.5 C 115/54 L 92 11/09/20 05:00 36.5 C 11/09/20 04:03 64 20 92 11/09/20 04:01 36.5 C 68 158/76 H 99 11/09/20 04:00 36.5 C 70 97 11/09/20 03:00 36.6 C 67 115/58 L 92 11/09/20 02:00 36.6 C 64 123/61 93 11/09/20 01:00 36.7 C 66 132/56 L 92 11/09/20 00:00 36.7 C 67 115/52 L 92 11/08/20 23:36 66 24 91 11/09/20 06:05 11/09/20 06:05 Coding Level of Care Code Critical Care 1st 30-74 mins Diagnoses 2019 novel coronavirus–infected pneumonia (NCIP)#8211;infected pneumonia (NCIP) U07.1; J12.89 Time Spent (min) 47
[2020-11-09] MEDS: METOPROLOL TARTRATE 1 MG/ML VIAL IV SCH ×3 (11:32→23:48)
[2020-11-09] MEDS ORDERED: hydrALAZINE TAB 50 MG TAB NG SCH (14:00)
[2020-11-09] MEDS: PEPTAMEN INTENSE VHP 1.0 CAL 1,000 ML BAG OG SCH (14:16)
[2020-11-09] MEDS: ASPIRIN 81 MG CHEW PO SCH (20:17)
[2020-11-09] MEDS: oxyCODONE HCL SOLN 5 MG/5 ML UDC PO SCH (20:20)
[2020-11-09] MEDS: hydrALAZINE TAB 50 MG TAB NG SCH (22:17)
[2020-11-10] MEDS: propofoL 1,000 MG/100 ML VIAL IV SCH ×8 (03:00→23:05)
[2020-11-10] MEDS: INSULIN ASPART 100 UNITS/ML 3 ML PEN SC SCH ×5 (03:49→20:28)
[2020-11-10] MEDS: ARTIFICIAL TEARS OP OINT 3.5 GM TUBE OP SCH ×5 (03:50→20:29)
[2020-11-10 03:59] LABS: iSTAT Art Bld Gas pCO2 Correct 60 mmHg (35-46); iSTAT Art Bld Gas pH Corrected 7.345 (7.35-7.45); iSTAT Arterial Blood Gas HCO3 33 meg/L (19-24); iSTAT Arterial Blood Gas pCO2 59 mmHg (35-46); iSTAT Arterial Blood Gas pH 7.35 (7.35-7.45); iSTAT Arterial Blood Gas pO2 79 mmHg (80-95); iSTAT Arterial Blood Gas pO2 C 80; iSTAT Carbon Dioxide 34 mmol/L (24-31); iSTAT Hematocrit 36 % (37-47); iSTAT Hemoglobin 12.2 g/dl (12.0-16.0); iSTAT Potassium 3.5 mmol/L (3.3-5.0); iSTAT Site Art Line; iSTAT Sodium 135 mmol/L (135-144)
[2020-11-10] MEDS: METOPROLOL TARTRATE 1 MG/ML VIAL IV SCH (05:38)
[2020-11-10] MEDS: hydrALAZINE TAB 50 MG TAB NG SCH ×3 (05:38→22:10)
[2020-11-10] MEDS: LEVOTHYROXINE SODIUM 75 MCG TABLET PO SCH (05:39)
[2020-11-10 06:24] LABS: Hematocrit (blood only) 31.5 % (37-47); Mean Corpuscular Hemoglobin 31.7 pg (25-34); Mean Corpuscular Hgb Conc 31.7 g/dL (32-36); Mean Platelet Volume 9.5 fL (7.4-10.4); Nucleated RBC # (auto) 0.04 K/uL (0-0); Nucleated RBC % (auto) 0.2 %; Platelet Count 355 K/uL (130-400); RDW Coefficient of Variation 15.1 % (11.5-14.5); RDW Standard Deviation 53.7 fL (36.4-46.3); Red Blood Count 3.15 M/uL (4.2-5.4); White Blood Count 16.27 K/uL (4.8-10.8)
[2020-11-10 06:55] LABS: Calcium 8.8 mg/dl (8.5-10.1); Creatinine Clr Calc Pharmacy 184.9 ml/min; Est GFR (African American) 130.9; Est GFR (Non-African American) 112.9; Magnesium 2.4 mg/dl (1.8-2.4); Potassium 3.3 mmol/L (3.5-5.1)
[2020-11-10 06:56] LABS: Phosphorus 2.9 mg/dl (2.5-4.9)
[2020-11-10] MEDS ORDERED: METOPROLOL TARTRATE 1 MG/ML VIAL IV PRN (08:06)
[2020-11-10] MEDS: fentaNYL DRIP 1,250 MCG/250 ML BAG IV SCH ×5 (08:09→11:48)
[2020-11-10] MEDS: FAMOTIDINE 20 MG in SYRINGE 3 ML IV SCH ×2 (08:31→20:30)
[2020-11-10] MEDS: acetaZOLAMIDE 250 MG in DEXTROSE 5% 100 ML IV SCH ×2 (08:31→21:36)
[2020-11-10] MEDS: oxyCODONE HCL SOLN 5 MG/5 ML UDC PO SCH ×3 (08:32→20:30)
[2020-11-10] MEDS: cefTRIAXone SODIUM 2,000 MG in DEXTROSE 5% 50 ML IV SCH (08:32)
[2020-11-10] MEDS: LACTULOSE SYRUP 20 GM/30 ML UDC PO SCH (08:32)
[2020-11-10] MEDS: amLODIPine BESYLATE 5 MG TAB PO SCH (08:32)
[2020-11-10] MEDS: ROSUVASTATIN CALCIUM 5 MG TAB PO SCH (08:33)
[2020-11-10] MEDS: DEXAMETHASONE SOD PHOSPHATE 10 MG in SYRINGE 0 ML IV SCH (08:34)
[2020-11-10] MEDS: ICU ELECTROLYTE REPLACEMENT PROTOCOL SCH ×2 (08:35→12:44)
[2020-11-10] MEDS: ENOXAPARIN INJ 40 MG/0.4 ML SYR SQ SCH ×2 (08:35→18:38)
[2020-11-10] MEDS: AMIODARONE / D5W 360 MG/200 ML BAG IV SCH (08:47)
[2020-11-10] MEDS: POTASSIUM CHLORIDE / WTR 20 MEQ/100 ML PLCT IV SCH ×3 (08:57→13:19)
[2020-11-10] MEDS: METOPROLOL TARTRATE 25 MG TAB PO SCH ×2 (08:58→20:29)
[2020-11-10] MEDS: ESMOLOL / NSS 2,500 MG/250 ML BAG IV SCH (09:07)
[2020-11-10] MEDS: PEPTAMEN INTENSE VHP 1.0 CAL 1,000 ML BAG OG SCH (09:45)
--- NOTE | 2020-11-10 10:04 | XRay Report ---
SINGLE VIEW CHEST CLINICAL HISTORY: Respiratory failure. FINDINGS: An AP, portable, semierect chest radiograph is compared to study dated 11/09/2020. Correlat ion is made with chest CT dated 10/15/2020. An enteric tube, a tracheostomy, and a left subclavian ce ntral venous catheter are unchanged in position. The cardiomediastinal silhouette is unremarkable not ing atherosclerotic calcification of the thoracic aorta. Diffuse airspace consolidation throughout anne th lungs is similar to yesterday. No large pleural effusion or pneumothorax is seen. The skeletal str uctures are osteopenic. The bony thorax is grossly intact. IMPRESSION: 1. Stable lines and tubes. 2. Diffuse/multifocal airspace consolidation is unchanged from yesterday. ACT 112: Negative or not required by law. Electronically signed by: Steven Chavez M.D. 11/10/2020 10:03 AM
[2020-11-10] MEDS ORDERED: fentaNYL citrate 100 MCG/2 ML VIAL IV PRN (11:00)
[2020-11-10] MEDS: [UNRECOGNIZED DRUG - REMARK] SCH ×4 (11:21→22:11)
[2020-11-10] MEDS: MULTI VIT W/MINERALS LIQUID 15 ML UDP PO SCH (11:24)
--- NOTE | 2020-11-10 11:51 | Cardiology Progress Note ---
Date of Service November 10, 2020 Assessment & Plan (1) Paroxysmal A-fib: See Dr. Garcia's note from yesterday. Basically, atrial fibrillation has been transient and improving (no significant episodes overnight). Reasonable to stop amiodarone, restart if recurrent atrial fibrillation which is more than a few minutes. No immediate need for full anticoagulation, as noted by Dr. Garcia if she had episodes lasting 12 to 24 hours or more would then fully anticoagulate. Will sign off, please contact if further dysrhythmias or other cardiac issues. Thank you. (2) Acute respiratory failure with hypoxia: Admission and Anticipated Discharge Date Admission Date: October 15, 2020 Subjective Patient on ventilator in Covid unit. Amiodarone was discontinued this morning. Rhythm was sinus with PACs overnight, appropriate heart rate. No further paroxysmal atrial fibrillation. Physical Exam Physical Exam: Not examined (Covid patient in isolation) Results & Data ([facility]) Laboratory Results Potassium 3.3. Magnesium 2.4. Creatinine 0.34. PG Care Time/CCT Total # of Minutes Spent Total Time Spent with Patient: Total time spent is greater than 50% in coordination of care (as documented) at patient's floor/unit and/or counseling patient: Coding Level of Care Code 04684 Subseq Hosp Care Lvl 2 Diagnoses Paroxysmal A-fib I48.0 Acute respiratory failure with hypoxia J96.01
--- NOTE | 2020-11-10 14:32 | Critical Care Progress Note ---
Date of Service November 10, 2020 Assessment & Plan (1) 2019 novel coronavirus–infected pneumonia (NCIP)#8211;infected pneumonia (NCIP): Impression: 69-year-old female with severe acute hypoxemic respiratory failure intubated due to novel coronavirus with ARDS now status post tracheostomy. PLAN: Neuro: Still on propofol and fentanyl, actively trying to wean it off We will consider Seroquel if the patient still has bouts of agitation. QTC 442 Continue with oxycodone 5 mg as needed Resp: Trach dependent respiratory failure secondary to COVID-19 pneumonia Patient got 10 days of dexamethasone. She is still on high PEEP. Patient was started on ARDS protocol 20 mg of Decadron which was completed today. Continue with 10 mg of Decadron till 11/12/2020 which will be total 5 days. ARDS secondary to coronavirus infection. Wean PEEP and FiO2 to keep PO2 greater than 90% CV: History of A. fib with SVTs Patient has autonomic dysfunction when it comes to high blood pressure. Going up to 200s requiring medications going down into 80s systolic requiring pressors TSH: 0.9 within normal limit 11/10/2020 -Hypertension Continue with blood pressure medication ID: Pansensitive Klebsiella from her sputum culture. Continue rocephin. Previously on merrem. Continue with total 7 days of Rocephin Urine cultures were growing group C strep from 10/15/2020 which were treated. COVID-19 pneumonia: S/p treatment GI/Nutrition: NG tube is in place. Continue tube feeds. She will need a PEG tube later which can be placed even at LTACH C/w MiraLAX as needed. Heme: Monitor H&H Endocrine: Glycemic control per protocol. Continue Synthroid Code Status: DNR Disposition: ICU at this time and she will likely need LTAC placement in the near future. --Prophylaxis VTE: Lovenox GI: Pepcid Lines:Left subclavian placed 10/27 arterial line placed 10/27 --> DC'd 11/09/2020, positive Rincon Diet: Tube feeds Plan: In and out: -2.2 L urine output 4.6 L ABG 7.35/59/79 on PEEP of 10, 60% DC amiodarone drip. Start metoprolol 75 mg p.o. twice daily with holding parameters Change IV metoprolol to as needed heart rate greater than 130 DC Rincon. Last dose of Diamox will be later today. Hypokalemia being replaced We will hold the tube feeds as patient is throwing up. Ms Lopez (POA) at [phone], sister Holger [phone]. I have personally spent 43 minutes of critical care time in the direct management of this patient. This is a life/limb threatening event. This includes time spent evaluating patient, direct bedside care, chart review, placing orders, interpretation of diagnostic studies, discussion with consultants, patient, and family members, as well as other required patient management activities. This time is exclusive of all separately billable procedures, and teaching time and separate from and in addition to any other critical care service time. Admission and Anticipated Discharge Date Admission Date: October 15, 2020 Subjective Patient seen and examined at bedside. No acute distress. On propofol and fentanyl. Patient is off a small drip. Heart rate was in the 60s. Saturation 91 on PEEP 10, 60% FiO2 Has been afebrile. Breathing in the high 20s Opening her eyes but not following any commands, no eye tracking. Review of Systems Review of Systems: Unobtainable due to mental health condition and Unobtainable due to cognitive status Physical Exam Physical Exam: Constitutional: No acute distress HEENT: PERRLA, positive trach Respiratory system: Decreased air entry bilaterally, no wheeze, no rhonchi positive crackles bilaterally CVS: S1-S2 positive, no murmurs or gallops Abdomen: Soft, nontender, nondistended, positive bowel sounds x4 Extremities: +2 pulses bilaterally radialis/ dorsalis pedis, no cyanosis, no edema Neuro: Sedated, positive corneal, positive gag, breathing over the vent Psych: Unable to assess G/U: Positive Rincon Skin: no rashes, warm and dry Lymphatic: no cervical or axillary lymphadenopathy Results & Data Results & Data ([facility]) Vital Signs (Past 12 Hours) Vital Signs Temp Pulse Resp BP Pulse Ox 11/10/20 12:00 37.1 C 75 143/69 H 89 L 11/10/20 11:34 32 H 11/10/20 11:00 36.9 C 73 145/66 H 91 11/10/20 10:00 36.9 C 70 123/58 L 91 11/10/20 09:00 36.8 C 77 140/64 91 11/10/20 08:00 36.8 C 82 148/69 H 89 L 11/10/20 07:58 36 H 11/10/20 07:00 36.7 C 82 157/74 H 89 L 11/10/20 06:01 36.6 C 70 158/69 H 92 11/10/20 06:00 36.7 C 68 89 L 11/10/20 05:38 73 131/58 L 11/10/20 05:00 37.1 C 57 L 98/45 L 92 11/10/20 04:00 37.1 C 59 L 92/49 L 92 11/10/20 03:35 62 26 H 92 11/10/20 03:00 37.2 C 64 87/45 L 94 11/10/20 05:46 11/10/20 05:46 Coding Level of Care Code Critical Care 1st 30-74 mins Diagnoses 2019 novel coronavirus–infected pneumonia (NCIP)#8211;infected pneumonia ([facility]) U07.1; J12.89 Time Spent (min) 43
[2020-11-10] MEDS: ASPIRIN 81 MG CHEW PO SCH (20:30)
[2020-11-10] MEDS ORDERED: acetaZOLAMIDE 250 MG TAB PO SCH (21:25)
[2020-11-11] MEDS: INSULIN ASPART 100 UNITS/ML 3 ML PEN SC SCH ×6 (00:13→20:31)
[2020-11-11] MEDS: ARTIFICIAL TEARS OP OINT 3.5 GM TUBE OP SCH ×7 (00:13→23:36)
[2020-11-11] MEDS: fentaNYL DRIP 1,250 MCG/250 ML BAG IV SCH ×2 (02:59→04:14)
[2020-11-11 04:26] LABS: iSTAT Allen Test Pass; iSTAT Arterial Blood Gas HCO3 29 meg/L (19-24); iSTAT Arterial Blood Gas pCO2 46 mmHg (35-46); iSTAT Arterial Blood Gas pH 7.41 (7.35-7.45); iSTAT Arterial Blood Gas pO2 56 mmHg (80-95); iSTAT Carbon Dioxide 31 mmol/L (24-31); iSTAT Site R Radial
[2020-11-11] MEDS: hydrALAZINE TAB 50 MG TAB NG SCH ×3 (06:02→21:41)
[2020-11-11] MEDS: LEVOTHYROXINE SODIUM 75 MCG TABLET PO SCH (06:02)
[2020-11-11] MEDS ORDERED: PROPOFOL BOLUS FROM BAG IV PRN (06:03)
[2020-11-11] MEDS: ENOXAPARIN INJ 40 MG/0.4 ML SYR SQ SCH ×2 (06:03→19:51)
[2020-11-11] MEDS ORDERED: STAT IV Infusion **Titration per Protocol STA (06:03)
[2020-11-11] MEDS: propofoL 1,000 MG/100 ML VIAL IV SCH ×2 (06:29→06:33)
[2020-11-11] MEDS: DEXAMETHASONE SOD PHOSPHATE 10 MG in SYRINGE 0 ML IV SCH (07:53)
[2020-11-11] MEDS: LACTULOSE SYRUP 20 GM/30 ML UDC PO SCH (07:54)
[2020-11-11] MEDS: oxyCODONE HCL SOLN 5 MG/5 ML UDC PO SCH ×3 (07:58→19:50)
[2020-11-11] MEDS: amLODIPine BESYLATE 5 MG TAB PO SCH (07:59)
[2020-11-11] MEDS: METOPROLOL TARTRATE 25 MG TAB PO SCH ×2 (07:59→19:50)
[2020-11-11] MEDS: FAMOTIDINE 20 MG in SYRINGE 3 ML IV SCH ×2 (08:01→19:50)
[2020-11-11 08:41] LABS: Hematocrit (blood only) 32.2 % (37-47); Hemoglobin 10.5 g/dL (12.0-16.0); Mean Corpuscular Hemoglobin 32.2 pg (25-34); Mean Corpuscular Hgb Conc 32.6 g/dL (32-36); Mean Corpuscular Volume 98.8 fL (80-100); Mean Platelet Volume 9.1 fL (7.4-10.4); Nucleated RBC # (auto) 0.05 K/uL (0-0); Nucleated RBC % (auto) 0.3 %; Platelet Count 425 K/uL (130-400); RDW Coefficient of Variation 15.9 % (11.5-14.5); RDW Standard Deviation 56.2 fL (36.4-46.3); Red Blood Count 3.26 M/uL (4.2-5.4); White Blood Count 15.73 K/uL (4.8-10.8)
--- NOTE | 2020-11-11 08:56 | XRay Report ---
XR chest 1V portable CLINICAL HISTORY: Respiratory failure COMPARISON STUDY: 11/10/2020 FINDINGS: Tracheostomy tube is again visualized. There is a left subclavian central venous catheter. A nasogastric tube passes the stomach. There are persistent bilateral pulmonary airspace opacities si milar to the preceding study. There are no significant pleural effusions.[ IMPRESSION: Persistent bilateral pulmonary airspace opacities similar to the preceding study. ACT 112: Negative or not required by law. Electronically signed by: Sheldon Saunders M.D. 11/11/2020 8:55 AM
[2020-11-11 09:15] LABS: Albumin Globulin Ratio 0.5 (0.9-2); Albumin Level 2.1 gm/dl (3.4-5.0); Bilirubin,Total 0.5 mg/dl (0.2-1); Calcium 8.7 mg/dl (8.5-10.1); Creatinine Clr Calc Pharmacy 192.4 ml/min; Est GFR (African American) 132.1; Globulin 4.4 gm/dl (2.5-4.0); Magnesium 2.2 mg/dl (1.8-2.4); Phosphorus 2.8 mg/dl (2.5-4.9); Potassium 3.8 mmol/L (3.5-5.1); Total Protein 6.5 gm/dl (6.4-8.2)
[2020-11-11] MEDS: cefTRIAXone SODIUM 2,000 MG in DEXTROSE 5% 50 ML IV SCH (09:48)
[2020-11-11] MEDS: PEPTAMEN INTENSE VHP 1.0 CAL 1,000 ML BAG OG SCH (10:29)
[2020-11-11] MEDS: fentaNYL citrate 100 MCG/2 ML VIAL IV PRN ×8 (12:00→23:35)
[2020-11-11] MEDS: MULTI VIT W/MINERALS LIQUID 15 ML UDP PO SCH (12:10)
--- NOTE | 2020-11-11 15:13 | Critical Care Progress Note ---
Date of Service November 11, 2020 Assessment & Plan (1) 2019 novel coronavirus–infected pneumonia (NCIP)#8211;infected pneumonia (NCIP): Impression: 69-year-old female with severe acute hypoxemic respiratory failure intubated due to novel coronavirus with ARDS now status post tracheostomy. PLAN: Neuro: Propofol and fentanyl, actively trying to wean it off We will consider Seroquel if the patient still has bouts of agitation. QTC 442 Resp: Trach dependent respiratory failure secondary to COVID-19 pneumonia Patient got 10 days of dexamethasone. She is still on high PEEP. Patient was started on ARDS protocol 20 mg of Decadron which was completed today. Continue with 10 mg of Decadron till 11/12/2020 which will be total 5 days. ARDS secondary to coronavirus infection. Wean PEEP and FiO2 to keep PO2 greater than 90% CV: History of A. fib with SVTs Patient has autonomic dysfunction when it comes to high blood pressure. Going up to 200s requiring medications going down into 80s systolic requiring pressors TSH: 0.9 within normal limit 11/10/2020 -Hypertension Continue with blood pressure medication ID: Pansensitive Klebsiella from her sputum culture. Continue rocephin. Previously on merrem. Continue with total 7 days of Rocephin Urine cultures were growing group C strep from 10/15/2020 which were treated. COVID-19 pneumonia: S/p treatment GI/Nutrition: NG tube is in place. Continue tube feeds. She will need a PEG tube later which can be placed even at LTACH C/w MiraLAX as needed. Heme: Monitor H&H Endocrine: Glycemic control per protocol. Continue Synthroid Code Status: DNR Disposition: ICU at this time and she will likely need LTAC placement in the near future. --Prophylaxis VTE: Lovenox GI: Pepcid Lines:Left subclavian placed 10/27 arterial line placed 10/27 --> DC'd 11/09/2020, positive Rincon Diet: Tube feeds Plan: In and out: -279 urine output 1.9L ABG 7.4/46/56 on PEEP of 10, 60% Patient was on very low-dose of fentanyl and propofol. We will just turn it off. Continue with fentanyl 50 MCG every hour as needed distress. Will add lorazepam 0.25 twice daily as patient was taking it at home. We will decrease hydralazine to 50 mg 3 times daily as the blood pressure is fairly controlled. Patient's heart rate has been in low 60s. If it is persistently low will decrease the metoprolol to 50 mg twice daily. Overall prognosis is guarded. Recommendation towards comfort measures made to the family. Ms Lopez (POA) at [phone] was called and updated regarding the patient's condition. sister Holger [phone]. I have personally spent 44 minutes of critical care time in the direct management of this patient. This is a life/limb threatening event. This includes time spent evaluating patient, direct bedside care, chart review, placing orders, interpretation of diagnostic studies, discussion with consultants, patient, and family members, as well as other required patient management activities. This time is exclusive of all separately billable procedures, and teaching time and separate from and in addition to any other critical care service time. Admission and Anticipated Discharge Date Admission Date: October 15, 2020 Subjective Patient seen and examined at bedside. No acute distress. Patient was breathing over the vent. She has been afebrile. She is on low-dose fentanyl and propofol. Nurse was at bedside when I was examining. Does not follow commands. Review of Systems Review of Systems: Unobtainable due to mental health condition and Unobtainable due to cognitive status Physical Exam Physical Exam: Constitutional: No acute distress HEENT: PERRLA, positive trach Respiratory system: Decreased air entry bilaterally, no wheeze, no rhonchi positive crackles bilaterally CVS: S1-S2 positive, no murmurs or gallops Abdomen: Soft, nontender, nondistended, positive bowel sounds x4 Extremities: +2 pulses bilaterally radialis/ dorsalis pedis, no cyanosis, no edema Neuro: Sedated, positive corneal, positive gag, breathing over the vent Psych: Unable to assess G/U: No Rincon Skin: no rashes, warm and dry Lymphatic: no cervical or axillary lymphadenopathy Results & Data Results & Data ([facility]) Vital Signs (Past 12 Hours) Vital Signs Temp Pulse Resp BP Pulse Ox 11/11/20 14:24 64 38 H 107/48 L 93 11/11/20 12:12 87 34 H 91 11/11/20 12:00 37.3 C 86 42 H 170/82 H 91 11/11/20 10:55 86 37 H 91 11/11/20 08:00 91 H 11/11/20 07:55 91 H 36 H 93 11/11/20 07:52 36.9 C 86 36 H 164/88 H 93 11/11/20 06:00 82 156/70 H 94 11/11/20 05:00 84 172/77 H 94 11/11/20 04:00 70 156/71 H 91 11/11/20 03:59 84 43 H 91 11/11/20 08:11 11/11/20 08:11 Coding Level of Care Code Critical Care 1st 30-74 mins Diagnoses 2019 novel coronavirus–infected pneumonia (NCIP)#8211;infected pneumonia (NCIP) U07.1; J12.89 Time Spent (min) 44
[2020-11-11] MEDS: ASPIRIN 81 MG CHEW PO SCH (19:51)
[2020-11-12] MEDS: INSULIN ASPART 100 UNITS/ML 3 ML PEN SC SCH ×6 (01:40→20:24)
[2020-11-12] MEDS: ARTIFICIAL TEARS OP OINT 3.5 GM TUBE OP SCH ×5 (04:52→20:19)
[2020-11-12] MEDS: fentaNYL citrate 100 MCG/2 ML VIAL IV PRN ×7 (05:30→20:17)
[2020-11-12] MEDS: hydrALAZINE TAB 50 MG TAB NG SCH ×3 (05:49→20:26)
[2020-11-12] MEDS: LEVOTHYROXINE SODIUM 75 MCG TABLET PO SCH (05:50)
[2020-11-12] MEDS: ENOXAPARIN INJ 40 MG/0.4 ML SYR SQ SCH ×2 (05:51→20:24)
[2020-11-12 06:57] LABS: Hematocrit (blood only) 31.5 % (37-47); Mean Corpuscular Hemoglobin 31.3 pg (25-34); Mean Corpuscular Hgb Conc 31.7 g/dL (32-36); Mean Corpuscular Volume 98.4 fL (80-100); Mean Platelet Volume 9.1 fL (7.4-10.4); Platelet Count 442 K/uL (130-400); RDW Standard Deviation 56.2 fL (36.4-46.3); White Blood Count 15.21 K/uL (4.8-10.8)
[2020-11-12 07:34] LABS: Allen Test Pos (Pos); Base Excess ABG 5.3 mEq/L (-9-1.8); HCO3 ABG 31 mmol/L (19-24); PCO2 ABG 49 mmHg (35-46); PO2 ABG 72 mmHg (80-95); pH ABG 7.41 (7.35-7.45)
[2020-11-12 07:34] LABS: ALC (manual) 0.27 K/uL (1.2-3.4); ANC (manual) 13.57 K/uL (1.4-6.5); Basophilic Stippling 1+; Eosinophils # (manual) 0.14 K/uL (0-0.5); Eosinophils % (manual) 0.9 %; Lymphocytes # (manual) 0.27 K/uL (1.2-3.4); Lymphocytes % (manual) 1.8 %; Metamyelocytes # (manual) 0.41 K/uL (0-0); Metamyelocytes % (manual) 2.7 %; Monocytes # (manual) 0.41 K/uL (0.11-0.59); Monocytes % (manual) 2.7 %; Myelocytes # (manual) 0.41 K/uL (0-0); Myelocytes % (manual) 2.7 %; Neutrophils # (manual) 13.57 K/uL (1.4-6.5); Neutrophils % (manual) 89.2 %; Polychromasia 1+
[2020-11-12 07:39] LABS: BUN Creatinine Ratio 86.1 (10-20); Calcium 8.6 mg/dl (8.5-10.1); Creatinine Clr Calc Pharmacy 243.4 ml/min; Est GFR (African American) 142.9; Est GFR (Non-African American) 123.3; Magnesium 2.4 mg/dl (1.8-2.4)
[2020-11-12 07:40] LABS: Phosphorus 2.2 mg/dl (2.5-4.9)
[2020-11-12] MEDS: FAMOTIDINE 20 MG in SYRINGE 3 ML IV SCH ×2 (08:19→20:34)
[2020-11-12] MEDS: DEXAMETHASONE SOD PHOSPHATE 10 MG in SYRINGE 0 ML IV SCH (08:19)
[2020-11-12] MEDS: LACTULOSE SYRUP 20 GM/30 ML UDC PO SCH ×2 (08:21→20:25)
[2020-11-12] MEDS: amLODIPine BESYLATE 5 MG TAB PO SCH (08:22)
[2020-11-12] MEDS: METOPROLOL TARTRATE 25 MG TAB PO SCH ×2 (08:23→20:26)
[2020-11-12] MEDS: ROSUVASTATIN CALCIUM 5 MG TAB PO SCH (08:23)
[2020-11-12] MEDS ORDERED: POTASSIUM PHOS 3 MMOL/1 ML INFUSION IV STA (08:28)
[2020-11-12] MEDS: oxyCODONE HCL SOLN 5 MG/5 ML UDC PO SCH ×3 (08:29→20:34)
[2020-11-12] MEDS ORDERED: acetaZOLAMIDE 250 MG in SYRINGE 0 ML IV ONE (09:00)
[2020-11-12] MEDS: clonazePAM 0.5 MG TAB PO SCH ×2 (09:24→20:34)
[2020-11-12] MEDS: cefTRIAXone SODIUM 2,000 MG in DEXTROSE 5% 50 ML IV SCH (09:28)
[2020-11-12] MEDS ORDERED: POTASSIUM PHOSPHATE 15 MMOL in SODIUM CHLORIDE 0.9% 250 ML IV ONE (09:30)
[2020-11-12] MEDS ORDERED: acetaZOLAMIDE 250 MG TAB PO ONE (10:00)
[2020-11-12] MEDS: MULTI VIT W/MINERALS LIQUID 15 ML UDP PO SCH (12:28)
[2020-11-12] MEDS ORDERED: fentaNYL citrate 100 MCG/2 ML VIAL IV STA (12:57)
--- NOTE | 2020-11-12 13:22 | Critical Care Progress Note ---
Date of Service November 12, 2020 Assessment & Plan (1) 2019 novel coronavirus–infected pneumonia (NCIP)#8211;infected pneumonia (NCIP): Impression: 69-year-old female with severe acute hypoxemic respiratory failure intubated due to novel coronavirus with ARDS now status post tracheostomy. PLAN: Neuro: Off of propofol and fentanyl drip since 11/11/2020 We will consider Seroquel if the patient still has bouts of agitation. QTC 442 Resp: Trach dependent respiratory failure secondary to COVID-19 pneumonia Patient got 10 days of dexamethasone. She is still on high PEEP. Patient was started on ARDS protocol 20 mg of Decadron which was completed today. Continue with 10 mg of Decadron till 11/12/2020 which will be total 5 days. S/p ARDS secondary to coronavirus infection. Wean PEEP and FiO2 to keep PO2 greater than 90% CV: History of A. fib with SVTs TSH: 0.9 within normal limit 11/10/2020 -Hypertension Continue with blood pressure medication ID: Pansensitive Klebsiella from her sputum culture. Continue rocephin. Previously on merrem. Rocephin, last dose 11/13/2020 Urine cultures were growing group C strep from 10/15/2020 which were treated. COVID-19 pneumonia: S/p treatment GI/Nutrition: NG tube is in place. Continue tube feeds. She will need a PEG tube later which can be placed even at LTACH C/w lactulose Heme: Monitor H&H Endocrine: Glycemic control per protocol. Continue Synthroid Code Status: DNR Disposition: ICU at this time and she will likely need LTAC placement in the near future. --Prophylaxis VTE: Lovenox GI: Pepcid Lines:Left subclavian placed 10/27 arterial line placed 10/27 --> DC'd 11/09/2020, no Rincon--> DC'd 11/10/2020 Diet: Tube feeds Plan: In and out: -413 urine output 1100ml ABG 7.4/46/56 on PEEP of 10, 60% Continue with fentanyl 50 MCG every hour as needed distress. Continue with clonazepam 0.5 twice daily Patient is still having bouts where she will go lay tachypneic. This could be from pain but she has been on oxycodone 10 mg every 8 as well as fentanyl 1 hours. Central hypoventilation might also playing a role here. As patient does not desaturate when she hyperventilates. Patient is getting adequate tidal volumes I do not think there is any issues with the trach. I did order a chest x-ray again today. Will add quetiapine 25 mg twice daily. Patient's QTC was 442 on 11/06/2020 Overall prognosis is guarded. Ms Lopez (POA) at [phone] sister Holger [phone]. I have personally spent 40 minutes of critical care time in the direct management of this patient. This is a life/limb threatening event. This includes time spent evaluating patient, direct bedside care, chart review, placing orders, interpretation of diagnostic studies, discussion with consultants, patient, and family members, as well as other required patient management activities. This time is exclusive of all separately billable procedures, and teaching time and separate from and in addition to any other critical care service time. Admission and Anticipated Discharge Date Admission Date: October 15, 2020 Subjective Patient seen and examined at bedside. Was on pressure support at the time of examination Not in any acute distress. Respiratory was in the high 20s. Patient was saturating 89% on 40% FiO2. Increased FiO2 to 50% she is on PEEP 5. Patient has been having these bouts of hyper apnea. It seems this is most likely central as she is adequately being treated for pain. Has been afebrile. Review of Systems 2 Review of Systems: Unobtainable due to mental health condition, Unobtainable due to cognitive status and Unobtainable due to endotracheal tube Physical Exam Physical Exam: Constitutional: No acute distress HEENT: PERRLA, positive trach Respiratory system: Decreased air entry bilaterally, no wheeze, no rhonchi positive crackles bilaterally CVS: S1-S2 positive, no murmurs or gallops Abdomen: Soft, nontender, nondistended, positive bowel sounds x4 Extremities: +2 pulses bilaterally radialis/ dorsalis pedis, no cyanosis, no edema Neuro: Sedated, positive corneal, positive gag, breathing over the vent Psych: Unable to assess G/U: No Rincon Skin: no rashes, warm and dry Lymphatic: no cervical or axillary lymphadenopathy Results & Data Results & Data ([facility]) Vital Signs (Past 12 Hours) Vital Signs Temp Pulse Resp BP Pulse Ox 11/12/20 12:00 77 31 H 89 L 11/12/20 11:25 74 40 H 90 11/12/20 07:51 83 21 93 11/12/20 06:00 80 140/69 92 11/12/20 05:00 87 161/72 H 94 11/12/20 04:53 81 160/70 H 92 11/12/20 04:50 81 36 H 93 11/12/20 04:00 37.4 C 99 H 189/81 H 92 11/12/20 03:00 83 153/69 H 94 11/12/20 02:00 90 153/62 H 93 11/12/20 06:25 11/12/20 06:25 Coding Level of Care Code Critical Care 1st 30-74 mins Diagnoses 2019 novel coronavirus–infected pneumonia (NCIP)#8211;infected pneumonia (NCIP) U07.1; J12.89 Time Spent (min) 40
--- NOTE | 2020-11-12 13:57 | XRay Report ---
XR chest 1V portable CLINICAL HISTORY: Respiratory failure. Follow-up study COMPARISON STUDY: 11/11/2020 FINDINGS: A tracheostomy tube is again visualized. There is a feeding tube within the stomach. There is a left subclavian central venous catheter unchanged in position. There are extensive bilateral pul monary airspace opacities relatively similar to the preceding study.[ IMPRESSION: Persistent extensive bilateral pulmonary airspace opacities, similar to the preceding fredy dy. ACT 112: Negative or not required by law. Electronically signed by: Sheldon Saunders M.D. 11/12/2020 1:56 PM
[2020-11-12] MEDS: oxyCODONE HCL SOLN 5 MG/5 ML UDC PO PRN (14:19)
[2020-11-12] MEDS: QUEtiapine FUMARATE 25 MG TABLET PO SCH ×2 (14:35→20:25)
[2020-11-12] MEDS: PEPTAMEN INTENSE VHP 1.0 CAL 1,000 ML BAG OG SCH (20:19)
[2020-11-12] MEDS: ASPIRIN 81 MG CHEW PO SCH (20:34)
--- NOTE | 2020-11-12 22:41 | Hospitalist Progress Note ---
Date of Service November 12, 2020 Assessment & Plan (1) Acute respiratory failure with hypoxia: Intubated on 10/27 after nearly two weeks of high flow and BIPAP ARDSnet settings with high PEEP and low FiO2 no real improvement in lung compliance when switching from supine to prone. She and her family agreed to intubation and [facility] ventilation. Intubated on 10/27. tracheostomy on 11/05 still ventilator dependent and requiring high PEEP high dose Decadron added for late ARDS with 20mg daily, then down to 10mg daily until 11/12, now can stop ultimate plan is for LTACH pain/sedation with Oxycodone 10 TID, Seroquel 25 q12, Fentanyl 50mcg q1 PRN tube feeds, ultimately will need a PEG which can be done at LTACH (2) Pneumonia due to COVID-19 virus: stopped Decadron 10/29, resumed higher dose Decadron for late ARDS, complete 11/12 completed course of Remdesivir, LD 10/19 convalescent plasma on 10/16 Prognosis remains poor, try to wean from ventilator looking into LTACH once more stable sputum culture with Klebsiella, treated with Rocephin (3) Atrial fibrillation: paroxysmal stable on metoprolol 75 BID was on amiodarone, now stopped not on full anticoagulation as afib has been brief, Lovenox 40 q12 continue on tele (4) Hypertension: sedation on metoprolol 75 q12, Hydralazine 50 q8, amlodipine 10mg daily (5) Metabolic acidosis: initiated Diamox, follow HCO3 levels, coming down, now Diamox held (6) Sepsis: Source - COVID-19 +/- possible bacterial PNA completed course of Levaquin sputum culture then with Klebsiella, on Rocephin (7) Prediabetes: HbA1C 5.9 in May. Glucose 129 on admission no longer on dexamethasone, easier to manage (8) Hyperlipidemia: Continue her usual rosuvastatin dosing via NG tube (9) GERD (gastroesophageal reflux disease): Continue her usual pantoprazole 40mg PO daily (10) Esophageal dysmotility: Aspiration precautions. (11) Hypothyroidism: TSH 1.31 in Aug. Continue levothyroxine 75 mcg PO daily (12) Anxiety: now on sedation (13) DVT prophylaxis: Lovenox Admission and Anticipated Discharge Date Admission Date: October 15, 2020 Subjective patient still requiring high PEEP, ventilator via tracheostomy no fever, BP elevated having periods of tachypnea, trying to treat pain with Oxycodone using Fentanyl PRN for sedation, Seroquel, Klonopin on tube feeds Review of Systems Review of Systems: Unobtainable due to reduced consciousness (tracheostomy) Physical Exam Constitutional: well developed, well nourished and + mechanically ventilated (supine, tracheostomy) Neck: trachea midline, no thyromegaly + tracheostomy present Respiratory: symmetric chest movement (ventilated) Auscultation: lungs clear to auscultation bilaterally Cardiovascular: RRR, no murmur, no edema Gastrointestinal (Abdomen): normal bowel sounds, soft, nontender, no hepatosplenomegaly Musculoskeletal: Head/Neck/Chest: normocephalic, head atraumatic and neck supple Extremities: extremities normal to inspection; no cyanosis and no clubbing Skin: no rashes, warm and dry Neurologic: + obtunded; no focal motor deficits Psychiatric: Orientation: + not alert Results & Data Results & Data ([facility]) Vital Signs (Past 12 Hours) Vital Signs Temp Pulse Resp BP Pulse Ox 11/12/20 21:10 69 26 H 94 11/12/20 20:01 78 152/64 H 94 11/12/20 20:00 74 93 11/12/20 19:00 60 120/49 L 95 11/12/20 18:00 57 L 92/52 L 94 11/12/20 17:41 71 30 H 93 11/12/20 17:00 58 L 120/53 L 94 11/12/20 16:00 37.4 C 64 95/42 L 92 11/12/20 15:01 74 104/60 91 11/12/20 14:00 86 173/90 H 92 11/12/20 13:00 91 H 58 H 140/80 96 11/12/20 12:01 83 52 H 179/88 H 90 11/12/20 12:00 77 31 H 89 L 11/12/20 11:25 74 40 H 90 11/12/20 11:00 77 137/71 92 Laboratory Results Laboratory Results - last 24 hr 11/12/20 11/12/20 11/12/20 00:22 04:24 06:25 WBC 15.21 H RBC 3.20 L Hgb 10.0 L Hct 31.5 L MCV 98.4 MCH 31.3 MCHC 31.7 L RDW Std Deviation 56.2 H RDW Coeff of Mary 16.0 H Plt Count 442 H MPV 9.1 Neutrophils % (Manual) 89.2 Lymphocytes % (Manual) 1.8 Monocytes % (Manual) 2.7 Eosinophils % (Manual) 0.9 Metamyelocytes % (Man) 2.7 Myelocytes % (Man) 2.7 Neutrophils # (Manual) 13.57 H Total Absolute Neuts 13.57 H Lymphocytes # (Manual) 0.27 L Total Abs Lymphocytes 0.27 L Monocytes # (Manual) 0.41 Eosinophils # (Manual) 0.14 Metamyelocytes # (Man) 0.41 H Myelocytes # (Manual) 0.41 H Polychromasia 1+ Basophilic Stippling 1+ ABG pH ABG pCO2 ABG pO2 ABG HCO3 ABG O2 Saturation ABG Base Excess Kishan Test Barometric Pressure Oxygen Given Sodium Potassium Chloride Carbon Dioxide Anion Gap BUN Creatinine Est Cr Clr Drug Dosing Est GFR ( Amer) Est GFR (Non-Af Amer) BUN/Creatinine Ratio Glucose POC Glucose 130 H 126 H Calcium Phosphorus Magnesium 11/12/20 11/12/20 11/12/20 06:25 07:17 08:17 WBC RBC Hgb Hct MCV MCH MCHC RDW Std Deviation RDW Coeff of Mary Plt Count MPV Neutrophils % (Manual) Lymphocytes % (Manual) Monocytes % (Manual) Eosinophils % (Manual) Metamyelocytes % (Man) Myelocytes % (Man) Neutrophils # (Manual) Total Absolute Neuts Lymphocytes # (Manual) Total Abs Lymphocytes Monocytes # (Manual) Eosinophils # (Manual) Metamyelocytes # (Man) Myelocytes # (Manual) Polychromasia Basophilic Stippling ABG pH 7.41 ABG pCO2 49 H ABG pO2 72 L ABG HCO3 31 H ABG O2 Saturation 94.0 ABG Base Excess 5.3 H Kishan Test Pos Barometric Pressure 723.0 Oxygen Given 50 Sodium 137 Potassium 4.0 Chloride 102 Carbon Dioxide 31 Anion Gap 4.0 BUN 22 H Creatinine 0.26 L Est Cr Clr Drug Dosing 243.4 Est GFR ( Amer) 142.9 Est GFR (Non-Af Amer) 123.3 BUN/Creatinine Ratio 86.1 H Glucose 141 H POC Glucose 151 H Calcium 8.6 Phosphorus 2.2 L Magnesium 2.4 11/12/20 11/12/20 11/12/20 12:11 16:55 20:22 WBC RBC Hgb Hct MCV MCH MCHC RDW Std Deviation RDW Coeff of Mary Plt Count MPV Neutrophils % (Manual) Lymphocytes % (Manual) Monocytes % (Manual) Eosinophils % (Manual) Metamyelocytes % (Man) Myelocytes % (Man) Neutrophils # (Manual) Total Absolute Neuts Lymphocytes # (Manual) Total Abs Lymphocytes Monocytes # (Manual) Eosinophils # (Manual) Metamyelocytes # (Man) Myelocytes # (Manual) Polychromasia Basophilic Stippling ABG pH ABG pCO2 ABG pO2 ABG HCO3 ABG O2 Saturation ABG Base Excess Kishan Test Barometric Pressure Oxygen Given Sodium Potassium Chloride Carbon Dioxide Anion Gap BUN Creatinine Est Cr Clr Drug Dosing Est GFR ( Amer) Est GFR (Non-Af Amer) BUN/Creatinine Ratio Glucose POC Glucose 178 H 159 H 129 H Calcium Phosphorus Magnesium Medications Administered Current Inpatient Medications Acetaminophen (Acetaminophen 325 Mg Tab) 650 mg PO Q4H PRN PRN Reason: Pain or Fever Stop: 11/14/20 20:32 Last Admin: 11/03/20 16:54 Dose: 650 mg Documented by: Al Hydrox/Mg Hydrox/Simethicone (Aluminum/Magnesium Susp 30 Ml Udc) 15 ml PO Q4H PRN PRN Reason: Dyspepsia Stop: 11/14/20 20:32 Amlodipine Besylate (Amlodipine Besylate 5 Mg Tab) 10 mg PO QAM HARISH Stop: 12/08/20 14:44 Last Admin: 11/12/20 08:22 Dose: 10 mg Documented by: Aspirin (Aspirin 81 Mg Chew) 81 mg PO HS HARISH Stop: 11/27/20 20:59 Last Admin: 11/12/20 20:34 Dose: 81 mg Documented by: Clonazepam (Clonazepam 0.5 Mg Tab) 0.5 mg PO BID HARISH Stop: 12/12/20 08:59 Last Admin: 11/12/20 20:34 Dose: 0.5 mg Documented by: Dextrose (Dextrose 50% 50 Ml Syringe) 25 - 50 ml IV UD PRN; Protocol PRN Reason: Hypoglycemia Protocol Stop: 11/14/20 20:32 Enoxaparin Sodium (Enoxaparin Inj 40 Mg/0.4 Ml Syr) 40 mg SQ Q12H HARISH Stop: 12/04/20 06:59 Last Admin: 11/12/20 20:24 Dose: 40 mg Documented by: Fentanyl Citrate (Fentanyl Citrate 100 Mcg/2 Ml Vial) 50 mcg IV Q1H PRN PRN Reason: Pain Stop: 11/25/20 12:19 Last Admin: 11/12/20 20:17 Dose: 50 mcg Documented by: Glucagon (Glucagon For Inj 1 Mg Vial) 1 mg SQ UD PRN; Protocol PRN Reason: Hypoglycemia Protocol Stop: 11/14/20 20:32 Glucose (Glucose 10 Tabs/Tube) 4 - 8 tabs PO UD PRN; Protocol PRN Reason: Hypoglycemia Protocol Stop: 11/14/20 20:32 Glucose (Glucose 40% Gel 15 Gm Tube) 15 - 30 gm PO UD PRN; Protocol PRN Reason: Hypoglycemia Protocol Stop: 11/14/20 20:32 Heparin Sodium (Beef Lung) (Heparin 10 Unit/Ml 5 Ml Flush) 5 ml FLUSH PRN PRN PRN Reason: Flush Stop: 11/27/20 22:57 Hydralazine HCl (Hydralazine Hcl 20 Mg/Ml Vial) 10 mg IV Q6H PRN PRN Reason: SBP > 160 Stop: 12/08/20 10:34 Last Admin: 11/08/20 12:56 Dose: 10 mg Documented by: Hydralazine HCl (Hydralazine Tab 50 Mg Tab) 50 mg NG Q8 [facility] Stop: 12/11/20 13:59 Last Admin: 11/12/20 20:26 Dose: 50 mg Documented by: Furosemide 40 mg/ Syringe 4 mls @ 4 mls/min IV DAILY [facility] Stop: 12/04/20 08:59 Last Admin: 11/08/20 07:50 Dose: 4 mls/min Documented by: Famotidine 20 mg/ Syringe 5 mls @ 2.5 mls/min IV Q12 [facility] Stop: 12/04/20 10:29 Last Admin: 11/12/20 20:34 Dose: 2.5 mls/min Documented by: Ceftriaxone Sodium 2,000 mg/ (Dextrose) 70 mls @ 140 mls/hr IV Q24H [facility] Stop: 11/13/20 09:59 Last Infusion: 11/12/20 09:58 Dose: Infused Documented by: Insulin Aspart (Insulin Aspart 100 Units/Ml 3 Ml Pen) 0 units SC Q4 [facility]; Protocol Stop: 11/27/20 15:59 Last Admin: 11/12/20 20:24 Dose: 2 units Documented by: Lactulose (Lactulose Syrup 20 Gm/30 Ml Udc) 20 gm PO BID [facility] Stop: 12/12/20 20:59 Last Admin: 11/12/20 20:25 Dose: 20 gm Documented by: Levothyroxine Sodium (Levothyroxine Sodium 75 Mcg Tablet) 75 mcg PO DAILYBB [facility] Stop: 11/15/20 06:29 Last Admin: 11/12/20 05:50 Dose: 75 mcg Documented by: Metoprolol Tartrate (Metoprolol Tartrate 25 Mg Tab) 75 mg PO BID [facility] Stop: 12/10/20 08:59 Last Admin: 11/12/20 20:26 Dose: 75 mg Documented by: Metoprolol Tartrate (Metoprolol Tartrate 1 Mg/Ml Vial) 5 mg IV Q6 PRN PRN Reason: SBP>160 Stop: 12/09/20 11:59 Miscellaneous (Carbohydrates For Hypoglycemia ) 15 - 30 gm PO UD PRN PRN Reason: Hypoglycemia Protocol Stop: 11/14/20 20:32 Multi-Ingredient Cream (Artificial Tears Op Oint 3.5 Gm Tube) 1 appln OP Q4 [facility] Stop: 11/26/20 16:06 Last Admin: 11/12/20 20:19 Dose: 1 appln Documented by: Multivitamins/Minerals (Multi Vit W/Minerals Liquid 15 Ml Udp) 15 ml PO DAILY@1200 HARISH Stop: 11/28/20 11:59 Last Admin: 11/12/20 12:28 Dose: 15 ml Documented by: Nutritional Formula (Peptamen Intense Vhp 1.0 Juan Daniel 1,000 Ml Bag) 1,000 ml OG DAILY@1600 HARISH; Protocol Stop: 12/03/20 15:59 Last Admin: 11/12/20 20:19 Dose: 1,000 ml Documented by: Oxycodone HCl (Oxycodone Hcl Soln 5 Mg/5 Ml Udc) 5 mg PO Q4H PRN PRN Reason: Pain Stop: 11/21/20 10:47 Last Admin: 11/12/20 14:19 Dose: 5 mg Documented by: Oxycodone HCl (Oxycodone Hcl Soln 5 Mg/5 Ml Udc) 10 mg PO TID [facility] Stop: 11/24/20 13:59 Last Admin: 11/12/20 20:34 Dose: 10 mg Documented by: Polyethylene Glycol (Polyethylene (Miralax) 17 Gm Pack) 17 gm PO DAILY PRN PRN Reason: Constipation Stop: 12/06/20 09:00 Quetiapine Fumarate (Quetiapine Fumarate 25 Mg Tablet) 25 mg PO Q12 [facility] Stop: 12/12/20 13:19 Last Admin: 11/12/20 20:25 Dose: 25 mg Documented by: Rosuvastatin Calcium (Rosuvastatin Calcium 5 Mg Tab) 5 mg PO [id number]@[id number] [facility] Stop: 11/17/20 08:59 Last Admin: 11/12/20 08:23 Dose: 5 mg Documented by: PG Care Time/CCT Total # of Minutes Spent Total Time Spent with Patient: Total time spent is greater than 50% in coordination of care (as documented) at patient's floor/unit and/or counseling patient: Coding Level of Care Code 25795 Subseq Hosp Care Lvl 2 Diagnoses Acute respiratory failure with hypoxia J96.01 Pneumonia due to COVID-19 virus U07.1; J12.89 Atrial fibrillation I48.91 Hypertension I10 Metabolic acidosis E87.2 Sepsis A41.9 Sepsis acute organ dysfunction status: unspecified Sepsis type: sepsis due to unspecified organism Prediabetes R73.03 Hyperlipidemia E78.5 GERD (gastroesophageal reflux disease) K21.9 Esophageal dysmotility K22.4 Hypothyroidism E03.9 Anxiety F41.9 DVT prophylaxis Z29.9 (1) Sepsis Sepsis acute organ dysfunction status: unspecified Sepsis type: sepsis due to unspecified organism Qualified Code(s): A41.9 - Sepsis, unspecified organism
[2020-11-13] MEDS: ARTIFICIAL TEARS OP OINT 3.5 GM TUBE OP SCH ×7 (00:29→23:32)
[2020-11-13] MEDS: fentaNYL citrate 100 MCG/2 ML VIAL IV PRN ×7 (00:29→16:56)
[2020-11-13] MEDS: INSULIN ASPART 100 UNITS/ML 3 ML PEN SC SCH ×6 (00:30→20:54)
[2020-11-13] MEDS: oxyCODONE HCL SOLN 5 MG/5 ML UDC PO PRN (02:01)
[2020-11-13] MEDS: hydrALAZINE TAB 50 MG TAB NG SCH ×3 (05:19→19:51)
[2020-11-13] MEDS: LEVOTHYROXINE SODIUM 75 MCG TABLET PO SCH (06:17)
[2020-11-13] MEDS: ENOXAPARIN INJ 40 MG/0.4 ML SYR SQ SCH ×2 (06:17→17:09)
[2020-11-13 06:39] LABS: Hematocrit (blood only) 32.6 % (37-47); Hemoglobin 10.4 g/dL (12.0-16.0); Mean Corpuscular Hemoglobin 31.5 pg (25-34); Mean Corpuscular Hgb Conc 31.9 g/dL (32-36); Mean Corpuscular Volume 98.8 fL (80-100); Mean Platelet Volume 9.1 fL (7.4-10.4); Platelet Count 495 K/uL (130-400); RDW Standard Deviation 56.8 fL (36.4-46.3); White Blood Count 14.66 K/uL (4.8-10.8)
[2020-11-13 07:10] LABS: ALC (manual) 0.65 K/uL (1.2-3.4); ANC (manual) 13.11 K/uL (1.4-6.5); Eosinophils # (manual) 0.13 K/uL (0-0.5); Eosinophils % (manual) 0.9 %; Lymphocytes # (manual) 0.65 K/uL (1.2-3.4); Lymphocytes % (manual) 4.4 %; Monocytes # (manual) 0.51 K/uL (0.11-0.59); Monocytes % (manual) 3.5 %; Myelocytes # (manual) 0.26 K/uL (0-0); Myelocytes % (manual) 1.8 %; Neutrophils # (manual) 13.11 K/uL (1.4-6.5); Neutrophils % (manual) 89.4 %
[2020-11-13 07:17] LABS: BUN Creatinine Ratio 86.3 (10-20); Calcium 9.1 mg/dl (8.5-10.1); Creatinine Clr Calc Pharmacy 203.3 ml/min; Est GFR (African American) 134.9; Est GFR (Non-African American) 116.4; Magnesium 2.3 mg/dl (1.8-2.4)
[2020-11-13 07:18] LABS: Phosphorus 2.4 mg/dl (2.5-4.9)
[2020-11-13] MEDS: oxyCODONE HCL SOLN 5 MG/5 ML UDC PO SCH ×3 (07:46→19:49)
[2020-11-13] MEDS: clonazePAM 0.5 MG TAB PO SCH ×2 (07:46→19:49)
[2020-11-13] MEDS: FAMOTIDINE 20 MG in SYRINGE 3 ML IV SCH ×2 (07:47→21:42)
[2020-11-13] MEDS: METOPROLOL TARTRATE 25 MG TAB PO SCH (07:49)
[2020-11-13] MEDS: amLODIPine BESYLATE 5 MG TAB PO SCH (07:49)
[2020-11-13] MEDS: QUEtiapine FUMARATE 25 MG TABLET PO SCH ×2 (07:50→19:51)
[2020-11-13] MEDS: LACTULOSE SYRUP 20 GM/30 ML UDC PO SCH ×2 (07:51→19:50)
--- NOTE | 2020-11-13 08:05 | Hospitalist Progress Note ---
Date of Service November 13, 2020 Assessment & Plan (1) Acute respiratory failure with hypoxia: Intubated on 10/27 after nearly two weeks of high flow and BIPAP ARDSnet settings with high PEEP and low FiO2 no real improvement in lung compliance when switching from supine to prone. tracheostomy on 11/05 still ventilator dependent and requiring high PEEP on PRVC 24, 400, [id number] high dose Decadron added for late ARDS with 20mg daily, then down to 10mg daily until 11/12, now can stop ultimate plan is for LTACH pain/sedation with Oxycodone 10 TID, Seroquel 25 q12, Fentanyl 50mcg q1 PRN tube feeds, ultimately will need a PEG which can be done at LTACH (2) Pneumonia due to COVID-19 virus: stopped Decadron 10/29, resumed higher dose Decadron for late ARDS, complete 11/12 completed course of Remdesivir, LD 10/19 convalescent plasma on 10/16 Prognosis remains poor, try to wean from ventilator looking into LTACH once more stable sputum culture with Klebsiella, treated with Rocephin (3) Atrial fibrillation: paroxysmal stable on metoprolol 75 BID was on amiodarone, now stopped not on full anticoagulation as afib has been brief, Lovenox 40 q12 continue on tele (4) Hypertension: sedation on metoprolol 75 q12, Hydralazine 50 q8, amlodipine 10mg daily (5) Metabolic acidosis: initiated Diamox, follow HCO3 levels, coming down, now Diamox held (6) Sepsis: Source - COVID-19 +/- possible bacterial PNA completed course of Levaquin sputum culture then with Klebsiella, on Rocephin (7) Prediabetes: HbA1C 5.9 in May. Glucose 129 on admission no longer on dexamethasone, easier to manage (8) Hyperlipidemia: Continue her usual rosuvastatin dosing via NG tube (9) GERD (gastroesophageal reflux disease): Continue her usual pantoprazole 40mg PO daily (10) Esophageal dysmotility: Aspiration precautions. (11) Hypothyroidism: TSH 1.31 in Aug. Continue levothyroxine 75 mcg PO daily (12) Anxiety: now on sedation (13) DVT prophylaxis: Lovenox 40 q 12 Admission and Anticipated Discharge Date Admission Date: October 15, 2020 Subjective pt is sedated and ventilated, she has a tracheostomy but was sedate on my exam Review of Systems Review of Systems: Unobtainable due to reduced consciousness Physical Exam Physical Exam: The patient appeared chronically ill, she remains ventilated via trachea Vital signs as documented. Lungs are clear to auscultation and appear unlabored Cardiac exam, Rhythm is regular.. No murmurs, rubs or gallops. Abdominal exam reveals normal bowel sounds, soft non tender, no masses Extremities are nonedematous and both pedal pulses are normal. Neurologic exam is alert and oriented, no focal loss of strength or sensation Skin is without bruises or rashes Psychologically is without concerns for anxiety or depression. Results & Data Results & Data ([facility]) Vital Signs (Past 12 Hours) Vital Signs Temp Pulse Resp BP Pulse Ox 11/13/20 07:00 76 153/59 H 95 11/13/20 06:00 77 137/57 L 95 11/13/20 05:00 86 94 11/13/20 04:23 68 30 H 96 11/13/20 04:00 99.0 F 69 140/102 H 95 11/13/20 03:00 82 135/83 93 11/13/20 02:10 79 137/125 H 94 11/13/20 02:00 80 91 11/13/20 01:01 75 112/72 95 11/13/20 01:00 59 L 11/13/20 00:01 98.8 F 65 159/65 H 93 11/13/20 00:00 51 L 11/12/20 23:56 73 34 H 94 11/12/20 23:01 71 166/72 H 97 11/12/20 23:00 59 L 95 11/12/20 22:28 59 L 102/60 95 11/12/20 22:00 66 93/46 L 94 11/12/20 21:17 75 108/48 L 94 11/12/20 21:15 75 86/45 L 98 11/12/20 21:10 69 26 H 94 11/12/20 21:01 59 L 86/42 L 94 11/12/20 21:00 65 PG Care Time/CCT Total # of Minutes Spent Total Time Spent with Patient: Total time spent is greater than 50% in coordination of care (as documented) at patient's floor/unit and/or counseling patient: Coding Level of Care Code 16294 Subseq Hosp Care Lvl 3 Diagnoses Acute respiratory failure with hypoxia J96.01 Pneumonia due to COVID-19 virus U07.1; J12.89 Atrial fibrillation I48.91 Hypertension I10 Metabolic acidosis E87.2 Sepsis A41.9 Sepsis acute organ dysfunction status: unspecified Sepsis type: sepsis due to unspecified organism Prediabetes R73.03 Hyperlipidemia E78.5 GERD (gastroesophageal reflux disease) K21.9 Esophageal dysmotility K22.4 Hypothyroidism E03.9 Anxiety F41.9 DVT prophylaxis Z29.9 (1) Sepsis Sepsis acute organ dysfunction status: unspecified Sepsis type: sepsis due to unspecified organism Qualified Code(s): A41.9 - Sepsis, unspecified organism
[2020-11-13] MEDS ORDERED: ATROPINE SULFATE 0.1 MG/ML SYRINGE INJ PRN (10:46)
[2020-11-13] MEDS: MULTI VIT W/MINERALS LIQUID 15 ML UDP PO SCH (12:18)
--- NOTE | 2020-11-13 16:46 | Critical Care Progress Note ---
Date of Service November 13, 2020 Assessment & Plan (1) 2019 novel coronavirus–infected pneumonia (NCIP)#8211;infected pneumonia (NCIP): Impression: 69-year-old female with severe acute hypoxemic respiratory failure intubated due to novel coronavirus with ARDS now status post tracheostomy. PLAN: Neuro: Off of propofol and fentanyl drip since 11/11/2020 We will consider Seroquel if the patient still has bouts of agitation. QTC 442 Resp: Trach dependent respiratory failure secondary to COVID-19 pneumonia Patient got 10 days of dexamethasone. She is still on high PEEP. Patient was started on ARDS protocol 20 mg of Decadron which was completed today. Of Decadron last dose 11/12/2020 S/p ARDS secondary to coronavirus infection. Wean PEEP and FiO2 to keep PO2 greater than 90% CV: History of A. fib with SVTs TSH: 0.9 within normal limit 11/10/2020 -Hypertension Continue with blood pressure medication ID: Pansensitive Klebsiella from her sputum culture. Continue rocephin. Previously on merrem. Rocephin, last dose 11/13/2020 Urine cultures were growing group C strep from 10/15/2020 which were treated. COVID-19 pneumonia: S/p treatment GI/Nutrition: NG tube is in place. Continue tube feeds. She will need a PEG tube later which can be placed even at LTACH C/w lactulose Heme: Monitor H&H Endocrine: Glycemic control per protocol. Continue Synthroid Code Status: DNR Disposition: ICU at this time and she will likely need LTAC placement in the near future. --Prophylaxis VTE: Lovenox GI: Pepcid Lines:Left subclavian placed 10/27 arterial line placed 10/27 --> DC'd 11/09/2020, no Rincon--> DC'd 11/10/2020 Diet: Tube feeds Plan: In and out: -426, urine output 1075 Patient has been getting oxycodone 10 mg every 8 hours. She has been getting fentanyl 50 MCG every hour because of the distress. I will increase oxycodone to 10 mg every 6 hours. Increase Seroquel to 50 mg twice daily to that. Because of the episode of bradycardia that the patient had I will go down on bet a-adam to 50 mg twice daily. Hypophosphatemia is being replaced. Ms Lopez (POA) at [phone] sister Holger [phone]. I have personally spent 40 minutes of critical care time in the direct management of this patient. This is a life/limb threatening event. This includes time spent evaluating patient, direct bedside care, chart review, placing or ders, interpretation of diagnostic studies, discussion with consultants, patient, and family members, as well as other required patient management activities. This time is exclusive of all separately billable procedures, and teaching time and separate from and in addition to any other critical care service time. Admission and Anticipated Discharge Date Admission Date: October 15, 2020 Subjective Patient seen and examined at bedside. No acute distress. Patient always be sent around low 30s. When she is in distress she might go into high 40s. Overnight she did have an episode of bradycardia going into the 20s. She was coughing at that time. Could have been a component of vasovagal. She did not have hypoxia during that time. Afebrile. Does not follow commands still unfortunately. Review of Systems Review of Systems: Unobtainable due to mental health condition, Unobtainable due to cognitive status and Unobtainable due to endotracheal tube Physical Exam Physical Exam: Constitutional: No acute distress HEENT: PERRLA, positive trach Respiratory system: Decreased air entry bilaterally, no wheeze, no rhonchi positive crackles bilaterally CVS: S1-S2 positive Abdomen: Soft, nontender, nondistended, positive bowel sounds x4 Extremities: +2 pulses bilaterally radialis/ dorsalis pedis, no cyanosis, no edema Neuro: Sedated, positive corneal, positive gag, breathing over the vent Psych: Unable to assess G/U: No Rincon Skin: no rashes, warm and dry Lymphatic: no cervical or axillary lymphadenopathy Results & Data Results & Data ([facility]) Vital Signs (Past 12 Hours) Vital Signs Temp Pulse Resp BP Pulse Ox 11/13/20 16:00 78 11/13/20 14:26 72 28 H 95 11/13/20 13:00 62 146/43 H 98 11/13/20 12:00 73 135/59 L 95 11/13/20 11:42 68 28 H 94 11/13/20 11:00 71 133/50 L 95 11/13/20 10:00 56 L 127/54 L 95 11/13/20 09:57 63 109/47 L 96 11/13/20 09:00 68 63/35 L 93 11/13/20 08:34 65 27 H 93 11/13/20 08:00 37.2 C 70 121/55 L 95 11/13/20 07:00 76 153/59 H 95 11/13/20 06:00 77 137/57 L 95 11/13/20 05:00 86 94 11/13/20 06:21 11/13/20 06:21 Coding Level of Care Code Critical Care 1st 30-74 mins Diagnoses 2019 novel coronavirus–infected pneumonia (NCIP)#8211;infected pneumonia (NCIP) U07.1; J12.89 Time Spent (min) 40
[2020-11-13] MEDS: PEPTAMEN INTENSE VHP 1.0 CAL 1,000 ML BAG OG SCH (17:02)
[2020-11-13] MEDS: ASPIRIN 81 MG CHEW PO SCH (19:49)
[2020-11-13] MEDS: METOPROLOL TARTRATE 50 MG TAB PO SCH (19:52)
[2020-11-14] MEDS: INSULIN ASPART 100 UNITS/ML 3 ML PEN SC SCH ×6 (00:26→20:33)
[2020-11-14] MEDS: fentaNYL citrate 100 MCG/2 ML VIAL IV PRN ×7 (00:49→19:15)
[2020-11-14] MEDS: ARTIFICIAL TEARS OP OINT 3.5 GM TUBE OP SCH ×5 (03:34→19:16)
[2020-11-14] MEDS: oxyCODONE HCL SOLN 5 MG/5 ML UDC PO PRN (05:59)
[2020-11-14] MEDS: LEVOTHYROXINE SODIUM 75 MCG TABLET PO SCH (05:59)
[2020-11-14] MEDS: hydrALAZINE TAB 50 MG TAB NG SCH ×3 (05:59→20:34)
[2020-11-14] MEDS: ENOXAPARIN INJ 40 MG/0.4 ML SYR SQ SCH ×2 (06:00→17:49)
[2020-11-14 06:41] LABS: Basophils # (auto) 0.02 K/uL (0-0.2); Basophils % (auto) 0.2 %; Eosinophils # (auto) 0.43 K/uL (0-0.5); Eosinophils % (auto) 3.3 %; Hematocrit (blood only) 31.7 % (37-47); Hemoglobin 10.2 g/dL (12.0-16.0); Immature Granulocytes # (auto) 0.29 K/uL (0.00-0.02); Immature Granulocytes % (auto) 2.2 %; Lymphocytes # (auto) 0.62 K/uL (1.2-3.4); Lymphocytes % (auto) 4.8 %; Mean Corpuscular Hemoglobin 31.6 pg (25-34); Mean Corpuscular Hgb Conc 32.2 g/dL (32-36); Mean Corpuscular Volume 98.1 fL (80-100); Monocytes # (auto) 0.62 K/uL (0.11-0.59); Monocytes % (auto) 4.8 %; Neutrophils # (auto) 10.96 K/uL (1.4-6.5); Neutrophils % (auto) 84.7 %; Nucleated RBC # (auto) 0.03 K/uL (0-0); Nucleated RBC % (auto) 0.2 %; Platelet Count 541 K/uL (130-400); RDW Coefficient of Variation 16.1 % (11.5-14.5); Red Blood Count 3.23 M/uL (4.2-5.4); White Blood Count 12.94 K/uL (4.8-10.8)
[2020-11-14 07:16] LABS: BUN Creatinine Ratio 105.9 (10-20); Calcium 8.7 mg/dl (8.5-10.1); Creatinine Clr Calc Pharmacy 251.8 ml/min; Est GFR (African American) 144.8; Est GFR (Non-African American) 124.9; Magnesium 2.2 mg/dl (1.8-2.4); Phosphorus 2.2 mg/dl (2.5-4.9); Potassium 3.8 mmol/L (3.5-5.1)
--- NOTE | 2020-11-14 07:19 | Hospitalist Progress Note ---
Date of Service November 14, 2020 Assessment & Plan (1) Acute respiratory failure with hypoxia: Intubated on 10/27 after nearly two weeks of high flow and BIPAP ARDSnet settings with high PEEP and low FiO2 no real improvement in lung compliance when switching from supine to prone. tracheostomy on 11/05 Patient now on CPAP via her trach with a pressure support of 12 PEEP of 8 and FiO2 of 55 high dose Decadron added for late ARDS with 20mg daily, then down to 10mg daily until 11/12, now can stop ultimate plan is for LTACH however concern for anoxic brain injury or hypoxic brain injury as she is not awakening despite removing some of her sedation Patient gets tachypneic and tachycardic only improved with opiates also on scheduled benzodiazepine per pulmonary medicine's recommendation tube feeds, ultimately will need a PEG however if her mental status does not improve will discuss with family long-term goals (2) Pneumonia due to COVID-19 virus: stopped Decadron 10/29, resumed higher dose Decadron for late ARDS, complete 11/12 completed course of Remdesivir, LD 10/19 convalescent plasma on 10/16 Prognosis remains poor, been weaning to positive pressure ventilation but mental status is not improved looking into LTACH once more stable sputum culture with Klebsiella, treated with Rocephin (3) Hypertension: sedation on metoprolol 75 q12, Hydralazine 50 q8, amlodipine 10mg daily via OG tube (4) Metabolic acidosis: Resolved (5) Sepsis: Source - COVID-19 +/- possible bacterial PNA completed course of Levaquin sputum culture then with Klebsiella, on Rocephin (6) Prediabetes: HbA1C 5.9 in May. Glucose 129 on admission (7) Hyperlipidemia: Continue her usual rosuvastatin dosing via NG tube (8) GERD (gastroesophageal reflux disease): Continue her usual pantoprazole 40mg PO daily (9) Esophageal dysmotility: Aspiration precautions. (10) Hypothyroidism: TSH 1.31 in Aug. Continue levothyroxine 75 mcg PO daily (11) Anxiety: now on sedation scheduled clonazepam (12) DVT prophylaxis: Lovenox 40 q 12 Admission and Anticipated Discharge Date Admission Date: October 15, 2020 Subjective pt is sedated and ventilated, she has a tracheostomy but was obtunded on my exam and could not even protect face from falling hand Review of Systems Review of Systems: Unobtainable due to cognitive status Physical Exam Physical Exam: The patient appeared chronically ill, she remains ventilated via trachea Vital signs as documented. Lungs are clear to auscultation and appear unlabored Cardiac exam, Rhythm is regular.. No murmurs, rubs or gallops. Abdominal exam reveals normal bowel sounds, soft non tender, no masses Extremities are nonedematous and both pedal pulses are normal. she responds only to noxious stimuli, does not protect face from falling hand Skin is without bruises or rashes Psychologically is without concerns for anxiety or depression. Results & Data Results & Data ([facility]) Vital Signs (Past 12 Hours) Vital Signs Temp Pulse Resp BP Pulse Ox 11/14/20 06:27 88 137/72 91 11/14/20 06:00 85 180/65 H 92 11/14/20 05:00 93 H 154/97 H 91 11/14/20 04:27 88 32 H 92 11/14/20 04:00 99.1 F 79 174/70 H 94 11/14/20 03:02 89 91 11/14/20 03:00 101 H 164/66 H 92 11/14/20 02:59 84 179/68 H 88 L 11/14/20 02:00 91 H 182/58 H 92 11/14/20 01:00 68 150/66 H 90 11/14/20 00:00 98.8 F 84 154/54 H 92 11/13/20 23:27 83 30 H 92 11/13/20 23:00 67 153/55 H 93 11/13/20 22:00 67 145/68 H 96 11/13/20 21:00 67 98/52 L 92 11/13/20 20:43 73 26 H 92 11/13/20 20:00 85 162/69 H 96 PG Care Time/CCT Total # of Minutes Spent Total Time Spent with Patient: Total time spent is greater than 50% in coordination of care (as documented) at patient's floor/unit and/or counseling patient: Coding Level of Care Code 52608 Subseq Hosp Care Lvl 3 Diagnoses Acute respiratory failure with hypoxia J96.01 Pneumonia due to COVID-19 virus U07.1; J12.89 Hypertension I10 Metabolic acidosis E87.2 Sepsis A41.9 Sepsis acute organ dysfunction status: unspecified Sepsis type: sepsis due to unspecified organism Prediabetes R73.03 Hyperlipidemia E78.5 GERD (gastroesophageal reflux disease) K21.9 Esophageal dysmotility K22.4 Hypothyroidism E03.9 Anxiety F41.9 DVT prophylaxis Z29.9 (1) Sepsis Sepsis acute organ dysfunction status: unspecified Sepsis type: sepsis due to unspecified organism Qualified Code(s): A41.9 - Sepsis, unspecified organism
[2020-11-14] MEDS: oxyCODONE HCL SOLN 5 MG/5 ML UDC PO SCH ×3 (07:35→20:32)
[2020-11-14] MEDS: amLODIPine BESYLATE 5 MG TAB PO SCH (07:36)
[2020-11-14] MEDS: LACTULOSE SYRUP 20 GM/30 ML UDC PO SCH ×2 (07:36→20:33)
[2020-11-14] MEDS: METOPROLOL TARTRATE 50 MG TAB PO SCH (07:36)
[2020-11-14] MEDS: QUEtiapine FUMARATE 25 MG TABLET PO SCH ×2 (07:36→20:34)
[2020-11-14] MEDS: clonazePAM 0.5 MG TAB PO SCH ×2 (07:36→20:32)
[2020-11-14] MEDS: FAMOTIDINE 20 MG in SYRINGE 3 ML IV SCH ×2 (07:38→20:48)
[2020-11-14] MEDS: MULTI VIT W/MINERALS LIQUID 15 ML UDP PO SCH (11:57)
--- NOTE | 2020-11-14 13:30 | Critical Care Progress Note ---
Date of Service November 14, 2020 Assessment & Plan (1) 2019 novel coronavirus–infected pneumonia (NCIP)#8211;infected pneumonia (NCIP): Impression: 69-year-old female with severe acute hypoxemic respiratory failure intubated due to novel coronavirus with ARDS now status post tracheostomy. PLAN: Neuro: Off of propofol and fentanyl drip since 11/11/2020 We will consider Seroquel if the patient still has bouts of agitation. QTC 442 Resp: Trach dependent respiratory failure secondary to COVID-19 pneumonia Patient got 10 days of dexamethasone. Patient was started on ARDS protocol Decadron which completed 11/12/2020 S/p ARDS secondary to coronavirus infection. Wean PEEP and FiO2 to keep PO2 greater than 90% CV: History of A. fib with SVTs TSH: 0.9 within normal limit 11/10/2020 Having episodes of bradycardia especially when they are suctioning her. Atropine as needed -Hypertension Continue with blood pressure medication ID: Pansensitive Klebsiella from her sputum culture. Continue rocephin. Previously on merrem. Rocephin, last dose 11/13/2020 Urine cultures were growing group C strep from 10/15/2020 which were treated. COVID-19 pneumonia: S/p treatment GI/Nutrition: NG tube is in place. Continue tube feeds. C/w lactulose Heme: Monitor H&H Endocrine: Glycemic control per protocol. Continue Synthroid Code Status: DNR Disposition: ICU at this time and she will likely need LTAC placement in the near future. --Prophylaxis VTE: Lovenox GI: Pepcid Lines:Left subclavian placed 10/27 arterial line placed 10/27 --> DC'd 11/09/2020, no Rincon--> DC'd 11/10/2020 Diet: Tube feeds Plan: In and out: -200, urine output 1800 Patient tolerates pressure support during the day but she has bouts of agitation for which she needs fentanyl. Patient did have sinus pause and that was while the patient was getting suctioned. I think fentanyl which the patient has been getting is also playing a role. We will go down on fentanyl to every 2 hours. Continue with clonazepam, continue with oxycodone which she has been getting 10 mg every 8 hours. Continue with Seroquel. Because of the episode of bradycardia that the patient had I will go down on beta-adam to 25 mg twice daily with holding parameters. Hypophosphatemia is being replaced. Awaiting placement to LTAC. Family is also discussing regarding withdrawal of care. Case discussed with nurse as well as RT who were at bedside during rounds. Ms Lopez (POA) at [phone] sister Holger [phone]. I have personally spent 38 minutes of critical care time in the direct management of this patient. This is a life/limb threatening event. This includes time spent evaluating patient, direct bedside care, chart review, placing orders, interpretation of diagnostic studies, discussion with consultants, patient, and family members, as well as other required patient management activities. This time is exclusive of all separately billable procedures, and teaching time and separate from and in addition to any other critical care service time. Admission and Anticipated Discharge Date Admission Date: October 15, 2020 Subjective Patient seen and examined at bedside. Patient was breathing in the low 30s at the time of examination, heart rate was in the low 60s. Patient is not following commands. She was only on PEEP of 5. Put the patient on pressure support to see how she does. If the respiratory rate goes up greater than 35 continue to assist control. Review of Systems Review of Systems: Unobtainable due to mental health condition and Unobtainable due to cognitive status Physical Exam Physical Exam: Constitutional: No acute distress HEENT: PERRLA, positive trach Respiratory system: Decreased air entry bilaterally, no wheeze, no rhonchi pos itive crackles bilaterally CVS: S1-S2 positive Abdomen: Soft, nontender, nondistended, positive bowel sounds x4 Extremities: +2 pulses bilaterally radialis/ dorsalis pedis, no cyanosis, no edema Neuro: Sedated, positive corneal, positive gag, breathing over the vent Psych: Unable to assess G/U: No Rincon Skin: no rashes, warm and dry Lymphatic: no cervical or axillary lymphadenopathy Results & Data Results & Data ([facility]) Vital Signs (Past 12 Hours) Vital Signs Temp Pulse Resp BP Pulse Ox 11/14/20 11:56 79 44 H 90 11/14/20 11:00 37.2 C 78 141/69 H 88 L 11/14/20 10:00 60 122/47 L 91 11/14/20 09:05 62 115/55 L 91 11/14/20 09:00 79 80/40 L 11/14/20 08:00 80 98/48 L 90 11/14/20 07:59 84 11/14/20 07:53 85 26 H 90 11/14/20 07:00 37.2 C 98 H 152/65 H 93 11/14/20 06:27 88 137/72 91 11/14/20 06:00 85 180/65 H 92 11/14/20 05:00 93 H 154/97 H 91 11/14/20 04:27 88 32 H 92 11/14/20 04:00 37.3 C 79 174/70 H 94 11/14/20 03:02 89 91 11/14/20 03:00 101 H 164/66 H 92 11/14/20 02:59 84 179/68 H 88 L 11/14/20 02:00 91 H 182/58 H 92 11/14/20 06:01 11/14/20 06:01 Coding Level of Care Code Critical Care 1st 30-74 mins Diagnoses 2019 novel coronavirus–infected pneumonia (NCIP)#8211;infected pneumonia (NCIP) U07.1; J12.89 Time Spent (min) 38
[2020-11-14] MEDS: PEPTAMEN INTENSE VHP 1.0 CAL 1,000 ML BAG OG SCH (16:42)
[2020-11-14] MEDS: ASPIRIN 81 MG CHEW PO SCH (20:32)
[2020-11-14] MEDS: METOPROLOL TARTRATE 25 MG TAB PO SCH (20:35)
[2020-11-14] MEDS ORDERED: ACETAMINOPHEN 500 MG TAB PO ONE (21:37)
[2020-11-14] MEDS ORDERED: ACETAMINOPHEN 500 MG TAB ONE (21:41)
[2020-11-15] MEDS: INSULIN ASPART 100 UNITS/ML 3 ML PEN SC SCH ×6 (00:24→20:18)
[2020-11-15] MEDS: ARTIFICIAL TEARS OP OINT 3.5 GM TUBE OP SCH ×6 (00:24→20:17)
[2020-11-15] MEDS: ENOXAPARIN INJ 40 MG/0.4 ML SYR SQ SCH ×2 (05:48→20:17)
[2020-11-15] MEDS: hydrALAZINE TAB 50 MG TAB NG SCH ×3 (05:49→22:14)
[2020-11-15 07:27] LABS: Basophils # (auto) 0.03 K/uL (0-0.2); Basophils % (auto) 0.2 %; Eosinophils # (auto) 0.45 K/uL (0-0.5); Eosinophils % (auto) 3.2 %; Hematocrit (blood only) 32.5 % (37-47); Hemoglobin 10.6 g/dL (12.0-16.0); Immature Granulocytes # (auto) 0.39 K/uL (0.00-0.02); Immature Granulocytes % (auto) 2.8 %; Lymphocytes # (auto) 1.19 K/uL (1.2-3.4); Lymphocytes % (auto) 8.5 %; Mean Corpuscular Hemoglobin 32.1 pg (25-34); Mean Corpuscular Hgb Conc 32.6 g/dL (32-36); Mean Corpuscular Volume 98.5 fL (80-100); Mean Platelet Volume 9.1 fL (7.4-10.4); Monocytes # (auto) 0.29 K/uL (0.11-0.59); Monocytes % (auto) 2.1 %; Neutrophils # (auto) 11.65 K/uL (1.4-6.5); Neutrophils % (auto) 83.2 %; Platelet Count 553 K/uL (130-400); RDW Coefficient of Variation 16.3 % (11.5-14.5); RDW Standard Deviation 57.8 fL (36.4-46.3)
[2020-11-15 07:58] LABS: BUN Creatinine Ratio 89.6 (10-20); Creatinine Clr Calc Pharmacy 240.3 ml/min; Est GFR (African American) 142.9; Est GFR (Non-African American) 123.3; Magnesium 2.1 mg/dl (1.8-2.4); Potassium 3.9 mmol/L (3.5-5.1)
[2020-11-15 08:00] LABS: Phosphorus 2.8 mg/dl (2.5-4.9)
[2020-11-15] MEDS: LACTULOSE SYRUP 20 GM/30 ML UDC PO SCH (08:21)
[2020-11-15] MEDS: oxyCODONE HCL SOLN 5 MG/5 ML UDC PO SCH (08:21)
[2020-11-15] MEDS: FAMOTIDINE 20 MG in SYRINGE 3 ML IV SCH ×2 (08:22→20:44)
[2020-11-15] MEDS: METOPROLOL TARTRATE 25 MG TAB PO SCH ×2 (08:22→22:13)
[2020-11-15] MEDS: amLODIPine BESYLATE 5 MG TAB PO SCH (08:22)
[2020-11-15] MEDS: QUEtiapine FUMARATE 25 MG TABLET PO SCH (08:22)
[2020-11-15] MEDS: ROSUVASTATIN CALCIUM 5 MG TAB PO SCH (08:23)
[2020-11-15] MEDS: fentaNYL citrate 100 MCG/2 ML VIAL IV PRN ×5 (08:54→19:41)
[2020-11-15] MEDS ORDERED: AMIODARONE 200 MG TAB PO SCH (09:00)
[2020-11-15] MEDS: MULTI VIT W/MINERALS LIQUID 15 ML UDP PO SCH (11:27)
[2020-11-15] MEDS ORDERED: cefTRIAXone SODIUM 2,000 MG in DEXTROSE 5% 50 ML IV SCH (12:00)
--- NOTE | 2020-11-15 12:26 | Critical Care Progress Note ---
Date of Service November 15, 2020 Assessment & Plan (1) 2019 novel coronavirus–infected pneumonia (NCIP)#8211;infected pneumonia (NCIP): Impression: 69-year-old female with severe acute hypoxemic respiratory failure intubated due to novel coronavirus with ARDS now status post tracheostomy. PLAN: Neuro: Off of propofol and fentanyl drip since 11/11/2020. Continue 25 mg twice daily of Seroquel Resp: Trach dependent respiratory failure secondary to COVID-19 pneumonia Patient got 10 days of dexamethasone. Patient was started on ARDS protocol Decadron which completed 11/12/2020. Sutures from the tracheostomy site were removed 11/15/2020. S/p ARDS secondary to coronavirus infection. Continue lung protective ventilation strategy. For support as tolerated. CV: History of A. fib with SVTs. Unclear why she is not on anticoagulation at this time given her A. fib. Will review telemetry and readdress. TSH: 0.9 within normal limit 11/10/2020 Having episodes of bradycardia especially when they are suctioning her. Atropine as needed -Hypertension and atrial fibrillation Continue with 10 mg amlodipine, 50 mg 3 times daily of hydralazine and 25 mg twice daily of metoprolol. ID: Previously on Rocephin and meropenem for Klebsiella in her sputum. Received her last dose of Rocephin on 11/13. She also had urine cultures with group C streptococcus September. I am restarting her Rocephin given the mucopurulent secretions noted around the tracheostomy site. COVID-19 pneumonia: S/p treatment GI/Nutrition: NG tube is in place. Continue tube feeds. C/w lactulose Will need placement of a PEG tube if the family wishes to pursue continued aggressive measures. Heme: Monitor H&H Endocrine: Glycemic control per protocol. Continue Synthroid Code Status: DNR. Disposition: ICU at this time and she will likely need LTAC placement in the near future. Overall prognosis extremely poor. Will consult palliative care. --Prophylaxis VTE: Lovenox GI: Pepcid Diet: Tube feeds I have personally spent 38 minutes of critical care time in the direct manageme nt of this patient. This is a life/limb threatening event. This includes time spent evaluating patient, direct bedside care, chart review, placing orders, interpretation of diagnostic studies, discussion with consultants, patient, and family members, as well as other required patient management activities. This time is exclusive of all separately billable procedures, and teaching time and separate from and in addition to any other critical care service time. (2) Paroxysmal A-fib: (3) Acute encephalopathy: (4) Tracheitis: Admission and Anticipated Discharge Date Admission Date: October 15, 2020 Subjective Patient is currently encephalopathic and nonresponsive to commands. She has a tracheostomy in site in place that is draining purulent secretions from around the tracheostomy. Otherwise no acute issues. Still having periodic tachypnea requiring fentanyl boluses. Review of Systems Review of Systems: Unobtainable due to endotracheal tube and Unobtainable due to reduced consciousness Physical Exam Physical Exam: Constitutional: No acute distress HEENT: PERRLA, mucopurulent secretions around the tracheostomy site. Respiratory system: Decreased air entry bilaterally, no wheeze, no rhonchi positive crackles bilaterally CVS: S1-S2 positive Abdomen: Soft, nontender, nondistended, positive bowel sounds x4 Extremities: +2 pulses bilaterally radialis/ dorsalis pedis, no cyanosis, no edema Neuro: Sedated, positive corneal, positive gag, breathing over the vent Psych: Unable to assess G/U: No Rincon Skin: no rashes, warm and dry Lymphatic: no cervical or axillary lymphadenopathy Results & Data Results & Data ([facility]) Vital Signs (Past 12 Hours) Vital Signs Temp Pulse Resp BP Pulse Ox 11/15/20 12:00 78 30 H 90 11/15/20 10:01 95 H 92 11/15/20 10:00 99.0 F 86 131/60 92 11/15/20 09:00 74 107/50 L 91 11/15/20 08:11 30 H 11/15/20 08:00 99.1 F 105 H 138/57 L 93 11/15/20 07:38 98 H 160/64 H 91 11/15/20 07:00 92 H 11/15/20 06:00 94 H 143/63 H 92 11/15/20 05:42 93 H 132/73 92 11/15/20 05:04 85 132/73 90 11/15/20 05:00 88 90 11/15/20 04:41 90 44 H 90 11/15/20 04:30 110 H 152/73 H 93 11/15/20 04:15 100 H 140/64 90 11/15/20 04:00 99.5 F 98 H 142/83 H 91 11/15/20 03:45 85 134/80 91 11/15/20 03:30 98 H 134/68 91 11/15/20 03:15 92 H 139/81 92 11/15/20 03:00 83 143/67 H 92 11/15/20 02:45 81 146/79 H 91 11/15/20 02:30 97 H 131/66 91 11/15/20 02:15 94 H 120/54 L 92 11/15/20 02:00 98 H 144/63 H 92 11/15/20 01:45 95 H 139/58 L 91 11/15/20 01:30 81 130/60 91 11/15/20 01:15 84 122/59 L 91 11/15/20 01:00 86 131/51 L 90 11/15/20 00:45 80 140/64 92 11/15/20 00:30 80 143/67 H 92 reviewed vital signs, labs and imaging Coding Level of Care Code Critical Care 1st 30-74 mins Diagnoses 2019 novel coronavirus–infected pneumonia ([facility])#8211;infected pneumonia ([facility]) U07.1; J12.89 Paroxysmal A-fib I48.0 Acute encephalopathy G93.40 Tracheitis J04.10 Time Spent (min) 38
--- NOTE | 2020-11-15 14:32 | Palliative Care Consultation ---
Date of Consultation November 15, 2020 Assessment & Plan (1) Palliative care encounter: This is a 69-year-old female with severe acute hypoxemic respiratory failure intubated due to novel coronavirus with ARDS now status post tracheostomy. Unfortunately, the patient had a goal for LTACH but now there is concern for anoxic brain injury. Palliative care was consulted to discuss goals of care. Pt intubated since 10/27 after two weeks of High Flow and BiPAP. Pt not on any continuous sedation, receiving some intermittent IVP of Fentanyl as she gets tachypnic. Also receives intermittent Roxicodone through NGT A/C FiO2 0.55, PEEP 8, RR 12 I was able to talk with Dipak on the phone. She understands that PEG tube placement would be considered a life-prolonging measure. Unlikely she would be able to return to her baseline status with a PEG tube placement. Offered an Ipad visit for the family, she will discuss with the patients sister and cousin to see if they would like a visual to be able to assist with decision making. She is going to look at pt living will again to see how it is written regarding life-prolonging measures. Palliative care will continue to follow and assist family with decision making. (2) Acute encephalopathy: (3) Pneumonia due to COVID-19 virus: (4) Hypoxia: History of Present Illness Reason for Consultation: goals of care Requesting Physician: Dr. Harris Attending Physician: Dov Purcell MD History of Present Illness This is a 69-year-old female with severe acute hypoxemic respiratory failure intubated due to novel coronavirus with ARDS now status post tracheostomy. Unfortunately, the patient had a goal for LTACH but now there is concern for anoxic brain injury. Palliative care was consulted to discuss goals of care. Please see A/P for further details. thank you for involving palliative care with this patient. Allergies Allergy/AdvReac Type Severity Reaction Status Date / Time Penicillins Allergy Severe RESP Verified 11/15/20 21:01 DISTRESS/HIVES Home Medications Medication Instructions Recorded Confirmed Type Glucosamine Chondroitin 1 cap PO BID 04/03/19 10/15/20 History aspirin [Aspirin Low Dose] 81 mg PO HS 04/03/19 10/15/20 History biotin 5,000 mcg SUBLINGUAL 1200 04/03/19 10/15/20 History calcium carbonate-vitamin D3 1 tab PO BID 04/03/19 10/15/20 History [Calcium 600 + D(3)] cholecalciferol (vitamin D3) 2,000 unit PO 1200 04/03/19 10/15/20 History [Vitamin D3] multivitamin 1 tab PO 1200 04/03/19 10/15/20 History clonazepam 0.5 mg tablet 0.5 mg PO BID PRN #60 tab 09/17/19 10/15/20 Rx ciclopirox 8 % topical solution 1 appln TOP DAILY #6.6 ml 05/26/20 10/15/20 Rx fluticasone propionate 50 1 spray INTRANASAL HS #16 gm 06/15/20 10/15/20 Rx mcg/actuation nasal spray,suspension levothyroxine 75 mcg tablet 75 mcg PO DAILY #90 tab 07/05/20 10/15/20 Rx rosuvastatin 5 mg tablet 5 mg PO .COMPLEX #36 tab 07/08/20 10/15/20 Rx meloxicam 15 mg tablet 15 mg PO DAILY PRN #30 tab 07/28/20 10/15/20 Rx ondansetron HCl 4 mg tablet 4 mg PO Q8H PRN #30 tab 10/11/20 10/15/20 Rx pantoprazole 40 mg PO DAILYBB 10/15/20 10/15/20 History Patient History Medical History (Updated 11/15/20 @ 14:30 by ADELAIDA Valdovinos) Acute encephalopathy COVID-19 Fever GERD (gastroesophageal reflux disease) History of anesthesia reaction difficulty waking Hyperlipidemia Hypotension Hypothyroidism Migraine Obesity (BMI 30-39.9) Osteoarthritis Palliative care encounter Schatzki's ring of distal esophagus Tracheitis Surgical History (Updated 11/10/20 @ 11:47 by Ross Bush MD) History of cholecystectomy History of colonoscopy 2004 - Mand - Divertics sigmoid History of dilatation and curettage History of oral surgery permanent bridge placed History of total hysterectomy with bilateral salpingo-oophorectomy (BSO) (2013) History of vaginal surgery bartholin cyst removal History of wisdom tooth extraction Hx of laparoscopy diagnostic Family History Sister Family history of diabetes mellitus Bleeding disorder Grandfather (Paternal) Family hx of colon cancer Father Cardiac disorder Cancer Sister Hypertension Clotting disorder Sinusitis Mother Hypertension Stroke Cancer Sinusitis Other No family history of adverse response to anesthesia Social History Smoking Status: Never smoker Second Hand Exposure: No (father smoked); Hx Alcohol Use: Yes Alcohol type: beer, wine and hard liquor Alcohol Intake Frequency Comment: Social Drinker Hx Substance Use: No Preferred Language: Faroese Communication Ability: Effective Skinner Pelts Required: No Beliefs That Will Affect Care: None marital status: Current Living Situation: Alone Other Information That Helps Us Care for You: No Feels Safe at Home: Yes Safety Concerns: Feels Safe At This Time Assistive Devices: Oxygen - Continuous Review of Systems Review of Systems: Unobtainable due to endotracheal tube Physical Exam Constitutional: + ill appearing and + frail appearing Respiratory: Auscultation: + diminished lung sounds tracheostomy Cardiovascular: Rate/Rhythm: regular rhythm and + tachycardic Gastrointestinal (Abdomen): normal bowel sounds, soft, nontender, no hepatosplenomegaly Skin: + pallor Psychiatric: A+Ox3, euthymic affect Results & Data ([facility]) Vital Signs (Past 12 Hours) Vital Signs Temp Pulse Resp BP Pulse Ox 11/15/20 12:00 78 30 H 90 11/15/20 10:01 95 H 92 11/15/20 10:00 37.2 C 86 131/60 92 11/15/20 09:00 74 107/50 L 91 11/15/20 08:11 30 H 11/15/20 08:00 37.3 C 105 H 138/57 L 93 11/15/20 07:38 98 H 160/64 H 91 11/15/20 07:00 92 H 11/15/20 06:00 94 H 143/63 H 92 11/15/20 05:42 93 H 132/73 92 11/15/20 05:04 85 132/73 90 11/15/20 05:00 88 90 11/15/20 04:41 90 44 H 90 11/15/20 04:30 110 H 152/73 H 93 11/15/20 04:15 100 H 140/64 90 11/15/20 04:00 37.5 C 98 H 142/83 H 91 11/15/20 03:45 85 134/80 91 11/15/20 03:30 98 H 134/68 91 11/15/20 03:15 92 H 139/81 92 11/15/20 03:00 83 143/67 H 92 11/15/20 02:45 81 146/79 H 91 11/15/20 02:30 97 H 131/66 91 PG Care Time/CCT Total # of Minutes Spent Total Time Spent with Patient: Total time spent is greater than 50% in coordination of care (as documented) at patient's floor/unit and/or counseling patient: 70 Coding Level of Care Code 67280 Inpt Consult Level 3 Diagnoses Palliative care encounter Z51.5 Acute encephalopathy G93.40 Pneumonia due to COVID-19 virus U07.1; J12.89 Hypoxia R09.02 Time Spent Midlevel Total time spent 70 minutes with > 50% of that time spent assessing the patient, discussing goals of care with the family and collaborating with IDT
[2020-11-15] MEDS: PEPTAMEN INTENSE VHP 1.0 CAL 1,000 ML BAG OG SCH (16:16)
--- NOTE | 2020-11-15 17:22 | Hospitalist Progress Note ---
Date of Service November 15, 2020 Assessment & Plan (1) Acute respiratory failure with hypoxia: Intubated on 10/27 after nearly two weeks of high flow and BIPAP ARDSnet settings with high PEEP and low FiO2 no real improvement in lung compliance when switching from supine to prone. tracheostomy on 11/05 Patient now on CPAP via her trach with a pressure support of 12 PEEP of 8 and FiO2 of 55 he is overbreathing the ventilator rate high dose Decadron added for late ARDS with 20mg daily, then down to 10mg daily until 11/12, now can stop ultimate plan is for LTACH however concern for anoxic brain injury or hypoxic brain injury as she is not awakening despite removing some of her sedation will discuss with family about the reality of her survivability this point time becoming pessimistic and patient may progress to comfort care measures Patient gets tachypneic and tachycardic only improved with opiates I did discontinue scheduled clonazepam tube feeds, ultimately will need a PEG however if her mental status does not improve will discuss with family long-term goals (2) Pneumonia due to COVID-19 virus: stopped Decadron 10/29, resumed higher dose Decadron for late ARDS, complete 11/12 completed course of Remdesivir, LD 10/19 convalescent plasma on 10/16 Prognosis remains poor, been weaning to positive pressure ventilation but mental status is not improved looking into LTACH once more stable sputum culture with Klebsiella, treated with Rocephin (3) Hypertension: on metoprolol 25 q12, Hydralazine 50 q8, amlodipine 10mg daily via OG tube (4) Metabolic acidosis: Resolved (5) Sepsis: Source - COVID-19 +/- possible bacterial PNA completed course of Levaquin currently is on ceftriaxone sputum culture then with Klebsiella, on Rocephin (6) Prediabetes: HbA1C 5.9 in May. Glucose 129 on admission (7) Hyperlipidemia: Continue her usual rosuvastatin dosing via NG tube (8) GERD (gastroesophageal reflux disease): Continue her usual pantoprazole 40mg PO daily (9) Esophageal dysmotility: Aspiration precautions. (10) Hypothyroidism: TSH 1.31 in Aug. Continue levothyroxine 75 mcg PO daily (11) Anxiety: now on sedation scheduled clonazepam (12) DVT prophylaxis: Lovenox 40 q 12 Admission and Anticipated Discharge Date Admission Date: October 15, 2020 Subjective Patient has a startle response but nothing else, all sedation has been held exception of as needed fentanyl and she has not been able to wake up. She is overbreathing respiratory rate settings suggesting that she has some brainstem activity. She has a tracheostomy her obtundation is concerning that she may have had some permanent anoxic brain injury Review of Systems Review of Systems: Unobtainable due to cognitive status Physical Exam Physical Exam: The patient appeared chronically ill, she remains on ventilated via trachea Vital signs as documented. Lungs are clear to auscultation and appear unlabored Cardiac exam, Rhythm is regular.. No murmurs, rubs or gallops. Abdominal exam reveals normal bowel sounds, soft non tender, no masses Extremities are nonedematous and both pedal pulses are normal. she responds only to noxious stimuli, does not protect face from falling hand Skin is without bruises or rashes Psychologically is without concerns for anxiety or depression. Results & Data Results & Data ([facility]) Vital Signs (Past 12 Hours) Vital Signs Temp Pulse Resp BP Pulse Ox 11/15/20 15:10 96 H 35 H 91 11/15/20 12:00 78 30 H 90 11/15/20 10:01 95 H 92 11/15/20 10:00 99.0 F 86 131/60 92 11/15/20 09:00 74 107/50 L 91 11/15/20 08:11 30 H 11/15/20 08:00 99.1 F 105 H 138/57 L 93 11/15/20 07:38 98 H 160/64 H 91 11/15/20 07:00 92 H 11/15/20 06:00 94 H 143/63 H 92 11/15/20 05:42 93 H 132/73 92 PG Care Time/CCT Total # of Minutes Spent Total Time Spent with Patient: Total time spent is greater than 50% in co ordination of care (as documented) at patient's floor/unit and/or counseling patient: Coding Level of Care Code 59328 Subseq Hosp Care Lvl 3 Diagnoses Acute respiratory failure with hypoxia J96.01 Pneumonia due to COVID-19 virus U07.1; J12.89 Hypertension I10 Metabolic acidosis E87.2 Sepsis A41.9 Sepsis acute organ dysfunction status: unspecified Sepsis type: sepsis due to unspecified organism Prediabetes R73.03 Hyperlipidemia E78.5 GERD (gastroesophageal reflux disease) K21.9 Esophageal dysmotility K22.4 Hypothyroidism E03.9 Anxiety F41.9 DVT prophylaxis Z29.9 (1) Sepsis Sepsis acute organ dysfunction status: unspecified Sepsis type: sepsis due to unspecified organism Qualified Code(s): A41.9 - Sepsis, unspecified organism
[2020-11-15] MEDS: ASPIRIN 81 MG CHEW PO SCH (22:13)
[2020-11-16] MEDS: ARTIFICIAL TEARS OP OINT 3.5 GM TUBE OP SCH ×7 (00:24→23:43)
[2020-11-16] MEDS: INSULIN ASPART 100 UNITS/ML 3 ML PEN SC SCH ×4 (00:24→21:33)
[2020-11-16] MEDS: fentaNYL citrate 100 MCG/2 ML VIAL IV PRN ×7 (00:28→23:43)
[2020-11-16] MEDS: hydrALAZINE TAB 50 MG TAB NG SCH ×3 (06:28→21:16)
[2020-11-16] MEDS: LEVOTHYROXINE SODIUM 50 MCG TABLET PO SCH (06:29)
[2020-11-16 07:05] LABS: Basophils # (auto) 0.03 K/uL (0-0.2); Basophils % (auto) 0.2 %; Eosinophils % (auto) 1.4 %; Hematocrit (blood only) 32.1 % (37-47); Hemoglobin 10.2 g/dL (12.0-16.0); Immature Granulocytes # (auto) 0.36 K/uL (0.00-0.02); Immature Granulocytes % (auto) 2.5 %; Lymphocytes # (auto) 1.04 K/uL (1.2-3.4); Lymphocytes % (auto) 7.3 %; Mean Corpuscular Hemoglobin 31.5 pg (25-34); Mean Corpuscular Hgb Conc 31.8 g/dL (32-36); Mean Corpuscular Volume 99.1 fL (80-100); Mean Platelet Volume 9.1 fL (7.4-10.4); Monocytes # (auto) 0.38 K/uL (0.11-0.59); Monocytes % (auto) 2.7 %; Neutrophils # (auto) 12.31 K/uL (1.4-6.5); Neutrophils % (auto) 85.9 %; Nucleated RBC # (auto) 0.04 K/uL (0-0); Nucleated RBC % (auto) 0.3 %; Platelet Count 578 K/uL (130-400); RDW Coefficient of Variation 16.4 % (11.5-14.5); RDW Standard Deviation 57.8 fL (36.4-46.3); Red Blood Count 3.24 M/uL (4.2-5.4); White Blood Count 14.32 K/uL (4.8-10.8)
[2020-11-16 07:46] LABS: BUN Creatinine Ratio 100.6 (10-20); Calcium 8.8 mg/dl (8.5-10.1); Creatinine Clr Calc Pharmacy 271.3 ml/min; Est GFR (African American) 148.8; Est GFR (Non-African American) 128.4; Magnesium 2.3 mg/dl (1.8-2.4); Phosphorus 2.7 mg/dl (2.5-4.9); Potassium 3.9 mmol/L (3.5-5.1)
[2020-11-16] MEDS: FAMOTIDINE 20 MG in SYRINGE 3 ML IV SCH (08:06)
[2020-11-16] MEDS: ENOXAPARIN INJ 40 MG/0.4 ML SYR SQ SCH (08:06)
[2020-11-16] MEDS: MULTI VIT W/MINERALS LIQUID 15 ML UDP PO SCH (08:07)
[2020-11-16] MEDS: amLODIPine BESYLATE 5 MG TAB PO SCH (08:07)
[2020-11-16] MEDS: METOPROLOL TARTRATE 25 MG TAB PO SCH ×2 (08:07→21:16)
[2020-11-16] MEDS ORDERED: MEROPENEM CONSULT ACITVE PRN (11:24)
--- NOTE | 2020-11-16 11:50 | Critical Care Progress Note ---
Date of Service November 16, 2020 Assessment & Plan (1) 2018 novel coronavirus–infected pneumonia (NCIP)#8211;infected pneumonia (NCIP): Impression: 69-year-old female with severe acute hypoxemic respiratory failure intubated due to novel coronavirus with ARDS now status post tracheostomy. PLAN: Neuro: Trying to minimize all sedation at this point. Patient with severely poor mental status. Patient may need MRI of the brain in the very near future. Will consult neurology given ongoing encephalopathy. Resp: Trach dependent respiratory failure secondary to COVID-19 pneumonia Patient got 10 days of dexamethasone. Patient was started on ARDS protocol Decadron which completed 11/12/2020. Sutures from the tracheostomy site were removed 11/15/2020. S/p ARDS secondary to coronavirus infection. Continue lung protective ventilation strategy. For support as tolerated. CV: History of A. fib with SVTs. We will hold on anticoagulation at this time. TSH: 0.9 within normal limit 11/10/2020 Having episodes of bradycardia especially when they are suctioning her. Atropine as needed -Hypertension and atrial fibrillation Continue with 10 mg amlodipine, 50 mg 3 times daily of hydralazine and 25 mg twice daily of metoprolol. ID: Patient having severe mucopurulent sputum from around the tracheostomy site. Starting on meropenem. Will obtain culture from tracheostomy site. Patient having ongoing fevers. COVID-19 pneumonia: S/p treatment GI/Nutrition: NG tube is in place. Continue tube feeds. C/w lactulose Will need placement of a PEG tube if the family wishes to pursue continued aggressive measures. Heme: Monitor H&H Endocrine: Glycemic control per protocol. Continue Synthroid Code Status: DNR. Disposition: ICU at this time and she will likely need LTAC placement in the near future. Overall prognosis extremely poor. Will consult palliative care. --Prophylaxis VTE: Lovenox GI: Pepcid Diet: Tube feeds I have personally spent 41 minutes of critical care time in the direct management of this patient. This is a life/limb threatening event. This includes time spent evaluating patient, direct bedside care, chart review, placing orders, interpretation of diagnostic studies, discussion with consultants, patient, and family members, as well as other required patient management activities. This time is exclusive of all separately billable procedures, and teaching time and separate from and in addition to any other critical care service time. (2) Paroxysmal A-fib: (3) Acute encephalopathy: (4) Tracheitis: Admission and Anticipated Discharge Date Admission Date: October 15, 2020 Subjective Patient continues to remain off all IV drips. Completely unresponsive to commands. He is overbreathing the ventilator. She has significant drainage from her tracheostomy site. Review of Systems Review of Systems: Unobtainable due to endotracheal tube and Unobtainable due to reduced consciousness Physical Exam Constitutional: WD/WN, vitals as above Eyes: PERRL, conjunctivae normal, anicteric sclerae ENMT: external ear and nose normal, oropharynx normal Neck: Tracheostomy in place with significant mucopurulent drainage. Respiratory: normal respiratory effort, lungs clear to auscultation Cardiovascular: RRR, no murmur, no edema Gastrointestinal (Abdomen): normal bowel sounds, soft, nontender, no hepatosplenomegaly Musculoskeletal: no cyanosis or clubbing, extremities motor strength 5/5 Skin: no rashes, warm and dry Neurologic: Patient completely unresponsive to verbal painful stimuli. She is breathing on the ventilator. Psychiatric: Unable to assess. Results & Data Results & Data ([facility]) Vital Signs (Past 12 Hours) Vital Signs Pulse Resp BP Pulse Ox 11/16/20 08:15 76 37 H 96 11/16/20 08:00 76 37 H 96 11/16/20 06:00 84 133/61 99 11/16/20 05:00 82 132/54 L 92 11/16/20 04:24 95 H 48 H 91 11/16/20 04:00 83 149/59 H 93 11/16/20 03:01 106 H 92 11/16/20 03:00 99 H 166/66 H 88 L 11/16/20 02:01 108 H 93 11/16/20 02:00 107 H 138/61 89 L 11/16/20 01:00 85 131/55 L 93 11/16/20 00:06 102 H 50 H 93 11/16/20 00:01 79 93 11/16/20 00:00 86 156/70 H 91 I reviewed vital signs, labs and imaging Coding Level of Care Code Critical Care 1st 30-74 mins Diagnoses 2019 novel coronavirus–infected pneumonia (NCIP)#8211;infected pneumonia (NCIP) U07.1; J12.89 Paroxysmal A-fib I48.0 Acute encephalopathy G93.40 Tracheitis J04.10 Time Spent (min) 41
[2020-11-16] MEDS: MEROPENEM 500 MG in SYRINGE 0 ML IV SCH ×3 (12:12→23:43)
--- NOTE | 2020-11-16 12:46 | Neurology Consultation ---
Date of Consultation November 16, 2020 Assessment & Plan (1) Acute encephalopathy: Diane Garcia is a 69 yo woman w/ PMH of hypothyroidism, migraines, morbid obesity, HTN, esophageal dysmotility, anxiety, prediabetes, arthritis, HLD, and COVID c/b ARDS s/p trach placement/sepsis/new onset AFib and ongoing encephalopathy. Neurology consulted given ongoing encephalopathy. # Encephalopathy: has had a prolonged and complicated hospital course with COVID19 infection. - would start with obtaining a CTH to r/o hemorrhagic strokes which can be seen in COVID patients (or other signs of anoxic injury) - would obtain a routine EEG in 3-4 days after holding majority of sedation as below - would obtain MRI brain without contrast to r/o any small/scattered strokes or anoxic injury when able to - recommend holding all sedation except for seroquel 25mg bid. Avoid opiates and benzos that can worsen mental status/cause confusion in the elderly. Ok to use ketamine or precedex as needed for agitation if seroquel not working. Thank you for this interesting consult. Plan of care discussed with primary team. Please call or text questions. (2) Cardiac arrest following intubation: (3) Sepsis: (4) Pneumonia due to COVID-19 virus: History of Present Illness Attending Physician: Dov Purcell MD History of Present Illness Diane Garcia is a 69 yo woman w/ PMH of hypothyroidism, migraines, morbid obesity, HTN, esophageal dysmotility, anxiety, prediabetes, arthritis, HLD, and COVID c/b ARDS s/p trach placement/sepsis/new onset AFib and ongoing encephalopathy. Neurology consulted given ongoing encephalopathy. Per chart review, she initially tested positive for COVID on 10/05/20. She was admitted to [facility] on 10/15/20 after having increasing weakness, coughing and a fall on 10/14/20 where she was unable to get up. CTH at that time showed mild to moderate SVID but no hemorrhage or hypodensity. For her COVID pneumonia, she was given IV steroids, remdesivir and convalescent plasma. She was initially on high flow NC, before transitioning to BiPAP, eventually requiring intubation on 10/27/20 that was complicated by a brief bradycardic arrest vs PEA where she received one dose of epi and 2 minutes of CPR with ROSC. She was on lovenox AC at the time due to ongoing pAFib. She was trached on 11/05/20 due to ongoing ventilatory needs. Hospitalization thus far also noticeable for Klebsiella pneumonia (treated with meropenem, ceftriaxone) and Strep UTI. She has required fentanyl, propofol, precedex and versed while intubated/trached for agitation/anxiety. More recently, she was started on oxycodone 10mg tid, seroquel 25mg q12h, fentanyl 50mcg q1h prn and klonopin (briefly). Since 11/15/20 PM, she has only been on fentanyl 25mcg q1h prn (last dose given at 9:40am on 11/16/20 so far). No recent head imaging available. Most recent labs show WBC 14.32, Hb 10.2 with MCV 99.1, Plts 578, BMP unremarkable with BUN 23/Cr 0.23, glucose 124, Ca/Mg/Phos WNL. She is unable to give any meaningful history. Allergies Allergy/AdvReac Type Severity Reaction Status Date / Time Penicillins Allergy Severe RESP Verified 11/15/20 21:01 DISTRESS/HIVES Home Medications Medication Instructions Recorded Confirmed Type Glucosamine Chondroitin 1 cap PO BID 04/03/19 10/15/20 History aspirin [Aspirin Low Dose] 81 mg PO HS 04/03/19 10/15/20 History biotin 5,000 mcg SUBLINGUAL 1200 04/03/19 10/15/20 History calcium carbonate-vitamin D3 1 tab PO BID 04/03/19 10/15/20 History [Calcium 600 + D(3)] cholecalciferol (vitamin D3) 2,000 unit PO 1200 04/03/19 10/15/20 History [Vitamin D3] multivitamin 1 tab PO 1200 04/03/19 10/15/20 History clonazepam 0.5 mg tablet 0.5 mg PO BID PRN #60 tab 09/17/19 10/15/20 Rx ciclopirox 8 % topical solution 1 appln TOP DAILY #6.6 ml 05/26/20 10/15/20 Rx fluticasone propionate 50 1 spray INTRANASAL HS #16 gm 06/15/20 10/15/20 Rx mcg/actuation nasal spray,suspension levothyroxine 75 mcg tablet 75 mcg PO DAILY #90 tab 07/05/20 10/15/20 Rx rosuvastatin 5 mg tablet 5 mg PO .COMPLEX #36 tab 07/08/20 10/15/20 Rx meloxicam 15 mg tablet 15 mg PO DAILY PRN #30 tab 07/28/20 10/15/20 Rx ondansetron HCl 4 mg tablet 4 mg PO Q8H PRN #30 tab 10/11/20 10/15/20 Rx pantoprazole 40 mg PO DAILYBB 10/15/20 10/15/20 History Patient History Medical History Acute encephalopathy COVID-19 Fever GERD (gastroesophageal reflux disease) History of anesthesia reaction difficulty waking Hyperlipidemia Hypotension Hypothyroidism Migraine Obesity (BMI 30-39.9) Osteoarthritis Palliative care encounter Schatzki's ring of distal esophagus Tracheitis Surgical History History of cholecystectomy History of colonoscopy 2004 - - Divertics sigmoid History of dilatation and curettage History of oral surgery permanent bridge placed History of total hysterectomy with bilateral salpingo-oophorectomy (BSO) (2013) History of vaginal surgery bartholin cyst removal History of wisdom tooth extraction Hx of laparoscopy diagnostic Family History Sister Family history of diabetes mellitus Bleeding disorder Grandfather (Paternal) Family hx of colon cancer Father Cardiac disorder Cancer Sister Hypertension Clotting disorder Sinusitis Mother Hypertension Stroke Cancer Sinusitis Other No family history of adverse response to anesthesia Social History Smoking Status: Never smoker Second Hand Exposure: No (father smoked); Hx Alcohol Use: Yes Alcohol type: beer, wine and hard liquor Alcohol Intake Frequency Comment: Social Drinker Hx Substance Use: No Preferred Language: Maori Communication Ability: Effective Communicable Disease Specialist Required: No Beliefs That Will Affect Care: None marital status: Current Living Situation: Alone Other Information That Helps Us Care for You: No Feels Safe at Home: Yes Safety Concerns: Feels Safe At This Time Assistive Devices: Oxygen - Continuous Review of Systems Review of Systems: Unobtainable due to endotracheal tube (s/p trach without passy-jose valve) and Unobtainable due to reduced consciousness Exam (Neuro) Physical Exam: General Exam: GEN: NAD, lying in bed CV: RRR, no peripheral edema PULM: Nonlabored respirations on room air. Neuro Exam: MS: Eyes to voice or stimulation. Does not answer orientation questions (is s/p trach). Unable to fully assess language or cognition. CN: deferred as she is unable to participate in most of the exam due to mental status. Face symmetric. MOTOR: Normal bulk, flaccid tone. No spontaneous or provoked movement observed. REFLEXES: deferred SENSORY: does not withdraw or grimace to noxious stimuli in any extremity COORDINATION: unable to assess given mental status GAIT: deferred given physical status * exam performed by primary team as patient is COVID positive and no available PPE for provider to safely examine patient Results & Data ([facility]) Vital Signs (Past 12 Hours) Vital Signs Pulse Resp BP Pulse Ox 11/16/20 11:35 69 42 H 92 11/16/20 08:15 76 37 H 96 11/16/20 08:00 76 37 H 96 11/16/20 06:00 84 133/61 99 11/16/20 05:00 82 132/54 L 92 11/16/20 04:24 95 H 48 H 91 11/16/20 04:00 83 149/59 H 93 11/16/20 03:01 106 H 92 11/16/20 03:00 99 H 166/66 H 88 L 11/16/20 02:01 108 H 93 11/16/20 02:00 107 H 138/61 89 L 11/16/20 01:00 85 131/55 L 93 PG Care Time/CCT Total # of Minutes Spent Total Time Spent with Patient: Total time spent is greater than 50% in coordination of care (as documented) at patient's floor/unit and/or counseling patient: Coding Level of Care Code 11692 Initial Inpt Care Lvl 3 Diagnoses Acute encephalopathy G93.40 Cardiac arrest following intubation I97.89; I46.9 Sepsis A41.9 Sepsis acute organ dysfunction status: unspecified Sepsis type: sepsis due to unspecified organism Pneumonia due to COVID-19 virus U07.1; J12.89 (1) Sepsis Sepsis acute organ dysfunction status: unspecified Sepsis type: sepsis due to unspecified organism Qualified Code(s): A41.9 - Sepsis, unspecified organism
[2020-11-16] MEDS: PEPTAMEN INTENSE VHP 1.0 CAL 1,000 ML BAG OG SCH (13:08)
[2020-11-16] MEDS ORDERED: METOPROLOL TARTRATE 1 MG/ML VIAL IV STA (15:26)
--- NOTE | 2020-11-16 17:50 | CT Scan Report ---
CT head/brain wo con CLINICAL HISTORY: Unconscious patient. Possible hemorrhage. COMPARISON STUDY: 10/15/2020 TECHNIQUE: Axial CT of the brain is performed from the vertex to the skull base. IV contrast was not administered for this examination. A dose lowering technique was utilized adhering to the principles of ALARA. CT DOSE: 960.06 mGy.cm FINDINGS: No intra or extra-axial mass lesions are visualized. There is no CT evidence of acute cortical infarc tion. There is no evidence of midline shift. There is no acute hemorrhage. No calvarial fractures ar e visualized. There are patchy white matter hypodensities likely on a small vessel basis. There is no evidence of pathologic ventricular dilatation. There is disconjugate ocular gaze A nasogastric tube is visualized. There is fluid within both sphenoid sinuses. There is a small amoun t right maxillary sinus air-fluid level. There are bilateral mastoid effusions. There is fluid within both middle ear cavities. IMPRESSION: 1. Interval development of extensive bilateral mastoid effusions with bilateral otitis media 2. Partially opacified sphenoid sinuses and small right maxillary sinus air-fluid level 3. Disconjugate ocular gaze 4. Otherwise no acute intracranial findings. No evidence of acute hemorrhage. ACT 112: Negative or not required by law. Electronically signed by: Sheldon Saunders M.D. 11/16/2020 5:49 PM
--- NOTE | 2020-11-16 18:20 | Hospitalist Progress Note ---
Date of Service November 16, 2020 Assessment & Plan (1) Acute respiratory failure with hypoxia: Intubated on 10/27 after nearly two weeks of high flow and BIPAP ARDSnet settings with high PEEP and low FiO2 no real improvement in lung compliance when switching from supine to prone. tracheostomy on 11/05 Patient now on CPAP via her trach with a pressure support of 12 PEEP of 8 and FiO2 of 55 he is overbreathing the ventilator rate high dose Decadron added for late ARDS with 20mg daily, then down to 10mg daily until 11/12, then stop ultimate plan was for LTACH however since has not had return of higher cognitive function to eat cooperate etc discuss with family about the reality of her survivability this point time becoming pessimistic and patient may progress to comfort care measures Patient gets tachypneic and tachycardic only improved with opiates, attempting ketamine to help support comfort ultimately will need a PEG however if her mental status does not improve will discuss with family long-term goals (2) Pneumonia due to COVID-19 virus: stopped Decadron 10/29, resumed higher dose Decadron for late ARDS, complete 11/12 completed course of Remdesivir, LD 10/19 convalescent plasma on 10/16 Prognosis remains poor, been weaning to positive pressure ventilation but mental status is not improved looking into LTACH once more stable sputum culture with Klebsiella, treated with Rocephin (3) Hypertension: on metoprolol 25 q12, Hydralazine 50 q8, amlodipine 10mg daily via OG tube (4) Metabolic acidosis: Resolved (5) Sepsis: Source - COVID-19 +/- possible bacterial PNA completed course of Levaquin currently is on ceftriaxone sputum culture then with Klebsiella, on Rocephin, (6) Prediabetes: HbA1C 5.9 in May. Glucose 129 on admission (7) Hyperlipidemia: Continue her usual rosuvastatin dosing via NG tube (8) GERD (gastroesophageal reflux disease): Continue her usual pantoprazole 40mg PO daily (9) Esophageal dysmotility: Aspiration precautions. (10) Hypothyroidism: TSH 1.31 in Aug. Continue levothyroxine 75 mcg PO daily (11) Anxiety: now on sedation scheduled clonazepam (12) DVT prophylaxis: Lovenox 40 q 12 Admission and Anticipated Discharge Date Admission Date: October 15, 2020 Subjective Patient has a startle response but nothing else, all sedation has been held She is overbreathing respiratory rate settings suggesting that she has some brainstem activity. She has a tracheostomy her obtundation is concerning that she may have had some permanent anoxic brain injury CT scan shows sinutitis, no brain injury Review of Systems Review of Systems: Unobtainable due to cognitive status Physical Exam Physical Exam: The patient appeared chronically ill, she remains on ventilated via trachea Vital signs as documented. Lungs are clear to auscultation and appear unlabored Cardiac exam, Rhythm is regular.. No murmurs, rubs or gallops. Abdominal exam reveals normal bowel sounds, soft non tender, no masses Extremities are nonedematous and both pedal pulses are normal. she responds only to noxious stimuli, does not protect face from falling hand Skin is without bruises or rashes Psychologically is without concerns for anxiety or depression. Results & Data Results & Data ([facility]) Vital Signs (Past 12 Hours) Vital Signs Temp Pulse Resp BP Pulse Ox 11/16/20 16:00 98.6 F 90 126/60 90 11/16/20 15:40 96 H 39 H 90 11/16/20 15:39 101 H 134/66 91 11/16/20 15:35 146 H 131/90 11/16/20 15:00 139 H 131/79 89 L 11/16/20 14:01 79 93 11/16/20 14:00 99.5 F 85 125/57 L 90 11/16/20 13:01 83 94 11/16/20 13:00 86 138/67 93 11/16/20 12:00 98.8 F 71 124/58 L 92 11/16/20 11:35 69 42 H 92 11/16/20 11:01 77 92 11/16/20 11:00 83 128/63 89 L 11/16/20 10:01 81 92 11/16/20 10:00 99.1 F 73 120/53 L 92 11/16/20 09:01 67 93 11/16/20 09:00 70 118/57 L 90 11/16/20 08:15 76 37 H 96 11/16/20 08:01 77 93 11/16/20 08:00 99.1 F 79 37 H 126/52 L 93 11/16/20 07:01 93 H 91 11/16/20 07:00 89 124/53 L 87 L PG Care Time/CCT Total # of Minutes Spent Total Time Spent with Patient: Total time spent is greater than 50% in coordination of care (as documented) at patient's floor/unit and/or counseling patient: Coding Level of Care Code 11375 Subseq Hosp Care Lvl 3 Diagnoses Acute respiratory failure with hypoxia J96.01 Pneumonia due to COVID-19 virus U07.1; J12.89 Hypertension I10 Metabolic acidosis E87.2 Sepsis A41.9 Sepsis acute organ dysfunction status: unspecified Sepsis type: sepsis due to unspecified organism Prediabetes R73.03 Hyperlipidemia E78.5 GERD (gastroesophageal reflux disease) K21.9 Esophageal dysmotility K22.4 Hypothyroidism E03.9 Anxiety F41.9 DVT prophylaxis Z29.9 (1) Sepsis Sepsis acute organ dysfunction status: unspecified Sepsis type: sepsis due to unspecified organism Qualified Code(s): A41.9 - Sepsis, unspecified organism
[2020-11-16] MEDS: ASPIRIN 81 MG CHEW PO SCH (21:15)
[2020-11-16] MEDS: FAMOTIDINE 20 MG TAB PO SCH (21:16)
[2020-11-17] MEDS: ARTIFICIAL TEARS OP OINT 3.5 GM TUBE OP SCH ×3 (03:31→20:51)
[2020-11-17] MEDS: hydrALAZINE TAB 50 MG TAB NG SCH ×3 (06:13→20:49)
[2020-11-17] MEDS: LEVOTHYROXINE SODIUM 50 MCG TABLET PO SCH (06:13)
[2020-11-17] MEDS: MEROPENEM 500 MG in SYRINGE 0 ML IV SCH ×4 (06:13→23:20)
--- NOTE | 2020-11-17 08:38 | Hospitalist Progress Note ---
Date of Service November 17, 2020 Assessment & Plan (1) Acute encephalopathy: profoundly impacting progression of hospital stay. Neurology consult 11/16/20: CTH did not show hemorrhagic strokes - may still consider a routine EEG in 3-4 days after holding majority of sedation as below - cnsider MRI brain without contrast to r/o any small/scattered strokes or anoxic injury when able to - continue holding all sedation except for seroquel 25mg bid. Avoid opiates and benzos that can worsen mental status/cause confusion in the elderly. Ok to use ketamine or precedex as needed for agitation if seroquel not working. (2) Acute respiratory failure with hypoxia: Intubated on 10/27 after nearly two weeks of high flow and BIPAP ARDSnet settings with high PEEP and low FiO2 no real improvement in lung compliance when switching from supine to prone. tracheostomy on 11/05 Patient now on CPAP via her trach with a pressure support of 12 PEEP of 8 and FiO2 of 55 he is overbreathing the ventilator rate high dose Decadron added for late ARDS with 20mg daily, then down to 10mg daily until 11/12, then stop ultimate plan was for LTACH, will have trache change 11/18 and consider peg (3) Pneumonia due to COVID-19 virus: stopped Decadron 10/29, resumed higher dose Decadron for late ARDS, complete 11/12 completed course of Remdesivir, LD 10/19 convalescent plasma on 10/16 Prognosis some slight improvement looking into LTACH once more stable sputum culture with Klebsiella, treated with Rocephin (4) Hypertension: on metoprolol 25 q12, Hydralazine 50 q8, amlodipine 10mg daily via OG tube (5) Metabolic acidosis: Resolved (6) Sepsis: Source - COVID-19 +/- possible bacterial PNA completed course of Levaquin currently is on ceftriaxone sputum culture then with Klebsiella, sinusitis on meropenem (7) Prediabetes: HbA1C 5.9 in May. Glucose 129 on admission (8) Hyperlipidemia: Continue her usual rosuvastatin dosing via NG tube (9) GERD (gastroesophageal reflux disease): Continue her usual pantoprazole 40mg PO daily (10) Esophageal dysmotility: Aspiration precautions. (11) Hypothyroidism: TSH 1.31 in Aug. Continue levothyroxine 75 mcg PO daily (12) Anxiety: now on sedation scheduled clonazepam (13) DVT prophylaxis: Lovenox 40 q 12 Admission and Anticipated Discharge Date Admission Date: October 15, 2020 Subjective Patient has now been able to follow some simple commands such as open eyes and mouth, still profoundly weak CT scan shows sinutitis, no brain injury, icu med changed to meropenem Review of Systems Review of Systems: Unobtainable due to reduced consciousness Physical Exam Physical Exam: The patient appeared chronically ill, she remains on ventilated via trachea she is slighlty more awake today Vital signs as documented. Lungs are clear to auscultation and appear unlabored Cardiac exam, Rhythm is regular.. No murmurs, rubs or gallops. Abdominal exam reveals normal bowel sounds, soft non tender, no masses Extremities are nonedematous and both pedal pulses are normal. she responds only to some commands Skin is without bruises or rashes Psychologically is without concerns for anxiety or depression. Results & Data Results & Data ([facility]) Vital Signs (Past 12 Hours) Vital Signs Pulse Resp BP Pulse Ox 11/17/20 06:22 84 155/52 H 95 11/17/20 06:00 80 161/60 H 94 11/17/20 05:00 64 137/58 L 94 11/17/20 04:51 85 32 H 95 11/17/20 04:00 92 H 157/73 H 94 11/17/20 03:00 104 H 145/53 H 92 11/17/20 02:00 80 145/62 H 95 11/17/20 01:30 69 94 11/17/20 01:00 77 147/72 H 95 11/17/20 00:01 78 35 H 94 11/17/20 00:00 78 144/70 H 94 11/16/20 23:00 94 H 153/64 H 94 11/16/20 22:00 74 148/60 H 94 11/16/20 21:00 83 139/66 94 11/16/20 20:39 79 36 H 94 PG Care Time/CCT Total # of Minutes Spent Total Time Spent with Patient: Total time spent is greater than 50% in coordination of care (as documented) at patient's floor/unit and/or counseling patient: Coding Level of Care Code 73924 Subseq Hosp Care Lvl 3 Diagnoses Acute encephalopathy G93.40 Acute respiratory failure with hypoxia J96.01 Pneumonia due to COVID-19 virus U07.1; J12.89 Hypertension I10 Metabolic acidosis E87.2 Sepsis A41.9 Sepsis acute organ dysfunction status: unspecified Sepsis type: sepsis due to unspecified organism Prediabetes R73.03 Hyperlipidemia E78.5 GERD (gastroesophageal reflux disease) K21.9 Esophageal dysmotility K22.4 Hypothyroidism E03.9 Anxiety F41.9 DVT prophylaxis Z29.9 (1) Sepsis Sepsis acute organ dysfunction status: unspecified Sepsis type: sepsis due to unspecified organism Qualified Code(s): A41.9 - Sepsis, unspecified organism
[2020-11-17] MEDS: amLODIPine BESYLATE 5 MG TAB PO SCH (09:19)
[2020-11-17] MEDS: METOPROLOL TARTRATE 25 MG TAB PO SCH ×3 (09:20→20:50)
[2020-11-17] MEDS: INSULIN ASPART 100 UNITS/ML 3 ML PEN SC SCH ×4 (09:20→23:22)
[2020-11-17] MEDS: FAMOTIDINE 20 MG TAB PO SCH ×2 (09:20→20:49)
--- NOTE | 2020-11-17 09:32 | Critical Care Progress Note ---
Date of Service November 17, 2020 Assessment & Plan (1) 2019 novel coronavirus–infected pneumonia (NCIP)#8211;infected pneumonia (NCIP): Impression: 69-year-old female with severe acute hypoxemic respiratory failure intubated due to novel coronavirus with ARDS now status post tracheostomy. PLAN: Neuro: We are minimizing sedation at this point. It appears that her metabolic encephalopathy is improving somewhat. She is opening her eyes spontaneously. Appreciate neurology input. CT head has been ordered for evaluation of potential intracranial hemorrhage. Resp: Continue to wean ventilator as able. secondary to COVID-19 pneumonia Patient got 10 days of dexamethasone. Patient was started on ARDS protocol Decadron which completed 11/12/2020. Will do a trach exchange tomorrow as there is significant purulent drainage. We will hold heparin prior to the trach exchange. CV: History of A. fib with SVTs. Continue heparin drip at this time. We will hold the heparin drip tomorrow at 5 AM for trach exchange. TSH: 0.9 within normal limit 11/10/2020 -Hypertension and atrial fibrillation Continue with 10 mg amlodipine, 50 mg 3 times daily of hydralazine and 25 mg 3 times daily of metoprolol. ID: Patient having severe mucopurulent sputum from around the tracheostomy site. Continue meropenem.. Tracheostomy cultures have been obtained. Staph is growing from the tracheal cultures. Cultures. We will exchange trach tomorrow. GI/Nutrition: NG tube is in place. Continue tube feeds. Will need placement of a PEG tube if the family wishes to pursue continued aggressive measures. Gastroenterology has been consulted. Heme: Monitor H&H Endocrine: Glycemic control per protocol. Continue Synthroid Code Status: DNR. Disposition: ICU at this time and she will likely need LTAC placement in the near future. Overall prognosis extremely poor. Will consult palliative care. --Prophylaxis VTE: Lovenox GI: Pepcid Diet: Tube feeds I have personally spent 38 minutes of critical care time in the direct management of this patient. This is a life/limb threatening event. This includes time spent evaluating patient, direct bedside care, chart review, placing orders, interpretation of diagnostic studies, discussion with consultants, patient, and family members, as well as other required patient management activities. This time is exclusive of all separately billable procedures, and teaching time and separate from and in addition to any other critical care service time. (2) Paroxysmal A-fib: (3) Acute encephalopathy: (4) Tracheitis: Admission and Anticipated Discharge Date Admission Date: October 15, 2020 Subjective Patient is spontaneously opening her eyes today. She continues to have significant purulent drainage around the tracheostomy site. No significant fevers or chills at this time. She remains on a heparin drip. No acute issues overnight. Review of Systems Review of Systems: Unobtainable due to endotracheal tube and Unobtainable due to reduced consciousness Physical Exam Constitutional: WD/WN, vitals as above Eyes: PERRL, conjunctivae normal, anicteric sclerae ENMT: external ear and nose normal, oropharynx normal Neck: Tracheostomy in place with significant mucopurulent drainage. Respiratory: normal respiratory effort, lungs clear to auscultation Cardiovascular: RRR, no murmur, no edema Gastrointestinal (Abdomen): normal bowel sounds, soft, nontender, no hepatosplenomegaly Musculoskeletal: no cyanosis or clubbing, extremities motor strength 5/5 Skin: no rashes, warm and dry Neurologic: Patient is opening her eyes spontaneously and tracking at times. Psychiatric: Unable to assess. Results & Data Results & Data ([facility]) Vital Signs (Past 12 Hours) Vital Signs Pulse Resp BP Pulse Ox 11/17/20 08:00 82 28 H 94 11/17/20 06:22 84 155/52 H 95 11/17/20 06:00 80 161/60 H 94 11/17/20 05:00 64 137/58 L 94 11/17/20 04:51 85 32 H 95 11/17/20 04:00 92 H 157/73 H 94 11/17/20 03:00 104 H 145/53 H 92 11/17/20 02:00 80 145/62 H 95 11/17/20 01:30 69 94 11/17/20 01:00 77 147/72 H 95 11/17/20 00:01 78 35 H 94 11/17/20 00:00 78 144/70 H 94 11/16/20 23:00 94 H 153/64 H 94 11/16/20 22:00 74 148/60 H 94 I reviewed the vital signs, labs and imaging Coding Level of Care Code Critical Care 1st 30-74 mins Diagnoses 2019 novel coronavirus–infected pneumonia (NCIP)#8211;infected pneumonia ([facility]) U07.1; J12.89 Paroxysmal A-fib I48.0 Acute encephalopathy G93.40 Tracheitis J04.10 Time Spent (min) 38
--- NOTE | 2020-11-17 10:10 | Neurology Progress Note ---
Date of Service November 17, 2020 Assessment & Plan (1) Acute encephalopathy: Diane Garcia is a 69 yo woman w/ PMH of hypothyroidism, migraines, morbid obesity, HTN, esophageal dysmotility, anxiety, prediabetes, arthritis, HLD, and COVID c/b ARDS s/p trach placement/sepsis/new onset AFib and ongoing encephalopathy. Neurology consulted given ongoing encephalopathy. # Encephalopathy: has had a prolonged and complicated hospital course with COVID19 infection. Prolonged delirium is a common complication of COVID infections (whether due to direct CARDIOPULMONARY TECHNOLOGIST infection or the medications used for sedation while intubated is yet to be determined). CTH shows no hemorrhage or large territory stroke. 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 - recommend holding all sedation except for seroquel 25mg bid. Avoid opiates and benzos that can worsen mental status/cause confusion in the elderly (would wean off opiates as able to prevent withdrawal but improve AMS). Ok to use ketamine or precedex as needed for agitation if seroquel not working. - treat infections per primary team - once above testing is obtained, will have a better idea on neurological prognosis. Thank you for this interesting consult. Plan of care discussed with primary team. Please call or text questions. (2) Cardiac arrest following intubation: (3) Sepsis: (4) Pneumonia due to COVID-19 virus: Admission and Anticipated Discharge Date Admission Date: October 15, 2020 Subjective NAEs overnight. Nursing reports that she is more awake this morning. CTH obtained on 11/16/20 was stable from 10/15 imaging with no hemorrhages or large territory strokes noted (stable SVID). Review of Systems Review of Systems: Unobtainable due to endotracheal tube (s/p trach without passy-jose valve) and Unobtainable due to reduced consciousness Results & Data ([facility]) Vital Signs (Past 12 Hours) Vital Signs Pulse Resp BP Pulse Ox 11/17/20 08:00 82 28 H 94 11/17/20 06:22 84 155/52 H 95 11/17/20 06:00 80 161/60 H 94 11/17/20 05:00 64 137/58 L 94 11/17/20 04:51 85 32 H 95 11/17/20 04:00 92 H 157/73 H 94 11/17/20 03:00 104 H 145/53 H 92 11/17/20 02:00 80 145/62 H 95 11/17/20 01:30 69 94 11/17/20 01:00 77 147/72 H 95 11/17/20 00:01 78 35 H 94 11/17/20 00:00 78 144/70 H 94 11/16/20 23:00 94 H 153/64 H 94 Exam (Neuro) Physical Exam: General Exam: GEN: NAD, lying in bed CV: RRR, no peripheral edema PULM: Nonlabored respirations on room air. Neuro Exam: MS: Eyes to voice or stimulation. Does not answer orientation questions (is s/p trach). Unable to fully assess language or cognition. Intermittently followed commands. CN: deferred as she is unable to participate in most of the exam due to mental status. Face symmetric. Gaze midline with slight right gaze preference. Unable to follow commands for EOMI. +weak cough/gag. +blink to threat bilaterally MOTOR: Normal bulk, flaccid tone. Able to wiggle toes and briefly smile. REFLEXES: deferred SENSORY: does not withdraw or grimace to noxious stimuli in BUEs, grimace to noxious stimuli in RLE, no withdrawal or grimace to noxious stimuli in LLE COORDINATION: unable to assess given mental status GAIT: deferred given physical status * exam performed by zoom video with the help of nursing due to COVID positive status/lack of appropriate PPE PG Care Time/CCT Total # of Minutes Spent Total Time Spent with Patient: Total time spent is greater than 50% in coordination of care (as documented) at patient's floor/unit and/or counseling patient: Coding Level of Care Code 04355 Subseq Hosp Care Lvl 3 Diagnoses Acute encephalopathy G93.40 Cardiac arrest following intubation I97.89; I46.9 Sepsis A41.9 Sepsis acute organ dysfunction status: unspecified Sepsis type: sepsis due to unspecified organism Pneumonia due to COVID-19 virus U07.1; J12.89 (1) Sepsis Sepsis acute organ dysfunction status: unspecified Sepsis type: sepsis due to unspecified organism Qualified Code(s): A41.9 - Sepsis, unspecified organism
[2020-11-17 10:17] LABS: Basophils # (auto) 0.01 K/uL (0-0.2); Basophils % (auto) 0.1 %; Eosinophils # (auto) 0.16 K/uL (0-0.5); Eosinophils % (auto) 1.5 %; Hematocrit (blood only) 28.9 % (37-47); Hemoglobin 9.5 g/dL (12.0-16.0); Immature Granulocytes # (auto) 0.35 K/uL (0.00-0.02); Immature Granulocytes % (auto) 3.3 %; Lymphocytes # (auto) 1.05 K/uL (1.2-3.4); Lymphocytes % (auto) 9.8 %; Mean Corpuscular Hemoglobin 32.5 pg (25-34); Mean Corpuscular Hgb Conc 32.9 g/dL (32-36); Mean Platelet Volume 8.6 fL (7.4-10.4); Monocytes # (auto) 0.36 K/uL (0.11-0.59); Monocytes % (auto) 3.4 %; Neutrophils # (auto) 8.81 K/uL (1.4-6.5); Neutrophils % (auto) 81.9 %; Nucleated RBC # (auto) 0.03 K/uL (0-0); Nucleated RBC % (auto) 0.3 %; Platelet Count 480 K/uL (130-400); RDW Coefficient of Variation 16.5 % (11.5-14.5); RDW Standard Deviation 58.4 fL (36.4-46.3); Red Blood Count 2.92 M/uL (4.2-5.4); White Blood Count 10.74 K/uL (4.8-10.8)
[2020-11-17 10:30] LABS: Partial Thromboplastin Ratio 0.9; Partial Thromboplastin Time 26.1 Seconds (21.0-31.0)
[2020-11-17 10:41] LABS: BUN Creatinine Ratio 91.7 (10-20); Blood Urea Nitrogen 17 mg/dl (7-18); Calcium 8.7 mg/dl (8.5-10.1); Carbon Dioxide 36 mmol/L (21-32); Chloride 105 mmol/L (98-107); Creatinine Clr Calc Pharmacy 328.5 ml/min; Est GFR (African American) > 150.0; Est GFR (Non-African American) 136.7; Glucose 131 mg/dl (70-99); Magnesium 2.4 mg/dl (1.8-2.4); Potassium 3.5 mmol/L (3.5-5.1); Sodium 142 mmol/L (136-145)
[2020-11-17 10:42] LABS: Phosphorus 2.7 mg/dl (2.5-4.9)
[2020-11-17] MEDS ORDERED: HEPARIN SODIUM/DEXTROSE 25,000 UNITS/500 ML BAG IV SCH ×3 (10:45→11:15)
[2020-11-17] MEDS ORDERED: Heparin IV Low Dose WITH Bolus IV ONE ×2 (11:00→11:15)
[2020-11-17] MEDS ORDERED: Heparin IV Standard *NO* Bolus ONE (11:13)
--- NOTE | 2020-11-17 11:28 | Gastrointestinal Consultation ---
Date of Consultation November 17, 2020 Assessment & Plan (1) Palliative care encounter: (2) Poor fluid intake: -Continue NG tube for now -Await neuro work-up & palliative care/family discussion regarding desire for PEG tube -Supportive care and medical treatment per primary team Further recommendations forthcoming pending above-noted work-up and discussion. Supervising Physician Co-Signing Physician Notes Agree with the findings as documented by GUERDA Myles History of Present Illness Reason for Consultation: Inability to take po Attending Physician: Dov Purcell MD History of Present Illness Patient is a 69 yo female with COVID19 pneumonia. She is being followed by neurology for encephalopathy since being weaned from sedation. Vent weaning ongoing. She is alert and is watching TV but unable to communicate. Per documentation, it appears that her case was being addressed with palliative care and family was to discuss PEG tube. She currently has an NG in place. As for previous abdominal surgery, patient has a history of a cholecystectomy and total abdominal hysterectomy with bilateral salpingo-oophrectomy. Allergies Allergy/AdvReac Type Severity Reaction Status Date / Time Penicillins Allergy Severe RESP Verified 11/15/20 21:01 DISTRESS/HIVES Home Medications Medication Instructions Recorded Confirmed Type Glucosamine Chondroitin 1 cap PO BID 04/03/19 10/15/20 History aspirin [Aspirin Low Dose] 81 mg PO HS 04/03/19 10/15/20 History biotin 5,000 mcg SUBLINGUAL 1200 04/03/19 10/15/20 History calcium carbonate-vitamin D3 1 tab PO BID 04/03/19 10/15/20 History [Calcium 600 + D(3)] cholecalciferol (vitamin D3) 2,000 unit PO 1200 04/03/19 10/15/20 History [Vitamin D3] multivitamin 1 tab PO 1200 04/03/19 10/15/20 History clonazepam 0.5 mg tablet 0.5 mg PO BID PRN #60 tab 09/17/19 10/15/20 Rx ciclopirox 8 % topical solution 1 appln TOP DAILY #6.6 ml 05/26/20 10/15/20 Rx fluticasone propionate 50 1 spray INTRANASAL HS #16 gm 06/15/20 10/15/20 Rx mcg/actuation nasal spray,suspension levothyroxine 75 mcg tablet 75 mcg PO DAILY #90 tab 07/05/20 10/15/20 Rx rosuvastatin 5 mg tablet 5 mg PO .COMPLEX #36 tab 07/08/20 10/15/20 Rx meloxicam 15 mg tablet 15 mg PO DAILY PRN #30 tab 07/28/20 10/15/20 Rx ondansetron HCl 4 mg tablet 4 mg PO Q8H PRN #30 tab 10/11/20 10/15/20 Rx pantoprazole 40 mg PO DAILYBB 10/15/20 10/15/20 History Patient History Medical History Acute encephalopathy COVID-19 Fever GERD (gastroesophageal reflux disease) History of anesthesia reaction difficulty waking Hyperlipidemia Hypotension Hypothyroidism Migraine Obesity (BMI 30-39.9) Osteoarthritis Palliative care encounter Schatzki's ring of distal esophagus Tracheitis Surgical History History of cholecystectomy History of colonoscopy 2004 - - Divertics sigmoid History of dilatation and curettage History of oral surgery permanent bridge placed History of total hysterectomy with bilateral salpingo-oophorectomy (BSO) (2013) History of vaginal surgery bartholin cyst removal History of wisdom tooth extraction Hx of laparoscopy diagnostic Family History Sister Family history of diabetes mellitus Bleeding disorder Grandfather (Paternal) Family hx of colon cancer Father Cardiac disorder Cancer Sister Hypertension Clotting disorder Sinusitis Mother Hypertension Stroke Cancer Sinusitis Other No family history of adverse response to anesthesia Social History Smoking Status: Never smoker Second Hand Exposure: No (father smoked); Hx Alcohol Use: Yes Alcohol type: beer, wine and hard liquor Alcohol Intake Frequency Comment: Social Drinker Hx Substance Use: No Preferred Language: Moldovan Communication Ability: Effective Manager Life Required: No Beliefs That Will Affect Care: None marital status: Current Living Situation: Alone Other Information That Helps Us Care for You: No Feels Safe at Home: Yes Safety Concerns: Feels Safe At This Time Assistive Devices: Oxygen - Continuous Review of Systems Review of Systems: Unobtainable due to cognitive status Physical Exam Constitutional: + ill appearing Respiratory: no respiratory distress Auscultation: + crackles Cardiovascular: Extremities: + edema Gastrointestinal (Abdomen): Inspection/Auscultation: normal bowel sounds Percussion/Palpation: abdomen soft; no guarding Musculoskeletal: Head/Neck/Chest: head atraumatic Neurologic: awake Psychiatric: Orientation: alert Results & Data ([facility]) Vital Signs (Past 12 Hours) Vital Signs Pulse Resp BP Pulse Ox 11/17/20 08:00 82 28 H 94 11/17/20 06:22 84 155/52 H 95 11/17/20 06:00 80 161/60 H 94 11/17/20 05:00 64 137/58 L 94 11/17/20 04:51 85 32 H 95 11/17/20 04:00 92 H 157/73 H 94 11/17/20 03:00 104 H 145/53 H 92 11/17/20 02:00 80 145/62 H 95 11/17/20 01:30 69 94 11/17/20 01:00 77 147/72 H 95 11/17/20 00:01 78 35 H 94 11/17/20 00:00 78 144/70 H 94
[2020-11-17] MEDS ORDERED: Heparin Adult LOW DOSE Wt-Based Dextrose 5% 25,000 units/500 mL IV SCH (11:30)
[2020-11-17] MEDS ORDERED: HEPARIN IV BOLUS 4,000 UNITS in SYRINGE 0 ML IV ONE (11:30)
[2020-11-17] MEDS: MULTI VIT W/MINERALS LIQUID 15 ML UDP PO SCH (12:22)
[2020-11-17] MEDS: fentaNYL citrate 100 MCG/2 ML VIAL IV PRN (13:00)
--- NOTE | 2020-11-17 14:54 | Electrocardiogram Report ---
Test Reason : Blood Pressure : / mmHG Vent. Rate : 166 BPM Atrial Rate : 441 BPM P-R Int : 000 ms QRS Dur : 080 ms QT Int : 270 ms P-R-T Axes : 000 058 251 degrees QTc Int : 448 ms Poor data quality, interpretation may be adversely affected Atrial fibrillation with rapid ventricular response Marked ST abnormality, possible inferolateral subendocardial injury Abnormal ECG When compared with ECG of 15-NOV-2020 11:41, (unconfirmed) Atrial fibrillation has replaced Sinus rhythm Vent. rate has increased BY [address] now depressed in Lateral leads Inverted T waves have replaced nonspecific T wave abnormality in Inferior leads Confirmed by Jono Blankenship ([id number]) on 11/17/2020 2:54:43 PM Referred By: REFERRED SELF Confirmed By:Valdez Blankenship
[2020-11-17] MEDS: PEPTAMEN INTENSE VHP 1.0 CAL 1,000 ML BAG OG SCH (16:28)
[2020-11-17 18:57] LABS: Partial Thromboplastin Ratio 1.1; Partial Thromboplastin Time 31.4 Seconds (21.0-31.0)
[2020-11-17] MEDS ORDERED: HEPARIN IV BOLUS 3,000 UNITS in SYRINGE 0 ML IV ONE (20:00)
[2020-11-17] MEDS: ASPIRIN 81 MG CHEW PO SCH (20:54)
[2020-11-18] MEDS: fentaNYL citrate 100 MCG/2 ML VIAL IV PRN (01:28)
[2020-11-18 03:27] LABS: Partial Thromboplastin Ratio 1.2; Partial Thromboplastin Time 32.5 Seconds (21.0-31.0)
[2020-11-18] MEDS ORDERED: HEPARIN IV BOLUS 3,000 UNITS in SYRINGE 0 ML IV STA (04:14)
[2020-11-18] MEDS ORDERED: [UNRECOGNIZED DRUG - REMARK] ONE (05:00)
[2020-11-18] MEDS: MEROPENEM 500 MG in SYRINGE 0 ML IV SCH (05:34)
[2020-11-18] MEDS: INSULIN ASPART 100 UNITS/ML 3 ML PEN SC SCH ×3 (05:41→18:15)
[2020-11-18 06:40] LABS: Basophils # (auto) 0.03 K/uL (0-0.2); Basophils % (auto) 0.2 %; Eosinophils # (auto) 0.24 K/uL (0-0.5); Hematocrit (blood only) 29.7 % (37-47); Hemoglobin 9.6 g/dL (12.0-16.0); Immature Granulocytes # (auto) 0.43 K/uL (0.00-0.02); Immature Granulocytes % (auto) 3.5 %; Lymphocytes # (auto) 0.65 K/uL (1.2-3.4); Lymphocytes % (auto) 5.3 %; Mean Corpuscular Hgb Conc 32.3 g/dL (32-36); Mean Platelet Volume 9.3 fL (7.4-10.4); Monocytes # (auto) 1.07 K/uL (0.11-0.59); Monocytes % (auto) 8.7 %; Neutrophils # (auto) 9.86 K/uL (1.4-6.5); Neutrophils % (auto) 80.3 %; Nucleated RBC # (auto) 0.03 K/uL (0-0); Nucleated RBC % (auto) 0.3 %; Platelet Count 563 K/uL (130-400); RDW Coefficient of Variation 16.3 % (11.5-14.5); RDW Standard Deviation 58.2 fL (36.4-46.3); White Blood Count 12.28 K/uL (4.8-10.8)
[2020-11-18 07:15] LABS: Calcium 8.7 mg/dl (8.5-10.1); Creatinine Clr Calc Pharmacy 271.3 ml/min; Est GFR (African American) 148.8; Est GFR (Non-African American) 128.4; Magnesium 2.4 mg/dl (1.8-2.4); Phosphorus 2.6 mg/dl (2.5-4.9); Potassium 3.5 mmol/L (3.5-5.1)
[2020-11-18] MEDS ORDERED: VANCOMYCIN CONSULT ACTIVE PRN (09:08)
--- NOTE | 2020-11-18 09:10 | Critical Care Progress Note ---
Date of Service November 18, 2020 Assessment & Plan (1) 2019 novel coronavirus–infected pneumonia (NCIP)#8211;infected pneumonia (NCIP): Impression: 69-year-old female with severe acute hypoxemic respiratory failure intubated due to novel coronavirus with ARDS now status post tracheostomy. PLAN: Neuro: Her metabolic encephalopathy and hypoxemic encephalopathy continues to improve. We will hold off on MRI imaging at this time. We will hold off on EEG. Appreciate neurology input. She will need physical therapy and Occupational Therapy. 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 Resp: She is currently on pressure support and doing well. We will continue to wean ventilator as able. Tracheostomy exchange was completed on 11/18/2020. Continues to have significant mucopurulent secretions. Currently on meropenem. She is growing staph aureus from the tracheostomy site. We will start her on vancomycin and discontinue meropenem. CV: She has paroxysmal atrial fibrillation during this hospital admission. Continue heparin drip. Continue rate control with metoprolol. Continue amlodipine and hydralazine for blood pressure. TSH: 0.9 within normal limit 11/10/2020 ID: I switched her to vancomycin and she is growing MRSA from the secretions around the tracheostomy site. She likely has tracheitis. Tracheostomy tube exchange was completed 11/18.. GI/Nutrition: GI is consulted for PEG tube placement. Family would like to proceed with PEG tube and LTAC placement. Heme: Monitor H&H Endocrine: Glycemic control per protocol. Continue Synthroid Code Status: DNR. Disposition: ICU at this time and she will likely need LTAC placement in the near future. Overall prognosis guarded. --Prophylaxis VTE: Heparin drip GI: Pepcid Diet: Tube feeds I have personally spent 41 minutes of critical care time in the direct management of this patient. This is a life/limb threatening event. This includes time spent evaluating patient, direct bedside care, chart review, placing orders, interpretation of diagnostic studies, discussion with consultants, patient, and family members, as well as other required patient management activities. This time is exclusive of all separately billable procedures, and teaching time and separate from and in addition to any other critical care service time. (2) Paroxysmal A-fib: (3) Acute encephalopathy: (4) Tracheitis: Admission and Anticipated Discharge Date Admission Date: October 15, 2020 Subjective Patient is awake today and following commands intermittently. She grimaces to pain when I bend her knees and hips. She did nod that she was having pain when asked. We change her tracheostomy today without any significant issues. Continues to have mucopurulent secretions around the tracheostomy site. Review of Systems Review of Systems: Unobtainable due to reduced consciousness Physical Exam Constitutional: WD/WN, vitals as above Eyes: PERRL, conjunctivae normal, anicteric sclerae ENMT: external ear and nose normal, oropharynx normal Neck: Tracheostomy in place with significant mucopurulent drainage. Respiratory: normal respiratory effort, lungs clear to auscultation Cardiovascular: RRR, no murmur, no edema Gastrointestinal (Abdomen): normal bowel sounds, soft, nontender, no hepatosplenomegaly Musculoskeletal: no cyanosis or clubbing, extremities motor strength 5/5 Skin: no rashes, warm and dry Neurologic: Patient is opening her eyes spontaneously and tracking at times. Psychiatric: Unable to assess. Results & Data Results & Data ([facility]) Vital Signs (Past 12 Hours) Vital Signs Temp Pulse Resp BP Pulse Ox 11/18/20 08:30 83 40 H 93 11/18/20 06:11 99.5 F 92 H 145/64 H 92 11/18/20 06:00 99.3 F 108 H 89 L 11/18/20 05:01 99.9 F H 88 94 11/18/20 05:00 100.0 F H 86 139/60 94 11/18/20 04:37 80 39 H 91 11/18/20 04:01 99.3 F 105 H 28 H 91 11/18/20 04:00 99.3 F 99 H 32 H 142/64 H 91 11/18/20 03:31 99.3 F 94 H 32 H 133/60 97 11/18/20 03:00 99.5 F 95 H 26 H 144/60 H 91 11/18/20 02:00 99.9 F H 80 127/51 L 92 11/18/20 01:22 100.4 F H 76 167/78 H 91 11/18/20 01:00 28 H 11/18/20 00:00 88 28 H 128/56 L 93 11/17/20 23:02 73 32 H 92 12/30/20 23:00 74 28 H 129/54 L 92 11/17/20 22:00 85 26 H 128/50 L 92 I reviewed the vital signs, labs and imaging. Coding Level of Care Code Critical Care 1st 30-74 mins Diagnoses 2019 novel coronavirus–infected pneumonia (NCI)#8211;infected pneumonia (NCIP) U07.1; J12.89 Paroxysmal A-fib I48.0 Acute encephalopathy G93.40 Tracheitis J04.10 Time Spent (min) 41
[2020-11-18] MEDS: ARTIFICIAL TEARS OP OINT 3.5 GM TUBE OP SCH ×2 (09:20→21:00)
--- NOTE | 2020-11-18 09:43 | Communication Note ---
Date of Service: November 18, 2020 Per intensive care team/pulmonology the patient's family wishes to proceed with a PEG tube. Dr. Ramírez will discuss further with family and personally examine the patient's abdomen. If appropriate based on physical exam, placement will be attempted next week. Attending Addendum: Patient evaluated at bedside, unfortunately she is not a good candidate for an endoscopic PEG tube placement due to large body habitus. Spoke to her family member/HIPAA contact and conveyed this as well, she understood. Recommend surgical evaluation for PEG tube placement at this time. Kei Ramírez MD Gastroenterology
[2020-11-18] MEDS ORDERED: VANCOMYCIN HCL 2,000 MG in SODIUM CHLORIDE 0.9% 500 ML IV ONE (09:45)
[2020-11-18] MEDS: LEVOTHYROXINE SODIUM 50 MCG TABLET PO SCH (10:01)
[2020-11-18] MEDS: amLODIPine BESYLATE 5 MG TAB PO SCH (10:01)
[2020-11-18] MEDS: hydrALAZINE TAB 50 MG TAB NG SCH ×3 (10:02→21:00)
[2020-11-18] MEDS: METOPROLOL TARTRATE 25 MG TAB PO SCH ×3 (10:02→21:00)
[2020-11-18] MEDS: FAMOTIDINE 20 MG TAB PO SCH ×2 (10:02→21:00)
--- NOTE | 2020-11-18 11:40 | Electrocardiogram Report ---
Test Reason : Blood Pressure : / mmHG Vent. Rate : 103 BPM Atrial Rate : 103 BPM P-R Int : 140 ms QRS Dur : 074 ms QT Int : 294 ms P-R-T Axes : 042 052 -03 degrees QTc Int : 385 ms Sinus tachycardia with occasional Premature ventricular complexes and PACs fusion beats Nonspecific T wave abnormality Abnormal ECG When compared with ECG of 06-NOV-2020 10:39, Premature ventricular complexes are now Present Nonspecific T wave abnormality, worse in Lateral leads QT has shortened Confirmed by Jono Blankenship ([id number]) on 11/18/2020 11:39:54 AM Referred By: REFERRED SELF Confirmed By:Valdez Blankenship
[2020-11-18] MEDS ORDERED: POTASSIUM CHLORIDE / WTR 10 MEQ/100 ML PLCT IV SCH (12:00)
[2020-11-18] MEDS ORDERED: POTASSIUM CHLORIDE 20 MEQ/15 ML UDC NG SCH (12:00)
--- NOTE | 2020-11-18 12:14 | Pharmacy Report ---
Pharmacy Abx Dose Short Note - Date of Service November 18, 2020 - Assessment & Plan Assessment * 69 year old F admitted to ICU for COVID19 pneumonia. She has developed a tracheitis and is growing MRSA in her tracheostomy drainage. Trach exchange performed this AM. * Pharmacy has been consulted to dose VANCOMYCIN IV. Meropenem has been stopped. * Renal fxn cannot be accurately estimated in this patient given low level of SCr and obesity. UOP reported to be 0.3-0.5mL/kg/hr over last 48 hrs. * Ceftaroline would be better suited to more reliably and quickly achieve therapeutic levels of MRSA SSTI / pulm infxn in the patient population - would encourage consideration of this alternative abx choice Plan Vancomycin * 2000mg (20mg/kg) loading dose given this AM. Given risks associated with subtherapeutic/supratherapeutic vancomycin dosing for multiple days in a patient such as this, will instead order a peak and random level ~ 8 hrs apart to better estimate patient specific parameters. * Will begin Vancomycin 1250mg (~12.5mg/kg) IV Q 8 hrs this evening after random level obtained. * Pharmacist working tomorrow AM can f/u on peak and trough levels to determine if the above maintenance dose appropriate * Goal trough level for pulm infxn and organism w/ NEHAL of 2 : 15 to 20 mcg/mL * Patient is not a candidate for AUC dosing method given obesity and unknown renal fxn Pharmacy will continue to follow and will adjust dose/frequency as necessary. Thank you.
[2020-11-18] MEDS ORDERED: HEPARIN SOD (PORCINE) 1000 UNIT/ML 10 ML VIAL IV ONE (12:15)
[2020-11-18] MEDS: MULTI VIT W/MINERALS LIQUID 15 ML UDP PO SCH (12:30)
[2020-11-18] MEDS: Heparin Adult LOW DOSE Wt-Based Dextrose 5% 25,000 units/500 mL IV SCH ×2 (12:30→19:52)
[2020-11-18] MEDS ORDERED: VANCOMYCIN PEAK REMINDER 0.1 ML IV ONE (14:00)
--- NOTE | 2020-11-18 16:16 | Hospitalist Progress Note ---
Date of Service November 18, 2020 Assessment & Plan (1) Acute encephalopathy: improving still with weakness, alertness and command responses are improving daily Neurology consult 11/16/20: CTH did not show hemorrhagic strokes - may still consider a routine EEG in 3-4 days after holding majority of sedation as below - consider MRI brain without contrast to r/o any small/scattered strokes or anoxic injury when able to - continue holding all sedation except for seroquel 25mg bid. Avoid opiates and benzos that can worsen mental status/cause confusion in the elderly. Ok to use ketamine or precedex as needed for agitation if Seroquel not working. (2) Acute respiratory failure with hypoxia: Intubated on 10/27 after nearly two weeks of high flow and BIPAP ARDSnet settings with high PEEP and low FiO2 no real improvement in lung compliance when switching from supine to prone. tracheostomy on 11/05. trach change 11/18 Patient now on CPAP via her trach with a pressure support of 12 PEEP of 8 and FiO2 of 55 he is overbreathing the ventilator rate high dose Decadron added for late ARDS with 20mg daily, then down to 10mg daily until 11/12, then stop ultimate plan was for LTACH, did have trache change 11/18 and consider peg (3) Pneumonia due to COVID-19 virus: stopped Decadron 10/29, resumed higher dose Decadron for late ARDS, complete 11/12 completed course of Remdesivir, LD 10/19 convalescent plasma on 10/16 Prognosis some slight improvement looking into LTACH once more stable sputum culture with Klebsiella, treated with Rocephin transiently on meropenen, now change to vanco given some purulent material aroung trach, and also covers sinusitis seen on CT (4) Afib: anticoagulated with heparin gtt rate controlled with metoprolol tartrate eventually change to po succinate when able (5) Hypertension: on metoprolol 25 q12, Hydralazine 50 q8, amlodipine 10mg daily via OG tube (6) Metabolic acidosis: Resolved (7) Sepsis: Source - COVID-19 +/- possible bacterial PNA completed course of Levaquin currently is on ceftriaxone sputum culture then with Klebsiella, sinusitis on vancomycin (8) Prediabetes: HbA1C 5.9 in May. Glucose 129 on admission (9) Hyperlipidemia: Continue her usual rosuvastatin dosing via NG tube (10) GERD (gastroesophageal reflux disease): Continue her usual pantoprazole 40mg PO daily (11) Esophageal dysmotility: Aspiration precautions. (12) Hypothyroidism: TSH 1.31 in Aug. Continue levothyroxine 75 mcg PO daily (13) Anxiety: (14) DVT prophylaxis: on heparin gtt for afib Admission and Anticipated Discharge Date Admission Date: October 15, 2020 Subjective Patient continues to follow some simple commands such as open eyes and mouth, still profoundly weak likely icu myopahty CT scan shows sinutitis, no brain injury, icu med changed to meropenem Review of Systems Review of Systems: Unobtainable due to cognitive status Physical Exam Physical Exam: The patient appeared chronically ill, she remains on ventilated via trachea, trach change 11/18, some purulence around trach she continues to have improved mental status daily Vital signs as documented. Lungs are coarse to auscultation bilaterally Cardiac exam, Rhythm is regular.. No murmurs, rubs or gallops. Abdominal exam reveals normal bowel sounds, soft non tender, no masses Extremities are mildly edematous she responds to commands Results & Data Results & Data ([facility]) Vital Signs (Past 12 Hours) Vital Signs Temp Pulse Resp BP Pulse Ox 11/18/20 11:00 99.5 F 85 36 H 133/60 94 11/18/20 10:00 99.1 F 87 139/68 94 11/18/20 09:00 99.7 F H 80 138/64 93 11/18/20 08:30 83 40 H 93 11/18/20 08:00 99.1 F 83 140/71 95 11/18/20 07:00 99.9 F H 69 136/55 L 93 11/18/20 06:11 99.5 F 92 H 145/64 H 92 11/18/20 06:00 99.3 F 108 H 89 L 11/18/20 05:01 99.9 F H 88 94 11/18/20 05:00 100.0 F H 86 139/60 94 11/18/20 04:37 80 39 H 91 PG Care Time/CCT Total # of Minutes Spent Total Time Spent with Patient: Total time spent is greater than 50% in coordination of care (as documented) at patient's floor/unit and/or counseling patient: Coding Level of Care Code 32072 Subseq Hosp Care Lvl 3 Diagnoses Acute encephalopathy G93.40 Acute respiratory failure with hypoxia J96.01 Pneumonia due to COVID-19 virus U07.1; J12.89 Afib I48.91 Hypertension I10 Metabolic acidosis E87.2 Sepsis A41.9 Sepsis acute organ dysfunction status: unspecified Sepsis type: sepsis due to unspecified organism Prediabetes R73.03 Hyperlipidemia E78.5 GERD (gastroesophageal reflux disease) K21.9 Esophageal dysmotility K22.4 Hypothyroidism E03.9 Anxiety F41.9 DVT prophylaxis Z29.9 (1) Sepsis Sepsis acute organ dysfunction status: unspecified Sepsis type: sepsis due to unspecified organism Qualified Code(s): A41.9 - Sepsis, unspecified organism
--- NOTE | 2020-11-18 17:05 | Palliative Care Progress Note ---
Date of Service November 18, 2020 Assessment & Plan (1) Palliative care encounter: Patient is showing more and more signs of interacting. She is able to open her eyes now, and for me, was reliable with her responses. I told her what has happened to her and where she is at in her medical course. Pt remains intubated via her trach and is on an FiO2 of 0.50. I asked her to close her eyes to me to respond to questions and she did. I asked her to close her eyes for yes answers. I asked her if she was scared and she closed her eyes. I gave her reassurance of her progress compared to last week. Still will need family to decide if they would want to pursue a PEG tube. Suggest that nursing and providers do as much as possible to orient her with day/night wake cycles, lights off at night, telling her what time it is when we enter the room, etc. Palliative care will follow. (2) Acute encephalopathy: (3) Pneumonia due to COVID-19 virus: (4) Hypoxia: Admission and Anticipated Discharge Date Admission Date: October 15, 2020 Subjective Patient continues to follow some simple commands such as open eyes and mouth, still profoundly weak likely icu myopahty CT scan shows sinutitis, no brain injury, icu med changed to meropenem Review of Systems Review of Systems: Unobtainable due to cognitive status Physical Exam Constitutional: + ill appearing and + frail appearing Respiratory: Auscultation: + diminished lung sounds Cardiovascular: Rate/Rhythm: regular rhythm and + tachycardic Gastrointestinal (Abdomen): normal bowel sounds, soft, nontender, no hepatosplenomegaly Skin: + pallor Psychiatric: A+Ox3, euthymic affect Results & Data ([facility]) Vital Signs (Past 12 Hours) Vital Signs Temp Pulse Resp BP Pulse Ox 11/18/20 11:00 37.5 C 85 36 H 133/60 94 11/18/20 10:00 37.3 C 87 139/68 94 11/18/20 09:00 37.6 C H 80 138/64 93 11/18/20 08:30 83 40 H 93 11/18/20 08:00 37.3 C 83 140/71 95 11/18/20 07:00 37.7 C H 69 136/55 L 93 11/18/20 06:11 37.5 C 92 H 145/64 H 92 12/31/20 06:00 37.4 C 108 H 89 L 11/18/20 05:01 37.7 C H 88 94 11/18/20 05:00 37.8 C H 86 139/60 94 PG Care Time/CCT Total # of Minutes Spent Total Time Spent with Patient: Total time spent is greater than 50% in coordination of care (as documented) at patient's floor/unit and/or counseling patient: 35 Coding Level of Care Code 84872 Subseq Hosp Care Lvl 3 Diagnoses Palliative care encounter Z51.5 Acute encephalopathy G93.40 Pneumonia due to COVID-19 virus U07.1; J12.89 Hypoxia R09.02 Time Spent (min) 35 Time Spent Midlevel Total time spent 35 minutes with > 50% of that time spent assessing the patient, discussing goals of care and collaborating IDT
[2020-11-18] MEDS: PEPTAMEN INTENSE VHP 1.0 CAL 1,000 ML BAG OG SCH (18:14)
[2020-11-18 19:49] LABS: Partial Thromboplastin Ratio 1.4; Partial Thromboplastin Time 39.4 Seconds (21.0-31.0)
[2020-11-18] MEDS ORDERED: VANCOMYCIN HCL 1,500 MG in SODIUM CHLORIDE 0.9% 500 ML IV SCH (20:00)
[2020-11-18] MEDS: ASPIRIN 81 MG CHEW PO SCH (21:03)
[2020-11-19] MEDS: INSULIN ASPART 100 UNITS/ML 3 ML PEN SC SCH ×4 (01:02→18:00)
[2020-11-19 02:14] LABS: Hemoglobin 9.9 g/dL (12.0-16.0); Mean Corpuscular Hemoglobin 31.7 pg (25-34); Mean Corpuscular Hgb Conc 31.9 g/dL (32-36); Mean Corpuscular Volume 99.4 fL (80-100); Mean Platelet Volume 8.8 fL (7.4-10.4); Nucleated RBC # (auto) 0.05 K/uL (0-0); Nucleated RBC % (auto) 0.3 %; Platelet Count 502 K/uL (130-400); RDW Coefficient of Variation 16.5 % (11.5-14.5); RDW Standard Deviation 58.2 fL (36.4-46.3); Red Blood Count 3.12 M/uL (4.2-5.4)
[2020-11-19 02:24] LABS: Partial Thromboplastin Ratio 1.4; Partial Thromboplastin Time 40.4 Seconds (21.0-31.0)
[2020-11-19 02:31] LABS: ALC (manual) 0.92 K/uL (1.2-3.4); ANC (manual) 11.13 K/uL (1.4-6.5); Basophils # (manual) 0.12 K/uL (0-0.2); Basophils % (manual) 0.9 %; Calcium 8.8 mg/dl (8.5-10.1); Eosinophils # (manual) 0.22 K/uL (0-0.5); Eosinophils % (manual) 1.7 %; Est GFR (African American) 142.9; Est GFR (Non-African American) 123.3; Lymphocytes # (manual) 0.92 K/uL (1.2-3.4); Magnesium 2.3 mg/dl (1.8-2.4); Monocytes # (manual) 0.69 K/uL (0.11-0.59); Monocytes % (manual) 5.2 %; Myelocytes # (manual) 0.12 K/uL (0-0); Myelocytes % (manual) 0.9 %; Neutrophils # (manual) 11.13 K/uL (1.4-6.5); Neutrophils % (manual) 84.3 %; Phosphorus 2.1 mg/dl (2.5-4.9); Potassium 3.8 mmol/L (3.5-5.1)
[2020-11-19] MEDS: LEVOTHYROXINE SODIUM 50 MCG TABLET PO SCH (06:00)
[2020-11-19] MEDS: hydrALAZINE TAB 50 MG TAB NG SCH ×3 (06:01→21:29)
[2020-11-19] MEDS: fentaNYL citrate 100 MCG/2 ML VIAL IV PRN ×2 (06:50→23:01)
[2020-11-19] MEDS: ARTIFICIAL TEARS OP OINT 3.5 GM TUBE OP SCH ×2 (08:15→21:27)
[2020-11-19] MEDS: ROSUVASTATIN CALCIUM 5 MG TAB PO SCH (08:15)
[2020-11-19] MEDS: METOPROLOL TARTRATE 25 MG TAB PO SCH ×3 (08:16→21:29)
[2020-11-19] MEDS: amLODIPine BESYLATE 5 MG TAB PO SCH (08:16)
[2020-11-19] MEDS: FAMOTIDINE 20 MG TAB PO SCH ×2 (08:17→21:28)
[2020-11-19 08:42] LABS: Partial Thromboplastin Ratio 1.3; Partial Thromboplastin Time 36.7 Seconds (21.0-31.0)
[2020-11-19] MEDS ORDERED: VANCOMYCIN HCL 2,000 MG in SODIUM CHLORIDE 0.9% 500 ML IV ONE (08:45)
--- NOTE | 2020-11-19 08:58 | Pharmacy Report ---
Pharmacy Abx Dose Short Note - Date of Service November 19, 2020 - Assessment & Plan Assessment * 69 year old F admitted to ICU for COVID19 pneumonia. She has developed a tracheitis and is growing MRSA in her tracheostomy drainage. Trach exchange performed on 11/18. * Pharmacy has been consulted to dose IV vancomycin. * Renal fxn cannot be accurately estimated in this patient given low level of SCr and obesity. UOP reported to be ~0.3 mL/kg/hr yesterday. * Ceftaroline would be better suited to more reliably and quickly achieve therapeutic levels of MRSA SSTI / pulm infxn in the patient population - would encourage consideration of this alternative abx choice. * Vancomycin peak level was 24.1 mcg/mL following loading dose and trough level was 11.3 mcg/mL 8 hours following loading dose. Using this information, calculated patient's elimination rate constant to be ~0.09 hr-1 and t1/2 to be ~7 hrs. Therefore, patient should have therapeutic troughs with every 8 hour dosing. * Unfortunately, patient's maintenance dose was scheduled to start this evening rather than last evening. Therefore, patient has not received any vancomycin since loading dose on 11/18. Using calculated ke, determined patient's current vancomycin level to be ~ 4 mcg/mL. Plan Vancomycin * Given patient's estimated vancomycin level of 4 mcg/mL this morning, electing to reload patient with a 2000 mg IV dose x 1 (20 mg/kg). * Will start maintenance dose of 1250 mg (12.5 mg/kg) IV every 8 hours following loading dose. * Goal trough level for pulm infxn and organism w/ NEHAL of 2 : 15 to 20 mcg/mL. * Will plan for a trough on the morning of 11/20 which will be prior to the 3rd dose. Of note, this will be prior to steady state but should allow pharmacist to determine if every 8 hour maintenance dosing is truly appropriate. * Patient is not a candidate for AUC dosing method given obesity and unknown renal fxn. Pharmacy will continue to follow and will adjust dose/frequency as necessary. Thank you.
[2020-11-19] MEDS ORDERED: HEPARIN IV BOLUS 3,000 UNITS in SYRINGE 0 ML IV ONE (09:00)
[2020-11-19] MEDS ORDERED: POTASSIUM PHOS 3 MMOL/1 ML INFUSION IV STA (09:57)
[2020-11-19] MEDS ORDERED: POTASSIUM PHOSPHATE 15 MMOL in SODIUM CHLORIDE 0.9% 250 ML IV ONE (10:00)
[2020-11-19] MEDS ORDERED: PANTOprazole 80 MG in DEXTROSE 5% 100 ML IV ONE (10:34)
[2020-11-19] MEDS ORDERED: PANTOPRAZOLE BOLUS/DRIP 1 EA IV STA (10:34)
[2020-11-19 11:07] LABS: Basophils # (auto) 0.06 K/uL (0-0.2); Basophils % (auto) 0.5 %; Eosinophils # (auto) 0.33 K/uL (0-0.5); Eosinophils % (auto) 2.5 %; Hematocrit (blood only) 30.1 % (37-47); Hemoglobin 9.5 g/dL (12.0-16.0); Immature Granulocytes # (auto) 0.64 K/uL (0.00-0.02); Immature Granulocytes % (auto) 4.9 %; Lymphocytes # (auto) 0.78 K/uL (1.2-3.4); Lymphocytes % (auto) 5.9 %; Mean Corpuscular Hemoglobin 31.4 pg (25-34); Mean Corpuscular Volume 99.3 fL (80-100); Monocytes # (auto) 1.27 K/uL (0.11-0.59); Monocytes % (auto) 9.7 %; Neutrophils # (auto) 10.05 K/uL (1.4-6.5); Neutrophils % (auto) 76.5 %; Nucleated RBC # (auto) 0.08 K/uL (0-0); Nucleated RBC % (auto) 0.6 %; Platelet Count 527 K/uL (130-400); RDW Coefficient of Variation 16.4 % (11.5-14.5); RDW Standard Deviation 58.8 fL (36.4-46.3); Red Blood Count 3.03 M/uL (4.2-5.4); White Blood Count 13.13 K/uL (4.8-10.8)
[2020-11-19] MEDS: PANTOprazole 40 MG in DEXTROSE 5% 100 ML IV SCH ×3 (11:10→21:24)
[2020-11-19 11:23] LABS: Mean Corpuscular Hgb Conc 31.6 g/dL (32-36)
--- NOTE | 2020-11-19 11:52 | Critical Care Progress Note ---
Date of Service November 19, 2020 Assessment & Plan (1) 2018 novel coronavirus–infected pneumonia (NCIP)#8211;infected pneumonia (NCIP): Impression: 69-year-old female with severe acute hypoxemic respiratory failure intubated due to novel coronavirus with ARDS now status post tracheostomy. PLAN: Neuro: Her metabolic encephalopathy and hypoxemic encephalopathy continues to improve. We will hold off on MRI imaging at this time. We will hold off on EEG. Appreciate neurology input. She will need physical therapy and Occupational Therapy. 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 Resp: She is currently on pressure support and doing well. We will continue to wean ventilator as able. Tracheostomy exchange was completed on 11/18/2020. Continues to have significant mucopurulent secretions. Currently on meropenem. She is growing staph aureus from the tracheostomy site. Continue vancomycin. CV: She has paroxysmal atrial fibrillation during this hospital admission. Holding the heparin drip at this time due to hematochezia. Continue rate control with metoprolol. Continue amlodipine and hydralazine for blood pressure. TSH: 0.9 within normal limit 11/10/2020 ID: Continue vancomycin for MRSA in the sputum and tracheostomy site. Tracheostomy exchange occurred on 11/18. GI/Nutrition: GI is consulted for PEG tube placement. Family would like to proceed with PEG tube and LTAC placement. She has evidence of hematochezia. Started on Protonix drip and held heparin drip. Hemoglobin stable. Heme: Monitor H&H. She has evidence of thrombocytosis likely reactive from Covid. Holding heparin drip as noted above. Endocrine: Glycemic control per protocol. Continue Synthroid Code Status: DNR. Disposition: ICU at this time and she will likely need LTAC placement in the near future. Overall prognosis guarded. --Prophylaxis VTE: Heparin drip on hold GI: Pepcid Diet: We will hold tube feeds. I have personally spent 42 minutes of critical care time in the direct management of this patient. This is a life/limb threatening event. This includes time spent evaluating patient, direct bedside care, chart review, placing orders, interpretation of diagnostic studies, discussion with consultants, patient, and family members, as well as other required patient management activities. This time is exclusive of all separately billable procedures, and teaching time and separate from and in addition to any other critical care service time. (2) Paroxysmal A-fib: (3) Acute encephalopathy: (4) Tracheitis: (5) MRSA (methicillin resistant staph aureus) culture positive: Admission and Anticipated Discharge Date Admission Date: October 15, 2020 Subjective Patient continues to follow commands intermittently. Continues with significant mucopurulent drainage around the tracheostomy site. Nursing noted significant bloody bowel movement with bright red blood per rectum. Hemodynamically stable at this time. She is on pressure support trials. Review of Systems Review of Systems: Unobtainable due to reduced consciousness Physical Exam Constitutional: WD/WN, vitals as above Eyes: PERRL, conjunctivae normal, anicteric sclerae ENMT: external ear and nose normal, oropharynx normal Neck: Tracheostomy in place with significant mucopurulent drainage. Respiratory: normal respiratory effort, lungs clear to auscultation Cardiovascular: RRR, no murmur, no edema Gastrointestinal (Abdomen): normal bowel sounds, soft, nontender, no hepatosplenomegaly Musculoskeletal: no cyanosis or clubbing, extremities motor strength 5/5 Skin: no rashes, warm and dry Neurologic: Patient is opening her eyes spontaneously and tracking at times. Psychiatric: Unable to assess. Results & Data Results & Data ([facility]) Vital Signs (Past 12 Hours) Vital Signs Temp Pulse Resp BP Pulse Ox 11/19/20 11:39 78 30 H 95 11/19/20 09:31 99.3 F 11/19/20 08:02 88 30 H 94 11/19/20 08:00 103 H 145/66 H 97 11/19/20 07:00 73 112/57 L 93 11/19/20 04:00 91 H 125/55 L 94 11/19/20 03:01 61 95 11/19/20 03:00 64 121/48 L 95 11/19/20 02:49 63 28 H 95 11/19/20 02:00 104 H 113/53 L 94 11/19/20 01:01 77 94 11/19/20 01:00 80 126/56 L 94 11/19/20 00:00 76 120/56 L 95 I reviewed vital signs, labs and imaging Coding Level of Care Code Critical Care 1st 30-74 mins Diagnoses 2019 novel coronavirus–infected pneumonia (NCIP)#8211;infected pneumonia (NCIP) U07.1; J12.89 Paroxysmal A-fib I48.0 Acute encephalopathy G93.40 Tracheitis J04.10 MRSA (methicillin resistant staph aureus) culture positive Z22.322 Time Spent (min) 42
[2020-11-19] MEDS: MULTI VIT W/MINERALS LIQUID 15 ML UDP PO SCH (12:24)
[2020-11-19] MEDS: PEPTAMEN INTENSE VHP 1.0 CAL 1,000 ML BAG OG SCH (13:28)
--- NOTE | 2020-11-19 15:31 | Hospitalist Progress Note ---
Date of Service November 19, 2020 Assessment & Plan (1) Acute encephalopathy: improving still with weakness, icu myopathy, alertness and command responses are improving daily Neurology consult 11/16/20: CTH did not show hemorrhagic strokes - may still consider a routine EEG in 3-4 days after holding majority of sedation as below - continue holding all sedation except for seroquel 25mg bid. Avoid opiates and benzos that can worsen mental status/cause confusion in the elderly. Ok to use ketamine or precedex as needed for agitation if Seroquel not working. (2) Acute respiratory failure with hypoxia: Intubated on 10/27 after nearly two weeks of high flow and BIPAP tracheostomy on 11/05. trach change 11/18 Patient now on CPAP via her trach with a pressure support of 12 PEEP of 6 and FiO2 of 50 he is overbreathing the ventilator rate high dose Decadron added for late ARDS with 20mg daily, then down to 10mg daily until 11/12, then stop ultimate plan was for LTACH, did have trache change 11/18 and consider peg (3) Pneumonia due to COVID-19 virus: stopped Decadron 10/29, resumed higher dose Decadron for late ARDS, complete 11/12 completed course of Remdesivir, LD 10/19 convalescent plasma on 10/16 Prognosis some slight improvement looking into LTACH once more stable sputum culture with Klebsiella, treated with Rocephin transiently on meropenen, now change to vanco given some purulent material aroung trach, and also covers sinusitis seen on CT (4) Afib: anticoagulated with heparin gtt rate controlled with metoprolol tartrate eventually change to po succinate when able (5) Hypertension: on metoprolol 25 q12, Hydralazine 50 q8, amlodipine 10mg daily via OG tube (6) Metabolic acidosis: Resolved (7) Sepsis: Source - COVID-19 +/- possible bacterial PNA completed course of Levaquin currently is on ceftriaxone sputum culture then with Klebsiella, sinusitis on vancomycin (8) Prediabetes: HbA1C 5.9 in May. Glucose 129 on admission (9) Hyperlipidemia: Continue her usual rosuvastatin dosing via NG tube (10) GERD (gastroesophageal reflux disease): Continue her usual pantoprazole 40mg PO daily (11) Esophageal dysmotility: Aspiration precautions. (12) Hypothyroidism: TSH 1.31 in Aug. Continue levothyroxine 75 mcg PO daily (13) Anxiety: now on sedation scheduled clonazepam (14) DVT prophylaxis: on heparin gtt for afib Admission and Anticipated Discharge Date Admission Date: October 15, 2020 Subjective Patient continues to follow commands but has weakness to her arms and legs, . was found to have mucopurulent drainage around the tracheostomy site. is on mrsa coverage Nursing noted significant bloody bowel movement with bright red blood per rectum. Hemodynamically stable at this time. slow improvement will need to arrange surgical g tube placement Review of Systems Review of Systems: Unobtainable due to cognitive status Physical Exam Physical Exam: The patient appeared chronically ill, she remains on ventilated via trachea, trach change 11/18, some purulence around trach she continues to have improved mental status daily Vital signs as documented. Lungs are coarse to auscultation bilaterally Cardiac exam, Rhythm is regular.. No murmurs, rubs or gallops. Abdominal exam reveals normal bowel sounds, soft non tender, no masses Extremities are mildly edematous she responds to commands Results & Data Results & Data ([facility]) Vital Signs (Past 12 Hours) Vital Signs Temp Pulse Resp BP Pulse Ox 11/19/20 14:00 72 132/65 94 11/19/20 13:00 65 136/57 L 94 11/19/20 12:00 97 H 138/65 94 11/19/20 11:39 78 30 H 95 11/19/20 11:00 81 122/86 93 11/19/20 10:33 78 122/67 93 11/19/20 10:01 94 H 92 11/19/20 09:31 99.3 F 11/19/20 09:00 76 121/60 94 11/19/20 08:02 88 30 H 94 11/19/20 08:00 103 H 145/66 H 97 11/19/20 07:00 73 112/57 L 93 11/19/20 04:00 91 H 125/55 L 94 PG Care Time/CCT Total # of Minutes Spent Total Time Spent with Patient: Total time spent is greater than 50% in coordination of care (as documented) at patient's floor/unit and/or counseling patient: Coding Level of Care Code 61440 Subseq Hosp Care Lvl 2 Diagnoses Acute encephalopathy G93.40 Acute respiratory failure with hypoxia J96.01 Pneumonia due to COVID-19 virus U07.1; J12.89 Afib I48.91 Hypertension I10 Metabolic acidosis E87.2 Sepsis A41.9 Sepsis acute organ dysfunction status: unspecified Sepsis type: sepsis due to unspecified organism Prediabetes R73.03 Hyperlipidemia E78.5 GERD (gastroesophageal reflux disease) K21.9 Esophageal dysmotility K22.4 Hypothyroidism E03.9 Anxiety F41.9 DVT prophylaxis Z29.9 (1) Sepsis Sepsis acute organ dysfunction status: unspecified Sepsis type: sepsis due to unspecified organism Qualified Code(s): A41.9 - Sepsis, unspecified organism
[2020-11-19] MEDS: VANCOMYCIN HCL 1,250 MG in SODIUM CHLORIDE 0.9% 250 ML IV SCH (16:09)
[2020-11-19 20:30] LABS: Hematocrit (blood only) 31.2 % (37-47); Hemoglobin 10.1 g/dL (12.0-16.0); Mean Corpuscular Hemoglobin 32.2 pg (25-34); Mean Corpuscular Hgb Conc 32.4 g/dL (32-36); Mean Corpuscular Volume 99.4 fL (80-100); Nucleated RBC # (auto) 0.06 K/uL (0-0); Nucleated RBC % (auto) 0.5 %; Platelet Count 528 K/uL (130-400); RDW Coefficient of Variation 16.6 % (11.5-14.5); RDW Standard Deviation 59.2 fL (36.4-46.3); Red Blood Count 3.14 M/uL (4.2-5.4); White Blood Count 11.93 K/uL (4.8-10.8)
[2020-11-19 21:27] LABS: Basophils # (auto) 0.04 K/uL (0-0.2); Basophils % (auto) 0.3 %; Eosinophils # (auto) 0.34 K/uL (0-0.5); Eosinophils % (auto) 2.8 %; Immature Granulocytes # (auto) 0.69 K/uL (0.00-0.02); Immature Granulocytes % (auto) 5.8 %; Lymphocytes % (auto) 6.7 %; Monocytes # (auto) 0.89 K/uL (0.11-0.59); Monocytes % (auto) 7.5 %; Neutrophils # (auto) 9.17 K/uL (1.4-6.5); Neutrophils % (auto) 76.9 %
[2020-11-19] MEDS: ASPIRIN 81 MG CHEW PO SCH (21:31)
[2020-11-19] MEDS ORDERED: VANCOMYCIN HCL 1,250 MG in SODIUM CHLORIDE 0.9% 250 ML IV SCH (23:00)
[2020-11-20] MEDS: INSULIN ASPART 100 UNITS/ML 3 ML PEN SC SCH ×4 (00:02→18:25)
[2020-11-20] MEDS: VANCOMYCIN HCL 1,250 MG in SODIUM CHLORIDE 0.9% 250 ML IV SCH ×3 (00:07→20:06)
[2020-11-20] MEDS: PANTOprazole 40 MG in DEXTROSE 5% 100 ML IV SCH ×3 (01:59→10:58)
[2020-11-20] MEDS: hydrALAZINE TAB 50 MG TAB NG SCH ×3 (05:41→22:56)
[2020-11-20] MEDS: LEVOTHYROXINE SODIUM 50 MCG TABLET PO SCH (05:41)
[2020-11-20 07:22] LABS: Basophils # (auto) 0.05 K/uL (0-0.2); Basophils % (auto) 0.4 %; Eosinophils # (auto) 0.41 K/uL (0-0.5); Eosinophils % (auto) 3.2 %; Hematocrit (blood only) 29.5 % (37-47); Hemoglobin 9.3 g/dL (12.0-16.0); Immature Granulocytes # (auto) 0.53 K/uL (0.00-0.02); Immature Granulocytes % (auto) 4.1 %; Lymphocytes # (auto) 0.82 K/uL (1.2-3.4); Lymphocytes % (auto) 6.4 %; Mean Corpuscular Hemoglobin 31.3 pg (25-34); Mean Corpuscular Hgb Conc 31.5 g/dL (32-36); Mean Corpuscular Volume 99.3 fL (80-100); Mean Platelet Volume 9.2 fL (7.4-10.4); Monocytes # (auto) 0.79 K/uL (0.11-0.59); Monocytes % (auto) 6.1 %; Neutrophils # (auto) 10.29 K/uL (1.4-6.5); Neutrophils % (auto) 79.8 %; Platelet Count 470 K/uL (130-400); RDW Coefficient of Variation 16.4 % (11.5-14.5); RDW Standard Deviation 58.4 fL (36.4-46.3); Red Blood Count 2.97 M/uL (4.2-5.4); White Blood Count 12.89 K/uL (4.8-10.8)
[2020-11-20] MEDS ORDERED: VANCOMYCIN TROUGH ONE (07:30)
[2020-11-20 07:54] LABS: BUN Creatinine Ratio 112.5 (10-20); Blood Urea Nitrogen 20 mg/dl (7-18); Calcium 9.2 mg/dl (8.5-10.1); Carbon Dioxide 31 mmol/L (21-32); Chloride 106 mmol/L (98-107); Creatinine Clr Calc Pharmacy 343.1 ml/min; Est GFR (African American) > 150.0; Est GFR (Non-African American) 139.2; Glucose 129 mg/dl (70-99); Magnesium 2.1 mg/dl (1.8-2.4); Potassium 3.6 mmol/L (3.5-5.1); Sodium 141 mmol/L (136-145)
[2020-11-20] MEDS: ARTIFICIAL TEARS OP OINT 3.5 GM TUBE OP SCH ×2 (07:59→20:07)
[2020-11-20] MEDS: METOPROLOL TARTRATE 25 MG TAB PO SCH ×3 (08:00→20:10)
[2020-11-20] MEDS: FAMOTIDINE 20 MG TAB PO SCH (08:01)
[2020-11-20 08:03] LABS: Phosphorus 2.9 mg/dl (2.5-4.9)
[2020-11-20] MEDS: fentaNYL citrate 100 MCG/2 ML VIAL IV PRN ×2 (08:08→11:49)
[2020-11-20] MEDS: PEPTAMEN INTENSE VHP 1.0 CAL 1,000 ML BAG OG SCH (08:36)
[2020-11-20] MEDS: amLODIPine BESYLATE 5 MG TAB PO SCH (09:43)
[2020-11-20] MEDS: MULTI VIT W/MINERALS LIQUID 15 ML UDP PO SCH (09:44)
--- NOTE | 2020-11-20 11:10 | Critical Care Progress Note ---
Date of Service November 20, 2020 Assessment & Plan (1) 2019 novel coronavirus–infected pneumonia (NCIP)#8211;infected pneumonia (NCIP): Impression: 69-year-old female with severe acute hypoxemic respiratory failure intubated due to novel coronavirus with ARDS now status post tracheostomy. PLAN: Neuro: Continues to have delirium. She appears flaccid in all her extremities. We will check a CK. 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 Consider MRI of the brain and EEG in the near future if no improvement. Holding all sedating agents. Resp: Continue pressure support during the day and assist control at night. We will continue to wean ventilator as able. Tracheostomy exchange was completed on 11/18/2020. Continues to have significant mucopurulent secretions. Currently on vancomycin for total of 7 days. Pharmacy is assisting with dosing. She is growing staph aureus from the tracheostomy site. CV: She has paroxysmal atrial fibrillation during this hospital admission. Holding the heparin drip at this time due to hematochezia. Continue rate control with metoprolol. Continue amlodipine and hydralazine for blood pressure. TSH: 0.9 within normal limit 11/10/2020 ID: Continue vancomycin for MRSA in the sputum and tracheostomy site. Tracheostomy exchange occurred on 11/18. GI/Nutrition: GI is consulted for PEG tube placement. Family would like to proceed with PEG tube and LTAC placement. General surgery may need to be involved for an open PEG tube placement due to patient's body habitus. She has evidence of hematochezia. Hemoglobin is stable. Stop Protonix drip and started 40 mg twice daily of Protonix. GI is on board. Heme: Monitor H&H. She has evidence of thrombocytosis likely reactive from Covid. Holding heparin drip as noted above. Likely restart heparin drip tomorrow if hemoglobin remains stable. Endocrine: Glycemic control per protocol. Continue Synthroid Code Status: DNR. Disposition: ICU at this time and she will likely need LTAC placement in the near future. Overall prognosis guarded. --Prophylaxis VTE: Heparin drip on hold GI: Protonix twice daily Diet: Restart tube feeds today. Discussed with bedside RN. I have personally spent 41 minutes of critical care time in the direct management of this patient. This is a life/limb threatening event. This includes time spent evaluating patient, direct bedside care, chart review, placing orders, interpretation of diagnostic studies, discussion with consultants, patient, and family members, as well as other required patient management activities. This time is exclusive of all separately billable procedures, and teaching time and separate from and in addition to any other critical care service time. (2) Paroxysmal A-fib: (3) Acute encephalopathy: (4) Tracheitis: (5) MRSA (methicillin resistant staph aureus) culture positive: Admission and Anticipated Discharge Date Admission Date: October 15, 2020 Subjective She is a bit more tachypneic today with respiratory rate in the mid 30s. She is intermittently following minimal commands. She does withdraw from pain. She is essentially flaccid in her upper extremities. She does move her feet per nursing. No further evidence of lower GI bleeding today. Review of Systems Review of Systems: Unobtainable due to reduced consciousness Physical Exam Constitutional: WD/WN, vitals as above Eyes: PERRL, conjunctivae normal, anicteric sclerae ENMT: external ear and nose normal, oropharynx normal Neck: Tracheostomy in place with significant mucopurulent drainage. Respiratory: normal respiratory effort, lungs clear to auscultation Cardiovascular: RRR, no murmur, no edema Gastrointestinal (Abdomen): normal bowel sounds, soft, nontender, no hepatosplenomegaly Musculoskeletal: Her arms and legs are essentially flaccid. She does grimace to pain when I try range of motion exercises on her arms and legs. Skin: no rashes, warm and dry Neurologic: Patient is opening her eyes spontaneously and tracking at times. Her extremities appear flaccid. Psychiatric: A+Ox3, euthymic affect Unable to assess. Results & Data Results & Data ([facility]) Vital Signs (Past 12 Hours) Vital Signs Temp Pulse Resp BP Pulse Ox 11/20/20 08:00 98.6 F 83 115/56 L 90 11/20/20 07:42 85 38 H 91 11/20/20 07:00 95 H 135/62 92 11/20/20 06:01 78 26 H 95 11/20/20 06:00 77 28 H 131/59 L 96 11/20/20 05:01 87 92 11/20/20 05:00 89 30 H 122/52 L 92 11/20/20 04:01 99.5 F 95 H 94 11/20/20 04:00 92 H 131/65 94 11/20/20 03:01 88 95 11/20/20 03:00 89 28 H 126/61 94 11/20/20 02:38 88 33 H 96 11/20/20 02:01 99.1 F 87 96 11/20/20 02:00 85 28 H 117/63 96 11/20/20 01:01 85 95 11/20/20 01:00 99.3 F 88 26 H 127/63 95 11/20/20 00:01 88 95 11/20/20 00:00 85 28 H 127/65 96 11/19/20 23:40 81 35 H 94 Coding Level of Care Code Critical Care 1st 30-74 mins Diagnoses 2019 novel coronavirus–infected pneumonia ([facility])#8211;infected pneumonia ([facility]) U07.1; J12.89 Paroxysmal A-fib I48.0 Acute encephalopathy G93.40 Tracheitis J04.10 MRSA (methicillin resistant staph aureus) culture positive Z22.322 Time Spent (min) 41
--- NOTE | 2020-11-20 13:52 | Pharmacy Report ---
Pharmacy Abx Dose Short Note - Date of Service November 20, 2020 - Assessment & Plan Assessment 69 year old F receiving VANCOMYCIN for treatment of tracheitis/SSTI. Day # 3 of antimicrobial therapy. Plan Vancomycin * Patient has been receiving VANCOMYCIN 1250mg IV q8h. * Trough level of 25.5mcg/mL is supratherapeutic, although the level was drawn ~1.5 hours early, so would have likely been a bit lower if drawn appropriately. * Will change to VANCOMYCIN 1250mg IV every 12 hours. * Goal trough level for MRSA (Vanc NEHAL=2) : 15 to 20 mcg/mL * Will recheck a trough level prior to tomorrow's 2000 dose. SCr is not reflective of true renal function, so will continue with close monitoring. Pharmacy will continue to follow and will adjust dose/frequency as necessary. Thank you.
--- NOTE | 2020-11-20 14:05 | Gastroenterology Progress Note ---
Date of Service November 20, 2020 Assessment & Plan Admission and Anticipated Discharge Date Admission Date: October 15, 2020 Subjective Patient was initially admitted more than a month ago with COVID pneumonia, slowly recovering, now has encephalopathy and post ICU myopathy. She is s/p Trach. GI consulted for rectal bleeding, drop in H/H and rising BUN. Recommend: IV PPI. EGD tomorrow, I spoke to the NOK and she agreed. Plz stop Heparin drip at midnight. Results & Data ([facility]) Vital Signs (Past 12 Hours) Vital Signs Temp Pulse Resp BP Pulse Ox 11/20/20 11:33 34 H 90 11/20/20 08:00 37 C 83 115/56 L 90 11/20/20 07:42 85 38 H 91 11/20/20 07:00 95 H 135/62 92 11/20/20 06:01 78 26 H 95 11/20/20 06:00 77 28 H 131/59 L 96 11/20/20 05:01 87 92 11/20/20 05:00 89 30 H 122/52 L 92 11/20/20 04:01 37.5 C 95 H 94 11/20/20 04:00 92 H 131/65 94 11/20/20 03:01 88 95 11/20/20 03:00 89 28 H 126/61 94 11/20/20 02:38 88 33 H 96
--- NOTE | 2020-11-20 14:59 | Hospitalist Progress Note ---
Date of Service November 20, 2020 Assessment & Plan (1) Acute encephalopathy: improving still with weakness, critical care myopathy, alertness and command responses are improving daily Neurology consult 11/16/20: CTH did not show hemorrhagic strokes - continue holding all sedation except for seroquel 25mg bid. Avoid opiates and benzos that can worsen mental status/cause confusion in the elderly. Ok to use ketamine or precedex as needed for agitation if Seroquel not working. (2) Acute respiratory failure with hypoxia: Intubated on 10/27 after nearly two weeks of high flow and BIPAP tracheostomy on 11/05. trach change 11/18 Patient now on CPAP via her trach with a pressure support of 12 PEEP of 6 and FiO2 of 45 he is overbreathing the ventilator rate high dose Decadron added for late ARDS with 20mg daily, then down to 10mg daily until 11/12, then stopped ultimate plan was for LTACH, did have trache change 11/18 and consider peg 11/21/20 (3) Pneumonia due to COVID-19 virus: stopped Decadron 10/29, resumed higher dose Decadron for late ARDS, complete 11/12 completed course of Remdesivir, LD 10/19 convalescent plasma on 10/16 Prognosis some slight improvement looking into LTACH once more stable sputum culture with Klebsiella, treated with Rocephin transiently on meropenen, now change to vanco given some purulent material aroung trach, concern for mrsa colonization, and also covers sinusitis seen on CT (4) Afib: anticoagulated with heparin gtt rate controlled with metoprolol tartrate , heparin on hold for peg [place] 1/2-3 (5) Hypertension: on metoprolol 25 tid, Hydralazine 50 q8, amlodipine 10mg daily via OG tube (6) Metabolic acidosis: Resolved (7) Sepsis: Source - COVID-19 +/- possible bacterial PNA completed course of Levaquin currently is on ceftriaxone sputum culture then with Klebsiella, sinusitis on vancomycin (8) Prediabetes: HbA1C 5.9 in May. Glucose 129 on admission (9) Hyperlipidemia: Continue her usual rosuvastatin dosing via NG tube (10) GERD (gastroesophageal reflux disease): Continue her usual pantoprazole 40mg iv daily (11) Esophageal dysmotility: Aspiration precautions. (12) Hypothyroidism: TSH 1.31 in Aug. Continue levothyroxine 75 mcg PO daily (13) Anxiety: (14) DVT prophylaxis: on heparin gtt for afib, on hold Admission and Anticipated Discharge Date Admission Date: October 15, 2020 Subjective Patient was initially admitted 10/15/20 with COVID pneumonia, eventually required intubation and trache, slowly recovering, now has encephalopathy and post ICU myopathy. She is s/p Trach change on 11/18 . GI consulted will place PEG for feeding 11/21/20 Review of Systems Review of Systems: Unobtainable due to cognitive status Physical Exam Physical Exam: The patient appeared chronically ill, she remains on ventilated via trachea, trach change 11/18, some purulence around trach she continues to have improved mental status daily Vital signs as documented. Lungs are coarse to auscultation bilaterally Cardiac exam, Rhythm is regular.. No murmurs, rubs or gallops. Abdominal exam reveals normal bowel sounds, soft non tender, no masses Extremities are mildly edematous she responds to commands looks around the room Results & Data Results & Data ([facility]) Vital Signs (Past 12 Hours) Vital Signs Temp Pulse Resp BP Pulse Ox 11/20/20 11:33 34 H 90 11/20/20 08:00 98.6 F 83 115/56 L 90 11/20/20 07:42 85 38 H 91 11/20/20 07:00 95 H 135/62 92 11/20/20 06:01 78 26 H 95 11/20/20 06:00 77 28 H 131/59 L 96 11/20/20 05:01 87 92 11/20/20 05:00 89 30 H 122/52 L 92 11/20/20 04:01 99.5 F 95 H 94 11/20/20 04:00 92 H 131/65 94 11/20/20 03:01 88 95 11/20/20 03:00 89 28 H 126/61 94 PG Care Time/CCT Total # of Minutes Spent Total Time Spent with Patient: Total time spent is greater than 50% in coordination of care (as documented) at patient's floor/unit and/or counseling patient: Coding Level of Care Code 01277 Subseq Hosp Care Lvl 2 Diagnoses Acute encephalopathy G93.40 Acute respiratory failure with hypoxia J96.01 Pneumonia due to COVID-19 virus U07.1; J12.89 Afib I48.91 Hypertension I10 Metabolic acidosis E87.2 Sepsis A41.9 Sepsis acute organ dysfunction status: unspecified Sepsis type: sepsis due to unspecified organism Prediabetes R73.03 Hyperlipidemia E78.5 GERD (gastroesophageal reflux disease) K21.9 Esophageal dysmotility K22.4 Hypothyroidism E03.9 Anxiety F41.9 DVT prophylaxis Z29.9 (1) Sepsis Sepsis acute organ dysfunction status: unspecified Sepsis type: sepsis due to unspecified organism Qualified Code(s): A41.9 - Sepsis, unspecified organism
[2020-11-20] MEDS: metroNIDAZOLE 500 MG/100 ML BAG IV SCH (20:06)
[2020-11-20] MEDS: ASPIRIN 81 MG CHEW PO SCH (20:10)
[2020-11-20] MEDS: PANTOprazole 40 MG in SYRINGE 0 ML IV SCH (20:11)
[2020-11-21] MEDS: fentaNYL citrate 100 MCG/2 ML VIAL IV PRN ×2 (00:11→20:48)
[2020-11-21] MEDS: INSULIN ASPART 100 UNITS/ML 3 ML PEN SC SCH ×4 (00:17→18:20)
[2020-11-21] MEDS: metroNIDAZOLE 500 MG/100 ML BAG IV SCH ×3 (03:14→20:50)
[2020-11-21] MEDS: hydrALAZINE TAB 50 MG TAB NG SCH ×3 (05:25→20:54)
[2020-11-21] MEDS: LEVOTHYROXINE SODIUM 50 MCG TABLET PO SCH (05:25)
[2020-11-21 07:10] LABS: Basophils # (auto) 0.07 K/uL (0-0.2); Basophils % (auto) 0.5 %; Eosinophils # (auto) 0.26 K/uL (0-0.5); Eosinophils % (auto) 1.8 %; Hematocrit (blood only) 30.1 % (37-47); Hemoglobin 9.4 g/dL (12.0-16.0); Immature Granulocytes # (auto) 0.66 K/uL (0.00-0.02); Immature Granulocytes % (auto) 4.7 %; Lymphocytes # (auto) 0.94 K/uL (1.2-3.4); Lymphocytes % (auto) 6.6 %; Mean Corpuscular Hgb Conc 31.2 g/dL (32-36); Mean Corpuscular Volume 99.3 fL (80-100); Mean Platelet Volume 9.4 fL (7.4-10.4); Monocytes % (auto) 5.6 %; Neutrophils # (auto) 11.45 K/uL (1.4-6.5); Neutrophils % (auto) 80.8 %; Nucleated RBC # (auto) 0.07 K/uL (0-0); Nucleated RBC % (auto) 0.5 %; Platelet Count 458 K/uL (130-400); RDW Coefficient of Variation 16.8 % (11.5-14.5); Red Blood Count 3.03 M/uL (4.2-5.4); White Blood Count 14.18 K/uL (4.8-10.8)
[2020-11-21 07:16] LABS: Partial Thromboplastin Time 27.9 Seconds (21.0-31.0)
[2020-11-21 07:34] LABS: BUN Creatinine Ratio 82.1 (10-20); Calcium 9.4 mg/dl (8.5-10.1); Creatinine Clr Calc Pharmacy 231.1 ml/min; Est GFR (African American) 141.2; Est GFR (Non-African American) 121.8; Magnesium 2.1 mg/dl (1.8-2.4); Phosphorus 3.1 mg/dl (2.5-4.9); Potassium 3.6 mmol/L (3.5-5.1)
[2020-11-21] MEDS: VANCOMYCIN HCL 1,250 MG in SODIUM CHLORIDE 0.9% 250 ML IV SCH ×2 (07:48→20:51)
[2020-11-21] MEDS: PANTOprazole 40 MG in SYRINGE 0 ML IV SCH ×2 (07:49→20:52)
[2020-11-21] MEDS: ARTIFICIAL TEARS OP OINT 3.5 GM TUBE OP SCH ×2 (07:49→20:51)
[2020-11-21] MEDS: METOPROLOL TARTRATE 25 MG TAB PO SCH ×3 (08:40→20:53)
[2020-11-21] MEDS ORDERED: ceFAZolin 2000MG 2,000 MG/15 ML SYR IV STA (08:44)
--- NOTE | 2020-11-21 08:47 | Anesthesiology Consultation ---
Date of Service November 21, 2020 Assessment & Plan (1) Encounter for pre-operative examination: Chart Review Chart Review: Acceptable Risk for Surgery Consults Requested none ASA ASA4 Proposed Anesthesia Anesthesia Type: MAC Risk / Benefits Reviewed With: PT / POA / Parent / Guardian, Accepts Plan and Informed Consent Obtained History Surgery Operation Date: 11/21/20 12:00 Proposed Procedures p Esophagogastroduodenoscopy - Demetris Drake MD Height/Weight Height: 5 ft 4 in Weight: 101.5 kg Allergies Allergy/AdvReac Type Severity Reaction Status Date / Time Penicillins Allergy Severe RESP Verified 11/15/20 21:01 DISTRESS/HIVES Medications Home Medications Medication Instructions Recorded Confirmed Last Taken Glucosamine Chondroitin 1 cap PO BID 04/03/19 10/15/20 04/07/19 22:00 aspirin [Aspirin Low Dose] 81 mg PO HS 04/03/19 10/15/20 04/07/19 22:00 biotin 5,000 mcg SUBLINGUAL 1200 04/03/19 10/15/20 04/07/19 09:00 calcium carbonate-vitamin D3 1 tab PO BID 04/03/19 10/15/20 04/07/19 22:00 [Calcium 600 + D(3)] cholecalciferol (vitamin D3) 2,000 unit PO 1200 04/03/19 10/15/20 04/07/19 12:00 [Vitamin D3] multivitamin 1 tab PO 1200 04/03/19 10/15/20 04/07/19 12:00 clonazepam 0.5 mg tablet 0.5 mg PO BID PRN #60 tab 09/17/19 10/15/20 Unknown ciclopirox 8 % topical solution 1 appln TOP DAILY #6.6 ml 05/26/20 10/15/20 Unknown fluticasone propionate 50 1 spray INTRANASAL HS #16 gm 06/15/20 10/15/20 Unknown mcg/actuation nasal spray,suspension levothyroxine 75 mcg tablet 75 mcg PO DAILY #90 tab 07/05/20 10/15/20 Unknown rosuvastatin 5 mg tablet 5 mg PO .COMPLEX #36 tab 07/08/20 10/15/20 Unknown meloxicam 15 mg tablet 15 mg PO DAILY PRN #30 tab 07/28/20 10/15/20 Unknown ondansetron HCl 4 mg tablet 4 mg PO Q8H PRN #30 tab 10/11/20 10/15/20 Unknown pantoprazole 40 mg PO DAILYBB 10/15/20 10/15/20 Unknown Active Medications Generic Name Dose Route Start Last Admin Trade Name Bimalq PRN Reason Stop Dose Admin Amlodipine Besylate 10 mg 11/08/20 14:45 11/20/20 09:43 Amlodipine Besylate 5 Mg Tab PO 12/08/20 14:44 10 mg QAM HARISH Administration Aspirin 81 mg 10/28/20 21:00 11/20/20 20:10 Aspirin 81 Mg Chew PO 11/27/20 20:59 Not Given HS HARISH Fentanyl Citrate 25 mcg 11/15/20 16:42 11/21/20 00:11 Fentanyl Citrate 100 Mcg/2 Ml Vial IV 11/25/20 12:19 25 mcg Q2H PRN Administration Pain Hydralazine HCl 10 mg 11/08/20 10:35 11/08/20 12:56 Hydralazine Hcl 20 Mg/Ml Vial IV 12/08/20 10:34 10 mg Q6H PRN Administration SBP > 160 Hydralazine HCl 50 mg 11/11/20 14:00 11/21/20 05:25 Hydralazine Tab 50 Mg Tab NG 12/11/20 13:59 50 mg Q8 HARISH Administration Heparin Sodium/Dextrose 25,000 units in 500 mls @ 29 mls/hr 11/18/20 11:15 11/19/20 18:59 Heparin Sodium/Dextrose IV 12/18/20 11:14 Infused .[id number] HARISH Titration Protocol 1,450 UNITS/HR Pantoprazole Sodium 40 mg/ 10 mls @ 5 mls/min 11/20/20 21:00 11/21/20 07:49 Syringe IV 12/20/20 20:59 5 mls/min BID HARISH Administration Vancomycin HCl 1,250 mg/ 275 mls @ 200 mls/hr 11/20/20 20:00 11/21/20 07:48 Sodium Chloride IV 11/26/20 15:59 200 mls/hr Q12H HARISH Administration Metronidazole 500 mg in 100 mls @ 100 mls/hr 11/20/20 20:00 11/21/20 04:39 Flagyl IV 11/27/20 19:59 Infused Q8H HARISH Infusion Insulin Aspart 0 units 11/17/20 12:00 11/21/20 05:23 Insulin Aspart 100 Units/Ml 3 Ml Pen SC 12/17/20 11:59 Not Given Q6 [facility] Protocol Levothyroxine Sodium 50 mcg 11/16/20 06:30 11/21/20 05:25 Levothyroxine Sodium 50 Mcg Tablet PO 12/16/20 06:29 50 mcg DAILYBB HARISH Administration Metoprolol Tartrate 25 mg 11/16/20 21:00 11/21/20 08:40 Metoprolol Tartrate 25 Mg Tab PO 12/16/20 20:59 25 mg TID HARISH Administration Multi-Ingredient Cream 1 appln 11/17/20 21:00 11/21/20 07:49 Artificial Tears Op Oint 3.5 Gm Tube OP 12/17/20 20:59 1 appln BID HARISH Administration Multivitamins/Minerals 15 ml 10/29/20 12:00 11/20/20 09:44 Multi Vit W/Minerals Liquid 15 Ml Udp PO 11/28/20 11:59 15 ml DAILY@1200 [facility] Administration Nutritional Formula 1,000 ml 11/03/20 16:00 11/20/20 08:36 Peptamen Intense Vhp 1.0 Juan Daniel 1,000 Ml Bag OG 12/03/20 15:59 1,000 ml DAILY@1600 [facility] Administration Protocol Rosuvastatin Calcium 5 mg 11/19/20 09:00 11/19/20 08:15 Rosuvastatin Calcium 5 Mg Tab PO 12/19/20 08:59 5 mg [id number] HARISH Administration NPO Date Last Intake of Fluids: 11/21/20 Time Last Intake of Fluids: 00:00 Date Last Intake of Solids: 11/21/20 Time Last Intake of Solids: 00:00 Past Medical History Medical History Acute encephalopathy COVID-19 Fever GERD (gastroesophageal reflux disease) History of anesthesia reaction difficulty waking Hyperlipidemia Hypotension Hypothyroidism Migraine MRSA (methicillin resistant staph aureus) culture positive Obesity (BMI 30-39.9) Osteoarthritis Palliative care encounter Schatzki's ring of distal esophagus Tracheitis Exercise / Class Metabolic Activity IV < 2 Limit ADL/Bedbound Past Family History Family History Sister Family history of diabetes mellitus Bleeding disorder Grandfather (Paternal) Family hx of colon cancer Father Cardiac disorder Cancer Sister Hypertension Clotting disorder Sinusitis Mother Hypertension Stroke Cancer Sinusitis Other No family history of adverse response to anesthesia Past Surgical History Surgical History History of cholecystectomy History of colonoscopy 2004 - [place] - Divertics sigmoid History of dilatation and curettage History of oral surgery permanent bridge placed History of total hysterectomy with bilateral salpingo-oophorectomy (BSO) (2013) History of vaginal surgery bartholin cyst removal History of wisdom tooth extraction Hx of laparoscopy diagnostic Past Anesthesia History No Hx of Anesthesia Complications and No Family Hx of Anesthesia Complications History of PONV No Hx of PONV and No Hx of Motion Sickness Social History Smoking Status: Never smoker Hx Alcohol Use: Yes Alcohol type: beer, wine and hard liquor alcohol intake frequency: a few times a week Hx Substance Use: No substance use type: does not use Physical Exam Vital Signs Last Vital Signs Temp 98.4 F 11/21/20 07:48 Pulse 77 11/21/20 08:01 Resp 37 H 11/21/20 08:01 BP 134/66 11/21/20 06:00 Pulse Ox 94 11/21/20 08:01 ENMT Thyromental Distance: > or= 3.5 Finger Breadths Mallampati Class: Other (pt with trach) Neck normal visual inspection Respiratory normal respiratory effort and + tachypneic Cardiovascular Rate/Rhythm: regular rate and regular rhythm Testing Laboratory Results 11/21/20 05:58 11/21/20 05:58 PT 11.7 Seconds (9.0-12.0) 10/31/20 01:09 INR 1.1 (0.9-1.1) 10/31/20 01:09 APTT 27.9 Seconds (21.0-31.0) 11/21/20 05:58 Hemoglobin A1c 6.5 % (4.5-5.6) H 10/16/20 06:31 Urine Color Yellow 10/15/20 15:30 Urine Appearance Clear (Clear) 10/15/20 15:30 Urine pH 6.0 (4.5-7.5) 10/15/20 15:30 Ur Specific [place] > 1.045 (1.000-1.030) H 10/15/20 15:30 Urine Protein 1+ (Negative) H 10/15/20 15:30 Urine Glucose (UA) Negative (Negative) 10/15/20 15:30 Urine Ketones 1+ (Negative) H 10/15/20 15:30 Urine Nitrite Negative (Negative) 10/15/20 15:30 Ur Leukocyte Esterase 2+ (Negative) H 10/15/20 15:30 Urine WBC (Auto) >30 /hpf (0-5) H 10/15/20 15:30 Urine RBC (Auto) 0-4 /hpf (0-4) 10/15/20 15:30 U Hyaline Cast (Auto) 5-10 /lpf (0-5) H 10/15/20 15:30 U Epithel Cells (Auto) >30 /lpf (0-5) H 10/15/20 15:30 Urine Bacteria (Auto) 1+ (Negative) H 10/15/20 15:30 Blood Type O Positive 10/27/20 13:38 Antibody Screen NEGATIVE 10/27/20 13:38 11/16/20 15:30 Gram Stain - Final Neck Deep Wound Culture - Final Staph aureus MRSA Prevotella intermedia 11/03/20 23:30 Gram Stain - Final Sputum,Vent Suction Sputum Culture - Final Klebsiella (Entero) aerogenes 11/01/20 20:04 Gram Stain - Final Sputum,Vent Suction Sputum Culture - Final Light normal linette. 10/15/20 11:58 Aerobic Blood Culture - Final Blood No growth in Aerobic bottle after 5 days. Anaerobic Blood Culture - Final No growth in Anaerobic bottle after 5 days. 10/15/20 11:41 Aerobic Blood Culture - Final Blood No growth in Aerobic bottle after 5 days. Anaerobic Blood Culture - Final No growth in Anaerobic bottle after 5 days. 10/15/20 15:30 Urine Culture - Final Urine,Clean Catch Group C Beta Strep 11/21/20 11/20/20 05:22 23:58 POC Glucose 115 H 137 H Electrocardiogram Date: 11/16/20 Poor data quality, interpretation may be adversely affected Atrial fibrillation with rapid ventricular response, rate [address] abnormality, possible inferolateral subendocardial injury Abnormal ECG When compared with ECG of 15-NOV-2020 11:41, (unconfirmed) Atrial fibrillation has replaced Sinus rhythm Vent. rate has increased BY [address] now depressed in Lateral leads Inverted T waves have replaced nonspecific T wave abnormality in Inferior leads Confirmed by Krzysztof, Christopher ([id number]) on 11/17/2020 2:54:43 PM Chest X-Ray Date: 11/12/20 FINDINGS: A tracheostomy tube is again visualized. There is a feeding tube within the stomach. There is a left subclavian central venous catheter unchanged in position. There are extensive bilateral pulmonary airspace opacities relatively similar to the preceding study.[ IMPRESSION: Persistent extensive bilateral pulmonary airspace opacities, similar to the preceding study.
[2020-11-21] MEDS ORDERED: MIDAZOLAM HCL 1 MG/ML 2ML VIAL ONE (08:56)
[2020-11-21] MEDS ORDERED: KETAMINE 50 MG/5 ML SYRINGE ONE (08:57)
[2020-11-21] MEDS ORDERED: OLANZapine 10 MG/2.1 ML SDV IM STA (09:04)
[2020-11-21] MEDS: amLODIPine BESYLATE 5 MG TAB PO SCH (10:18)
--- NOTE | 2020-11-21 10:49 | Anesthesiology Progress Note ---
Date of Service November 21, 2020 Anesthesia Post Procedure Vital Signs Vital Signs: Temp Pulse Resp BP Pulse Ox 11/21/20 10:31 78 28 H 129/66 97 11/21/20 10:16 72 35 H 119/65 97 11/21/20 10:02 70 100/46 L 97 11/21/20 09:36 82 130/65 92 11/21/20 08:01 77 37 H 94 11/21/20 07:48 98.4 F 11/21/20 06:01 87 94 11/21/20 06:00 86 134/66 94 11/21/20 05:00 63 135/70 95 11/21/20 04:34 98.8 F 11/21/20 04:23 88 134/73 93 11/21/20 04:00 96 H 134/73 93 11/21/20 03:28 90 132/66 92 11/21/20 03:00 70 132/66 94 11/21/20 02:15 93 H 38 H 93 11/21/20 02:01 79 93 11/21/20 02:00 79 145/66 H 93 11/21/20 01:00 61 116/59 L 94 11/21/20 00:22 83 27 H 94 11/21/20 00:21 99.3 F 11/21/20 00:00 99.3 F 102 H 151/70 H 92 11/20/20 23:03 99.9 F H 11/20/20 23:00 90 136/68 93 11/20/20 22:01 77 92 11/20/20 22:00 79 22 149/67 H 92 11/20/20 21:01 67 22 94 11/20/20 21:00 71 123/59 L 94 11/20/20 20:35 78 37 H 96 11/20/20 20:00 78 22 124/61 94 11/20/20 19:01 94 H 91 11/20/20 19:00 95 H 139/77 92 11/20/20 18:24 98.6 F 11/20/20 18:00 84 91 11/20/20 17:00 75 94 11/20/20 16:01 70 93 11/20/20 16:00 77 148/62 H 95 11/20/20 15:59 61 41 H 91 11/20/20 15:01 76 91 11/20/20 15:00 74 121/62 91 11/20/20 14:00 80 117/56 L 87 L 11/20/20 13:00 106 H 161/70 H 90 11/20/20 12:00 72 98/50 L 90 11/20/20 11:33 34 H 90 11/20/20 11:00 103 H 173/59 H 88 L Pain Intensity Generalized: Pain Intensity: 0 Transfer of Care Handoff Completed per policy Notes Mental Status: alert / awake / arousable and participated in evaluation Patient Amnestic to Procedure: Yes Nausea / Vomiting: adequately controlled Pain: adequately controlled Airway Patency, RR, SpO2: stable & adequate BP & HR: stable & adequate Hydration State: stable & adequate Anesthetic Complications: no major complications apparent and Pt Satisfied with anesthetic care
--- NOTE | 2020-11-21 10:52 | Critical Care Progress Note ---
Date of Service November 21, 2020 Assessment & Plan (1) 2019 novel coronavirus–infected pneumonia (NCIP)#8211;infected pneumonia (NCIP): Impression: 69-year-old female with severe acute hypoxemic respiratory failure intubated due to novel coronavirus with ARDS now status post tracheostomy and PEG tube placement. PLAN: Neuro: Continues to have delirium. She appears flaccid in all her extremities. We will check a CK. 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 Consider MRI of the brain and EEG in the near future if no improvement. Holding all sedating agents. Resp: Continue pressure support during the day and assist control at night. We will continue to wean ventilator as able. Tracheostomy exchange was completed on 11/18/2020. Continues to have significant mucopurulent secretions. Currently on vancomycin for total of 7 days. Pharmacy is assisting with dosing. She is growing staph aureus from the tracheostomy site. Tracheostomy cultures growing Prevotella intermedia as well. Flagyl started yesterday. CV: She has paroxysmal atrial fibrillation during this hospital admission. Heparin drip on hold due to PEG tube placement. Continue rate control with metoprolol. IV metoprolol started for today given her PEG tube placement. Can switch back to p.o. tomorrow. Continue amlodipine and hydralazine for blood pressure. TSH: 0.9 within normal limit 11/10/2020 ID: Continue vancomycin and Flagyl for MRSA and Prevotella intermedia growing from the secretions around the tracheostomy site. Tracheostomy exchange occurred on 11/18. GI/Nutrition: G PEG tube has been placed. Appreciate their assistance. Restart tube feeds tomorrow. No further hematochezia was seen. Hemoglobin is stable. Continue Protonix 40 mg twice daily. Heme: Monitor H&H. She has evidence of thrombocytosis likely reactive from Covid. H olding heparin drip as noted above. Likely restart heparin drip tomorrow if hemoglobin remains stable. Endocrine: Glycemic control per protocol. Continue Synthroid Code Status: DNR. Disposition: ICU at this time and she will likely need LTAC placement in the near future. Overall prognosis guarded. --Prophylaxis VTE: Heparin drip on hold GI: Protonix twice daily Diet: Restart tube feeds tomorrow Discussed with bedside RN. (2) Paroxysmal A-fib: (3) Acute encephalopathy: (4) Tracheitis: (5) MRSA (methicillin resistant staph aureus) culture positive: Admission and Anticipated Discharge Date Admission Date: October 15, 2020 Subjective Patient undergoing PEG tube placement today. Discussed with bedside RN. No significant issues overnight. Mucopurulent drainage from the trach site appears to be improving. Previously dressings had to be changed every 2 hours and now it is only occurring approximately twice a shift. No significant fevers have been seen. Review of Systems Review of Systems: Unobtainable due to reduced consciousness Physical Exam Constitutional: WD/WN, vitals as above Eyes: PERRL, conjunctivae normal, anicteric sclerae ENMT: external ear and nose normal, oropharynx normal Neck: Tracheostomy in place with significant mucopurulent drainage. Respiratory: normal respiratory effort, lungs clear to auscultation Cardiovascular: RRR, no murmur, no edema Gastrointestinal (Abdomen): normal bowel sounds, soft, nontender, no hepatosplenomegaly Musculoskeletal: Her arms and legs are essentially flaccid. She does grimace to pain when I try range of motion exercises on her arms and legs. Skin: no rashes, warm and dry Neurologic: Patient is opening her eyes spontaneously and tracking at times. Her extremities appear flaccid. Psychiatric: A+Ox3, euthymic affect Unable to assess. Results & Data Results & Data ([facility]) Vital Signs (Past 12 Hours) Vital Signs Temp Pulse Resp BP Pulse Ox 11/21/20 10:31 78 28 H 129/66 97 11/21/20 10:16 72 35 H 119/65 97 11/21/20 10:02 70 100/46 L 97 11/21/20 09:36 82 130/65 92 11/21/20 08:01 77 37 H 94 11/21/20 07:48 98.4 F 11/21/20 06:01 87 94 11/21/20 06:00 86 134/66 94 11/21/20 05:00 63 135/70 95 11/21/20 04:34 98.8 F 11/21/20 04:23 88 134/73 93 11/21/20 04:00 96 H 134/73 93 11/21/20 03:28 90 132/66 92 11/21/20 03:00 70 132/66 94 11/21/20 02:15 93 H 38 H 93 11/21/20 02:01 79 93 11/21/20 02:00 79 145/66 H 93 11/21/20 01:00 61 116/59 L 94 11/21/20 00:22 83 27 H 94 11/21/20 00:21 99.3 F 11/21/20 00:00 99.3 F 102 H 151/70 H 92 11/20/20 23:03 99.9 F H 11/20/20 23:00 90 136/68 93 I reviewed the vital signs, labs and imaging Coding Level of Care Code [address] [facility] 3 Diagnoses 2019 novel coronavirus–infected pneumonia (NCIP)#8211;infected pneumonia (NCIP) U07.1; J12.89 Paroxysmal A-fib I48.0 Acute encephalopathy G93.40 Tracheitis J04.10 MRSA (methicillin resistant staph aureus) culture positive Z22.322
[2020-11-21] MEDS ORDERED: PHENYLEPHRINE 100MCG/ML 5ML SYR ONE (11:11)
[2020-11-21] MEDS ORDERED: PROPOFOL IV EMULSION 10 MG/ML 20 ML VIAL IV ONE (11:11)
--- NOTE | 2020-11-21 11:18 | GI REPORT ---
Patient Name: Diane Garcia Procedure Date: 11/21/2020 9:25 AM Date of : 1950 Admit Type: Inpatient Age: 69 Gender: Female Attending MD: Demetris Drake MD Procedure: Upper GI endoscopy Providers: Demetris Drake MD Referring MD: Dov Purcell Indications: Hematochezia, Place PEG because patient is unable to eat, requires ventilator support, improve nutrition in patient with prolonged severe illness Medicines: Propofol per Anesthesia, Ancef 2000 mg IV Complications: No immediate complications. Estimated Blood Loss: Estimated blood loss: none. Procedure: Pre-Anesthesia Assessment: - Prior to the procedure, a History and Physical was performed, and patient medications, allergies and sensitivities were reviewed. The patient's tolerance of previous anesthesia was reviewed. - The alternatives, risks and benefits of the procedure were discussed at length with the patient's relative. The patient's proxy verbalized understanding of the risks as well as the alternatives and wished to proceed with the procedure. - Patient identification and proposed procedure were verified prior to the procedure by the physician and the nurse. The procedure was verified in the procedure room. - Pre-procedure physical examination revealed no contraindications to sedation. - Airway Examination: status post tracheostomy. After obtaining informed consent, the endoscope was passed under direct vision. Throughout the procedure, the patient's blood pressure, pulse, and oxygen saturations were monitored continuously. The Endoscope was introduced through the mouth, and advanced to the second part of duodenum. The upper GI endoscopy was accomplished without difficulty. The patient tolerated the procedure well. Findings: The examined esophagus was normal. The entire examined stomach was normal. The patient was placed in the supine position for PEG placement. The stomach was insufflated to appose gastric and abdominal shelby. A site was located in the body of the stomach with excellent transillumination and manual external pressure for placement. The abdominal wall was marked and prepped in a sterile manner. The area was anesthetized with 1 mL of 1% lidocaine. The trocar needle was introduced through the abdominal wall and into the stomach under fluoroscopic view. A snare was introduced through the endoscope and opened in the gastric lumen. The guide wire was passed through the trocar and into the open snare. The snare was closed around the guide wire. The endoscope and snare were removed, pulling the wire out through the mouth. A skin incision was made at the site of needle insertion. The externally removable 20 Fr Tano-Cook gastrostomy tube was lubricated. The G-tube was tied to the guide wire and pulled through the mouth and into the stomach. The trocar needle was removed, and the gastrostomy tube was pulled out from the stomach through the skin. The external bumper was attached to the gastrostomy tube, and the tube was cut to remove the guide wire. The final position of the gastrostomy tube was confirmed by relook endoscopy, and skin marking noted to be 3.5 cm at the external bumper. The final tension and compression of the abdominal wall by the PEG tube and external bumper were checked and revealed that the bumper was moderately tight and mildly deforming the skin. The feeding tube was capped, and the tube site cleaned and dressed. The duodenal bulb and second portion of the duodenum were normal. Impression: - Normal esophagus. - Normal stomach. - Normal duodenal bulb and second portion of the duodenum. - An externally removable PEG placement was successfully completed. - No specimens collected. Recommendation: - Please follow the post-PEG recommendations including: Nutrition consult for formula and volume, dry dressing only, NPO x4 hrs then water today and may use PEG tomorrow for feedings. Demetris Drake MD 11/21/2020 11:17:36 AM This report has been signed electronically. Note Initiated On: 11/21/2020 9:25 AM Number of Addenda: 0 I attest to the content of the Intraoperative Record and orders documented therein, exceptions below {[id number]}
[2020-11-21] MEDS: MULTI VIT W/MINERALS LIQUID 15 ML UDP PO SCH (11:42)
[2020-11-21] MEDS: METOPROLOL TARTRATE 1 MG/ML VIAL IV SCH ×2 (11:42→18:32)
[2020-11-21] MEDS ORDERED: VANCOMYCIN TROUGH ONE (19:30)
[2020-11-21] MEDS: ASPIRIN 81 MG CHEW PO SCH (20:56)
--- NOTE | 2020-11-21 21:11 | Pharmacy Report ---
Pharmacy Abx Dose Short Note - Date of Service November 21, 2020 - Assessment & Plan Assessment 69 year old F receiving Vancomycin for treatment of MRSA tracheitis/SSTI. Day # 4 of antimicrobial therapy. Plan Vancomycin * Trough level of 19.0 mcg/mL is therapeutic * Continue dose of 1250 mg IV every 12 hours * Goal trough level : 15 to 20 mcg/mL * Consider ordering further levels if vancomycin continued or renal changes. Pharmacy will continue to follow and will adjust dose/frequency as necessary. Thank you.
--- NOTE | 2020-11-21 23:03 | Hospitalist Progress Note ---
Date of Service November 21, 2020 Assessment & Plan (1) Acute encephalopathy: improving still with weakness, critical care myopathy, alertness and command responses are improving daily Neurology consult 11/16/20: CTH did not show hemorrhagic strokes - continue holding all sedation except for seroquel 25mg bid. Avoid opiates and benzos that can worsen mental status/cause confusion in the elderly. Ok to use ketamine or precedex as needed for agitation if Seroquel not working. (2) Acute respiratory failure with hypoxia: Intubated on 10/27 after nearly two weeks of high flow and BIPAP tracheostomy on 11/05. trach change 11/18 Patient now on CPAP via her trach with a pressure support of 12 PEEP of 6 and FiO2 of 45 high dose Decadron added for late ARDS with 20mg daily, then down to 10mg daily until 11/12, then stopped ultimate plan was for LTACH, did have tracheostomy change 11/18 PEG placed 11/21, resume tube feeds (3) Pneumonia due to COVID-19 virus: stopped Decadron 10/29, resumed higher dose Decadron for late ARDS, complete 11/12 completed course of Remdesivir, LD 10/19 convalescent plasma on 10/16 Prognosis some slight improvement looking into LTACH once more stable sputum culture with Klebsiella, treated with Rocephin transiently on meropenen, now change to vanco given some purulent material aroung trach, concern for mrsa colonization, and also covers sinusitis seen on CT (4) Afib: anticoagulated with heparin gtt rate controlled with metoprolol tartrate , heparin on hold for peg [place] 1/2-3 resume anticoagulation now that PEG placed (5) Hypertension: on metoprolol 25 tid, Hydralazine 50 q8, amlodipine 10mg daily via PEG (6) Metabolic acidosis: Resolved (7) Sepsis: Source - COVID-19 +/- possible bacterial PNA completed course of Levaquin currently is on ceftriaxone sputum culture then with Klebsiella, sinusitis on vancomycin (8) Prediabetes: HbA1C 5.9 in May (9) Hyperlipidemia: Continue her usual rosuvastatin dosing via PEG (10) GERD (gastroesophageal reflux disease): Continue her usual pantoprazole 40mg iv daily (11) Esophageal dysmotility: Aspiration precautions. (12) Hypothyroidism: TSH 1.31 in Aug. Continue levothyroxine 75 mcg PO daily (13) Anxiety: now on sedation scheduled clonazepam (14) DVT prophylaxis: on heparin gtt for afib Admission and Anticipated Discharge Date Admission Date: October 15, 2020 Subjective patient had PEG tube placed today by Dr. Drake management per ICU, Dr. Meyer reviewed chart, reviewed labs Review of Systems Review of Systems: Unobtainable due to cognitive status Physical Exam Constitutional: well developed, well nourished and + mechanically ventilated (supine, tracheostomy) Neck: trachea midline, no thyromegaly + tracheostomy present Respiratory: symmetric chest movement (ventilated) Auscultation: lungs clear to auscultation bilaterally Cardiovascular: RRR, no murmur, no edema Gastrointestinal (Abdomen): normal bowel sounds, soft, nontender, no hepatosplenomegaly Musculoskeletal: Head/Neck/Chest: normocephalic, head atraumatic and neck supple Extremities: extremities normal to inspection; no cyanosis and no clubbing Skin: no rashes, warm and dry Neurologic: CN's II-XI intact bilaterally; + does not move all extremities Psychiatric: Orientation: + not alert Results & Data Results & Data ([facility]) Vital Signs (Past 12 Hours) Vital Signs Temp Pulse Resp BP Pulse Ox 11/21/20 22:24 37.4 C 11/21/20 22:00 76 147/63 H 92 11/21/20 21:00 73 146/61 H 91 11/21/20 20:00 84 153/70 H 91 11/21/20 19:58 88 158/68 H 91 11/21/20 19:47 91 H 32 H 94 11/21/20 19:00 84 158/68 H 92 11/21/20 18:32 77 11/21/20 18:30 88 161/69 H 94 11/21/20 18:25 85 154/87 H 93 11/21/20 18:20 89 160/64 H 94 11/21/20 18:15 84 164/68 H 93 11/21/20 18:10 90 165/104 H 91 11/21/20 18:05 72 162/71 H 94 11/21/20 18:01 78 159/55 H 95 11/21/20 18:00 71 94 11/21/20 17:55 74 127/72 93 11/21/20 17:50 83 143/66 H 92 11/21/20 17:45 85 165/68 H 91 11/21/20 17:40 85 149/60 H 93 11/21/20 17:36 65 156/59 H 94 11/21/20 17:30 85 134/77 91 11/21/20 17:25 86 169/67 H 92 11/21/20 17:20 77 162/84 H 93 11/21/20 17:15 73 161/67 H 93 11/21/20 17:10 75 142/66 H 92 11/21/20 17:00 90 92 11/21/20 16:55 83 161/58 H 93 11/21/20 16:50 67 151/55 H 95 11/21/20 16:45 72 162/58 H 93 11/21/20 16:40 79 147/58 H 93 11/21/20 16:35 68 150/57 H 94 11/21/20 16:30 67 164/53 H 93 11/21/20 16:27 36.8 C 11/21/20 16:25 89 158/60 H 92 11/21/20 16:20 74 150/62 H 93 11/21/20 16:15 73 151/72 H 93 11/21/20 16:12 75 166/67 H 93 11/21/20 16:10 77 166/67 H 93 11/21/20 16:05 82 160/68 H 92 11/21/20 16:00 72 172/66 H 98 11/21/20 15:56 88 182/76 H 95 11/21/20 15:51 95 H 42 H 92 11/21/20 15:50 91 H 169/89 H 92 11/21/20 15:45 88 164/77 H 91 11/21/20 15:40 75 163/59 H 93 11/21/20 15:35 71 162/72 H 91 11/21/20 15:30 76 157/89 H 92 11/21/20 15:25 82 158/65 H 93 11/21/20 15:20 75 163/58 H 94 11/21/20 15:16 78 174/48 H 92 11/21/20 15:10 98 H 122/67 91 11/21/20 15:05 74 157/54 H 92 11/21/20 15:00 81 153/74 H 92 11/21/20 14:55 80 161/72 H 91 11/21/20 14:50 78 155/62 H 92 11/21/20 14:45 72 153/64 H 91 11/21/20 14:40 86 164/77 H 93 11/21/20 14:35 92 H 153/63 H 91 11/21/20 14:30 92 H 161/60 H 92 11/21/20 14:25 80 150/68 H 93 11/21/20 14:20 92 H 144/66 H 94 11/21/20 13:35 77 92 11/21/20 12:00 37 C 11/21/20 11:42 66 Laboratory Results Laboratory Results - last 24 hr 11/20/20 11/21/20 11/21/20 23:58 05:22 05:58 WBC 14.18 H RBC 3.03 L Hgb 9.4 L Hct 30.1 L MCV 99.3 MCH 31.0 MCHC 31.2 L RDW Std Deviation 59.0 H RDW Coeff of Mary 16.8 H Plt Count 458 H MPV 9.4 Immature Gran % (Auto) 4.7 Neut % (Auto) 80.8 Lymph % (Auto) 6.6 [place] % (Auto) 5.6 Eos % (Auto) 1.8 Baso % (Auto) 0.5 Neut # (Auto) 11.45 H Lymph # (Auto) 0.94 L [place] # (Auto) 0.80 H Eos # (Auto) 0.26 Baso # (Auto) 0.07 Immature Gran # (Auto) 0.66 H Absolute Nucleated RBC 0.07 H Nucleated RBC % (auto) 0.5 APTT PTT Ratio Sodium Potassium Chloride Carbon Dioxide Anion Gap BUN Creatinine Est Cr Clr Drug Dosing Est GFR ( Amer) Est GFR (Non-Af Amer) BUN/Creatinine Ratio Glucose POC Glucose 137 H 115 H Calcium Phosphorus Magnesium Vancomycin Trough 11/21/20 11/21/20 11/21/20 05:58 05:58 11:57 WBC RBC Hgb Hct MCV MCH MCHC RDW Std Deviation RDW Coeff of Mary Plt Count MPV Immature Gran % (Auto) Neut % (Auto) Lymph % (Auto) [place] % (Auto) Eos % (Auto) Baso % (Auto) Neut # (Auto) Lymph # (Auto) [place] # (Auto) Eos # (Auto) Baso # (Auto) Immature Gran # (Auto) Absolute Nucleated RBC Nucleated RBC % (auto) APTT 27.9 PTT Ratio 1.0 Sodium 142 Potassium 3.6 Chloride 106 Carbon Dioxide 31 Anion Gap 5.0 BUN 22 H Creatinine 0.27 L Est Cr Clr Drug Dosing 231.1 Est GFR ( Amer) 141.2 Est GFR (Non-Af Amer) 121.8 BUN/Creatinine Ratio 82.1 H Glucose 109 H POC Glucose 116 H Calcium 9.4 Phosphorus 3.1 Magnesium 2.1 Vancomycin Trough 11/21/20 11/21/20 11/21/20 17:59 18:04 19:43 WBC RBC Hgb Hct MCV MCH MCHC RDW Std Deviation RDW Coeff of Mary Plt Count MPV Immature Gran % (Auto) Neut % (Auto) Lymph % (Auto) [place] % (Auto) Eos % (Auto) Baso % (Auto) Neut # (Auto) Lymph # (Auto) [place] # (Auto) Eos # (Auto) Baso # (Auto) Immature Gran # (Auto) Absolute Nucleated RBC Nucleated RBC % (auto) APTT PTT Ratio Sodium Potassium Chloride Carbon Dioxide Anion Gap BUN Creatinine Est Cr Clr Drug Dosing Est GFR ( Amer) Est GFR (Non-Af Amer) BUN/Creatinine Ratio Glucose POC Glucose 93 93 Calcium Phosphorus Magnesium Vancomycin Trough 19.0 Medications Administered Current Inpatient Medications Amlodipine Besylate (Amlodipine Besylate 5 Mg Tab) 10 mg PO QAM [facility] Stop: 12/08/20 14:44 Last Admin: 11/21/20 10:18 Dose: Not Given Documented by: Aspirin (Aspirin 81 Mg Chew) 81 mg PO HS [facility] Stop: 11/27/20 20:59 Last Admin: 11/21/20 20:56 Dose: 81 mg Documented by: Atropine Sulfate (Atropine Sulfate 0.1 Mg/Ml Syringe) 1 mg INJ PRN PRN PRN Reason: HR < 40 Stop: 12/13/20 10:45 Fentanyl Citrate (Fentanyl Citrate 100 Mcg/2 Ml Vial) 25 mcg IV Q2H PRN PRN Reason: Pain Stop: 11/25/20 12:19 Last Admin: 11/21/20 20:48 Dose: 25 mcg Documented by: Heparin Sodium (Beef Lung) (Heparin 10 Unit/Ml 5 Ml Flush) 5 ml FLUSH PRN PRN PRN Reason: Flush Stop: 11/27/20 22:57 Hydralazine HCl (Hydralazine Hcl 20 Mg/Ml Vial) 10 mg IV Q6H PRN PRN Reason: SBP > 160 Stop: 12/08/20 10:34 Last Admin: 11/08/20 12:56 Dose: 10 mg Documented by: Hydralazine HCl (Hydralazine Tab 50 Mg Tab) 50 mg NG Q8 [facility] Stop: 12/11/20 13:59 Last Admin: 11/21/20 20:54 Dose: 50 mg Documented by: Heparin Sodium/Dextrose (Heparin Sodium/Dextrose) 25,000 units in 500 mls @ 29 mls/hr IV .[id number] [facility]; Protocol Stop: 12/18/20 11:14 Last Titration: 11/19/20 18:59 Dose: Infused Documented by: Pantoprazole Sodium 40 mg/ (Syringe) 10 mls @ 5 mls/min IV BID [facility] Stop: 12/20/20 20:59 Last Admin: 11/21/20 20:52 Dose: 5 mls/min Documented by: Vancomycin HCl 1,250 mg/ (Sodium Chloride) 275 mls @ 200 mls/hr IV Q12H [facility] Stop: 11/26/20 15:59 Last Infusion: 11/21/20 22:49 Dose: Infused Documented by: Metronidazole (Flagyl) 500 mg in 100 mls @ 100 mls/hr IV Q8H [facility] Stop: 11/27/20 19:59 Last Infusion: 11/21/20 22:49 Dose: Infused Documented by: Insulin Aspart (Insulin Aspart 100 Units/Ml 3 Ml Pen) 0 units SC Q6 [facility]; Protocol Stop: 12/17/20 11:59 Last Admin: 11/21/20 18:20 Dose: Not Given Documented by: Levothyroxine Sodium (Levothyroxine Sodium 50 Mcg Tablet) 50 mcg PO DAILYBB [facility] Stop: 12/16/20 06:29 Last Admin: 11/21/20 05:25 Dose: 50 mcg Documented by: Metoprolol Tartrate (Metoprolol Tartrate 25 Mg Tab) 25 mg PO TID [facility] Stop: 12/16/20 20:59 Last Admin: 11/21/20 20:53 Dose: 25 mg Documented by: Metoprolol Tartrate (Metoprolol Tartrate 1 Mg/Ml Vial) 5 mg IV Q8H [facility] Stop: 11/22/20 03:01 Last Admin: 11/21/20 18:32 Dose: 5 mg Documented by: Miscellaneous Information (Vancomycin Consult Active) 1 ea N/A UD PRN PRN Reason: Consult Stop: 12/18/20 09:07 Multi-Ingredient Cream (Artificial Tears Op Oint 3.5 Gm Tube) 1 appln OP BID [facility] Stop: 12/17/20 20:59 Last Admin: 11/21/20 20:51 Dose: 1 appln Documented by: Multivitamins/Minerals (Multi Vit W/Minerals Liquid 15 Ml Udp) 15 ml PO DAILY@1200 [facility] Stop: 11/28/20 11:59 Last Admin: 11/21/20 11:42 Dose: Not Given Documented by: Nutritional Formula (Peptamen Intense Vhp 1.0 Juan Daniel 1,000 Ml Bag) 1,000 ml OG DAILY@1600 [facility]; Protocol Stop: 12/03/20 15:59 Last Admin: 11/20/20 08:36 Dose: 1,000 ml Documented by: Polyethylene Glycol (Polyethylene (Miralax) 17 Gm Pack) 17 gm PO DAILY PRN PRN Reason: Constipation Stop: 12/06/20 09:00 Rosuvastatin Calcium (Rosuvastatin Calcium 5 Mg Tab) 5 mg PO MoWeFr@0900 [facility] Stop: 12/19/20 08:59 Last Admin: 11/19/20 08:15 Dose: 5 mg Documented by: PG Care Time/CCT Total # of Minutes Spent Total Time Spent with Patient: Total time spent is greater than 50% in coordination of care (as documented) at patient's floor/unit and/or counseling patient: Coding Level of Care Code 87960 Subseq Hosp Care Lvl 2 Diagnoses Acute encephalopathy G93.40 Acute respiratory failure with hypoxia J96.01 Pneumonia due to COVID-19 virus U07.1; J12.89 Afib I48.91 Hypertension I10 Metabolic acidosis E87.2 Sepsis A41.9 Sepsis acute organ dysfunction status: unspecified Sepsis type: sepsis due to unspecified organism Prediabetes R73.03 Hyperlipidemia E78.5 GERD (gastroesophageal reflux disease) K21.9 Esophageal dysmotility K22.4 Hypothyroidism E03.9 Anxiety F41.9 DVT prophylaxis Z29.9 (1) Sepsis Sepsis acute organ dysfunction status: unspecified Sepsis type: sepsis due to unspecified organism Qualified Code(s): A41.9 - Sepsis, unspecified organism
[2020-11-22] MEDS: INSULIN ASPART 100 UNITS/ML 3 ML PEN SC SCH ×4 (01:40→18:11)
[2020-11-22 02:47] LABS: iSTAT Allen Test Pass; iSTAT Arterial Blood Gas HCO3 30 meg/L (19-24); iSTAT Arterial Blood Gas pCO2 41 mmHg (35-46); iSTAT Arterial Blood Gas pH 7.47 (7.35-7.45); iSTAT Arterial Blood Gas pO2 59 mmHg (80-95); iSTAT Carbon Dioxide 31 mmol/L (24-31); iSTAT FiO2 40 %; iSTAT Site R Radial
[2020-11-22] MEDS: METOPROLOL TARTRATE 1 MG/ML VIAL IV SCH (03:02)
[2020-11-22] MEDS: fentaNYL citrate 100 MCG/2 ML VIAL IV PRN ×2 (04:57→21:46)
[2020-11-22] MEDS: hydrALAZINE TAB 50 MG TAB NG SCH ×3 (05:04→21:41)
[2020-11-22] MEDS: metroNIDAZOLE 500 MG/100 ML BAG IV SCH ×3 (05:09→21:39)
[2020-11-22] MEDS: LEVOTHYROXINE SODIUM 50 MCG TABLET PO SCH (05:12)
[2020-11-22] MEDS: Heparin Adult LOW DOSE Wt-Based Dextrose 5% 25,000 units/500 mL IV SCH ×2 (06:00→23:45)
[2020-11-22 06:39] LABS: Basophils # (auto) 0.02 K/uL (0-0.2); Basophils % (auto) 0.1 %; Eosinophils # (auto) 0.18 K/uL (0-0.5); Eosinophils % (auto) 1.3 %; Hematocrit (blood only) 28.4 % (37-47); Hemoglobin 8.9 g/dL (12.0-16.0); Immature Granulocytes % (auto) 2.2 %; Lymphocytes # (auto) 0.83 K/uL (1.2-3.4); Lymphocytes % (auto) 6.1 %; Mean Corpuscular Hgb Conc 31.3 g/dL (32-36); Mean Platelet Volume 9.3 fL (7.4-10.4); Monocytes # (auto) 0.59 K/uL (0.11-0.59); Monocytes % (auto) 4.3 %; Neutrophils # (auto) 11.66 K/uL (1.4-6.5); Nucleated RBC # (auto) 0.02 K/uL (0-0); Nucleated RBC % (auto) 0.2 %; Platelet Count 330 K/uL (130-400); RDW Coefficient of Variation 16.8 % (11.5-14.5); RDW Standard Deviation 59.7 fL (36.4-46.3); Red Blood Count 2.87 M/uL (4.2-5.4); White Blood Count 13.58 K/uL (4.8-10.8)
[2020-11-22 06:53] LABS: BUN Creatinine Ratio 46.1 (10-20); Calcium 8.5 mg/dl (8.5-10.1); Creatinine Clr Calc Pharmacy 231.4 ml/min; Est GFR (African American) 141.2; Est GFR (Non-African American) 121.8; Magnesium 2.1 mg/dl (1.8-2.4); Phosphorus 2.8 mg/dl (2.5-4.9); Potassium 3.2 mmol/L (3.5-5.1)
[2020-11-22] MEDS: VANCOMYCIN HCL 1,250 MG in SODIUM CHLORIDE 0.9% 250 ML IV SCH ×2 (07:41→23:46)
[2020-11-22] MEDS: ARTIFICIAL TEARS OP OINT 3.5 GM TUBE OP SCH ×2 (07:43→21:46)
[2020-11-22] MEDS: PANTOprazole 40 MG in SYRINGE 0 ML IV SCH (07:43)
[2020-11-22] MEDS: amLODIPine BESYLATE 5 MG TAB PO SCH (07:54)
[2020-11-22] MEDS: ROSUVASTATIN CALCIUM 5 MG TAB PO SCH (07:54)
[2020-11-22] MEDS: METOPROLOL TARTRATE 25 MG TAB PO SCH ×3 (07:55→21:41)
--- NOTE | 2020-11-22 08:20 | Hospitalist Progress Note ---
Date of Service November 22, 2020 Assessment & Plan (1) Acute encephalopathy: improving mental status but with profound weakness, critical care myopathy, alertness and command responses are improving daily Neurology consult 11/16/20: CTH did not show hemorrhagic strokes - continue holding all sedation except for seroquel 25mg bid. Avoid opiates and benzos that can worsen mental status/cause confusion in the elderly. Ok to use ketamine or precedex as needed for agitation if Seroquel not working. (2) Acute respiratory failure with hypoxia: Intubated on 10/27 after nearly two weeks of high flow and BIPAP tracheostomy on 11/05. trach change 11/18 Patient now on CPAP via her trach with a pressure support of 12 PEEP of 6 and FiO2 of 45 high dose Decadron added for late ARDS with 20mg daily, then down to 10mg daily until 11/12, then stopped ultimate plan is for LTACH, did have tracheostomy change 11/18 PEG placed 11/21, resume tube feeds per ICU will make referral to LTACH, hopeful for placement later this week (3) Pneumonia due to COVID-19 virus: stopped Decadron 10/29, resumed higher dose Decadron for late ARDS, complete 11/12 completed course of Remdesivir, LD 10/19 convalescent plasma on 10/16 Prognosis some slight improvement looking into LTACH once more stable sputum culture with Klebsiella, treated with Rocephin transiently on meropenen, now change to vanco given some purulent material aroung trach, concern for mrsa colonization, and also covers sinusitis seen on CT (4) Afib: anticoagulated with heparin gtt rate controlled with metoprolol tartrate , heparin on hold for peg [place] 1/2-3 resume anticoagulation now that PEG placed, will need NOAC via PEG (5) Hypertension: on metoprolol 25 tid, Hydralazine 50 q8, amlodipine 10mg daily via PEG (6) Metabolic acidosis: Resolved (7) Sepsis: Source - COVID-19 +/- possible bacterial PNA completed course of Levaquin currently is on ceftriaxone sputum culture then with Klebsiella, sinusitis on vancomycin (8) Prediabetes: HbA1C 5.9 in May (9) Hyperlipidemia: Continue her usual rosuvastatin dosing via PEG (10) GERD (gastroesophageal reflux disease): Continue her usual pantoprazole 40mg iv daily (11) Esophageal dysmotility: Aspiration precautions. (12) Hypothyroidism: TSH 1.31 in Aug. Continue levothyroxine 75 mcg PO daily (13) Anxiety: now on sedation scheduled clonazepam (14) DVT prophylaxis: on heparin gtt for afib Admission and Anticipated Discharge Date Admission Date: October 15, 2020 Subjective patient stable today on CPAP 12/6 and FiO2 40% labs stable I called patient's niece for update spoke with CM, looking to make referral and insurance auth for LTACH but will check with fuel cell binder first Review of Systems Review of Systems: Unobtainable due to cognitive status Physical Exam Constitutional: well developed, well nourished and + mechanically ventilated (supine, tracheostomy) Neck: trachea midline, no thyromegaly + tracheostomy present Respiratory: symmetric chest movement (ventilated) Auscultation: lungs clear to auscultation bilaterally Cardiovascular: RRR, no murmur, no edema Gastrointestinal (Abdomen): normal bowel sounds, soft, nontender, no hepatosplenomegaly Musculoskeletal: Head/Neck/Chest: normocephalic, head atraumatic and neck supple Extremities: extremities normal to inspection; no cyanosis and no clubbing Skin: no rashes, warm and dry Neurologic: patellar DTR's 2+ bilat, sensation intact and PERRL, EOMI, accommodation nl, no face palsy, no dysarthria CN's II-XI intact bilaterally; + does not move all extremities Psychiatric: Orientation: alert Affect: + anxious affect Results & Data Results & Data ([facility]) Vital Signs (Past 12 Hours) Vital Signs Temp Pulse Resp BP Pulse Ox 11/22/20 08:06 36.8 C 73 24 152/65 H 91 11/22/20 06:00 82 16 146/54 H 90 11/22/20 05:00 90 91 11/22/20 04:00 67 16 137/53 L 92 11/22/20 03:02 66 149/59 H 11/22/20 03:00 74 149/59 H 90 11/22/20 02:39 71 11/22/20 02:38 93 H 40 H 91 11/22/20 02:00 97 H 20 163/64 H 92 11/22/20 01:00 85 147/66 H 89 L 11/22/20 00:00 85 20 153/63 H 90 11/21/20 23:47 97 H 40 H 90 11/21/20 23:00 74 16 145/62 H 91 11/21/20 22:24 37.4 C 11/21/20 22:00 76 147/63 H 92 11/21/20 21:00 73 146/61 H 91 Laboratory Results Laboratory Results - last 24 hr 11/21/20 11/21/20 11/21/20 11:57 17:59 18:04 WBC RBC Hgb Hct MCV MCH MCHC RDW Std Deviation RDW Coeff of Mary Plt Count MPV Immature Gran % (Auto) Neut % (Auto) Lymph % (Auto) [place] % (Auto) Eos % (Auto) Baso % (Auto) Neut # (Auto) Lymph # (Auto) [place] # (Auto) Eos # (Auto) Baso # (Auto) Immature Gran # (Auto) Absolute Nucleated RBC Nucleated RBC % (auto) Sample Site POC pH POC pCO2 POC pO2 POC HCO3 POC Total CO2 POC Base Excess POC ABG O2 Sat Kishan Test O2 Delivery Device POC FiO2 PEEP Pressure Support Vent Sodium Potassium Chloride Carbon Dioxide Anion Gap BUN Creatinine Est Cr Clr Drug Dosing Est GFR ( Amer) Est GFR (Non-Af Amer) BUN/Creatinine Ratio Glucose POC Glucose 116 H 93 93 Calcium Phosphorus Magnesium Vancomycin Trough 11/21/20 11/22/20 11/22/20 19:43 01:21 02:33 WBC RBC Hgb Hct MCV MCH MCHC RDW Std Deviation RDW Coeff of Mary Plt Count MPV Immature Gran % (Auto) Neut % (Auto) Lymph % (Auto) [place] % (Auto) Eos % (Auto) Baso % (Auto) Neut # (Auto) Lymph # (Auto) [place] # (Auto) Eos # (Auto) Baso # (Auto) Immature Gran # (Auto) Absolute Nucleated RBC Nucleated RBC % (auto) Sample Site R Radial POC pH 7.47 H POC pCO2 41 POC pO2 59 L POC HCO3 30 H POC Total CO2 31 POC Base Excess 6.0 H POC ABG O2 Sat 92.0 Kishan Test Pass O2 Delivery Device Ventilator POC FiO2 40 PEEP 6 Pressure Support Vent 12 Sodium Potassium Chloride Carbon Dioxide Anion Gap BUN Creatinine Est Cr Clr Drug Dosing Est GFR ( Amer) Est GFR (Non-Af Amer) BUN/Creatinine Ratio Glucose POC Glucose 101 H Calcium Phosphorus Magnesium Vancomycin Trough 19.0 11/22/20 11/22/20 11/22/20 05:12 05:51 05:51 WBC 13.58 H RBC 2.87 L Hgb 8.9 L Hct 28.4 L MCV 99.0 MCH 31.0 MCHC 31.3 L RDW Std Deviation 59.7 H RDW Coeff of Mary 16.8 H Plt Count 330 MPV 9.3 Immature Gran % (Auto) 2.2 Neut % (Auto) 86.0 Lymph % (Auto) 6.1 [place] % (Auto) 4.3 Eos % (Auto) 1.3 Baso % (Auto) 0.1 Neut # (Auto) 11.66 H Lymph # (Auto) 0.83 L [place] # (Auto) 0.59 Eos # (Auto) 0.18 Baso # (Auto) 0.02 Immature Gran # (Auto) 0.30 H Absolute Nucleated RBC 0.02 H Nucleated RBC % (auto) 0.2 Sample Site POC pH POC pCO2 POC pO2 POC HCO3 POC Total CO2 POC Base Excess POC ABG O2 Sat Kishan Test O2 Delivery Device POC FiO2 PEEP Pressure Support Vent Sodium 143 Potassium 3.2 L Chloride 107 Carbon Dioxide 30 Anion Gap 6.0 BUN 13 Creatinine 0.27 L Est Cr Clr Drug Dosing 231.4 Est GFR ( Amer) 141.2 Est GFR (Non-Af Amer) 121.8 BUN/Creatinine Ratio 46.1 H Glucose 91 POC Glucose 102 H Calcium 8.5 Phosphorus 2.8 Magnesium 2.1 Vancomycin Trough Medications Administered Current Inpatient Medications Amlodipine Besylate (Amlodipine Besylate 5 Mg Tab) 10 mg PO [facility] Stop: 12/08/20 14:44 Last Admin: 11/22/20 07:54 Dose: 10 mg Documented by: Aspirin (Aspirin 81 Mg Chew) 81 mg PO [facility] Stop: 11/27/20 20:59 Last Admin: 11/21/20 20:56 Dose: 81 mg Documented by: Atropine Sulfate (Atropine Sulfate 0.1 Mg/Ml Syringe) 1 mg INJ PRN PRN PRN Reason: HR < 40 Stop: 12/13/20 10:45 Fentanyl Citrate (Fentanyl Citrate 100 Mcg/2 Ml Vial) 25 mcg IV Q2H PRN PRN Reason: Pain Stop: 11/25/20 12:19 Last Admin: 11/22/20 04:57 Dose: 25 mcg Documented by: Heparin Sodium (Beef Lung) (Heparin 10 Unit/Ml 5 Ml Flush) 5 ml FLUSH PRN PRN PRN Reason: Flush Stop: 11/27/20 22:57 Hydralazine HCl (Hydralazine Hcl 20 Mg/Ml Vial) 10 mg IV Q6H PRN PRN Reason: SBP > 160 Stop: 12/08/20 10:34 Last Admin: 11/08/20 12:56 Dose: 10 mg Documented by: Hydralazine HCl (Hydralazine Tab 50 Mg Tab) 50 mg NG Q8 [facility] Stop: 12/11/20 13:59 Last Admin: 11/22/20 05:04 Dose: Not Given Documented by: Heparin Sodium/Dextrose (Heparin Sodium/Dextrose) 25,000 units in 500 mls @ 29 mls/hr IV .[id number] [facility]; Protocol Stop: 12/18/20 11:14 Last Titration: 11/22/20 07:22 Dose: 1,450 units/hr, 29 mls/hr Documented by: Pantoprazole Sodium 40 mg/ (Syringe) 10 mls @ 5 mls/min IV BID [facility] Stop: 12/20/20 20:59 Last Admin: 11/22/20 07:43 Dose: 5 mls/min Documented by: Vancomycin HCl 1,250 mg/ (Sodium Chloride) 275 mls @ 200 mls/hr IV Q12H [facility] Stop: 11/26/20 15:59 Last Admin: 11/22/20 07:41 Dose: 200 mls/hr Documented by: Metronidazole (Flagyl) 500 mg in 100 mls @ 100 mls/hr IV Q8H [facility] Stop: 11/27/20 19:59 Last Infusion: 11/22/20 06:09 Dose: Infused Documented by: Insulin Aspart (Insulin Aspart 100 Units/Ml 3 Ml Pen) 0 units SC Q6 [facility]; Protocol Stop: 12/17/20 11:59 Last Admin: 11/22/20 05:12 Dose: Not Given Documented by: Levothyroxine Sodium (Levothyroxine Sodium 50 Mcg Tablet) 50 mcg PO DAILYBB [facility] Stop: 12/16/20 06:29 Last Admin: 11/22/20 05:12 Dose: Not Given Documented by: Metoprolol Tartrate (Metoprolol Tartrate 25 Mg Tab) 25 mg PO TID [facility] Stop: 12/16/20 20:59 Last Admin: 11/22/20 07:55 Dose: 25 mg Documented by: Miscellaneous Information (Vancomycin Consult Active) 1 ea N/A UD PRN PRN Reason: Consult Stop: 12/18/20 09:07 Multi-Ingredient Cream (Artificial Tears Op Oint 3.5 Gm Tube) 1 appln OP BID [facility] Stop: 12/17/20 20:59 Last Admin: 11/22/20 07:43 Dose: 1 appln Documented by: Multivitamins/Minerals (Multi Vit W/Minerals Liquid 15 Ml Udp) 15 ml PO DAILY@1200 [facility] Stop: 11/28/20 11:59 Last Admin: 11/21/20 11:42 Dose: Not Given Documented by: Nutritional Formula (Peptamen Intense Vhp 1.0 Juan Daniel 1,000 Ml Bag) 1,000 ml OG DAILY@1600 [facility]; Protocol Stop: 12/03/20 15:59 Last Admin: 11/20/20 08:36 Dose: 1,000 ml Documented by: Polyethylene Glycol (Polyethylene (Miralax) 17 Gm Pack) 17 gm PO DAILY PRN PRN Reason: Constipation Stop: 12/06/20 09:00 Rosuvastatin Calcium (Rosuvastatin Calcium 5 Mg Tab) 5 mg PO MoWeFr@0900 [facility] Stop: 12/19/20 08:59 Last Admin: 11/22/20 07:54 Dose: 5 mg Documented by: PG Care Time/CCT Total # of Minutes Spent Total Time Spent with Patient: Total time spent is greater than 50% in coordination of care (as documented) at patient's floor/unit and/or counseling patient: Coding Level of Care Code 82774 Subseq Hosp Care Lvl 2 Diagnoses Acute encephalopathy G93.40 Acute respiratory failure with hypoxia J96.01 Pneumonia due to COVID-19 virus U07.1; J12.89 Afib I48.91 Hypertension I10 Metabolic acidosis E87.2 Sepsis A41.9 Sepsis acute organ dysfunction status: unspecified Sepsis type: sepsis due to unspecified organism Prediabetes R73.03 Hyperlipidemia E78.5 GERD (gastroesophageal reflux disease) K21.9 Esophageal dysmotility K22.4 Hypothyroidism E03.9 Anxiety F41.9 DVT prophylaxis Z29.9 (1) Sepsis Sepsis acute organ dysfunction status: unspecified Sepsis type: sepsis due to unspecified organism Qualified Code(s): A41.9 - Sepsis, unspecified organism
--- NOTE | 2020-11-22 08:40 | XRay Report ---
SINGLE VIEW CHEST CLINICAL HISTORY: Respiratory failure. FINDINGS: An AP, portable, upright chest radiograph is compared to study dated 11/12/2020. Correlatio n is made with chest CT dated 10/15/2020. The examination is degraded by portable technique and patie nt rotation. A left subclavian central venous catheter and an enteric tube have been removed. A trac heostomy is unchanged in position. The cardiomediastinal silhouette is unremarkable noting atheroscle rotic calcification of the thoracic aorta. Diffuse airspace consolidation throughout both lungs is un changed. Small pleural effusions are suspected. No pneumothorax is seen. The skeletal structures are osteopenic. The bony thorax is grossly intact. A gastrostomy tube is seen in the left upper quadrant. Cholecystectomy clips are noted in the right upper quadrant. IMPRESSION: 1. An enteric tube and a left subclavian central venous catheter have been removed. 2. Diffuse/multifocal airspace consolidation is unchanged. 3. Small pleural effusions are suspected. ACT 112: Negative or not required by law. Electronically signed by: Steven Chavez M.D. 11/22/2020 8:38 AM
--- NOTE | 2020-11-22 09:39 | Communication Note ---
Date of Service: November 22, 2020 PEG placed on 11/21/[address] Drake. PEG checked today and appears in site on mid upper abdomen. Bumper slightly below #4 jade. PEG tube can be rotated, no bleeding, erythema noted. May use PEG for meds and feeding today. Please recall GI PRN
[2020-11-22] MEDS: MULTI VIT W/MINERALS LIQUID 15 ML UDP PO SCH (11:56)
--- NOTE | 2020-11-22 12:32 | Critical Care Progress Note ---
Date of Service November 22, 2020 Assessment & Plan (1) 2019 novel coronavirus–infected pneumonia (NCIP)#8211;infected pneumonia (NCIP): Impression: 69-year-old female with severe acute hypoxemic respiratory failure intubated due to novel coronavirus with ARDS now status post tracheostomy and PEG tube placement. PLAN: Neuro: Continues to have delirium. She appears flaccid in all her extremities. We will check a CK. 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 Consider MRI of the brain and EEG in the near future if no improvement. Holding all sedating agents. Resp: Continue pressure support during the day and assist control at night. We will continue to wean ventilator as able. Tracheostomy exchange was completed on 11/18/2020. Continues to have significant mucopurulent secretions. Currently on vancomycin for total of 7 days. Pharmacy is assisting with dosing. She is growing staph aureus from the tracheostomy site. Tracheostomy cultures growing Prevotella intermedia as well. Flagyl started yesterday. -Aerosol trach mask trials to begin, 30 minutes to 1 hour today then placed back on ventilator CV: She has paroxysmal atrial fibrillation during this hospital admission. Heparin drip on hold due to PEG tube placement. Continue rate control with metoprolol. IV metoprolol started for today given her PEG tube placement. Can switch back to p.o. tomorrow. Continue amlodipine and hydralazine for blood pressure. TSH: 0.9 within normal limit 11/10/2020 ID: Continue vancomycin and Flagyl for MRSA and Prevotella intermedia growing from the secretions around the tracheostomy site. Tracheostomy exchange occurred on 11/18. GI/Nutrition: G PEG tube has been placed. Appreciate their assistance. Restart tube feeds tomorrow. No further hematochezia was seen. Hemoglobin is stable. Continue Protonix 40 mg twice daily. Heme: Monitor H&H. She has evidence of thrombocytosis likely reactive from Covid. Holding heparin drip as noted above. Likely restart heparin drip tomorrow if hemoglobin remains stable. Endocrine: Glycemic control per protocol. Continue Synthroid Code Status: DNR. Disposition: ICU at this time and she will likely need LTAC placement in the near future. Overall prognosis guarded. --Prophylaxis VTE: Heparin drip on hold GI: Protonix twice daily Diet: Restart tube feeds tomorrow Discussed with bedside RN. (2) Paroxysmal A-fib: (3) Acute encephalopathy: (4) Tracheitis: (5) MRSA (methicillin resistant staph aureus) culture positive: Admission and Anticipated Discharge Date Admission Date: October 15, 2020 Subjective PEG placed by Dr. Talat Callaway patient had PEG tube placed today by Dr. Drake Review of Systems Review of Systems: Unable to obtain secondary to tracheostomy Physical Exam Physical Exam: General: Alert. nontoxic. Skin: Warm, dry, Head: Atraumatic Ears, nose, mouth and throat: airway patent, tracheostomy in place Cardiovascular: Normal peripheral perfusion Respiratory: no respiratory distress Gastrointestinal: Non distended Musculoskeletal: No deformity Results & Data Results & Data ([facility]) Vital Signs (Past 12 Hours) Vital Signs Temp Pulse Resp BP Pulse Ox 11/22/20 12:00 62 139/62 91 11/22/20 11:59 30 H 11/22/20 11:18 37.2 C 73 24 138/63 92 11/22/20 11:05 68 138/63 90 11/22/20 11:00 57 L 132/64 93 11/22/20 10:00 60 150/59 H 92 11/22/20 09:00 56 L 132/55 L 91 11/22/20 08:32 67 26 H 94 11/22/20 08:06 36.8 C 73 24 152/65 H 91 11/22/20 08:00 103 H 158/72 H 92 11/22/20 07:41 76 158/62 H 91 11/22/20 07:00 84 152/65 H 93 11/22/20 06:00 82 16 146/54 H 90 11/22/20 05:00 90 91 11/22/20 04:00 67 16 137/53 L 92 11/22/20 03:02 66 149/59 H 11/22/20 03:00 74 149/59 H 90 11/22/20 02:39 71 11/22/20 02:38 93 H 40 H 91 11/22/20 02:00 97 H 20 163/64 H 92 11/22/20 01:00 85 147/66 H 89 L Laboratory Results 11/22/20 11/22/20 11/22/20 Range/Units 16:52 12:15 11:07 WBC (4.8-10.8) K/uL RBC (4.2-5.4) M/uL Hgb (12.0-16.0) g/dL Hct (37-47) % MCV (80-100) fL MCH (25-34) pg MCHC (32-36) g/dL RDW Std Deviation (36.4-46.3) fL RDW Coeff of Mary (11.5-14.5) % Plt Count (130-400) K/uL MPV (7.4-10.4) fL Immature Gran % (Auto) % Neut % (Auto) % Lymph % (Auto) % [place] % (Auto) % Eos % (Auto) % Baso % (Auto) % Neut # (Auto) (1.4-6.5) K/uL Lymph # (Auto) (1.2-3.4) K/uL [place] # (Auto) (0.11-0.59) K/uL Eos # (Auto) (0-0.5) K/uL Baso # (Auto) (0-0.2) K/uL Immature Gran # (Auto) (0.00-0.02) K/uL Absolute Nucleated RBC (0-0) K/uL Nucleated RBC % (auto) % APTT 55.8 H* (21.0-31.0) Seconds PTT Ratio 2.0 Sample Site POC pH (7.35-7.45) POC pCO2 (35-46) mmHg POC pO2 (80-95) mmHg POC HCO3 (19-24) beau/L POC Total CO2 (24-31) mmol/L POC Base Excess (-9-1.8) beau/L POC ABG O2 Sat (90-95) % Kishan Test O2 Delivery Device POC FiO2 % PEEP Pressure Support Vent Sodium (136-145) mmol/L Potassium (3.5-5.1) mmol/L Chloride (98-107) mmol/L Carbon Dioxide (21-32) mmol/L Anion Gap (3-11) BUN (7-18) mg/dl Creatinine (0.6-1.2) mg/dl Est Cr Clr Drug Dosing ml/min Est GFR ( Amer) Est GFR (Non-Af Amer) BUN/Creatinine Ratio (10-20) Glucose (70-99) mg/dl POC Glucose 129 H 118 H (70-99) mg/dl Calcium (8.5-10.1) mg/dl Phosphorus (2.5-4.9) mg/dl Magnesium (1.8-2.4) mg/dl Vancomycin Trough (See Comment) mcg/ml 11/22/20 11/22/20 11/22/20 Range/Units 05:51 05:51 05:12 WBC 13.58 H (4.8-10.8) K/uL RBC 2.87 L (4.2-5.4) M/uL Hgb 8.9 L (12.0-16.0) g/dL Hct 28.4 L (37-47) % MCV 99.0 (80-100) fL MCH 31.0 (25-34) pg MCHC 31.3 L (32-36) g/dL RDW Std Deviation 59.7 H (36.4-46.3) fL RDW Coeff of Mary 16.8 H (11.5-14.5) % Plt Count 330 (130-400) K/uL MPV 9.3 (7.4-10.4) fL Immature Gran % (Auto) 2.2 % Neut % (Auto) 86.0 % Lymph % (Auto) 6.1 % [place] % (Auto) 4.3 % Eos % (Auto) 1.3 % Baso % (Auto) 0.1 % Neut # (Auto) 11.66 H (1.4-6.5) K/uL Lymph # (Auto) 0.83 L (1.2-3.4) K/uL [place] # (Auto) 0.59 (0.11-0.59) K/uL Eos # (Auto) 0.18 (0-0.5) K/uL Baso # (Auto) 0.02 (0-0.2) K/uL Immature Gran # (Auto) 0.30 H (0.00-0.02) K/uL Absolute Nucleated RBC 0.02 H (0-0) K/uL Nucleated RBC % (auto) 0.2 % APTT (21.0-31.0) Seconds PTT Ratio Sample Site POC pH (7.35-7.45) POC pCO2 (35-46) mmHg POC pO2 (80-95) mmHg POC HCO3 (19-24) beau/L POC Total CO2 (24-31) mmol/L POC Base Excess (-9-1.8) beau/L POC ABG O2 Sat (90-95) % Kishan Test O2 Delivery Device POC FiO2 % PEEP Pressure Support Vent Sodium 143 (136-145) mmol/L Potassium 3.2 L (3.5-5.1) mmol/L Chloride 107 (98-107) mmol/L Carbon Dioxide 30 (21-32) mmol/L Anion Gap 6.0 (3-11) BUN 13 (7-18) mg/dl Creatinine 0.27 L (0.6-1.2) mg/dl Est Cr Clr Drug Dosing 231.4 ml/min Est GFR ( Amer) 141.2 Est GFR (Non-Af Amer) 121.8 BUN/Creatinine Ratio 46.1 H (10-20) Glucose 91 (70-99) mg/dl POC Glucose 102 H (70-99) mg/dl Calcium 8.5 (8.5-10.1) mg/dl Phosphorus 2.8 (2.5-4.9) mg/dl Magnesium 2.1 (1.8-2.4) mg/dl Vancomycin Trough (See Comment) mcg/ml 11/22/20 11/22/20 11/21/20 Range/Units 02:33 01:21 19:43 WBC (4.8-10.8) K/uL RBC (4.2-5.4) M/uL Hgb (12.0-16.0) g/dL Hct (37-47) % MCV (80-100) fL MCH (25-34) pg MCHC (32-36) g/dL RDW Std Deviation (36.4-46.3) fL RDW Coeff of Mary (11.5-14.5) % Plt Count (130-400) K/uL MPV (7.4-10.4) fL Immature Gran % (Auto) % Neut % (Auto) % Lymph % (Auto) % [place] % (Auto) % Eos % (Auto) % Baso % (Auto) % Neut # (Auto) (1.4-6.5) K/uL Lymph # (Auto) (1.2-3.4) K/uL [place] # (Auto) (0.11-0.59) K/uL Eos # (Auto) (0-0.5) K/uL Baso # (Auto) (0-0.2) K/uL Immature Gran # (Auto) (0.00-0.02) K/uL Absolute Nucleated RBC (0-0) K/uL Nucleated RBC % (auto) % APTT (21.0-31.0) Seconds PTT Ratio Sample Site R Radial POC pH 7.47 H (7.35-7.45) POC pCO2 41 (35-46) mmHg POC pO2 59 L (80-95) mmHg POC HCO3 30 H (19-24) beau/L POC Total CO2 31 (24-31) mmol/L POC Base Excess 6.0 H (-9-1.8) beau/L POC ABG O2 Sat 92.0 (90-95) % Kishan Test Pass O2 Delivery Device Ventilator POC FiO2 40 % PEEP 6 Pressure Support Vent 12 Sodium (136-145) mmol/L Potassium (3.5-5.1) mmol/L Chloride (98-107) mmol/L Carbon Dioxide (21-32) mmol/L Anion Gap (3-11) BUN (7-18) mg/dl Creatinine (0.6-1.2) mg/dl Est Cr Clr Drug Dosing ml/min Est GFR ( Amer) Est GFR (Non-Af Amer) BUN/Creatinine Ratio (10-20) Glucose (70-99) mg/dl POC Glucose 101 H (70-99) mg/dl Calcium (8.5-10.1) mg/dl Phosphorus (2.5-4.9) mg/dl Magnesium (1.8-2.4) mg/dl Vancomycin Trough 19.0 (See Comment) mcg/ml 11/21/20 11/21/20 Range/Units 18:04 17:59 WBC (4.8-10.8) K/uL RBC (4.2-5.4) M/uL Hgb (12.0-16.0) g/dL Hct (37-47) % MCV (80-100) fL MCH (25-34) pg MCHC (32-36) g/dL RDW Std Deviation (36.4-46.3) fL RDW Coeff of Mary (11.5-14.5) % Plt Count (130-400) K/uL MPV (7.4-10.4) fL Immature Gran % (Auto) % Neut % (Auto) % Lymph % (Auto) % [place] % (Auto) % Eos % (Auto) % Baso % (Auto) % Neut # (Auto) (1.4-6.5) K/uL Lymph # (Auto) (1.2-3.4) K/uL [place] # (Auto) (0.11-0.59) K/uL Eos # (Auto) (0-0.5) K/uL Baso # (Auto) (0-0.2) K/uL Immature Gran # (Auto) (0.00-0.02) K/uL Absolute Nucleated RBC (0-0) K/uL Nucleated RBC % (auto) % APTT (21.0-31.0) Seconds PTT Ratio Sample Site POC pH (7.35-7.45) POC pCO2 (35-46) mmHg POC pO2 (80-95) mmHg POC HCO3 (19-24) beau/L POC Total CO2 (24-31) mmol/L POC Base Excess (-9-1.8) beau/L POC ABG O2 Sat (90-95) % Kishan Test O2 Delivery Device POC FiO2 % PEEP Pressure Support Vent Sodium (136-145) mmol/L Potassium (3.5-5.1) mmol/L Chloride (98-107) mmol/L Carbon Dioxide (21-32) mmol/L Anion Gap (3-11) BUN (7-18) mg/dl Creatinine (0.6-1.2) mg/dl Est Cr Clr Drug Dosing ml/min Est GFR ( Amer) Est GFR (Non-Af Amer) BUN/Creatinine Ratio (10-20) Glucose (70-99) mg/dl POC Glucose 93 93 (70-99) mg/dl Calcium (8.5-10.1) mg/dl Phosphorus (2.5-4.9) mg/dl Magnesium (1.8-2.4) mg/dl Vancomycin Trough (See Comment) mcg/ml Coding Level of Care Code 15813 Subseq Hosp Care Lvl 3 Diagnoses 2019 novel coronavirus–infected pneumonia (NCIP)#8211;infected pneumonia (NCIP) U07.1; J12.89 Paroxysmal A-fib I48.0 Acute encephalopathy G93.40 Tracheitis J04.10 MRSA (methicillin resistant staph aureus) culture positive Z22.322 Comment Please add ventilator management to coding
[2020-11-22 12:59] LABS: Partial Thromboplastin Time 55.8 Seconds (21.0-31.0)
[2020-11-22] MEDS: hydrALAZINE HCL 20 MG/ML VIAL IV PRN (18:15)
[2020-11-22] MEDS: LANSOPRAZOLE 30 MG SOLTAB PO SCH (21:42)
[2020-11-22] MEDS: ASPIRIN 81 MG CHEW PO SCH (21:46)
[2020-11-22] MEDS ORDERED: STAT IV Infusion **Titration per Protocol STA (22:22)
[2020-11-22] MEDS ORDERED: DOPamine / D5W 400 MG/250 ML BAG IV SCH (22:30)
[2020-11-22 23:37] LABS: BUN Creatinine Ratio 41.1 (10-20); Calcium 8.7 mg/dl (8.5-10.1); Creatinine Clr Calc Pharmacy 260.3 ml/min; Est GFR (African American) 146.7; Est GFR (Non-African American) 126.6; Magnesium 2.1 mg/dl (1.8-2.4); Phosphorus 2.3 mg/dl (2.5-4.9); Potassium 2.9 mmol/L (3.5-5.1)
[2020-11-22] MEDS ORDERED: POTASSIUM PHOSPHATE 30 MMOL in SODIUM CHLORIDE 0.9% 500 ML IV ONE (23:45)
[2020-11-22] MEDS ORDERED: POTASSIUM PHOS 3 MMOL/1 ML INFUSION IV STA (23:52)
[2020-11-23] MEDS: INSULIN ASPART 100 UNITS/ML 3 ML PEN SC SCH ×5 (00:22→23:58)
[2020-11-23] MEDS: POTASSIUM CHLORIDE / WTR 10 MEQ/100 ML PLCT IV SCH ×2 (00:45→02:06)
[2020-11-23] MEDS: metroNIDAZOLE 500 MG/100 ML BAG IV SCH ×3 (05:00→20:45)
[2020-11-23 05:05] LABS: iSTAT Allen Test Pass; iSTAT Art Bld Gas pCO2 Correct 40 mmHg (35-46); iSTAT Art Bld Gas pH Corrected 7.473 (7.35-7.45); iSTAT Arterial Blood Gas HCO3 29 meg/L (19-24); iSTAT Arterial Blood Gas pCO2 39 mmHg (35-46); iSTAT Arterial Blood Gas pH 7.48 (7.35-7.45); iSTAT Arterial Blood Gas pO2 63 mmHg (80-95); iSTAT Arterial Blood Gas pO2 C 64; iSTAT Carbon Dioxide 30 mmol/L (24-31); iSTAT FiO2 40 %; iSTAT Hematocrit 27 % (37-47); iSTAT Hemoglobin 9.2 g/dl (12.0-16.0); iSTAT Potassium 3.4 mmol/L (3.3-5.0); iSTAT Site R Radial; iSTAT Sodium 142 mmol/L (135-144)
[2020-11-23] MEDS: LEVOTHYROXINE SODIUM 50 MCG TABLET PO SCH (06:36)
[2020-11-23] MEDS: hydrALAZINE TAB 50 MG TAB NG SCH ×3 (06:36→22:15)
[2020-11-23 06:58] LABS: Basophils # (auto) 0.04 K/uL (0-0.2); Basophils % (auto) 0.3 %; Eosinophils % (auto) 1.9 %; Hematocrit (blood only) 30.3 % (37-47); Hemoglobin 9.6 g/dL (12.0-16.0); Immature Granulocytes # (auto) 0.44 K/uL (0.00-0.02); Immature Granulocytes % (auto) 2.8 %; Lymphocytes # (auto) 0.91 K/uL (1.2-3.4); Lymphocytes % (auto) 5.7 %; Mean Corpuscular Hemoglobin 31.4 pg (25-34); Mean Corpuscular Hgb Conc 31.7 g/dL (32-36); Mean Platelet Volume 9.7 fL (7.4-10.4); Monocytes # (auto) 0.75 K/uL (0.11-0.59); Monocytes % (auto) 4.7 %; Neutrophils # (auto) 13.46 K/uL (1.4-6.5); Neutrophils % (auto) 84.6 %; Nucleated RBC # (auto) 0.07 K/uL (0-0); Nucleated RBC % (auto) 0.4 %; Platelet Count 444 K/uL (130-400); RDW Coefficient of Variation 16.9 % (11.5-14.5); RDW Standard Deviation 59.6 fL (36.4-46.3); Red Blood Count 3.06 M/uL (4.2-5.4)
[2020-11-23 07:29] LABS: Partial Thromboplastin Ratio 2.3
[2020-11-23] MEDS ORDERED: VANCOMYCIN TROUGH ONE ×2 (07:30→08:30)
[2020-11-23 07:32] LABS: Partial Thromboplastin Time 63.5 Seconds (21.0-31.0)
[2020-11-23 07:37] LABS: Albumin Globulin Ratio 0.5 (0.9-2); Albumin Level 2.3 gm/dl (3.4-5.0); BUN Creatinine Ratio 38.8 (10-20); Bilirubin,Total 0.4 mg/dl (0.2-1); Calcium 8.7 mg/dl (8.5-10.1); Creatinine Clr Calc Pharmacy 258.5 ml/min; Est GFR (African American) 146.7; Est GFR (Non-African American) 126.6; Globulin 4.5 gm/dl (2.5-4.0); Phosphorus 3.5 mg/dl (2.5-4.9); Potassium 3.5 mmol/L (3.5-5.1); Total Protein 6.8 gm/dl (6.4-8.2)
--- NOTE | 2020-11-23 07:44 | Critical Care Progress Note ---
Date of Service November 23, 2020 Assessment & Plan (1) 2019 novel coronavirus–infected pneumonia (NCIP)#8211;infected pneumonia (NCIP): Impression: 69-year-old female with severe acute hypoxemic respiratory failure intubated due to novel coronavirus s/p ARDS with tracheostomy and PEG tube placement. PLAN: Neuro: Continues to have delirium. She appears flaccid in all her extremities. -Consider MRI of the brain in the near future if no improvement. Resp: Continue pressure support during the day and assist control at night. We will continue to wean ventilator as able. Tracheostomy exchange was completed on 11/18/2020. Continues to have significant mucopurulent secretions. Currently on vancomycin for total of 7 days. Pharmacy is assisting with dosing. She is growing staph aureus from the tracheostomy site. Tracheostomy cultures growing Prevotella intermedia as well. Flagyl started yesterday. -Aerosol trach mask trials to begin -11/22 TRINI: 1 hour -11/23 TRINI: 1.5 hours: Patient became tachypneic -6 TRINI: 1 hour -7 TRINI: 1.5 hours -8 TRINI: 2 hours CV: She has paroxysmal atrial fibrillation during this hospital admission. Heparin drip on hold due to PEG tube placement. -Amlodipine optimized 10 mg p.o. daily -Increase metoprolol to 50 mg 3 times daily -Discontinue oral hydralazine -Given that patient would likely transition to LTAC/long term facility we will start Pradaxa for A. fib prophylaxis TSH: 0.9 within normal limit 11/10/2020 ID: Continue vancomycin and Flagyl for MRSA and Prevotella intermedia growing from the secretions around the tracheostomy site. Tracheostomy exchange occurred on 11/18. -Patient's Covid positive was in September greater than 21 days ago stable for transfer out of Covid unit GI/Nutrition: PEG tube has been placed. Restart tube feeds. -Transition to oral PPI patient was on previously Heme: Need for long-term anticoagulation: Atrial fibrillation -Pradaxa 75 mg twice daily. Endocrine: Glycemic control per protocol. Continue Synthroid Code Status: DNR. Disposition: ICU at this time due to ventilatory requirements and she will likely need LTAC placement in the near future. Overall prognosis guarded. (2) Paroxysmal A-fib: (3) Acute encephalopathy: (4) Tracheitis: (5) MRSA (methicillin resistant staph aureus) culture positive: Admission and Anticipated Discharge Date Admission Date: October 15, 2020 Subjective On trach trial today she tolerated approximately 1.5 hours, tolerated 1 hour yesterday Review of Systems Review of Systems: Unobtainable due to reduced consciousness Physical Exam Physical Exam: General: Alert. nontoxic. Skin: Warm, dry, Head: Atraumatic Ears, nose, mouth and throat: airway patent, tracheostomy tube in place Cardiovascular: Normal peripheral perfusion Respiratory: no respiratory distress Gastrointestinal: Non distended Musculoskeletal: No deformity Results & Data Results & Data ([facility]) Vital Signs (Past 12 Hours) Vital Signs Temp Pulse Resp BP Pulse Ox 11/23/20 04:32 75 28 H 93 11/23/20 00:00 57 L 11/22/20 23:51 74 32 H 92 11/22/20 23:40 37.2 C 92 H 22 136/60 93 11/22/20 23:00 56 L 136/60 94 11/22/20 22:00 57 L 132/52 L 93 11/22/20 21:00 62 158/60 H 94 11/22/20 20:00 37.4 C 62 164/68 H 93 Coding Level of Care Code 90360 Subseq Hosp Care Lvl 3 Diagnoses 2019 novel coronavirus–infected pneumonia (NCIP)#8211;infected pneumonia (NCIP) U07.1; J12.89 Paroxysmal A-fib I48.0 Acute encephalopathy G93.40 Tracheitis J04.10 MRSA (methicillin resistant staph aureus) culture positive Z22.322 Comment Please add ventilator management code
[2020-11-23] MEDS: METOPROLOL TARTRATE 25 MG TAB PO SCH ×2 (07:56→13:40)
[2020-11-23] MEDS: amLODIPine BESYLATE 5 MG TAB PO SCH (07:57)
[2020-11-23] MEDS: ARTIFICIAL TEARS OP OINT 3.5 GM TUBE OP SCH ×2 (07:57→20:46)
[2020-11-23] MEDS: VANCOMYCIN HCL 1,250 MG in SODIUM CHLORIDE 0.9% 250 ML IV SCH ×2 (09:23→20:45)
[2020-11-23] MEDS: LANSOPRAZOLE 30 MG SOLTAB PO SCH (09:23)
[2020-11-23] MEDS: fentaNYL citrate 100 MCG/2 ML VIAL IV PRN (10:19)
--- NOTE | 2020-11-23 10:20 | Pharmacy Report ---
Pharmacy Abx Dose Short Note - Date of Service November 23, 2020 - Assessment & Plan Assessment * 69 year old F admitted to ICU for COVID19 pneumonia. She has developed a tracheitis and is growing MRSA + prevotella in her tracheostomy drainage. * Pharmacy has been consulted to dose VANCOMYCIN IV. Metronidazole IV continues for prevotella coverage. * Today is Day # 6 VANCOMYCIN therapy * Renal fxn cannot be accurately estimated in this patient given low level of SCr and obesity. SCr however has been stable and UOP > 0.5mL/kg/hr Plan Vancomycin * Trough level of 20.6 mcg/mL was drawn at the inappropriate time. Lab retimed the trough order and sarah beth the level 2 hrs early. Last evening's vancomycin dose was hung ~ 4 hrs late. True trough would have been less than 20. Although uncertain, it is likely trough could be greater than 15 prior to redosing if administered Q 12 hrs. Will continue same dose and recheck trough level in 2 days. * Goal trough level for tracheitis : 15 to 20 mcg/mL (not a candidate for AUC dosing) * Trough level ordered for: 11/25/20 Pharmacy will continue to follow and will adjust dose/frequency as necessary. Thank you.
--- NOTE | 2020-11-23 11:16 | XRay Report ---
SINGLE VIEW CHEST CLINICAL HISTORY: Hypoxia. Respiratory failure. FINDINGS: An AP, portable, upright chest radiograph is compared to study dated 11/22/2020. Correlation is made with chest CT dated 10/15/2020. The examination is degraded by portable technique and patient rotation. A tracheostomy is unchanged in position. The cardiomediastinal silhouette is unremarkable noting atherosclerotic calcification of the thoracic aorta. Diffuse airspace consolidation throughou t both lungs is unchanged. Small pleural effusions are suspected. No pneumothorax is seen. The skelet al structures are osteopenic. The bony thorax is grossly intact. Cholecystectomy clips are noted in t he right upper quadrant. IMPRESSION: 1. Diffuse/multifocal airspace consolidation is unchanged. 2. Small pleural effusions are suspected. ACT 112: Negative or not required by law. Electronically signed by: Steven Chavez M.D. 11/23/2020 11:14 AM
[2020-11-23] MEDS: MULTI VIT W/MINERALS LIQUID 15 ML UDP PO SCH (11:49)
--- NOTE | 2020-11-23 12:26 | Electrocardiogram Report ---
Test Reason : Blood Pressure : / mmHG Vent. Rate : 073 BPM Atrial Rate : 073 BPM P-R Int : 150 ms QRS Dur : 088 ms QT Int : 396 ms P-R-T Axes : 060 038 031 degrees QTc Int : 436 ms Sinus rhythm with Premature supraventricular complexes Otherwise normal ECG When compared with ECG of 16-NOV-2020 15:31, Significant changes have occurred Confirmed by Matthew Miguel ([id number]) on 11/23/2020 12:26:09 PM Referred By: REFERRED SELF Confirmed By:Matthew Miguel
--- NOTE | 2020-11-23 12:45 | Electrocardiogram Report ---
Test Reason : Blood Pressure : / mmHG Vent. Rate : 094 BPM Atrial Rate : 094 BPM P-R Int : 134 ms QRS Dur : 086 ms QT Int : 364 ms P-R-T Axes : 061 042 046 degrees QTc Int : 455 ms Sinus rhythm with sinus arrhythmia with occasional Premature ventricular complexes Otherwise normal ECG When compared with ECG of 22-NOV-2020 22:35, (unconfirmed) Premature ventricular complexes are now Present Premature supraventricular complexes are no longer Present Confirmed by Matthew Miguel ([id number]) on 11/23/2020 12:45:33 PM Referred By: REFERRED SELF Confirmed By:Matthew Miguel
[2020-11-23] MEDS ORDERED: WARFARIN SOD 10 MG TAB PO SCH (16:00)
[2020-11-23] MEDS: SENNA 8.6 MG TAB PO SCH (16:40)
--- NOTE | 2020-11-23 17:06 | Hospitalist Progress Note ---
Date of Service November 23, 2020 Assessment & Plan (1) Acute encephalopathy: improving mental status but with profound weakness, critical care myopathy, alertness and command responses are improving daily Neurology consult 11/16/20: CTH did not show hemorrhagic strokes - continue holding all sedation except for seroquel 25mg bid. Avoid opiates and benzos that can worsen mental status/cause confusion in the elderly. Ok to use ketamine or precedex as needed for agitation if Seroquel not working. (2) Acute respiratory failure with hypoxia: Intubated on 10/27 after nearly two weeks of high flow and BIPAP tracheostomy on 11/05. trach change 11/18 Patient now on CPAP via her trach with a pressure support of 12 PEEP of 6 and FiO2 of 45 high dose Decadron added for late ARDS with 20mg daily, then down to 10mg daily until 11/12, then stopped ultimate plan is for LTACH, did have tracheostomy change 11/18 PEG placed 11/21, resume tube feeds per ICU will make referral to LTACH, hopeful for placement later this week (3) Pneumonia due to COVID-19 virus: stopped Decadron 10/29, resumed higher dose Decadron for late ARDS, complete 11/12 completed course of Remdesivir, LD 10/19 convalescent plasma on 10/16 Prognosis some slight improvement looking into LTACH once more stable sputum culture with Klebsiella, treated with Rocephin transiently on meropenen, now change to vanco given some purulent material aroung trach, concern for mrsa colonization, and also covers sinusitis seen on CT (4) Afib: anticoagulated with heparin gtt rate controlled with metoprolol tartrate , heparin on hold for peg MN 1/2-3 resume anticoagulation now that PEG placed, will need NOAC via PEG (5) Hypertension: on metoprolol 25 tid, Hydralazine 50 q8, amlodipine 10mg daily via PEG (6) Metabolic acidosis: Resolved (7) Sepsis: Source - COVID-19 +/- possible bacterial PNA completed course of Levaquin currently is on ceftriaxone sputum culture then with Klebsiella, sinusitis on vancomycin (8) Prediabetes: HbA1C 5.9 in May (9) Hyperlipidemia: Continue her usual rosuvastatin dosing via PEG (10) GERD (gastroesophageal reflux disease): Continue her usual pantoprazole 40mg iv daily (11) Esophageal dysmotility: Aspiration precautions. (12) Hypothyroidism: TSH 1.31 in Aug. Continue levothyroxine 75 mcg PO daily (13) Anxiety: now on sedation scheduled clonazepam (14) DVT prophylaxis: on heparin gtt for afib Admission and Anticipated Discharge Date Admission Date: October 15, 2020 Subjective patient with some agitation and tachypnea and chest pain late this morning saturations dropped to 82% and RR up to 30's improved with 50mcg of Fentanyl and turning up FiO2 to 60% CXR was normal and EKG without significant changes will move down to regular ICU as she does not need isolation discussed with Dr. Richards Review of Systems Respiratory: + cough and + dyspnea Cardiovascular: + chest pain Psychiatric: + anxiety Physical Exam Constitutional: well developed, well nourished and + mechanically ventilated (supine, tracheostomy) Neck: trachea midline, no thyromegaly + tracheostomy present Respiratory: + labored breathing and + tachypneic; no respiratory distress Auscultation: lungs clear to auscultation bilaterally Cardiovascular: RRR, no murmur, no edema Gastrointestinal (Abdomen): normal bowel sounds, soft, nontender, no hepatosplenomegaly Musculoskeletal: no cyanosis or clubbing, extremities motor strength 5/5 Head/Neck/Chest: normocephalic, head atraumatic and neck supple Extremities: extremities normal to inspection; no cyanosis and no clubbing Skin: no rashes, warm and dry Neurologic: patellar DTR's 2+ bilat, sensation intact and PERRL, EOMI, accommodation nl, no face palsy, no dysarthria CN's II-XI intact bilaterally; + does not move all extremities Psychiatric: A+Ox3, euthymic affect Affect: + anxious affect Results & Data Results & Data ([facility]) Vital Signs (Past 12 Hours) Vital Signs Temp Pulse Resp BP Pulse Ox 11/23/20 16:00 72 92 11/23/20 15:55 43 L 120/59 L 94 11/23/20 15:39 22 151/75 H 98 11/23/20 15:09 96 H 33 H 96 11/23/20 15:00 70 148/79 H 94 11/23/20 14:08 75 134/74 95 11/23/20 14:00 87 94 11/23/20 12:00 57 L 138/63 96 11/23/20 11:00 58 L 138/65 96 11/23/20 10:41 94 H 158/71 H 89 L 11/23/20 10:24 31 H 11/23/20 10:15 81 160/83 H 83 L 11/23/20 10:00 83 149/69 H 86 L 11/23/20 09:00 90 158/71 H 88 L 11/23/20 08:01 36.8 C 64 160/71 H 94 11/23/20 08:00 71 93 Laboratory Results Laboratory Results - last 24 hr 11/22/20 11/22/20 11/22/20 18:03 22:44 23:39 WBC RBC Hgb POC Hgb Hct POC Hct MCV MCH MCHC RDW Std Deviation RDW Coeff of Mary Plt Count MPV Immature Gran % (Auto) Neut % (Auto) Lymph % (Auto) [place] % (Auto) Eos % (Auto) Baso % (Auto) Neut # (Auto) Lymph # (Auto) [place] # (Auto) Eos # (Auto) Baso # (Auto) Immature Gran # (Auto) Absolute Nucleated RBC Nucleated RBC % (auto) APTT PTT Ratio Sample Site POC pH POC pCO2 POC pO2 POC HCO3 POC Total CO2 POC Base Excess ABG pH (Temp Correct) ABG pCO2 (Temp Corrct POC ABG pO2 at Pt Temp POC ABG O2 Sat Kishan Test O2 Delivery Device POC FiO2 PEEP POC Sodium Sodium 143 POC Potassium Potassium 2.9 L Chloride 107 Carbon Dioxide 32 Anion Gap 5.0 BUN 10 Creatinine 0.24 L Est Cr Clr Drug Dosing 260.3 Est GFR ( Amer) 146.7 Est GFR (Non-Af Amer) 126.6 BUN/Creatinine Ratio 41.1 H Glucose 118 H POC Glucose 124 H 117 H Calcium 8.7 Phosphorus 2.3 L Magnesium 2.1 Total Bilirubin AST ALT Alkaline Phosphatase Total Protein Albumin Globulin Albumin/Globulin Ratio Vancomycin Trough 11/23/20 11/23/20 11/23/20 04:42 05:38 05:38 WBC RBC Hgb POC Hgb 9.2 L Hct POC Hct 27 L MCV MCH MCHC RDW Std Deviation RDW Coeff of Mary Plt Count MPV Immature Gran % (Auto) Neut % (Auto) Lymph % (Auto) [place] % (Auto) Eos % (Auto) Baso % (Auto) Neut # (Auto) Lymph # (Auto) [place] # (Auto) Eos # (Auto) Baso # (Auto) Immature Gran # (Auto) Absolute Nucleated RBC Nucleated RBC % (auto) APTT PTT Ratio Sample Site R Radial POC pH 7.48 H POC pCO2 39 POC pO2 63 L POC HCO3 29 H POC Total CO2 30 POC Base Excess 6.0 H ABG pH (Temp Correct) 7.473 H ABG pCO2 (Temp Corrct 40 POC ABG pO2 at Pt Temp 64 POC ABG O2 Sat 93.0 Kishan Test Pass O2 Delivery Device Ventilator POC FiO2 40 PEEP 6 POC Sodium 142 Sodium 141 POC Potassium 3.4 Potassium 3.5 D Chloride 105 Carbon Dioxide 31 Anion Gap 5.0 BUN 9 Creatinine 0.24 L Est Cr Clr Drug Dosing 258.5 Est GFR ( Amer) 146.7 Est GFR (Non-Af Amer) 126.6 BUN/Creatinine Ratio 38.8 H Glucose 117 H POC Glucose Calcium 8.7 Phosphorus 3.5 D Magnesium 2.0 Total Bilirubin 0.4 AST 27 ALT 33 Alkaline Phosphatase 105 Total Protein 6.8 Albumin 2.3 L Globulin 4.5 H Albumin/Globulin Ratio 0.5 L Vancomycin Trough 20.6 11/23/20 11/23/20 11/23/20 05:38 05:38 06:25 WBC 15.90 H RBC 3.06 L Hgb 9.6 L POC Hgb Hct 30.3 L POC Hct MCV 99.0 MCH 31.4 MCHC 31.7 L RDW Std Deviation 59.6 H RDW Coeff of Mary 16.9 H Plt Count 444 H MPV 9.7 Immature Gran % (Auto) 2.8 Neut % (Auto) 84.6 Lymph % (Auto) 5.7 [place] % (Auto) 4.7 Eos % (Auto) 1.9 Baso % (Auto) 0.3 Neut # (Auto) 13.46 H Lymph # (Auto) 0.91 L [place] # (Auto) 0.75 H Eos # (Auto) 0.30 Baso # (Auto) 0.04 Immature Gran # (Auto) 0.44 H Absolute Nucleated RBC 0.07 H Nucleated RBC % (auto) 0.4 APTT 63.5 H* PTT Ratio 2.3 Sample Site POC pH POC pCO2 POC pO2 POC HCO3 POC Total CO2 POC Base Excess ABG pH (Temp Correct) ABG pCO2 (Temp Corrct POC ABG pO2 at Pt Temp POC ABG O2 Sat Kishan Test O2 Delivery Device POC FiO2 PEEP POC Sodium Sodium POC Potassium Potassium Chloride Carbon Dioxide Anion Gap BUN Creatinine Est Cr Clr Drug Dosing Est GFR ( Amer) Est GFR (Non-Af Amer) BUN/Creatinine Ratio Glucose POC Glucose 126 H Calcium Phosphorus Magnesium Total Bilirubin AST ALT Alkaline Phosphatase Total Protein Albumin Globulin Albumin/Globulin Ratio Vancomycin Trough 11/23/20 11/23/20 11:56 12:29 WBC RBC Hgb POC Hgb Hct POC Hct MCV MCH MCHC RDW Std Deviation RDW Coeff of Mary Plt Count MPV Immature Gran % (Auto) Neut % (Auto) Lymph % (Auto) [place] % (Auto) Eos % (Auto) Baso % (Auto) Neut # (Auto) Lymph # (Auto) [place] # (Auto) Eos # (Auto) Baso # (Auto) Immature Gran # (Auto) Absolute Nucleated RBC Nucleated RBC % (auto) APTT PTT Ratio Sample Site POC pH POC pCO2 POC pO2 POC HCO3 POC Total CO2 POC Base Excess ABG pH (Temp Correct) ABG pCO2 (Temp Corrct POC ABG pO2 at Pt Temp POC ABG O2 Sat Kishan Test O2 Delivery Device POC FiO2 PEEP POC Sodium Sodium POC Potassium Potassium Chloride Carbon Dioxide Anion Gap BUN Creatinine Est Cr Clr Drug Dosing Est GFR ( Amer) Est GFR (Non-Af Amer) BUN/Creatinine Ratio Glucose POC Glucose 138 H 143 H Calcium Phosphorus Magnesium Total Bilirubin AST ALT Alkaline Phosphatase Total Protein Albumin Globulin Albumin/Globulin Ratio Vancomycin Trough Medications Administered Current Inpatient Medications Amlodipine Besylate (Amlodipine Besylate 5 Mg Tab) 10 mg PO QAM HARISH Stop: 12/08/20 14:44 Last Admin: 11/23/20 07:57 Dose: 10 mg Documented by: Aspirin (Aspirin 81 Mg Chew) 81 mg PO HS HARISH Stop: 11/27/20 20:59 Last Admin: 11/22/20 21:46 Dose: 81 mg Documented by: Atropine Sulfate (Atropine Sulfate 0.1 Mg/Ml Syringe) 1 mg INJ PRN PRN PRN Reason: HR < 40 Stop: 12/13/20 10:45 Famotidine (Famotidine 20 Mg Tab) 20 mg PO DAILY HARISH Stop: 12/24/20 08:59 Heparin Sodium (Beef Lung) (Heparin 10 Unit/Ml 5 Ml Flush) 5 ml FLUSH PRN PRN PRN Reason: Flush Stop: 11/27/20 22:57 Hydralazine HCl (Hydralazine Tab 50 Mg Tab) 50 mg NG Q8 [facility] Stop: 12/11/20 13:59 Last Admin: 11/23/20 13:40 Dose: 50 mg Documented by: Heparin Sodium/Dextrose (Heparin Sodium/Dextrose) 25,000 units in 500 mls @ 29 mls/hr IV .[id number] [facility]; Protocol Stop: 12/18/20 11:14 Last Titration: 11/23/20 09:19 Dose: 1,450 units/hr, 29 mls/hr Documented by: Vancomycin HCl 1,250 mg/ (Sodium Chloride) 275 mls @ 200 mls/hr IV Q12H [facility] Stop: 11/26/20 15:59 Last Infusion: 11/23/20 10:46 Dose: Infused Documented by: Metronidazole (Flagyl) 500 mg in 100 mls @ 100 mls/hr IV Q8H [facility] Stop: 11/27/20 19:59 Last Infusion: 11/23/20 12:50 Dose: Infused Documented by: Insulin Aspart (Insulin Aspart 100 Units/Ml 3 Ml Pen) 0 units SC Q6 [facility]; Protocol Stop: 12/17/20 11:59 Last Admin: 11/23/20 11:56 Dose: 2 units Documented by: Levothyroxine Sodium (Levothyroxine Sodium 50 Mcg Tablet) 50 mcg PO DAILYBB [facility] Stop: 12/16/20 06:29 Last Admin: 11/23/20 06:36 Dose: 50 mcg Documented by: Metoprolol Tartrate (Metoprolol Tartrate 50 Mg Tab) 50 mg PO TID [facility] Stop: 12/23/20 20:59 Miscellaneous Information (Vancomycin Consult Active) 1 ea N/A UD PRN PRN Reason: Consult Stop: 12/18/20 09:07 Multi-Ingredient Cream (Artificial Tears Op Oint 3.5 Gm Tube) 1 appln OP BID [facility] Stop: 12/17/20 20:59 Last Admin: 11/23/20 07:57 Dose: 1 appln Documented by: Multivitamins/Minerals (Multi Vit W/Minerals Liquid 15 Ml Udp) 15 ml PO DAILY @1200 [facility] Stop: 01/10/21 11:59 Last Admin: 11/23/20 11:49 Dose: 15 ml Documented by: Nutritional Formula (Peptamen Intense Vhp 1.0 Juan Daniel 1,000 Ml Bag) 1,000 ml OG DAILY@1600 HARISH; Protocol Stop: 12/03/20 15:59 Last Admin: 11/20/20 08:36 Dose: 1,000 ml Documented by: Polyethylene Glycol (Polyethylene (Miralax) 17 Gm Pack) 17 gm PO DAILY PRN PRN Reason: Constipation Stop: 12/06/20 09:00 Rosuvastatin Calcium (Rosuvastatin Calcium 5 Mg Tab) 5 mg PO MoWeFr@0900 [facility] Stop: 12/19/20 08:59 Last Admin: 11/22/20 07:54 Dose: 5 mg Documented by: Sennosides (Senna 8.6 Mg Tab) 17.2 mg PO QAM [facility] Stop: 11/24/20 09:01 Last Admin: 11/23/20 16:40 Dose: 17.2 mg Documented by: Warfarin Sodium (Warfarin Sod 10 Mg Tab) 10 mg PO 1600 [facility] Stop: 11/23/20 18:00 Last Admin: 11/23/20 16:40 Dose: 10 mg Documented by: PG Care Time/CCT Total # of Minutes Spent Total Time Spent with Patient: Total time spent is greater than 50% in coordination of care (as documented) at patient's floor/unit and/or counseling patient: Coding Level of Care Code 29545 Subseq Hosp Care Lvl 2 Diagnoses Acute encephalopathy G93.40 Acute respiratory failure with hypoxia J96.01 Pneumonia due to COVID-19 virus U07.1; J12.89 Afib I48.91 Hypertension I10 Metabolic acidosis E87.2 Sepsis A41.9 Sepsis acute organ dysfunction status: unspecified Sepsis type: sepsis due to unspecified organism Prediabetes R73.03 Hyperlipidemia E78.5 GERD (gastroesophageal reflux disease) K21.9 Esophageal dysmotility K22.4 Hypothyroidism E03.9 Anxiety F41.9 DVT prophylaxis Z29.9 (1) Sepsis Sepsis acute organ dysfunction status: unspecified Sepsis type: sepsis due to unspecified organism Qualified Code(s): A41.9 - Sepsis, unspecified organism
[2020-11-23] MEDS: PEPTAMEN INTENSE VHP 1.0 CAL 1,000 ML BAG OG SCH (17:19)
[2020-11-23] MEDS: Heparin Adult LOW DOSE Wt-Based Dextrose 5% 25,000 units/500 mL IV SCH (17:21)
[2020-11-23] MEDS: ASPIRIN 81 MG CHEW PO SCH (20:48)
[2020-11-23] MEDS: METOPROLOL TARTRATE 50 MG TAB PO SCH (20:48)
[2020-11-23] MEDS ORDERED: DABIGATRAN ETEXILATE 75 MG CAP PO SCH (21:00)
[2020-11-24] MEDS ORDERED: fentaNYL citrate 100 MCG/2 ML VIAL IV ONE (01:16)
[2020-11-24] MEDS ORDERED: fentaNYL citrate 100 MCG/2 ML VIAL ONE (01:19)
[2020-11-24] MEDS: metroNIDAZOLE 500 MG/100 ML BAG IV SCH ×2 (04:21→11:51)
[2020-11-24 05:17] LABS: Hematocrit (blood only) 27.6 % (37-47); Hemoglobin 8.6 g/dL (12.0-16.0); Mean Corpuscular Hemoglobin 31.3 pg (25-34); Mean Corpuscular Hgb Conc 31.2 g/dL (32-36); Mean Corpuscular Volume 100.4 fL (80-100); Mean Platelet Volume 9.2 fL (7.4-10.4); Nucleated RBC # (auto) 0.03 K/uL (0-0); Nucleated RBC % (auto) 0.2 %; Platelet Count 327 K/uL (130-400); RDW Coefficient of Variation 16.8 % (11.5-14.5); RDW Standard Deviation 59.9 fL (36.4-46.3); Red Blood Count 2.75 M/uL (4.2-5.4); White Blood Count 13.59 K/uL (4.8-10.8)
[2020-11-24 05:49] LABS: INR 1.3 (0.9-1.1); Partial Thromboplastin Ratio 4.2
[2020-11-24 05:52] LABS: ALC (manual) 0.71 K/uL (1.2-3.4); ANC (manual) 11.59 K/uL (1.4-6.5); Basophils # (manual) 0.12 K/uL (0-0.2); Basophils % (manual) 0.9 %; Eosinophils # (manual) 0.23 K/uL (0-0.5); Eosinophils % (manual) 1.7 %; Lymphocytes # (manual) 0.71 K/uL (1.2-3.4); Lymphocytes % (manual) 5.2 %; Monocytes # (manual) 0.71 K/uL (0.11-0.59); Monocytes % (manual) 5.2 %; Myelocytes # (manual) 0.23 K/uL (0-0); Myelocytes % (manual) 1.7 %; Neutrophils # (manual) 11.59 K/uL (1.4-6.5); Neutrophils % (manual) 85.3 %; Polychromasia 1+
[2020-11-24] MEDS: LEVOTHYROXINE SODIUM 50 MCG TABLET PO SCH (05:56)
[2020-11-24] MEDS: hydrALAZINE TAB 50 MG TAB NG SCH (05:56)
[2020-11-24] MEDS: INSULIN ASPART 100 UNITS/ML 3 ML PEN SC SCH ×2 (05:57→11:57)
[2020-11-24 06:02] LABS: Alanine Aminotransferase 32 U/L (12-78); Albumin Level 2.1 gm/dl (3.4-5.0); Anion Gap 0 (3-11); Aspartate Aminotransferase 19 U/L (15-37); BUN Creatinine Ratio 55.5 (10-20); Blood Urea Nitrogen 10 mg/dl (7-18); Calcium 8.2 mg/dl (8.5-10.1); Carbon Dioxide 36 mmol/L (21-32); Chloride 106 mmol/L (98-107); Creatinine Clr Calc Pharmacy 344.6 ml/min; Est GFR (African American) > 150.0; Est GFR (Non-African American) 139.2; Glucose 119 mg/dl (70-99); Magnesium 2.2 mg/dl (1.8-2.4); Sodium 142 mmol/L (136-145)
[2020-11-24 06:21] LABS: Albumin Globulin Ratio 0.6 (0.9-2); Alkaline Phosphatase 91 U/L (45-117); Bilirubin,Total 0.4 mg/dl (0.2-1); Globulin 3.8 gm/dl (2.5-4.0); Phosphorus 2.3 mg/dl (2.5-4.9); Total Protein 5.9 gm/dl (6.4-8.2)
[2020-11-24] MEDS ORDERED: METOPROLOL TARTRATE 1 MG/ML VIAL IV ONE (07:02)
[2020-11-24] MEDS ORDERED: METOPROLOL TARTRATE 1 MG/ML VIAL IV STA (07:03)
[2020-11-24] MEDS ORDERED: POTASSIUM CHLORIDE / WTR 10 MEQ/100 ML PLCT IV SCH (07:15)
[2020-11-24] MEDS ORDERED: MAGNESIUM SULFATE / D5W 1 GM/100 ML BAG IV ONE (07:15)
[2020-11-24 07:23] LABS: Partial Thromboplastin Ratio 4.2
[2020-11-24 07:26] LABS: Partial Thromboplastin Time 118.2 Seconds (21.0-31.0)
[2020-11-24] MEDS ORDERED: POTASSIUM PHOS 3 MMOL/1 ML INFUSION IV STA (07:35)
[2020-11-24] MEDS ORDERED: Nursing to Pharmacy Communication SCH (07:45)
[2020-11-24] MEDS ORDERED: POTASSIUM PHOSPHATE 18 MMOL in SODIUM CHLORIDE 0.9% 500 ML IV ONE (08:00)
[2020-11-24] MEDS: VANCOMYCIN HCL 1,250 MG in SODIUM CHLORIDE 0.9% 250 ML IV SCH (08:44)
[2020-11-24] MEDS: ROSUVASTATIN CALCIUM 5 MG TAB PO SCH (08:45)
[2020-11-24] MEDS: ARTIFICIAL TEARS OP OINT 3.5 GM TUBE OP SCH (08:45)
[2020-11-24] MEDS: amLODIPine BESYLATE 5 MG TAB PO SCH (08:47)
[2020-11-24] MEDS: METOPROLOL TARTRATE 50 MG TAB PO SCH ×2 (08:47→16:07)
[2020-11-24] MEDS: SENNA 8.6 MG TAB PO SCH (08:49)
[2020-11-24] MEDS: POTASSIUM CHLORIDE 20 MEQ/15 ML UDC PO SCH ×2 (08:50→16:07)
[2020-11-24] MEDS ORDERED: FAMOTIDINE 20 MG TAB PO SCH ×2 (09:00→21:00)
[2020-11-24] MEDS ORDERED: PANTOprazole 40 MG TAB PO SCH (09:00)
[2020-11-24] MEDS ORDERED: oxyCODONE HCL IR 5 MG TAB (IMMEDIATE RELEASE) PO PRN ×2 (10:10)
[2020-11-24] MEDS ORDERED: ACETAMINOPHEN 325 MG TAB PO PRN (10:10)
--- NOTE | 2020-11-24 10:14 | Critical Care Progress Note ---
Date of Service November 24, 2020 Assessment & Plan (1) 2019 novel coronavirus–infected pneumonia (NCIP)#8211;infected pneumonia (NCIP): Impression: 69-year-old female with severe acute hypoxemic respiratory failure intubated due to novel coronavirus s/p ARDS with tracheostomy and PEG tube placement. PLAN: Neuro: Continues to have delirium. She appears flaccid in all her extremities. -Consider MRI of the brain in the near future if no improvement. Pain at tracheostomy site -Roxicodone 5 mg / 10 mg as needed pain and Tylenol Depression/flat affect -Celexa 10 mg daily Resp: Continue pressure support during the day and assist control at night. We will continue to wean ventilator as able. Tracheostomy exchange was completed on 11/18/2020. Continues to have significant mucopurulent secretions. 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 Pharmacy is assisting with dosing. She is growing staph aureus from the tracheostomy site. Tracheostomy cultures growing Prevotella intermedia as well. Flagyl started yesterday 05/02 -Aerosol trach mask trials to begin -11/22 TRINI: 1 hour -11/23 TRINI: 1.5 hours: Patient became tachypneic -11/24 TRINI: 1 hour -11/25 TRINI: 1.5 hours -11/26 TRINI: 2 hours CV: Episode of A. fib with RVR this morning resolved with metoprolol total 5 mg -Amlodipine optimized 10 mg p.o. daily -Increase metoprolol to 50 mg 3 times daily -Discontinue oral hydralazine -Given that patient would likely transition to LTAC/alf facility we will start warfarin for A. fib prophylaxis -5 mg warfarin today TSH: 0.9 within normal limit 11/10/2020 ID: Continue vancomycin and Flagyl for MRSA and Prevotella intermedia growing from the secretions around the tracheostomy site. Tracheostomy exchange occurred on 11/18. -Patient's Covid positive was in September greater than 21 days ago stable for transfer out of Covid unit GI/Nutrition: PEG tube has been placed. Patient to go to [facility] today -Pepcid once twice a day secondary to kidney function and was previously on PPI Heme: Need for long-term anticoagulation: Atrial fibrillation -Warfarin 5 mg today Endocrine: Glycemic control per protocol. Continue Synthroid Code Status: DNR. Disposition: ICU at this time due to ventilatory requirements and she will likely need LTAC placement in the near future. Overall prognosis guarded. (2) Paroxysmal A-fib: (3) Acute encephalopathy: (4) Tracheitis: (5) MRSA (methicillin resistant staph aureus) culture positive: Admission and Anticipated Discharge Date Admission Date: October 15, 2020 Results & Data Results & Data ([facility]) Vital Signs (Past 12 Hours) Vital Signs Temp Pulse Resp BP Pulse Ox 11/24/20 08:51 96 H 11/24/20 07:06 135 H 158/65 H 11/24/20 06:08 63 158/65 H 94 11/24/20 06:00 81 93 11/24/20 05:10 66 30 H 94 11/24/20 05:08 69 123/49 L 94 11/24/20 05:00 65 94 11/24/20 04:25 36.8 C 11/24/20 04:08 59 L 110/44 L 94 11/24/20 03:08 51 L 108/50 L 94 11/24/20 02:20 55 L 23 93 11/24/20 02:08 61 149/46 H 93 11/24/20 01:08 86 146/57 H 92 11/24/20 00:08 63 144/64 H 94 11/24/20 00:00 36.4 C L 47 L 11/23/20 23:20 65 26 H 95 11/23/20 23:08 50 L 143/65 H 95 11/23/20 22:08 73 152/61 H 94 Coding Level of Care Code 71761 Subseq Hosp Care Lvl 3 Diagnoses 2019 novel coronavirus–infected pneumonia (NCIP)#8211;infected pneumonia (NCIP) U07.1; J12.89 Paroxysmal A-fib I48.0 Acute encephalopathy G93.40 Tracheitis J04.10 MRSA (methicillin resistant staph aureus) culture positive Z22.[address] vent management coding as well
[2020-11-24] MEDS ORDERED: CITALOPRAM 20 MG TAB PO SCH (10:15)
[2020-11-24] MEDS ORDERED: WARFARIN SOD 5 MG TAB PO ONE (11:00)
[2020-11-24] MEDS: MULTI VIT W/MINERALS LIQUID 15 ML UDP PO SCH (11:51)
[2020-11-24] MEDS: Heparin Adult LOW DOSE Wt-Based Dextrose 5% 25,000 units/500 mL IV SCH (11:59)
[2020-11-24] MEDS ORDERED: SODIUM CHLORIDE 0.9% 1000ML 1,000 ML IV SCH (13:30)
--- NOTE | 2020-11-24 14:19 | Magnetic Resonance Report ---
MRI OF THE BRAIN WITHOUT IV CONTRAST CLINICAL HISTORY: Anoxia. Covid. COMPARISON STUDY: CT of the brain dated 11/16/2020. TECHNIQUE: MRI of the brain was performed utilizing various T1 and T2-weighted sequences in the axial , sagittal, and coronal planes. IV contrast was not administered for this examination. FINDINGS: Brain parenchyma: There is mild subcortical and periventricular microangiopathic disease. There is no hemorrhage or mass effect. There is no restricted diffusion to suggest acute ischemia. Bateman-white ma tter differentiation is preserved. No extra-axial fluid collection is seen. The cerebellar tonsils ar e normal in configuration. Ventricles, sulci, and cisterns: Normal in configuration. Pituitary and sella: Unremarkable. Intracranial vasculature: Normal flow voids are maintained at the skull base. Orbits: The bony orbits are grossly intact. Orbital contents are normal in appearance. Sinuses and mastoids: There is a small air-fluid level in the right maxillary antrum. Moderate mucosa l thickening and fluid is seen in the sphenoid sinuses. The remaining paranasal sinuses are clear. Th ere are large mastoid effusions. Calvarium: Unremarkable. Cervical cord: Partially visualized cervical spinal cord is normal in morphology and signal intensity . IMPRESSION: 1. No acute intracranial abnormality. 2. Large mastoid effusions. ACT 112: Negative or not required by law. Electronically signed by: Steven Chavez M.D. 11/24/2020 2:18 PM
[2020-11-24] MEDS ORDERED: ATROPINE SULFATE 0.1 MG/ML 10ML SYR IV ONE (14:30)
[2020-11-24] MEDS ORDERED: SODIUM CHLORIDE 0.9% 250 ML IV PRN (14:31)
[2020-11-24] MEDS ORDERED: EPINEPHrine INJ 1 MG/ML AMP ONE (14:39)
--- NOTE | 2020-11-24 15:06 | Death Pronouncement Note ---
Date of Service November 24, 2020 Pronouncement Note Admission Date Admission Date: October 15, 2020 Primary cause of : Acute gastrointestinal hemorrhage approximate interval onset to : Hours Contributing factors: COVID-19 pneumonia, chronic hypoxic respiratory failure secondary to COVID-19 pneumonia, critical illness myopathy, paroxysmal atrial fibrillation, MRSA tracheitis, Burkholderia infection At the time of patient had fixed and dilated pupils, no palpable pulse, no auditory pulse, no respiratory movement, no cardiac DVT seen on ultrasound. Time of : 1442 on November 24, 2020 Contributing Factors (1) 2019 novel coronavirus–infected pneumonia (NCIP)#8211;infected pneumonia (NCIP): (2) Paroxysmal A-fib: (3) Acute encephalopathy: (4) Tracheitis: (5) MRSA (methicillin resistant staph aureus) culture positive: (6) Acute GI hemorrhage: Additional Data Attending physician: Michael Monae DO Coding Level of Care Code None Diagnoses 2019 novel coronavirus–infected pneumonia (NCIP)#8211;infected pneumonia (NCIP) U07.1; J12.89 Paroxysmal A-fib I48.0 Acute encephalopathy G93.40 Tracheitis J04.10 MRSA (methicillin resistant staph aureus) culture positive Z22.322 Acute GI hemorrhage K92.2
--- NOTE | 2020-11-24 16:18 | Discharge Summary ---
Date of Service November 24, 2020 Admission HPI Per Admitting Provider Diane Garcia is a 69 year old female who presents to the ER with cold-like symptoms and recent diagnosis of COVID-19 pneumonia. She reports initially having cold symptoms since the (12 days ago). Symptoms including sore throat, chills, generalized weakness, myalgias, right sided headache and non- productive cough. She denies any objective fevers or shortness of breath. She reports feeling nauseous and losing her appetite. Notes she has not eaten properly for days and main issue is being generally weak to the point most of yesterday she spent on the floor too weak to get up. I discussed her care with the patient's permission with her niece Dipak who confirms the above history. She also notes thinking her Aunt seemed not to be able to complete her sentences yesterday due to shortness of breath and has been getting increasingly confused in addition to generalized weakness. She encouraged her Aunt to call for an ambulance yesterday but she refused. Today she was unable to contact her by phone so called for an ambulance herself. In the ER O2 sats were as low as 65% on room air (when her high flow became disconnected). CXR and subsequent CT concerning for extensive groundglass opacities bilaterally. She was started on treatment for COVID-19 pneumonia with Dexamethasone and referred to medicine for admission. Principal Diagnosis COVID 19 pneumonia causing ARDS and respiratory failure Discharge Exam no pulse, no respirations, no heart tones, no breath sounds, pupils fixed, unresponsive Discharge Data Allergies Allergy/AdvReac Type Severity Reaction Status Date / Time Penicillins Allergy Severe RESP Verified 11/15/20 21:01 DISTRESS/HIVES Consultations 10/15/20 13:36 ED Decision to Admit Stat 10/15/20 20:33 Consult Pulmonology Routine 11/08/20 09:50 Consult Cardiology Routine 11/15/20 08:44 Consult Palliative Care Routine 11/16/20 12:18 Consult Neurology Routine 11/17/20 09:26 Consult Gastroenterology Routine Procedures Performed Operation Date: 11/21/20 12:00 Actual Procedures p EGD Gastric Tube Placement(Not Applicable) - Demetris Drake MD Ordered Studies 10/15/20 11:24 CT angio chest PE protocol Stat CT cervical spine wo con Stat 10/15/20 11:25 CT head/brain wo con Stat 11/16/20 16:27 CT head/brain wo con Urgent 11/24/20 10:09 MR brain wo con Routine Hospital Course (1) Acute GI hemorrhage: patient had sudden, large GI bleed with rapid drop in blood pressure she had never had evidence of GI bleeding prior to the day she RN rolled her after getting MRI of the brain massive amount of melena and ham red blood, blood pressure dropped quickly and patient went PEA she was DNR based on prior discussions with family members she had been hospitalized for over a month with COVID 19 pneumonia, respiratory failure, tracheostomy, PEG tube, encephalopathy plans were for LTACH placement prior to her sudden GI bleed (2) Acute respiratory failure with hypoxia: Intubated on 10/27 after nearly two weeks of high flow and BIPAP tracheostomy on 11/05. trach change 11/18 Patient on CPAP via her trach with a pressure support of 12 PEEP of 6 and FiO2 of 45 high dose Decadron added for late ARDS with 20mg daily, then down to 10mg daily until 11/12, then stopped ultimate plan is for LTACH, did have tracheostomy change 11/18 PEG placed 11/21, resume tube feeds per ICU plans were for LTACH prior to her (3) Pneumonia due to COVID-19 virus: stopped Decadron 10/29, resumed higher dose Decadron for late ARDS, complete 11/12 completed course of Remdesivir, LD 10/19 convalescent plasma on 10/16 looking into LTACH once more stable sputum culture with Klebsiella, treated with Rocephin transiently on meropenen, now change to vanco given some purulent material around trach, concern for mrsa colonization, and also covers sinusitis seen on CT (4) Acute encephalopathy: mental status was improving but with profound weakness, critical care myopathy, alertness and command responses were improving daily Neurology consult 11/16/20: CTH did not show hemorrhagic strokes - continue holding all sedation except for seroquel 25mg bid. Avoid opiates and benzos that can worsen mental status/cause confusion in the elderly. Ok to use ketamine or precedex as needed for agitation if Seroquel not working. went for MRI brain on the day of her to further work up neurological issues, MRI did not show any acute issues, specifically no stroke (5) Afib: anticoagulated with heparin gtt rate controlled with metoprolol tartrate , heparin on hold for peg MN 1/2-3 on NOAC for stroke prevention unfortunately this lead to more profound GI bleeding but it was necessary (6) Hypertension: on metoprolol 25 tid, Hydralazine 50 q8, amlodipine 10mg daily via PEG (7) Metabolic acidosis: Resolved (8) Sepsis: Source - COVID-19 +/- possible bacterial PNA completed course of Levaquin currently is on ceftriaxone sputum culture then with Klebsiella, sinusitis on vancomycin (9) Prediabetes: HbA1C 5.9 in May (10) Hyperlipidemia: Continue her usual rosuvastatin dosing via PEG (11) GERD (gastroesophageal reflux disease): Continue her usual pantoprazole 40mg iv daily (12) Esophageal dysmotility: Aspiration precautions. (13) Hypothyroidism: TSH 1.31 in Aug. Continue levothyroxine 75 mcg PO daily (14) Anxiety: now on sedation scheduled clonazepam Total Time Total Time Spent Total Time Spent (In Minutes): 31 minutes Total Time Includes: Examination of the Patient, Discharge Planning, Medication Reconciliation and Communication With Other Providers (Dr. Richards) Discharge Plan Discharge Items Patient Disposition: Coding Level of Care Code D/C Day Management >30 mins Diagnoses Acute GI hemorrhage K92.2 Acute respiratory failure with hypoxia J96.01 Pneumonia due to COVID-19 virus U07.1; J12.89 Acute encephalopathy G93.40 Afib I48.91 Hypertension I10 Metabolic acidosis E87.2 Sepsis A41.9 Sepsis acute organ dysfunction status: unspecified Sepsis type: sepsis due to unspecified organism Prediabetes R73.03 Hyperlipidemia E78.5 GERD (gastroesophageal reflux disease) K21.9 Esophageal dysmotility K22.4 Hypothyroidism E03.9 Anxiety F41.9
[2020-11-24 16:55] VITALS: BP 105/52; TEMP 98.1
[2020-11-24 17:12] VITALS: PULSE 92; O2SAT 100
[2020-11-25] MEDS ORDERED: VANCOMYCIN TROUGH ONE (07:30)
== END 2020-11-24 17:50 | disposition expired | DRG 4 ==
LOC: ED 10:52 → SUATTDRO 14:29 → 2S 14:29 → 2E 10-16 12:33 → 3W 10-21 10:35 → 2E 10-22 01:06 → 1E 11-23 15:22